=== PATIENT | male | born 1980 | race Caucasian/White ===

== ENCOUNTER 2017-03-11 22:35 | Inpatient (IN) | payer OTHER ==
[2017-03-11] MEDS ORDERED: Naloxone 0.4 mg/ml Inj (Adult) ONE (22:54)
[2017-03-11 22:59] LABS: BASO # 0.05 K/mm3 (0.0-2.0); BASO % 0.4 % (0.0-3.0); EOS # 0.1 (0.0-0.7); EOS % 0.4 % (1.5-5.0); GRAN # 8.59 (1.4-6.5); GRAN % 61.6 % (50.0-68.0); HEMATOCRIT 32.9 % (42.0-52.0); LYMPH # 4.4 (1.2-3.4); LYMPH % 31.8 % (22.0-35.0); MEAN CELL VOLUME 85.9 fl (80.0-105.0); MEAN CORPUSCULAR HEMOGLOBIN 29.2 pg (25.0-35.0); MEAN PLATELET VOLUME 9.6 fl (7.0-11.0); MONO # 0.8 (0.1-0.6); MONO % 5.8 % (1.0-6.0); RED CELL DISTRIBUTION WIDTH 13.1 % (11.5-14.5); WHITE BLOOD COUNT 13.9 10^3/ul (4.5-11.0)
[2017-03-11 23:03] LABS: VENOUS BLOOD GAS BASE EXCESS -20.2 mmol/L (0.0-2.0)
[2017-03-11 23:10] LABS: ALB/GLOB RATIO 1.1 (1.1-1.8); ALKALINE PHOSPHATASE 108 U/L (38-126); ALT/SGPT 220 U/L (7-56); AST/SGOT 303 U/L (17-59); BILIRUBIN,TOTAL 1.2 mg/dL (0.2-1.3); BLOOD UREA NITROGEN 29 mg/dL (7-21); CALCIUM 8.9 mg/dL (8.4-10.5); CARBON DIOXIDE 14 mmol/L (21-33); CHLORIDE 88 mmol/L (98-107); GFR AFRICAN-AMERICAN 35; GLUCOSE,RANDOM 110 mg/dL (70-110); LIPASE 49 U/L (23-300); MAGNESIUM 2.6 mg/dL (1.7-2.2); SODIUM 123 mmol/L (132-148)
[2017-03-11 23:15] LABS: VENOUS BLOOD PH 6.86 (7.32-7.43)
[2017-03-11 23:18] LABS: ABG MECHANICAL RATE 20; ARTERIAL BLOOD GAS HCO3 11.6 mmol/L (21-28); ATERIAL BLOOD GAS PEEP 5
[2017-03-11 23:19] LABS: INR 1.66 (0.93-1.08); PARTIAL THROMBOPLASTIN TIME 59.7 Seconds (23.7-30.8)
--- NOTE | 2017-03-11 23:20 | ED PDOC ---
Arrival/HPI - General Chief Complaint: Cardiac Arrest Time Seen by Provider: 03/11/17 22:48 Historian: EMS - History of Present Illness Narrative History of Present Illness (Text): 03/11/17 22:48 Alvaro Maier is a 36 year old male, whose past medical history includes substance abuse and depression, who presents to the emergency department with cardiac arrest as per EMS. Patient was found in cardiac arrest by ex-girlfriend with a unknown pills and alcohol found next to the patient. EMS arrived found patient in cardiac arrest and administered 3 doses of epinephrine en route without ROSC. Upon arrival, 2 additional doses of epinephrine, additional bicarbonate, amd narcan administered. ROSC obtained in emergency department, CPR reinitiated, and additional Atropine given. Time/Duration: Prior to Arrival Symptom Course: Unchanged Activities at Onset: Rest Context: Home Past Medical History - Provider Review Nursing Documentation Reviewed: Yes - Cardiac Hx Hypertension: Yes Hx Internal Defibrillator: No - Gastrointestinal Other/Comment: Liver damage - Psychiatric Hx Depression: Yes Hx Substance Use: No Family/Social History - Physician Review Nursing Documentation Reviewed: Yes Family/Social History: No Known Family HX Smoking Status: Heavy Smoker > 10 Cigarettes Daily Hx Alcohol Use: Yes Hx Substance Use: No Allergies/Home Meds Allergies/Adverse Reactions: Allergies No Known Allergies Allergy (Verified 03/11/17 23:03) Home Medications: Home Meds Medication Instructions Recorded Confirmed Acetaminophen/Butalbital/Caf 1 tab PO DAILY PRN 03/12/17 03/12/17 [Fioricet] Cholecalciferol (Vitamin D3) 5,000 unit PO DAILY 03/12/17 03/12/17 [Vitamin D3] Citalopram [celeXA] 40 mg PO DAILY 03/12/17 03/12/17 Clonazepam [Klonopin] 1 mg PO DAILY 03/12/17 03/12/17 Diclofenac Sodium [Voltaren] 75 mg PO BID 03/12/17 03/12/17 Ibuprofen [Motrin Tab] 800 mg PO BID 03/12/17 03/12/17 Losartan Potassium 100 mg PO DAILY 03/12/17 03/12/17 Propranolol [Inderal] 40 mg PO TID 03/12/17 03/12/17 amLODIPine [Norvasc] 10 mg PO DAILY 03/12/17 03/12/17 cloNIDine [clonidine HCl] 0.2 mg PO BID 03/12/17 03/12/17 Review of Systems - Review of Systems Systems not reviewed;Unavailable: Acuity of Condition Physical Exam Vital Signs Pulse Resp BP Pulse Ox 03/12/17 01:43 101/66 03/12/17 01:21 64 16 90/44 L 95 03/12/17 01:15 70 16 95/65 L 100 03/12/17 00:05 62 91 H 91/38 L 97 03/11/17 23:49 65 34 H 87/45 L 100 Appearance: Positive for: Other (Pale appearing) - Systems Exam Pupils: Present: Other (Fixed dilated pupils) Respiratory/Chest: Present: Other (coarse breath sounds bilaterally) Abdomen: Present: Distention (Abdomen mildly distended) Medical Decision Making ED Course and Treatment: 03/11/17 23:22 Impression: 36 year old male brought in by EMS presenting with cardiac arrest. Differential Diagnosis included but are not limited to: Plan: -- EKG -- Head CT w/o contrast -- Chest x-ray -- Urinalysis -- ABG -- VBG -- Reassess and disposition Progress Notes: - Lab Interpretations Lab Results: 03/11/17 22:49 03/11/17 22:49 Lab Results 03/11/17 23:13: pCO2 68 H, pO2 59.0 L, HCO3 11.6 L, ABG pH 6.84 L*, ABG Total CO2 13.7 L, ABG O2 Saturation 78.0 L, ABG Base Excess -23.0 L, ABG Potassium 6.1 H, Sodium 122.0 L, Chloride 91.0 L, Glucose 112 H, Lactate 10.5 H*, Mechanical Rate 20, FiO2 100.0, Tidal Volume 450, PEEP 5, Arterial Blood Potassium 6.1 H 03/11/17 22:49: Alcohol, Quantitative < 10 03/11/17 22:49: Salicylates < 1 L, Acetaminophen < 10.0 L 03/11/17 22:49: Sodium 123 L, Chloride 88 L, Potassium 7.3 H*, Carbon Dioxide 14 L, Anion Gap 28 H, BUN 29 H, Creatinine 2.5 H, Est GFR ( Amer) 35, Est GFR (Non-Af Amer) 29, Random Glucose 110, Calcium 8.9, Magnesium 2.6 H, Total Bilirubin 1.2, AST 303 H, ALT 220 H, Alkaline Phosphatase 108, Lactate Dehydrogenase 3576 H, Total Creatine Kinase 117, Troponin I < 0.01, Total Protein 7.0, Albumin 3.7, Globulin 3.4, Albumin/Globulin Ratio 1.1, Lipase 49 03/11/17 22:49: PT 17.9 H, INR 1.66 H, APTT 59.7 H 03/11/17 22:49: WBC 13.9 H, RBC 3.83, Hgb 11.2 L, Hct 32.9 L, MCV 85.9, MCH 29.2 , MCHC 34.0, RDW 13.1, Plt Count 290, MPV 9.6, Gran % 61.6, Lymph % (Auto) 31.8 , [place] % (Auto) 5.8, Eos % (Auto) 0.4 L, Baso % (Auto) 0.4, Gran # 8.59 H, Lymph # 4.4 H, [place] # 0.8 H, Eos # 0.1, Baso # 0.05 03/11/17 22:49: pO2 45, VBG pH 6.86 L*, VBG pCO2 81.0 H*, VBG HCO3 14.5 L, VBG Total CO2 17.0 L, VBG O2 Sat (Calc) 61.2, VBG Base Excess -20.2 L, VBG Potassium 7.6 H*, Sodium 119.0 L*, Chloride 89.0 L, Glucose 120 H, Lactate 9.4 H *, FiO2 21.0, Venous Blood Potassium 7.6 H* I have reviewed the lab results: Yes - RAD Interpretation Radiology Orders: 03/11/17 22:49 CHEST PORTABLE [RAD] Stat 03/11/17 23:14 HEAD W/O CONTRAST [CT] Stat - Medication Orders Current Medication Orders: Albuterol/Ipratropium (Duoneb 3 Mg/0.5 Mg (3 Ml) Ud) 3 ml IH Q2H PRN PRN Reason: Shortness of Breath Last Admin: 03/13/17 15:45 Dose: 3 ml Albuterol/Ipratropium (Duoneb 3 Mg/0.5 Mg (3 Ml) Ud) 3 ml IH [id number] MARICHUY Last Admin: 03/15/17 07:21 Dose: 3 ml Chlorhexidine Gluconate (Peridex) 15 ml PO BID [facility] Last Admin: 03/15/17 10:11 Dose: 15 ml Hydrocortisone Sodium Succinate (Solu-Cortef) 100 mg IVP Q8 [facility] Last Admin: 03/15/17 05:31 Dose: 100 mg IVP Administration Document 03/15/17 05:31 KNOX (Rec: 03/15/17 05:31 [id number]) Charges for Administration # of IVP Administrations 1 NOREPINEPHRINE BIT/0.9 % NACL (Levophed 4 Mg/ 250 Ml Ns Premixed) 4 mg in 250 mls @ 22.5 mls/hr IV .Q11H7M PRN; Protocol; 6 MCG/MIN PRN Reason: TITRATE PER MD ORDER Last Titration: 03/12/17 19:00 Dose: 0 mcg/min, 0 mls/hr Titration Intervention Document 03/12/17 19:00 KNOX (Rec: 03/12/17 21:51 KNOX [id number]) Titration Intake Titration Intake 150 Cumulative Intake 200 Cumulative Intake (Rx) 200 Waste Amount 0 Container Volume 50 Titration Dosing Titration Dose 0 IV Rate 0 Intake/Decrease Paused Cumulative Dose 3.2 Epinephrine HCl 1 mg/ Sodium (Chloride) 51 mls @ 3.06 mls/hr IV .[id number] PRN; Protocol; 1 MCG/MIN PRN Reason: TITRATE PER MD ORDER Last Titration: 03/12/17 19:00 Dose: 0 mcg/min, 0 mls/hr Titration Intervention Document 03/12/17 19:00 KNOX (Rec: 03/12/17 20:57 KNOX [id number]) Titration Intake Titration Intake 51 Cumulative Intake 51 Cumulative Intake (Rx) 51 Waste Amount 0 Container Volume 0 Titration Dosing Titration Dose 0 IV Rate 0 Intake/Decrease Infused Cumulative Dose 0.9999 Vancomycin HCl (Vancomycin 1gm) 1 gm in 250 mls @ 167 mls/hr IVPB DAILY MARICHUY PRN Reason: Protocol Last Admin: 03/14/17 15:30 Dose: Fentanyl Citrate (Fentanyl Citrate/Sodium Chloride 1 Mg/100 Ml) 1,000 mcg in 100 mls @ 5 mls/hr IV .Q20H PRN; Protocol; 50 MCG/HR PRN Reason: TITRATE PER MD ORDER Last Admin: 03/15/17 08:49 Dose: 150 mcg/hr, 15 mls/hr eMAR Start Stop Document 03/15/17 08:49 TNR (Rec: 03/15/17 08:50 TNR [id number]) Intravenous Solution Start Date 03/15/17 Start Time 08:49 End Date 03/15/17 End time 15:00 Total Infusion Time 371 Titration Intervention Document 03/15/17 08:49 TNR (Rec: 03/15/17 08:50 TNR [id number]) Titration Intake Cumulative Intake (Rx) 1,000 Waste Amount 0 Container Volume 100 Titration Dosing Titration Dose 150 IV Rate 15 Intake/Decrease Started/Running Cumulative Dose 31858 Midazolam 100 mg/100ml in NS (Midazolam 100 Mg/100ml In Ns) 100 mg in 100 mls @ 1 mls/hr IV .Q24H PRN; Protocol; 1 MG/HR PRN Reason: Agitation Last Admin: 03/15/17 03:46 Dose: 8 mg/hr, 8 mls/hr eMAR Start Stop Document 03/15/17 03:46 AE (Rec: 03/15/17 03:46 AE [id number]) Intravenous Solution Start Date 03/15/17 Start Time 03:46 Titration Intervention Document 03/15/17 03:46 AE (Rec: 03/15/17 03:46 AE [id number]) Titration Intake Cumulative Intake (Rx) 500 Waste Amount 0 Container Volume 100 Titration Dosing Titration Dose 8 IV Rate 8 Intake/Decrease Started/Running Cumulative Dose 500 Propofol (Diprivan) 1,000 mg in 100 mls @ 3.674 mls/hr IV .Q24H PRN; Protocol; 5 MCG/KG/MIN PRN Reason: TITRATE PER MD ORDER Last Admin: 03/15/17 10:22 Dose: 25 mcg/kg/min, 18.371 mls/hr eMAR Start Stop Document 03/15/17 10:22 TNR (Rec: 03/15/17 10:23 TNR [id number]) Intravenous Solution Start Date 03/15/17 Start Time 10:23 End Date 03/15/17 End time 16:00 Total Infusion Time 337 Titration Intervention Document 03/15/17 10:22 TNR (Rec: 03/15/17 10:23 TNR [id number]) Titration Intake Cumulative Intake (Rx) 1,500 Waste Amount 0 Container Volume 100 Titration Dosing Titration Dose 25 IV Rate 18.371 Intake/Decrease Started/Running Cumulative Dose 55226 Cisatracurium Besylate 100 mg/ (Sodium Chloride) 260 mls @ 1.91 mls/hr IV .Q24H PRN; Protocol; 0.1 MCG/KG/MIN PRN Reason: TITRATE PER MD ORDER Last Admin: 03/12/17 22:32 Dose: 0.5 mcg/kg/min, 9.55 mls/hr eMAR Start Stop Document 03/12/17 22:32 KNOX (Rec: 03/12/17 22:33 KNOX [facility] [place]-[id number]) Intravenous Solution Start Date 03/12/17 Start Time 22:33 Titration Intervention Document 03/12/17 22:32 KNOX (Rec: 03/12/17 22:33 KNOX [facility] [place]-[id number]) Titration Intake Cumulative Intake (Rx) 260 Waste Amount 0 Container Volume 260 Titration Dosing Titration Dose 0.5 IV Rate 9.55 Intake/Decrease Started/Running Cumulative Dose 99.9999 Levetiracetam 1,000 mg/ Sodium (Chloride) 110 mls @ 460 mls/hr IV Q12 MARICHUY Last Admin: 03/15/17 10:08 Dose: 460 mls/hr eMAR Start Stop Document 03/15/17 10:08 TNR (Rec: 03/15/17 10:09 TNR [id number]) Intravenous Solution Start Date 03/15/17 Start Time 10:09 End Date 03/15/17 End time 11:55 Total Infusion Time 106 Levofloxacin/Dextrose (Levaquin 250mg) 250 mg in 50 mls @ 50 mls/hr IVPB DAILY MARICHUY Last Admin: 03/15/17 10:14 Dose: 50 mls/hr eMAR Start Stop Document 03/15/17 10:14 TNR (Rec: 03/15/17 10:14 TNR [id number]) Intravenous Solution Start Date 03/15/17 Start Time 10:14 End Date 03/15/17 End time 11:25 Total Infusion Time 71 Potassium Chloride (Potassium Chloride 20 Meq/100 Ml) 20 meq in 100 mls @ 50 mls/hr IVPB Q2H MARICHUY Stop: 03/15/17 11:29 Last Admin: 03/15/17 10:09 Dose: 50 mls/hr eMAR Start Stop Document 03/15/17 10:09 TNR (Rec: 03/15/17 10:10 TNR [id number]) Intravenous Solution Start Date 03/15/17 Start Time 10:09 End Date 03/15/17 End time 11:55 Total Infusion Time 106 Potassium Chloride 40 meq/ (Sodium Chloride) 1,020 mls @ 100 mls/hr IV .[id number] [facility] Pantoprazole Sodium (Protonix Inj) 40 mg IVP DAILY MARICHUY Last Admin: 03/15/17 10:15 Dose: 40 mg IVP Administration Document 03/15/17 10:15 TNR (Rec: 03/15/17 10:15 TNR [id number]) Charges for Administration # of IVP Administrations 1 Propofol (Diprivan) 80 mg IVP ONCE ONE Stop: 03/15/17 11:01 Thiamine HCl (Vitamin B1 Inj) 100 mg IV TID MARICHUY Stop: 03/15/17 18:01 Last Admin: 03/15/17 10:18 Dose: 100 mg eMAR Start Stop Document 03/15/17 10:18 TNR (Rec: 03/15/17 10:19 TNR [id number]) Intravenous Solution Start Date 03/15/17 Start Time 10:18 End Date 03/15/17 End time 10:30 Total Infusion Time 12 Discontinued Medications Calcium Gluconate (Calcium Gluconate Iv) 1,000 mg IVP ONCE ONE Stop: 03/11/17 23:25 Last Admin: 03/12/17 00:55 Dose: 1,000 mg IVP Administration Document 03/12/17 00:55 EKEOO (Rec: 03/12/17 00:55 EKEOO [id number]) Charges for Administration # of IVP Administrations 1 Cisatracurium Besylate (Nimbex) 25 mg IV ONCE ONE Stop: 03/12/17 07:24 Last Admin: 03/12/17 07:45 Dose: 25 mg eMAR Start Stop Document 03/12/17 07:45 AE (Rec: 03/12/17 09:51 AE [facility] [place]-[id number]) Intravenous Solution Start Date 03/12/17 Start Time 07:40 End Date 03/12/17 End time 07:41 Total Infusion Time 1 Dextrose (Dextrose 50% Inj) 50 ml IVP STAT STA Stop: 03/11/17 23:25 Last Admin: 03/12/17 00:41 Dose: 50 ml IVP Administration Document 03/12/17 00:41 EKEOO (Rec: 03/12/17 00:41 EKEOO [id number]) Charges for Administration # of IVP Administrations 1 Furosemide (Lasix) 60 mg IVP ONCE ONE Stop: 03/12/17 05:37 Last Admin: 03/12/17 06:09 Dose: 60 mg MAR Blood Pressure Document 03/12/17 06:09 FDE (Rec: 03/12/17 06:09 [id number] Blood Pressure Blood Pressure (100/60-150/90) 123/66 IVP Administration Document 03/12/17 06:09 FDE (Rec: 03/12/17 06:09 [id number] Charges for Administration # of IVP Administrations 1 Sodium Chloride (Sodium Chloride 0.9%) 1,000 mls @ 999 mls/hr IV .Q1H1M STA Stop: 03/12/17 00:22 Last Admin: 03/11/17 23:25 Dose: 999 mls/hr eMAR Start Stop Document 03/11/17 23:25 EKEOO (Rec: 03/12/17 02:32 EKEOO [id number]) Intravenous Solution Start Date 03/11/17 Start Time 23:35 Sodium Chloride (Sodium Chloride 0.9%) 1,000 mls @ 999 mls/hr IV .Q1H1M STA Stop: 03/12/17 00:23 Last Admin: 03/11/17 23:35 Dose: 999 mls/hr eMAR Start Stop Document 03/11/17 23:35 EKEOO (Rec: 03/12/17 02:33 EKEOO [id number]) Intravenous Solution Start Date 03/11/17 Start Time 23:35 Sodium Bicarbonate 150 meq/ (Sodium Chloride) 1,150 mls @ 100 mls/hr IV .[id number] [facility] Last Admin: 03/12/17 00:31 Dose: 100 mls/hr eMAR Start Stop Document 03/12/17 00:31 EKEOO (Rec: 03/12/17 00:31 EKEOO [id number]) Intravenous Solution Start Date 03/12/17 Start Time 00:31 Vancomycin HCl (Vancomycin 1gm) 1 gm in 250 mls @ 167 mls/hr IVPB STAT STA PRN Reason: Protocol Stop: 03/12/17 00:56 Last Admin: 03/12/17 03:01 Dose: 167 mls/hr eMAR Start Stop Document 03/12/17 03:01 KA (Rec: 03/12/17 03:01 [id number]) Intravenous Solution Start Date 03/12/17 Start Time 03:01 End Date 03/12/17 End time 04:31 Total Infusion Time 90 Piperacillin Sod/Tazobactam Sod (Zosyn 3.375 In Ns 100ml) 100 mls @ 200 mls/hr IVPB STAT STA PRN Reason: Protocol Stop: 03/11/17 23:56 Last Admin: 03/12/17 00:00 Dose: 200 mls/hr eMAR Start Stop Document 03/12/17 00:00 EKEOO (Rec: 03/12/17 00:03 EKEOO [id number]) Intravenous Solution Start Date 03/12/17 Start Time 00:02 Vasopressin 20 units/ Dextrose 101 mls @ 12.12 mls/hr IV .Q8H20M MARICHUY; 0.04 U/ MIN PRN Reason: Protocol Last Admin: 03/12/17 01:43 Dose: 12.12 mls/hr eMAR Start Stop Document 03/12/17 01:43 EKEOO (Rec: 03/12/17 01:43 EKEOO [id number]) Intravenous Solution Start Date 03/12/17 Start Time 01:43 MAR Blood Pressure Document 03/12/17 01:43 EKEOO (Rec: 03/12/17 01:43 EKEOO [id number]) Blood Pressure Blood Pressure (100/60-150/90) 101/66 Ceftriaxone Sodium (Rocephin 1 Gram Ivpb) 1 gm in 100 mls @ 100 mls/hr IVPB DAILY MARICHUY PRN Reason: Protocol Last Admin: 03/12/17 09:54 Dose: 100 mls/hr eMAR Start Stop Document 03/12/17 09:54 AE (Rec: 03/12/17 09:54 AE [facility] [place]-[id number]) Intravenous Solution Start Date 03/12/17 Start Time 09:54 End Date 03/12/17 End time 10:54 Total Infusion Time 60 Sodium Chloride (Sodium Chloride 0.9%) 1,000 mls @ 999 mls/hr IV .Q1H1M STA Stop: 03/12/17 11:07 Last Admin: 03/12/17 10:00 Dose: 999 mls/hr eMAR Start Stop Document 03/12/17 10:00 AE (Rec: 03/12/17 13:35 AE [facility] [place]-[id number]) Intravenous Solution Start Date 03/12/17 Start Time 10:25 End Date 03/12/17 End time 11:25 Total Infusion Time 60 Magnesium Sulfate 2 gm/ Sodium (Chloride) 104 mls @ 102 mls/hr IVPB ONCE ONE Stop: 03/12/17 11:09 Last Admin: 03/12/17 13:33 Dose: 102 mls/hr eMAR Start Stop Document 03/12/17 13:33 AE (Rec: 03/12/17 13:34 AE [facility] [place]-[id number]) Intravenous Solution Start Date 03/12/17 Start Time 13:34 End Date 03/12/17 End time 14:34 Total Infusion Time 60 Levetiracetam 1,000 mg/ Sodium (Chloride) 110 mls @ 440 mls/hr IV ONCE ONE Stop: 03/12/17 12:44 Last Admin: 03/12/17 13:32 Dose: 440 mls/hr eMAR Start Stop Document 03/12/17 13:32 AE (Rec: 03/12/17 13:32 AE [facility] [place]-[id number]) Intravenous Solution Start Date 03/12/17 Start Time 13:32 End Date 03/12/17 End time 13:45 Total Infusion Time 13 Acetylcysteine 5,450 mg/ (Dextrose) 527.25 mls @ 125 mls/hr IV .Q4H14M ONE Stop: 03/12/17 19:13 Last Admin: 03/12/17 16:28 Dose: 125 mls/hr eMAR Start Stop Document 03/12/17 16:28 AE (Rec: 03/12/17 16:28 AE [facility] [place]-[id number]) Intravenous Solution Start Date 03/12/17 Start Time 16:28 End Date 03/12/17 End time 20:20 Total Infusion Time 232 Acetylcysteine 10,900 mg/ (Dextrose) 1,054.5 mls @ 62.5 mls/hr IV .[id number] ONE Stop: 03/13/17 11:52 Last Admin: 03/12/17 20:00 Dose: 62.5 mls/hr eMAR Start Stop Document 03/12/17 20:00 KNOX (Rec: 03/12/17 22:37 KNOX [facility] [place]-[id number]) Intravenous Solution Start Date 03/12/17 Start Time 20:00 Acetylcysteine 16,350 mg/ (Dextrose) 281.75 mls @ 331.75 mls/hr IV .Q51M ONE Stop: 03/12/17 14:50 Last Admin: 03/12/17 15:25 Dose: 331.75 mls/hr eMAR Start Stop Document 03/12/17 15:25 AE (Rec: 03/12/17 15:26 [place] [facility] [place] [id number] Intravenous Solution Start Date 03/12/17 Start Time 15:00 Piperacillin Sod/Tazobactam Sod (Zosyn 2.25 Gm In 0.9% 100 Ml) 2.25 gm in 100 mls @ 100 mls/hr IVPB Q8 MARICHUY PRN Reason: Protocol Stop: 03/12/17 22:59 Last Admin: 03/12/17 22:34 Dose: 100 mls/hr eMAR Start Stop Document 03/12/17 22:34 KNOX (Rec: 03/12/17 22:36 KNOX [facility] [place]-[id number]) Intravenous Solution Start Date 03/12/17 Start Time 22:36 Calcium Gluconate 1,000 mg/ (Dextrose) 110 mls @ 110 mls/hr IVPB ONCE ONE Stop: 03/13/17 09:35 Last Admin: 03/13/17 09:11 Dose: 110 mls/hr eMAR Start Stop Document 03/13/17 09:11 GLI (Rec: 03/13/17 09:12 [place]I [facility] [id number] Intravenous Solution Start Date 03/13/17 Start Time 09:12 End Date 03/13/17 Magnesium Sulfate 2 gm/ Sodium (Chloride) 104 mls @ 102 mls/hr IVPB ONCE ONE Stop: 03/13/17 09:45 Last Admin: 03/13/17 10:07 Dose: 102 mls/hr eMAR Start Stop Document 03/13/17 10:07 GLI (Rec: 03/13/17 10:07 [place]I [facility] [id number] Intravenous Solution Start Date 03/13/17 Start Time 10:07 End Date 03/13/17 Calcium Gluconate 1,000 mg/ (Dextrose) 110 mls @ 110 mls/hr IVPB ONCE ONE Stop: 03/13/17 16:52 Last Admin: 03/13/17 16:37 Dose: 110 mls/hr eMAR Start Stop Document 03/13/17 16:37 GLI (Rec: 03/13/17 16:38 GLI [id number]) Intravenous Solution Start Date 03/13/17 Start Time 16:37 End Date 03/13/17 Potassium Chloride (Potassium Chloride 20 Meq/100 Ml) 20 meq in 100 mls @ 50 mls/hr IVPB Q2H MARICHUY Stop: 03/13/17 23:29 Last Admin: 03/13/17 21:30 Dose: 50 mls/hr eMAR Start Stop Document 03/13/17 21:30 KNOX (Rec: 03/13/17 22:57 [place]X [facility] [place] [id number] Intravenous Solution Start Date 03/13/17 Start Time 21:30 Potassium Chloride (Potassium Chloride 10 Meq/100 Ml) 10 meq in 100 mls @ 100 mls/hr IVPB ONCE ONE Stop: 03/14/17 11:58 Last Admin: 03/14/17 11:50 Dose: 100 mls/hr eMAR Start Stop Document 03/14/17 11:50 TNR (Rec: 03/14/17 11:50 TNR [facility] [place] [id number] Intravenous Solution Start Date 03/14/17 Start Time 11:50 End Date 03/14/17 End time 12:55 Total Infusion Time 65 Potassium Chloride (Potassium Chloride 10 Meq/100 Ml) 10 meq in 100 mls @ 100 mls/hr IVPB ONCE ONE Stop: 03/14/17 18:45 Last Admin: 03/14/17 18:15 Dose: 100 mls/hr eMAR Start Stop Document 03/14/17 18:15 TNR (Rec: 03/14/17 18:15 TNR [facility] [place] [id number] Intravenous Solution Start Date 03/14/17 Start Time 18:15 End Date 03/14/17 End time 20:25 Total Infusion Time 130 Insulin Human Regular (Humulin R) 10 units IV STAT STA Stop: 03/11/17 23:25 Last Admin: 03/12/17 00:21 Dose: 10 units eMAR Start Stop Document 03/12/17 00:21 EKEOO (Rec: 03/12/17 00:21 EKEOO [id number]) Intravenous Solution Start Date 03/12/17 Start Time 00:21 Potassium Chloride (Potassium Chloride Oral Soln) 40 meq PO ONCE ONE Stop: 03/15/17 07:20 Last Admin: 03/15/17 07:43 Dose: 40 meq Propofol (Diprivan) 80 mg IVP ONCE ONE Stop: 03/12/17 07:42 Last Admin: 03/12/17 07:48 Dose: 80 mg IVP Administration Document 03/12/17 07:48 AE (Rec: 03/12/17 09:48 AE [facility] [id number] Charges for Administration # of IVP Administrations 1 Sodium Bicarbonate (Sodium Bicarbonate 8.4% (50 Meq) Syringe) 50 meq IVP ONCE ONE Stop: 03/11/17 23:25 Last Admin: 03/12/17 03:03 Dose: 50 meq IVP Administration Document 03/12/17 03:03 [facility] (Rec: 03/12/17 03:03 [facility] [id number] Charges for Administration # of IVP Administrations 1 Sodium Polystyrene Sulfonate (Kayexalate Oral Susp) 30 gm PO STAT STA Stop: 03/11/17 23:51 Last Admin: 03/12/17 04:20 Dose: 30 gm Sodium Polystyrene Sulfonate (Kayexalate Oral Susp) 30 gm ND STAT STA Stop: 03/12/17 01:13 - Scribe Statement The provider has reviewed the documentation as recorded by the Yoli Oswald Provider Scribe Attestation: All medical record entries made by the Scribsharon were at my direction and personally dictated by me. I have reviewed the chart and agree that the record accurately reflects my personal performance of the history, physical exam, medical decision making, and the department course for this patient. I have also personally directed, reviewed, and agree with the discharge instructions and disposition. Disposition/Present on Arrival - Present on Arrival Any Indicators Present on Arrival: No History of DVT/PE: No History of Uncontrolled Diabetes: No Urinary Catheter: No History of Decub. Ulcer: No History Surgical Site Infection Following: None - Disposition Have Diagnosis and Disposition been Completed?: Yes Diagnosis: Cardiac arrest, Overdose, Hyperkalemia, ARDS (adult respiratory distress syndrome) Disposition: HOSPITALIZED Disposition Time: 12:00 Patient Problems: Current Active Problems Problem Status Onset ARDS (adult respiratory distress syndrome) Acute Acute renal failure Acute Hyponatremia Acute Polyuria Acute Condition: CRITICAL
[2017-03-11 23:22] LABS: TROPONIN I < 0.01 ng/mL
[2017-03-11] MEDS ORDERED: Sodium Chloride 0.9% 1,000 ML IV STA ×2 (23:22→23:23)
[2017-03-11 23:23] LABS: POTASSIUM 7.3 mmol/L (3.6-5.0)
[2017-03-11 23:24] LABS: ARTERIAL BLOOD GAS PH 6.84 (7.35-7.45)
[2017-03-11] MEDS ORDERED: Insulin Regular 1 UNITS/0.01 ML ML IV STA (23:24)
[2017-03-11] MEDS ORDERED: Sodium Bicarbonate (8.4%) 50 Meq Syringe IVP ONE (23:24)
[2017-03-11] MEDS ORDERED: Dextrose 50% SYRINGE Inj (50 ml) IVP STA (23:24)
[2017-03-11] MEDS ORDERED: Vancomycin 1gm in NS 250ml 1 GM/250 ML BAG IVPB STA (23:27)
[2017-03-11] MEDS ORDERED: Piperacillin/Tazobact 3.375 gm 100 ML IVPB STA (23:27)
[2017-03-11] MEDS ORDERED: Sod Polystyrene Sulf 15 gm/60 ml Susp PO STA (23:50)
[2017-03-11] MEDS ORDERED: NOREPINEPHRINE BIT/0.9 % NACL 4 MG/250 ML BAG IV PRN (23:55)
[2017-03-12] MEDS ORDERED: EPINEPHrine- 1 MG in Sodium Chloride 0.9% 50 ML IV PRN (00:35)
[2017-03-12 01:06] LABS: URINE BILIRUBIN NEGATIVE (NEGATIVE); URINE BLOOD NEGATIVE (NEGATIVE); URINE GLUCOSE (UA) NEGATIVE (NEGATIVE); URINE KETONE NEGATIVE (NEGATIVE); URINE LEUKOCYTE ESTERASE NEGATIVE Leu/uL (NEGATIVE); URINE PROTEIN 100 mg/dL (<30 mg/dL)
[2017-03-12 01:09] LABS: URINE APPEARANCE SL CLOUDY (CLEAR); URINE COLOR YELLOW (YELLOW)
[2017-03-12] MEDS ORDERED: Sod Polystyrene Sulf 15 gm/60 ml Susp PR STA (01:12)
[2017-03-12] MEDS ORDERED: Vasopressin 20 UNITS in Dextrose 5% In Water 100 ML IV SCH (01:15)
[2017-03-12 01:32] LABS: URINE BACTERIA RARE (NEG); URINE RBC 0 - 2 /hpf (0-2); URINE WBC 0 - 2 /hpf (0-6)
--- NOTE | 2017-03-12 02:06 | CP.PCM.HP ---
<Marc Urbina - Last Filed: 03/12/17 02:48> History of Present Illness - History of Present Illness History of Present Illness: cc: cardiac arrest HPI: Patient is a 36yo male with past medical history of substance abuse, depression, bipolar disorder, hypertension, anxiety disorder that presented to [facility] via EMS in cardiac arrest. Or arrival to the ED, patient had received 3 doses of epinephrine without achievement of ROSC. ACLS continued in the ED and he was given 2 additional doses of epinephine, bicarbonate and narcan with achievement of ROSC. Per the patient's family and ex-girlfriend, he was last heard to be fine at approximately 9:30am. He was not heard from after this time and reportedly had a doctors appointment that he missed. After numerous attempts to contact the patient, his family became concerned and went to the apartment to check on him. He was found to be unresponsive laying on the floor of his room with numerous unknown pills and a bottle of patron near him. 911 was immediately contacted. 12 point review of systems is limited due to patient status. PMHx: as stated above PSHx: unknown Allergies: NKDA Family Hx: Non-contributory Social Hx: History of substance abuse, lives with a roommate Medications: Pharmacy: [facility] [id number] [place], [place] ; closed at the time of admission; per family, takes numerous medications for depression, anxiety, hypertension as well as percocet, oxycontin PMD: Dr. Almanza Present on Admission - Present on Admission Any Indicators Present on Admission: No Past Patient History - Past Social History Smoking Status: Heavy Smoker > 10 Cigarettes Daily - CARDIAC Hx Hypertension: Yes Hx Internal Defibrillator: No - GASTROINTESTINAL Other/Comment: Liver damage - PSYCHIATRIC Hx Depression: Yes Hx Substance Use: No Meds Allergies/Adverse Reactions: Allergies Allergy/AdvReac Type Severity Reaction Status Date / Time No Known Allergies Allergy Verified 03/11/17 23:03 Physical Exam - Constitutional Appears: In Acute Distress - Head Exam Head Exam: ATRAUMATIC, NORMOCEPHALIC - Eye Exam Additional comments: pupils fixed and dilated - ENT Exam ENT Exam: Mucous Membranes Moist - Neck Exam Neck exam: Positive for: Normal Inspection - Respiratory Exam Respiratory Exam: Respiratory Distress. absent: Rales, Wheezes Additional comments: b/l coarse breath sounds - Cardiovascular Exam Cardiovascular Exam: Irregular Rhythm, +S1, +S2. absent: Gallop, Rubs - GI/Abdominal Exam GI & Abdominal Exam: Distended, Soft. absent: Firm, Guarding, Rebound, Tenderness - Extremities Exam Extremities exam: Positive for: pedal pulses present. Negative for: pedal edema - Neurological Exam Additional comments: unresponsive, intubated - Skin Skin Exam: Dry, Intact Results - Vital Signs Recent Vital Signs: Last Vital Signs Temp Pulse 65 03/11/17 23:49 Resp 34 H 03/11/17 23:49 BP 101/66 03/12/17 01:43 Pulse Ox 100 03/11/17 23:49 - Labs Result Diagrams: 03/11/17 22:49 03/11/17 22:49 Labs: Laboratory Results - last 24 hr 03/11/17 03/11/17 03/11/17 22:49 22:49 22:49 WBC 13.9 H RBC 3.83 Hgb 11.2 L Hct 32.9 L MCV 85.9 MCH 29.2 MCHC 34.0 RDW 13.1 Plt Count 290 MPV 9.6 Gran % 61.6 Lymph % (Auto) 31.8 [place] % (Auto) 5.8 Eos % (Auto) 0.4 L Baso % (Auto) 0.4 Gran # 8.59 H Lymph # 4.4 H [place] # 0.8 H Eos # 0.1 Baso # 0.05 PT 17.9 H INR 1.66 H APTT 59.7 H pCO2 pO2 45 HCO3 ABG pH ABG Total CO2 ABG O2 Saturation ABG Base Excess ABG Potassium VBG pH 6.86 L* VBG pCO2 81.0 H* VBG HCO3 14.5 L VBG Total CO2 17.0 L VBG O2 Sat (Calc) 61.2 VBG Base Excess -20.2 L VBG Potassium 7.6 H* Sodium 119.0 L* Chloride 89.0 L Glucose 120 H Lactate 9.4 H* Mechanical Rate FiO2 21.0 Tidal Volume PEEP Potassium Carbon Dioxide Anion Gap BUN Creatinine Est GFR ( Amer) Est GFR (Non-Af Amer) Random Glucose Calcium Magnesium Total Bilirubin AST ALT Alkaline Phosphatase Lactate Dehydrogenase Total Creatine Kinase Troponin I Total Protein Albumin Globulin Albumin/Globulin Ratio Lipase Arterial Blood Potassium Venous Blood Potassium 7.6 H* Urine Color Urine Appearance Urine pH Ur Specific [place] Urine Protein Urine Glucose (UA) Urine Ketones Urine Blood Urine Nitrate Urine Bilirubin Urine Urobilinogen Ur Leukocyte Esterase Urine RBC Urine WBC Ur Epithelial Cells Urine Bacteria Hyaline Casts Urine Other Salicylates Urine Opiates Screen Urine Methadone Screen Acetaminophen Ur Barbiturates Screen Ur Phencyclidine Scrn Ur Amphetamines Screen U Benzodiazepines Scrn U Oth Cocaine Metabols U Cannabinoids Screen Alcohol, Quantitative 03/11/17 03/11/17 03/11/17 22:49 22:49 22:49 WBC RBC Hgb Hct MCV MCH MCHC RDW Plt Count MPV Gran % Lymph % (Auto) [place] % (Auto) Eos % (Auto) Baso % (Auto) Gran # Lymph # [place] # Eos # Baso # PT INR APTT pCO2 pO2 HCO3 ABG pH ABG Total CO2 ABG O2 Saturation ABG Base Excess ABG Potassium VBG pH VBG pCO2 VBG HCO3 VBG Total CO2 VBG O2 Sat (Calc) VBG Base Excess VBG Potassium Sodium 123 L Chloride 88 L Glucose Lactate Mechanical Rate FiO2 Tidal Volume PEEP Potassium 7.3 H* Carbon Dioxide 14 L Anion Gap 28 H BUN 29 H Creatinine 2.5 H Est GFR ( Amer) 35 Est GFR (Non-Af Amer) 29 Random Glucose 110 Calcium 8.9 Magnesium 2.6 H Total Bilirubin 1.2 AST 303 H ALT 220 H Alkaline Phosphatase 108 Lactate Dehydrogenase 3576 H Total Creatine Kinase 117 Troponin I < 0.01 Total Protein 7.0 Albumin 3.7 Globulin 3.4 Albumin/Globulin Ratio 1.1 Lipase 49 Arterial Blood Potassium Venous Blood Potassium Urine Color Urine Appearance Urine pH Ur Specific [place] Urine Protein Urine Glucose (UA) Urine Ketones Urine Blood Urine Nitrate Urine Bilirubin Urine Urobilinogen Ur Leukocyte Esterase Urine RBC Urine WBC Ur Epithelial Cells Urine Bacteria Hyaline Casts Urine Other Salicylates < 1 L Urine Opiates Screen Urine Methadone Screen Acetaminophen < 10.0 L Ur Barbiturates Screen Ur Phencyclidine Scrn Ur Amphetamines Screen U Benzodiazepines Scrn U Oth Cocaine Metabols U Cannabinoids Screen Alcohol, Quantitative < 10 03/11/17 03/12/17 03/12/17 23:13 00:55 00:55 WBC RBC Hgb Hct MCV MCH MCHC RDW Plt Count MPV Gran % Lymph % (Auto) [place] % (Auto) Eos % (Auto) Baso % (Auto) Gran # Lymph # [place] # Eos # Baso # PT INR APTT pCO2 68 H pO2 59.0 L HCO3 11.6 L ABG pH 6.84 L* ABG Total CO2 13.7 L ABG O2 Saturation 78.0 L ABG Base Excess -23.0 L ABG Potassium 6.1 H VBG pH VBG pCO2 VBG HCO3 VBG Total CO2 VBG O2 Sat (Calc) VBG Base Excess VBG Potassium Sodium 122.0 L Chloride 91.0 L Glucose 112 H Lactate 10.5 H* Mechanical Rate 20 FiO2 100.0 Tidal Volume 450 PEEP 5 Potassium Carbon Dioxide Anion Gap BUN Creatinine Est GFR ( Amer) Est GFR (Non-Af Amer) Random Glucose Calcium Magnesium Total Bilirubin AST ALT Alkaline Phosphatase Lactate Dehydrogenase Total Creatine Kinase Troponin I Total Protein Albumin Globulin Albumin/Globulin Ratio Lipase Arterial Blood Potassium 6.1 H Venous Blood Potassium Urine Color Yellow Urine Appearance Sl cloudy Urine pH 6.0 Ur Specific [place] 1.020 Urine Protein 100 H Urine Glucose (UA) Negative Urine Ketones Negative Urine Blood Negative Urine Nitrate Negative Urine Bilirubin Negative Urine Urobilinogen 1.0 H Ur Leukocyte Esterase Negative Urine RBC 0 - 2 Urine WBC 0 - 2 Ur Epithelial Cells 1 - 3 Urine Bacteria Rare Hyaline Casts 0 - 2 Urine Other Usperm Salicylates Urine Opiates Screen Positive H Urine Methadone Screen Negative Acetaminophen Ur Barbiturates Screen Positive H Ur Phencyclidine Scrn Negative Ur Amphetamines Screen Negative U Benzodiazepines Scrn Positive H U Oth Cocaine Metabols Negative U Cannabinoids Screen Negative Alcohol, Quantitative Assessment & Plan - Assessment and Plan (Free Text) Plan: 36yo male with past medical history of substance abuse, depression, anxiety, hypertension presents with cardiac arrest secondary to drug overdose Neuro: -Patient intubated and unresponsive on no sedative medication -Maintain temp ~92-94F -Neurochecks q2h -Urine toxicology positive for opiates, barbiturates and benzos -CT Head pending -Seizure precautions -Neurology consulted - Dr. Rene Cardio: -Patient weaned off dopamine and started on levophed, epinephrine and vasopressin with goal MAP > 70 -Placed on transcutaneous pacing -Troponin negative x1, trending -EKG reviewed; atrial fibrillation with slow ventricular response (51bpm), nonspecific intraventricular block -Cardiology consulted - Dr. Anderson Pulm: -ABG and CXR reviewed -Currently on PRVC 450/20/10/100%; PEEP increased from 5 to 10 given low pO2 on initial ABG -Repeat ABG pending GI: -NPO -NGT placed -GI prophylaxis with protonix Renal: -Kayexalate q2h until achievement of bowel movement -Bicarbonate drip @ 150cc/hr -Will continue to monitor and treat electrolyte abnormalities as indicated -Monitor I's and O's Endo: -Fingersticks q2h -Maintain euglycemia between 140-180's -Stress dose steroids with solu-cortef 100mg q8h ID: -Blood and urine cultures drawn -Patient empirically treated with rocephin and vancomycin GI/DVT Prophylaxis: Protonix/SCD's Patient seen and case reviewed and discussed with attending, Dr. Roldan - Date & Time Date: 03/12/17 Time: 02:09 <Ramon Roldan Q - Last Filed: 03/12/17 04:32> Results - Vital Signs Recent Vital Signs: Last Vital Signs Temp 94.1 F L 03/12/17 03:56 Pulse 60 03/12/17 03:56 Resp 16 03/12/17 01:21 BP 101/66 03/12/17 01:43 Pulse Ox 69 L 03/12/17 03:56 - Labs Result Diagrams: 03/11/17 22:49 03/11/17 22:49 Labs: Laboratory Results - last 24 hr 03/12/17 03/12/17 00:55 00:55 Urine Color Yellow Urine Appearance Sl cloudy Urine pH 6.0 Ur Specific [place] 1.020 Urine Protein 100 H Urine Glucose (UA) Negative Urine Ketones Negative Urine Blood Negative Urine Nitrate Negative Urine Bilirubin Negative Urine Urobilinogen 1.0 H Ur Leukocyte Esterase Negative Urine RBC 0 - 2 Urine WBC 0 - 2 Ur Epithelial Cells 1 - 3 Urine Bacteria Rare Hyaline Casts 0 - 2 Urine Other Usperm Urine Opiates Screen Positive H Urine Methadone Screen Negative Ur Barbiturates Screen Positive H Ur Phencyclidine Scrn Negative Ur Amphetamines Screen Negative U Benzodiazepines Scrn Positive H U Oth Cocaine Metabols Negative U Cannabinoids Screen Negative Attending/Attestation - Attestation I have personally seen and examined this patient.: Yes I have fully participated in the care of the patient.: Yes I have reviewed all pertinent clinical information: Yes Notes (Text): 03/12/17 04:23 I agree with the above mentioned note and exam by the resident with the addition /exception of the followin36 y/o male presented to the ED via EMS s/p Cardiac arrest; additional arrest in the ED requiring ACLS; total downtime greater than 20 minutes presenting with distributive shock As per the ex-girlfriend patient was found with empty bottles of opiates, benzo and barbituates as well as a bottle of hard liquour; appears to be a suicide attempt Bicarb drip started; hyperkalemia treated in the ED; continued treatment with kayexalate; no meaningful response during my exam; pupils fixed and dilated no acute findings on initial head CT extremely acidotic; +/- rhabdo with OTONIEL Shock being treated with multiple vasopressors (Levo + Epi); Vasopressin added along with stress dose steroids initially on Dopamine along with transcutaneous pacing due to complete heart block; dopamine weaned off CXR reviewed showing bilateral infiltrates, appearance of ARDS Will aim to maintain normoglycemia; fingerstick Q2 Currently hypothermic at 93F, will maintain for the next 12 hours and then re- warm poor prognosis given extended down-time, vasopressor requirement and lack of meaningful response thus far Case discussed at length with Dr. García in the ED all labs and images available thus far have been reviewed personally Total time of care: 60 minutes
--- NOTE | 2017-03-12 02:40 | CT ---
EXAM: CT Head Without Intravenous Contrast EXAM DATE/TIME: 03/11/2017 11:14 PM CLINICAL HISTORY: 36 years old, male; Signs and symptoms; Other: Cardiac arrest; Additional info: Head TECHNIQUE: Axial computed tomography images of the head/brain without intravenous contrast. All CT scans at this facility use one or more dose reduction techniques, viz.: automated exposure control; ma/kV adjustment per patient size (including targeted exams where dose is matched to indication; i.e. head); or iterative reconstruction technique. COMPARISON: No relevant prior studies available. FINDINGS: LIMITATIONS: Mild to moderate streak/motion artifact. BRAIN: No definite acute abnormality identified. No definite acute hemorrhage seen within the brain. No acute extra-axial fluid collections visualized. No evidence of significant mass effect within the brain. VENTRICLES: No evidence of significant hydrocephalus. BONES/JOINTS: No acute fractures or other acute bony abnormality noted. SOFT TISSUES: Soft tissue swelling in the upper, posterior scalp. This could be secondary to recent head trauma, although no history of injury is given. Recommend clinical correlation. SINUSES: Visualized paranasal sinuses appear clear. MASTOID AIR CELLS: Mastoid air cells appear clear. TUBES, LINES AND DEVICES: Tubes are seen in the nasopharynx, most likely endotracheal and nasogastric tubes. IMPRESSION: - No acute findings seen within the brain, allowing for motion artifact. - See above for remaining findings.
[2017-03-12 05:31] LABS: ABG MECHANICAL RATE 20; ARTERIAL BLOOD GAS HCO3 15.3 mmol/L (21-28); ATERIAL BLOOD GAS PEEP 10
[2017-03-12] MEDS: Midazolam 100 mg/100ml in NS 100 MG/100 ML SOL IV PRN ×3 (05:42→22:54)
[2017-03-12] MEDS: Fentanyl 1000mcg/100ml NS 1,000 MCG/100 ML BAG IV PRN ×2 (05:45→19:08)
[2017-03-12 06:08] LABS: ARTERIAL BLOOD GAS PH 7.17 (7.35-7.45)
[2017-03-12 06:12] LABS: VENOUS BLOOD GAS BASE EXCESS -12.5 mmol/L (0.0-2.0)
[2017-03-12 06:14] LABS: VENOUS BLOOD PH 7.08 (7.32-7.43)
[2017-03-12 07:08] LABS: TROPONIN I 0.08 ng/mL
[2017-03-12] MEDS ORDERED: Propofol 10 mg/ml 1,000 MG/100 ML VIAL ONE (07:39)
[2017-03-12] MEDS ORDERED: Propofol 10 mg/ml Inj (20 ML) IVP ONE (07:41)
[2017-03-12] MEDS: Propofol 10 mg/ml 1,000 MG/100 ML VIAL IV PRN ×2 (07:45→19:11)
[2017-03-12 07:47] VITALS: BMI 39.9
--- NOTE | 2017-03-12 07:52 | RAD ---
HISTORY: cardiac arrest COMPARISON: None available. . FINDINGS: Endotracheal tube terminates at the mid trachea just below level of clavicles. In these 2 terminates at the mid mediastinum likely at the mid esophagus. Advancement of the NGT further into the stomach is recommended least another 20-30 cm. LUNGS: Multifocal dense airspace disease is suggested bilaterally. PLEURA: No significant pleural effusion identified, no pneumothorax apparent. CARDIOVASCULAR: Cardiac silhouette appears somewhat prominent with pulmonary venous congestion probable. Clinically correlate further. OSSEOUS STRUCTURES: No significant abnormalities. VISUALIZED UPPER ABDOMEN: Normal. OTHER FINDINGS: None. IMPRESSION: Bilateral heterogeneous airspace disease is appreciated with no pleural effusion or pneumothorax though pulmonary venous congestion is not excluded bilaterally. Further clinical correlation is advised.
--- NOTE | 2017-03-12 07:54 | RAD ---
HISTORY: ngt placement COMPARISON: Portable chest 03/11/2017. FINDINGS: Endotracheal tube is unchanged in position with nasogastric tube terminating in the gastric viscus at this time. LUNGS: Increased bilateral airspace disease is identified however image appears to captured at a late expiratory phase. Atelectasis made underlie overall bilateral pulmonary opacity. PLEURA: No right pleural effusion. A left pleural effusion is not excluded. No pneumothorax bilaterally. CARDIOVASCULAR: Cardiac silhouette is now obscured by infiltrates. OSSEOUS STRUCTURES: No significant abnormalities. VISUALIZED UPPER ABDOMEN: Normal. OTHER FINDINGS: None. IMPRESSION: 1. Potential interval worsening bilateral airspace disease however images capture in expiration. 2. Left pleural effusion not excluded. 3. Pulmonary venous congestion not excluded. 4. Nasogastric tube in now adjusted to terminate in the stomach.
[2017-03-12] MEDS ORDERED: Cisatracurium Besylate 100 MG in Sodium Chloride 0.9% 250 ML IV SCH (08:00)
[2017-03-12 08:26] LABS: BASO # 0.01 K/mm3 (0.0-2.0); BASO % 0.1 % (0.0-3.0); EOS % 0.1 % (1.5-5.0); GRAN # 10.4 (1.4-6.5); GRAN % 83.9 % (50.0-68.0); HEMATOCRIT 29.7 % (42.0-52.0); LYMPH # 1.4 (1.2-3.4); LYMPH % 11.1 % (22.0-35.0); MEAN CELL VOLUME 83.2 fl (80.0-105.0); MEAN CORPUSCULAR HEMOGLOBIN 29.4 pg (25.0-35.0); MEAN CORPUSCULAR HGB CONC 35.4 g/dl (31.0-37.0); MEAN PLATELET VOLUME 8.9 fl (7.0-11.0); MONO # 0.6 (0.1-0.6); MONO % 4.8 % (1.0-6.0); WHITE BLOOD COUNT 12.4 10^3/ul (4.5-11.0)
[2017-03-12 08:38] LABS: BILIRUBIN,TOTAL 2.2 mg/dL (0.2-1.3); CALCIUM 7.2 mg/dL (8.4-10.5); MAGNESIUM 1.5 mg/dL (1.7-2.2); PHOSPHOROUS 5.8 mg/dL (2.5-4.5); POTASSIUM 4.8 mmol/L (3.6-5.0); TOTAL PROTEIN 6.5 g/dL (5.8-8.3)
[2017-03-12 08:43] LABS: INR 1.59 (0.93-1.08)
[2017-03-12 08:49] LABS: TROPONIN I 0.1 ng/mL
[2017-03-12 08:57] LABS: ABG MECHANICAL RATE 18; ARTERIAL BLOOD GAS HCO3 19.2 mmol/L (21-28); ATERIAL BLOOD GAS PEEP 20
[2017-03-12 09:28] LABS: VENOUS BLOOD GAS BASE EXCESS -8.9 mmol/L (0.0-2.0)
[2017-03-12 09:31] LABS: VENOUS BLOOD PH 7.18 (7.32-7.43)
--- NOTE | 2017-03-12 09:38 | CP.PCM.CON ---
<Radha Villatoro - Last Filed: 03/12/17 09:29> History of Present Illness - History of Present Illness History of Present Illness: Neurology Consult Note for Skylar Segovia PGY2 Reason for consult: Cardiac arrest This is a 36Y M with PMH anxiety/depression, bipolar disorder, HTN, and substance abuse who was found to be in cardiac arrest with ROSC in ED. According to family, patient was last heard from at 9am yesterday and had apparently missed a doctors appointment. Family began to get concerned and went to the patients apartment and found him unresponsive with a bottle of tequila as well as multiple pills. It is unclear how long he was down for. Urine tox was positive for barbiturates, opiates and benzos. Alcohol level was low. Patient is now intubated and sedated. As per nursing, this am patient was having seizure like activity and was biting the ET tube. ROS could not be obtained PMH: anxiety/depression, bipolar disorder, HTN, and substance abuse PSH: denies SH: + substance abuse, + smoking, + alcohol abuse FH: Non-contributory Review of Systems - Review of Systems Systems not reviewed;Unavailable: Intubated Past Patient History - Past Social History Smoking Status: Heavy Smoker > 10 Cigarettes Daily Drugs: Opiates, Prescription medications Home Situation {Lives}: Alone - CARDIAC Hx Hypertension: Yes Hx Internal Defibrillator: No - MUSCULOSKELETAL/RHEUMATOLOGICAL Hx Falls: No - GASTROINTESTINAL Other/Comment: Liver damage - PSYCHIATRIC Hx Substance Use: Yes Meds Allergies/Adverse Reactions: Allergies Allergy/AdvReac Type Severity Reaction Status Date / Time No Known Allergies Allergy Verified 03/11/17 23:03 - Medications Medications: Current Medications Hydrocortisone Sodium Succinate (Solu-Cortef) 100 mg IVP Q8 [facility] Last Admin: 03/12/17 05:47 Dose: 100 mg Sodium Bicarbonate 150 meq/ (Sodium Chloride) 1,150 mls @ 100 mls/hr IV .[id number] [facility] Last Admin: 03/12/17 00:31 Dose: 100 mls/hr NOREPINEPHRINE BIT/0.9 % NACL (Levophed 4 Mg/ 250 Ml Ns Premixed) 4 mg in 250 mls @ 22.5 mls/hr IV .Q11H7M PRN; Protocol; 6 MCG/MIN PRN Reason: TITRATE PER MD ORDER Last Titration: 10/06/17 03:40 Dose: 10 mcg/min, 37.5 mls/hr Epinephrine HCl 1 mg/ Sodium (Chloride) 51 mls @ 3.06 mls/hr IV .[id number] PRN; Protocol; 1 MCG/MIN PRN Reason: TITRATE PER MD ORDER Last Admin: 03/12/17 00:54 Dose: 1 mcg/min, 3.06 mls/hr Vasopressin 20 units/ Dextrose 101 mls @ 12.12 mls/hr IV .[id number] [facility]; 0.04 U/ MIN PRN Reason: Protocol Last Admin: 03/12/17 01:43 Dose: 12.12 mls/hr Ceftriaxone Sodium (Rocephin 1 Gram Ivpb) 1 gm in 100 mls @ 100 mls/hr IVPB DAILY [facility] PRN Reason: Protocol Vancomycin HCl (Vancomycin 1gm) 1 gm in 250 mls @ 167 mls/hr IVPB DAILY [facility] PRN Reason: Protocol Fentanyl Citrate (Fentanyl Citrate/Sodium Chloride 1 Mg/100 Ml) 1,000 mcg in 100 mls @ 5 mls/hr IV .Q20H PRN; Protocol; 50 MCG/HR PRN Reason: TITRATE PER MD ORDER Last Admin: 03/12/17 05:45 Dose: 50 mcg/hr, 5 mls/hr Midazolam 100 mg/100ml in NS (Midazolam 100 Mg/100ml In Ns) 100 mg in 100 mls @ 1 mls/hr IV .Q24H PRN; Protocol; 1 MG/HR PRN Reason: Agitation Last Admin: 03/12/17 05:42 Dose: 1 mg/hr, 1 mls/hr Propofol (Diprivan) 1,000 mg in 100 mls @ 3.674 mls/hr IV .Q24H PRN; Protocol; 5 MCG/KG/MIN PRN Reason: TITRATE PER MD ORDER Cisatracurium Besylate 100 mg/ (Sodium Chloride) 260 mls @ 1.91 mls/hr IV .Q24H PRN; Protocol; 0.1 MCG/KG/MIN PRN Reason: TITRATE PER MD ORDER Pantoprazole Sodium (Protonix Inj) 40 mg IVP DAILY [facility] Physical Exam - Constitutional Appears: No Acute Distress - Head Exam Head Exam: ATRAUMATIC, NORMAL INSPECTION, NORMOCEPHALIC - Eye Exam Eye Exam: Normal appearance, PERRL Pupil Exam: Mydriatic, NORMAL ACCOMODATION, PERRL - ENT Exam ENT Exam: Mucous Membranes Dry - Respiratory Exam Respiratory Exam: Clear to Auscultation Bilateral, NORMAL BREATHING PATTERN. absent: Rales, Rhonchi, Wheezes - Cardiovascular Exam Cardiovascular Exam: REGULAR RHYTHM, +S1, +S2. absent: Gallop, Rubs, Systolic Murmur - GI/Abdominal Exam GI & Abdominal Exam: Normal Bowel Sounds, Soft. absent: Rebound, Rigid, Tenderness - Extremities Exam Extremities exam: Positive for: normal inspection. Negative for: calf tenderness, pedal edema - Neurological Exam Neurological exam: CN II-XII Intact Additional comments: pt intubated and sedated. Negative babinski - Skin Skin Exam: Dry, Intact, Normal Color, Warm Results - Vital Signs Recent Vital Signs: Last Vital Signs Temp 95.4 F L 03/12/17 06:10 Pulse 65 03/12/17 06:10 Resp 18 03/12/17 08:08 BP 123/66 03/12/17 06:09 Pulse Ox 91 L 03/12/17 08:08 - Labs Result Diagrams: 03/12/17 08:15 03/12/17 08:15 Labs: Laboratory Results - last 24 hr 03/12/17 03/12/17 03/12/17 00:55 00:55 05:24 WBC RBC Hgb Hct MCV MCH MCHC RDW Plt Count MPV Gran % Lymph % (Auto) [place] % (Auto) Eos % (Auto) Baso % (Auto) Gran # Lymph # [place] # Eos # Baso # PT INR pCO2 42 pO2 29.0 L* HCO3 15.3 L ABG pH 7.17 L* ABG Total CO2 16.6 L ABG O2 Saturation 52.5 L ABG Base Excess -12.7 L ABG Potassium 5.4 H VBG pH VBG pCO2 VBG HCO3 VBG Total CO2 VBG O2 Sat (Calc) VBG Base Excess VBG Potassium Sodium 124.0 L Chloride 92.0 L Glucose 136 H Lactate 5.2 H* Mechanical Rate 20 FiO2 100.0 Tidal Volume 400 PEEP 10 Potassium Carbon Dioxide Anion Gap BUN Creatinine Est GFR ( Amer) Est GFR (Non-Af Amer) Random Glucose Calcium Phosphorus Magnesium Total Bilirubin AST ALT Alkaline Phosphatase Total Creatine Kinase CK-MB (CK-2) CK-MB (CK-2) % Troponin I Total Protein Albumin Globulin Albumin/Globulin Ratio Arterial Blood Potassium 5.4 H Venous Blood Potassium Urine Color Yellow Urine Appearance Sl cloudy Urine pH 6.0 Ur Specific [place] 1.020 Urine Protein 100 H Urine Glucose (UA) Negative Urine Ketones Negative Urine Blood Negative Urine Nitrate Negative Urine Bilirubin Negative Urine Urobilinogen 1.0 H Ur Leukocyte Esterase Negative Urine RBC 0 - 2 Urine WBC 0 - 2 Ur Epithelial Cells 1 - 3 Urine Bacteria Rare Hyaline Casts 0 - 2 Urine Other Usperm Urine Opiates Screen Positive H Urine Methadone Screen Negative Ur Barbiturates Screen Positive H Ur Phencyclidine Scrn Negative Ur Amphetamines Screen Negative U Benzodiazepines Scrn Positive H U Oth Cocaine Metabols Negative U Cannabinoids Screen Negative 03/12/17 03/12/17 03/12/17 05:30 05:30 08:15 WBC RBC Hgb Hct MCV MCH MCHC RDW Plt Count MPV Gran % Lymph % (Auto) [place] % (Auto) Eos % (Auto) Baso % (Auto) Gran # Lymph # [place] # Eos # Baso # PT INR pCO2 pO2 33 HCO3 ABG pH ABG Total CO2 ABG O2 Saturation ABG Base Excess ABG Potassium VBG pH 7.08 L* VBG pCO2 61.0 H VBG HCO3 18.1 L VBG Total CO2 20.0 L VBG O2 Sat (Calc) 46.3 VBG Base Excess -12.5 L VBG Potassium 5.6 H Sodium 124.0 L 128 L Chloride 93.0 L 94 L Glucose 137 H Lactate 5.5 H* Mechanical Rate FiO2 21.0 Tidal Volume PEEP Potassium 4.8 Carbon Dioxide 18 L Anion Gap 21 H BUN 37 H Creatinine 3.0 H Est GFR ( Amer) 28 Est GFR (Non-Af Amer) 24 Random Glucose 118 H Calcium 7.2 L Phosphorus 5.8 H Magnesium 1.5 L Total Bilirubin 2.2 H AST 743 H D ALT 502 H Alkaline Phosphatase 100 Total Creatine Kinase 233 H CK-MB (CK-2) 2.5 CK-MB (CK-2) % Cancelled Troponin I 0.08 D 0.10 D Total Protein 6.5 Albumin 3.2 Globulin 3.3 Albumin/Globulin Ratio 1.0 L Arterial Blood Potassium Venous Blood Potassium 5.6 H Urine Color Urine Appearance Urine pH Ur Specific [place] Urine Protein Urine Glucose (UA) Urine Ketones Urine Blood Urine Nitrate Urine Bilirubin Urine Urobilinogen Ur Leukocyte Esterase Urine RBC Urine WBC Ur Epithelial Cells Urine Bacteria Hyaline Casts Urine Other Urine Opiates Screen Urine Methadone Screen Ur Barbiturates Screen Ur Phencyclidine Scrn Ur Amphetamines Screen U Benzodiazepines Scrn U Oth Cocaine Metabols U Cannabinoids Screen 03/12/17 03/12/17 03/12/17 08:15 08:15 08:50 WBC 12.4 H RBC 3.57 Hgb 10.5 L Hct 29.7 L MCV 83.2 MCH 29.4 MCHC 35.4 RDW 13.0 Plt Count 194 MPV 8.9 Gran % 83.9 H Lymph % (Auto) 11.1 L [place] % (Auto) 4.8 Eos % (Auto) 0.1 L Baso % (Auto) 0.1 Gran # 10.40 H Lymph # 1.4 [place] # 0.6 Eos # 0.0 Baso # 0.01 PT 17.2 H INR 1.59 H pCO2 49 H pO2 74.0 L HCO3 19.2 L ABG pH 7.20 L ABG Total CO2 20.7 L ABG O2 Saturation 94.8 L ABG Base Excess -8.9 L ABG Potassium 4.5 VBG pH VBG pCO2 VBG HCO3 VBG Total CO2 VBG O2 Sat (Calc) VBG Base Excess VBG Potassium Sodium 125.0 L Chloride 98.0 Glucose 119 H Lactate 1.7 Mechanical Rate 18 FiO2 100.0 Tidal Volume 440 PEEP 20 Potassium Carbon Dioxide Anion Gap BUN Creatinine Est GFR ( Amer) Est GFR (Non-Af Amer) Random Glucose Calcium Phosphorus Magnesium Total Bilirubin AST ALT Alkaline Phosphatase Total Creatine Kinase CK-MB (CK-2) CK-MB (CK-2) % Troponin I Total Protein Albumin Globulin Albumin/Globulin Ratio Arterial Blood Potassium 4.5 Venous Blood Potassium Urine Color Urine Appearance Urine pH Ur Specific [place] Urine Protein Urine Glucose (UA) Urine Ketones Urine Blood Urine Nitrate Urine Bilirubin Urine Urobilinogen Ur Leukocyte Esterase Urine RBC Urine WBC Ur Epithelial Cells Urine Bacteria Hyaline Casts Urine Other Urine Opiates Screen Urine Methadone Screen Ur Barbiturates Screen Ur Phencyclidine Scrn Ur Amphetamines Screen U Benzodiazepines Scrn U Oth Cocaine Metabols U Cannabinoids Screen Assessment & Plan - Assessment and Plan (Free Text) Assessment: This is a 36Y M with PMH of anxiety/depression, bipolar disorder, HTN, and substance abuse who was admitted for cardiac arrest who unknown period of time s /p ROSC. Patient found to be positive for multiple substances on urine tox ( benzo, barbiturate and opiates). Patient was found to have seizure like activity this am. This can be secondary to withdrawal as well as s/p cardiac arrest as well as metabolic derangements. Head CT did not show any acute abnormalities. Plan: - EEG ordered - Will obtain brain MRI - Continue Midazolam prn agitation - Management as per ICU team - Prognosis is guarded. Case seen, discussed and reviewed with Dr. Rene. Skylar Villatoro PGY2 - Date & Time Date: 03/12/17 Time: 09:51 <Ivan Rene - Last Filed: 03/12/17 13:07> Meds - Medications Medications: Current Medications Hydrocortisone Sodium Succinate (Solu-Cortef) 100 mg IVP Q8 [facility] Last Admin: 03/12/17 05:47 Dose: 100 mg NOREPINEPHRINE BIT/0.9 % NACL (Levophed 4 Mg/ 250 Ml Ns Premixed) 4 mg in 250 mls @ 22.5 mls/hr IV .Q11H7M PRN; Protocol; 6 MCG/MIN PRN Reason: TITRATE PER MD ORDER Last Titration: 03/12/17 03:40 Dose: 10 mcg/min, 37.5 mls/hr Epinephrine HCl 1 mg/ Sodium (Chloride) 51 mls @ 3.06 mls/hr IV .[id number] PRN; Protocol; 1 MCG/MIN PRN Reason: TITRATE PER MD ORDER Last Admin: 03/12/17 00:54 Dose: 1 mcg/min, 3.06 mls/hr Ceftriaxone Sodium (Rocephin 1 Gram Ivpb) 1 gm in 100 mls @ 100 mls/hr IVPB DAILY [facility] PRN Reason: Protocol Last Admin: 03/12/17 09:54 Dose: 100 mls/hr Vancomycin HCl (Vancomycin 1gm) 1 gm in 250 mls @ 167 mls/hr IVPB DAILY [facility] PRN Reason: Protocol Last Admin: 03/12/17 09:54 Dose: 167 mls/hr Fentanyl Citrate (Fentanyl Citrate/Sodium Chloride 1 Mg/100 Ml) 1,000 mcg in 100 mls @ 5 mls/hr IV .Q20H PRN; Protocol; 50 MCG/HR PRN Reason: TITRATE PER MD ORDER Last Admin: 03/12/17 05:45 Dose: 50 mcg/hr, 5 mls/hr Midazolam 100 mg/100ml in NS (Midazolam 100 Mg/100ml In Ns) 100 mg in 100 mls @ 1 mls/hr IV .Q24H PRN; Protocol; 1 MG/HR PRN Reason: Agitation Last Admin: 03/12/17 05:42 Dose: 1 mg/hr, 1 mls/hr Propofol (Diprivan) 1,000 mg in 100 mls @ 3.674 mls/hr IV .Q24H PRN; Protocol; 5 MCG/KG/MIN PRN Reason: TITRATE PER MD ORDER Last Admin: 03/12/17 07:45 Dose: 15 mcg/kg/min, 11.022 mls/hr Cisatracurium Besylate 100 mg/ (Sodium Chloride) 260 mls @ 1.91 mls/hr IV .Q24H PRN; Protocol; 0.1 MCG/KG/MIN PRN Reason: TITRATE PER MD ORDER Last Admin: 03/12/17 09:51 Dose: 0.1 mcg/kg/min, 1.91 mls/hr Levetiracetam 1,000 mg/ Sodium (Chloride) 110 mls @ 460 mls/hr IV Q12 [facility] Pantoprazole Sodium (Protonix Inj) 40 mg IVP DAILY [facility] Last Admin: 03/12/17 09:53 Dose: 40 mg Results - Vital Signs Recent Vital Signs: Last Vital Signs Temp 95.4 F L 03/12/17 06:10 Pulse 65 03/12/17 06:10 Resp 18 03/12/17 08:08 BP 123/66 03/12/17 06:09 Pulse Ox 91 L 03/12/17 08:08 - Labs Result Diagrams: 03/12/17 08:15 03/12/17 08:15 Labs: Laboratory Results - last 24 hr 03/12/17 03/12/17 03/12/17 00:55 00:55 05:24 WBC RBC Hgb Hct MCV MCH MCHC RDW Plt Count MPV Gran % Lymph % (Auto) [place] % (Auto) Eos % (Auto) Baso % (Auto) Gran # Lymph # [place] # Eos # Baso # PT INR pCO2 42 pO2 29.0 L* HCO3 15.3 L ABG pH 7.17 L* ABG Total CO2 16.6 L ABG O2 Saturation 52.5 L ABG O2 Content ABG Base Excess -12.7 L ABG Hemoglobin ABG Carboxyhemoglobin POC ABG HHb (Measured) ABG Methemoglobin ABG O2 Capacity ABG Potassium 5.4 H VBG pH VBG pCO2 VBG HCO3 VBG Total CO2 VBG O2 Sat (Calc) VBG Base Excess VBG Potassium Hgb O2 Saturation Sodium 124.0 L Chloride 92.0 L Glucose 136 H Lactate 5.2 H* Mechanical Rate 20 FiO2 100.0 Tidal Volume 400 PEEP 10 Potassium Carbon Dioxide Anion Gap BUN Creatinine Est GFR ( Amer) Est GFR (Non-Af Amer) POC Glucose (mg/dL) Random Glucose Lactic Acid Calcium Phosphorus Magnesium Total Bilirubin AST ALT Alkaline Phosphatase Total Creatine Kinase CK-MB (CK-2) CK-MB (CK-2) % Troponin I Total Protein Albumin Globulin Albumin/Globulin Ratio Arterial Blood Potassium 5.4 H Venous Blood Potassium Urine Color Yellow Urine Appearance Sl cloudy Urine pH 6.0 Ur Specific [place] 1.020 Urine Protein 100 H Urine Glucose (UA) Negative Urine Ketones Negative Urine Blood Negative Urine Nitrate Negative Urine Bilirubin Negative Urine Urobilinogen 1.0 H Ur Leukocyte Esterase Negative Urine RBC 0 - 2 Urine WBC 0 - 2 Ur Epithelial Cells 1 - 3 Urine Bacteria Rare Hyaline Casts 0 - 2 Urine Other Usperm Urine Opiates Screen Positive H Urine Methadone Screen Negative Ur Barbiturates Screen Positive H Ur Phencyclidine Scrn Negative Ur Amphetamines Screen Negative U Benzodiazepines Scrn Positive H U Oth Cocaine Metabols Negative U Cannabinoids Screen Negative 03/12/17 03/12/17 03/12/17 05:30 05:30 08:05 WBC RBC Hgb Hct MCV MCH MCHC RDW Plt Count MPV Gran % Lymph % (Auto) [place] % (Auto) Eos % (Auto) Baso % (Auto) Gran # Lymph # [place] # Eos # Baso # PT INR pCO2 pO2 33 HCO3 ABG pH ABG Total CO2 ABG O2 Saturation ABG O2 Content ABG Base Excess ABG Hemoglobin ABG Carboxyhemoglobin POC ABG HHb (Measured) ABG Methemoglobin ABG O2 Capacity ABG Potassium VBG pH 7.08 L* VBG pCO2 61.0 H VBG HCO3 18.1 L VBG Total CO2 20.0 L VBG O2 Sat (Calc) 46.3 VBG Base Excess -12.5 L VBG Potassium 5.6 H Hgb O2 Saturation Sodium 124.0 L Chloride 93.0 L Glucose 137 H Lactate 5.5 H* Mechanical Rate FiO2 21.0 Tidal Volume PEEP Potassium Carbon Dioxide Anion Gap BUN Creatinine Est GFR ( Amer) Est GFR (Non-Af Amer) POC Glucose (mg/dL) 186 H Random Glucose Lactic Acid Calcium Phosphorus Magnesium Total Bilirubin AST ALT Alkaline Phosphatase Total Creatine Kinase 233 H CK-MB (CK-2) 2.5 CK-MB (CK-2) % Cancelled Troponin I 0.08 D Total Protein Albumin Globulin Albumin/Globulin Ratio Arterial Blood Potassium Venous Blood Potassium 5.6 H Urine Color Urine Appearance Urine pH Ur Specific [place] Urine Protein Urine Glucose (UA) Urine Ketones Urine Blood Urine Nitrate Urine Bilirubin Urine Urobilinogen Ur Leukocyte Esterase Urine RBC Urine WBC Ur Epithelial Cells Urine Bacteria Hyaline Casts Urine Other Urine Opiates Screen Urine Methadone Screen Ur Barbiturates Screen Ur Phencyclidine Scrn Ur Amphetamines Screen U Benzodiazepines Scrn U Oth Cocaine Metabols U Cannabinoids Screen 03/12/17 03/12/17 03/12/17 08:15 08:15 08:15 WBC 12.4 H RBC 3.57 Hgb 10.5 L Hct 29.7 L MCV 83.2 MCH 29.4 MCHC 35.4 RDW 13.0 Plt Count 194 MPV 8.9 Gran % 83.9 H Lymph % (Auto) 11.1 L [place] % (Auto) 4.8 Eos % (Auto) 0.1 L Baso % (Auto) 0.1 Gran # 10.40 H Lymph # 1.4 [place] # 0.6 Eos # 0.0 Baso # 0.01 PT 17.2 H INR 1.59 H pCO2 pO2 HCO3 ABG pH ABG Total CO2 ABG O2 Saturation ABG O2 Content ABG Base Excess ABG Hemoglobin ABG Carboxyhemoglobin POC ABG HHb (Measured) ABG Methemoglobin ABG O2 Capacity ABG Potassium VBG pH VBG pCO2 VBG HCO3 VBG Total CO2 VBG O2 Sat (Calc) VBG Base Excess VBG Potassium Hgb O2 Saturation Sodium 128 L Chloride 94 L Glucose Lactate Mechanical Rate FiO2 Tidal Volume PEEP Potassium 4.8 Carbon Dioxide 18 L Anion Gap 21 H BUN 37 H Creatinine 3.0 H Est GFR ( Amer) 28 Est GFR (Non-Af Amer) 24 POC Glucose (mg/dL) Random Glucose 118 H Lactic Acid Calcium 7.2 L Phosphorus 5.8 H Magnesium 1.5 L Total Bilirubin 2.2 H AST 743 H D ALT 502 H Alkaline Phosphatase 100 Total Creatine Kinase CK-MB (CK-2) CK-MB (CK-2) % Troponin I 0.10 D Total Protein 6.5 Albumin 3.2 Globulin 3.3 Albumin/Globulin Ratio 1.0 L Arterial Blood Potassium Venous Blood Potassium Urine Color Urine Appearance Urine pH Ur Specific [place] Urine Protein Urine Glucose (UA) Urine Ketones Urine Blood Urine Nitrate Urine Bilirubin Urine Urobilinogen Ur Leukocyte Esterase Urine RBC Urine WBC Ur Epithelial Cells Urine Bacteria Hyaline Casts Urine Other Urine Opiates Screen Urine Methadone Screen Ur Barbiturates Screen Ur Phencyclidine Scrn Ur Amphetamines Screen U Benzodiazepines Scrn U Oth Cocaine Metabols U Cannabinoids Screen 03/12/17 03/12/17 03/12/17 08:50 09:23 09:46 WBC RBC Hgb Hct MCV MCH MCHC RDW Plt Count MPV Gran % Lymph % (Auto) [place] % (Auto) Eos % (Auto) Baso % (Auto) Gran # Lymph # [place] # Eos # Baso # PT INR pCO2 49 H pO2 74.0 L 166 H HCO3 19.2 L ABG pH 7.20 L ABG Total CO2 20.7 L ABG O2 Saturation 94.8 L ABG O2 Content ABG Base Excess -8.9 L ABG Hemoglobin ABG Carboxyhemoglobin POC ABG HHb (Measured) ABG Methemoglobin ABG O2 Capacity ABG Potassium 4.5 VBG pH 7.18 L* VBG pCO2 53.0 VBG HCO3 19.8 L VBG Total CO2 21.4 L VBG O2 Sat (Calc) 99.3 H VBG Base Excess -8.9 L VBG Potassium 4.7 Hgb O2 Saturation Sodium 125.0 L 125.0 L Chloride 98.0 94.0 L Glucose 119 H 119 H Lactate 1.7 2.2 H Mechanical Rate 18 FiO2 100.0 21.0 Tidal Volume 440 PEEP 20 Potassium Carbon Dioxide Anion Gap BUN Creatinine Est GFR ( Amer) Est GFR (Non-Af Amer) POC Glucose (mg/dL) 110 Random Glucose Lactic Acid Calcium Phosphorus Magnesium Total Bilirubin AST ALT Alkaline Phosphatase Total Creatine Kinase CK-MB (CK-2) CK-MB (CK-2) % Troponin I Total Protein Albumin Globulin Albumin/Globulin Ratio Arterial Blood Potassium 4.5 Venous Blood Potassium 4.7 Urine Color Urine Appearance Urine pH Ur Specific [place] Urine Protein Urine Glucose (UA) Urine Ketones Urine Blood Urine Nitrate Urine Bilirubin Urine Urobilinogen Ur Leukocyte Esterase Urine RBC Urine WBC Ur Epithelial Cells Urine Bacteria Hyaline Casts Urine Other Urine Opiates Screen Urine Methadone Screen Ur Barbiturates Screen Ur Phencyclidine Scrn Ur Amphetamines Screen U Benzodiazepines Scrn U Oth Cocaine Metabols U Cannabinoids Screen 03/12/17 03/12/17 03/12/17 11:31 11:45 12:20 WBC RBC Hgb Hct MCV MCH MCHC RDW Plt Count MPV Gran % Lymph % (Auto) [place] % (Auto) Eos % (Auto) Baso % (Auto) Gran # Lymph # [place] # Eos # Baso # PT INR pCO2 45 pO2 57.0 L HCO3 19.3 L ABG pH 7.24 L ABG Total CO2 20.7 L ABG O2 Saturation 90.9 L ABG O2 Content 12.6 L ABG Base Excess -7.8 L ABG Hemoglobin 10.2 L ABG Carboxyhemoglobin 2.3 H POC ABG HHb (Measured) 8.8 H ABG Methemoglobin 1.0 ABG O2 Capacity 13.9 L ABG Potassium VBG pH VBG pCO2 VBG HCO3 VBG Total CO2 VBG O2 Sat (Calc) VBG Base Excess VBG Potassium Hgb O2 Saturation 87.9 L Sodium Chloride Glucose Lactate Mechanical Rate FiO2 100.0 Tidal Volume PEEP Potassium Carbon Dioxide Anion Gap BUN Creatinine Est GFR ( Amer) Est GFR (Non-Af Amer) POC Glucose (mg/dL) 205 H Random Glucose Lactic Acid Calcium Phosphorus Magnesium Total Bilirubin AST ALT Alkaline Phosphatase Total Creatine Kinase CK-MB (CK-2) CK-MB (CK-2) % Troponin I 0.13 H* D Total Protein Albumin Globulin Albumin/Globulin Ratio Arterial Blood Potassium Venous Blood Potassium Urine Color Urine Appearance Urine pH Ur Specific [place] Urine Protein Urine Glucose (UA) Urine Ketones Urine Blood Urine Nitrate Urine Bilirubin Urine Urobilinogen Ur Leukocyte Esterase Urine RBC Urine WBC Ur Epithelial Cells Urine Bacteria Hyaline Casts Urine Other Urine Opiates Screen Urine Methadone Screen Ur Barbiturates Screen Ur Phencyclidine Scrn Ur Amphetamines Screen U Benzodiazepines Scrn U Oth Cocaine Metabols U Cannabinoids Screen 03/12/17 Unknown WBC RBC Hgb Hct MCV MCH MCHC RDW Plt Count MPV Gran % Lymph % (Auto) [place] % (Auto) Eos % (Auto) Baso % (Auto) Gran # Lymph # [place] # Eos # Baso # PT INR pCO2 pO2 HCO3 ABG pH ABG Total CO2 ABG O2 Saturation ABG O2 Content ABG Base Excess ABG Hemoglobin ABG Carboxyhemoglobin POC ABG HHb (Measured) ABG Methemoglobin ABG O2 Capacity ABG Potassium VBG pH VBG pCO2 VBG HCO3 VBG Total CO2 VBG O2 Sat (Calc) VBG Base Excess VBG Potassium Hgb O2 Saturation Sodium Chloride Glucose Lactate Mechanical Rate FiO2 Tidal Volume PEEP Potassium Carbon Dioxide Anion Gap BUN Creatinine Est GFR ( Amer) Est GFR (Non-Af Amer) POC Glucose (mg/dL) Random Glucose Lactic Acid 2.1 Calcium Phosphorus Magnesium Total Bilirubin AST ALT Alkaline Phosphatase Total Creatine Kinase CK-MB (CK-2) CK-MB (CK-2) % Troponin I Total Protein Albumin Globulin Albumin/Globulin Ratio Arterial Blood Potassium Venous Blood Potassium Urine Color Urine Appearance Urine pH Ur Specific [place] Urine Protein Urine Glucose (UA) Urine Ketones Urine Blood Urine Nitrate Urine Bilirubin Urine Urobilinogen Ur Leukocyte Esterase Urine RBC Urine WBC Ur Epithelial Cells Urine Bacteria Hyaline Casts Urine Other Urine Opiates Screen Urine Methadone Screen Ur Barbiturates Screen Ur Phencyclidine Scrn Ur Amphetamines Screen U Benzodiazepines Scrn U Oth Cocaine Metabols U Cannabinoids Screen Attending/Attestation - Attestation I have personally seen and examined this patient.: Yes I have fully participated in the care of the patient.: Yes I have reviewed all pertinent clinical information: Yes
[2017-03-12] MEDS: NS 0.9% IV PRN ×2 (09:51→22:32)
[2017-03-12] MEDS: CISATRACURIUM BESYLATE IV PRN ×2 (09:51→22:32)
[2017-03-12] MEDS: Vancomycin 1gm in NS 250ml 1 GM/250 ML BAG IVPB SCH (09:54)
[2017-03-12] MEDS ORDERED: cefTRIAXone 1 gm 1 GM/100 ML BAG IVPB SCH (10:00)
[2017-03-12] MEDS ORDERED: Sodium Chloride 0.9% 1,000 ML IV STA (10:07)
[2017-03-12] MEDS ORDERED: Magnesium Sulfate 2 GM in Sodium Chloride 0.9% 100 ML IVPB ONE (10:08)
--- NOTE | 2017-03-12 11:38 | CP.CCUPN ---
<Jerman Kilgore - Last Filed: 03/12/17 14:30> CCU Subjective - Physician Review Subjective (Free Text): 03/12/17 11:27 Patient seen and examined at bedside in the ICU. Remains intubated and sedated , but appeared to be actively seizing, and was biting down on his ET tube. No additional cardiac arrests reported overnight, but patient experienced significant difficulties with oxygenation overnight, with sats persistently in the 40's-70's%. This AM, patient sats improved to low 90's with increased PEEP and TV, increased sedation (now on Proprofol, Fentanyl, and Versed), and paralysis with Nimbex. No signs of actively seizing at time of exam, EEG obtained to rule out status epilipticus. CCU Objective - Vital Signs / Intake & Output Vital Signs (Last 4 hours): Vital Signs Resp Pulse Ox 03/12/17 08:08 18 91 L Intake and Output (Last 8hrs): Intake & Output 03/11/17 03/12/17 03/12/17 22:59 06:59 14:59 Intake Total 50 Balance 50 Weight 122.47 kg Intake: IV 50 Other: Voiding Method Indwelling Catheter - Physical Exam Physical Exam Limitations: Positive for: Other (Intubated, sedated, & paralyzed) Head: Positive for: Atraumatic, Normocephalic. Negative for: Ecchymosis, Abrasion, Laceration Pupils: Positive for: Other (Equally dilated but not fixed; minorly reactive to light, L>R) Extroacular Muscles: Positive for: Other (unable to assess, not moving eyes spontaneously, no avoidance of direct light challenge for PERRL assessment) Conjunctiva: Negative for: Injected, Icteric Mouth: Positive for: Normal Teeth, Other (ETT in place with bite guard). Negative for: Drooling Nose (External): Positive for: Atraumatic. Negative for: Abrasion, Contusion, Laceration Neck: Positive for: Trachea Midline. Negative for: JVD, Lymphadenopathy Respiratory/Chest: Positive for: Other (ronchrous breath sounds in all [place]). Negative for: Clear to Auscultation, Good Air Exchange Cardiovascular: Positive for: Regular Rate and Rhythm, Normal S1, S2. Negative for: Murmurs, Irregular Rhythm, Tachycardic, Bradycardic Abdomen: Positive for: Distention (Abdomen mildly distended, but not firm/rigid) . Negative for: Normal Bowel Sounds (faint bowel sounds) Upper Extremity: Negative for: Cyanosis, Edema, Normal ROM, NORMAL PULSES ( faintly palpable radials +1), Swelling, Erythema, Deformity Lower Extremity: Negative for: Edema, NORMAL PULSES (unable to palpate bilateral dorsalis pedis or posterior tibials), Cyanosis, Swelling, Erythema, Deformity Neurological: Positive for: Other (sedated and paralyzed, intubated). Negative for: GCS=15 (pre-paralytic administration, GCS 3 (E1 V1t M1)), CN II-XII Intact , Speech Normal, Motor Func Grossly Intact Skin: Positive for: Warm, Normal Color, Diaphoretic Psychiatric: Positive for: Other (sedated and paralyzed, unable to assess). Negative for: Alert, Oriented x 3, Normal Insight, Normal Concentration, Normal Affect, Normal Mood - Medications Active Medications: Active Medications Generic Name Dose Route Start Last Admin Trade Name Freq PRN Reason Stop Dose Admin Hydrocortisone Sodium Succinate 100 mg 03/12/17 01:15 03/12/17 05:47 Solu-Cortef IVP 100 mg Q8 MARICHUY Administration Sodium Bicarbonate 150 meq/ 1,150 mls @ 100 mls/hr 03/11/17 23:30 03/12/17 00 :31 Sodium Chloride IV 100 mls/hr .[id number] MARICHUY Administration NOREPINEPHRINE BIT/0.9 % NACL 4 mg in 250 mls @ 22.5 mls/hr 03/11/17 23:55 03:40 Levophed 4 Mg/ 250 Ml Ns Premixed IV 10 mcg/min .[id number] PRN 37.5 mls/hr TITRATE PER MD ORDER Titration Protocol 6 MCG/MIN Epinephrine HCl 1 mg/ Sodium 51 mls @ 3.06 mls/hr 03/12/17 00:35 03/12/17 00: 54 Chloride IV 1 mcg/min .[id number] PRN 3.06 mls/hr TITRATE PER MD ORDER Administration Protocol 1 MCG/MIN Vasopressin 20 units/ Dextrose 101 mls @ 12.12 mls/hr 03/12/17 01:15 01:43 IV 12.12 mls/hr .[id number] MARICHUY Administration Protocol 0.04 U/MIN Ceftriaxone Sodium 1 gm in 100 mls @ 100 mls/hr 03/12/17 10:00 03/12/17 09:54 Rocephin 1 Gram Ivpb IVPB 100 mls/hr DAILY MARICHUY Administration Protocol Vancomycin HCl 1 gm in 250 mls @ 167 mls/hr 03/12/17 10:00 03/12/17 09:54 Vancomycin 1gm IVPB 167 mls/hr DAILY MARICHUY Administration Protocol Fentanyl Citrate 1,000 mcg in 100 mls @ 5 mls/hr 03/12/17 04:21 03/12/17 05: 45 Fentanyl Citrate/Sodium Chloride 1 Mg/100 Ml IV 50 mcg/hr .Q20H PRN 5 mls/hr TITRATE PER MD ORDER Administration Protocol 50 MCG/HR Midazolam 100 mg/100ml in NS 100 mg in 100 mls @ 1 mls/hr 03/12/17 04:20 11/21 05:42 Midazolam 100 Mg/100ml In Ns IV 1 mg/hr .Q24H PRN 1 mls/hr Agitation Administration Protocol 1 MG/HR Propofol 1,000 mg in 100 mls @ 3.674 mls/hr 03/12/17 07:41 03/12/17 07:45 Diprivan IV 15 mcg/kg/min .Q24H PRN 11.022 mls/hr TITRATE PER MD ORDER Administration Protocol 5 MCG/KG/MIN Cisatracurium Besylate 100 mg/ 260 mls @ 1.91 mls/hr 03/12/17 07:52 03/12/17 09:51 Sodium Chloride IV 0.1 mcg/kg/min .Q24H PRN 1.91 mls/hr TITRATE PER MD ORDER Administration Protocol 0.1 MCG/KG/MIN Pantoprazole Sodium 40 mg 03/12/17 10:00 03/12/17 09:53 Protonix Inj IVP 40 mg DAILY MARICHUY Administration - Patient Studies Lab Studies: Lab Studies 03/12/17 03/12/17 03/12/17 Range/Units Unknown 09:46 09:23 WBC (4.5-11.0) 10^3/ul RBC (3.5-6.1) 10^6/uL Hgb (14.0-18.0) g/dL Hct (42.0-52.0) % MCV (80.0-105.0) fl MCH (25.0-35.0) pg MCHC (31.0-37.0) g/dl RDW (11.5-14.5) % Plt Count (120.0-450.0) 10^3/uL MPV (7.0-11.0) fl Gran % (50.0-68.0) % Lymph % (Auto) (22.0-35.0) % [place] % (Auto) (1.0-6.0) % Eos % (Auto) (1.5-5.0) % Baso % (Auto) (0.0-3.0) % Gran # (1.4-6.5) Lymph # (1.2-3.4) [place] # (0.1-0.6) Eos # (0.0-0.7) Baso # (0.0-2.0) K/mm3 PT (9.9-11.8) Seconds INR (0.93-1.08) pCO2 (35-45) mm/Hg pO2 166 H (80-100) mm/Hg HCO3 (21-28) mmol/L ABG pH (7.35-7.45) ABG Total CO2 (22-28) mmol.L ABG O2 Saturation (95-98) % ABG Base Excess (-2.0-3.0) mmol/L ABG Potassium (3.6-5.2) mmol/L VBG pH 7.18 L* (7.32-7.43) VBG pCO2 53.0 (40-60) VBG HCO3 19.8 L (21-28) mmol/l VBG Total CO2 21.4 L (22-28) mmol.L VBG O2 Sat (Calc) 99.3 H (40-65) % VBG Base Excess -8.9 L (0.0-2.0) mmol/L VBG Potassium 4.7 (3.6-5.2) mmol/L Sodium 125.0 L (132-148) mmol/L Chloride 94.0 L (98-107) mmol/L Glucose 119 H (75-110) mg/dl Lactate 2.2 H (0.7-2.1) mmol/L Mechanical Rate FiO2 21.0 % Tidal Volume PEEP Potassium (3.6-5.0) mmol/L Carbon Dioxide (21-33) mmol/L Anion Gap (10-20) BUN (7-21) mg/dL Creatinine (0.8-1.5) mg/dL Est GFR ( Amer) Est GFR (Non-Af Amer) POC Glucose (mg/dL) 110 (65-110) mg/dL Random Glucose (70-110) mg/dL Lactic Acid 2.1 (0.7-2.1) mmol/L Calcium (8.4-10.5) mg/dL Phosphorus (2.5-4.5) mg/dL Magnesium (1.7-2.2) mg/dL Total Bilirubin (0.2-1.3) mg/dL AST (17-59) U/L ALT (7-56) U/L Alkaline Phosphatase (38-126) U/L Total Creatine Kinase (35-230) U/L CK-MB (CK-2) (0.0-3.6) ng/mL CK-MB (CK-2) % Troponin I ng/mL Total Protein (5.8-8.3) g/dL Albumin (3.0-4.8) g/dL Globulin gm/dL Albumin/Globulin Ratio (1.1-1.8) Arterial Blood Potassium (3.6-5.2) mmol/L Venous Blood Potassium 4.7 (3.6-5.2) mmol/L Urine Color (YELLOW) Urine Appearance (CLEAR) Urine pH (4.7-8.0) Ur Specific [place] (1.005-1.035) Urine Protein (<30 mg/dL) mg/dL Urine Glucose (UA) (NEGATIVE) mg/dL Urine Ketones (NEGATIVE) mg/dL Urine Blood (NEGATIVE) Urine Nitrate (NEGATIVE) Urine Bilirubin (NEGATIVE) Urine Urobilinogen (<1 E.U./dL) E.U./dL Ur Leukocyte Esterase (NEGATIVE) Marisela/uL Urine RBC (0-2) /hpf Urine WBC (0-6) /hpf Ur Epithelial Cells (0-5) /hpf Urine Bacteria (NEG) Hyaline Casts /hpf Urine Other Urine Opiates Screen (NEGATIVE) Urine Methadone Screen (NEGATIVE) Ur Barbiturates Screen (NEGATIVE) Ur Phencyclidine Scrn (NEGATIVE) Ur Amphetamines Screen (NEGATIVE) U Benzodiazepines Scrn (NEGATIVE) U Oth Cocaine Metabols (NEGATIVE) U Cannabinoids Screen (NEGATIVE) 03/12/17 03/12/17 03/12/17 Range/Units 08:50 08:15 08:15 WBC 12.4 H (4.5-11.0) 10^3/ul RBC 3.57 (3.5-6.1) 10^6/uL Hgb 10.5 L (14.0-18.0) g/dL Hct 29.7 L (42.0-52.0) % MCV 83.2 (80.0-105.0) fl MCH 29.4 (25.0-35.0) pg MCHC 35.4 (31.0-37.0) g/dl RDW 13.0 (11.5-14.5) % Plt Count 194 (120.0-450.0) 10^3/uL MPV 8.9 (7.0-11.0) fl Gran % 83.9 H (50.0-68.0) % Lymph % (Auto) 11.1 L (22.0-35.0) % [place] % (Auto) 4.8 (1.0-6.0) % Eos % (Auto) 0.1 L (1.5-5.0) % Baso % (Auto) 0.1 (0.0-3.0) % Gran # 10.40 H (1.4-6.5) Lymph # 1.4 (1.2-3.4) [place] # 0.6 (0.1-0.6) Eos # 0.0 (0.0-0.7) Baso # 0.01 (0.0-2.0) K/mm3 PT 17.2 H (9.9-11.8) Seconds INR 1.59 H (0.93-1.08) pCO2 49 H (35-45) mm/Hg pO2 74.0 L (80-100) mm/Hg HCO3 19.2 L (21-28) mmol/L ABG pH 7.20 L (7.35-7.45) ABG Total CO2 20.7 L (22-28) mmol.L ABG O2 Saturation 94.8 L (95-98) % ABG Base Excess -8.9 L (-2.0-3.0) mmol/L ABG Potassium 4.5 (3.6-5.2) mmol/L VBG pH (7.32-7.43) VBG pCO2 (40-60) VBG HCO3 (21-28) mmol/l VBG Total CO2 (22-28) mmol.L VBG O2 Sat (Calc) (40-65) % VBG Base Excess (0.0-2.0) mmol/L VBG Potassium (3.6-5.2) mmol/L Sodium 125.0 L (132-148) mmol/L Chloride 98.0 (98-107) mmol/L Glucose 119 H (75-110) mg/dl Lactate 1.7 (0.7-2.1) mmol/L Mechanical Rate 18 FiO2 100.0 % Tidal Volume 440 PEEP 20 Potassium (3.6-5.0) mmol/L Carbon Dioxide (21-33) mmol/L Anion Gap (10-20) BUN (7-21) mg/dL Creatinine (0.8-1.5) mg/dL Est GFR ( Amer) Est GFR (Non-Af Amer) POC Glucose (mg/dL) (65-110) mg/dL Random Glucose (70-110) mg/dL Lactic Acid (0.7-2.1) mmol/L Calcium (8.4-10.5) mg/dL Phosphorus (2.5-4.5) mg/dL Magnesium (1.7-2.2) mg/dL Total Bilirubin (0.2-1.3) mg/dL AST (17-59) U/L ALT (7-56) U/L Alkaline Phosphatase (38-126) U/L Total Creatine Kinase (35-230) U/L CK-MB (CK-2) (0.0-3.6) ng/mL CK-MB (CK-2) % Troponin I ng/mL Total Protein (5.8-8.3) g/dL Albumin (3.0-4.8) g/dL Globulin gm/dL Albumin/Globulin Ratio (1.1-1.8) Arterial Blood Potassium 4.5 (3.6-5.2) mmol/L Venous Blood Potassium (3.6-5.2) mmol/L Urine Color (YELLOW) Urine Appearance (CLEAR) Urine pH (4.7-8.0) Ur Specific [place] (1.005-1.035) Urine Protein (<30 mg/dL) mg/dL Urine Glucose (UA) (NEGATIVE) mg/dL Urine Ketones (NEGATIVE) mg/dL Urine Blood (NEGATIVE) Urine Nitrate (NEGATIVE) Urine Bilirubin (NEGATIVE) Urine Urobilinogen (<1 E.U./dL) E.U./dL Ur Leukocyte Esterase (NEGATIVE) Marisela/uL Urine RBC (0-2) /hpf Urine WBC (0-6) /hpf Ur Epithelial Cells (0-5) /hpf Urine Bacteria (NEG) Hyaline Casts /hpf Urine Other Urine Opiates Screen (NEGATIVE) Urine Methadone Screen (NEGATIVE) Ur Barbiturates Screen (NEGATIVE) Ur Phencyclidine Scrn (NEGATIVE) Ur Amphetamines Screen (NEGATIVE) U Benzodiazepines Scrn (NEGATIVE) U Oth Cocaine Metabols (NEGATIVE) U Cannabinoids Screen (NEGATIVE) 03/12/17 03/12/17 03/12/17 Range/Units 08:15 05:30 05:30 WBC (4.5-11.0) 10^3/ul RBC (3.5-6.1) 10^6/uL Hgb (14.0-18.0) g/dL Hct (42.0-52.0) % MCV (80.0-105.0) fl MCH (25.0-35.0) pg MCHC (31.0-37.0) g/dl RDW (11.5-14.5) % Plt Count (120.0-450.0) 10^3/uL MPV (7.0-11.0) fl Gran % (50.0-68.0) % Lymph % (Auto) (22.0-35.0) % [place] % (Auto) (1.0-6.0) % Eos % (Auto) (1.5-5.0) % Baso % (Auto) (0.0-3.0) % Gran # (1.4-6.5) Lymph # (1.2-3.4) [place] # (0.1-0.6) Eos # (0.0-0.7) Baso # (0.0-2.0) K/mm3 PT (9.9-11.8) Seconds INR (0.93-1.08) pCO2 (35-45) mm/Hg pO2 33 (80-100) mm/Hg HCO3 (21-28) mmol/L ABG pH (7.35-7.45) ABG Total CO2 (22-28) mmol.L ABG O2 Saturation (95-98) % ABG Base Excess (-2.0-3.0) mmol/L ABG Potassium (3.6-5.2) mmol/L VBG pH 7.08 L* (7.32-7.43) VBG pCO2 61.0 H (40-60) VBG HCO3 18.1 L (21-28) mmol/l VBG Total CO2 20.0 L (22-28) mmol.L VBG O2 Sat (Calc) 46.3 (40-65) % VBG Base Excess -12.5 L (0.0-2.0) mmol/L VBG Potassium 5.6 H (3.6-5.2) mmol/L Sodium 128 L 124.0 L (132-148) mmol/L Chloride 94 L 93.0 L (98-107) mmol/L Glucose 137 H (75-110) mg/dl Lactate 5.5 H* (0.7-2.1) mmol/L Mechanical Rate FiO2 21.0 % Tidal Volume PEEP Potassium 4.8 (3.6-5.0) mmol/L Carbon Dioxide 18 L (21-33) mmol/L Anion Gap 21 H (10-20) BUN 37 H (7-21) mg/dL Creatinine 3.0 H (0.8-1.5) mg/dL Est GFR ( Amer) 28 Est GFR (Non-Af Amer) 24 POC Glucose (mg/dL) (65-110) mg/dL Random Glucose 118 H (70-110) mg/dL Lactic Acid (0.7-2.1) mmol/L Calcium 7.2 L (8.4-10.5) mg/dL Phosphorus 5.8 H (2.5-4.5) mg/dL Magnesium 1.5 L (1.7-2.2) mg/dL Total Bilirubin 2.2 H (0.2-1.3) mg/dL AST 743 H D (17-59) U/L ALT 502 H (7-56) U/L Alkaline Phosphatase 100 (38-126) U/L Total Creatine Kinase 233 H (35-230) U/L CK-MB (CK-2) 2.5 (0.0-3.6) ng/mL CK-MB (CK-2) % Cancelled Troponin I 0.10 D 0.08 D ng/mL Total Protein 6.5 (5.8-8.3) g/dL Albumin 3.2 (3.0-4.8) g/dL Globulin 3.3 gm/dL Albumin/Globulin Ratio 1.0 L (1.1-1.8) Arterial Blood Potassium (3.6-5.2) mmol/L Venous Blood Potassium 5.6 H (3.6-5.2) mmol/L Urine Color (YELLOW) Urine Appearance (CLEAR) Urine pH (4.7-8.0) Ur Specific [place] (1.005-1.035) Urine Protein (<30 mg/dL) mg/dL Urine Glucose (UA) (NEGATIVE) mg/dL Urine Ketones (NEGATIVE) mg/dL Urine Blood (NEGATIVE) Urine Nitrate (NEGATIVE) Urine Bilirubin (NEGATIVE) Urine Urobilinogen (<1 E.U./dL) E.U./dL Ur Leukocyte Esterase (NEGATIVE) Marisela/uL Urine RBC (0-2) /hpf Urine WBC (0-6) /hpf Ur Epithelial Cells (0-5) /hpf Urine Bacteria (NEG) Hyaline Casts /hpf Urine Other Urine Opiates Screen (NEGATIVE) Urine Methadone Screen (NEGATIVE) Ur Barbiturates Screen (NEGATIVE) Ur Phencyclidine Scrn (NEGATIVE) Ur Amphetamines Screen (NEGATIVE) U Benzodiazepines Scrn (NEGATIVE) U Oth Cocaine Metabols (NEGATIVE) U Cannabinoids Screen (NEGATIVE) 03/12/17 03/12/17 03/12/17 Range/Units 05:24 00:55 00:55 WBC (4.5-11.0) 10^3/ul RBC (3.5-6.1) 10^6/uL Hgb (14.0-18.0) g/dL Hct (42.0-52.0) % MCV (80.0-105.0) fl MCH (25.0-35.0) pg MCHC (31.0-37.0) g/dl RDW (11.5-14.5) % Plt Count (120.0-450.0) 10^3/uL MPV (7.0-11.0) fl Gran % (50.0-68.0) % Lymph % (Auto) (22.0-35.0) % [place] % (Auto) (1.0-6.0) % Eos % (Auto) (1.5-5.0) % Baso % (Auto) (0.0-3.0) % Gran # (1.4-6.5) Lymph # (1.2-3.4) [place] # (0.1-0.6) Eos # (0.0-0.7) Baso # (0.0-2.0) K/mm3 PT (9.9-11.8) Seconds INR (0.93-1.08) pCO2 42 (35-45) mm/Hg pO2 29.0 L* (80-100) mm/Hg HCO3 15.3 L (21-28) mmol/L ABG pH 7.17 L* (7.35-7.45) ABG Total CO2 16.6 L (22-28) mmol.L ABG O2 Saturation 52.5 L (95-98) % ABG Base Excess -12.7 L (-2.0-3.0) mmol/L ABG Potassium 5.4 H (3.6-5.2) mmol/L VBG pH (7.32-7.43) VBG pCO2 (40-60) VBG HCO3 (21-28) mmol/l VBG Total CO2 (22-28) mmol.L VBG O2 Sat (Calc) (40-65) % VBG Base Excess (0.0-2.0) mmol/L VBG Potassium (3.6-5.2) mmol/L Sodium 124.0 L (132-148) mmol/L Chloride 92.0 L (98-107) mmol/L Glucose 136 H (75-110) mg/dl Lactate 5.2 H* (0.7-2.1) mmol/L Mechanical Rate 20 FiO2 100.0 % Tidal Volume 400 PEEP 10 Potassium (3.6-5.0) mmol/L Carbon Dioxide (21-33) mmol/L Anion Gap (10-20) BUN (7-21) mg/dL Creatinine (0.8-1.5) mg/dL Est GFR ( Amer) Est GFR (Non-Af Amer) POC Glucose (mg/dL) (65-110) mg/dL Random Glucose (70-110) mg/dL Lactic Acid (0.7-2.1) mmol/L Calcium (8.4-10.5) mg/dL Phosphorus (2.5-4.5) mg/dL Magnesium (1.7-2.2) mg/dL Total Bilirubin (0.2-1.3) mg/dL AST (17-59) U/L ALT (7-56) U/L Alkaline Phosphatase (38-126) U/L Total Creatine Kinase (35-230) U/L CK-MB (CK-2) (0.0-3.6) ng/mL CK-MB (CK-2) % Troponin I ng/mL Total Protein (5.8-8.3) g/dL Albumin (3.0-4.8) g/dL Globulin gm/dL Albumin/Globulin Ratio (1.1-1.8) Arterial Blood Potassium 5.4 H (3.6-5.2) mmol/L Venous Blood Potassium (3.6-5.2) mmol/L Urine Color Yellow (YELLOW) Urine Appearance Sl cloudy (CLEAR) Urine pH 6.0 (4.7-8.0) Ur Specific [place] 1.020 (1.005-1.035) Urine Protein 100 H (<30 mg/dL) mg/dL Urine Glucose (UA) Negative (NEGATIVE) mg/dL Urine Ketones Negative (NEGATIVE) mg/dL Urine Blood Negative (NEGATIVE) Urine Nitrate Negative (NEGATIVE) Urine Bilirubin Negative (NEGATIVE) Urine Urobilinogen 1.0 H (<1 E.U./dL) E.U./dL Ur Leukocyte Esterase Negative (NEGATIVE) Marisela/uL Urine RBC 0 - 2 (0-2) /hpf Urine WBC 0 - 2 (0-6) /hpf Ur Epithelial Cells 1 - 3 (0-5) /hpf Urine Bacteria Rare (NEG) Hyaline Casts 0 - 2 /hpf Urine Other Usperm Urine Opiates Screen Positive H (NEGATIVE) Urine Methadone Screen Negative (NEGATIVE) Ur Barbiturates Screen Positive H (NEGATIVE) Ur Phencyclidine Scrn Negative (NEGATIVE) Ur Amphetamines Screen Negative (NEGATIVE) U Benzodiazepines Scrn Positive H (NEGATIVE) U Oth Cocaine Metabols Negative (NEGATIVE) U Cannabinoids Screen Negative (NEGATIVE) Laboratory Results - last 24 hr 03/12/17 03/12/17 03/12/17 00:55 00:55 05:24 WBC RBC Hgb Hct MCV MCH MCHC RDW Plt Count MPV Gran % Lymph % (Auto) [place] % (Auto) Eos % (Auto) Baso % (Auto) Gran # Lymph # [place] # Eos # Baso # PT INR pCO2 42 pO2 29.0 L* HCO3 15.3 L ABG pH 7.17 L* ABG Total CO2 16.6 L ABG O2 Saturation 52.5 L ABG Base Excess -12.7 L ABG Potassium 5.4 H VBG pH VBG pCO2 VBG HCO3 VBG Total CO2 VBG O2 Sat (Calc) VBG Base Excess VBG Potassium Sodium 124.0 L Chloride 92.0 L Glucose 136 H Lactate 5.2 H* Mechanical Rate 20 FiO2 100.0 Tidal Volume 400 PEEP 10 Potassium Carbon Dioxide Anion Gap BUN Creatinine Est GFR ( Amer) Est GFR (Non-Af Amer) POC Glucose (mg/dL) Random Glucose Lactic Acid Calcium Phosphorus Magnesium Total Bilirubin AST ALT Alkaline Phosphatase Total Creatine Kinase CK-MB (CK-2) CK-MB (CK-2) % Troponin I Total Protein Albumin Globulin Albumin/Globulin Ratio Arterial Blood Potassium 5.4 H Venous Blood Potassium Urine Color Yellow Urine Appearance Sl cloudy Urine pH 6.0 Ur Specific [place] 1.020 Urine Protein 100 H Urine Glucose (UA) Negative Urine Ketones Negative Urine Blood Negative Urine Nitrate Negative Urine Bilirubin Negative Urine Urobilinogen 1.0 H Ur Leukocyte Esterase Negative Urine RBC 0 - 2 Urine WBC 0 - 2 Ur Epithelial Cells 1 - 3 Urine Bacteria Rare Hyaline Casts 0 - 2 Urine Other Usperm Urine Opiates Screen Positive H Urine Methadone Screen Negative Ur Barbiturates Screen Positive H Ur Phencyclidine Scrn Negative Ur Amphetamines Screen Negative U Benzodiazepines Scrn Positive H U Oth Cocaine Metabols Negative U Cannabinoids Screen Negative 03/12/17 03/12/17 03/12/17 05:30 05:30 08:15 WBC RBC Hgb Hct MCV MCH MCHC RDW Plt Count MPV Gran % Lymph % (Auto) [place] % (Auto) Eos % (Auto) Baso % (Auto) Gran # Lymph # [place] # Eos # Baso # PT INR pCO2 pO2 33 HCO3 ABG pH ABG Total CO2 ABG O2 Saturation ABG Base Excess ABG Potassium VBG pH 7.08 L* VBG pCO2 61.0 H VBG HCO3 18.1 L VBG Total CO2 20.0 L VBG O2 Sat (Calc) 46.3 VBG Base Excess -12.5 L VBG Potassium 5.6 H Sodium 124.0 L 128 L Chloride 93.0 L 94 L Glucose 137 H Lactate 5.5 H* Mechanical Rate FiO2 21.0 Tidal Volume PEEP Potassium 4.8 Carbon Dioxide 18 L Anion Gap 21 H BUN 37 H Creatinine 3.0 H Est GFR ( Amer) 28 Est GFR (Non-Af Amer) 24 POC Glucose (mg/dL) Random Glucose 118 H Lactic Acid Calcium 7.2 L Phosphorus 5.8 H Magnesium 1.5 L Total Bilirubin 2.2 H AST 743 H D ALT 502 H Alkaline Phosphatase 100 Total Creatine Kinase 233 H CK-MB (CK-2) 2.5 CK-MB (CK-2) % Cancelled Troponin I 0.08 D 0.10 D Total Protein 6.5 Albumin 3.2 Globulin 3.3 Albumin/Globulin Ratio 1.0 L Arterial Blood Potassium Venous Blood Potassium 5.6 H Urine Color Urine Appearance Urine pH Ur Specific [place] Urine Protein Urine Glucose (UA) Urine Ketones Urine Blood Urine Nitrate Urine Bilirubin Urine Urobilinogen Ur Leukocyte Esterase Urine RBC Urine WBC Ur Epithelial Cells Urine Bacteria Hyaline Casts Urine Other Urine Opiates Screen Urine Methadone Screen Ur Barbiturates Screen Ur Phencyclidine Scrn Ur Amphetamines Screen U Benzodiazepines Scrn U Oth Cocaine Metabols U Cannabinoids Screen 03/12/17 03/12/17 03/12/17 08:15 08:15 08:50 WBC 12.4 H RBC 3.57 Hgb 10.5 L Hct 29.7 L MCV 83.2 MCH 29.4 MCHC 35.4 RDW 13.0 Plt Count 194 MPV 8.9 Gran % 83.9 H Lymph % (Auto) 11.1 L [place] % (Auto) 4.8 Eos % (Auto) 0.1 L Baso % (Auto) 0.1 Gran # 10.40 H Lymph # 1.4 [place] # 0.6 Eos # 0.0 Baso # 0.01 PT 17.2 H INR 1.59 H pCO2 49 H pO2 74.0 L HCO3 19.2 L ABG pH 7.20 L ABG Total CO2 20.7 L ABG O2 Saturation 94.8 L ABG Base Excess -8.9 L ABG Potassium 4.5 VBG pH VBG pCO2 VBG HCO3 VBG Total CO2 VBG O2 Sat (Calc) VBG Base Excess VBG Potassium Sodium 125.0 L Chloride 98.0 Glucose 119 H Lactate 1.7 Mechanical Rate 18 FiO2 100.0 Tidal Volume 440 PEEP 20 Potassium Carbon Dioxide Anion Gap BUN Creatinine Est GFR ( Amer) Est GFR (Non-Af Amer) POC Glucose (mg/dL) Random Glucose Lactic Acid Calcium Phosphorus Magnesium Total Bilirubin AST ALT Alkaline Phosphatase Total Creatine Kinase CK-MB (CK-2) CK-MB (CK-2) % Troponin I Total Protein Albumin Globulin Albumin/Globulin Ratio Arterial Blood Potassium 4.5 Venous Blood Potassium Urine Color Urine Appearance Urine pH Ur Specific [place] Urine Protein Urine Glucose (UA) Urine Ketones Urine Blood Urine Nitrate Urine Bilirubin Urine Urobilinogen Ur Leukocyte Esterase Urine RBC Urine WBC Ur Epithelial Cells Urine Bacteria Hyaline Casts Urine Other Urine Opiates Screen Urine Methadone Screen Ur Barbiturates Screen Ur Phencyclidine Scrn Ur Amphetamines Screen U Benzodiazepines Scrn U Oth Cocaine Metabols U Cannabinoids Screen 03/12/17 03/12/17 03/12/17 09:23 09:46 Unknown WBC RBC Hgb Hct MCV MCH MCHC RDW Plt Count MPV Gran % Lymph % (Auto) [place] % (Auto) Eos % (Auto) Baso % (Auto) Gran # Lymph # [place] # Eos # Baso # PT INR pCO2 pO2 166 H HCO3 ABG pH ABG Total CO2 ABG O2 Saturation ABG Base Excess ABG Potassium VBG pH 7.18 L* VBG pCO2 53.0 VBG HCO3 19.8 L VBG Total CO2 21.4 L VBG O2 Sat (Calc) 99.3 H VBG Base Excess -8.9 L VBG Potassium 4.7 Sodium 125.0 L Chloride 94.0 L Glucose 119 H Lactate 2.2 H Mechanical Rate FiO2 21.0 Tidal Volume PEEP Potassium Carbon Dioxide Anion Gap BUN Creatinine Est GFR ( Amer) Est GFR (Non-Af Amer) POC Glucose (mg/dL) 110 Random Glucose Lactic Acid 2.1 Calcium Phosphorus Magnesium Total Bilirubin AST ALT Alkaline Phosphatase Total Creatine Kinase CK-MB (CK-2) CK-MB (CK-2) % Troponin I Total Protein Albumin Globulin Albumin/Globulin Ratio Arterial Blood Potassium Venous Blood Potassium 4.7 Urine Color Urine Appearance Urine pH Ur Specific [place] Urine Protein Urine Glucose (UA) Urine Ketones Urine Blood Urine Nitrate Urine Bilirubin Urine Urobilinogen Ur Leukocyte Esterase Urine RBC Urine WBC Ur Epithelial Cells Urine Bacteria Hyaline Casts Urine Other Urine Opiates Screen Urine Methadone Screen Ur Barbiturates Screen Ur Phencyclidine Scrn Ur Amphetamines Screen U Benzodiazepines Scrn U Oth Cocaine Metabols U Cannabinoids Screen Review of Systems - Review of Systems Systems not reviewed;Unavailable: Intubated Assessment/Plan - Assessment and Plan (Free Text) Assessment: This is a 36 yo P with past medical history of substance abuse, depression, bipolar disorder, hypertension, anxiety disorder that presented with cardiac arrest in the field (downtime unknown), s/p ROSC after Epi x5 (total for field and ED), Bicarb, and Narcan, s/p repeat Arrest and ROSC in the ED, believed to be 2/2 multi-drug overdose and alcohol use. He is currently intubated, sedated , and paralyzed on Nimbex, and appeared to be actively seizing vs positioning this AM. He likely has significant anoxic injury, and prognosis is poor. Plan: Neuro: -sedated with Propofol/Versed/Fentanyl, and paralyzed with Nimbex -likely anoxic injury 2/2 cardiac arrest in field with unknown down time -Maintain temp ~94-96F -Neurochecks q2h -Urine toxicology positive for opiates, barbiturates and benzos -CT Head negative for acute process, MRI pending (when sufficiently stable) as per Neuro -Seizure precautions -Given AM likely seizure with biting down on ET tube, started on Keppra 1000mg IV q12 -Neurology consulted - Dr. Rene, appreciate all recs -Poison control following Pulm: -Desatting overnight 40's-70%; improved to 92-100% this AM with manipulation of vent, increased sedation, and paralysis with Nimbex -CXR this AM show opacification of both lungs, ETT tip visualized; repeat CXR this afternoon appears to have improvement in R lung base area, but still diffuse infiltrate in R lung and L lung opacified -ABG this AM after improved SaO2 pH 7.20, pco2 49, po2 74, hco3 19.2; repeat ABG this afternoon improved to 7.24/45/57/19.3 -Currently on PRVC 440/22/20/100%, continue to monitor Cardio: -Currently on pressor support with Levophed, weaned off Vasopressin and Epi; maintain MAP > 65 -Placed on transcutaneous pacing on arrival due to halina afib in the low 50's, now resolved, RRR in high 60's - low 70's, not actively being paced -Troponins increased from <0.01 to 0.08 to 0.10, now 0.13 -repeat EKG pending, will f/u -Cardiology consulted - Dr. Anderson -Echo ordered, f/u GI: -NPO -NGT placed -GI prophylaxis with protonix -LFTs increased; AST from 303 to 743, ALT from 220 to 502, Alk phos 108 to 100, TBili from 1.2 to 2.2 -As per Poison control, Acetadote started due to worsening LFTs Renal: -kayexelate x2 overnight for elevated K at 7.3; 4.8 this AM -Cr increased to 3.0 from 2.5 -Bicarbonate drip @ 150cc/hr on admit, now held, will administer Bicarb as single doses as needed -Will continue to monitor and treat electrolyte abnormalities as indicated -Monitor I's and O's; poor urine output (~175cc) since arrival Endo: -Fingersticks q2h, last check 205 -Maintain euglycemia between 140-180's -Stress dose steroids with solu-cortef 100mg q8h ID: -Blood and urine cultures drawn, pending results -Patient empirically treated with rocephin and vancomycin Heme: -Hgb 12.4 from 13.9, more likely dilutional than from bleed -SCDs for DVT ppx Dispo: ICU, intubated/sedated/paralyzed, pending repeat EKG and Echo, pending repeat ABGs for assessment of oxygenation status FEN: NPO Access: Peripheral IVs, R-femoral TLC Consults: Neuro, Cardio, Poison Control Ppx: Protonix covers for GI, SCDs for DVT Patient seen, examined, and reviewed with attending, Dr. Bush. <Rachelle JONES,Renettachristine H - Last Filed: 03/12/17 14:39> CCU Objective - Vital Signs / Intake & Output Intake and Output (Last 8hrs): Intake & Output 03/11/17 03/12/17 03/12/17 22:59 06:59 14:59 Intake Total 50 Balance 50 Weight 270 lb 240 lb Intake: IV 50 Other: Voiding Method Indwelling Catheter - Medications Active Medications: Active Medications Generic Name Dose Route Start Last Admin Trade Name Freq PRN Reason Stop Dose Admin Hydrocortisone Sodium Succinate 100 mg 03/12/17 01:15 03/12/17 05:47 Solu-Cortef IVP 100 mg Q8 MARICHUY Administration NOREPINEPHRINE BIT/0.9 % NACL 4 mg in 250 mls @ 22.5 mls/hr 03/11/17 23:55 03:40 Levophed 4 Mg/ 250 Ml Ns Premixed IV 10 mcg/min .[id number] PRN 37.5 mls/hr TITRATE PER MD ORDER Titration Protocol 6 MCG/MIN Epinephrine HCl 1 mg/ Sodium 51 mls @ 3.06 mls/hr 03/12/17 00:35 03/12/17 00: 54 Chloride IV 1 mcg/min .[id number] PRN 3.06 mls/hr TITRATE PER MD ORDER Administration Protocol 1 MCG/MIN Vancomycin HCl 1 gm in 250 mls @ 167 mls/hr 03/12/17 10:00 03/12/17 09:54 Vancomycin 1gm IVPB 167 mls/hr DAILY MARICHUY Administration Protocol Fentanyl Citrate 1,000 mcg in 100 mls @ 5 mls/hr 03/12/17 04:21 03/12/17 05: 45 Fentanyl Citrate/Sodium Chloride 1 Mg/100 Ml IV 50 mcg/hr .Q20H PRN 5 mls/hr TITRATE PER MD ORDER Administration Protocol 50 MCG/HR Midazolam 100 mg/100ml in NS 100 mg in 100 mls @ 1 mls/hr 03/12/17 04:20 11/21 05:42 Midazolam 100 Mg/100ml In Ns IV 1 mg/hr .Q24H PRN 1 mls/hr Agitation Administration Protocol 1 MG/HR Propofol 1,000 mg in 100 mls @ 3.674 mls/hr 03/12/17 07:41 03/12/17 07:45 Diprivan IV 15 mcg/kg/min .Q24H PRN 11.022 mls/hr TITRATE PER MD ORDER Administration Protocol 5 MCG/KG/MIN Cisatracurium Besylate 100 mg/ 260 mls @ 1.91 mls/hr 03/12/17 07:52 03/12/17 09:51 Sodium Chloride IV 0.1 mcg/kg/min .Q24H PRN 1.91 mls/hr TITRATE PER MD ORDER Administration Protocol 0.1 MCG/KG/MIN Levetiracetam 1,000 mg/ Sodium 110 mls @ 460 mls/hr 03/12/17 22:00 Chloride IV Q12 [facility] Acetylcysteine 5,450 mg/ 527.25 mls @ 125 mls/hr 03/12/17 15:00 Dextrose IV 03/12/17 19:13 .[id number] ONE Acetylcysteine 10,900 mg/ 1,054.5 mls @ 62.5 mls/hr 03/12/17 19:00 Dextrose IV 03/13/17 11:52 .[id number] ONE Acetylcysteine 16,350 mg/ 281.75 mls @ 331.75 mls/hr 03/12/17 14:00 Dextrose IV 03/12/17 14:50 .Q51M ONE Piperacillin Sod/Tazobactam Sod 2.25 gm in 100 mls @ 100 mls/hr 03/12/17 14: 00 Zosyn 2.25 Gm In 0.9% 100 Ml IVPB 03/12/17 22:59 Q8 [facility] Protocol Pantoprazole Sodium 40 mg 03/12/17 10:00 03/12/17 09:53 Protonix Inj IVP 40 mg DAILY [facility] Administration - Patient Studies Lab Studies: Lab Studies 03/12/17 03/12/17 03/12/17 Range/Units Unknown 13:48 12:20 WBC (4.5-11.0) 10^3/ul RBC (3.5-6.1) 10^6/uL Hgb (14.0-18.0) g/dL Hct (42.0-52.0) % MCV (80.0-105.0) fl MCH (25.0-35.0) pg MCHC (31.0-37.0) g/dl RDW (11.5-14.5) % Plt Count (120.0-450.0) 10^3/uL MPV (7.0-11.0) fl Gran % (50.0-68.0) % Lymph % (Auto) (22.0-35.0) % [place] % (Auto) (1.0-6.0) % Eos % (Auto) (1.5-5.0) % Baso % (Auto) (0.0-3.0) % Gran # (1.4-6.5) Lymph # (1.2-3.4) [place] # (0.1-0.6) Eos # (0.0-0.7) Baso # (0.0-2.0) K/mm3 PT (9.9-11.8) Seconds INR (0.93-1.08) pCO2 (35-45) mm/Hg pO2 (80-100) mm/Hg HCO3 (21-28) mmol/L ABG pH (7.35-7.45) ABG Total CO2 (22-28) mmol.L ABG O2 Saturation (95-98) % ABG O2 Content (15-23) ML/dl ABG Base Excess (-2.0-3.0) mmol/L ABG Hemoglobin (11.7-17.4) g/dL ABG Carboxyhemoglobin (0.5-1.5) % POC ABG HHb (Measured) (0-5) % ABG Methemoglobin (0.0-3.0) % ABG O2 Capacity (16-24) mL/dl ABG Potassium (3.6-5.2) mmol/L VBG pH (7.32-7.43) VBG pCO2 (40-60) VBG HCO3 (21-28) mmol/l VBG Total CO2 (22-28) mmol.L VBG O2 Sat (Calc) (40-65) % VBG Base Excess (0.0-2.0) mmol/L VBG Potassium (3.6-5.2) mmol/L Hgb O2 Saturation (95.0-98.0) % Sodium (132-148) mmol/L Chloride (98-107) mmol/L Glucose (75-110) mg/dl Lactate (0.7-2.1) mmol/L Mechanical Rate FiO2 % Tidal Volume PEEP Potassium (3.6-5.0) mmol/L Carbon Dioxide (21-33) mmol/L Anion Gap (10-20) BUN (7-21) mg/dL Creatinine (0.8-1.5) mg/dL Est GFR ( Amer) Est GFR (Non-Af Amer) POC Glucose (mg/dL) 120 H (65-110) mg/dL Random Glucose (70-110) mg/dL Lactic Acid 2.1 (0.7-2.1) mmol/L Calcium (8.4-10.5) mg/dL Phosphorus (2.5-4.5) mg/dL Magnesium (1.7-2.2) mg/dL Total Bilirubin (0.2-1.3) mg/dL AST (17-59) U/L ALT (7-56) U/L Alkaline Phosphatase (38-126) U/L Total Creatine Kinase (35-230) U/L CK-MB (CK-2) (0.0-3.6) ng/mL CK-MB (CK-2) % Troponin I 0.13 H* D ng/mL Total Protein (5.8-8.3) g/dL Albumin (3.0-4.8) g/dL Globulin gm/dL Albumin/Globulin Ratio (1.1-1.8) Arterial Blood Potassium (3.6-5.2) mmol/L Venous Blood Potassium (3.6-5.2) mmol/L Urine Color (YELLOW) Urine Appearance (CLEAR) Urine pH (4.7-8.0) Ur Specific [place] (1.005-1.035) Urine Protein (<30 mg/dL) mg/dL Urine Glucose (UA) (NEGATIVE) mg/dL Urine Ketones (NEGATIVE) mg/dL Urine Blood (NEGATIVE) Urine Nitrate (NEGATIVE) Urine Bilirubin (NEGATIVE) Urine Urobilinogen (<1 E.U./dL) E.U./dL Ur Leukocyte Esterase (NEGATIVE) Marisela/uL Urine RBC (0-2) /hpf Urine WBC (0-6) /hpf Ur Epithelial Cells (0-5) /hpf Urine Bacteria (NEG) Hyaline Casts /hpf Urine Other Urine Opiates Screen (NEGATIVE) Urine Methadone Screen (NEGATIVE) Ur Barbiturates Screen (NEGATIVE) Ur Phencyclidine Scrn (NEGATIVE) Ur Amphetamines Screen (NEGATIVE) U Benzodiazepines Scrn (NEGATIVE) U Oth Cocaine Metabols (NEGATIVE) U Cannabinoids Screen (NEGATIVE) 03/12/17 03/12/17 03/12/17 Range/Units 11:45 11:31 09:46 WBC (4.5-11.0) 10^3/ul RBC (3.5-6.1) 10^6/uL Hgb (14.0-18.0) g/dL Hct (42.0-52.0) % MCV (80.0-105.0) fl MCH (25.0-35.0) pg MCHC (31.0-37.0) g/dl RDW (11.5-14.5) % Plt Count (120.0-450.0) 10^3/uL MPV (7.0-11.0) fl Gran % (50.0-68.0) % Lymph % (Auto) (22.0-35.0) % [place] % (Auto) (1.0-6.0) % Eos % (Auto) (1.5-5.0) % Baso % (Auto) (0.0-3.0) % Gran # (1.4-6.5) Lymph # (1.2-3.4) [place] # (0.1-0.6) Eos # (0.0-0.7) Baso # (0.0-2.0) K/mm3 PT (9.9-11.8) Seconds INR (0.93-1.08) pCO2 45 (35-45) mm/Hg pO2 57.0 L (80-100) mm/Hg HCO3 19.3 L (21-28) mmol/L ABG pH 7.24 L (7.35-7.45) ABG Total CO2 20.7 L (22-28) mmol.L ABG O2 Saturation 90.9 L (95-98) % ABG O2 Content 12.6 L (15-23) ML/dl ABG Base Excess -7.8 L (-2.0-3.0) mmol/L ABG Hemoglobin 10.2 L (11.7-17.4) g/dL ABG Carboxyhemoglobin 2.3 H (0.5-1.5) % POC ABG HHb (Measured) 8.8 H (0-5) % ABG Methemoglobin 1.0 (0.0-3.0) % ABG O2 Capacity 13.9 L (16-24) mL/dl ABG Potassium (3.6-5.2) mmol/L VBG pH (7.32-7.43) VBG pCO2 (40-60) VBG HCO3 (21-28) mmol/l VBG Total CO2 (22-28) mmol.L VBG O2 Sat (Calc) (40-65) % VBG Base Excess (0.0-2.0) mmol/L VBG Potassium (3.6-5.2) mmol/L Hgb O2 Saturation 87.9 L (95.0-98.0) % Sodium (132-148) mmol/L Chloride (98-107) mmol/L Glucose (75-110) mg/dl Lactate (0.7-2.1) mmol/L Mechanical Rate FiO2 100.0 % Tidal Volume PEEP Potassium (3.6-5.0) mmol/L Carbon Dioxide (21-33) mmol/L Anion Gap (10-20) BUN (7-21) mg/dL Creatinine (0.8-1.5) mg/dL Est GFR ( Amer) Est GFR (Non-Af Amer) POC Glucose (mg/dL) 205 H 110 (65-110) mg/dL Random Glucose (70-110) mg/dL Lactic Acid (0.7-2.1) mmol/L Calcium (8.4-10.5) mg/dL Phosphorus (2.5-4.5) mg/dL Magnesium (1.7-2.2) mg/dL Total Bilirubin (0.2-1.3) mg/dL AST (17-59) U/L ALT (7-56) U/L Alkaline Phosphatase (38-126) U/L Total Creatine Kinase (35-230) U/L CK-MB (CK-2) (0.0-3.6) ng/mL CK-MB (CK-2) % Troponin I ng/mL Total Protein (5.8-8.3) g/dL Albumin (3.0-4.8) g/dL Globulin gm/dL Albumin/Globulin Ratio (1.1-1.8) Arterial Blood Potassium (3.6-5.2) mmol/L Venous Blood Potassium (3.6-5.2) mmol/L Urine Color (YELLOW) Urine Appearance (CLEAR) Urine pH (4.7-8.0) Ur Specific [place] (1.005-1.035) Urine Protein (<30 mg/dL) mg/dL Urine Glucose (UA) (NEGATIVE) mg/dL Urine Ketones (NEGATIVE) mg/dL Urine Blood (NEGATIVE) Urine Nitrate (NEGATIVE) Urine Bilirubin (NEGATIVE) Urine Urobilinogen (<1 E.U./dL) E.U./dL Ur Leukocyte Esterase (NEGATIVE) Marisela/uL Urine RBC (0-2) /hpf Urine WBC (0-6) /hpf Ur Epithelial Cells (0-5) /hpf Urine Bacteria (NEG) Hyaline Casts /hpf Urine Other Urine Opiates Screen (NEGATIVE) Urine Methadone Screen (NEGATIVE) Ur Barbiturates Screen (NEGATIVE) Ur Phencyclidine Scrn (NEGATIVE) Ur Amphetamines Screen (NEGATIVE) U Benzodiazepines Scrn (NEGATIVE) U Oth Cocaine Metabols (NEGATIVE) U Cannabinoids Screen (NEGATIVE) 03/12/17 03/12/17 03/12/17 Range/Units 09:23 08:50 08:15 WBC (4.5-11.0) 10^3/ul RBC (3.5-6.1) 10^6/uL Hgb (14.0-18.0) g/dL Hct (42.0-52.0) % MCV (80.0-105.0) fl MCH (25.0-35.0) pg MCHC (31.0-37.0) g/dl RDW (11.5-14.5) % Plt Count (120.0-450.0) 10^3/uL MPV (7.0-11.0) fl Gran % (50.0-68.0) % Lymph % (Auto) (22.0-35.0) % [place] % (Auto) (1.0-6.0) % Eos % (Auto) (1.5-5.0) % Baso % (Auto) (0.0-3.0) % Gran # (1.4-6.5) Lymph # (1.2-3.4) [place] # (0.1-0.6) Eos # (0.0-0.7) Baso # (0.0-2.0) K/mm3 PT 17.2 H (9.9-11.8) Seconds INR 1.59 H (0.93-1.08) pCO2 49 H (35-45) mm/Hg pO2 166 H 74.0 L (80-100) mm/Hg HCO3 19.2 L (21-28) mmol/L ABG pH 7.20 L (7.35-7.45) ABG Total CO2 20.7 L (22-28) mmol.L ABG O2 Saturation 94.8 L (95-98) % ABG O2 Content (15-23) ML/dl ABG Base Excess -8.9 L (-2.0-3.0) mmol/L ABG Hemoglobin (11.7-17.4) g/dL ABG Carboxyhemoglobin (0.5-1.5) % POC ABG HHb (Measured) (0-5) % ABG Methemoglobin (0.0-3.0) % ABG O2 Capacity (16-24) mL/dl ABG Potassium 4.5 (3.6-5.2) mmol/L VBG pH 7.18 L* (7.32-7.43) VBG pCO2 53.0 (40-60) VBG HCO3 19.8 L (21-28) mmol/l VBG Total CO2 21.4 L (22-28) mmol.L VBG O2 Sat (Calc) 99.3 H (40-65) % VBG Base Excess -8.9 L (0.0-2.0) mmol/L VBG Potassium 4.7 (3.6-5.2) mmol/L Hgb O2 Saturation (95.0-98.0) % Sodium 125.0 L 125.0 L (132-148) mmol/L Chloride 94.0 L 98.0 (98-107) mmol/L Glucose 119 H 119 H (75-110) mg/dl Lactate 2.2 H 1.7 (0.7-2.1) mmol/L Mechanical Rate 18 FiO2 21.0 100.0 % Tidal Volume 440 PEEP 20 Potassium (3.6-5.0) mmol/L Carbon Dioxide (21-33) mmol/L Anion Gap (10-20) BUN (7-21) mg/dL Creatinine (0.8-1.5) mg/dL Est GFR ( Amer) Est GFR (Non-Af Amer) POC Glucose (mg/dL) (65-110) mg/dL Random Glucose (70-110) mg/dL Lactic Acid (0.7-2.1) mmol/L Calcium (8.4-10.5) mg/dL Phosphorus (2.5-4.5) mg/dL Magnesium (1.7-2.2) mg/dL Total Bilirubin (0.2-1.3) mg/dL AST (17-59) U/L ALT (7-56) U/L Alkaline Phosphatase (38-126) U/L Total Creatine Kinase (35-230) U/L CK-MB (CK-2) (0.0-3.6) ng/mL CK-MB (CK-2) % Troponin I ng/mL Total Protein (5.8-8.3) g/dL Albumin (3.0-4.8) g/dL Globulin gm/dL Albumin/Globulin Ratio (1.1-1.8) Arterial Blood Potassium 4.5 (3.6-5.2) mmol/L Venous Blood Potassium 4.7 (3.6-5.2) mmol/L Urine Color (YELLOW) Urine Appearance (CLEAR) Urine pH (4.7-8.0) Ur Specific [place] (1.005-1.035) Urine Protein (<30 mg/dL) mg/dL Urine Glucose (UA) (NEGATIVE) mg/dL Urine Ketones (NEGATIVE) mg/dL Urine Blood (NEGATIVE) Urine Nitrate (NEGATIVE) Urine Bilirubin (NEGATIVE) Urine Urobilinogen (<1 E.U./dL) E.U./dL Ur Leukocyte Esterase (NEGATIVE) Marisela/uL Urine RBC (0-2) /hpf Urine WBC (0-6) /hpf Ur Epithelial Cells (0-5) /hpf Urine Bacteria (NEG) Hyaline Casts /hpf Urine Other Urine Opiates Screen (NEGATIVE) Urine Methadone Screen (NEGATIVE) Ur Barbiturates Screen (NEGATIVE) Ur Phencyclidine Scrn (NEGATIVE) Ur Amphetamines Screen (NEGATIVE) U Benzodiazepines Scrn (NEGATIVE) U Oth Cocaine Metabols (NEGATIVE) U Cannabinoids Screen (NEGATIVE) 03/12/17 03/12/17 03/12/17 Range/Units 08:15 08:15 08:05 WBC 12.4 H (4.5-11.0) 10^3/ul RBC 3.57 (3.5-6.1) 10^6/uL Hgb 10.5 L (14.0-18.0) g/dL Hct 29.7 L (42.0-52.0) % MCV 83.2 (80.0-105.0) fl MCH 29.4 (25.0-35.0) pg MCHC 35.4 (31.0-37.0) g/dl RDW 13.0 (11.5-14.5) % Plt Count 194 (120.0-450.0) 10^3/uL MPV 8.9 (7.0-11.0) fl Gran % 83.9 H (50.0-68.0) % Lymph % (Auto) 11.1 L (22.0-35.0) % [place] % (Auto) 4.8 (1.0-6.0) % Eos % (Auto) 0.1 L (1.5-5.0) % Baso % (Auto) 0.1 (0.0-3.0) % Gran # 10.40 H (1.4-6.5) Lymph # 1.4 (1.2-3.4) [place] # 0.6 (0.1-0.6) Eos # 0.0 (0.0-0.7) Baso # 0.01 (0.0-2.0) K/mm3 PT (9.9-11.8) Seconds INR (0.93-1.08) pCO2 (35-45) mm/Hg pO2 (80-100) mm/Hg HCO3 (21-28) mmol/L ABG pH (7.35-7.45) ABG Total CO2 (22-28) mmol.L ABG O2 Saturation (95-98) % ABG O2 Content (15-23) ML/dl ABG Base Excess (-2.0-3.0) mmol/L ABG Hemoglobin (11.7-17.4) g/dL ABG Carboxyhemoglobin (0.5-1.5) % POC ABG HHb (Measured) (0-5) % ABG Methemoglobin (0.0-3.0) % ABG O2 Capacity (16-24) mL/dl ABG Potassium (3.6-5.2) mmol/L VBG pH (7.32-7.43) VBG pCO2 (40-60) VBG HCO3 (21-28) mmol/l VBG Total CO2 (22-28) mmol.L VBG O2 Sat (Calc) (40-65) % VBG Base Excess (0.0-2.0) mmol/L VBG Potassium (3.6-5.2) mmol/L Hgb O2 Saturation (95.0-98.0) % Sodium 128 L (132-148) mmol/L Chloride 94 L (98-107) mmol/L Glucose (75-110) mg/dl Lactate (0.7-2.1) mmol/L Mechanical Rate FiO2 % Tidal Volume PEEP Potassium 4.8 (3.6-5.0) mmol/L Carbon Dioxide 18 L (21-33) mmol/L Anion Gap 21 H (10-20) BUN 37 H (7-21) mg/dL Creatinine 3.0 H (0.8-1.5) mg/dL Est GFR ( Amer) 28 Est GFR (Non-Af Amer) 24 POC Glucose (mg/dL) 186 H (65-110) mg/dL Random Glucose 118 H (70-110) mg/dL Lactic Acid (0.7-2.1) mmol/L Calcium 7.2 L (8.4-10.5) mg/dL Phosphorus 5.8 H (2.5-4.5) mg/dL Magnesium 1.5 L (1.7-2.2) mg/dL Total Bilirubin 2.2 H (0.2-1.3) mg/dL AST 743 H D (17-59) U/L ALT 502 H (7-56) U/L Alkaline Phosphatase 100 (38-126) U/L Total Creatine Kinase (35-230) U/L CK-MB (CK-2) (0.0-3.6) ng/mL CK-MB (CK-2) % Troponin I 0.10 D ng/mL Total Protein 6.5 (5.8-8.3) g/dL Albumin 3.2 (3.0-4.8) g/dL Globulin 3.3 gm/dL Albumin/Globulin Ratio 1.0 L (1.1-1.8) Arterial Blood Potassium (3.6-5.2) mmol/L Venous Blood Potassium (3.6-5.2) mmol/L Urine Color (YELLOW) Urine Appearance (CLEAR) Urine pH (4.7-8.0) Ur Specific [place] (1.005-1.035) Urine Protein (<30 mg/dL) mg/dL Urine Glucose (UA) (NEGATIVE) mg/dL Urine Ketones (NEGATIVE) mg/dL Urine Blood (NEGATIVE) Urine Nitrate (NEGATIVE) Urine Bilirubin (NEGATIVE) Urine Urobilinogen (<1 E.U./dL) E.U./dL Ur Leukocyte Esterase (NEGATIVE) Marisela/uL Urine RBC (0-2) /hpf Urine WBC (0-6) /hpf Ur Epithelial Cells (0-5) /hpf Urine Bacteria (NEG) Hyaline Casts /hpf Urine Other Urine Opiates Screen (NEGATIVE) Urine Methadone Screen (NEGATIVE) Ur Barbiturates Screen (NEGATIVE) Ur Phencyclidine Scrn (NEGATIVE) Ur Amphetamines Screen (NEGATIVE) U Benzodiazepines Scrn (NEGATIVE) U Oth Cocaine Metabols (NEGATIVE) U Cannabinoids Screen (NEGATIVE) 03/12/17 03/12/17 03/12/17 Range/Units 05:30 05:30 05:24 WBC (4.5-11.0) 10^3/ul RBC (3.5-6.1) 10^6/uL Hgb (14.0-18.0) g/dL Hct (42.0-52.0) % MCV (80.0-105.0) fl MCH (25.0-35.0) pg MCHC (31.0-37.0) g/dl RDW (11.5-14.5) % Plt Count (120.0-450.0) 10^3/uL MPV (7.0-11.0) fl Gran % (50.0-68.0) % Lymph % (Auto) (22.0-35.0) % [place] % (Auto) (1.0-6.0) % Eos % (Auto) (1.5-5.0) % Baso % (Auto) (0.0-3.0) % Gran # (1.4-6.5) Lymph # (1.2-3.4) [place] # (0.1-0.6) Eos # (0.0-0.7) Baso # (0.0-2.0) K/mm3 PT (9.9-11.8) Seconds INR (0.93-1.08) pCO2 42 (35-45) mm/Hg pO2 33 29.0 L* (80-100) mm/Hg HCO3 15.3 L (21-28) mmol/L ABG pH 7.17 L* (7.35-7.45) ABG Total CO2 16.6 L (22-28) mmol.L ABG O2 Saturation 52.5 L (95-98) % ABG O2 Content (15-23) ML/dl ABG Base Excess -12.7 L (-2.0-3.0) mmol/L ABG Hemoglobin (11.7-17.4) g/dL ABG Carboxyhemoglobin (0.5-1.5) % POC ABG HHb (Measured) (0-5) % ABG Methemoglobin (0.0-3.0) % ABG O2 Capacity (16-24) mL/dl ABG Potassium 5.4 H (3.6-5.2) mmol/L VBG pH 7.08 L* (7.32-7.43) VBG pCO2 61.0 H (40-60) VBG HCO3 18.1 L (21-28) mmol/l VBG Total CO2 20.0 L (22-28) mmol.L VBG O2 Sat (Calc) 46.3 (40-65) % VBG Base Excess -12.5 L (0.0-2.0) mmol/L VBG Potassium 5.6 H (3.6-5.2) mmol/L Hgb O2 Saturation (95.0-98.0) % Sodium 124.0 L 124.0 L (132-148) mmol/L Chloride 93.0 L 92.0 L (98-107) mmol/L Glucose 137 H 136 H (75-110) mg/dl Lactate 5.5 H* 5.2 H* (0.7-2.1) mmol/L Mechanical Rate 20 FiO2 21.0 100.0 % Tidal Volume 400 PEEP 10 Potassium (3.6-5.0) mmol/L Carbon Dioxide (21-33) mmol/L Anion Gap (10-20) BUN (7-21) mg/dL Creatinine (0.8-1.5) mg/dL Est GFR ( Amer) Est GFR (Non-Af Amer) POC Glucose (mg/dL) (65-110) mg/dL Random Glucose (70-110) mg/dL Lactic Acid (0.7-2.1) mmol/L Calcium (8.4-10.5) mg/dL Phosphorus (2.5-4.5) mg/dL Magnesium (1.7-2.2) mg/dL Total Bilirubin (0.2-1.3) mg/dL AST (17-59) U/L ALT (7-56) U/L Alkaline Phosphatase (38-126) U/L Total Creatine Kinase 233 H (35-230) U/L CK-MB (CK-2) 2.5 (0.0-3.6) ng/mL CK-MB (CK-2) % Cancelled Troponin I 0.08 D ng/mL Total Protein (5.8-8.3) g/dL Albumin (3.0-4.8) g/dL Globulin gm/dL Albumin/Globulin Ratio (1.1-1.8) Arterial Blood Potassium 5.4 H (3.6-5.2) mmol/L Venous Blood Potassium 5.6 H (3.6-5.2) mmol/L Urine Color (YELLOW) Urine Appearance (CLEAR) Urine pH (4.7-8.0) Ur Specific [place] (1.005-1.035) Urine Protein (<30 mg/dL) mg/dL Urine Glucose (UA) (NEGATIVE) mg/dL Urine Ketones (NEGATIVE) mg/dL Urine Blood (NEGATIVE) Urine Nitrate (NEGATIVE) Urine Bilirubin (NEGATIVE) Urine Urobilinogen (<1 E.U./dL) E.U./dL Ur Leukocyte Esterase (NEGATIVE) Marisela/uL Urine RBC (0-2) /hpf Urine WBC (0-6) /hpf Ur Epithelial Cells (0-5) /hpf Urine Bacteria (NEG) Hyaline Casts /hpf Urine Other Urine Opiates Screen (NEGATIVE) Urine Methadone Screen (NEGATIVE) Ur Barbiturates Screen (NEGATIVE) Ur Phencyclidine Scrn (NEGATIVE) Ur Amphetamines Screen (NEGATIVE) U Benzodiazepines Scrn (NEGATIVE) U Oth Cocaine Metabols (NEGATIVE) U Cannabinoids Screen (NEGATIVE) 03/12/17 03/12/17 Range/Units 00:55 00:55 WBC (4.5-11.0) 10^3/ul RBC (3.5-6.1) 10^6/uL Hgb (14.0-18.0) g/dL Hct (42.0-52.0) % MCV (80.0-105.0) fl MCH (25.0-35.0) pg MCHC (31.0-37.0) g/dl RDW (11.5-14.5) % Plt Count (120.0-450.0) 10^3/uL MPV (7.0-11.0) fl Gran % (50.0-68.0) % Lymph % (Auto) (22.0-35.0) % [place] % (Auto) (1.0-6.0) % Eos % (Auto) (1.5-5.0) % Baso % (Auto) (0.0-3.0) % Gran # (1.4-6.5) Lymph # (1.2-3.4) [place] # (0.1-0.6) Eos # (0.0-0.7) Baso # (0.0-2.0) K/mm3 PT (9.9-11.8) Seconds INR (0.93-1.08) pCO2 (35-45) mm/Hg pO2 (80-100) mm/Hg HCO3 (21-28) mmol/L ABG pH (7.35-7.45) ABG Total CO2 (22-28) mmol.L ABG O2 Saturation (95-98) % ABG O2 Content (15-23) ML/dl ABG Base Excess (-2.0-3.0) mmol/L ABG Hemoglobin (11.7-17.4) g/dL ABG Carboxyhemoglobin (0.5-1.5) % POC ABG HHb (Measured) (0-5) % ABG Methemoglobin (0.0-3.0) % ABG O2 Capacity (16-24) mL/dl ABG Potassium (3.6-5.2) mmol/L VBG pH (7.32-7.43) VBG pCO2 (40-60) VBG HCO3 (21-28) mmol/l VBG Total CO2 (22-28) mmol.L VBG O2 Sat (Calc) (40-65) % VBG Base Excess (0.0-2.0) mmol/L VBG Potassium (3.6-5.2) mmol/L Hgb O2 Saturation (95.0-98.0) % Sodium (132-148) mmol/L Chloride (98-107) mmol/L Glucose (75-110) mg/dl Lactate (0.7-2.1) mmol/L Mechanical Rate FiO2 % Tidal Volume PEEP Potassium (3.6-5.0) mmol/L Carbon Dioxide (21-33) mmol/L Anion Gap (10-20) BUN (7-21) mg/dL Creatinine (0.8-1.5) mg/dL Est GFR ( Amer) Est GFR (Non-Af Amer) POC Glucose (mg/dL) (65-110) mg/dL Random Glucose (70-110) mg/dL Lactic Acid (0.7-2.1) mmol/L Calcium (8.4-10.5) mg/dL Phosphorus (2.5-4.5) mg/dL Magnesium (1.7-2.2) mg/dL Total Bilirubin (0.2-1.3) mg/dL AST (17-59) U/L ALT (7-56) U/L Alkaline Phosphatase (38-126) U/L Total Creatine Kinase (35-230) U/L CK-MB (CK-2) (0.0-3.6) ng/mL CK-MB (CK-2) % Troponin I ng/mL Total Protein (5.8-8.3) g/dL Albumin (3.0-4.8) g/dL Globulin gm/dL Albumin/Globulin Ratio (1.1-1.8) Arterial Blood Potassium (3.6-5.2) mmol/L Venous Blood Potassium (3.6-5.2) mmol/L Urine Color Yellow (YELLOW) Urine Appearance Sl cloudy (CLEAR) Urine pH 6.0 (4.7-8.0) Ur Specific [place] 1.020 (1.005-1.035) Urine Protein 100 H (<30 mg/dL) mg/dL Urine Glucose (UA) Negative (NEGATIVE) mg/dL Urine Ketones Negative (NEGATIVE) mg/dL Urine Blood Negative (NEGATIVE) Urine Nitrate Negative (NEGATIVE) Urine Bilirubin Negative (NEGATIVE) Urine Urobilinogen 1.0 H (<1 E.U./dL) E.U./dL Ur Leukocyte Esterase Negative (NEGATIVE) Marisela/uL Urine RBC 0 - 2 (0-2) /hpf Urine WBC 0 - 2 (0-6) /hpf Ur Epithelial Cells 1 - 3 (0-5) /hpf Urine Bacteria Rare (NEG) Hyaline Casts 0 - 2 /hpf Urine Other Usperm Urine Opiates Screen Positive H (NEGATIVE) Urine Methadone Screen Negative (NEGATIVE) Ur Barbiturates Screen Positive H (NEGATIVE) Ur Phencyclidine Scrn Negative (NEGATIVE) Ur Amphetamines Screen Negative (NEGATIVE) U Benzodiazepines Scrn Positive H (NEGATIVE) U Oth Cocaine Metabols Negative (NEGATIVE) U Cannabinoids Screen Negative (NEGATIVE) Laboratory Results - last 24 hr 03/12/17 03/12/17 03/12/17 00:55 00:55 05:24 WBC RBC Hgb Hct MCV MCH MCHC RDW Plt Count MPV Gran % Lymph % (Auto) [place] % (Auto) Eos % (Auto) Baso % (Auto) Gran # Lymph # [place] # Eos # Baso # PT INR pCO2 42 pO2 29.0 L* HCO3 15.3 L ABG pH 7.17 L* ABG Total CO2 16.6 L ABG O2 Saturation 52.5 L ABG O2 Content ABG Base Excess -12.7 L ABG Hemoglobin ABG Carboxyhemoglobin POC ABG HHb (Measured) ABG Methemoglobin ABG O2 Capacity ABG Potassium 5.4 H VBG pH VBG pCO2 VBG HCO3 VBG Total CO2 VBG O2 Sat (Calc) VBG Base Excess VBG Potassium Hgb O2 Saturation Sodium 124.0 L Chloride 92.0 L Glucose 136 H Lactate 5.2 H* Mechanical Rate 20 FiO2 100.0 Tidal Volume 400 PEEP 10 Potassium Carbon Dioxide Anion Gap BUN Creatinine Est GFR ( Amer) Est GFR (Non-Af Amer) POC Glucose (mg/dL) Random Glucose Lactic Acid Calcium Phosphorus Magnesium Total Bilirubin AST ALT Alkaline Phosphatase Total Creatine Kinase CK-MB (CK-2) CK-MB (CK-2) % Troponin I Total Protein Albumin Globulin Albumin/Globulin Ratio Arterial Blood Potassium 5.4 H Venous Blood Potassium Urine Color Yellow Urine Appearance Sl cloudy Urine pH 6.0 Ur Specific [place] 1.020 Urine Protein 100 H Urine Glucose (UA) Negative Urine Ketones Negative Urine Blood Negative Urine Nitrate Negative Urine Bilirubin Negative Urine Urobilinogen 1.0 H Ur Leukocyte Esterase Negative Urine RBC 0 - 2 Urine WBC 0 - 2 Ur Epithelial Cells 1 - 3 Urine Bacteria Rare Hyaline Casts 0 - 2 Urine Other Usperm Urine Opiates Screen Positive H Urine Methadone Screen Negative Ur Barbiturates Screen Positive H Ur Phencyclidine Scrn Negative Ur Amphetamines Screen Negative U Benzodiazepines Scrn Positive H U Oth Cocaine Metabols Negative U Cannabinoids Screen Negative 03/12/17 03/12/17 03/12/17 05:30 05:30 08:05 WBC RBC Hgb Hct MCV MCH MCHC RDW Plt Count MPV Gran % Lymph % (Auto) [place] % (Auto) Eos % (Auto) Baso % (Auto) Gran # Lymph # [place] # Eos # Baso # PT INR pCO2 pO2 33 HCO3 ABG pH ABG Total CO2 ABG O2 Saturation ABG O2 Content ABG Base Excess ABG Hemoglobin ABG Carboxyhemoglobin POC ABG HHb (Measured) ABG Methemoglobin ABG O2 Capacity ABG Potassium VBG pH 7.08 L* VBG pCO2 61.0 H VBG HCO3 18.1 L VBG Total CO2 20.0 L VBG O2 Sat (Calc) 46.3 VBG Base Excess -12.5 L VBG Potassium 5.6 H Hgb O2 Saturation Sodium 124.0 L Chloride 93.0 L Glucose 137 H Lactate 5.5 H* Mechanical Rate FiO2 21.0 Tidal Volume PEEP Potassium Carbon Dioxide Anion Gap BUN Creatinine Est GFR ( Amer) Est GFR (Non-Af Amer) POC Glucose (mg/dL) 186 H Random Glucose Lactic Acid Calcium Phosphorus Magnesium Total Bilirubin AST ALT Alkaline Phosphatase Total Creatine Kinase 233 H CK-MB (CK-2) 2.5 CK-MB (CK-2) % Cancelled Troponin I 0.08 D Total Protein Albumin Globulin Albumin/Globulin Ratio Arterial Blood Potassium Venous Blood Potassium 5.6 H Urine Color Urine Appearance Urine pH Ur Specific [place] Urine Protein Urine Glucose (UA) Urine Ketones Urine Blood Urine Nitrate Urine Bilirubin Urine Urobilinogen Ur Leukocyte Esterase Urine RBC Urine WBC Ur Epithelial Cells Urine Bacteria Hyaline Casts Urine Other Urine Opiates Screen Urine Methadone Screen Ur Barbiturates Screen Ur Phencyclidine Scrn Ur Amphetamines Screen U Benzodiazepines Scrn U Oth Cocaine Metabols U Cannabinoids Screen 03/12/17 03/12/17 03/12/17 08:15 08:15 08:15 WBC 12.4 H RBC 3.57 Hgb 10.5 L Hct 29.7 L MCV 83.2 MCH 29.4 MCHC 35.4 RDW 13.0 Plt Count 194 MPV 8.9 Gran % 83.9 H Lymph % (Auto) 11.1 L [place] % (Auto) 4.8 Eos % (Auto) 0.1 L Baso % (Auto) 0.1 Gran # 10.40 H Lymph # 1.4 [place] # 0.6 Eos # 0.0 Baso # 0.01 PT 17.2 H INR 1.59 H pCO2 pO2 HCO3 ABG pH ABG Total CO2 ABG O2 Saturation ABG O2 Content ABG Base Excess ABG Hemoglobin ABG Carboxyhemoglobin POC ABG HHb (Measured) ABG Methemoglobin ABG O2 Capacity ABG Potassium VBG pH VBG pCO2 VBG HCO3 VBG Total CO2 VBG O2 Sat (Calc) VBG Base Excess VBG Potassium Hgb O2 Saturation Sodium 128 L Chloride 94 L Glucose Lactate Mechanical Rate FiO2 Tidal Volume PEEP Potassium 4.8 Carbon Dioxide 18 L Anion Gap 21 H BUN 37 H Creatinine 3.0 H Est GFR ( Amer) 28 Est GFR (Non-Af Amer) 24 POC Glucose (mg/dL) Random Glucose 118 H Lactic Acid Calcium 7.2 L Phosphorus 5.8 H Magnesium 1.5 L Total Bilirubin 2.2 H AST 743 H D ALT 502 H Alkaline Phosphatase 100 Total Creatine Kinase CK-MB (CK-2) CK-MB (CK-2) % Troponin I 0.10 D Total Protein 6.5 Albumin 3.2 Globulin 3.3 Albumin/Globulin Ratio 1.0 L Arterial Blood Potassium Venous Blood Potassium Urine Color Urine Appearance Urine pH Ur Specific [place] Urine Protein Urine Glucose (UA) Urine Ketones Urine Blood Urine Nitrate Urine Bilirubin Urine Urobilinogen Ur Leukocyte Esterase Urine RBC Urine WBC Ur Epithelial Cells Urine Bacteria Hyaline Casts Urine Other Urine Opiates Screen Urine Methadone Screen Ur Barbiturates Screen Ur Phencyclidine Scrn Ur Amphetamines Screen U Benzodiazepines Scrn U Oth Cocaine Metabols U Cannabinoids Screen 03/12/17 03/12/17 03/12/17 08:50 09:23 09:46 WBC RBC Hgb Hct MCV MCH MCHC RDW Plt Count MPV Gran % Lymph % (Auto) [place] % (Auto) Eos % (Auto) Baso % (Auto) Gran # Lymph # [place] # Eos # Baso # PT INR pCO2 49 H pO2 74.0 L 166 H HCO3 19.2 L ABG pH 7.20 L ABG Total CO2 20.7 L ABG O2 Saturation 94.8 L ABG O2 Content ABG Base Excess -8.9 L ABG Hemoglobin ABG Carboxyhemoglobin POC ABG HHb (Measured) ABG Methemoglobin ABG O2 Capacity ABG Potassium 4.5 VBG pH 7.18 L* VBG pCO2 53.0 VBG HCO3 19.8 L VBG Total CO2 21.4 L VBG O2 Sat (Calc) 99.3 H VBG Base Excess -8.9 L VBG Potassium 4.7 Hgb O2 Saturation Sodium 125.0 L 125.0 L Chloride 98.0 94.0 L Glucose 119 H 119 H Lactate 1.7 2.2 H Mechanical Rate 18 FiO2 100.0 21.0 Tidal Volume 440 PEEP 20 Potassium Carbon Dioxide Anion Gap BUN Creatinine Est GFR ( Amer) Est GFR (Non-Af Amer) POC Glucose (mg/dL) 110 Random Glucose Lactic Acid Calcium Phosphorus Magnesium Total Bilirubin AST ALT Alkaline Phosphatase Total Creatine Kinase CK-MB (CK-2) CK-MB (CK-2) % Troponin I Total Protein Albumin Globulin Albumin/Globulin Ratio Arterial Blood Potassium 4.5 Venous Blood Potassium 4.7 Urine Color Urine Appearance Urine pH Ur Specific [place] Urine Protein Urine Glucose (UA) Urine Ketones Urine Blood Urine Nitrate Urine Bilirubin Urine Urobilinogen Ur Leukocyte Esterase Urine RBC Urine WBC Ur Epithelial Cells Urine Bacteria Hyaline Casts Urine Other Urine Opiates Screen Urine Methadone Screen Ur Barbiturates Screen Ur Phencyclidine Scrn Ur Amphetamines Screen U Benzodiazepines Scrn U Oth Cocaine Metabols U Cannabinoids Screen 03/12/17 03/12/17 03/12/17 11:31 11:45 12:20 WBC RBC Hgb Hct MCV MCH MCHC RDW Plt Count MPV Gran % Lymph % (Auto) [place] % (Auto) Eos % (Auto) Baso % (Auto) Gran # Lymph # [place] # Eos # Baso # PT INR pCO2 45 pO2 57.0 L HCO3 19.3 L ABG pH 7.24 L ABG Total CO2 20.7 L ABG O2 Saturation 90.9 L ABG O2 Content 12.6 L ABG Base Excess -7.8 L ABG Hemoglobin 10.2 L ABG Carboxyhemoglobin 2.3 H POC ABG HHb (Measured) 8.8 H ABG Methemoglobin 1.0 ABG O2 Capacity 13.9 L ABG Potassium VBG pH VBG pCO2 VBG HCO3 VBG Total CO2 VBG O2 Sat (Calc) VBG Base Excess VBG Potassium Hgb O2 Saturation 87.9 L Sodium Chloride Glucose Lactate Mechanical Rate FiO2 100.0 Tidal Volume PEEP Potassium Carbon Dioxide Anion Gap BUN Creatinine Est GFR ( Amer) Est GFR (Non-Af Amer) POC Glucose (mg/dL) 205 H Random Glucose Lactic Acid Calcium Phosphorus Magnesium Total Bilirubin AST ALT Alkaline Phosphatase Total Creatine Kinase CK-MB (CK-2) CK-MB (CK-2) % Troponin I 0.13 H* D Total Protein Albumin Globulin Albumin/Globulin Ratio Arterial Blood Potassium Venous Blood Potassium Urine Color Urine Appearance Urine pH Ur Specific [place] Urine Protein Urine Glucose (UA) Urine Ketones Urine Blood Urine Nitrate Urine Bilirubin Urine Urobilinogen Ur Leukocyte Esterase Urine RBC Urine WBC Ur Epithelial Cells Urine Bacteria Hyaline Casts Urine Other Urine Opiates Screen Urine Methadone Screen Ur Barbiturates Screen Ur Phencyclidine Scrn Ur Amphetamines Screen U Benzodiazepines Scrn U Oth Cocaine Metabols U Cannabinoids Screen 03/12/17 03/12/17 13:48 Unknown WBC RBC Hgb Hct MCV MCH MCHC RDW Plt Count MPV Gran % Lymph % (Auto) [place] % (Auto) Eos % (Auto) Baso % (Auto) Gran # Lymph # [place] # Eos # Baso # PT INR pCO2 pO2 HCO3 ABG pH ABG Total CO2 ABG O2 Saturation ABG O2 Content ABG Base Excess ABG Hemoglobin ABG Carboxyhemoglobin POC ABG HHb (Measured) ABG Methemoglobin ABG O2 Capacity ABG Potassium VBG pH VBG pCO2 VBG HCO3 VBG Total CO2 VBG O2 Sat (Calc) VBG Base Excess VBG Potassium Hgb O2 Saturation Sodium Chloride Glucose Lactate Mechanical Rate FiO2 Tidal Volume PEEP Potassium Carbon Dioxide Anion Gap BUN Creatinine Est GFR ( Amer) Est GFR (Non-Af Amer) POC Glucose (mg/dL) 120 H Random Glucose Lactic Acid 2.1 Calcium Phosphorus Magnesium Total Bilirubin AST ALT Alkaline Phosphatase Total Creatine Kinase CK-MB (CK-2) CK-MB (CK-2) % Troponin I Total Protein Albumin Globulin Albumin/Globulin Ratio Arterial Blood Potassium Venous Blood Potassium Urine Color Urine Appearance Urine pH Ur Specific [place] Urine Protein Urine Glucose (UA) Urine Ketones Urine Blood Urine Nitrate Urine Bilirubin Urine Urobilinogen Ur Leukocyte Esterase Urine RBC Urine WBC Ur Epithelial Cells Urine Bacteria Hyaline Casts Urine Other Urine Opiates Screen Urine Methadone Screen Ur Barbiturates Screen Ur Phencyclidine Scrn Ur Amphetamines Screen U Benzodiazepines Scrn U Oth Cocaine Metabols U Cannabinoids Screen EKG/Cardiology Studies: Cardiology / EKG Studies 03/12/17 11:59 EKG [ELECTROCARDIOGRAM] Stat Comment: Reason For Exam: Electrolytes imbalance Attending/Attestation - Attestation I have personally seen and examined this patient.: Yes I have fully participated in the care of the patient.: Yes I have reviewed all pertinent clinical information: Yes Notes (Text): 03/12/17 14:35 36 y/o M s/p Suicide attempt. ARDS vent dependant . ARDS net protocol. On high PEEP to keep pao2> 55. Permissive hypercapnea . Sedated on versed, propofol and fentanyl. Paralyzed w/ Nimbex to help with oxygenation. EMpiric abx given, cx drawn. OTONIEL , likely ATN from shock and prolonged Cardiac arrest. ECHO pending. Poor prognosis Cardiac and neuro consults placed. Family discussion was done at bedside w/ the . after 48 hrs, can prognosticate after paralytics and sedation is weaned. cc time 55 min
--- NOTE | 2017-03-12 11:44 | CP.PCM.PN ---
<Zac Archer - Last Filed: 03/12/17 15:51> Subjective - Date & Time of Evaluation Date of Evaluation: 03/12/17 Time of Evaluation: 08:43 - Subjective Subjective: Patient was seen and examined at bedside this morning. The patient is intubated and on pressors. Per nursing no acute events overnight, but patient experienced significant difficulties with oxygenation overnight, with sats persistently in the 40's-70's%. ROS unobtainable due to current clinical condition. Objective - Vital Signs/Intake and Output Vital Signs (last 24 hours): Temp Pulse Resp BP Pulse Ox 95.4 F L 65 18 123/66 91 L 03/12/17 06:10 03/12/17 06:10 03/12/17 08:08 03/12/17 06:09 03/12/17 08:08 Intake and Output: 03/12/17 03/12/17 06:59 18:59 Intake Total 50 Balance 50 - Medications Medications: Current Medications Hydrocortisone Sodium Succinate (Solu-Cortef) 100 mg IVP Q8 [facility] Last Admin: 03/12/17 05:47 Dose: 100 mg Sodium Bicarbonate 150 meq/ (Sodium Chloride) 1,150 mls @ 100 mls/hr IV .[id number] [facility] Last Admin: 03/12/17 00:31 Dose: 100 mls/hr NOREPINEPHRINE BIT/0.9 % NACL (Levophed 4 Mg/ 250 Ml Ns Premixed) 4 mg in 250 mls @ 22.5 mls/hr IV .Q11H7M PRN; Protocol; 6 MCG/MIN PRN Reason: TITRATE PER MD ORDER Last Titration: 03/12/17 03:40 Dose: 10 mcg/min, 37.5 mls/hr Epinephrine HCl 1 mg/ Sodium (Chloride) 51 mls @ 3.06 mls/hr IV .[id number] PRN; Protocol; 1 MCG/MIN PRN Reason: TITRATE PER MD ORDER Last Admin: 03/12/17 00:54 Dose: 1 mcg/min, 3.06 mls/hr Vasopressin 20 units/ Dextrose 101 mls @ 12.12 mls/hr IV .Q8H20M [facility]; 0.04 U/ MIN PRN Reason: Protocol Last Admin: 03/12/17 01:43 Dose: 12.12 mls/hr Ceftriaxone Sodium (Rocephin 1 Gram Ivpb) 1 gm in 100 mls @ 100 mls/hr IVPB DAILY [facility] PRN Reason: Protocol Last Admin: 03/12/17 09:54 Dose: 100 mls/hr Vancomycin HCl (Vancomycin 1gm) 1 gm in 250 mls @ 167 mls/hr IVPB DAILY [facility] PRN Reason: Protocol Last Admin: 03/12/17 09:54 Dose: 167 mls/hr Fentanyl Citrate (Fentanyl Citrate/Sodium Chloride 1 Mg/100 Ml) 1,000 mcg in 100 mls @ 5 mls/hr IV .Q20H PRN; Protocol; 50 MCG/HR PRN Reason: TITRATE PER MD ORDER Last Admin: 03/12/17 05:45 Dose: 50 mcg/hr, 5 mls/hr Midazolam 100 mg/100ml in NS (Midazolam 100 Mg/100ml In Ns) 100 mg in 100 mls @ 1 mls/hr IV .Q24H PRN; Protocol; 1 MG/HR PRN Reason: Agitation Last Admin: 03/12/17 05:42 Dose: 1 mg/hr, 1 mls/hr Propofol (Diprivan) 1,000 mg in 100 mls @ 3.674 mls/hr IV .Q24H PRN; Protocol; 5 MCG/KG/MIN PRN Reason: TITRATE PER MD ORDER Last Admin: 03/12/17 07:45 Dose: 15 mcg/kg/min, 11.022 mls/hr Cisatracurium Besylate 100 mg/ (Sodium Chloride) 260 mls @ 1.91 mls/hr IV .Q24H PRN; Protocol; 0.1 MCG/KG/MIN PRN Reason: TITRATE PER MD ORDER Last Admin: 03/12/17 09:51 Dose: 0.1 mcg/kg/min, 1.91 mls/hr Pantoprazole Sodium (Protonix Inj) 40 mg IVP DAILY [facility] Last Admin: 03/12/17 09:53 Dose: 40 mg - Labs Labs: 03/12/17 08:15 03/12/17 08:15 PT 17.2 Seconds (9.9-11.8) H 03/12/17 08:15 INR 1.59 (0.93-1.08) H 03/12/17 08:15 APTT 59.7 Seconds (23.7-30.8) H 03/11/17 22:49 - Head Exam Head Exam: ATRAUMATIC, NORMAL INSPECTION, NORMOCEPHALIC - Eye Exam Eye Exam: PERRL. absent: EOMI Pupil Exam: PERRL - ENT Exam ENT Exam: Mucous Membranes Moist - Neck Exam Neck Exam: absent: Lymphadenopathy, Thyromegaly - Respiratory Exam Respiratory Exam: Clear to Ausculation Bilateral, NORMAL BREATHING PATTERN. absent: Chest Wall Tenderness, Respiratory Distress - Cardiovascular Exam Cardiovascular Exam: REGULAR RHYTHM, +S1, +S2. absent: Gallop, Rubs - GI/Abdominal Exam GI & Abdominal Exam: Soft, Normal Bowel Sounds - Extremities Exam Extremities Exam: Full ROM. absent: Joint Swelling, Pedal Edema, Tenderness - Neurological Exam Neurological Exam: Altered, Motor Sensory Deficit - Skin Skin Exam: Dry Assessment and Plan - Assessment and Plan (Free Text) Assessment: 36yo male with past medical history of substance abuse, depression, anxiety, hypertension presents with cardiac arrest secondary to drug overdose Plan: Neuro: -Patient intubated and unresponsive on no sedative medication -Maintain temp ~92-94F -Neurochecks q2h -Urine toxicology positive for opiates, barbiturates and benzos -CT Head (-). Seen by Neurology. EEG scheduled for this morning. -Seizure precautions -Neurology rec's appreciated. EEG taken. Will f/u with rec's tomorrow. Cardio: -Patient weaned off dopamine and started on levophed, epinephrine and vasopressin with goal MAP > 70 -Placed on transcutaneous pacing -Troponin negative x1 and one indeterminate results (.08). Will trend. -EKG reviewed; atrial fibrillation with slow ventricular response (51bpm), nonspecific intraventricular block -F/U with Cardiology recs. Pulm: -ABG and CXR reviewed -Currently on PRVC 450/20/10/100%; PEEP increased to 22 given low pO2. GI: -NPO -NGT placed -GI prophylaxis with protonix Renal: -Kayexalate q2h until achievement of bowel movement -Continue Bicarbonate drip @ 100cc/hr -Will continue to monitor and treat electrolyte abnormalities as indicated -Monitor I's and O's Endo: -Fingersticks q2h -Maintain euglycemia between 140-180's -Stress dose steroids with solu-cortef 100mg q8h ID: -Blood and urine cultures drawn -Patient empirically treated with zosyn and vancomycin GI/DVT Prophylaxis: Protonix/SCD's <Miguel Carlos - Last Filed: 03/12/17 16:05> Objective - Vital Signs/Intake and Output Vital Signs (last 24 hours): Temp Pulse Resp BP Pulse Ox 95.4 F L 70 18 123/66 91 L 03/12/17 06:10 03/12/17 10:00 03/12/17 08:08 03/12/17 06:09 03/12/17 08:08 Intake and Output: 03/12/17 03/12/17 06:59 18:59 Intake Total 50 Balance 50 - Medications Medications: Current Medications Hydrocortisone Sodium Succinate (Solu-Cortef) 100 mg IVP Q8 [facility] Last Admin: 03/12/17 14:36 Dose: 100 mg NOREPINEPHRINE BIT/0.9 % NACL (Levophed 4 Mg/ 250 Ml Ns Premixed) 4 mg in 250 mls @ 22.5 mls/hr IV .Q11H7M PRN; Protocol; 6 MCG/MIN PRN Reason: TITRATE PER MD ORDER Last Titration: 03/12/17 03:40 Dose: 10 mcg/min, 37.5 mls/hr Epinephrine HCl 1 mg/ Sodium (Chloride) 51 mls @ 3.06 mls/hr IV .[id number] PRN; Protocol; 1 MCG/MIN PRN Reason: TITRATE PER MD ORDER Last Admin: 03/12/17 00:54 Dose: 1 mcg/min, 3.06 mls/hr Vancomycin HCl (Vancomycin 1gm) 1 gm in 250 mls @ 167 mls/hr IVPB DAILY [facility] PRN Reason: Protocol Last Admin: 03/12/17 09:54 Dose: 167 mls/hr Fentanyl Citrate (Fentanyl Citrate/Sodium Chloride 1 Mg/100 Ml) 1,000 mcg in 100 mls @ 5 mls/hr IV .Q20H PRN; Protocol; 50 MCG/HR PRN Reason: TITRATE PER MD ORDER Last Admin: 03/12/17 05:45 Dose: 50 mcg/hr, 5 mls/hr Midazolam 100 mg/100ml in NS (Midazolam 100 Mg/100ml In Ns) 100 mg in 100 mls @ 1 mls/hr IV .Q24H PRN; Protocol; 1 MG/HR PRN Reason: Agitation Last Admin: 03/12/17 05:42 Dose: 1 mg/hr, 1 mls/hr Propofol (Diprivan) 1,000 mg in 100 mls @ 3.674 mls/hr IV .Q24H PRN; Protocol; 5 MCG/KG/MIN PRN Reason: TITRATE PER MD ORDER Last Admin: 03/12/17 07:45 Dose: 15 mcg/kg/min, 11.022 mls/hr Cisatracurium Besylate 100 mg/ (Sodium Chloride) 260 mls @ 1.91 mls/hr IV .Q24H PRN; Protocol; 0.1 MCG/KG/MIN PRN Reason: TITRATE PER MD ORDER Last Admin: 03/12/17 09:51 Dose: 0.1 mcg/kg/min, 1.91 mls/hr Levetiracetam 1,000 mg/ Sodium (Chloride) 110 mls @ 460 mls/hr IV Q12 [facility] Acetylcysteine 5,450 mg/ (Dextrose) 527.25 mls @ 125 mls/hr IV .Q4H14M ONE Stop: 03/12/17 19:13 Acetylcysteine 10,900 mg/ (Dextrose) 1,054.5 mls @ 62.5 mls/hr IV .[id number] ONE Stop: 03/13/17 11:52 Piperacillin Sod/Tazobactam Sod (Zosyn 2.25 Gm In 0.9% 100 Ml) 2.25 gm in 100 mls @ 100 mls/hr IVPB Q8 [facility] PRN Reason: Protocol Stop: 03/12/17 22:59 Last Admin: 03/12/17 14:37 Dose: 100 mls/hr Pantoprazole Sodium (Protonix Inj) 40 mg IVP DAILY [facility] Last Admin: 03/12/17 09:53 Dose: 40 mg Thiamine HCl (Vitamin B1 Inj) 100 mg IV TID [facility] Stop: 03/15/17 18:01 - Labs Labs: 03/12/17 08:15 03/12/17 08:15 PT 17.2 Seconds (9.9-11.8) H 03/12/17 08:15 INR 1.59 (0.93-1.08) H 03/12/17 08:15 APTT 59.7 Seconds (23.7-30.8) H 03/11/17 22:49 Attending/Attestation - Attestation I have personally seen and examined this patient.: Yes I have fully participated in the care of the patient.: Yes I have reviewed all pertinent clinical information, including history, physical exam and plan: Yes Notes (Text): 03/12/17 16:00 Patient was seen and examined with biomedical engineering professor. 36 yrs old male was admitted with change of mental status due to drug over dose suicide attempt, sp CPR in ER and was intubated.Patient is very hypoxic on FIO2 of 100%. ARDS net protocol. On high PEEP to keep pao2> 55. Permissive hypercapnea . Sedated on versed, propofol and fentanyl. Paralyzed w/ Nimbex to help with oxygenation. Patient is hypotensive and has acute renal failure and elevated LFT due hypotension. Patient condition was discussed with family
[2017-03-12 11:49] LABS: ARTERIAL BLOOD GAS HCO3 19.3 mmol/L (21-28); ARTERIAL BLOOD GAS O2 CAPACITY 13.9 mL/dl (16-24); ARTERIAL BLOOD GAS O2 CONTENT 12.6 ML/dl (15-23); ARTERIAL BLOOD GAS PH 7.24 (7.35-7.45); ARTERIAL BLOOD HGB O2 SAT 87.9 % (95.0-98.0); CARBOXYHEMOGLOBIN 2.3 % (0.5-1.5); HHB 8.8 % (0-5)
[2017-03-12] MEDS ORDERED: levETIRAcetam 1,000 MG in Sodium Chloride 0.9% 100 ML IV ONE (12:30)
--- NOTE | 2017-03-12 12:43 | RAD ---
HISTORY: f/u, worsening ABG COMPARISON: 3:30 a.m. film from the same day FINDINGS: LUNGS: There is an extensive alveolar infiltrate which has shown improvement from the earlier exam PLEURA: No significant pleural effusion identified, no pneumothorax apparent. CARDIOVASCULAR: Normal. OSSEOUS STRUCTURES: No significant abnormalities. VISUALIZED UPPER ABDOMEN: Normal. OTHER FINDINGS: Endotracheal and nasogastric tubes are unchanged IMPRESSION: Extensive alveolar infiltrate showing improvement from earlier film
[2017-03-12] MEDS ORDERED: WATER IV ONE ×4 (14:00→19:00)
[2017-03-12] MEDS ORDERED: DEXTROSE 5% IV ONE ×4 (14:00→19:00)
[2017-03-12] MEDS ORDERED: ACETYLCYSTEINE IV ONE ×4 (14:00→19:00)
[2017-03-12] MEDS: Piperacillin/Tazobact 2.25gm 2.25 GM/100 ML BAG IVPB SCH ×2 (14:37→22:34)
[2017-03-12 17:47] LABS: ARTERIAL BLOOD GAS HCO3 17.2 mmol/L (21-28); ARTERIAL BLOOD GAS O2 CAPACITY 15.4 mL/dl (16-24); ARTERIAL BLOOD GAS O2 CONTENT 14.9 ML/dl (15-23); ARTERIAL BLOOD GAS PH 7.22 (7.35-7.45); ARTERIAL BLOOD HGB O2 SAT 94.3 % (95.0-98.0); CARBOXYHEMOGLOBIN 1.6 % (0.5-1.5); HHB 3.1 % (0-5)
[2017-03-12] MEDS: Thiamine 100 mg/ml Inj IV SCH (17:53)
--- NOTE | 2017-03-12 20:03 | CARD ---
APPROVED REPORT EXAM: Two-dimensional and M-mode echocardiogram with Doppler and color Doppler. INDICATION cardiac arrest 2D DIMENSIONS Left Atrium (2D)3.9 (1.6-4.0cm)IVSd1.2 (0.7-1.1cm) LVDd4.8 (3.9-5.9cm)PWd1.0 (0.7-1.1cm) LVDs3.5 (2.5-4.0cm)FS (%) 28.0 % LVEF (%)54.1 (>50%) M-Mode DIMENSIONS Aortic Root2.90 (2.2-3.7cm)Aortic Cusp Exc.2.20 (1.5-2.0cm) Aortic Valve AoV Peak Uymxkrwy891.0cm/Fernando Peak GR.5mmHg Mitral Valve E/A ratio0.0 TDI E/Lateral E'0.0E/Medial E'0.0 Tricuspid Valve TR Peak [id number] [id number] Peak Gr.27mmHg [id number] LEFT VENTRICLE The left ventricle is normal size. There is normal left ventricular wall thickness. The left ventricular ejection fraction is within the normal range. There is a flattened septum No left ventricle thrombus noted on this study. RIGHT VENTRICLE The right ventricle is mildly dilated. There is normal right ventricular wall thickness. RV Systolic function is moderately reduced. ATRIA The left atrium size is normal. The right atrium is moderately dilated. AORTIC VALVE The aortic valve is normal in structure. No aortic regurgitation is present. MITRAL VALVE The mitral valve is normal in structure. There is no mitral valve regurgitation noted. TRICUSPID VALVE There is mild tricuspid regurgitation. There is mild pulmonary hypertension. GREAT VESSELS The aortic root is normal in size. The IVC is dilated. The IVC collapses <50% with inspiration. <Conclusion> The left ventricle is normal size. There is normal left ventricular wall thickness. The left ventricular ejection fraction is within the normal range. There is a flattened septum The right ventricle is mildly dilated. RV Systolic function is moderately reduced. There is mild tricuspid regurgitation. There is mild pulmonary hypertension.
--- NOTE | 2017-03-12 22:07 | CARD ---
APPROVED REPORT EKG Measurement Heart [id number] <Conclusion> Normal sinus rhythm Prolonged QT Abnormal ECG
[2017-03-12] MEDS: levETIRAcetam 1,000 MG in Sodium Chloride 0.9% 100 ML IV SCH (22:33)
--- NOTE | 2017-03-12 23:00 | CARD ---
APPROVED REPORT EKG Measurement Heart [id number] <Conclusion> Atrial fibrillation with slow ventricular response Nonspecific intraventricular block Early repolarization Artifacts Suggest repeat EKG Abnormal ECG
[2017-03-13] MEDS: Fentanyl 1000mcg/100ml NS 1,000 MCG/100 ML BAG IV PRN ×4 (02:00→22:50)
[2017-03-13] MEDS: Propofol 10 mg/ml 1,000 MG/100 ML VIAL IV PRN ×5 (06:04→22:50)
[2017-03-13 06:25] LABS: ARTERIAL BLOOD GAS O2 CAPACITY 15.3 mL/dl (16-24); ARTERIAL BLOOD GAS O2 CONTENT 15.2 ML/dl (15-23); ARTERIAL BLOOD GAS PH 7.25 (7.35-7.45); ARTERIAL BLOOD HGB O2 SAT 96.1 % (95.0-98.0); CARBOXYHEMOGLOBIN 1.5 % (0.5-1.5); HHB 0.8 % (0-5); METHEMOGLOBIN 1.6 % (0.0-3.0)
[2017-03-13 06:59] LABS: BASO # 0.02 K/mm3 (0.0-2.0); BASO % 0.1 % (0.0-3.0); EOS % 0.1 % (1.5-5.0); GRAN # 12.96 (1.4-6.5); GRAN % 84.3 % (50.0-68.0); HEMATOCRIT 28.3 % (42.0-52.0); LYMPH # 1.5 (1.2-3.4); LYMPH % 9.9 % (22.0-35.0); MEAN CELL VOLUME 82.7 fl (80.0-105.0); MEAN CORPUSCULAR HEMOGLOBIN 29.5 pg (25.0-35.0); MEAN CORPUSCULAR HGB CONC 35.7 g/dl (31.0-37.0); MEAN PLATELET VOLUME 9.3 fl (7.0-11.0); MONO # 0.9 (0.1-0.6); MONO % 5.6 % (1.0-6.0); RED CELL DISTRIBUTION WIDTH 13.4 % (11.5-14.5); WHITE BLOOD COUNT 15.4 10^3/ul (4.5-11.0)
[2017-03-13 07:09] LABS: BILIRUBIN,TOTAL 1.3 mg/dL (0.2-1.3); POTASSIUM 3.7 mmol/L (3.6-5.0); TOTAL PROTEIN 6.1 g/dL (5.8-8.3)
[2017-03-13 07:19] LABS: CALCIUM 6.8 mg/dL (8.4-10.5)
[2017-03-13] MEDS ORDERED: Magnesium Sulfate 2 GM in Sodium Chloride 0.9% 100 ML IVPB ONE (08:44)
[2017-03-13] MEDS: levETIRAcetam 1,000 MG in Sodium Chloride 0.9% 100 ML IV SCH ×2 (09:04→22:49)
[2017-03-13] MEDS: Vancomycin 1gm in NS 250ml 1 GM/250 ML BAG IVPB SCH (09:09)
[2017-03-13] MEDS: Thiamine 100 mg/ml Inj IV SCH ×3 (09:09→18:28)
--- NOTE | 2017-03-13 10:02 | CP.PCM.PN ---
<Zac Archer - Last Filed: 03/13/17 10:10> Subjective - Date & Time of Evaluation Date of Evaluation: 03/13/17 Time of Evaluation: 08:02 - Subjective Subjective: Patient seen and examined at bedside this morning. Per nursing staff no acute events occurred overnight. The patient remains intubated and on pressors. ROS unobtainable due to current clinical condition. Objective - Vital Signs/Intake and Output Vital Signs (last 24 hours): Temp Pulse Resp BP Pulse Ox 97.8 F 68 18 110/59 L 100 03/13/17 04:00 03/13/17 06:15 03/12/17 08:08 03/13/17 06:15 03/13/17 06:15 Intake and Output: 03/13/17 03/13/17 06:59 18:59 Intake Total 1631 Output Total 2200 Balance -569 - Medications Medications: Current Medications Chlorhexidine Gluconate (Peridex) 15 ml PO BID [facility] Hydrocortisone Sodium Succinate (Solu-Cortef) 100 mg IVP Q8 [facility] Last Admin: 03/13/17 06:08 Dose: 100 mg NOREPINEPHRINE BIT/0.9 % NACL (Levophed 4 Mg/ 250 Ml Ns Premixed) 4 mg in 250 mls @ 22.5 mls/hr IV .Q11H7M PRN; Protocol; 6 MCG/MIN PRN Reason: TITRATE PER MD ORDER Last Titration: 03/12/17 19:00 Dose: 0 mcg/min, 0 mls/hr Epinephrine HCl 1 mg/ Sodium (Chloride) 51 mls @ 3.06 mls/hr IV .[id number] PRN; Protocol; 1 MCG/MIN PRN Reason: TITRATE PER MD ORDER Last Titration: 03/12/17 19:00 Dose: Infused Vancomycin HCl (Vancomycin 1gm) 1 gm in 250 mls @ 167 mls/hr IVPB DAILY [facility] PRN Reason: Protocol Last Admin: 03/12/17 09:54 Dose: 167 mls/hr Fentanyl Citrate (Fentanyl Citrate/Sodium Chloride 1 Mg/100 Ml) 1,000 mcg in 100 mls @ 5 mls/hr IV .Q20H PRN; Protocol; 50 MCG/HR PRN Reason: TITRATE PER MD ORDER Last Admin: 03/13/17 02:00 Dose: 150 mcg/hr, 15 mls/hr Midazolam 100 mg/100ml in NS (Midazolam 100 Mg/100ml In Ns) 100 mg in 100 mls @ 1 mls/hr IV .Q24H PRN; Protocol; 1 MG/HR PRN Reason: Agitation Last Admin: 03/12/17 22:54 Dose: 8 mg/hr, 8 mls/hr Propofol (Diprivan) 1,000 mg in 100 mls @ 3.674 mls/hr IV .Q24H PRN; Protocol; 5 MCG/KG/MIN PRN Reason: TITRATE PER MD ORDER Last Admin: 03/13/17 06:04 Dose: 30 mcg/kg/min, 22.045 mls/hr Cisatracurium Besylate 100 mg/ (Sodium Chloride) 260 mls @ 1.91 mls/hr IV .Q24H PRN; Protocol; 0.1 MCG/KG/MIN PRN Reason: TITRATE PER MD ORDER Last Admin: 03/12/17 22:32 Dose: 0.5 mcg/kg/min, 9.55 mls/hr Levetiracetam 1,000 mg/ Sodium (Chloride) 110 mls @ 460 mls/hr IV Q12 [facility] Last Admin: 03/12/17 22:33 Dose: 460 mls/hr Acetylcysteine 10,900 mg/ (Dextrose) 1,054.5 mls @ 62.5 mls/hr IV .[id number] ONE Stop: 03/13/17 11:52 Last Admin: 03/12/17 20:00 Dose: 62.5 mls/hr Pantoprazole Sodium (Protonix Inj) 40 mg IVP DAILY [facility] Last Admin: 03/12/17 09:53 Dose: 40 mg Thiamine HCl (Vitamin B1 Inj) 100 mg IV TID [facility] Stop: 03/15/17 18:01 Last Admin: 03/12/17 17:53 Dose: 100 mg - Labs Labs: 03/13/17 06:45 03/13/17 06:45 PT 17.2 Seconds (9.9-11.8) H 03/12/17 08:15 INR 1.59 (0.93-1.08) H 03/12/17 08:15 APTT 59.7 Seconds (23.7-30.8) H 10/05/17 22:49 - Head Exam Head Exam: ATRAUMATIC, NORMAL INSPECTION, NORMOCEPHALIC - Eye Exam Eye Exam: Normal appearance, PERRL. absent: EOMI Pupil Exam: PERRL - ENT Exam ENT Exam: Mucous Membranes Moist - Neck Exam Neck Exam: Normal Inspection - Respiratory Exam Respiratory Exam: Clear to Ausculation Bilateral, NORMAL BREATHING PATTERN - Cardiovascular Exam Cardiovascular Exam: REGULAR RHYTHM, +S1, +S2. absent: Gallop, Rubs - GI/Abdominal Exam GI & Abdominal Exam: Soft, Normal Bowel Sounds. absent: Rigid, Tenderness - Extremities Exam Extremities Exam: Normal Inspection. absent: Pedal Edema - Back Exam Back Exam: NORMAL INSPECTION - Skin Skin Exam: Dry, Intact Assessment and Plan - Assessment and Plan (Free Text) Assessment: 36yo male with past medical history of substance abuse, depression, anxiety, hypertension presents with cardiac arrest secondary to drug overdose. Plan: Neuro: -Patient intubated and unresponsive on no sedative medication -Continue to Maintain temp ~92-94F -Neurochecks q2h -Urine toxicology positive for opiates, barbiturates and benzos -CT Head (-). Seen by Neurology. EEG completed. Will f/u with rec's tomorrow. -Continue Seizure precautions -Neurology rec's appreciated. EEG taken. Will f/u with rec's tomorrow. Cardio: -Patient weaned off dopamine and started on levophed, epinephrine and vasopressin with goal MAP > 70 -Placed on transcutaneous pacing -Troponin negative x1 and one indeterminate results (.08). Will trend. -EKG reviewed; atrial fibrillation with slow ventricular response (51bpm), nonspecific intraventricular block -F/U with Cardiology recs. Pulm: -ABG and CXR reviewed -patient pO2 on ABG this morning improving. Patient's FiO2 cut down to 60%. Will monitor closely. -Continue serial CXR and ABG. GI: -NPO -NGT -GI prophylaxis with protonix Renal: -Kayexalate q2h until achievement of bowel movement -Continue Bicarbonate drip @ 100cc/hr -Will continue to monitor and treat electrolyte abnormalities as indicated -Monitor I's and O's Endo: -Fingersticks q2h -Maintain euglycemia between 140-180's -Stress dose steroids with solu-cortef 100mg q8h ID: -Blood and urine cultures drawn. WBC count increased to 15.4 today. -Continue with zosyn and vancomycin. Will monitor closely. GI/DVT Prophylaxis: Protonix/SCD's <Miguel Carlos - Last Filed: 03/14/17 13:59> Objective - Vital Signs/Intake and Output Vital Signs (last 24 hours): Temp Pulse Resp BP Pulse Ox 97 F L 64 18 128/62 100 03/14/17 06:00 03/14/17 07:40 03/12/17 08:08 03/14/17 07:30 03/14/17 07:40 Intake and Output: 03/14/17 03/14/17 06:59 18:59 Intake Total 400 2626 Output Total 1950 Balance 400 676 - Medications Medications: Current Medications Albuterol/Ipratropium (Duoneb 3 Mg/0.5 Mg (3 Ml) Ud) 3 ml IH Q2H PRN PRN Reason: Shortness of Breath Last Admin: 03/13/17 15:45 Dose: 3 ml Albuterol/Ipratropium (Duoneb 3 Mg/0.5 Mg (3 Ml) Ud) 3 ml IH [id number] [facility] Last Admin: 03/14/17 08:00 Dose: 3 ml Chlorhexidine Gluconate (Peridex) 15 ml PO BID [facility] Last Admin: 03/14/17 09:49 Dose: 15 ml Hydrocortisone Sodium Succinate (Solu-Cortef) 100 mg IVP Q8 [facility] Last Admin: 03/14/17 13:43 Dose: 100 mg NOREPINEPHRINE BIT/0.9 % NACL (Levophed 4 Mg/ 250 Ml Ns Premixed) 4 mg in 250 mls @ 22.5 mls/hr IV .Q11H7M PRN; Protocol; 6 MCG/MIN PRN Reason: TITRATE PER MD ORDER Last Titration: 03/12/17 19:00 Dose: 0 mcg/min, 0 mls/hr Epinephrine HCl 1 mg/ Sodium (Chloride) 51 mls @ 3.06 mls/hr IV .[id number] PRN; Protocol; 1 MCG/MIN PRN Reason: TITRATE PER MD ORDER Last Titration: 03/12/17 19:00 Dose: Infused Vancomycin HCl (Vancomycin 1gm) 1 gm in 250 mls @ 167 mls/hr IVPB DAILY [facility] PRN Reason: Protocol Last Admin: 03/14/17 09:48 Dose: 167 mls/hr Fentanyl Citrate (Fentanyl Citrate/Sodium Chloride 1 Mg/100 Ml) 1,000 mcg in 100 mls @ 5 mls/hr IV .Q20H PRN; Protocol; 50 MCG/HR PRN Reason: TITRATE PER MD ORDER Last Admin: 03/14/17 11:38 Dose: 150 mcg/hr, 15 mls/hr Midazolam 100 mg/100ml in NS (Midazolam 100 Mg/100ml In Ns) 100 mg in 100 mls @ 1 mls/hr IV .Q24H PRN; Protocol; 1 MG/HR PRN Reason: Agitation Last Admin: 03/13/17 14:39 Dose: 8 mg/hr, 8 mls/hr Propofol (Diprivan) 1,000 mg in 100 mls @ 3.674 mls/hr IV .Q24H PRN; Protocol; 5 MCG/KG/MIN PRN Reason: TITRATE PER MD ORDER Last Admin: 03/14/17 10:22 Dose: 25 mcg/kg/min, 18.371 mls/hr Cisatracurium Besylate 100 mg/ (Sodium Chloride) 260 mls @ 1.91 mls/hr IV .Q24H PRN; Protocol; 0.1 MCG/KG/MIN PRN Reason: TITRATE PER MD ORDER Last Admin: 03/12/17 22:32 Dose: 0.5 mcg/kg/min, 9.55 mls/hr Levetiracetam 1,000 mg/ Sodium (Chloride) 110 mls @ 460 mls/hr IV Q12 [facility] Last Admin: 03/14/17 10:11 Dose: 460 mls/hr Levofloxacin/Dextrose (Levaquin 250mg) 250 mg in 50 mls @ 50 mls/hr IVPB DAILY [facility] Last Admin: 03/14/17 11:56 Dose: 50 mls/hr Pantoprazole Sodium (Protonix Inj) 40 mg IVP DAILY [facility] Last Admin: 03/14/17 10:22 Dose: 40 mg Thiamine HCl (Vitamin B1 Inj) 100 mg IV TID [facility] Stop: 03/15/17 18:01 Last Admin: 03/14/17 13:43 Dose: 100 mg - Labs Labs: 03/14/17 07:00 03/14/17 07:00 PT 11.7 Seconds (9.9-11.8) 03/14/17 07:00 INR 1.08 (0.93-1.08) 03/14/17 07:00 APTT 26.2 Seconds (23.7-30.8) 03/14/17 07:00 Attending/Attestation - Attestation I have personally seen and examined this patient.: Yes I have fully participated in the care of the patient.: Yes I have reviewed all pertinent clinical information, including history, physical exam and plan: Yes Notes (Text): 03/14/17 13:53 Patient was seen and examined with medical record coder. 36 yrs old male was admitted with change of mental status due to drug over dose , suicide attempt, He is CPR in ER and was intubated.Patient was very hypoxic on FIO2 of 100%. ARDS net protocol, has non cardiogenic Pulmonary edema, He has also developed Acute renal failure and elevated LFT due to hypotension..Urine out put is improved.We will follow up BUN/ Creatinin.Nephrology is following. Hypoxia is improving., LFT are coming down, on vancomycin and Levaquin,we will follow up vancomycin trough .Cultures are negative so far. .EEG initially shows encephalopathy, will need repeat once a off sedation, Neurology is following. Management plan was discussed in detail with patient family.
--- NOTE | 2017-03-13 10:29 | PN ---
CARD ROOM MANAGER NOTE DATE: 03/13/2017 SUBJECTIVE: The patient is sedated on the ventilator with FiO2 of 100%. Family is at bedside. The patient is getting sedation as well as paralyzing agent to help with respiratory function and ventilator support. Note that hemodynamically, the patient is stable at this time with medication support. PHYSICAL EXAMINATION: VITAL SIGNS: Note that his temperature is 97.8, pulse is 68, respirations are 20 and his BP is 110/59, O2 saturation is 100%. HEENT: Head is atraumatic, normocephalic. Eyes sluggishly reactive. Ear, nose, and throat seemed to be within normal limits. NECK: Supple. No JVD. No thyroid enlargement, no lymph nodes. HEART: Regular rate and rhythm. Normal S1 and S2. LUNGS: Reveal rare rhonchi bilaterally. ABDOMEN: Soft. Decreased bowel sounds. GENITALIA: Deferred. RECTAL: Deferred. MUSCULOSKELETAL: No joint deformities. EXTREMITIES: Reveal no significant edema. NEUROLOGIC: The patient is sedated on the ventilator. LABORATORY DATA: As far as laboratories, his white count is 15.4, hemoglobin is 10.1, hematocrit 28.3 with platelets of 135,000. The patient's arterial blood gas reveals a pH of 7.25, pCO2 of 41, pO2 of 152. Sodium is 132, potassium 3.7, chloride 94, CO2 of 19 with a BUN of 51, creatinine of 3.6 and a glucose of 132. IMPRESSION AND PLAN: As far as my impression, this patient presented with severe drug overdose with cardiac arrest x3. The patient has respiratory failure requiring ventilator support and noted to have adult respiratory distress syndrome. He has hypotension, hypoxia, hypercapnia. LFTs elevated probably secondary to shock liver. The patient has acute renal failure, anemia and is noted to be obese. He presented with a history of a suicide attempt. The patient noted that he does have respiratory failure on ventilator with 100% as stated above. As far as our plan, we will continue with ventilator support and decrease fraction of inspired oxygen as tolerated. The patient will continue with Nimbex as a paralyzing agent and the Versed, propofol as well as fentanyl for sedation. He is on Levophed for blood pressure support and we will continue with epinephrine as well and the patient is on Keppra because there was seizure activity. He is on Solu-Cortef as well as vancomycin and we will follow his labs and treat aggressively along with the other consultants and the primary care doctor. Ramon Zavaleta MD
[2017-03-13] MEDS: Chlorhexidine 0.12% Oral Sol 480 ml Bot PO SCH ×2 (12:21→18:27)
--- NOTE | 2017-03-13 13:03 | PN ---
DATE: 03/13/2017 NEUROLOGY FOLLOWUP CHIEF COMPLAINT: Follow up for status post cardiac arrest and altered mental status. SUBJECTIVE: The patient is seen and examined at bedside. The patient is on a lot of sedation, in terms of Nimbex, fentanyl, midazolam as well as propofol. I placed the patient on thiamine 100 mg IV t.i.d.. His EEG showed diffuse slowing with delta activity, but no epileptiform activity, consistent with severe bilateral cerebral dysfunction, likely medication induced. He is currently hemodynamically stable with medication support. He is on pressors for his hypotension. No acute events overnight. PAST MEDICAL HISTORY: Anxiety, depression, bipolar disorder, hypertension and substance abuse. PAST SURGICAL HISTORY: Denies. SOCIAL HISTORY: Positive substance abuse, smoking and alcohol abuse. FAMILY HISTORY: Noncontributory. REVIEW OF SYSTEM: Difficult to obtain due to patient's underlying mental status. PHYSICAL EXAMINATION: VITAL SIGNS: Temperature 96.4, pulse rate 68, blood pressure of 111/53 and respiratory rate of , on mechanical ventilation. GENERAL EXAM: The patient is intubated on various sedation. HEART: S1 and S2. Normal rate and rhythm. No murmurs, rubs, or gallops. ABDOMEN: Soft, nontender, nondistended, bowel sounds are present. LUNGS: Clear to auscultation. No adventitious sounds. EXTREMITIES: No clubbing. No cyanosis. Peripheral pulses are 2+ felt bilaterally. NEUROLOGIC EXAMINATION: The patient is intubated; when sedation is stopped, he gets restless. Cranial nerves II through XII intact. Motor exam: Occasional spontaneous movements of the extremities. Sensory exam: Withdraws to localized noxious stimulus. DTRs are 1+ throughout. Coordination and gait deferred for now. LABORATORY DATA: Sodium is 132, potassium is 3.7, chloride 94, carbon dioxide is 19, creatinine of 3.6, BUN of 51, calcium today is 6.8 which is low. ASSESSMENT AND PLAN: This is a 36-year-old man with a history of anxiety, depression, bipolar disorder, hypertension, substance abuse, who was admitted for cardiac arrest and had hypoxic-ischemic arrest, found to be positive for multiple substances in U-tox such as benzodiazepines, barbiturates and opiates and had some seizure activity prior and now is on Keppra 1000 mg q. 12. He is currently being sedated with various paralytic agents as well as midazolam and fentanyl and when he is titrated slowly off, he desats quickly. CAT scan of the head showed no acute intracranial abnormalities, awaiting the brain MRI when he is stable. EEG showed severe bilateral cerebral dysfunction, no evidence of any epileptiform activity. At this time recommend his current present secondary to hypoxic-ischemic arrest causing hypoxic-ischemic encephalopathy secondary to polysubstance abuse. We will recommend: 1. Slowly titrate off sedative meds to assess the neurological outcome. 2. Continue with Keppra at 1000 mg IV q. 12. 3. Thiamine 100 mg IV q. 8 and continue the current present medical management. PROGNOSIS: Guarded. Ivan Rene MD
--- NOTE | 2017-03-13 13:44 | RAD ---
HISTORY: f/u, intubated Technique: Single view portable semi erect @ 12:00 COMPARISON: March 12, 2017. FINDINGS: LUNGS: Stable pulmonary edema, ARDS. PLEURA: No significant pleural effusion identified, no pneumothorax apparent. CARDIOVASCULAR: No significant interval change compared to the prior examination(s). OSSEOUS STRUCTURES: No significant abnormalities. VISUALIZED UPPER ABDOMEN: Normal. OTHER FINDINGS: Support apparatus including nasogastric tube and endotracheal tube are unchanged. IMPRESSION: Stable pulmonary edema, ARDS.
[2017-03-13] MEDS: Midazolam 100 mg/100ml in NS 100 MG/100 ML SOL IV PRN (14:39)
[2017-03-13 14:43] LABS: ARTERIAL BLOOD GAS HCO3 19.5 mmol/L (21-28); ARTERIAL BLOOD GAS O2 CAPACITY 14.1 mL/dl (16-24); ARTERIAL BLOOD HGB O2 SAT 97.4 % (95.0-98.0); CARBOXYHEMOGLOBIN 0.8 % (0.5-1.5); HHB 0.8 % (0-5); METHEMOGLOBIN 1.1 % (0.0-3.0)
--- NOTE | 2017-03-13 14:55 | CON ---
DATE: HISTORY OF PRESENT ILLNESS: This 36-year-old male with past medical history of hypertension, substance abuse, depression, bipolar disorder and anxiety disorder presented to [facility] via EMS and cardiac arrest. The patient continued to be in cardiac arrest and ACLS protocol was continued in ED with achievement of return of spontaneous circulation; the patient found to be in acute renal failure and with ARDS nephrology being consulted for acute renal failure. History is taken from chart as the patient is unresponsive. The patient was found to be unresponsive at his apartment the day before yesterday, he was seen earlier in the day and was reportedly in his usual state of health; when the patient was found, he was unresponsive on the floor of his apartment with numerous pills surrounding him and bottle of liquor. PAST MEDICAL HISTORY: As above. FAMILY HISTORY: Unavailable at this time. SOCIAL HISTORY: Substance abuse. REVIEW OF SYSTEMS: Limited due to the patient's unresponsive status. The patient has remained intubated, has been hypoxic and requiring high PEEP to maintain oxygenation. Also, on multiple sedative agents and paralytic agent in order to maintain saturation in the setting of ARDS. PHYSICAL EXAMINATION: VITAL SIGNS: This morning blood pressure 111/53, heart rate 70, temperature 97, O2 sat 95% on 100% FIO2 via mechanical ventilation. GENERAL: Unresponsive to noxious stimuli. HEENT: Moist mucous membranes. Nonicteric. RESPIRATIONS: Lungs clear to auscultation bilaterally. No rales. No rhonchi. No wheezes. CARDIOVASCULAR: Heart S1, S2 normal. No murmurs, no gallops, no rubs. GASTROINTESTINAL: Abdomen is soft, nontender, nondistended. GENITOURINARY: Arment[place] in place. No bladder distention. EXTREMITIES: Minimal leg edema. SKIN: Warm. No cyanosis. NEUROLOGIC: Pupils reacting to light bilaterally. LABORATORY DATA: This morning CBC; WBC 15.4, hemoglobin 10.1, hematocrit 28.3, platelets 135. Chemistry panel; sodium 132, potassium 3.7, chloride 94, bicarb 19, BUN 51, creatinine 3.6, glucose 132, calcium 6.8, AST 404, ALT 492, albumin 3.0. Urine toxicology on admission was positive for opiates, barbiturates and benzodiazepines. Negative for amphetamines, negative for cocaine. Chest x-ray from this morning was bilateral infiltrates diffusely. ASSESSMENT: 1. Acute renal failure clinically consistent with acute tubular necrosis in the setting of cardiac arrest with prolonged down time; the patient currently polyuric which may reflect some component of diabetes insipidus secondary to brain injury. The patient with mild acidosis, otherwise no hyperkalemia. No urgent indication to initiate renal replacement therapy at this time as the patient is also diuresing. We will continue to monitor daily. 2. Hyponatremia. Sodium on presentation 123 increasing gradually to 132 this morning. Etiology not completely clear as we do not have urine osmolality on presentation; at this point, polyuria may represent a water diuresis secondary to both a central diabetes insipidus in the setting of acute brain injury and/or correction of hyponatremia. Continue to monitor. We will obtain urine studies for sodium, potassium, urea, osmolar and creatinine. 3. Hypocalcemia. Calcium corrected for hypoalbuminemia, still low, can give a dose of calcium gluconate 1 g and reassess. 4. Metabolic acidosis. High anion gap initially, took lactic acidosis which has subsequently improved significantly. Current increased anion gap acidosis likely due in part to acute renal failure, however, in the setting of toxic overdose of multiple substances. We will check serum osmolality to look for presence of an osmolar gap although at this time the patient also with mild metabolic alkalosis that is superimposed up on the acidosis. In the setting of acute respiratory distress syndrome, we will not give any Valium back for now. 5. Systemic inflammatory response syndrome. The patient currently on vancomycin 1 g daily for empiric coverage of sepsis. We will check vancomycin trough tomorrow before giving another dose as the patient is already in acute renal failure and cannot risk further vancomycin toxicity. Jose Prakash MD
[2017-03-13 15:28] LABS: BILIRUBIN,TOTAL 1.2 mg/dL (0.2-1.3); CALCIUM 7.2 mg/dL (8.4-10.5); MAGNESIUM 2.3 mg/dL (1.7-2.2); POTASSIUM 3.6 mmol/L (3.6-5.0); TOTAL PROTEIN 6.5 g/dL (5.8-8.3)
[2017-03-13] MEDS: Albuterol-Ipratrop 3 mg / 0.5 (3 ml) UD IH PRN (15:45)
[2017-03-13 18:30] LABS: INR 1.16 (0.93-1.08)
[2017-03-13 18:32] LABS: BILIRUBIN,TOTAL 1.3 mg/dL (0.2-1.3); CALCIUM 7.8 mg/dL (8.4-10.5); MAGNESIUM 2.4 mg/dL (1.7-2.2); PHOSPHOROUS 4.7 mg/dL (2.5-4.5); POTASSIUM 3.1 mmol/L (3.6-5.0); TOTAL PROTEIN 6.7 g/dL (5.8-8.3)
[2017-03-13] MEDS: Albuterol-Ipratrop 3 mg / 0.5 (3 ml) UD IH SCH (19:32)
--- NOTE | 2017-03-13 21:50 | CARD ---
APPROVED REPORT EKG Measurement Heart [id number] <Conclusion> Marked sinus bradycardia Prolonged QT Abnormal ECG
[2017-03-14] MEDS: Albuterol-Ipratrop 3 mg / 0.5 (3 ml) UD IH SCH ×4 (01:23→19:44)
[2017-03-14] MEDS: Fentanyl 1000mcg/100ml NS 1,000 MCG/100 ML BAG IV PRN ×3 (03:00→18:09)
[2017-03-14 05:28] LABS: ARTERIAL BLOOD GAS HCO3 19.4 mmol/L (21-28); ARTERIAL BLOOD GAS O2 CONTENT 13.9 ML/dl (15-23); ARTERIAL BLOOD GAS PH 7.34 (7.35-7.45); ARTERIAL BLOOD HGB O2 SAT 96.7 % (95.0-98.0); CARBOXYHEMOGLOBIN 1.5 % (0.5-1.5); HHB 0.6 % (0-5); METHEMOGLOBIN 1.3 % (0.0-3.0)
[2017-03-14] MEDS: Propofol 10 mg/ml 1,000 MG/100 ML VIAL IV PRN ×5 (05:41→21:44)
[2017-03-14 07:25] LABS: BASO # 0.03 K/mm3 (0.0-2.0); BASO % 0.2 % (0.0-3.0); EOS % 0.1 % (1.5-5.0); GRAN # 14.08 (1.4-6.5); GRAN % 84.3 % (50.0-68.0); HEMATOCRIT 27.8 % (42.0-52.0); LYMPH # 1.4 (1.2-3.4); LYMPH % 8.6 % (22.0-35.0); MEAN CELL VOLUME 82.5 fl (80.0-105.0); MEAN CORPUSCULAR HEMOGLOBIN 29.7 pg (25.0-35.0); MEAN PLATELET VOLUME 9.5 fl (7.0-11.0); MONO # 1.1 (0.1-0.6); MONO % 6.8 % (1.0-6.0); RED CELL DISTRIBUTION WIDTH 13.4 % (11.5-14.5); WHITE BLOOD COUNT 16.7 10^3/ul (4.5-11.0)
[2017-03-14 07:41] LABS: INR 1.08 (0.93-1.08); PARTIAL THROMBOPLASTIN TIME 26.2 Seconds (23.7-30.8)
[2017-03-14 07:56] LABS: BILIRUBIN,TOTAL 1.1 mg/dL (0.2-1.3); CALCIUM 7.6 mg/dL (8.4-10.5); POTASSIUM 3.2 mmol/L (3.6-5.0); TOTAL PROTEIN 6.4 g/dL (5.8-8.3)
--- NOTE | 2017-03-14 09:06 | PN ---
POLITICAL SCIENCE RESEARCH ASSISTANT NOTE DATE: 03/14/2017 SUBJECTIVE: The patient is sedated on the ventilator and FiO2 has been decreased to 70% and the PEEP has come down to 15. Family is at bedside. The patient continues to require paralysis with Nimbex and is on sedative medications as well. Note, he is, with support of blood pressure medications, hemodynamically stable. PHYSICAL EXAMINATION: VITAL SIGNS: Temperature is 97, pulse is 64, respirations are 20 and his BP is 128/62. SKIN: Warm and dry. HEENT: Head is atraumatic, normocephalic. Eyes, they are sluggishly reactive. Ear, nose, and throat seem to be within normal limits. NECK: Supple. No JVD. No thyroid enlargement, no lymph nodes. HEART: Regular rate and rhythm. Normal S1 and S2. LUNGS: Reveal mild rhonchi at the bases. ABDOMEN: Soft. Decreased bowel sounds. GENITALIA: Deferred. RECTAL: Deferred. MUSCULOSKELETAL: No joint deformities. EXTREMITIES: Reveal trace lower extremity edema. NEUROLOGIC: The patient is sedated on the ventilator. LABORATORY DATA: As far as laboratories, the patient has a white count of 16.7, hemoglobin is 10.0, and hematocrit 27.8 with platelets of 157,000. Arterial blood gas reveals a pH of 7.34, pCO2 of 36, pO2 of 328. Sodium is 138, potassium 3.2, chloride 99, CO2 of 19, BUN of 54 with a creatinine of 3.6 and a glucose of 115. As far as chest x-ray, it is pending. IMPRESSION AND PLAN: As far as my impression is concerned, this patient has history of drug-overdose and cardiac arrest x3. He has respiratory failure requiring ventilator support. The patient has hypotension, hypoxia, hypercapnia, increased LFTs,probably secondary to shock liver and acute renal failure, anemia and obesity. Note that the patient does have history of suicide attempt. We will decrease the FiO2 as the patient tolerates. As far as our plan, we will continue with ventilator support, decrease the FiO2 as tolerated, continue the paralyzing agent and sedation. The patient will continue with Levophed and epinephrine. The patient is on Keppra as well as Solu-Medrol and antibiotics. We will follow closely and treat aggressively along with the other consultants and the primary care doctor. Ramon Zavaleta MD
[2017-03-14] MEDS: Vancomycin 1gm in NS 250ml 1 GM/250 ML BAG IVPB SCH ×2 (09:48→15:30)
[2017-03-14] MEDS: Thiamine 100 mg/ml Inj IV SCH ×3 (09:48→17:22)
[2017-03-14] MEDS: Chlorhexidine 0.12% Oral Sol 480 ml Bot PO SCH ×2 (09:49→17:23)
[2017-03-14] MEDS: levETIRAcetam 1,000 MG in Sodium Chloride 0.9% 100 ML IV SCH ×2 (10:11→21:43)
--- NOTE | 2017-03-14 11:15 | RAD ---
HISTORY: Follow-up, [place] intubated. COMPARISON: March 13, 2017. 12:00 FINDINGS: LUNGS: Improving pulmonary PLEURA: No significant pleural effusion identified, no pneumothorax apparent. CARDIOVASCULAR: Normal. OSSEOUS STRUCTURES: No significant abnormalities. VISUALIZED UPPER ABDOMEN: Normal. OTHER FINDINGS: Edema No significant interval change compared to the prior examination(s). Satisfactory position of nasogastric tube and endotracheal tube. IMPRESSION: Improving pulmonary edema. Satisfactory and stable position of support apparatus.
[2017-03-14] MEDS: levoFLOXacin 250 mg in D5W 250 MG/50 ML BAG IVPB SCH (11:56)
--- NOTE | 2017-03-14 13:53 | CP.PCM.PN ---
<Zac Archer - Last Filed: 03/15/17 14:24> Subjective - Date & Time of Evaluation Date of Evaluation: 03/14/17 Time of Evaluation: 08:52 - Subjective Subjective: Patient seen and examined at bedside this morning. Per nursing staff no acute events overnight. ROS unobtainable due to current clinical condition. Objective - Vital Signs/Intake and Output Vital Signs (last 24 hours): Temp Pulse Resp BP Pulse Ox 97 F L 64 18 128/62 100 03/14/17 06:00 03/14/17 07:40 03/12/17 08:08 03/14/17 07:30 03/14/17 07:40 Intake and Output: 03/14/17 03/14/17 06:59 18:59 Intake Total 400 2626 Output Total 1950 Balance 400 676 - Medications Medications: Current Medications Albuterol/Ipratropium (Duoneb 3 Mg/0.5 Mg (3 Ml) Ud) 3 ml IH Q2H PRN PRN Reason: Shortness of Breath Last Admin: 03/13/17 15:45 Dose: 3 ml Albuterol/Ipratropium (Duoneb 3 Mg/0.5 Mg (3 Ml) Ud) 3 ml IH [id number] [facility] Last Admin: 03/14/17 08:00 Dose: 3 ml Chlorhexidine Gluconate (Peridex) 15 ml PO BID [facility] Last Admin: 03/14/17 09:49 Dose: 15 ml Hydrocortisone Sodium Succinate (Solu-Cortef) 100 mg IVP Q8 [facility] Last Admin: 03/14/17 13:43 Dose: 100 mg NOREPINEPHRINE BIT/0.9 % NACL (Levophed 4 Mg/ 250 Ml Ns Premixed) 4 mg in 250 mls @ 22.5 mls/hr IV .Q11H7M PRN; Protocol; 6 MCG/MIN PRN Reason: TITRATE PER MD ORDER Last Titration: 03/12/17 19:00 Dose: 0 mcg/min, 0 mls/hr Epinephrine HCl 1 mg/ Sodium (Chloride) 51 mls @ 3.06 mls/hr IV .[id number] PRN; Protocol; 1 MCG/MIN PRN Reason: TITRATE PER MD ORDER Last Titration: 03/12/17 19:00 Dose: Infused Vancomycin HCl (Vancomycin 1gm) 1 gm in 250 mls @ 167 mls/hr IVPB DAILY [facility] PRN Reason: Protocol Last Admin: 03/14/17 09:48 Dose: 167 mls/hr Fentanyl Citrate (Fentanyl Citrate/Sodium Chloride 1 Mg/100 Ml) 1,000 mcg in 100 mls @ 5 mls/hr IV .Q20H PRN; Protocol; 50 MCG/HR PRN Reason: TITRATE PER MD ORDER Last Admin: 03/14/17 11:38 Dose: 150 mcg/hr, 15 mls/hr Midazolam 100 mg/100ml in NS (Midazolam 100 Mg/100ml In Ns) 100 mg in 100 mls @ 1 mls/hr IV .Q24H PRN; Protocol; 1 MG/HR PRN Reason: Agitation Last Admin: 03/13/17 14:39 Dose: 8 mg/hr, 8 mls/hr Propofol (Diprivan) 1,000 mg in 100 mls @ 3.674 mls/hr IV .Q24H PRN; Protocol; 5 MCG/KG/MIN PRN Reason: TITRATE PER MD ORDER Last Admin: 03/14/17 10:22 Dose: 25 mcg/kg/min, 18.371 mls/hr Cisatracurium Besylate 100 mg/ (Sodium Chloride) 260 mls @ 1.91 mls/hr IV .Q24H PRN; Protocol; 0.1 MCG/KG/MIN PRN Reason: TITRATE PER MD ORDER Last Admin: 03/12/17 22:32 Dose: 0.5 mcg/kg/min, 9.55 mls/hr Levetiracetam 1,000 mg/ Sodium (Chloride) 110 mls @ 460 mls/hr IV Q12 [facility] Last Admin: 03/14/17 10:11 Dose: 460 mls/hr Levofloxacin/Dextrose (Levaquin 250mg) 250 mg in 50 mls @ 50 mls/hr IVPB DAILY [facility] Last Admin: 03/14/17 11:56 Dose: 50 mls/hr Pantoprazole Sodium (Protonix Inj) 40 mg IVP DAILY [facility] Last Admin: 03/14/17 10:22 Dose: 40 mg Thiamine HCl (Vitamin B1 Inj) 100 mg IV TID [facility] Stop: 03/15/17 18:01 Last Admin: 03/14/17 13:43 Dose: 100 mg - Labs Labs: 03/14/17 07:00 03/14/17 07:00 PT 11.7 Seconds (9.9-11.8) 03/14/17 07:00 INR 1.08 (0.93-1.08) 03/14/17 07:00 APTT 26.2 Seconds (23.7-30.8) 03/14/17 07:00 Assessment and Plan - Assessment and Plan (Free Text) Assessment: 36yo male with past medical history of substance abuse, depression, anxiety, hypertension presents with cardiac arrest secondary to drug overdose. Plan: Neuro: -Patient intubated and unresponsive on no sedative medication -Continue to Maintain temp ~92-94F -Neurochecks q2h -Urine toxicology positive for opiates, barbiturates and benzos -CT Head (-). Seen by Neurology. EEG completed. Will f/u with rec's tomorrow. -Continue to taper FiO2 down as tolerated and continued sedation. -Continue Seizure precautions -Neurology rec's appreciated. EEG taken. Cardio: -Patient weaned off dopamine and started on levophed, epinephrine and vasopressin with goal MAP > 70 -Placed on transcutaneous pacing -Troponin negative x1 and one indeterminate results (.08). Will trend. -EKG reviewed; atrial fibrillation with slow ventricular response (51bpm), nonspecific intraventricular block -F/U with Cardiology recs. Pulm: -ABG and CXR reviewed -patient pO2 on ABG this morning improving. Patient's FiO2 cut down to 60%. Will monitor closely. -Continue serial CXR and ABG. GI: -NPO -NGT -GI prophylaxis with protonix Renal: -Kayexalate q2h until achievement of bowel movement -Continue Bicarbonate drip @ 100cc/hr -Will continue to monitor and treat electrolyte abnormalities as indicated -Monitor I's and O's Endo: -Fingersticks q2h -Maintain euglycemia between 140-180's -Stress dose steroids with solu-cortef 100mg q8h ID: -Blood and urine cultures drawn. WBC count increased to 16.7 today. -Continue with zosyn and vancomycin. Will monitor closely. GI/DVT Prophylaxis: Protonix/SCD's <Miguel Carlos - Last Filed: 03/22/17 15:14> Objective - Vital Signs/Intake and Output Vital Signs (last 24 hours): Temp Pulse Resp BP Pulse Ox 99 F 106 H 20 125/61 96 03/22/17 12:00 03/22/17 14:30 03/22/17 13:20 03/22/17 14:00 03/22/17 14:30 Intake and Output: 03/22/17 03/22/17 06:59 18:59 Intake Total 4005 600 Output Total 2450 Balance 1555 600 - Medications Medications: Current Medications Albuterol/Ipratropium (Duoneb 3 Mg/0.5 Mg (3 Ml) Ud) 3 ml IH Q2H PRN PRN Reason: Shortness of Breath Last Admin: 03/13/17 15:45 Dose: 3 ml Albuterol/Ipratropium (Duoneb 3 Mg/0.5 Mg (3 Ml) Ud) 3 ml IH [id number] [facility] Last Admin: 03/22/17 13:26 Dose: 3 ml Chlorhexidine Gluconate (Peridex) 15 ml PO BID [facility] Last Admin: 03/22/17 12:07 Dose: 15 ml Propofol (Diprivan) 1,000 mg in 100 mls @ 3.674 mls/hr IV .Q24H PRN; Protocol; 5 MCG/KG/MIN PRN Reason: TITRATE PER MD ORDER Last Admin: 03/22/17 14:37 Dose: 50 mcg/kg/min, 36.741 mls/hr Levetiracetam 1,000 mg/ Sodium (Chloride) 110 mls @ 460 mls/hr IV Q12 [facility] Last Admin: 03/22/17 09:40 Dose: 460 mls/hr Potassium Chloride 40 meq/ (Sodium Chloride) 1,020 mls @ 100 mls/hr IV .[id number] [facility] Last Admin: 03/22/17 09:39 Dose: 100 mls/hr Phenytoin 100 mg/ Sodium (Chloride) 52 mls @ 104 mls/hr IVPB TID [facility] Last Admin: 03/22/17 13:13 Dose: 104 mls/hr Metronidazole (Flagyl) 500 mg in 100 mls @ 100 mls/hr IVPB Q8 [facility] PRN Reason: Protocol Stop: 03/28/17 14:01 Last Admin: 03/22/17 13:08 Dose: 100 mls/hr Valproate Sodium 500 mg/ (Sodium Chloride) 105 mls @ 100 mls/hr IVPB Q8 [facility] Last Admin: 03/22/17 13:13 Dose: 100 mls/hr Fentanyl Citrate (Fentanyl Citrate/Sodium Chloride 1 Mg/100 Ml) 1,000 mcg in 100 mls @ 2 mls/hr IV .Q24H PRN; Protocol; 20 MCG/HR PRN Reason: TITRATE PER MD ORDER Last Admin: 03/22/17 13:23 Dose: 200 mcg/hr, 20 mls/hr Midazolam 100 mg/100ml in NS (Midazolam 100 Mg/100ml In Ns) 100 mg in 100 mls @ 20 mls/hr IV .Q5H PRN; Protocol; 20 MG/HR PRN Reason: Sedation Last Admin: 03/22/17 13:20 Dose: 30 mg/hr, 30 mls/hr Dextrose (Dextrose 5% In Water 1000 Ml) 1,000 mls @ 100 mls/hr IV .Q10H [facility] Last Admin: 03/22/17 09:42 Dose: 100 mls/hr Metoprolol Tartrate (Lopressor) 5 mg IVP Q4 PRN PRN Reason: sbp>160 or HR > 130 BPM Pantoprazole Sodium (Protonix Inj) 40 mg IVP Q12 [facility] Last Admin: 03/22/17 09:41 Dose: 40 mg - Labs Labs: 03/22/17 05:30 03/22/17 05:30 PT 11.9 Seconds (9.9-11.8) H 03/22/17 05:30 INR 1.10 (0.93-1.08) H 03/22/17 05:30 APTT 24.9 Seconds (23.7-30.8) 03/22/17 05:30 Attending/Attestation - Attestation I have personally seen and examined this patient.: Yes I have fully participated in the care of the patient.: Yes I have reviewed all pertinent clinical information, including history, physical exam and plan: Yes Notes (Text): 03/22/17 15:10 Patient was seen and examined with medical record clerk. 36 yrs old male was admitted with change of mental status due to drug over dose , suicide attempt, sp CPR in ER and was intubated.Patient was very hypoxic on FIO2 of 100%. ARDS net protocol, non cardiogenic Pulmonary edema, also developed Acute renal failure and elevated LFT due to hypotension.Hypoxia is improving, Creatinin is stable since yesterday, LFT are coming down, Patient is on vancomycin and Levaquin, We will follow up vancomycin trough level and procalcitonin level. .EEG initially shows encephalopathy, will need repeat after off sedation, Neuro/ Nephrology on case. Prognosis is guarded.
[2017-03-14] MEDS: Midazolam 100 mg/100ml in NS 100 MG/100 ML SOL IV PRN (14:23)
--- NOTE | 2017-03-14 23:37 | CP.PCM.PN ---
Subjective - Date & Time of Evaluation Date of Evaluation: 03/14/17 Time of Evaluation: 11:00 - Subjective Subjective: 36 yo M w/ pmh of substance abuse, bipolar disorder, htn, admitted s/p prolonged cardiac arrest; w/ ARDS, acute renal failure; Patient off vasopressor support; still sedated, on paralytic agent; Objective - Vital Signs/Intake and Output Vital Signs (last 24 hours): Temp Pulse Resp BP Pulse Ox 98 F 88 22 126/70 100 03/14/17 12:00 03/14/17 20:20 03/14/17 18:00 03/14/17 20:15 03/14/17 20:20 Intake and Output: 03/14/17 03/15/17 18:59 06:59 Intake Total 3537 100 Output Total 3450 Balance 87 100 - Medications Medications: Current Medications Albuterol/Ipratropium (Duoneb 3 Mg/0.5 Mg (3 Ml) Ud) 3 ml IH Q2H PRN PRN Reason: Shortness of Breath Last Admin: 03/13/17 15:45 Dose: 3 ml Albuterol/Ipratropium (Duoneb 3 Mg/0.5 Mg (3 Ml) Ud) 3 ml IH [id number] [facility] Last Admin: 03/14/17 19:44 Dose: 3 ml Chlorhexidine Gluconate (Peridex) 15 ml PO BID [facility] Last Admin: 03/14/17 17:23 Dose: 15 ml Hydrocortisone Sodium Succinate (Solu-Cortef) 100 mg IVP Q8 [facility] Last Admin: 03/14/17 21:43 Dose: 100 mg NOREPINEPHRINE BIT/0.9 % NACL (Levophed 4 Mg/ 250 Ml Ns Premixed) 4 mg in 250 mls @ 22.5 mls/hr IV .Q11H7M PRN; Protocol; 6 MCG/MIN PRN Reason: TITRATE PER MD ORDER Last Titration: 03/12/17 19:00 Dose: 0 mcg/min, 0 mls/hr Epinephrine HCl 1 mg/ Sodium (Chloride) 51 mls @ 3.06 mls/hr IV .[id number] PRN; Protocol; 1 MCG/MIN PRN Reason: TITRATE PER MD ORDER Last Titration: 03/12/17 19:00 Dose: Infused Vancomycin HCl (Vancomycin 1gm) 1 gm in 250 mls @ 167 mls/hr IVPB DAILY [facility] PRN Reason: Protocol Last Admin: 03/14/17 15:30 Dose: Not Given Fentanyl Citrate (Fentanyl Citrate/Sodium Chloride 1 Mg/100 Ml) 1,000 mcg in 100 mls @ 5 mls/hr IV .Q20H PRN; Protocol; 50 MCG/HR PRN Reason: TITRATE PER MD ORDER Last Admin: 03/14/17 18:09 Dose: 150 mcg/hr, 15 mls/hr Midazolam 100 mg/100ml in NS (Midazolam 100 Mg/100ml In Ns) 100 mg in 100 mls @ 1 mls/hr IV .Q24H PRN; Protocol; 1 MG/HR PRN Reason: Agitation Last Admin: 03/14/17 14:23 Dose: 8 mg/hr, 8 mls/hr Propofol (Diprivan) 1,000 mg in 100 mls @ 3.674 mls/hr IV .Q24H PRN; Protocol; 5 MCG/KG/MIN PRN Reason: TITRATE PER MD ORDER Last Admin: 03/14/17 21:44 Dose: 25 mcg/kg/min, 18.371 mls/hr Cisatracurium Besylate 100 mg/ (Sodium Chloride) 260 mls @ 1.91 mls/hr IV .Q24H PRN; Protocol; 0.1 MCG/KG/MIN PRN Reason: TITRATE PER MD ORDER Last Admin: 03/12/17 22:32 Dose: 0.5 mcg/kg/min, 9.55 mls/hr Levetiracetam 1,000 mg/ Sodium (Chloride) 110 mls @ 460 mls/hr IV Q12 [facility] Last Admin: 03/14/17 21:43 Dose: 460 mls/hr Levofloxacin/Dextrose (Levaquin 250mg) 250 mg in 50 mls @ 50 mls/hr IVPB DAILY [facility] Last Admin: 03/14/17 11:56 Dose: 50 mls/hr Pantoprazole Sodium (Protonix Inj) 40 mg IVP DAILY [facility] Last Admin: 03/14/17 10:22 Dose: 40 mg Thiamine HCl (Vitamin B1 Inj) 100 mg IV TID [facility] Stop: 03/15/17 18:01 Last Admin: 03/14/17 17:22 Dose: 100 mg - Labs Labs: 03/14/17 07:00 03/14/17 07:00 PT 11.7 Seconds (9.9-11.8) 03/14/17 07:00 INR 1.08 (0.93-1.08) 03/14/17 07:00 APTT 26.2 Seconds (23.7-30.8) 03/14/17 07:00 - Constitutional Appears: Non-toxic, No Acute Distress - Head Exam Head Exam: NORMAL INSPECTION - Eye Exam Eye Exam: Scleral icterus - ENT Exam ENT Exam: Mucous Membranes Moist - Respiratory Exam Respiratory Exam: Wheezes. absent: Rales - Cardiovascular Exam Cardiovascular Exam: RRR, +S1, +S2 - GI/Abdominal Exam GI & Abdominal Exam: Soft. absent: Distended - Extremities Exam Additional comments: no leg edema; - Neurological Exam Additional comments: sedated; pupils reactive to light; - Skin Skin Exam: Warm. absent: Cyanosis Assessment and Plan (1) Acute renal failure Status: Acute (2) ARDS (adult respiratory distress syndrome) Status: Acute (3) Polyuria Status: Acute (4) Hyponatremia Status: Acute
[2017-03-15] MEDS: Propofol 10 mg/ml 1,000 MG/100 ML VIAL IV PRN ×6 (00:40→21:30)
[2017-03-15] MEDS: Fentanyl 1000mcg/100ml NS 1,000 MCG/100 ML BAG IV PRN ×4 (00:40→22:46)
[2017-03-15] MEDS: Albuterol-Ipratrop 3 mg / 0.5 (3 ml) UD IH SCH ×4 (01:42→20:05)
[2017-03-15] MEDS: Midazolam 100 mg/100ml in NS 100 MG/100 ML SOL IV PRN ×2 (03:46→15:12)
[2017-03-15 05:34] LABS: ARTERIAL BLOOD GAS HCO3 23.1 mmol/L (21-28); ARTERIAL BLOOD GAS O2 CAPACITY 14.3 mL/dl (16-24); ARTERIAL BLOOD GAS O2 CONTENT 13.6 ML/dl (15-23); ARTERIAL BLOOD GAS PH 7.37 (7.35-7.45); ARTERIAL BLOOD HGB O2 SAT 92.3 % (95.0-98.0); CARBOXYHEMOGLOBIN 1.3 % (0.5-1.5); HHB 5.1 % (0-5); METHEMOGLOBIN 1.3 % (0.0-3.0)
[2017-03-15 06:27] LABS: BASO # 0.03 K/mm3 (0.0-2.0); BASO % 0.2 % (0.0-3.0); EOS % 0.1 % (1.5-5.0); GRAN # 13.86 (1.4-6.5); GRAN % 80.6 % (50.0-68.0); HEMATOCRIT 27.7 % (42.0-52.0); LYMPH % 11.4 % (22.0-35.0); MEAN CELL VOLUME 83.2 fl (80.0-105.0); MEAN CORPUSCULAR HEMOGLOBIN 29.4 pg (25.0-35.0); MEAN CORPUSCULAR HGB CONC 35.4 g/dl (31.0-37.0); MEAN PLATELET VOLUME 9.2 fl (7.0-11.0); MONO # 1.3 (0.1-0.6); MONO % 7.7 % (1.0-6.0); RED CELL DISTRIBUTION WIDTH 13.7 % (11.5-14.5); WHITE BLOOD COUNT 17.2 10^3/ul (4.5-11.0)
[2017-03-15 06:39] LABS: INR 1.07 (0.93-1.08); PARTIAL THROMBOPLASTIN TIME 25.5 Seconds (23.7-30.8)
[2017-03-15 06:46] LABS: BILIRUBIN,TOTAL 1.4 mg/dL (0.2-1.3); CALCIUM 7.7 mg/dL (8.4-10.5); TOTAL PROTEIN 6.7 g/dL (5.8-8.3)
[2017-03-15 07:17] LABS: POTASSIUM 2.5 mmol/L (3.6-5.0)
[2017-03-15] MEDS ORDERED: Potassium Chloride 40 mEq/30 ml LIQ UD PO ONE (07:19)
[2017-03-15 07:34] LABS: MAGNESIUM 2.1 mg/dL (1.7-2.2)
[2017-03-15 09:20] LABS: ARTERIAL BLOOD GAS HCO3 23.7 mmol/L (21-28); ARTERIAL BLOOD GAS O2 CAPACITY 14.5 mL/dl (16-24); ARTERIAL BLOOD GAS O2 CONTENT 13.8 ML/dl (15-23); ARTERIAL BLOOD GAS PH 7.32 (7.35-7.45); ARTERIAL BLOOD HGB O2 SAT 93.1 % (95.0-98.0); CARBOXYHEMOGLOBIN 1.4 % (0.5-1.5); HHB 4.8 % (0-5); METHEMOGLOBIN 0.7 % (0.0-3.0)
--- NOTE | 2017-03-15 09:54 | RAD ---
HISTORY: f/u, intubated COMPARISON: 03/14/2017 FINDINGS: The endotracheal tube is high in position and terminates above the clavicles. LUNGS: The lungs are well inflated. There is bibasilar atelectasis. PLEURA: No significant pleural effusion identified, no pneumothorax apparent. CARDIOVASCULAR: Normal. OSSEOUS STRUCTURES: No significant abnormalities. VISUALIZED UPPER ABDOMEN: Normal. OTHER FINDINGS: None. IMPRESSION: Stable high position of endotracheal tubes terminating above the clavicle. Bibasilar atelectasis. No acute findings.
[2017-03-15] MEDS: levETIRAcetam 1,000 MG in Sodium Chloride 0.9% 100 ML IV SCH ×2 (10:08→22:52)
--- NOTE | 2017-03-15 10:08 | EEG ---
DATE: 03/12/2017 Recording of an EEG which is sleep. DIAGNOSIS: Seizure. MEDICATIONS: Reviewed by nurse reconciliation sheet. INTERPRETATION: This is a 16-channel international recording. The background activity was composed of 4 to 5 cycles per second. There was limited amount of beta activity seen in this recording. There was increased amount of theta activity of 5 to 7 cycles per second seen in this tracing. There was also paroxysmal delta slowing throughout the EEG. There was mild artifact seen throughout the EEG as well. The sleep was characterized by mild vertex transient waves, sleep spindles, and bilateral slowing. Photic stimulation showed no change in the tracing. No paroxysmal activity was noted between the recording. CONCLUSION: This is an abnormal EEG due to presence of diffuse slowing throughout the recording, consistent with bilateral cerebral dysfunction. No evidence of any epileptiform activity. Please clinically correlate. Ivan Rene MD
[2017-03-15] MEDS: Chlorhexidine 0.12% Oral Sol 480 ml Bot PO SCH ×2 (10:11→17:08)
--- NOTE | 2017-03-15 10:11 | CP.PCM.PN ---
<Radha Villatoro - Last Filed: 03/15/17 10:50> Subjective - Date & Time of Evaluation Date of Evaluation: 03/15/17 Time of Evaluation: 10:05 - Subjective Subjective: Neurology Progress Note for Skylar Segovia PGY2 Patient seen and examined at bedside. As per nursing, there were no acute overnight events. Patient is intubated and on sedation. ROS could not be obtained. Objective - Vital Signs/Intake and Output Vital Signs (last 24 hours): Temp Pulse Resp BP Pulse Ox 97.7 F 71 22 133/72 98 03/15/17 06:00 03/15/17 06:45 03/15/17 07:21 03/15/17 06:45 03/15/17 07:21 Intake and Output: 03/15/17 03/15/17 06:59 18:59 Intake Total 1250 200 Output Total 1950 Balance -700 200 - Medications Medications: Current Medications Albuterol/Ipratropium (Duoneb 3 Mg/0.5 Mg (3 Ml) Ud) 3 ml IH Q2H PRN PRN Reason: Shortness of Breath Last Admin: 03/13/17 15:45 Dose: 3 ml Albuterol/Ipratropium (Duoneb 3 Mg/0.5 Mg (3 Ml) Ud) 3 ml IH [id number] [facility] Last Admin: 03/15/17 07:21 Dose: 3 ml Chlorhexidine Gluconate (Peridex) 15 ml PO BID [facility] Last Admin: 03/14/17 17:23 Dose: 15 ml Hydrocortisone Sodium Succinate (Solu-Cortef) 100 mg IVP Q8 [facility] Last Admin: 03/15/17 05:31 Dose: 100 mg NOREPINEPHRINE BIT/0.9 % NACL (Levophed 4 Mg/ 250 Ml Ns Premixed) 4 mg in 250 mls @ 22.5 mls/hr IV .Q11H7M PRN; Protocol; 6 MCG/MIN PRN Reason: TITRATE PER MD ORDER Last Titration: 03/12/17 19:00 Dose: 0 mcg/min, 0 mls/hr Epinephrine HCl 1 mg/ Sodium (Chloride) 51 mls @ 3.06 mls/hr IV .[id number] PRN; Protocol; 1 MCG/MIN PRN Reason: TITRATE PER MD ORDER Last Titration: 03/12/17 19:00 Dose: Infused Vancomycin HCl (Vancomycin 1gm) 1 gm in 250 mls @ 167 mls/hr IVPB DAILY [facility] PRN Reason: Protocol Last Admin: 03/14/17 15:30 Dose: Not Given Fentanyl Citrate (Fentanyl Citrate/Sodium Chloride 1 Mg/100 Ml) 1,000 mcg in 100 mls @ 5 mls/hr IV .Q20H PRN; Protocol; 50 MCG/HR PRN Reason: TITRATE PER MD ORDER Last Admin: 03/15/17 08:49 Dose: 150 mcg/hr, 15 mls/hr Midazolam 100 mg/100ml in NS (Midazolam 100 Mg/100ml In Ns) 100 mg in 100 mls @ 1 mls/hr IV .Q24H PRN; Protocol; 1 MG/HR PRN Reason: Agitation Last Admin: 03/15/17 03:46 Dose: 8 mg/hr, 8 mls/hr Propofol (Diprivan) 1,000 mg in 100 mls @ 3.674 mls/hr IV .Q24H PRN; Protocol; 5 MCG/KG/MIN PRN Reason: TITRATE PER MD ORDER Last Admin: 03/15/17 07:57 Dose: 25 mcg/kg/min, 18.371 mls/hr Cisatracurium Besylate 100 mg/ (Sodium Chloride) 260 mls @ 1.91 mls/hr IV .Q24H PRN; Protocol; 0.1 MCG/KG/MIN PRN Reason: TITRATE PER MD ORDER Last Admin: 03/12/17 22:32 Dose: 0.5 mcg/kg/min, 9.55 mls/hr Levetiracetam 1,000 mg/ Sodium (Chloride) 110 mls @ 460 mls/hr IV Q12 [facility] Last Admin: 03/14/17 21:43 Dose: 460 mls/hr Levofloxacin/Dextrose (Levaquin 250mg) 250 mg in 50 mls @ 50 mls/hr IVPB DAILY [facility] Last Admin: 03/14/17 11:56 Dose: 50 mls/hr Potassium Chloride (Potassium Chloride 20 Meq/100 Ml) 20 meq in 100 mls @ 50 mls/hr IVPB Q2H [facility] Stop: 03/15/17 11:29 Last Admin: 03/15/17 07:42 Dose: 50 mls/hr Pantoprazole Sodium (Protonix Inj) 40 mg IVP DAILY [facility] Last Admin: 03/14/17 10:22 Dose: 40 mg Thiamine HCl (Vitamin B1 Inj) 100 mg IV TID [facility] Stop: 03/15/17 18:01 Last Admin: 03/14/17 17:22 Dose: 100 mg - Labs Labs: 03/15/17 06:10 03/15/17 06:10 PT 11.6 Seconds (9.9-11.8) 03/15/17 06:10 INR 1.07 (0.93-1.08) 03/15/17 06:10 APTT 25.5 Seconds (23.7-30.8) 03/15/17 06:10 - Constitutional Appears: No Acute Distress - Head Exam Head Exam: ATRAUMATIC, NORMAL INSPECTION, NORMOCEPHALIC - Eye Exam Eye Exam: Normal appearance, PERRL Pupil Exam: PERRL - Respiratory Exam Respiratory Exam: Rhonchi, NORMAL BREATHING PATTERN. absent: Rales, Wheezes - Cardiovascular Exam Cardiovascular Exam: REGULAR RHYTHM, +S1, +S2. absent: Gallop, Rubs, Murmur - GI/Abdominal Exam GI & Abdominal Exam: Distended, Soft, Normal Bowel Sounds. absent: Rigid, Tenderness, Mass, Rebound - Neurological Exam Additional comments: Intubated and sedated. Neuro exam limited. PERRL. no dolls eye reflex noted. Positive gag reflex - Skin Skin Exam: Dry, Normal Color, Warm Assessment and Plan - Assessment and Plan (Free Text) Assessment: This is a 36Y M with PMH of anxiety/depression, bipolar disorder, HTN, and substance abuse who was admitted for cardiac arrest who unknown period of time s /p ROSC with hypoxic/ischemic arrest. Patient found to be positive for multiple substances on urine tox (benzo, barbiturate and opiates). Patient is currently intubated and sedated. At one point, patient had seizure-like activity and is now on seizure prophylaxis. This can be secondary to anoxic brain injury we well a metabolic derangements. Head CT did not show any acute abnormalities. EEG showed bilateral cerebral dysfunction. Plan: - Continue Keppra IV - Slowly titrate sedating medication for full neurological assessment - Will do brain MRI when pt more stable - Continue Thiamine - Will re-evaluate patient once off of sedation Prognosis is guarded. Case seen, discussed and reviewed with Dr. Rene. Skylar Villatoro PGY2 <Ivan Rene - Last Filed: 03/15/17 13:50> Objective - Vital Signs/Intake and Output Vital Signs (last 24 hours): Temp Pulse Resp BP Pulse Ox 97.7 F 71 22 133/72 98 03/15/17 06:00 03/15/17 06:45 03/15/17 07:21 03/15/17 06:45 03/15/17 07:21 Intake and Output: 03/15/17 03/15/17 06:59 18:59 Intake Total 1250 300 Output Total 1950 Balance -700 300 - Medications Medications: Current Medications Albuterol/Ipratropium (Duoneb 3 Mg/0.5 Mg (3 Ml) Ud) 3 ml IH Q2H PRN PRN Reason: Shortness of Breath Last Admin: 03/13/17 15:45 Dose: 3 ml Albuterol/Ipratropium (Duoneb 3 Mg/0.5 Mg (3 Ml) Ud) 3 ml IH [id number] [facility] Last Admin: 03/15/17 07:21 Dose: 3 ml Chlorhexidine Gluconate (Peridex) 15 ml PO BID [facility] Last Admin: 03/15/17 10:11 Dose: 15 ml Hydrocortisone Sodium Succinate (Solu-Cortef) 50 mg IVP Q8 [facility] Last Admin: 03/15/17 13:37 Dose: 50 mg NOREPINEPHRINE BIT/0.9 % NACL (Levophed 4 Mg/ 250 Ml Ns Premixed) 4 mg in 250 mls @ 22.5 mls/hr IV .Q11H7M PRN; Protocol; 6 MCG/MIN PRN Reason: TITRATE PER MD ORDER Last Titration: 03/12/17 19:00 Dose: 0 mcg/min, 0 mls/hr Epinephrine HCl 1 mg/ Sodium (Chloride) 51 mls @ 3.06 mls/hr IV .[id number] PRN; Protocol; 1 MCG/MIN PRN Reason: TITRATE PER MD ORDER Last Titration: 03/12/17 19:00 Dose: Infused Vancomycin HCl (Vancomycin 1gm) 1 gm in 250 mls @ 167 mls/hr IVPB DAILY [facility] PRN Reason: Protocol Last Admin: 03/15/17 13:33 Dose: 167 mls/hr Fentanyl Citrate (Fentanyl Citrate/Sodium Chloride 1 Mg/100 Ml) 1,000 mcg in 100 mls @ 5 mls/hr IV .Q20H PRN; Protocol; 50 MCG/HR PRN Reason: TITRATE PER MD ORDER Last Admin: 03/15/17 08:49 Dose: 150 mcg/hr, 15 mls/hr Midazolam 100 mg/100ml in NS (Midazolam 100 Mg/100ml In Ns) 100 mg in 100 mls @ 1 mls/hr IV .Q24H PRN; Protocol; 1 MG/HR PRN Reason: Agitation Last Admin: 03/15/17 03:46 Dose: 8 mg/hr, 8 mls/hr Propofol (Diprivan) 1,000 mg in 100 mls @ 3.674 mls/hr IV .Q24H PRN; Protocol; 5 MCG/KG/MIN PRN Reason: TITRATE PER MD ORDER Last Admin: 03/15/17 10:22 Dose: 25 mcg/kg/min, 18.371 mls/hr Cisatracurium Besylate 100 mg/ (Sodium Chloride) 260 mls @ 1.91 mls/hr IV .Q24H PRN; Protocol; 0.1 MCG/KG/MIN PRN Reason: TITRATE PER MD ORDER Last Admin: 03/12/17 22:32 Dose: 0.5 mcg/kg/min, 9.55 mls/hr Levetiracetam 1,000 mg/ Sodium (Chloride) 110 mls @ 460 mls/hr IV Q12 [facility] Last Admin: 03/15/17 10:08 Dose: 460 mls/hr Levofloxacin/Dextrose (Levaquin 250mg) 250 mg in 50 mls @ 50 mls/hr IVPB DAILY [facility] Last Admin: 03/15/17 10:14 Dose: 50 mls/hr Potassium Chloride 40 meq/ (Sodium Chloride) 1,020 mls @ 100 mls/hr IV .[id number] [facility] Last Admin: 03/15/17 13:26 Dose: 100 mls/hr Cefepime HCl (Maxipime 1gm) 1 gm in 100 mls @ 100 mls/hr IVPB Q12H [facility] PRN Reason: Protocol Last Admin: 03/15/17 13:39 Dose: 100 mls/hr Pantoprazole Sodium (Protonix Inj) 40 mg IVP DAILY [facility] Last Admin: 03/15/17 10:15 Dose: 40 mg Thiamine HCl (Vitamin B1 Inj) 100 mg IV TID [facility] Stop: 03/15/17 18:01 Last Admin: 03/15/17 13:38 Dose: 100 mg - Labs Labs: 03/15/17 06:10 03/15/17 12:00 PT 11.6 Seconds (9.9-11.8) 03/15/17 06:10 INR 1.07 (0.93-1.08) 03/15/17 06:10 APTT 25.5 Seconds (23.7-30.8) 03/15/17 06:10 Attending/Attestation - Attestation I have personally seen and examined this patient.: Yes I have fully participated in the care of the patient.: Yes I have reviewed all pertinent clinical information, including history, physical exam and plan: Yes
[2017-03-15] MEDS: levoFLOXacin 250 mg in D5W 250 MG/50 ML BAG IVPB SCH (10:14)
[2017-03-15] MEDS: Thiamine 100 mg/ml Inj IV SCH ×3 (10:18→17:10)
[2017-03-15] MEDS ORDERED: Propofol 10 mg/ml Inj (20 ML) IVP ONE (11:00)
--- NOTE | 2017-03-15 11:25 | CP.PCM.PN ---
Subjective - Date & Time of Evaluation Date of Evaluation: 03/15/17 Time of Evaluation: 11:22 - Subjective Subjective: 36 yo M w/ htn, bipolar disorder, admitted after cardiac arrest; with ARDS, acute renal failure; Patient still tachypneic, needing to maintain sedation and paralytic agent due to O2 desaturation; Objective - Vital Signs/Intake and Output Vital Signs (last 24 hours): Temp Pulse Resp BP Pulse Ox 97.7 F 71 22 133/72 98 03/15/17 06:00 03/15/17 06:45 03/15/17 07:21 03/15/17 06:45 03/15/17 07:21 Intake and Output: 03/15/17 03/15/17 06:59 18:59 Intake Total 1250 300 Output Total 1950 Balance -700 300 - Medications Medications: Current Medications Albuterol/Ipratropium (Duoneb 3 Mg/0.5 Mg (3 Ml) Ud) 3 ml IH Q2H PRN PRN Reason: Shortness of Breath Last Admin: 03/13/17 15:45 Dose: 3 ml Albuterol/Ipratropium (Duoneb 3 Mg/0.5 Mg (3 Ml) Ud) 3 ml IH [id number] [facility] Last Admin: 03/15/17 07:21 Dose: 3 ml Chlorhexidine Gluconate (Peridex) 15 ml PO BID [facility] Last Admin: 03/15/17 10:11 Dose: 15 ml Hydrocortisone Sodium Succinate (Solu-Cortef) 100 mg IVP Q8 [facility] Last Admin: 03/15/17 05:31 Dose: 100 mg NOREPINEPHRINE BIT/0.9 % NACL (Levophed 4 Mg/ 250 Ml Ns Premixed) 4 mg in 250 mls @ 22.5 mls/hr IV .Q11H7M PRN; Protocol; 6 MCG/MIN PRN Reason: TITRATE PER MD ORDER Last Titration: 03/12/17 19:00 Dose: 0 mcg/min, 0 mls/hr Epinephrine HCl 1 mg/ Sodium (Chloride) 51 mls @ 3.06 mls/hr IV .[id number] PRN; Protocol; 1 MCG/MIN PRN Reason: TITRATE PER MD ORDER Last Titration: 03/12/17 19:00 Dose: Infused Vancomycin HCl (Vancomycin 1gm) 1 gm in 250 mls @ 167 mls/hr IVPB DAILY [facility] PRN Reason: Protocol Last Admin: 03/14/17 15:30 Dose: Not Given Fentanyl Citrate (Fentanyl Citrate/Sodium Chloride 1 Mg/100 Ml) 1,000 mcg in 100 mls @ 5 mls/hr IV .Q20H PRN; Protocol; 50 MCG/HR PRN Reason: TITRATE PER MD ORDER Last Admin: 03/15/17 08:49 Dose: 150 mcg/hr, 15 mls/hr Midazolam 100 mg/100ml in NS (Midazolam 100 Mg/100ml In Ns) 100 mg in 100 mls @ 1 mls/hr IV .Q24H PRN; Protocol; 1 MG/HR PRN Reason: Agitation Last Admin: 03/15/17 03:46 Dose: 8 mg/hr, 8 mls/hr Propofol (Diprivan) 1,000 mg in 100 mls @ 3.674 mls/hr IV .Q24H PRN; Protocol; 5 MCG/KG/MIN PRN Reason: TITRATE PER MD ORDER Last Admin: 03/15/17 10:22 Dose: 25 mcg/kg/min, 18.371 mls/hr Cisatracurium Besylate 100 mg/ (Sodium Chloride) 260 mls @ 1.91 mls/hr IV .Q24H PRN; Protocol; 0.1 MCG/KG/MIN PRN Reason: TITRATE PER MD ORDER Last Admin: 03/12/17 22:32 Dose: 0.5 mcg/kg/min, 9.55 mls/hr Levetiracetam 1,000 mg/ Sodium (Chloride) 110 mls @ 460 mls/hr IV Q12 [facility] Last Admin: 03/15/17 10:08 Dose: 460 mls/hr Levofloxacin/Dextrose (Levaquin 250mg) 250 mg in 50 mls @ 50 mls/hr IVPB DAILY [facility] Last Admin: 03/15/17 10:14 Dose: 50 mls/hr Potassium Chloride (Potassium Chloride 20 Meq/100 Ml) 20 meq in 100 mls @ 50 mls/hr IVPB Q2H [facility] Stop: 03/15/17 11:29 Last Admin: 03/15/17 10:09 Dose: 50 mls/hr Potassium Chloride 40 meq/ (Sodium Chloride) 1,020 mls @ 100 mls/hr IV .[id number] [facility] Pantoprazole Sodium (Protonix Inj) 40 mg IVP DAILY [facility] Last Admin: 03/15/17 10:15 Dose: 40 mg Propofol (Diprivan) 80 mg IVP ONCE ONE Stop: 03/15/17 11:01 Thiamine HCl (Vitamin B1 Inj) 100 mg IV TID [facility] Stop: 03/15/17 18:01 Last Admin: 03/15/17 10:18 Dose: 100 mg - Labs Labs: 03/15/17 06:10 03/15/17 06:10 PT 11.6 Seconds (9.9-11.8) 03/15/17 06:10 INR 1.07 (0.93-1.08) 03/15/17 06:10 APTT 25.5 Seconds (23.7-30.8) 03/15/17 06:10 - Head Exam Head Exam: NORMAL INSPECTION - Eye Exam Eye Exam: Normal appearance - ENT Exam ENT Exam: Mucous Membranes Moist - Respiratory Exam Additional comments: congested sounds; - Cardiovascular Exam Cardiovascular Exam: Tachycardia, REGULAR RHYTHM - GI/Abdominal Exam GI & Abdominal Exam: Soft. absent: Distended - Extremities Exam Additional comments: no leg edema; - Neurological Exam Additional comments: sedated; - Skin Skin Exam: Normal Color, Warm. absent: Cyanosis Assessment and Plan (1) Acute renal failure Assessment & Plan: ATN in the setting of prolonged cardiac arrest; renal function improving; polyuric phase of recovery; had been holding off on IVF due to ARDS status but urine output increased further to ~5L yesterday; -start 1/2NS w/ 40 meq/L KCl at 100 cc/hr -avoid nephrotoxic agents; Status: Acute (2) ARDS (adult respiratory distress syndrome) Assessment & Plan: Again needing paralytic agent to control respirations; overall FIO2 requirement improved; will start IVF to match ~half of urine losses; Status: Acute (3) Polyuria Status: Acute (4) Electrolyte imbalance Assessment & Plan: Na increasing progressively due to urine losses; 1/2NS as above but may need to increase rate if hypernatremia ensues; Profound hypokalemia due to urinary losses; getting replenished; adding KCl to IVF; check bmp this afternoon; Status: Acute
[2017-03-15 12:22] LABS: POTASSIUM 3.4 mmol/L (3.6-5.0)
--- NOTE | 2017-03-15 12:25 | CP.PCM.PN ---
Subjective - Date & Time of Evaluation Date of Evaluation: 03/15/17 Time of Evaluation: 08:00 - Subjective Subjective: Patient seen and examined, remains intubated, sedated, on paralytics, CXR with improvement. Nuerological status difficult to assess as he is sedated and paralyzed for ARDS. Objective - Vital Signs/Intake and Output Vital Signs (last 24 hours): Temp Pulse Resp BP Pulse Ox 97.7 F 71 22 133/72 98 03/15/17 06:00 03/15/17 06:45 03/15/17 07:21 03/15/17 06:45 03/15/17 07:21 Intake and Output: 03/15/17 03/15/17 06:59 18:59 Intake Total 1250 300 Output Total 1950 Balance -700 300 - Medications Medications: Current Medications Albuterol/Ipratropium (Duoneb 3 Mg/0.5 Mg (3 Ml) Ud) 3 ml IH Q2H PRN PRN Reason: Shortness of Breath Last Admin: 03/13/17 15:45 Dose: 3 ml Albuterol/Ipratropium (Duoneb 3 Mg/0.5 Mg (3 Ml) Ud) 3 ml IH [id number] [facility] Last Admin: 03/15/17 07:21 Dose: 3 ml Chlorhexidine Gluconate (Peridex) 15 ml PO BID [facility] Last Admin: 03/15/17 10:11 Dose: 15 ml Hydrocortisone Sodium Succinate (Solu-Cortef) 50 mg IVP Q8 [facility] NOREPINEPHRINE BIT/0.9 % NACL (Levophed 4 Mg/ 250 Ml Ns Premixed) 4 mg in 250 mls @ 22.5 mls/hr IV .Q11H7M PRN; Protocol; 6 MCG/MIN PRN Reason: TITRATE PER MD ORDER Last Titration: 03/12/17 19:00 Dose: 0 mcg/min, 0 mls/hr Epinephrine HCl 1 mg/ Sodium (Chloride) 51 mls @ 3.06 mls/hr IV .[id number] PRN; Protocol; 1 MCG/MIN PRN Reason: TITRATE PER MD ORDER Last Titration: 03/12/17 19:00 Dose: Infused Vancomycin HCl (Vancomycin 1gm) 1 gm in 250 mls @ 167 mls/hr IVPB DAILY [facility] PRN Reason: Protocol Last Admin: 03/14/17 15:30 Dose: Not Given Fentanyl Citrate (Fentanyl Citrate/Sodium Chloride 1 Mg/100 Ml) 1,000 mcg in 100 mls @ 5 mls/hr IV .Q20H PRN; Protocol; 50 MCG/HR PRN Reason: TITRATE PER MD ORDER Last Admin: 03/15/17 08:49 Dose: 150 mcg/hr, 15 mls/hr Midazolam 100 mg/100ml in NS (Midazolam 100 Mg/100ml In Ns) 100 mg in 100 mls @ 1 mls/hr IV .Q24H PRN; Protocol; 1 MG/HR PRN Reason: Agitation Last Admin: 03/15/17 03:46 Dose: 8 mg/hr, 8 mls/hr Propofol (Diprivan) 1,000 mg in 100 mls @ 3.674 mls/hr IV .Q24H PRN; Protocol; 5 MCG/KG/MIN PRN Reason: TITRATE PER MD ORDER Last Admin: 03/15/17 10:22 Dose: 25 mcg/kg/min, 18.371 mls/hr Cisatracurium Besylate 100 mg/ (Sodium Chloride) 260 mls @ 1.91 mls/hr IV .Q24H PRN; Protocol; 0.1 MCG/KG/MIN PRN Reason: TITRATE PER MD ORDER Last Admin: 03/12/17 22:32 Dose: 0.5 mcg/kg/min, 9.55 mls/hr Levetiracetam 1,000 mg/ Sodium (Chloride) 110 mls @ 460 mls/hr IV Q12 [facility] Last Admin: 03/15/17 10:08 Dose: 460 mls/hr Levofloxacin/Dextrose (Levaquin 250mg) 250 mg in 50 mls @ 50 mls/hr IVPB DAILY [facility] Last Admin: 03/15/17 10:14 Dose: 50 mls/hr Potassium Chloride 40 meq/ (Sodium Chloride) 1,020 mls @ 100 mls/hr IV .[id number] [facility] Cefepime HCl (Maxipime 1gm) 1 gm in 100 mls @ 100 mls/hr IVPB Q12H [facility] PRN Reason: Protocol Pantoprazole Sodium (Protonix Inj) 40 mg IVP DAILY [facility] Last Admin: 03/15/17 10:15 Dose: 40 mg Thiamine HCl (Vitamin B1 Inj) 100 mg IV TID [facility] Stop: 03/15/17 18:01 Last Admin: 03/15/17 10:18 Dose: 100 mg - Labs Labs: 03/15/17 06:10 03/15/17 06:10 PT 11.6 Seconds (9.9-11.8) 03/15/17 06:10 INR 1.07 (0.93-1.08) 03/15/17 06:10 APTT 25.5 Seconds (23.7-30.8) 03/15/17 06:10 - Constitutional Appears: Well, Non-toxic, No Acute Distress - Head Exam Head Exam: ATRAUMATIC - Eye Exam Eye Exam: Normal appearance - ENT Exam ENT Exam: Mucous Membranes Moist - Respiratory Exam Respiratory Exam: NORMAL BREATHING PATTERN Additional comments: decreased breath sounds at bases - Cardiovascular Exam Cardiovascular Exam: REGULAR RHYTHM, RRR, +S1, +S2 - GI/Abdominal Exam GI & Abdominal Exam: Soft, Normal Bowel Sounds - Extremities Exam Extremities Exam: Normal Inspection Assessment and Plan - Assessment and Plan (Free Text) Assessment: 36yo male with drug overdose, with multiple substances (+BZDs, barbiturate, Opiates), s/p ROSC after cardiac arrest x 3, unknown initial downtime at home. Cardiac Arrest x 3, s/p ROSC Polysubstance Abuse Drug Over dose s/p NAC ARDS/Hypoxemic Resp failure PNA/Pneumonitis Seizures - currently afebrile, HD stable, comfortable on sedation and paralytics, will attempt to wean off paralytics - ABG with P/F ratio 117, CXR with marked improvement - Pplateau 28-30, on low tidal vol ventilation - On broad spectrum abx - unknown down time prior to initiation of CPR by EMS, likely sustained anoxic brain injury - EEG demonstrated diffuse slowing c/w cerebral dysfunction - overall prognosis remains poor Recommend: - cont with ARDSNET protocol, low TV ventilation, keep Pplateau<30 - repeat ABG in PM - CXR with improvement, likely component of pulm edema - would hold off further IV diuresis - cont with Broad spectrum abx - Decrease steroids to SoluCortef 50mg Q8hr IV - follow up urine Lg/Strep - ECHO - [facility] - Keep NPO for now - titrate off paralytics - obtain LE duplex - replete K, follow up repeat BMP - DVT ppx - GI ppx Critical care time: 40 minutes
[2017-03-15] MEDS: Potassium Chloride 40 MEQ in Sodium Chloride 0.45% 1,000 ML IV SCH (13:26)
[2017-03-15] MEDS: Vancomycin 1gm in NS 250ml 1 GM/250 ML BAG IVPB SCH (13:33)
[2017-03-15] MEDS: Cefepime 1gm in NS 100ml 1 GM/100 ML BAG IVPB SCH (13:39)
--- NOTE | 2017-03-15 13:55 | CP.PCM.PN ---
<Zac Archer - Last Filed: 03/15/17 20:12> Subjective - Date & Time of Evaluation Date of Evaluation: 03/15/17 Time of Evaluation: 08:52 - Subjective Subjective: Patient seen and examined at bedside. Per nursing staff no acute events occurred overnight. The patient remaind intubated and sedated. ROS unobtainable due to current clinical condition. Objective - Vital Signs/Intake and Output Vital Signs (last 24 hours): Temp Pulse Resp BP Pulse Ox 97.7 F 71 22 133/72 98 03/15/17 06:00 03/15/17 06:45 03/15/17 07:21 03/15/17 06:45 03/15/17 07:21 Intake and Output: 03/15/17 03/15/17 06:59 18:59 Intake Total 1250 300 Output Total 1950 Balance -700 300 - Medications Medications: Current Medications Albuterol/Ipratropium (Duoneb 3 Mg/0.5 Mg (3 Ml) Ud) 3 ml IH Q2H PRN PRN Reason: Shortness of Breath Last Admin: 03/13/17 15:45 Dose: 3 ml Albuterol/Ipratropium (Duoneb 3 Mg/0.5 Mg (3 Ml) Ud) 3 ml IH [id number] [facility] Last Admin: 03/15/17 13:50 Dose: 3 ml Chlorhexidine Gluconate (Peridex) 15 ml PO BID [facility] Last Admin: 03/15/17 10:11 Dose: 15 ml Hydrocortisone Sodium Succinate (Solu-Cortef) 50 mg IVP Q8 [facility] Last Admin: 03/15/17 13:37 Dose: 50 mg NOREPINEPHRINE BIT/0.9 % NACL (Levophed 4 Mg/ 250 Ml Ns Premixed) 4 mg in 250 mls @ 22.5 mls/hr IV .Q11H7M PRN; Protocol; 6 MCG/MIN PRN Reason: TITRATE PER MD ORDER Last Titration: 03/12/17 19:00 Dose: 0 mcg/min, 0 mls/hr Epinephrine HCl 1 mg/ Sodium (Chloride) 51 mls @ 3.06 mls/hr IV .[id number] PRN; Protocol; 1 MCG/MIN PRN Reason: TITRATE PER MD ORDER Last Titration: 03/12/17 19:00 Dose: Infused Vancomycin HCl (Vancomycin 1gm) 1 gm in 250 mls @ 167 mls/hr IVPB DAILY [facility] PRN Reason: Protocol Last Admin: 03/15/17 13:33 Dose: 167 mls/hr Fentanyl Citrate (Fentanyl Citrate/Sodium Chloride 1 Mg/100 Ml) 1,000 mcg in 100 mls @ 5 mls/hr IV .Q20H PRN; Protocol; 50 MCG/HR PRN Reason: TITRATE PER MD ORDER Last Admin: 03/15/17 08:49 Dose: 150 mcg/hr, 15 mls/hr Midazolam 100 mg/100ml in NS (Midazolam 100 Mg/100ml In Ns) 100 mg in 100 mls @ 1 mls/hr IV .Q24H PRN; Protocol; 1 MG/HR PRN Reason: Agitation Last Admin: 03/15/17 03:46 Dose: 8 mg/hr, 8 mls/hr Propofol (Diprivan) 1,000 mg in 100 mls @ 3.674 mls/hr IV .Q24H PRN; Protocol; 5 MCG/KG/MIN PRN Reason: TITRATE PER MD ORDER Last Admin: 03/15/17 10:22 Dose: 25 mcg/kg/min, 18.371 mls/hr Cisatracurium Besylate 100 mg/ (Sodium Chloride) 260 mls @ 1.91 mls/hr IV .Q24H PRN; Protocol; 0.1 MCG/KG/MIN PRN Reason: TITRATE PER MD ORDER Last Admin: 03/12/17 22:32 Dose: 0.5 mcg/kg/min, 9.55 mls/hr Levetiracetam 1,000 mg/ Sodium (Chloride) 110 mls @ 460 mls/hr IV Q12 [facility] Last Admin: 03/15/17 10:08 Dose: 460 mls/hr Levofloxacin/Dextrose (Levaquin 250mg) 250 mg in 50 mls @ 50 mls/hr IVPB DAILY [facility] Last Admin: 03/15/17 10:14 Dose: 50 mls/hr Potassium Chloride 40 meq/ (Sodium Chloride) 1,020 mls @ 100 mls/hr IV .[id number] [facility] Last Admin: 03/15/17 13:26 Dose: 100 mls/hr Cefepime HCl (Maxipime 1gm) 1 gm in 100 mls @ 100 mls/hr IVPB Q12H [facility] PRN Reason: Protocol Last Admin: 03/15/17 13:39 Dose: 100 mls/hr Pantoprazole Sodium (Protonix Inj) 40 mg IVP DAILY [facility] Last Admin: 03/15/17 10:15 Dose: 40 mg Thiamine HCl (Vitamin B1 Inj) 100 mg IV TID [facility] Stop: 03/15/17 18:01 Last Admin: 03/15/17 13:38 Dose: 100 mg - Labs Labs: 03/15/17 06:10 03/15/17 12:00 PT 11.6 Seconds (9.9-11.8) 03/15/17 06:10 INR 1.07 (0.93-1.08) 03/15/17 06:10 APTT 25.5 Seconds (23.7-30.8) 03/15/17 06:10 - Head Exam Head Exam: NORMAL INSPECTION - Eye Exam Eye Exam: Normal appearance, PERRL. absent: EOMI Pupil Exam: PERRL - ENT Exam ENT Exam: Mucous Membranes Moist, Normal Oropharynx - Neck Exam Additional comments: Intubated. - Respiratory Exam Respiratory Exam: Clear to Ausculation Bilateral, NORMAL BREATHING PATTERN. absent: Accessory Muscle Use, Respiratory Distress - Cardiovascular Exam Cardiovascular Exam: REGULAR RHYTHM, +S1, +S2. absent: Gallop, Rubs - GI/Abdominal Exam GI & Abdominal Exam: Soft, Normal Bowel Sounds. absent: Rigid, Hyperactive Bowel Sounds - Extremities Exam Extremities Exam: absent: Joint Swelling, Pedal Edema - Neurological Exam Neurological Exam: Altered - Skin Skin Exam: Dry, Intact Assessment and Plan - Assessment and Plan (Free Text) Assessment: 36yo male with past medical history of substance abuse, depression, anxiety, hypertension presents with cardiac arrest secondary to drug overdose. Plan: Neuro: -Patient intubated and unresponsive on no sedative medication -Continue to Maintain temp ~92-94F -Neurochecks q2h -Urine toxicology positive for opiates, barbiturates and benzos -CT Head (-). Seen by Neurology. EEG completed. Will f/u with rec's tomorrow. -Patient sedation cut down today initially, however respiration rate was irregular and accelerated. Sedated. Will continue to taper FiO2 down as tolerated and continued sedation. -Continue Seizure precautions -Neurology rec's appreciated. EEG showed diffuse slowing throughout the recording, consistent with bilateral cerebral dysfunction. No evidence of epileptiform activity. -Neuro status hard to determine due to sedation. Will reassess once sedation is weaned off. Cardio: -Continue Fentanyl, propofol, Cisatracurium, and Midozalam with goal MAP > 70 -Troponin negative x1 and one indeterminate results (.08). -EKG reviewed; atrial fibrillation with slow ventricular response (51bpm), nonspecific intraventricular block -F/U with Cardiology recs. Pulm: -ABG and CXR reviewed -patient pO2 on ABG this morning improving. Patient's FiO2 cut down to 60%. Will monitor closely. -Continue serial CXR and ABG. GI: -NPO -NGT -GI prophylaxis with protonix Renal: -Continue Bicarbonate drip @ 100cc/hr -Will continue to monitor and treat electrolyte abnormalities as indicated -Monitor I's and O's Endo: -Fingersticks q2h -Maintain euglycemia between 140-180's -Stress dose steroids with solu-cortef 100mg q8h ID: -Blood and urine cultures drawn. No growth in blood and urine cultures after 3 days. Will f/u with final results tomorrow. WBC count increased to 17.2 today. -Continue with levaquin and vancomycin. Will monitor closely. GI/DVT Prophylaxis: Protonix/SCD's <Rhaeel Espitia - Last Filed: 03/16/17 07:27> Objective - Vital Signs/Intake and Output Vital Signs (last 24 hours): Temp Pulse Resp BP Pulse Ox 97.4 F L 74 24 156/81 H 100 03/16/17 06:00 03/16/17 06:00 03/16/17 06:00 03/16/17 06:00 03/16/17 06:00 Intake and Output: 03/16/17 03/16/17 06:59 18:59 Intake Total 651.000 Output Total 2600 Balance -1949.000 - Medications Medications: Current Medications Albuterol/Ipratropium (Duoneb 3 Mg/0.5 Mg (3 Ml) Ud) 3 ml IH Q2H PRN PRN Reason: Shortness of Breath Last Admin: 03/13/17 15:45 Dose: 3 ml Albuterol/Ipratropium (Duoneb 3 Mg/0.5 Mg (3 Ml) Ud) 3 ml IH [id number] [facility] Last Admin: 03/16/17 02:48 Dose: 3 ml Chlorhexidine Gluconate (Peridex) 15 ml PO BID [facility] Last Admin: 03/15/17 17:08 Dose: 15 ml Hydrocortisone Sodium Succinate (Solu-Cortef) 50 mg IVP Q8 [facility] Last Admin: 03/15/17 22:54 Dose: 50 mg NOREPINEPHRINE BIT/0.9 % NACL (Levophed 4 Mg/ 250 Ml Ns Premixed) 4 mg in 250 mls @ 22.5 mls/hr IV .Q11H7M PRN; Protocol; 6 MCG/MIN PRN Reason: TITRATE PER MD ORDER Last Titration: 03/12/17 19:00 Dose: 0 mcg/min, 0 mls/hr Epinephrine HCl 1 mg/ Sodium (Chloride) 51 mls @ 3.06 mls/hr IV .[id number] PRN; Protocol; 1 MCG/MIN PRN Reason: TITRATE PER MD ORDER Last Titration: 03/12/17 19:00 Dose: Infused Vancomycin HCl (Vancomycin 1gm) 1 gm in 250 mls @ 167 mls/hr IVPB DAILY [facility] PRN Reason: Protocol Last Admin: 03/15/17 13:33 Dose: 167 mls/hr Midazolam 100 mg/100ml in NS (Midazolam 100 Mg/100ml In Ns) 100 mg in 100 mls @ 1 mls/hr IV .Q24H PRN; Protocol; 1 MG/HR PRN Reason: Agitation Last Admin: 03/16/17 06:42 Dose: 8 mg/hr, 8 mls/hr Propofol (Diprivan) 1,000 mg in 100 mls @ 3.674 mls/hr IV .Q24H PRN; Protocol; 5 MCG/KG/MIN PRN Reason: TITRATE PER MD ORDER Last Titration: 03/16/17 06:53 Dose: 30 mcg/kg/min, 22.045 mls/hr Cisatracurium Besylate 100 mg/ (Sodium Chloride) 260 mls @ 1.91 mls/hr IV .Q24H PRN; Protocol; 0.1 MCG/KG/MIN PRN Reason: TITRATE PER MD ORDER Last Admin: 03/12/17 22:32 Dose: 0.5 mcg/kg/min, 9.55 mls/hr Levetiracetam 1,000 mg/ Sodium (Chloride) 110 mls @ 460 mls/hr IV Q12 [facility] Last Admin: 03/15/17 22:52 Dose: 460 mls/hr Levofloxacin/Dextrose (Levaquin 250mg) 250 mg in 50 mls @ 50 mls/hr IVPB DAILY [facility] Last Admin: 03/15/17 10:14 Dose: 50 mls/hr Potassium Chloride 40 meq/ (Sodium Chloride) 1,020 mls @ 100 mls/hr IV .[id number] [facility] Last Admin: 03/16/17 06:37 Dose: 100 mls/hr Cefepime HCl (Maxipime 1gm) 1 gm in 100 mls @ 100 mls/hr IVPB Q12H [facility] PRN Reason: Protocol Last Admin: 03/16/17 02:14 Dose: 100 mls/hr Fentanyl Citrate (Fentanyl Citrate/Sodium Chloride 1 Mg/100 Ml) 1,000 mcg in 100 mls @ 15 mls/hr IV .Q6H40M PRN; Protocol; 150 MCG/HR PRN Reason: TITRATE PER MD ORDER Last Titration: 03/16/17 06:50 Dose: 200 mcg/hr, 20 mls/hr Pantoprazole Sodium (Protonix Inj) 40 mg IVP DAILY [facility] Last Admin: 03/15/17 10:15 Dose: 40 mg - Labs Labs: 03/16/17 05:30 03/15/17 12:00 PT 11.6 Seconds (9.9-11.8) 03/15/17 06:10 INR 1.07 (0.93-1.08) 03/15/17 06:10 APTT 25.5 Seconds (23.7-30.8) 03/15/17 06:10 Attending/Attestation - Attestation I have personally seen and examined this patient.: Yes I have fully participated in the care of the patient.: Yes I have reviewed all pertinent clinical information, including history, physical exam and plan: Yes Notes (Text): 03/15/17 36 year old male with past medical history of depression, anxiety, hypertension , and substance abuse who presented with cardiac arrest secondary to suspected drug overdose. Urine drug screen was positive for opiates, barbituates and benzodiazepines. He is currently intubated on sedation. Continue with vent management as per shop repairer. Neurology is also following. EEG was reviewed. MRI brain is ordered. He was also found to have renal insufficiency for which nephrology is following. LFTs and renal function are improving. He is also on stress dose steroids and iv antibiotics. Raheel Espitia MD Hospitalist.
--- NOTE | 2017-03-15 16:01 | US ---
HISTORY: Leg pain and swelling. Evaluate for DVT PHYSICIAN(S): Ken Aguilar MD. TECHNIQUE: Duplex sonography and color-flow Doppler with graded compression were used to evaluate the deep venous systems of both lower extremities. FINDINGS: The visualized deep venous systems of both lower extremities are sonographically normal and compressible. Normal wave forms and augmentation are seen. There is no sonographic evidence for deep venous thrombosis in the visualized segments of both lower extremities. IMPRESSION: No sonographic evidence for deep venous thrombosis in the visualized segments of both lower extremities.
[2017-03-16] MEDS: Cefepime 1gm in NS 100ml 1 GM/100 ML BAG IVPB SCH ×2 (02:14→17:03)
[2017-03-16] MEDS: Albuterol-Ipratrop 3 mg / 0.5 (3 ml) UD IH SCH ×4 (02:48→20:00)
[2017-03-16] MEDS: Propofol 10 mg/ml 1,000 MG/100 ML VIAL IV PRN ×4 (02:55→23:08)
[2017-03-16] MEDS ORDERED: fentaNYL 1,000 MCG in Sodium Chloride 0.9% 80 ML IV SCH (05:30)
[2017-03-16 05:49] LABS: ARTERIAL BLOOD GAS HCO3 25.4 mmol/L (21-28); ARTERIAL BLOOD GAS O2 CAPACITY 14.6 mL/dl (16-24); ARTERIAL BLOOD GAS O2 CONTENT 14.5 ML/dl (15-23); ARTERIAL BLOOD GAS PH 7.34 (7.35-7.45); ARTERIAL BLOOD HGB O2 SAT 96.8 % (95.0-98.0); CARBOXYHEMOGLOBIN 1.3 % (0.5-1.5); HHB 0.9 % (0-5)
[2017-03-16] MEDS: Potassium Chloride 40 MEQ in Sodium Chloride 0.45% 1,000 ML IV SCH (06:37)
[2017-03-16] MEDS: Fentanyl 1000mcg/100ml NS 1,000 MCG/100 ML BAG IV PRN ×3 (06:37→23:11)
[2017-03-16] MEDS: Midazolam 100 mg/100ml in NS 100 MG/100 ML SOL IV PRN (06:42)
[2017-03-16 06:44] LABS: BASO # 0.06 K/mm3 (0.0-2.0); BASO % 0.3 % (0.0-3.0); EOS # 0.1 (0.0-0.7); EOS % 0.3 % (1.5-5.0); GRAN # 16.54 (1.4-6.5); GRAN % 82.2 % (50.0-68.0); HEMATOCRIT 29.4 % (42.0-52.0); LYMPH # 2.1 (1.2-3.4); LYMPH % 10.6 % (22.0-35.0); MEAN CORPUSCULAR HEMOGLOBIN 28.6 pg (25.0-35.0); MEAN CORPUSCULAR HGB CONC 33.7 g/dl (31.0-37.0); MEAN PLATELET VOLUME 9.5 fl (7.0-11.0); MONO # 1.3 (0.1-0.6); MONO % 6.6 % (1.0-6.0); WHITE BLOOD COUNT 20.1 10^3/ul (4.5-11.0)
[2017-03-16 06:51] LABS: CALCIUM 8.5 mg/dL (8.4-10.5)
[2017-03-16 07:08] LABS: PHOSPHOROUS 6.1 mg/dL (2.5-4.5)
[2017-03-16] MEDS: Dexmedetomidine HCl 4mcg/ml 400 MCG/100 ML BOTTLE IV PRN ×4 (07:59→20:30)
[2017-03-16] MEDS ORDERED: Potassium Chloride 40 mEq/30 ml LIQ UD PO ONE ×2 (08:03→16:51)
--- NOTE | 2017-03-16 08:42 | RAD ---
HISTORY: evaluation of ARDS COMPARISON: 03/15/2017 FINDINGS: Endotracheal tube remains high in position terminating at the level of the thoracic inlet. The nasogastric tube terminates in the stomach. LUNGS: The lungs are well inflated. There is multifocal atelectasis and pulmonary venous congestion. No focal consolidation. PLEURA: No significant pleural effusion identified, no pneumothorax apparent. CARDIOVASCULAR: Normal. OSSEOUS STRUCTURES: No significant abnormalities. VISUALIZED UPPER ABDOMEN: Normal. OTHER FINDINGS: None. IMPRESSION: High position of endotracheal tube terminating at the thoracic inlet. Repositioning is recommended. Stable appearance the lungs. No consolidation.
--- NOTE | 2017-03-16 10:43 | CP.PCM.PN ---
<Zac Archer - Last Filed: 03/16/17 10:44> Subjective - Date & Time of Evaluation Date of Evaluation: 03/16/17 Time of Evaluation: 06:42 - Subjective Subjective: Patient seen and examined at bedside. Per nursing no acute events occurred overnight. The patient was started on Precedex drip this morning. ROS unobtainable due to current clinical condition. Objective - Vital Signs/Intake and Output Vital Signs (last 24 hours): Temp Pulse Resp BP Pulse Ox 97.4 F L 72 24 144/73 100 03/16/17 06:00 03/16/17 07:20 03/16/17 07:34 03/16/17 07:15 03/16/17 07:34 Intake and Output: 03/16/17 03/16/17 06:59 18:59 Intake Total 2443.000 130 Output Total 6610 Balance -4167.000 130 - Medications Medications: Current Medications Albuterol/Ipratropium (Duoneb 3 Mg/0.5 Mg (3 Ml) Ud) 3 ml IH Q2H PRN PRN Reason: Shortness of Breath Last Admin: 03/13/17 15:45 Dose: 3 ml Albuterol/Ipratropium (Duoneb 3 Mg/0.5 Mg (3 Ml) Ud) 3 ml IH [id number] [facility] Last Admin: 03/16/17 07:22 Dose: 3 ml Chlorhexidine Gluconate (Peridex) 15 ml PO BID [facility] Last Admin: 03/15/17 17:08 Dose: 15 ml Hydrocortisone Sodium Succinate (Solu-Cortef) 50 mg IVP Q8 [facility] Last Admin: 03/15/17 22:54 Dose: 50 mg NOREPINEPHRINE BIT/0.9 % NACL (Levophed 4 Mg/ 250 Ml Ns Premixed) 4 mg in 250 mls @ 22.5 mls/hr IV .Q11H7M PRN; Protocol; 6 MCG/MIN PRN Reason: TITRATE PER MD ORDER Last Titration: 03/12/17 19:00 Dose: 0 mcg/min, 0 mls/hr Epinephrine HCl 1 mg/ Sodium (Chloride) 51 mls @ 3.06 mls/hr IV .[id number] PRN; Protocol; 1 MCG/MIN PRN Reason: TITRATE PER MD ORDER Last Titration: 03/12/17 19:00 Dose: Infused Vancomycin HCl (Vancomycin 1gm) 1 gm in 250 mls @ 167 mls/hr IVPB DAILY [facility] PRN Reason: Protocol Last Admin: 03/15/17 13:33 Dose: 167 mls/hr Propofol (Diprivan) 1,000 mg in 100 mls @ 3.674 mls/hr IV .Q24H PRN; Protocol; 5 MCG/KG/MIN PRN Reason: TITRATE PER MD ORDER Last Admin: 03/16/17 08:02 Dose: 35 mcg/kg/min, 25.719 mls/hr Cisatracurium Besylate 100 mg/ (Sodium Chloride) 260 mls @ 1.91 mls/hr IV .Q24H PRN; Protocol; 0.1 MCG/KG/MIN PRN Reason: TITRATE PER MD ORDER Last Admin: 03/12/17 22:32 Dose: 0.5 mcg/kg/min, 9.55 mls/hr Levetiracetam 1,000 mg/ Sodium (Chloride) 110 mls @ 460 mls/hr IV Q12 [facility] Last Admin: 03/15/17 22:52 Dose: 460 mls/hr Levofloxacin/Dextrose (Levaquin 250mg) 250 mg in 50 mls @ 50 mls/hr IVPB DAILY [facility] Last Admin: 03/15/17 10:14 Dose: 50 mls/hr Potassium Chloride 40 meq/ (Sodium Chloride) 1,020 mls @ 100 mls/hr IV .[id number] [facility] Last Admin: 03/16/17 06:37 Dose: 100 mls/hr Cefepime HCl (Maxipime 1gm) 1 gm in 100 mls @ 100 mls/hr IVPB Q12H [facility] PRN Reason: Protocol Last Admin: 03/16/17 02:14 Dose: 100 mls/hr Fentanyl Citrate (Fentanyl Citrate/Sodium Chloride 1 Mg/100 Ml) 1,000 mcg in 100 mls @ 15 mls/hr IV .Q6H40M PRN; Protocol; 150 MCG/HR PRN Reason: TITRATE PER MD ORDER Last Admin: 03/16/17 10:35 Dose: 200 mcg/hr, 20 mls/hr Dexmedetomidine HCl (Precedex 4 Mcg/Ml (100 Ml)) 400 mcg in 100 mls @ 5.67 mls/ hr IV .[id number] PRN; Protocol; 0.2 MCG/KG/HR PRN Reason: Sedation Last Admin: 03/16/17 07:59 Dose: 0.2 mcg/kg/hr, 5.67 mls/hr Potassium Chloride (Potassium Chloride 20 Meq/100 Ml) 20 meq in 100 mls @ 50 mls/hr IVPB Q2H [facility] Stop: 03/16/17 12:14 Last Admin: 03/16/17 08:57 Dose: 50 mls/hr Pantoprazole Sodium (Protonix Inj) 40 mg IVP DAILY [facility] Last Admin: 03/15/17 10:15 Dose: 40 mg - Labs Labs: 03/16/17 05:30 03/16/17 05:30 PT 11.6 Seconds (9.9-11.8) 03/15/17 06:10 INR 1.07 (0.93-1.08) 03/15/17 06:10 APTT 25.5 Seconds (23.7-30.8) 03/15/17 06:10 - Head Exam Head Exam: ATRAUMATIC, NORMAL INSPECTION, NORMOCEPHALIC - Eye Exam Eye Exam: PERRL Pupil Exam: PERRL - ENT Exam ENT Exam: Mucous Membranes Moist, Normal Exam - Neck Exam Neck Exam: absent: Lymphadenopathy, Thyromegaly - Respiratory Exam Respiratory Exam: Clear to Ausculation Bilateral, NORMAL BREATHING PATTERN - Cardiovascular Exam Cardiovascular Exam: REGULAR RHYTHM, RRR, +S1, +S2. absent: Gallop, Rubs - GI/Abdominal Exam GI & Abdominal Exam: Soft, Normal Bowel Sounds. absent: Guarding, Rigid, Tenderness, Hyperactive Bowel Sounds - Neurological Exam Neurological Exam: Altered - Skin Skin Exam: Dry, Intact Assessment and Plan - Assessment and Plan (Free Text) Assessment: 36yo male with past medical history of substance abuse, depression, anxiety, hypertension presents with cardiac arrest secondary to drug overdose. Plan: Neuro: -Patient intubated and unresponsive on no sedative medication -Continue to Maintain temp ~92-94F -Neurochecks q2h -Urine toxicology positive for opiates, barbiturates and benzos -CT Head (-). Seen by Neurology. EEG completed. Will f/u with rec's tomorrow. -Patient sedation cut down today initially, however respiration rate was irregular and accelerated. Sedated. Will continue to taper FiO2 down as tolerated and continued sedation. -Continue Seizure precautions -Neurology rec's appreciated. EEG showed diffuse slowing throughout the recording, consistent with bilateral cerebral dysfunction. No evidence of epileptiform activity. Precedex drip started. -Neuro status hard to determine due to sedation. Will reassess once sedation is weaned off. Cardio: -Continue Fentanyl, propofol, Cisatracurium, and [place] with goal MAP > 70 -Troponin negative x1 and one indeterminate results (.08). -EKG reviewed; atrial fibrillation with slow ventricular response (51bpm), nonspecific intraventricular block -F/U with Cardiology recs. Pulm: -ABG and CXR reviewed -patient pO2 on ABG this morning improving. Patient's FiO2 cut down to 50%. Will monitor closely. -Continue serial CXR and ABG. GI: -NPO -NGT -GI prophylaxis with protonix Renal: -Continue 1/2 NS w/40meq KCL @ 100cc/hr. -Will continue to monitor and treat electrolyte abnormalities as indicated -Monitor I's and O's Endo: -Fingersticks q2h -Maintain euglycemia between 140-180's -Stress dose steroids with solu-kiki 100mg q8h ID: -Blood and urine cultures drawn. No growth in blood and urine cultures after 4 days. Will f/u with final results tomorrow. WBC count increased to 20.1 today. Could be secondary to steroid use. -Continue with levaquin and vancomycin. Will monitor closely. GI/DVT Prophylaxis: Protonix/SCD's <Raheel Espitia - Last Filed: 03/16/17 19:00> Objective - Vital Signs/Intake and Output Vital Signs (last 24 hours): Temp Pulse Resp BP Pulse Ox 97.5 F L 72 24 118/61 100 03/16/17 18:00 03/16/17 18:00 03/16/17 07:34 03/16/17 12:30 03/16/17 07:34 Intake and Output: 03/16/17 03/16/17 06:59 18:59 Intake Total 2443.000 430 Output Total 6610 Balance -4167.000 430 - Medications Medications: Current Medications Albuterol/Ipratropium (Duoneb 3 Mg/0.5 Mg (3 Ml) Ud) 3 ml IH Q2H PRN PRN Reason: Shortness of Breath Last Admin: 03/13/17 15:45 Dose: 3 ml Albuterol/Ipratropium (Duoneb 3 Mg/0.5 Mg (3 Ml) Ud) 3 ml IH [id number] [facility] Last Admin: 03/16/17 13:15 Dose: 3 ml Chlorhexidine Gluconate (Peridex) 15 ml PO BID [facility] Last Admin: 03/16/17 11:32 Dose: 15 ml Hydrocortisone Sodium Succinate (Solu-Cortef) 50 mg IVP Q8 [facility] Last Admin: 03/16/17 17:28 Dose: 50 mg NOREPINEPHRINE BIT/0.9 % NACL (Levophed 4 Mg/ 250 Ml Ns Premixed) 4 mg in 250 mls @ 22.5 mls/hr IV .Q11H7M PRN; Protocol; 6 MCG/MIN PRN Reason: TITRATE PER MD ORDER Last Titration: 03/12/17 19:00 Dose: 0 mcg/min, 0 mls/hr Epinephrine HCl 1 mg/ Sodium (Chloride) 51 mls @ 3.06 mls/hr IV .[id number] PRN; Protocol; 1 MCG/MIN PRN Reason: TITRATE PER MD ORDER Last Titration: 03/12/17 19:00 Dose: Infused Vancomycin HCl (Vancomycin 1gm) 1 gm in 250 mls @ 167 mls/hr IVPB DAILY [facility] PRN Reason: Protocol Last Admin: 03/16/17 13:57 Dose: 167 mls/hr Propofol (Diprivan) 1,000 mg in 100 mls @ 3.674 mls/hr IV .Q24H PRN; Protocol; 5 MCG/KG/MIN PRN Reason: TITRATE PER MD ORDER Last Admin: 03/16/17 18:03 Dose: 35 mcg/kg/min, 25.719 mls/hr Cisatracurium Besylate 100 mg/ (Sodium Chloride) 260 mls @ 1.91 mls/hr IV .Q24H PRN; Protocol; 0.1 MCG/KG/MIN PRN Reason: TITRATE PER MD ORDER Last Admin: 03/12/17 22:32 Dose: 0.5 mcg/kg/min, 9.55 mls/hr Levetiracetam 1,000 mg/ Sodium (Chloride) 110 mls @ 460 mls/hr IV Q12 [facility] Last Admin: 03/16/17 15:27 Dose: 460 mls/hr Levofloxacin/Dextrose (Levaquin 250mg) 250 mg in 50 mls @ 50 mls/hr IVPB DAILY [facility] Last Admin: 03/16/17 17:03 Dose: 50 mls/hr Potassium Chloride 40 meq/ (Sodium Chloride) 1,020 mls @ 100 mls/hr IV .[id number] [facility] Last Admin: 03/16/17 06:37 Dose: 100 mls/hr Cefepime HCl (Maxipime 1gm) 1 gm in 100 mls @ 100 mls/hr IVPB Q12H [facility] PRN Reason: Protocol Last Admin: 03/16/17 17:03 Dose: 100 mls/hr Fentanyl Citrate (Fentanyl Citrate/Sodium Chloride 1 Mg/100 Ml) 1,000 mcg in 100 mls @ 15 mls/hr IV .Q6H40M PRN; Protocol; 150 MCG/HR PRN Reason: TITRATE PER MD ORDER Last Admin: 03/16/17 10:35 Dose: 200 mcg/hr, 20 mls/hr Dexmedetomidine HCl (Precedex 4 Mcg/Ml (100 Ml)) 400 mcg in 100 mls @ 5.67 mls/ hr IV .[id number] PRN; Protocol; 0.2 MCG/KG/HR PRN Reason: Sedation Last Admin: 03/16/17 17:19 Dose: 1 mcg/kg/hr, 28.35 mls/hr Potassium Chloride (Potassium Chloride 20 Meq/100 Ml) 20 meq in 100 mls @ 50 mls/hr IVPB Q2H [facility] Stop: 03/16/17 20:59 Last Admin: 03/16/17 17:05 Dose: 50 mls/hr Pantoprazole Sodium (Protonix Inj) 40 mg IVP DAILY [facility] Last Admin: 03/16/17 12:35 Dose: 40 mg - Labs Labs: 03/16/17 05:30 03/16/17 16:26 PT 11.6 Seconds (9.9-11.8) 03/15/17 06:10 INR 1.07 (0.93-1.08) 03/15/17 06:10 APTT 25.5 Seconds (23.7-30.8) 03/15/17 06:10 Attending/Attestation - Attestation I have personally seen and examined this patient.: Yes I have fully participated in the care of the patient.: Yes I have reviewed all pertinent clinical information, including history, physical exam and plan: Yes Notes (Text): 03/16/17 18:58 36 year old male with past medical history of depression, anxiety, hypertension , and substance abuse who presented with cardiac arrest secondary to suspected drug overdose. Urine drug screen was positive for opiates, barbituates and benzodiazepines. He is currently intubated on sedation. Continue with vent management and weaning trials as per manager delivery. MRI brain was done today which does show signs of anoxic injury. EEG was repeated today. He was also found to have renal insufficiency for which nephrology is following. LFTs and renal function are improving. He is also on stress dose steroids and iv antibiotics. Leukocytosis noted possibly due to steroids. Family is at bedside and questions were answered. Raheel Espitia MD Hospitalist.
--- NOTE | 2017-03-16 11:26 | MRI ---
PROCEDURE: MRI BRAIN WITHOUT CONTRAST HISTORY: r/o anoxic injury s/p cardiac arrest x 3 COMPARISON: None. TECHNIQUE: Multiplanar, multisequence MR images of the brain were obtained without intravenous contrast enhancement. FINDINGS: HEMORRHAGE: None DWI: There is abnormal signal intensity in the thalamus bilaterally which is consistent with a history of anoxic injury. The findings are seen on image 13 of series 34 and 5. BRAIN PARENCHYMA: No mass effect or edema. No atrophy or chronic microvascular ischemic changes. VENTRICLES: Unremarkable. No hydrocephalus. CRANIUM: Unremarkable. ORBITS: Grossly unremarkable. PARANASAL SINUSES/MASTOIDS: Clear VASCULAR SYSTEM: Skull base flow voids intact. OTHER FINDINGS: None. IMPRESSION: Abnormal signal intensity in the thalamus bilaterally consistent with a history of anoxic injury.
[2017-03-16] MEDS: Chlorhexidine 0.12% Oral Sol 480 ml Bot PO SCH ×2 (11:32→18:44)
[2017-03-16] MEDS: Vancomycin 1gm in NS 250ml 1 GM/250 ML BAG IVPB SCH (13:57)
[2017-03-16] MEDS: levETIRAcetam 1,000 MG in Sodium Chloride 0.9% 100 ML IV SCH ×2 (15:27→21:22)
--- NOTE | 2017-03-16 16:43 | CP.CCUPN ---
CCU Subjective - Physician Review Events Since Last Encounter (Free Text): 03/16/17 16:37 36 y/o M w/ acute respiratory failure s/p cardiac arrest x 3. Overnight was not able to wean nimbex, will try again today. Vent settings improving. CCU Objective - Vital Signs / Intake & Output Intake and Output (Last 8hrs): Intake & Output 03/16/17 03/16/17 03/16/17 06:59 14:59 22:59 Intake Total 2069.000 230 Output Total 4010 Balance -194.000 230 Intake: IV 2069. 230 Femoral 276 Left Hand 1200 Right Femoral 316 Output: Urine 4010 Urethral ([place]) 4010 Other: # Bowel Movements 0 - Physical Exam Physical Exam Limitations: Positive for: Altered Mental Status Head: Positive for: Atraumatic, Normocephalic. Negative for: Ecchymosis, Abrasion, Laceration Pupils: Positive for: Other (Fixed dilated pupils) Extroacular Muscles: Positive for: Other (unable to assess, not moving eyes spontaneously, no avoidance of direct light challenge for PERRL assessment) Conjunctiva: Negative for: Injected, Icteric Mouth: Positive for: Moist Mucous Membranes, Normal Teeth, Other (ETT in place with bite guard). Negative for: Drooling Nose (External): Positive for: Atraumatic. Negative for: Abrasion, Contusion, Laceration Neck: Positive for: Normal Range of Motion, Trachea Midline. Negative for: JVD , Lymphadenopathy Respiratory/Chest: Positive for: Clear to Auscultation, Other (coarse breath sounds bilaterally) Cardiovascular: Positive for: Regular Rate and Rhythm, Normal S1, S2. Negative for: Murmurs, Irregular Rhythm, Tachycardic, Bradycardic Abdomen: Positive for: Distention (Abdomen mildly distended) Upper Extremity: Positive for: Normal Inspection. Negative for: Cyanosis, Edema , Normal ROM, NORMAL PULSES (faintly palpable radials +1), Swelling, Erythema, Deformity Lower Extremity: Positive for: Normal Inspection. Negative for: Edema, NORMAL PULSES (unable to palpate bilateral dorsalis pedis or posterior tibials), Cyanosis, Swelling, Erythema, Deformity Neurological: Positive for: Other (sedated and paralyzed, intubated). Negative for: GCS=15 (pre-paralytic administration, GCS 3 (E1 V1t M1)), CN II-XII Intact , Speech Normal, Motor Func Grossly Intact Skin: Positive for: Warm, Normal Color, Diaphoretic Psychiatric: Positive for: Other (sedated and paralyzed, unable to assess). Negative for: Alert, Oriented x 3, Normal Insight, Normal Concentration, Normal Affect, Normal Mood - Medications Active Medications: Active Medications Generic Name Dose Route Start Last Admin Trade Name Freq PRN Reason Stop Dose Admin Albuterol/Ipratropium 3 ml 03/13/17 15:07 03/13/17 15:45 Duoneb 3 Mg/0.5 Mg (3 Ml) Ud IH 3 ml Q2H PRN Administration Shortness of Breath Albuterol/Ipratropium 3 ml 03/13/17 20:00 03/16/17 13:15 Duoneb 3 Mg/0.5 Mg (3 Ml) Ud IH 3 ml [id number] [facility]Y Administration Chlorhexidine Gluconate 15 ml 03/13/17 10:00 03/16/17 11:32 Peridex PO 15 ml BID [facility] Administration Hydrocortisone Sodium Succinate 50 mg 03/15/17 11:41 03/15/17 22:54 Solu-Cortef IVP 50 mg Q8 [facility]Y Administration NOREPINEPHRINE BIT/0.9 % NACL 4 mg in 250 mls @ 22.5 mls/hr 03/11/17 23:55 19:00 Levophed 4 Mg/ 250 Ml Ns Premixed IV 0 mcg/min .Q11H7M PRN 0 mls/hr TITRATE PER MD ORDER Titration Protocol 6 MCG/MIN Epinephrine HCl 1 mg/ Sodium 51 mls @ 3.06 mls/hr 03/12/17 00:35 03/12/17 19: 00 Chloride IV Infused .[id number] PRN Titration TITRATE PER MD ORDER Protocol 1 MCG/MIN Vancomycin HCl 1 gm in 250 mls @ 167 mls/hr 03/12/17 10:00 03/16/17 13:57 Vancomycin 1gm IVPB 167 mls/hr DAILY [facility] Administration Protocol Propofol 1,000 mg in 100 mls @ 3.674 mls/hr 03/12/17 07:41 03/16/17 08:02 Diprivan IV 35 mcg/kg/min .Q24H PRN 25.719 mls/hr TITRATE PER MD ORDER Administration Protocol 5 MCG/KG/MIN Cisatracurium Besylate 100 mg/ 260 mls @ 1.91 mls/hr 03/12/17 07:52 03/12/17 22:32 Sodium Chloride IV 0.5 mcg/kg/min .Q24H PRN 9.55 mls/hr TITRATE PER MD ORDER Administration Protocol 0.1 MCG/KG/MIN Levetiracetam 1,000 mg/ Sodium 110 mls @ 460 mls/hr 03/12/17 22:00 03/16/17 15:27 Chloride IV 460 mls/hr Q12 [facility] Administration Levofloxacin/Dextrose 250 mg in 50 mls @ 50 mls/hr 03/14/17 11:45 03/15/17 10 :14 Levaquin 250mg IVPB 50 mls/hr DAILY [facility] Administration Potassium Chloride 40 meq/ 1,020 mls @ 100 mls/hr 03/15/17 11:00 03/16/17 06: 37 Sodium Chloride IV 100 mls/hr .[id number] [facility] Administration Cefepime HCl 1 gm in 100 mls @ 100 mls/hr 03/15/17 14:00 03/16/17 02:14 Maxipime 1gm IVPB 100 mls/hr Q12H [facility] Administration Protocol Fentanyl Citrate 1,000 mcg in 100 mls @ 15 mls/hr 03/16/17 05:41 03/16/17 10: 35 Fentanyl Citrate/Sodium Chloride 1 Mg/100 Ml IV 200 mcg/hr .Q6H40M PRN 20 mls/hr TITRATE PER MD ORDER Administration Protocol 150 MCG/HR Dexmedetomidine HCl 400 mcg in 100 mls @ 5.67 mls/hr 03/16/17 07:44 03/16/17 14:23 Precedex 4 Mcg/Ml (100 Ml) IV 1 mcg/kg/hr .[id number] PRN 28.35 mls/hr Sedation Titration Protocol 0.2 MCG/KG/HR Pantoprazole Sodium 40 mg 03/12/17 10:00 03/16/17 12:35 Protonix Inj IVP 40 mg DAILY [facility]UY Administration - Patient Studies Lab Studies: Microbiology Studies 03/12/17 06:40 Blood Culture - Preliminary Blood-Venous NO GROWTH AFTER 4 DAYS 03/12/17 06:00 Blood Culture - Preliminary Blood-Venous NO GROWTH AFTER 4 DAYS 03/15/17 12:10 Gram Stain - Final Sputum Sputum Culture - Final Lab Studies 03/16/17 03/16/17 03/16/17 Range/Units 16:07 05:35 05:30 WBC (4.5-11.0) 10^3/ul RBC (3.5-6.1) 10^6/uL Hgb (14.0-18.0) g/dL Hct (42.0-52.0) % MCV (80.0-105.0) fl MCH (25.0-35.0) pg MCHC (31.0-37.0) g/dl RDW (11.5-14.5) % Plt Count (120.0-450.0) 10^3/uL MPV (7.0-11.0) fl Gran % (50.0-68.0) % Lymph % (Auto) (22.0-35.0) % Parmer % (Auto) (1.0-6.0) % Eos % (Auto) (1.5-5.0) % Baso % (Auto) (0.0-3.0) % Gran # (1.4-6.5) Lymph # (1.2-3.4) Parmer # (0.1-0.6) Eos # (0.0-0.7) Baso # (0.0-2.0) K/mm3 pCO2 47 H (35-45) mm/Hg pO2 133.0 H (80-100) mm/Hg HCO3 25.4 (21-28) mmol/L ABG pH 7.34 L (7.35-7.45) ABG Total CO2 26.8 (22-28) mmol.L ABG O2 Saturation 99.1 H (95-98) % ABG O2 Content 14.5 L (15-23) ML/dl ABG Base Excess -0.7 (-2.0-3.0) mmol/L ABG Hemoglobin 10.5 L (11.7-17.4) g/dL ABG Carboxyhemoglobin 1.3 (0.5-1.5) % POC ABG HHb (Measured) 0.9 (0-5) % ABG Methemoglobin 1.0 (0.0-3.0) % ABG O2 Capacity 14.6 L (16-24) mL/dl Hgb O2 Saturation 96.8 (95.0-98.0) % FiO2 70.0 % Sodium 147 (132-148) mmol/L Potassium 3.0 L (3.6-5.0) mmol/L Chloride 108 (95-110) mmol/L Carbon Dioxide 25 (21-33) mmol/L Anion Gap 17 (10-20) BUN 57 H (7-21) mg/dL Creatinine 2.1 H (0.8-1.5) mg/dL Est GFR ( Amer) 43 Est GFR (Non-Af Amer) 36 POC Glucose (mg/dL) 106 (65-110) mg/dL Random Glucose 113 H (70-110) mg/dL Lactic Acid (0.7-2.1) mmol/L Calcium 8.5 (8.4-10.5) mg/dL Phosphorus 6.1 H (2.5-4.5) mg/dL Magnesium 2.0 (1.7-2.2) mg/dL Total Bilirubin 2.0 H (0.2-1.3) mg/dL AST 67 H (17-59) U/L ALT 185 H (7-56) U/L Alkaline Phosphatase 111 (38-126) U/L Total Protein 7.0 (5.8-8.3) g/dL Albumin 3.5 (3.0-4.8) g/dL Globulin 3.5 gm/dL Albumin/Globulin Ratio 1.0 L (1.1-1.8) Ur L.pneumophila Ag (NEGATIVE) 03/16/17 03/16/17 03/16/17 Range/Units 05:30 05:30 04:20 WBC 20.1 H (4.5-11.0) 10^3/ul RBC 3.46 L (3.5-6.1) 10^6/uL Hgb 9.9 L (14.0-18.0) g/dL Hct 29.4 L (42.0-52.0) % MCV 85.0 (80.0-105.0) fl MCH 28.6 (25.0-35.0) pg MCHC 33.7 (31.0-37.0) g/dl RDW 14.0 (11.5-14.5) % Plt Count 183 (120.0-450.0) 10^3/uL MPV 9.5 (7.0-11.0) fl Gran % 82.2 H (50.0-68.0) % Lymph % (Auto) 10.6 L (22.0-35.0) % Parmer % (Auto) 6.6 H (1.0-6.0) % Eos % (Auto) 0.3 L (1.5-5.0) % Baso % (Auto) 0.3 (0.0-3.0) % Gran # 16.54 H (1.4-6.5) Lymph # 2.1 (1.2-3.4) Parmer # 1.3 H (0.1-0.6) Eos # 0.1 (0.0-0.7) Baso # 0.06 (0.0-2.0) K/mm3 pCO2 (35-45) mm/Hg pO2 (80-100) mm/Hg HCO3 (21-28) mmol/L ABG pH (7.35-7.45) ABG Total CO2 (22-28) mmol.L ABG O2 Saturation (95-98) % ABG O2 Content (15-23) ML/dl ABG Base Excess (-2.0-3.0) mmol/L ABG Hemoglobin (11.7-17.4) g/dL ABG Carboxyhemoglobin (0.5-1.5) % POC ABG HHb (Measured) (0-5) % ABG Methemoglobin (0.0-3.0) % ABG O2 Capacity (16-24) mL/dl Hgb O2 Saturation (95.0-98.0) % FiO2 % Sodium (132-148) mmol/L Potassium (3.6-5.0) mmol/L Chloride (95-110) mmol/L Carbon Dioxide (21-33) mmol/L Anion Gap (10-20) BUN (7-21) mg/dL Creatinine (0.8-1.5) mg/dL Est GFR ( Amer) Est GFR (Non-Af Amer) POC Glucose (mg/dL) 134 H (65-110) mg/dL Random Glucose (70-110) mg/dL Lactic Acid 1.0 (0.7-2.1) mmol/L Calcium (8.4-10.5) mg/dL Phosphorus (2.5-4.5) mg/dL Magnesium (1.7-2.2) mg/dL Total Bilirubin (0.2-1.3) mg/dL AST (17-59) U/L ALT (7-56) U/L Alkaline Phosphatase (38-126) U/L Total Protein (5.8-8.3) g/dL Albumin (3.0-4.8) g/dL Globulin gm/dL Albumin/Globulin Ratio (1.1-1.8) Ur L.pneumophila Ag (NEGATIVE) 03/15/17 03/15/17 03/15/17 Range/Units 23:32 20:01 18:24 WBC (4.5-11.0) 10^3/ul RBC (3.5-6.1) 10^6/uL Hgb (14.0-18.0) g/dL Hct (42.0-52.0) % MCV (80.0-105.0) fl MCH (25.0-35.0) pg MCHC (31.0-37.0) g/dl RDW (11.5-14.5) % Plt Count (120.0-450.0) 10^3/uL MPV (7.0-11.0) fl Gran % (50.0-68.0) % Lymph % (Auto) (22.0-35.0) % Parmer % (Auto) (1.0-6.0) % Eos % (Auto) (1.5-5.0) % Baso % (Auto) (0.0-3.0) % Gran # (1.4-6.5) Lymph # (1.2-3.4) Parmer # (0.1-0.6) Eos # (0.0-0.7) Baso # (0.0-2.0) K/mm3 pCO2 (35-45) mm/Hg pO2 (80-100) mm/Hg HCO3 (21-28) mmol/L ABG pH (7.35-7.45) ABG Total CO2 (22-28) mmol.L ABG O2 Saturation (95-98) % ABG O2 Content (15-23) ML/dl ABG Base Excess (-2.0-3.0) mmol/L ABG Hemoglobin (11.7-17.4) g/dL ABG Carboxyhemoglobin (0.5-1.5) % POC ABG HHb (Measured) (0-5) % ABG Methemoglobin (0.0-3.0) % ABG O2 Capacity (16-24) mL/dl Hgb O2 Saturation (95.0-98.0) % FiO2 % Sodium (132-148) mmol/L Potassium (3.6-5.0) mmol/L Chloride (95-110) mmol/L Carbon Dioxide (21-33) mmol/L Anion Gap (10-20) BUN (7-21) mg/dL Creatinine (0.8-1.5) mg/dL Est GFR ( Amer) Est GFR (Non-Af Amer) POC Glucose (mg/dL) 114 H 132 H (65-110) mg/dL Random Glucose (70-110) mg/dL Lactic Acid (0.7-2.1) mmol/L Calcium (8.4-10.5) mg/dL Phosphorus (2.5-4.5) mg/dL Magnesium (1.7-2.2) mg/dL Total Bilirubin (0.2-1.3) mg/dL AST (17-59) U/L ALT (7-56) U/L Alkaline Phosphatase (38-126) U/L Total Protein (5.8-8.3) g/dL Albumin (3.0-4.8) g/dL Globulin gm/dL Albumin/Globulin Ratio (1.1-1.8) Ur L.pneumophila Ag Negative (NEGATIVE) 03/15/17 03/15/17 03/15/17 Range/Units 16:48 11:28 07:55 WBC (4.5-11.0) 10^3/ul RBC (3.5-6.1) 10^6/uL Hgb (14.0-18.0) g/dL Hct (42.0-52.0) % MCV (80.0-105.0) fl MCH (25.0-35.0) pg MCHC (31.0-37.0) g/dl RDW (11.5-14.5) % Plt Count (120.0-450.0) 10^3/uL MPV (7.0-11.0) fl Gran % (50.0-68.0) % Lymph % (Auto) (22.0-35.0) % Parmer % (Auto) (1.0-6.0) % Eos % (Auto) (1.5-5.0) % Baso % (Auto) (0.0-3.0) % Gran # (1.4-6.5) Lymph # (1.2-3.4) Parmer # (0.1-0.6) Eos # (0.0-0.7) Baso # (0.0-2.0) K/mm3 pCO2 (35-45) mm/Hg pO2 (80-100) mm/Hg HCO3 (21-28) mmol/L ABG pH (7.35-7.45) ABG Total CO2 (22-28) mmol.L ABG O2 Saturation (95-98) % ABG O2 Content (15-23) ML/dl ABG Base Excess (-2.0-3.0) mmol/L ABG Hemoglobin (11.7-17.4) g/dL ABG Carboxyhemoglobin (0.5-1.5) % POC ABG HHb (Measured) (0-5) % ABG Methemoglobin (0.0-3.0) % ABG O2 Capacity (16-24) mL/dl Hgb O2 Saturation (95.0-98.0) % FiO2 % Sodium (132-148) mmol/L Potassium (3.6-5.0) mmol/L Chloride (95-110) mmol/L Carbon Dioxide (21-33) mmol/L Anion Gap (10-20) BUN (7-21) mg/dL Creatinine (0.8-1.5) mg/dL Est GFR ( Amer) Est GFR (Non-Af Amer) POC Glucose (mg/dL) 119 H 128 H 126 H (65-110) mg/dL Random Glucose (70-110) mg/dL Lactic Acid (0.7-2.1) mmol/L Calcium (8.4-10.5) mg/dL Phosphorus (2.5-4.5) mg/dL Magnesium (1.7-2.2) mg/dL Total Bilirubin (0.2-1.3) mg/dL AST (17-59) U/L ALT (7-56) U/L Alkaline Phosphatase (38-126) U/L Total Protein (5.8-8.3) g/dL Albumin (3.0-4.8) g/dL Globulin gm/dL Albumin/Globulin Ratio (1.1-1.8) Ur L.pneumophila Ag (NEGATIVE) Laboratory Results - last 24 hr 03/15/17 03/15/17 03/15/17 07:55 11:28 16:48 WBC RBC Hgb Hct MCV MCH MCHC RDW Plt Count MPV Gran % Lymph % (Auto) Parmer % (Auto) Eos % (Auto) Baso % (Auto) Gran # Lymph # Parmer # Eos # Baso # pCO2 pO2 HCO3 ABG pH ABG Total CO2 ABG O2 Saturation ABG O2 Content ABG Base Excess ABG Hemoglobin ABG Carboxyhemoglobin POC ABG HHb (Measured) ABG Methemoglobin ABG O2 Capacity Hgb O2 Saturation FiO2 Sodium Potassium Chloride Carbon Dioxide Anion Gap BUN Creatinine Est GFR ( Amer) Est GFR (Non-Af Amer) POC Glucose (mg/dL) 126 H 128 H 119 H Random Glucose Lactic Acid Calcium Phosphorus Magnesium Total Bilirubin AST ALT Alkaline Phosphatase Total Protein Albumin Globulin Albumin/Globulin Ratio Ur L.pneumophila Ag 03/15/17 03/15/17 03/15/17 18:24 20:01 23:32 WBC RBC Hgb Hct MCV MCH MCHC RDW Plt Count MPV Gran % Lymph % (Auto) Parmer % (Auto) Eos % (Auto) Baso % (Auto) Gran # Lymph # Parmer # Eos # Baso # pCO2 pO2 HCO3 ABG pH ABG Total CO2 ABG O2 Saturation ABG O2 Content ABG Base Excess ABG Hemoglobin ABG Carboxyhemoglobin POC ABG HHb (Measured) ABG Methemoglobin ABG O2 Capacity Hgb O2 Saturation FiO2 Sodium Potassium Chloride Carbon Dioxide Anion Gap BUN Creatinine Est GFR ( Amer) Est GFR (Non-Af Amer) POC Glucose (mg/dL) 132 H 114 H Random Glucose Lactic Acid Calcium Phosphorus Magnesium Total Bilirubin AST ALT Alkaline Phosphatase Total Protein Albumin Globulin Albumin/Globulin Ratio Ur L.pneumophila Ag Negative 03/16/17 03/16/1703/16/17 04:20 05:30 05:30 WBC 20.1 H RBC 3.46 L Hgb 9.9 L Hct 29.4 L MCV 85.0 MCH 28.6 MCHC 33.7 RDW 14.0 Plt Count 183 MPV 9.5 Gran % 82.2 H Lymph % (Auto) 10.6 L Parmer % (Auto) 6.6 H Eos % (Auto) 0.3 L Baso % (Auto) 0.3 Gran # 16.54 H Lymph # 2.1 Parmer # 1.3 H Eos # 0.1 Baso # 0.06 pCO2 pO2 HCO3 ABG pH ABG Total CO2 ABG O2 Saturation ABG O2 Content ABG Base Excess ABG Hemoglobin ABG Carboxyhemoglobin POC ABG HHb (Measured) ABG Methemoglobin ABG O2 Capacity Hgb O2 Saturation FiO2 Sodium Potassium Chloride Carbon Dioxide Anion Gap BUN Creatinine Est GFR ( Amer) Est GFR (Non-Af Amer) POC Glucose (mg/dL) 134 H Random Glucose Lactic Acid 1.0 Calcium Phosphorus Magnesium Total Bilirubin AST ALT Alkaline Phosphatase Total Protein Albumin Globulin Albumin/Globulin Ratio Ur L.pneumophila Ag 03/16/17 03/16/17 03/16/17 05:30 05:35 16:07 WBC RBC Hgb Hct MCV MCH MCHC RDW Plt Count MPV Gran % Lymph % (Auto) Parmer % (Auto) Eos % (Auto) Baso % (Auto) Gran # Lymph # Parmer # Eos # Baso # pCO2 47 H pO2 133.0 H HCO3 25.4 ABG pH 7.34 L ABG Total CO2 26.8 ABG O2 Saturation 99.1 H ABG O2 Content 14.5 L ABG Base Excess -0.7 ABG Hemoglobin 10.5 L ABG Carboxyhemoglobin 1.3 POC ABG HHb (Measured) 0.9 ABG Methemoglobin 1.0 ABG O2 Capacity 14.6 L Hgb O2 Saturation 96.8 FiO2 70.0 Sodium 147 Potassium 3.0 L Chloride 108 Carbon Dioxide 25 Anion Gap 17 BUN 57 H Creatinine 2.1 H Est GFR ( Amer) 43 Est GFR (Non-Af Amer) 36 POC Glucose (mg/dL) 106 Random Glucose 113 H Lactic Acid Calcium 8.5 Phosphorus 6.1 H Magnesium 2.0 Total Bilirubin 2.0 H AST 67 H ALT 185 H Alkaline Phosphatase 111 Total Protein 7.0 Albumin 3.5 Globulin 3.5 Albumin/Globulin Ratio 1.0 L Ur L.pneumophila Ag Fingerstick Blood Sugar Results: 132 Review of Systems - Review of Systems Systems not reviewed;Unavailable: Altered Mental Status Critical Care Progress Note - Ventilator Checklist Daily Assessment of Readiness to Wean: Yes Daily Spontaneous Breathing Trial: Yes PUD Prophalyxis: Yes DVT Prophylaxis: Yes Oral Care with Chlorhexidine Gluconate {CHG}: Yes - Nutrition Nutrition: Nutrition Category Date Time Status NPO Diet [DIET] Diets 03/14/17 Breakfast Ordered Assessment/Plan - Assessment and Plan (Free Text) Assessment: 36 y/o M w/ resolving ARDS s/p OD polysubstance abuse. Intubated and sedated/ paralyzed . Vent setting titrating down to keep PAO2> 60 PH> 7.3 MRi done today which shows signs of anoxic brain injury . EEg repeated today. Once off sedation and paralytics , neuro exam to be done to prognosticate. Sedation to be weaned as tolerated . Abx course x 7 days to be completed . No fevers or hypotension noted. DVT P PPI CC time 65 min case d/w family at bedside extensively.
[2017-03-16] MEDS: levoFLOXacin 250 mg in D5W 250 MG/50 ML BAG IVPB SCH (17:03)
[2017-03-16 18:12] LABS: ARTERIAL BLOOD GAS HCO3 23.6 mmol/L (21-28); ARTERIAL BLOOD GAS O2 CAPACITY 12.9 mL/dl (16-24); ARTERIAL BLOOD GAS O2 CONTENT 12.4 ML/dl (15-23); ARTERIAL BLOOD GAS PH 7.45 (7.35-7.45); ARTERIAL BLOOD HGB O2 SAT 93.7 % (95.0-98.0); CARBOXYHEMOGLOBIN 1.6 % (0.5-1.5); HHB 3.9 % (0-5); METHEMOGLOBIN 0.9 % (0.0-3.0)
--- NOTE | 2017-03-16 23:26 | CP.PCM.PN ---
Subjective - Date & Time of Evaluation Date of Evaluation: 03/16/17 Time of Evaluation: 10:00 - Subjective Subjective: Still unable to get patient off paralytic due to tachypnea and desaturation; Objective - Vital Signs/Intake and Output Vital Signs (last 24 hours): Temp Pulse Resp BP Pulse Ox 97.5 F L 72 24 118/61 100 03/16/17 18:00 03/16/17 18:00 03/16/17 07:34 03/16/17 12:30 03/16/17 07:34 Intake and Output: 03/16/17 03/17/17 18:59 06:59 Intake Total 625 2685 Output Total 3100 Balance 625 -415 - Medications Medications: Current Medications Albuterol/Ipratropium (Duoneb 3 Mg/0.5 Mg (3 Ml) Ud) 3 ml IH Q2H PRN PRN Reason: Shortness of Breath Last Admin: 03/13/17 15:45 Dose: 3 ml Albuterol/Ipratropium (Duoneb 3 Mg/0.5 Mg (3 Ml) Ud) 3 ml IH [id number] [facility] Last Admin: 03/16/17 20:00 Dose: 3 ml Chlorhexidine Gluconate (Peridex) 15 ml PO BID [facility] Last Admin: 03/16/17 18:44 Dose: 15 ml Hydrocortisone Sodium Succinate (Solu-Cortef) 50 mg IVP Q8 [facility] Last Admin: 03/16/17 21:16 Dose: 50 mg NOREPINEPHRINE BIT/0.9 % NACL (Levophed 4 Mg/ 250 Ml Ns Premixed) 4 mg in 250 mls @ 22.5 mls/hr IV .Q11H7M PRN; Protocol; 6 MCG/MIN PRN Reason: TITRATE PER MD ORDER Last Titration: 03/12/17 19:00 Dose: 0 mcg/min, 0 mls/hr Epinephrine HCl 1 mg/ Sodium (Chloride) 51 mls @ 3.06 mls/hr IV .[id number] PRN; Protocol; 1 MCG/MIN PRN Reason: TITRATE PER MD ORDER Last Titration: 03/12/17 19:00 Dose: Infused Vancomycin HCl (Vancomycin 1gm) 1 gm in 250 mls @ 167 mls/hr IVPB DAILY [facility]UY PRN Reason: Protocol Last Admin: 03/16/17 13:57 Dose: 167 mls/hr Propofol (Diprivan) 1,000 mg in 100 mls @ 3.674 mls/hr IV .Q24H PRN; Protocol; 5 MCG/KG/MIN PRN Reason: TITRATE PER MD ORDER Last Admin: 03/16/17 23:08 Dose: 35 mcg/kg/min, 25.719 mls/hr Cisatracurium Besylate 100 mg/ (Sodium Chloride) 260 mls @ 1.91 mls/hr IV .Q24H PRN; Protocol; 0.1 MCG/KG/MIN PRN Reason: TITRATE PER MD ORDER Last Titration: 03/16/17 17:30 Dose: 0 mcg/kg/min, 0 mls/hr Levetiracetam 1,000 mg/ Sodium (Chloride) 110 mls @ 460 mls/hr IV Q12 [facility] Last Admin: 03/16/17 21:22 Dose: 460 mls/hr Levofloxacin/Dextrose (Levaquin 250mg) 250 mg in 50 mls @ 50 mls/hr IVPB DAILY [facility] Last Admin: 03/16/17 17:03 Dose: 50 mls/hr Potassium Chloride 40 meq/ (Sodium Chloride) 1,020 mls @ 100 mls/hr IV .[id number] [facility] Last Admin: 03/16/17 06:37 Dose: 100 mls/hr Cefepime HCl (Maxipime 1gm) 1 gm in 100 mls @ 100 mls/hr IVPB Q12H [facility] PRN Reason: Protocol Last Admin: 03/16/17 17:03 Dose: 100 mls/hr Fentanyl Citrate (Fentanyl Citrate/Sodium Chloride 1 Mg/100 Ml) 1,000 mcg in 100 mls @ 15 mls/hr IV .Q6H40M PRN; Protocol; 150 MCG/HR PRN Reason: TITRATE PER MD ORDER Last Titration: 03/16/17 23:17 Dose: 100 mcg/hr, 10 mls/hr Dexmedetomidine HCl (Precedex 4 Mcg/Ml (100 Ml)) 400 mcg in 100 mls @ 5.67 mls/ hr IV .[id number] PRN; Protocol; 0.2 MCG/KG/HR PRN Reason: Sedation Last Admin: 03/16/17 20:30 Dose: 1 mcg/kg/hr, 28.35 mls/hr Acetaminophen (Ofirmev) 1,000 mg in 100 mls @ 400 mls/hr IVPB Q6H PRN PRN Reason: Temperature Stop: 03/18/17 21:55 Last Admin: 03/16/17 22:06 Dose: 400 mls/hr Pantoprazole Sodium (Protonix Inj) 40 mg IVP DAILY [facility] Last Admin: 03/16/17 12:35 Dose: 40 mg - Labs Labs: 03/16/17 05:30 03/16/17 16:26 PT 11.6 Seconds (9.9-11.8) 03/15/17 06:10 INR 1.07 (0.93-1.08) 03/15/17 06:10 APTT 25.5 Seconds (23.7-30.8) 03/15/17 06:10 - Constitutional Appears: No Acute Distress - Head Exam Head Exam: NORMAL INSPECTION - Eye Exam Eye Exam: absent: Scleral icterus - ENT Exam ENT Exam: Mucous Membranes Moist - Respiratory Exam Additional comments: congested sounds; - Cardiovascular Exam Cardiovascular Exam: RRR, +S1, +S2 - GI/Abdominal Exam GI & Abdominal Exam: Soft. absent: Distended - Extremities Exam Additional comments: no leg edema; - Neurological Exam Additional comments: sedated; not responsive to noxious stimuli; - Skin Skin Exam: Warm. absent: Cyanosis Assessment and Plan (1) Acute renal failure Assessment & Plan: Resolving; in poluric phase of ATN recovery; polyuria seems to be improving; keeping 1/2NS at 100 cc/hr; Status: Acute (2) ARDS (adult respiratory distress syndrome) Assessment & Plan: With decreased FIO2 requirement but still needing to be paralyzed/sedated; will avoid aggressive IVF in order to help resp status; Status: Acute (3) Polyuria Assessment & Plan: see above; Status: Acute (4) Electrolyte imbalance Assessment & Plan: hypokalemia; replenish prn; continue KCl in IVF; Status: Acute
[2017-03-16 23:40] LABS: MAGNESIUM 1.9 mg/dL (1.7-2.2); POTASSIUM 3.6 mmol/L (3.6-5.0)
[2017-03-17] MEDS: Cefepime 1gm in NS 100ml 1 GM/100 ML BAG IVPB SCH ×2 (01:07→16:26)
[2017-03-17] MEDS: Propofol 10 mg/ml 1,000 MG/100 ML VIAL IV PRN ×5 (02:46→21:11)
[2017-03-17] MEDS: Potassium Chloride 40 MEQ in Sodium Chloride 0.45% 1,000 ML IV SCH ×4 (03:08→23:36)
[2017-03-17] MEDS: Albuterol-Ipratrop 3 mg / 0.5 (3 ml) UD IH SCH ×4 (03:18→20:15)
[2017-03-17] MEDS: Dexmedetomidine HCl 4mcg/ml 400 MCG/100 ML BOTTLE IV PRN ×5 (03:34→21:14)
--- NOTE | 2017-03-17 04:57 | CP.CCUPN ---
<Jerman Kilgore - Last Filed: 03/17/17 13:37> CCU Subjective - Physician Review Subjective (Free Text): 03/17/17 04:47 Patient seen and examined at bedside in the ICU. Remains intubated and sedated , but was able to be weaned off Nimbex paralytic yesterday afternoon, and remained off overnight, without becoming excessively tachypnic or desating. Fentanyl weaned, and Propofol sedation partially weaned overnight. No acute events overnight reported. Tolerated pressure support trial well yesterday. MRI yesterday showed signs of anoxic injury at thalamic region bilaterally. 03/17/17 12:18 While weaning remaining Propofol and Precedex, patient showed signs consistent with seizure activity. EEG was obtained and reviewed by Neurologist on case ( Dr. Rene), reports burst suppression as well as paroxysmal polymorphic delta waves which is consistent with seizure and poor prognosis. Patient placed back on high sedation with propofol. Family discussion had with Neurologist and Pulmonologist attendings present, explained poor prognosis to family, options of making comfort care vs proceeding with trach/PEG. wants 24 hours to think over, but is leaning towards Trach/PEG at this time. CCU Objective - Vital Signs / Intake & Output Vital Signs (Last 4 hours): Vital Signs Temp Pulse Resp BP Pulse Ox 03/17/17 04:23 97.9 F 03/17/17 04:20 78 97 03/17/17 04:15 74 43 H 131/56 L 98 03/17/17 04:10 65 100 03/17/17 04:00 83 141/74 97 03/17/17 03:50 59 L 100 03/17/17 03:45 66 122/75 100 03/17/17 03:40 61 100 03/17/17 03:31 51 L 121/49 L 99 03/17/17 03:30 50 L 100 03/17/17 03:20 44 L 98 03/17/17 03:15 43 L 129/66 98 03/17/17 03:10 46 L 96 03/17/17 03:00 45 L 123/55 L 98 03/17/17 02:50 44 L 99 03/17/17 02:45 43 L 133/56 L 99 03/17/17 02:40 43 L 99 03/17/17 02:30 44 L 125/59 L 99 03/17/17 02:20 44 L 99 03/17/17 02:10 48 L 99 03/17/17 02:00 48 L 130/56 L 99 03/17/17 01:50 51 L 99 03/17/17 01:45 49 L 134/54 L 99 03/17/17 01:40 52 L 98 03/17/17 01:30 53 L 128/59 L 97 03/17/17 01:20 54 L 98 03/17/17 01:15 51 L 131/60 98 03/17/17 01:10 57 L 98 03/17/17 01:00 57 L 138/60 98 03/17/17 00:50 58 L 99 Intake and Output (Last 8hrs): Intake & Output 03/16/17 03/16/17 03/17/17 14:59 22:59 06:59 Intake Total 390 2920 235 Output Total 3100 Balance 390 -180 235 Weight 113 kg Intake: IV 390 2420 235 Right Femoral 2000 Other 500 Output: Urine 3100 Urethral ([place]) 3100 Stool 0 Urethral ([place]) 0 - Physical Exam Head: Positive for: Atraumatic, Normocephalic. Negative for: Ecchymosis, Abrasion, Laceration Pupils: Positive for: Other (pinpoint pupils, not reactive to direct light challenge) Extroacular Muscles: Positive for: Other (unable to assess, not moving eyes spontaneously, no avoidance of direct light challenge for PERRL assessment) Conjunctiva: Negative for: Injected, Icteric Mouth: Positive for: Moist Mucous Membranes, Other (ETT in place with bite guard ). Negative for: Drooling Nose (External): Positive for: Atraumatic, Other (NGT in place). Negative for: Abrasion, Contusion, Laceration Neck: Positive for: Trachea Midline. Negative for: JVD, Lymphadenopathy Respiratory/Chest: Positive for: Clear to Auscultation, Good Air Exchange, Rales (mild-moderate rales in all breath [place]). Negative for: Accessory Muscle Use, Wheezes, Tachypneic Cardiovascular: Positive for: Regular Rate and Rhythm, Normal S1, S2. Negative for: Murmurs, Irregular Rhythm, Tachycardic, Bradycardic Abdomen: Negative for: Distention (obese but not distended, soft on palpation), Normal Bowel Sounds (diminished bowel sounds), Mass/Organomegaly Upper Extremity: Positive for: Normal Inspection. Negative for: Cyanosis, Edema , Normal ROM, NORMAL PULSES (faintly palpable radials +1), Swelling, Erythema, Deformity Lower Extremity: Positive for: Normal Inspection. Negative for: Edema, NORMAL PULSES (unable to palpate bilateral dorsalis pedis or posterior tibials), Cyanosis, Swelling, Erythema, Deformity Neurological: Positive for: Other (intubated and sedated, now off paralytics for ~12 hrs). Negative for: GCS=15 (GCS 6 (E1 V1t M4)), CN II-XII Intact, Speech Normal, Motor Func Grossly Intact Skin: Positive for: Warm, Dry, Normal Color Psychiatric: Positive for: Other (sedated and intubated, unable to assess). Negative for: Alert, Oriented x 3, Normal Insight, Normal Concentration, Normal Affect, Normal Mood - Medications Active Medications: Active Medications Generic Name Dose Route Start Last Admin Trade Name Freq PRN Reason Stop Dose Admin Albuterol/Ipratropium 3 ml 03/13/17 15:07 03/13/17 15:45 Duoneb 3 Mg/0.5 Mg (3 Ml) Ud IH 3 ml Q2H PRN Administration Shortness of Breath Albuterol/Ipratropium 3 ml 03/13/17 20:00 03/17/17 03:18 Duoneb 3 Mg/0.5 Mg (3 Ml) Ud IH 3 ml [id number] MARICHUY Administration Chlorhexidine Gluconate 15 ml 03/13/17 10:00 03/16/17 18:44 Peridex PO 15 ml BID MARICHUY Administration Hydrocortisone Sodium Succinate 50 mg 03/15/17 11:41 03/16/17 21:16 Solu-Cortef IVP 50 mg Q8 MARICHUY Administration NOREPINEPHRINE BIT/0.9 % NACL 4 mg in 250 mls @ 22.5 mls/hr 03/11/17 23:55 19:00 Levophed 4 Mg/ 250 Ml Ns Premixed IV 0 mcg/min .Q11H7M PRN 0 mls/hr TITRATE PER MD ORDER Titration Protocol 6 MCG/MIN Epinephrine HCl 1 mg/ Sodium 51 mls @ 3.06 mls/hr 03/12/17 00:35 03/12/17 19: 00 Chloride IV Infused .[id number] PRN Titration TITRATE PER MD ORDER Protocol 1 MCG/MIN Vancomycin HCl 1 gm in 250 mls @ 167 mls/hr 03/12/17 10:00 03/16/17 13:57 Vancomycin 1gm IVPB 167 mls/hr DAILY MARICHUY Administration Protocol Propofol 1,000 mg in 100 mls @ 3.674 mls/hr 03/12/17 07:41 03/17/17 02:46 Diprivan IV 35 mcg/kg/min .Q24H PRN 25.719 mls/hr TITRATE PER MD ORDER Administration Protocol 5 MCG/KG/MIN Cisatracurium Besylate 100 mg/ 260 mls @ 1.91 mls/hr 03/12/17 07:52 03/16/17 17:30 Sodium Chloride IV 0 mcg/kg/min .Q24H PRN 0 mls/hr TITRATE PER MD ORDER Titration Protocol 0.1 MCG/KG/MIN Levetiracetam 1,000 mg/ Sodium 110 mls @ 460 mls/hr 03/12/17 22:00 03/16/17 21:22 Chloride IV 460 mls/hr Q12 MARICHUY Administration Levofloxacin/Dextrose 250 mg in 50 mls @ 50 mls/hr 03/14/17 11:45 03/16/17 17 :03 Levaquin 250mg IVPB 50 mls/hr DAILY MARICHUY Administration Potassium Chloride 40 meq/ 1,020 mls @ 100 mls/hr 03/15/17 11:00 03/17/17 03: 08 Sodium Chloride IV 100 mls/hr .[id number] MARICHUY Administration Cefepime HCl 1 gm in 100 mls @ 100 mls/hr 03/15/17 14:00 03/17/17 01:07 Maxipime 1gm IVPB 100 mls/hr Q12H MARICHUY Administration Protocol Fentanyl Citrate 1,000 mcg in 100 mls @ 15 mls/hr 03/16/17 05:41 03/17/17 02: 30 Fentanyl Citrate/Sodium Chloride 1 Mg/100 Ml IV 50 mcg/hr .Q6H40M PRN 5 mls/hr TITRATE PER MD ORDER Titration Protocol 150 MCG/HR Dexmedetomidine HCl 400 mcg in 100 mls @ 5.67 mls/hr 03/16/17 07:44 03/17/17 03:34 Precedex 4 Mcg/Ml (100 Ml) IV 1 mcg/kg/hr .[id number] PRN 28.35 mls/hr Sedation Administration Protocol 0.2 MCG/KG/HR Acetaminophen 1,000 mg in 100 mls @ 400 mls/hr 03/16/17 21:54 03/16/17 22:06 Ofirmev IVPB 03/18/17 21:55 400 mls/hr Q6H PRN Administration Temperature Pantoprazole Sodium 40 mg 03/12/17 10:00 03/16/17 12:35 Protonix Inj IVP 40 mg DAILY MARICHUY Administration - Patient Studies Lab Studies: Microbiology Studies 03/16/17 12:13 Gram Stain - Final Sputum 03/12/17 06:40 Blood Culture - Preliminary Blood-Venous NO GROWTH AFTER 4 DAYS 03/12/17 06:00 Blood Culture - Preliminary Blood-Venous NO GROWTH AFTER 4 DAYS Lab Studies 03/17/17 03/16/17 03/16/17 Range/Units 04:21 23:50 23:00 WBC (4.5-11.0) 10^3/ul RBC (3.5-6.1) 10^6/uL Hgb (14.0-18.0) g/dL Hct (42.0-52.0) % MCV (80.0-105.0) fl MCH (25.0-35.0) pg MCHC (31.0-37.0) g/dl RDW (11.5-14.5) % Plt Count (120.0-450.0) 10^3/uL MPV (7.0-11.0) fl Gran % (50.0-68.0) % Lymph % (Auto) (22.0-35.0) % [place] % (Auto) (1.0-6.0) % Eos % (Auto) (1.5-5.0) % Baso % (Auto) (0.0-3.0) % Gran # (1.4-6.5) Lymph # (1.2-3.4) [place] # (0.1-0.6) Eos # (0.0-0.7) Baso # (0.0-2.0) K/mm3 pCO2 (35-45) mm/Hg pO2 (80-100) mm/Hg HCO3 (21-28) mmol/L ABG pH (7.35-7.45) ABG Total CO2 (22-28) mmol.L ABG O2 Saturation (95-98) % ABG O2 Content (15-23) ML/dl ABG Base Excess (-2.0-3.0) mmol/L ABG Hemoglobin (11.7-17.4) g/dL ABG Carboxyhemoglobin (0.5-1.5) % POC ABG HHb (Measured) (0-5) % ABG Methemoglobin (0.0-3.0) % ABG O2 Capacity (16-24) mL/dl Hgb O2 Saturation (95.0-98.0) % FiO2 % Sodium 147 (132-148) mmol/L Potassium 3.6 (3.6-5.0) mmol/L Chloride 113 H (95-110) mmol/L Carbon Dioxide 22 (21-33) mmol/L Anion Gap 16 (10-20) BUN 55 H (7-21) mg/dL Creatinine 2.1 H (0.8-1.5) mg/dL Est GFR ( Amer) 43 Est GFR (Non-Af Amer) 36 POC Glucose (mg/dL) 133 H 146 H (65-110) mg/dL Random Glucose 134 H (70-110) mg/dL Lactic Acid (0.7-2.1) mmol/L Calcium 9.0 (8.4-10.5) mg/dL Phosphorus (2.5-4.5) mg/dL Magnesium 1.9 (1.7-2.2) mg/dL Total Bilirubin (0.2-1.3) mg/dL AST (17-59) U/L ALT (7-56) U/L Alkaline Phosphatase (38-126) U/L Total Protein (5.8-8.3) g/dL Albumin (3.0-4.8) g/dL Globulin gm/dL Albumin/Globulin Ratio (1.1-1.8) Ur L.pneumophila Ag (NEGATIVE) 03/16/17 03/16/17 03/16/17 Range/Units 20:18 18:05 16:26 WBC (4.5-11.0) 10^3/ul RBC (3.5-6.1) 10^6/uL Hgb (14.0-18.0) g/dL Hct (42.0-52.0) % MCV (80.0-105.0) fl MCH (25.0-35.0) pg MCHC (31.0-37.0) g/dl RDW (11.5-14.5) % Plt Count (120.0-450.0) 10^3/uL MPV (7.0-11.0) fl Gran % (50.0-68.0) % Lymph % (Auto) (22.0-35.0) % [place] % (Auto) (1.0-6.0) % Eos % (Auto) (1.5-5.0) % Baso % (Auto) (0.0-3.0) % Gran # (1.4-6.5) Lymph # (1.2-3.4) [place] # (0.1-0.6) Eos # (0.0-0.7) Baso # (0.0-2.0) K/mm3 pCO2 34 L (35-45) mm/Hg pO2 65.0 L (80-100) mm/Hg HCO3 23.6 (21-28) mmol/L ABG pH 7.45 (7.35-7.45) ABG Total CO2 24.6 (22-28) mmol.L ABG O2 Saturation 96.0 (95-98) % ABG O2 Content 12.4 L (15-23) ML/dl ABG Base Excess -0.1 (-2.0-3.0) mmol/L ABG Hemoglobin 9.4 L (11.7-17.4) g/dL ABG Carboxyhemoglobin 1.6 H (0.5-1.5) % POC ABG HHb (Measured) 3.9 (0-5) % ABG Methemoglobin 0.9 (0.0-3.0) % ABG O2 Capacity 12.9 L (16-24) mL/dl Hgb O2 Saturation 93.7 L (95.0-98.0) % FiO2 50.0 % Sodium (132-148) mmol/L Potassium 2.7 L* D (3.6-5.0) mmol/L Chloride (95-110) mmol/L Carbon Dioxide (21-33) mmol/L Anion Gap (10-20) BUN (7-21) mg/dL Creatinine (0.8-1.5) mg/dL Est GFR ( Amer) Est GFR (Non-Af Amer) POC Glucose (mg/dL) 155 H (65-110) mg/dL Random Glucose (70-110) mg/dL Lactic Acid (0.7-2.1) mmol/L Calcium (8.4-10.5) mg/dL Phosphorus (2.5-4.5) mg/dL Magnesium (1.7-2.2) mg/dL Total Bilirubin (0.2-1.3) mg/dL AST (17-59) U/L ALT (7-56) U/L Alkaline Phosphatase (38-126) U/L Total Protein (5.8-8.3) g/dL Albumin (3.0-4.8) g/dL Globulin gm/dL Albumin/Globulin Ratio (1.1-1.8) Ur L.pneumophila Ag (NEGATIVE) 03/16/17 03/16/17 03/16/17 Range/Units 16:07 05:35 05:30 WBC (4.5-11.0) 10^3/ul RBC (3.5-6.1) 10^6/uL Hgb (14.0-18.0) g/dL Hct (42.0-52.0) % MCV (80.0-105.0) fl MCH (25.0-35.0) pg MCHC (31.0-37.0) g/dl RDW (11.5-14.5) % Plt Count (120.0-450.0) 10^3/uL MPV (7.0-11.0) fl Gran % (50.0-68.0) % Lymph % (Auto) (22.0-35.0) % [place] % (Auto) (1.0-6.0) % Eos % (Auto) (1.5-5.0) % Baso % (Auto) (0.0-3.0) % Gran # (1.4-6.5) Lymph # (1.2-3.4) [place] # (0.1-0.6) Eos # (0.0-0.7) Baso # (0.0-2.0) K/mm3 pCO2 47 H (35-45) mm/Hg pO2 133.0 H (80-100) mm/Hg HCO3 25.4 (21-28) mmol/L ABG pH 7.34 L (7.35-7.45) ABG Total CO2 26.8 (22-28) mmol.L ABG O2 Saturation 99.1 H (95-98) % ABG O2 Content 14.5 L (15-23) ML/dl ABG Base Excess -0.7 (-2.0-3.0) mmol/L ABG Hemoglobin 10.5 L (11.7-17.4) g/dL ABG Carboxyhemoglobin 1.3 (0.5-1.5) % POC ABG HHb (Measured) 0.9 (0-5) % ABG Methemoglobin 1.0 (0.0-3.0) % ABG O2 Capacity 14.6 L (16-24) mL/dl Hgb O2 Saturation 96.8 (95.0-98.0) % FiO2 70.0 % Sodium 147 (132-148) mmol/L Potassium 3.0 L (3.6-5.0) mmol/L Chloride 108 (95-110) mmol/L Carbon Dioxide 25 (21-33) mmol/L Anion Gap 17 (10-20) BUN 57 H (7-21) mg/dL Creatinine 2.1 H (0.8-1.5) mg/dL Est GFR ( Amer) 43 Est GFR (Non-Af Amer) 36 POC Glucose (mg/dL) 106 (65-110) mg/dL Random Glucose 113 H (70-110) mg/dL Lactic Acid (0.7-2.1) mmol/L Calcium 8.5 (8.4-10.5) mg/dL Phosphorus 6.1 H (2.5-4.5) mg/dL Magnesium 2.0 (1.7-2.2) mg/dL Total Bilirubin 2.0 H (0.2-1.3) mg/dL AST 67 H (17-59) U/L ALT 185 H (7-56) U/L Alkaline Phosphatase 111 (38-126) U/L Total Protein 7.0 (5.8-8.3) g/dL Albumin 3.5 (3.0-4.8) g/dL Globulin 3.5 gm/dL Albumin/Globulin Ratio 1.0 L (1.1-1.8) Ur L.pneumophila Ag (NEGATIVE) 03/16/17 03/16/17 03/15/17 Range/Units 05:30 05:30 18:24 WBC 20.1 H (4.5-11.0) 10^3/ul RBC 3.46 L (3.5-6.1) 10^6/uL Hgb 9.9 L (14.0-18.0) g/dL Hct 29.4 L (42.0-52.0) % MCV 85.0 (80.0-105.0) fl MCH 28.6 (25.0-35.0) pg MCHC 33.7 (31.0-37.0) g/dl RDW 14.0 (11.5-14.5) % Plt Count 183 (120.0-450.0) 10^3/uL MPV 9.5 (7.0-11.0) fl Gran % 82.2 H (50.0-68.0) % Lymph % (Auto) 10.6 L (22.0-35.0) % [place] % (Auto) 6.6 H (1.0-6.0) % Eos % (Auto) 0.3 L (1.5-5.0) % Baso % (Auto) 0.3 (0.0-3.0) % Gran # 16.54 H (1.4-6.5) Lymph # 2.1 (1.2-3.4) [place] # 1.3 H (0.1-0.6) Eos # 0.1 (0.0-0.7) Baso # 0.06 (0.0-2.0) K/mm3 pCO2 (35-45) mm/Hg pO2 (80-100) mm/Hg HCO3 (21-28) mmol/L ABG pH (7.35-7.45) ABG Total CO2 (22-28) mmol.L ABG O2 Saturation (95-98) % ABG O2 Content (15-23) ML/dl ABG Base Excess (-2.0-3.0) mmol/L ABG Hemoglobin (11.7-17.4) g/dL ABG Carboxyhemoglobin (0.5-1.5) % POC ABG HHb (Measured) (0-5) % ABG Methemoglobin (0.0-3.0) % ABG O2 Capacity (16-24) mL/dl Hgb O2 Saturation (95.0-98.0) % FiO2 % Sodium (132-148) mmol/L Potassium (3.6-5.0) mmol/L Chloride (95-110) mmol/L Carbon Dioxide (21-33) mmol/L Anion Gap (10-20) BUN (7-21) mg/dL Creatinine (0.8-1.5) mg/dL Est GFR ( Amer) Est GFR (Non-Af Amer) POC Glucose (mg/dL) (65-110) mg/dL Random Glucose (70-110) mg/dL Lactic Acid 1.0 (0.7-2.1) mmol/L Calcium (8.4-10.5) mg/dL Phosphorus (2.5-4.5) mg/dL Magnesium (1.7-2.2) mg/dL Total Bilirubin (0.2-1.3) mg/dL AST (17-59) U/L ALT (7-56) U/L Alkaline Phosphatase (38-126) U/L Total Protein (5.8-8.3) g/dL Albumin (3.0-4.8) g/dL Globulin gm/dL Albumin/Globulin Ratio (1.1-1.8) Ur L.pneumophila Ag Negative (NEGATIVE) Laboratory Results - last 24 hr 03/15/17 03/16/17 03/16/17 18:24 05:30 05:30 WBC 20.1 H RBC 3.46 L Hgb 9.9 L Hct 29.4 L MCV 85.0 MCH 28.6 MCHC 33.7 RDW 14.0 Plt Count 183 MPV 9.5 Gran % 82.2 H Lymph % (Auto) 10.6 L [place] % (Auto) 6.6 H Eos % (Auto) 0.3 L Baso % (Auto) 0.3 Gran # 16.54 H Lymph # 2.1 [place] # 1.3 H Eos # 0.1 Baso # 0.06 pCO2 pO2 HCO3 ABG pH ABG Total CO2 ABG O2 Saturation ABG O2 Content ABG Base Excess ABG Hemoglobin ABG Carboxyhemoglobin POC ABG HHb (Measured) ABG Methemoglobin ABG O2 Capacity Hgb O2 Saturation FiO2 Sodium Potassium Chloride Carbon Dioxide Anion Gap BUN Creatinine Est GFR ( Amer) Est GFR (Non-Af Amer) POC Glucose (mg/dL) Random Glucose Lactic Acid 1.0 Calcium Phosphorus Magnesium Total Bilirubin AST ALT Alkaline Phosphatase Total Protein Albumin Globulin Albumin/Globulin Ratio Ur L.pneumophila Ag Negative 03/16/17 03/16/17 03/16/17 05:30 05:35 16:07 WBC RBC Hgb Hct MCV MCH MCHC RDW Plt Count MPV Gran % Lymph % (Auto) [place] % (Auto) Eos % (Auto) Baso % (Auto) Gran # Lymph # [place] # Eos # Baso # pCO2 47 H pO2 133.0 H HCO3 25.4 ABG pH 7.34 L ABG Total CO2 26.8 ABG O2 Saturation 99.1 H ABG O2 Content 14.5 L ABG Base Excess -0.7 ABG Hemoglobin 10.5 L ABG Carboxyhemoglobin 1.3 POC ABG HHb (Measured) 0.9 ABG Methemoglobin 1.0 ABG O2 Capacity 14.6 L Hgb O2 Saturation 96.8 FiO2 70.0 Sodium 147 Potassium 3.0 L Chloride 108 Carbon Dioxide 25 Anion Gap 17 BUN 57 H Creatinine 2.1 H Est GFR ( Amer) 43 Est GFR (Non-Af Amer) 36 POC Glucose (mg/dL) 106 Random Glucose 113 H Lactic Acid Calcium 8.5 Phosphorus 6.1 H Magnesium 2.0 Total Bilirubin 2.0 H AST 67 H ALT 185 H Alkaline Phosphatase 111 Total Protein 7.0 Albumin 3.5 Globulin 3.5 Albumin/Globulin Ratio 1.0 L Ur L.pneumophila Ag 03/16/17 03/16/17 03/16/17 16:26 18:05 20:18 WBC RBC Hgb Hct MCV MCH MCHC RDW Plt Count MPV Gran % Lymph % (Auto) [place] % (Auto) Eos % (Auto) Baso % (Auto) Gran # Lymph # [place] # Eos # Baso # pCO2 34 L pO2 65.0 L HCO3 23.6 ABG pH 7.45 ABG Total CO2 24.6 ABG O2 Saturation 96.0 ABG O2 Content 12.4 L ABG Base Excess -0.1 ABG Hemoglobin 9.4 L ABG Carboxyhemoglobin 1.6 H POC ABG HHb (Measured) 3.9 ABG Methemoglobin 0.9 ABG O2 Capacity 12.9 L Hgb O2 Saturation 93.7 L FiO2 50.0 Sodium Potassium 2.7 L* D Chloride Carbon Dioxide Anion Gap BUN Creatinine Est GFR ( Amer) Est GFR (Non-Af Amer) POC Glucose (mg/dL) 155 H Random Glucose Lactic Acid Calcium Phosphorus Magnesium Total Bilirubin AST ALT Alkaline Phosphatase Total Protein Albumin Globulin Albumin/Globulin Ratio Ur L.pneumophila Ag 03/16/17 03/16/17 03/17/17 23:00 23:50 04:21 WBC RBC Hgb Hct MCV MCH MCHC RDW Plt Count MPV Gran % Lymph % (Auto) [place] % (Auto) Eos % (Auto) Baso % (Auto) Gran # Lymph # [place] # Eos # Baso # pCO2 pO2 HCO3 ABG pH ABG Total CO2 ABG O2 Saturation ABG O2 Content ABG Base Excess ABG Hemoglobin ABG Carboxyhemoglobin POC ABG HHb (Measured) ABG Methemoglobin ABG O2 Capacity Hgb O2 Saturation FiO2 Sodium 147 Potassium 3.6 Chloride 113 H Carbon Dioxide 22 Anion Gap 16 BUN 55 H Creatinine 2.1 H Est GFR ( Amer) 43 Est GFR (Non-Af Amer) 36 POC Glucose (mg/dL) 146 H 133 H Random Glucose 134 H Lactic Acid Calcium 9.0 Phosphorus Magnesium 1.9 Total Bilirubin AST ALT Alkaline Phosphatase Total Protein Albumin Globulin Albumin/Globulin Ratio Ur L.pneumophila Ag Fingerstick Blood Sugar Results: 133 Review of Systems - Review of Systems Systems not reviewed;Unavailable: Intubated Critical Care Progress Note - Nutrition Nutrition: Nutrition Category Date Time Status NPO Diet [DIET] Diets 03/14/17 Breakfast Ordered Assessment/Plan - Assessment and Plan (Free Text) Assessment: This is a 36 yo M with past medical history of substance abuse, depression, bipolar disorder, hypertension, anxiety disorder that presented with cardiac arrest in the field (downtime unknown) due to multi-drug overdose, with two further episodes of cardiac arrest on arrival, and likely witnessed seizure prior to initiation of increased sedation and paralytics. He was weaned off of paralytics yesterday, and is pending further weaning of sedation today. Pending Neuro eval after sedation wean, but given unknown downtime likely > 20 minutes and thalamic anoxic injury on MRI, overall prognosis remains poor. Plan: Neuro: -converted from Versed to Precedex sedation, still on Fentanyl and Propofol, weaning down sedation as tolerated (Precedex last); Began seizing when weaning down Propofol, EEG obtained and then increased propofol again -Attempted to wean off Nimbex 2 days prior, failed due to tachypnea on vent in 40's-50's and was re-paralyzed; weaned yesterday again, tolerating currently -MRI brain obtained yesterday, notable for likely anoxic injury in thalamix area bilaterally; anoxic injury 2/2 cardiac arrest in field with unknown down time -No longer actively cooling, maintain normothermia; overnight fever reported at 101.4F -Urine toxicology positive for opiates, barbiturates and benzos -Seizure precautions, ppx with Keppra 1000mg IV q12 -Neurology consulted - Dr. Rene, appreciate all recs; poor prognosis given burst suppression pattern on EEG with seizure when weaned from sedation -Poison control following Pulm: -Satting 95-100%, ABG this AM reviewed, pH 7.40, appropriate pCO2 and pO2 on 50 % FiO2 -CXR this AM reviewed, as compared to prior CXRs appears slightly worse at the R base, possibly fluid overloaded, otherwise unchanged -Currently on PRVC 440/14/20/100%, continue to monitor Cardio: -Off all pressor support x5 days, maintaining MAP > 65 consistently -Intermittently bradycardic over the weekend, but HR consistently 60s-70s now -Troponins increased from <0.01 to 0.13 on admission -most recent EKG 03/13, notable for sinus halina to 48 and prolonged QTc at 537 ( unsurprising in setting of multi-drug abuse), will obtain repeat to reassess now that bradycardic episodes have resolved -Cardiology consulted - Dr. Anderson -Echo ordered, notable for EF 54%, normal size/wall thickness LV, flattened septum, mild Pulm HTN/TR, mild Rv dilation GI: -NPO -NGT placed -GI prophylaxis with protonix -LFTs improving, -s/p x3 dosing of Acetadote as per Poison Control, no additional doses ordered Renal: -diuresed with Lasix 60mg IVP x1, put out 3100cc clear yellow urine -Cr improving, -Will continue to monitor and treat electrolyte abnormalities as indicated; persistently low K requiring persistent repletion -Monitor I's and O's -Nephro following, appreciate all recs Endo: -Fingersticks q4h -Maintain euglycemia between 140-180's -Stress dose steroids with solu-cortef 50mg q8h ID: -Blood and urine cultures drawn, negative -All sputum Cx negative, last drawn 03/16 -Patient empirically covered with Cefepime, Levofloxacin, and Vanco -Fever overnight of 101.4F, given Ofirimev by night team, fever resolved, will obtain new blood and urine cx Heme: -Hgb 9.3, no overt signs of bleeding -SCDs for DVT ppx -Coags stable, INR 1.11 (was 1.06) Dispo: ICU, intubated/sedated, s/p seizure when weaning sedation, s/p EEG with burst-suppression pattern, poor prognosis, likely will be headed for Trach/PEG pending family decision tomorrow, prognosis very poor FEN: NPO, NS with KCl 40mEq at 100cc/hr Access: Peripheral IVs, R-femoral TLC Consults: Neuro, Cardio, Nephro, Poison Control Ppx: Protonix covers for GI, SCDs for DVT Patient seen, examined, and reviewed with attending, Dr. Bush. <Rachelle JONES,[facility] H - Last Filed: 03/17/17 14:10> CCU Objective - Vital Signs / Intake & Output Intake and Output (Last 8hrs): Intake & Output 03/16/17 03/17/17 03/17/17 22:59 06:59 14:59 Intake Total 2920 2521 175 Output Total 3100 1750 Balance -180 771 175 Intake: IV 2420 2521 175 Femoral 2136 Right Femoral 2000 Other 500 Output: Urine 3100 1750 Urethral (Armenta) 3100 1750 Stool 0 Urethral (Armenta) 0 - Medications Active Medications: Active Medications Generic Name Dose Route Start Last Admin Trade Name Freq PRN Reason Stop Dose Admin Albuterol/Ipratropium 3 ml 03/13/17 15:07 03/13/17 15:45 Duoneb 3 Mg/0.5 Mg (3 Ml) Ud IH 3 ml Q2H PRN Administration Shortness of Breath Albuterol/Ipratropium 3 ml 03/13/17 20:00 03/17/17 13:28 Duoneb 3 Mg/0.5 Mg (3 Ml) Ud IH 3 ml [id number] MAR[place]UY Administration Chlorhexidine Gluconate 15 ml 03/13/17 10:00 03/16/17 18:44 Peridex PO 15 ml BID MARICHUY Administration Hydrocortisone Sodium Succinate 50 mg 03/15/17 11:41 03/17/17 05:32 Solu-Cortef IVP 50 mg Q8 MARICHUY Administration NOREPINEPHRINE BIT/0.9 % NACL 4 mg in 250 mls @ 22.5 mls/hr 03/11/17 23:55 19:00 Levophed 4 Mg/ 250 Ml Ns Premixed IV 0 mcg/min .Q11H7M PRN 0 mls/hr TITRATE PER MD ORDER Titration Protocol 6 MCG/MIN Epinephrine HCl 1 mg/ Sodium 51 mls @ 3.06 mls/hr 03/12/17 00:35 03/12/17 19: 00 Chloride IV Infused .[id number] PRN Titration TITRATE PER MD ORDER Protocol 1 MCG/MIN Vancomycin HCl 1 gm in 250 mls @ 167 mls/hr 03/12/17 10:00 03/17/17 11:50 Vancomycin 1gm IVPB 167 mls/hr DAILY MARICHUY Administration Protocol Propofol 1,000 mg in 100 mls @ 3.674 mls/hr 03/12/17 07:41 03/17/17 11:22 Diprivan IV 12 mcg/kg/min .Q24H PRN 8.818 mls/hr TITRATE PER MD ORDER Administration Protocol 5 MCG/KG/MIN Cisatracurium Besylate 100 mg/ 260 mls @ 1.91 mls/hr 03/12/17 07:52 03/16/17 17:30 Sodium Chloride IV 0 mcg/kg/min .Q24H PRN 0 mls/hr TITRATE PER MD ORDER Titration Protocol 0.1 MCG/KG/MIN Levetiracetam 1,000 mg/ Sodium 110 mls @ 460 mls/hr 03/12/17 22:00 03/17/17 11:26 Chloride IV 460 mls/hr Q12 MARICHUY Administration Levofloxacin/Dextrose 250 mg in 50 mls @ 50 mls/hr 03/14/17 11:45 03/17/17 11 :50 Levaquin 250mg IVPB 50 mls/hr DAILY MARICHUY Administration Cefepime HCl 1 gm in 100 mls @ 100 mls/hr 03/15/17 14:00 03/17/17 01:07 Maxipime 1gm IVPB 100 mls/hr Q12H MAR[place]UY Administration Protocol Fentanyl Citrate 1,000 mcg in 100 mls @ 15 mls/hr 03/16/17 05:41 03/17/17 06: 36 Fentanyl Citrate/Sodium Chloride 1 Mg/100 Ml IV 0 mcg/hr .Q6H40M PRN 0 mls/hr TITRATE PER MD ORDER Titration Protocol 150 MCG/HR Dexmedetomidine HCl 400 mcg in 100 mls @ 5.67 mls/hr 03/16/17 07:44 03/17/17 10:21 Precedex 4 Mcg/Ml (100 Ml) IV 1.5 mcg/kg/hr .Q10H58U PRN 42.524 mls/hr Sedation Administration Protocol 0.2 MCG/KG/HR Acetaminophen 1,000 mg in 100 mls @ 400 mls/hr 03/16/17 21:54 03/16/17 22:06 Ofirmev IVPB 03/18/17 21:55 400 mls/hr Q6H PRN Administration Temperature Potassium Chloride 40 meq/ 1,020 mls @ 150 mls/hr 03/17/17 09:33 03/17/17 11: 24 Sodium Chloride IV 150 mls/hr .[id number] [facility] Administration Phenytoin 100 mg/ Sodium 52 mls @ 104 mls/hr 03/17/17 18:00 Chloride IVPB BID [facility] Pantoprazole Sodium 40 mg 03/12/17 10:00 03/17/17 11:28 Protonix Inj IVP 40 mg DAILY [facility] Administration - Patient Studies Lab Studies: Microbiology Studies 03/16/17 12:13 Gram Stain - Final Sputum Sputum Culture - Preliminary Yeast Species 03/12/17 06:40 Blood Culture - Final Blood-Venous NO GROWTH AFTER 5 DAYS Gram Stain - Final TEST NOT PERFORMED 03/12/17 06:00 Blood Culture - Final Blood-Venous NO GROWTH AFTER 5 DAYS Gram Stain - Final TEST NOT PERFORMED Lab Studies 03/17/17 03/17/1703/17/17 Range/Units 06:45 05:20 05:20 WBC 15.2 H D (4.5-11.0) 10^3/ul RBC 3.17 L (3.5-6.1) 10^6/uL Hgb 9.3 L (14.0-18.0) g/dL Hct 27.0 L (42.0-52.0) % MCV 85.2 (80.0-105.0) fl MCH 29.3 (25.0-35.0) pg MCHC 34.4 (31.0-37.0) g/dl RDW 13.8 (11.5-14.5) % Plt Count 175 (120.0-450.0) 10^3/uL MPV 9.7 (7.0-11.0) fl Gran % 73.8 H (50.0-68.0) % Lymph % (Auto) 16.8 L (22.0-35.0) % [place] % (Auto) 8.4 H (1.0-6.0) % Eos % (Auto) 0.8 L (1.5-5.0) % Baso % (Auto) 0.2 (0.0-3.0) % Gran # 11.20 H (1.4-6.5) Lymph # 2.6 (1.2-3.4) [place] # 1.3 H (0.1-0.6) Eos # 0.1 (0.0-0.7) Baso # 0.03 (0.0-2.0) K/mm3 PT 12.0 H (9.9-11.8) Seconds INR 1.11 H (0.93-1.08) APTT 24.8 (23.7-30.8) Seconds pCO2 31 L (35-45) mm/Hg pO2 172.0 H (80-100) mm/Hg HCO3 19.2 L (21-28) mmol/L ABG pH 7.40 (7.35-7.45) ABG Total CO2 20.2 L (22-28) mmol.L ABG O2 Saturation 98.9 H (95-98) % ABG O2 Content 12.5 L (15-23) ML/dl ABG Base Excess -4.9 L (-2.0-3.0) mmol/L ABG Hemoglobin 8.9 L (11.7-17.4) g/dL ABG Carboxyhemoglobin 1.3 (0.5-1.5) % POC ABG HHb (Measured) 1.1 (0-5) % ABG Methemoglobin 1.2 (0.0-3.0) % ABG O2 Capacity 12.6 L (16-24) mL/dl Hgb O2 Saturation 96.4 (95.0-98.0) % FiO2 50.0 % Sodium (132-148) mmol/L Potassium (3.6-5.0) mmol/L Chloride (98-107) mmol/L Carbon Dioxide (21-33) mmol/L Anion Gap (10-20) BUN (7-21) mg/dL Creatinine (0.8-1.5) mg/dL Est GFR ( Amer) Est GFR (Non-Af Amer) POC Glucose (mg/dL) (65-110) mg/dL Random Glucose (70-110) mg/dL Calcium (8.4-10.5) mg/dL Phosphorus (2.5-4.5) mg/dL Magnesium (1.7-2.2) mg/dL Total Bilirubin (0.2-1.3) mg/dL AST (17-59) U/L ALT (7-56) U/L Alkaline Phosphatase (38-126) U/L Total Protein (5.8-8.3) g/dL Albumin (3.0-4.8) g/dL Globulin gm/dL Albumin/Globulin Ratio (1.1-1.8) 03/17/17 03/17/17 03/16/17 Range/Units 05:20 04:21 23:50 WBC (4.5-11.0) 10^3/ul RBC (3.5-6.1) 10^6/uL Hgb (14.0-18.0) g/dL Hct (42.0-52.0) % MCV (80.0-105.0) fl MCH (25.0-35.0) pg MCHC (31.0-37.0) g/dl RDW (11.5-14.5) % Plt Count (120.0-450.0) 10^3/uL MPV (7.0-11.0) fl Gran % (50.0-68.0) % Lymph % (Auto) (22.0-35.0) % [place] % (Auto) (1.0-6.0) % Eos % (Auto) (1.5-5.0) % Baso % (Auto) (0.0-3.0) % Gran # (1.4-6.5) Lymph # (1.2-3.4) [place] # (0.1-0.6) Eos # (0.0-0.7) Baso # (0.0-2.0) K/mm3 PT (9.9-11.8) Seconds INR (0.93-1.08) APTT (23.7-30.8) Seconds pCO2 (35-45) mm/Hg pO2 (80-100) mm/Hg HCO3 (21-28) mmol/L ABG pH (7.35-7.45) ABG Total CO2 (22-28) mmol.L ABG O2 Saturation (95-98) % ABG O2 Content (15-23) ML/dl ABG Base Excess (-2.0-3.0) mmol/L ABG Hemoglobin (11.7-17.4) g/dL ABG Carboxyhemoglobin (0.5-1.5) % POC ABG HHb (Measured) (0-5) % ABG Methemoglobin (0.0-3.0) % ABG O2 Capacity (16-24) mL/dl Hgb O2 Saturation (95.0-98.0) % FiO2 % Sodium 150 H (132-148) mmol/L Potassium 3.8 (3.6-5.0) mmol/L Chloride 117 H (98-107) mmol/L Carbon Dioxide 22 (21-33) mmol/L Anion Gap 15 (10-20) BUN 55 H (7-21) mg/dL Creatinine 1.8 H (0.8-1.5) mg/dL Est GFR ( Amer) 51 Est GFR (Non-Af Amer) 42 POC Glucose (mg/dL) 133 H 146 H (65-110) mg/dL Random Glucose 112 H (70-110) mg/dL Calcium 9.0 (8.4-10.5) mg/dL Phosphorus 4.3 (2.5-4.5) mg/dL Magnesium 2.2 (1.7-2.2) mg/dL Total Bilirubin 2.2 H (0.2-1.3) mg/dL AST 66 H (17-59) U/L ALT 148 H (7-56) U/L Alkaline Phosphatase 120 (38-126) U/L Total Protein 6.8 (5.8-8.3) g/dL Albumin 3.4 (3.0-4.8) g/dL Globulin 3.4 gm/dL Albumin/Globulin Ratio 1.0 L (1.1-1.8) 03/16/17 03/16/17 03/16/17 Range/Units 23:00 20:18 18:05 WBC (4.5-11.0) 10^3/ul RBC (3.5-6.1) 10^6/uL Hgb (14.0-18.0) g/dL Hct (42.0-52.0) % MCV (80.0-105.0) fl MCH (25.0-35.0) pg MCHC (31.0-37.0) g/dl RDW (11.5-14.5) % Plt Count (120.0-450.0) 10^3/uL MPV (7.0-11.0) fl Gran % (50.0-68.0) % Lymph % (Auto) (22.0-35.0) % [place] % (Auto) (1.0-6.0) % Eos % (Auto) (1.5-5.0) % Baso % (Auto) (0.0-3.0) % Gran # (1.4-6.5) Lymph # (1.2-3.4) [place] # (0.1-0.6) Eos # (0.0-0.7) Baso # (0.0-2.0) K/mm3 PT (9.9-11.8) Seconds INR (0.93-1.08) APTT (23.7-30.8) Seconds pCO2 34 L (35-45) mm/Hg pO2 65.0 L (80-100) mm/Hg HCO3 23.6 (21-28) mmol/L ABG pH 7.45 (7.35-7.45) ABG Total CO2 24.6 (22-28) mmol.L ABG O2 Saturation 96.0 (95-98) % ABG O2 Content 12.4 L (15-23) ML/dl ABG Base Excess -0.1 (-2.0-3.0) mmol/L ABG Hemoglobin 9.4 L (11.7-17.4) g/dL ABG Carboxyhemoglobin 1.6 H (0.5-1.5) % POC ABG HHb (Measured) 3.9 (0-5) % ABG Methemoglobin 0.9 (0.0-3.0) % ABG O2 Capacity 12.9 L (16-24) mL/dl Hgb O2 Saturation 93.7 L (95.0-98.0) % FiO2 50.0 % Sodium 147 (132-148) mmol/L Potassium 3.6 (3.6-5.0) mmol/L Chloride 113 H (98-107) mmol/L Carbon Dioxide 22 (21-33) mmol/L Anion Gap 16 (10-20) BUN 55 H (7-21) mg/dL Creatinine 2.1 H (0.8-1.5) mg/dL Est GFR ( Amer) 43 Est GFR (Non-Af Amer) 36 POC Glucose (mg/dL) 155 H (65-110) mg/dL Random Glucose 134 H (70-110) mg/dL Calcium 9.0 (8.4-10.5) mg/dL Phosphorus (2.5-4.5) mg/dL Magnesium 1.9 (1.7-2.2) mg/dL Total Bilirubin (0.2-1.3) mg/dL AST (17-59) U/L ALT (7-56) U/L Alkaline Phosphatase (38-126) U/L Total Protein (5.8-8.3) g/dL Albumin (3.0-4.8) g/dL Globulin gm/dL Albumin/Globulin Ratio (1.1-1.8) 03/16/17 03/16/17 Range/Units 16:26 16:07 WBC (4.5-11.0) 10^3/ul RBC (3.5-6.1) 10^6/uL Hgb (14.0-18.0) g/dL Hct (42.0-52.0) % MCV (80.0-105.0) fl MCH (25.0-35.0) pg MCHC (31.0-37.0) g/dl RDW (11.5-14.5) % Plt Count (120.0-450.0) 10^3/uL MPV (7.0-11.0) fl Gran % (50.0-68.0) % Lymph % (Auto) (22.0-35.0) % [place] % (Auto) (1.0-6.0) % Eos % (Auto) (1.5-5.0) % Baso % (Auto) (0.0-3.0) % Gran # (1.4-6.5) Lymph # (1.2-3.4) [place] # (0.1-0.6) Eos # (0.0-0.7) Baso # (0.0-2.0) K/mm3 PT (9.9-11.8) Seconds INR (0.93-1.08) APTT (23.7-30.8) Seconds pCO2 (35-45) mm/Hg pO2 (80-100) mm/Hg HCO3 (21-28) mmol/L ABG pH (7.35-7.45) ABG Total CO2 (22-28) mmol.L ABG O2 Saturation (95-98) % ABG O2 Content (15-23) ML/dl ABG Base Excess (-2.0-3.0) mmol/L ABG Hemoglobin (11.7-17.4) g/dL ABG Carboxyhemoglobin (0.5-1.5) % POC ABG HHb (Measured) (0-5) % ABG Methemoglobin (0.0-3.0) % ABG O2 Capacity (16-24) mL/dl Hgb O2 Saturation (95.0-98.0) % FiO2 % Sodium (132-148) mmol/L Potassium 2.7 L* D (3.6-5.0) mmol/L Chloride (98-107) mmol/L Carbon Dioxide (21-33) mmol/L Anion Gap (10-20) BUN (7-21) mg/dL Creatinine (0.8-1.5) mg/dL Est GFR ( Amer) Est GFR (Non-Af Amer) POC Glucose (mg/dL) 106 (65-110) mg/dL Random Glucose (70-110) mg/dL Calcium (8.4-10.5) mg/dL Phosphorus (2.5-4.5) mg/dL Magnesium (1.7-2.2) mg/dL Total Bilirubin (0.2-1.3) mg/dL AST (17-59) U/L ALT (7-56) U/L Alkaline Phosphatase (38-126) U/L Total Protein (5.8-8.3) g/dL Albumin (3.0-4.8) g/dL Globulin gm/dL Albumin/Globulin Ratio (1.1-1.8) Laboratory Results - last 24 hr 03/16/17 03/16/17 03/16/17 16:07 16:26 18:05 WBC RBC Hgb Hct MCV MCH MCHC RDW Plt Count MPV Gran % Lymph % (Auto) [place] % (Auto) Eos % (Auto) Baso % (Auto) Gran # Lymph # [place] # Eos # Baso # PT INR APTT pCO2 34 L pO2 65.0 L HCO3 23.6 ABG pH 7.45 ABG Total CO2 24.6 ABG O2 Saturation 96.0 ABG O2 Content 12.4 L ABG Base Excess -0.1 ABG Hemoglobin 9.4 L ABG Carboxyhemoglobin 1.6 H POC ABG HHb (Measured) 3.9 ABG Methemoglobin 0.9 ABG O2 Capacity 12.9 L Hgb O2 Saturation 93.7 L FiO2 50.0 Sodium Potassium 2.7 L* D Chloride Carbon Dioxide Anion Gap BUN Creatinine Est GFR ( Amer) Est GFR (Non-Af Amer) POC Glucose (mg/dL) 106 Random Glucose Calcium Phosphorus Magnesium Total Bilirubin AST ALT Alkaline Phosphatase Total Protein Albumin Globulin Albumin/Globulin Ratio 03/16/17 03/16/17 03/16/17 20:18 23:00 23:50 WBC RBC Hgb Hct MCV MCH MCHC RDW Plt Count MPV Gran % Lymph % (Auto) [place] % (Auto) Eos % (Auto) Baso % (Auto) Gran # Lymph # [place] # Eos # Baso # PT INR APTT pCO2 pO2 HCO3 ABG pH ABG Total CO2 ABG O2 Saturation ABG O2 Content ABG Base Excess ABG Hemoglobin ABG Carboxyhemoglobin POC ABG HHb (Measured) ABG Methemoglobin ABG O2 Capacity Hgb O2 Saturation FiO2 Sodium 147 Potassium 3.6 Chloride 113 H Carbon Dioxide 22 Anion Gap 16 BUN 55 H Creatinine 2.1 H Est GFR ( Amer) 43 Est GFR (Non-Af Amer) 36 POC Glucose (mg/dL) 155 H 146 H Random Glucose 134 H Calcium 9.0 Phosphorus Magnesium 1.9 Total Bilirubin AST ALT Alkaline Phosphatase Total Protein Albumin Globulin Albumin/Globulin Ratio 03/17/17 03/17/17 03/17/17 04:21 05:20 05:20 WBC 15.2 H D RBC 3.17 L Hgb 9.3 L Hct 27.0 L MCV 85.2 MCH 29.3 MCHC 34.4 RDW 13.8 Plt Count 175 MPV 9.7 Gran % 73.8 H Lymph % (Auto) 16.8 L [place] % (Auto) 8.4 H Eos % (Auto) 0.8 L Baso % (Auto) 0.2 Gran # 11.20 H Lymph # 2.6 [place] # 1.3 H Eos # 0.1 Baso # 0.03 PT INR APTT pCO2 pO2 HCO3 ABG pH ABG Total CO2 ABG O2 Saturation ABG O2 Content ABG Base Excess ABG Hemoglobin ABG Carboxyhemoglobin POC ABG HHb (Measured) ABG Methemoglobin ABG O2 Capacity Hgb O2 Saturation FiO2 Sodium 150 H Potassium 3.8 Chloride 117 H Carbon Dioxide 22 Anion Gap 15 BUN 55 H Creatinine 1.8 H Est GFR ( Amer) 51 Est GFR (Non-Af Amer) 42 POC Glucose (mg/dL) 133 H Random Glucose 112 H Calcium 9.0 Phosphorus 4.3 Magnesium 2.2 Total Bilirubin 2.2 H AST 66 H ALT 148 H Alkaline Phosphatase 120 Total Protein 6.8 Albumin 3.4 Globulin 3.4 Albumin/Globulin Ratio 1.0 L 03/17/17 03/17/17 05:20 06:45 WBC RBC Hgb Hct MCV MCH MCHC RDW Plt Count MPV Gran % Lymph % (Auto) [place] % (Auto) Eos % (Auto) Baso % (Auto) Gran # Lymph # [place] # Eos # Baso # PT 12.0 H INR 1.11 H APTT 24.8 pCO2 31 L pO2 172.0 H HCO3 19.2 L ABG pH 7.40 ABG Total CO2 20.2 L ABG O2 Saturation 98.9 H ABG O2 Content 12.5 L ABG Base Excess -4.9 L ABG Hemoglobin 8.9 L ABG Carboxyhemoglobin 1.3 POC ABG HHb (Measured) 1.1 ABG Methemoglobin 1.2 ABG O2 Capacity 12.6 L Hgb O2 Saturation 96.4 FiO2 50.0 Sodium Potassium Chloride Carbon Dioxide Anion Gap BUN Creatinine Est GFR ( Amer) Est GFR (Non-Af Amer) POC Glucose (mg/dL) Random Glucose Calcium Phosphorus Magnesium Total Bilirubin AST ALT Alkaline Phosphatase Total Protein Albumin Globulin Albumin/Globulin Ratio Critical Care Progress Note - Nutrition Nutrition: Nutrition Category Date Time Status NPO Diet [DIET] Diets 03/14/17 Breakfast Ordered Attending/Attestation - Attestation I have personally seen and examined this patient.: Yes I have fully participated in the care of the patient.: Yes I have reviewed all pertinent clinical information: Yes Notes (Text): 03/17/17 14:08 36 y/o M w/ anoxic brain injury s/p cardiac arrest x 3. Taken off sedation and paralytics and foudn to have breakthrough seizures confirmed on EEG. Placed back on Propofol and started on Dialantin and/or Keppra. Able to breath spont. passed SBT trail. Not able to have any cognitive function. On empiric abx. x 8 days P/F ratio on the Vent stable and improving. Keep Pao2> 60 Ph> 7.3 dvt p ppi cc time 65 min
[2017-03-17 06:29] LABS: BASO # 0.03 K/mm3 (0.0-2.0); BASO % 0.2 % (0.0-3.0); EOS # 0.1 (0.0-0.7); EOS % 0.8 % (1.5-5.0); GRAN # 11.2 (1.4-6.5); GRAN % 73.8 % (50.0-68.0); LYMPH # 2.6 (1.2-3.4); LYMPH % 16.8 % (22.0-35.0); MEAN CELL VOLUME 85.2 fl (80.0-105.0); MEAN CORPUSCULAR HEMOGLOBIN 29.3 pg (25.0-35.0); MEAN CORPUSCULAR HGB CONC 34.4 g/dl (31.0-37.0); MEAN PLATELET VOLUME 9.7 fl (7.0-11.0); MONO # 1.3 (0.1-0.6); MONO % 8.4 % (1.0-6.0); RED CELL DISTRIBUTION WIDTH 13.8 % (11.5-14.5); WHITE BLOOD COUNT 15.2 10^3/ul (4.5-11.0)
[2017-03-17 06:37] LABS: INR 1.11 (0.93-1.08); PARTIAL THROMBOPLASTIN TIME 24.8 Seconds (23.7-30.8)
[2017-03-17 06:40] LABS: BILIRUBIN,TOTAL 2.2 mg/dL (0.2-1.3); MAGNESIUM 2.2 mg/dL (1.7-2.2); PHOSPHOROUS 4.3 mg/dL (2.5-4.5); POTASSIUM 3.8 mmol/L (3.6-5.0); TOTAL PROTEIN 6.8 g/dL (5.8-8.3)
[2017-03-17 07:03] LABS: ARTERIAL BLOOD GAS HCO3 19.2 mmol/L (21-28); ARTERIAL BLOOD GAS O2 CAPACITY 12.6 mL/dl (16-24); ARTERIAL BLOOD GAS O2 CONTENT 12.5 ML/dl (15-23); ARTERIAL BLOOD HGB O2 SAT 96.4 % (95.0-98.0); CARBOXYHEMOGLOBIN 1.3 % (0.5-1.5); HHB 1.1 % (0-5); METHEMOGLOBIN 1.2 % (0.0-3.0)
--- NOTE | 2017-03-17 09:04 | CP.PCM.PN ---
<Zac Archer - Last Filed: 03/17/17 17:33> Subjective - Date & Time of Evaluation Date of Evaluation: 03/17/17 Time of Evaluation: 07:01 - Subjective Subjective: Patient seen and examined at bedside. Per nursing no acute events occurred overnight. The patient was weaned off of the Nimbex and Fentanyl drips and remains on the Precedix and Propfol drip. ROS unobtainable due to current clinical condition. Objective - Vital Signs/Intake and Output Vital Signs (last 24 hours): Temp Pulse Resp BP Pulse Ox 97.9 F 45 L 20 140/71 98 03/17/17 04:23 03/17/17 06:20 03/17/17 07:17 03/17/17 06:15 03/17/17 07:17 Intake and Output: 03/17/17 03/17/17 06:59 18:59 Intake Total 5206 Output Total 4850 Balance 356 - Medications Medications: Current Medications Albuterol/Ipratropium (Duoneb 3 Mg/0.5 Mg (3 Ml) Ud) 3 ml IH Q2H PRN PRN Reason: Shortness of Breath Last Admin: 03/13/17 15:45 Dose: 3 ml Albuterol/Ipratropium (Duoneb 3 Mg/0.5 Mg (3 Ml) Ud) 3 ml IH [id number] [facility] Last Admin: 03/17/17 07:04 Dose: 3 ml Chlorhexidine Gluconate (Peridex) 15 ml PO BID [facility] Last Admin: 03/16/17 18:44 Dose: 15 ml Hydrocortisone Sodium Succinate (Solu-Cortef) 50 mg IVP Q8 [facility] Last Admin: 03/17/17 05:32 Dose: 50 mg NOREPINEPHRINE BIT/0.9 % NACL (Levophed 4 Mg/ 250 Ml Ns Premixed) 4 mg in 250 mls @ 22.5 mls/hr IV .Q11H7M PRN; Protocol; 6 MCG/MIN PRN Reason: TITRATE PER MD ORDER Last Titration: 03/12/17 19:00 Dose: 0 mcg/min, 0 mls/hr Epinephrine HCl 1 mg/ Sodium (Chloride) 51 mls @ 3.06 mls/hr IV .[id number] PRN; Protocol; 1 MCG/MIN PRN Reason: TITRATE PER MD ORDER Last Titration: 03/12/17 19:00 Dose: Infused Vancomycin HCl (Vancomycin 1gm) 1 gm in 250 mls @ 167 mls/hr IVPB DAILY [facility] PRN Reason: Protocol Last Admin: 03/16/17 13:57 Dose: 167 mls/hr Propofol (Diprivan) 1,000 mg in 100 mls @ 3.674 mls/hr IV .Q24H PRN; Protocol; 5 MCG/KG/MIN PRN Reason: TITRATE PER MD ORDER Last Titration: 03/17/17 06:35 Dose: 25 mcg/kg/min, 18.371 mls/hr Cisatracurium Besylate 100 mg/ (Sodium Chloride) 260 mls @ 1.91 mls/hr IV .Q24H PRN; Protocol; 0.1 MCG/KG/MIN PRN Reason: TITRATE PER MD ORDER Last Titration: 03/16/17 17:30 Dose: 0 mcg/kg/min, 0 mls/hr Levetiracetam 1,000 mg/ Sodium (Chloride) 110 mls @ 460 mls/hr IV Q12 [facility] Last Admin: 03/16/17 21:22 Dose: 460 mls/hr Levofloxacin/Dextrose (Levaquin 250mg) 250 mg in 50 mls @ 50 mls/hr IVPB DAILY [facility] Last Admin: 03/16/17 17:03 Dose: 50 mls/hr Potassium Chloride 40 meq/ (Sodium Chloride) 1,020 mls @ 100 mls/hr IV .[id number] [facility] Last Admin: 03/17/17 03:08 Dose: 100 mls/hr Cefepime HCl (Maxipime 1gm) 1 gm in 100 mls @ 100 mls/hr IVPB Q12H [facility] PRN Reason: Protocol Last Admin: 03/17/17 01:07 Dose: 100 mls/hr Fentanyl Citrate (Fentanyl Citrate/Sodium Chloride 1 Mg/100 Ml) 1,000 mcg in 100 mls @ 15 mls/hr IV .Q6H40M PRN; Protocol; 150 MCG/HR PRN Reason: TITRATE PER MD ORDER Last Titration: 03/17/17 06:36 Dose: 0 mcg/hr, 0 mls/hr Dexmedetomidine HCl (Precedex 4 Mcg/Ml (100 Ml)) 400 mcg in 100 mls @ 5.67 mls/ hr IV .[id number] PRN; Protocol; 0.2 MCG/KG/HR PRN Reason: Sedation Last Admin: 03/17/17 03:34 Dose: 1 mcg/kg/hr, 28.35 mls/hr Acetaminophen (Ofirmev) 1,000 mg in 100 mls @ 400 mls/hr IVPB Q6H PRN PRN Reason: Temperature Stop: 03/18/17 21:55 Last Admin: 03/16/17 22:06 Dose: 400 mls/hr Pantoprazole Sodium (Protonix Inj) 40 mg IVP DAILY [facility] Last Admin: 03/16/17 12:35 Dose: 40 mg - Labs Labs: 03/17/17 05:20 03/17/17 05:20 PT 12.0 Seconds (9.9-11.8) H 03/17/17 05:20 INR 1.11 (0.93-1.08) H 03/17/17 05:20 APTT 24.8 Seconds (23.7-30.8) 03/17/17 05:20 - Head Exam Head Exam: ATRAUMATIC, NORMAL INSPECTION, NORMOCEPHALIC - Eye Exam Eye Exam: Normal appearance, PERRL Pupil Exam: PERRL - ENT Exam ENT Exam: Mucous Membranes Moist, Normal Oropharynx - Respiratory Exam Respiratory Exam: Rhonchi. absent: Clear to Ausculation Bilateral, NORMAL BREATHING PATTERN - Cardiovascular Exam Cardiovascular Exam: REGULAR RHYTHM, +S1, +S2. absent: Gallop, Rubs - GI/Abdominal Exam GI & Abdominal Exam: Soft, Normal Bowel Sounds - Extremities Exam Extremities Exam: Full ROM, Normal Capillary Refill. absent: Joint Swelling, Tenderness - Neurological Exam Neurological Exam: Altered - Skin Skin Exam: Dry, Intact Assessment and Plan - Assessment and Plan (Free Text) Assessment: 36yo male with drug overdose, with multiple substances (+BZDs, barbiturate, Opiates), s/p ROSC after cardiac arrest x 3, unknown initial downtime at home. Plan: Neuro: -Patient intubated and unresponsive on no sedative medication -Continue to Maintain temp ~92-94F -Neurochecks q2h -Urine toxicology positive for opiates, barbiturates and benzos -CT Head (-). Seen by Neurology. EEG completed -Patient sedation cut down today initially, however respiration rate was irregular and accelerated. Sedated. Will continue to taper FiO2 down as tolerated and continued sedation. -Continue Seizure precautions -Neurology rec's appreciated. EEG showed diffuse slowing throughout the recording, consistent with bilateral cerebral dysfunction. No evidence of epileptiform activity. -Patient weaned off of Nimbex and Fentanyl drips. Remains on Precedex drip. -Neuro status hard to determine due to sedation. Will reassess once sedation is weaned off. -Brain MRI showed anoxic injury in thalamic region bilaterally. Will f/u with Neuro rec's tomorrow. Cardio: -Continue Fentanyl, propofol, Cisatracurium, and [place] with goal MAP > 70 -Troponin negative x1 and one indeterminate results (.08). -EKG reviewed; atrial fibrillation with slow ventricular response (51bpm), nonspecific intraventricular block -F/U with Cardiology recs. Pulm: -ABG and CXR reviewed -patient pO2 on ABG this morning improving. Patient's FiO2 cut down to 40%. Will monitor closely. -Continue serial CXR and ABG. GI: -NPO -NGT -GI prophylaxis with protonix Renal: -Continue 1/2 NS w/40meq KCL @ 100cc/hr. -Will continue to monitor and treat electrolyte abnormalities as indicated -Monitor I's and O's Endo: -Fingersticks q2h -Maintain euglycemia between 140-180's -Stress dose steroids with solu-kiki 100mg q8h ID: -Blood and urine cultures drawn. No growth in blood and urine cultures after 5 days. Will f/u with final results tomorrow. WBC count decreased to 15.2 today. Could be secondary to steroid use. -Continue with levaquin and vancomycin. Will monitor closely. GI/DVT Prophylaxis: Protonix/SCD's <Raheel Espitia - Last Filed: 03/18/17 07:48> Objective - Vital Signs/Intake and Output Vital Signs (last 24 hours): Temp Pulse Resp BP Pulse Ox 99.4 F 46 L 31 H 140/75 98 03/18/17 04:00 03/18/17 06:00 03/18/17 00:01 03/18/17 06:00 03/18/17 06:00 Intake and Output: 03/18/17 03/18/17 06:59 18:59 Intake Total 2790 Output Total 7365 Balance 365 - Medications Medications: Current Medications Albuterol/Ipratropium (Duoneb 3 Mg/0.5 Mg (3 Ml) Ud) 3 ml IH Q2H PRN PRN Reason: Shortness of Breath Last Admin: 03/13/17 15:45 Dose: 3 ml Albuterol/Ipratropium (Duoneb 3 Mg/0.5 Mg (3 Ml) Ud) 3 ml IH [id number] [facility] Last Admin: 03/18/17 07:21 Dose: 3 ml Chlorhexidine Gluconate (Peridex) 15 ml PO BID [facility] Last Admin: 03/17/17 18:16 Dose: 15 ml Hydrocortisone Sodium Succinate (Solu-Cortef) 50 mg IVP Q8 [facility] Last Admin: 03/18/17 05:45 Dose: 50 mg NOREPINEPHRINE BIT/0.9 % NACL (Levophed 4 Mg/ 250 Ml Ns Premixed) 4 mg in 250 mls @ 22.5 mls/hr IV .Q11H7M PRN; Protocol; 6 MCG/MIN PRN Reason: TITRATE PER MD ORDER Last Titration: 03/12/17 19:00 Dose: 0 mcg/min, 0 mls/hr Epinephrine HCl 1 mg/ Sodium (Chloride) 51 mls @ 3.06 mls/hr IV .[id number] PRN; Protocol; 1 MCG/MIN PRN Reason: TITRATE PER MD ORDER Last Titration: 03/12/17 19:00 Dose: Infused Vancomycin HCl (Vancomycin 1gm) 1 gm in 250 mls @ 167 mls/hr IVPB DAILY [facility] PRN Reason: Protocol Last Admin: 03/17/17 11:50 Dose: 167 mls/hr Propofol (Diprivan) 1,000 mg in 100 mls @ 3.674 mls/hr IV .Q24H PRN; Protocol; 5 MCG/KG/MIN PRN Reason: TITRATE PER MD ORDER Last Admin: 03/18/17 04:00 Dose: 12 mcg/kg/min, 8.818 mls/hr Cisatracurium Besylate 100 mg/ (Sodium Chloride) 260 mls @ 1.91 mls/hr IV .Q24H PRN; Protocol; 0.1 MCG/KG/MIN PRN Reason: TITRATE PER MD ORDER Last Titration: 03/16/17 17:30 Dose: 0 mcg/kg/min, 0 mls/hr Levetiracetam 1,000 mg/ Sodium (Chloride) 110 mls @ 460 mls/hr IV Q12 [facility] Last Admin: 03/17/17 21:27 Dose: 460 mls/hr Levofloxacin/Dextrose (Levaquin 250mg) 250 mg in 50 mls @ 50 mls/hr IVPB DAILY [facility] Last Admin: 03/17/17 11:50 Dose: 50 mls/hr Cefepime HCl (Maxipime 1gm) 1 gm in 100 mls @ 100 mls/hr IVPB Q12H [facility] PRN Reason: Protocol Last Admin: 03/18/17 02:04 Dose: 100 mls/hr Fentanyl Citrate (Fentanyl Citrate/Sodium Chloride 1 Mg/100 Ml) 1,000 mcg in 100 mls @ 15 mls/hr IV .[id number] PRN; Protocol; 150 MCG/HR PRN Reason: TITRATE PER MD ORDER Last Titration: 03/17/17 06:36 Dose: 0 mcg/hr, 0 mls/hr Dexmedetomidine HCl (Precedex 4 Mcg/Ml (100 Ml)) 400 mcg in 100 mls @ 5.67 mls/ hr IV .[id number] PRN; Protocol; 0.2 MCG/KG/HR PRN Reason: Sedation Last Admin: 03/18/17 05:49 Dose: 1 mcg/kg/hr, 28.35 mls/hr Acetaminophen (Ofirmev) 1,000 mg in 100 mls @ 400 mls/hr IVPB Q6H PRN PRN Reason: Temperature Stop: 03/18/17 21:55 Last Admin: 03/17/17 22:34 Dose: 400 mls/hr Phenytoin 100 mg/ Sodium (Chloride) 52 mls @ 104 mls/hr IVPB BID [facility] Dextrose (Dextrose 5% In Water 1000 Ml) 1,000 mls @ 75 mls/hr IV .[id number] [facility] Last Admin: 03/17/17 23:36 Dose: 75 mls/hr Potassium Chloride 40 meq/ (Sodium Chloride) 1,020 mls @ 100 mls/hr IV .[id number] [facility] Last Admin: 03/17/17 23:36 Dose: 100 mls/hr Potassium Chloride (Potassium Chloride 20 Meq/100 Ml) 20 meq in 100 mls @ 50 mls/hr IVPB Q2H [facility] Stop: 03/18/17 11:44 Pantoprazole Sodium (Protonix Inj) 40 mg IVP DAILY [facility] Last Admin: 03/17/17 11:28 Dose: 40 mg - Labs Labs: 03/18/17 05:45 03/18/17 05:45 PT 12.2 Seconds (9.9-11.8) H 03/18/17 05:45 INR 1.13 (0.93-1.08) H 03/18/17 05:45 APTT 24.3 Seconds (23.7-30.8) 03/18/17 05:45 Attending/Attestation - Attestation I have personally seen and examined this patient.: Yes I have fully participated in the care of the patient.: Yes I have reviewed all pertinent clinical information, including history, physical exam and plan: Yes Notes (Text): 03/17/17 36 year old male with past medical history of depression, anxiety, hypertension , and substance abuse who presented with cardiac arrest secondary to suspected drug overdose. Urine drug screen was positive for opiates, barbituates and benzodiazepines. He is currently intubated on sedation. Continue with vent management and weaning trials as per [employer] admin. MRI brain showed signs of anoxic injury. EEG was reviewed as well. Findings were discussed with family by neurologist and [employer] admin. He was also found to have renal insufficiency and elevated LFTs which have improved. He is also on stress dose steroids and iv antibiotics. Leukocytosis noted possibly due to steroids which is also improving. Raheel Espitia MD Hospitalist.
[2017-03-17] MEDS ORDERED: Fosphenytoin 100 mg/2 ml Inj IV ONE (11:20)
[2017-03-17] MEDS: levETIRAcetam 1,000 MG in Sodium Chloride 0.9% 100 ML IV SCH ×2 (11:26→21:27)
[2017-03-17] MEDS ORDERED: FOSPHENYTOIN IV ONE (11:45)
[2017-03-17] MEDS ORDERED: SODIUM CHLORIDE 0.9% IV ONE (11:45)
[2017-03-17] MEDS: Vancomycin 1gm in NS 250ml 1 GM/250 ML BAG IVPB SCH (11:50)
[2017-03-17] MEDS: levoFLOXacin 250 mg in D5W 250 MG/50 ML BAG IVPB SCH (11:50)
--- NOTE | 2017-03-17 12:51 | CP.PCM.PN ---
<Radha Villatoro - Last Filed: 03/17/17 12:47> Subjective - Date & Time of Evaluation Date of Evaluation: 03/17/17 Time of Evaluation: 12:47 - Subjective Subjective: Neurology Progress Note for Dr. Rene Patient seen and examined at bedside. As per nursing, patient has been having twitching episodes in his face bilaterally. Patient is currently sedated on Propofol and intubated. ROS could not be obtained. Objective - Vital Signs/Intake and Output Vital Signs (last 24 hours): Temp Pulse Resp BP Pulse Ox 97.9 F 45 L 20 140/71 98 03/17/17 04:23 03/17/17 06:20 03/17/17 07:17 03/17/17 06:15 03/17/17 07:17 Intake and Output: 03/17/17 03/17/17 06:59 18:59 Intake Total 5206 175 Output Total 4850 Balance 356 175 - Medications Medications: Current Medications Albuterol/Ipratropium (Duoneb 3 Mg/0.5 Mg (3 Ml) Ud) 3 ml IH Q2H PRN PRN Reason: Shortness of Breath Last Admin: 03/13/17 15:45 Dose: 3 ml Albuterol/Ipratropium (Duoneb 3 Mg/0.5 Mg (3 Ml) Ud) 3 ml IH [id number] [facility] Last Admin: 03/17/17 07:04 Dose: 3 ml Chlorhexidine Gluconate (Peridex) 15 ml PO BID [facility] Last Admin: 03/16/17 18:44 Dose: 15 ml Hydrocortisone Sodium Succinate (Solu-Cortef) 50 mg IVP Q8 [facility] Last Admin: 03/17/17 05:32 Dose: 50 mg NOREPINEPHRINE BIT/0.9 % NACL (Levophed 4 Mg/ 250 Ml Ns Premixed) 4 mg in 250 mls @ 22.5 mls/hr IV .Q11H7M PRN; Protocol; 6 MCG/MIN PRN Reason: TITRATE PER MD ORDER Last Titration: 03/12/17 19:00 Dose: 0 mcg/min, 0 mls/hr Epinephrine HCl 1 mg/ Sodium (Chloride) 51 mls @ 3.06 mls/hr IV .[id number] PRN; Protocol; 1 MCG/MIN PRN Reason: TITRATE PER MD ORDER Last Titration: 03/12/17 19:00 Dose: Infused Vancomycin HCl (Vancomycin 1gm) 1 gm in 250 mls @ 167 mls/hr IVPB DAILY [facility] PRN Reason: Protocol Last Admin: 03/17/17 11:50 Dose: 167 mls/hr Propofol (Diprivan) 1,000 mg in 100 mls @ 3.674 mls/hr IV .Q24H PRN; Protocol; 5 MCG/KG/MIN PRN Reason: TITRATE PER MD ORDER Last Admin: 03/17/17 11:22 Dose: 12 mcg/kg/min, 8.818 mls/hr Cisatracurium Besylate 100 mg/ (Sodium Chloride) 260 mls @ 1.91 mls/hr IV .Q24H PRN; Protocol; 0.1 MCG/KG/MIN PRN Reason: TITRATE PER MD ORDER Last Titration: 03/16/17 17:30 Dose: 0 mcg/kg/min, 0 mls/hr Levetiracetam 1,000 mg/ Sodium (Chloride) 110 mls @ 460 mls/hr IV Q12 [facility] Last Admin: 03/17/17 11:26 Dose: 460 mls/hr Levofloxacin/Dextrose (Levaquin 250mg) 250 mg in 50 mls @ 50 mls/hr IVPB DAILY [facility] Last Admin: 03/17/17 11:50 Dose: 50 mls/hr Cefepime HCl (Maxipime 1gm) 1 gm in 100 mls @ 100 mls/hr IVPB Q12H [facility] PRN Reason: Protocol Last Admin: 03/17/17 01:07 Dose: 100 mls/hr Fentanyl Citrate (Fentanyl Citrate/Sodium Chloride 1 Mg/100 Ml) 1,000 mcg in 100 mls @ 15 mls/hr IV .Q6H40M PRN; Protocol; 150 MCG/HR PRN Reason: TITRATE PER MD ORDER Last Titration: 03/17/17 06:36 Dose: 0 mcg/hr, 0 mls/hr Dexmedetomidine HCl (Precedex 4 Mcg/Ml (100 Ml)) 400 mcg in 100 mls @ 5.67 mls/ hr IV .[id number] PRN; Protocol; 0.2 MCG/KG/HR PRN Reason: Sedation Last Admin: 03/17/17 10:21 Dose: 1.5 mcg/kg/hr, 42.524 mls/hr Acetaminophen (Ofirmev) 1,000 mg in 100 mls @ 400 mls/hr IVPB Q6H PRN PRN Reason: Temperature Stop: 03/18/17 21:55 Last Admin: 03/16/17 22:06 Dose: 400 mls/hr Potassium Chloride 40 meq/ (Sodium Chloride) 1,020 mls @ 150 mls/hr IV .Q6H48M [facility] Last Admin: 03/17/17 11:24 Dose: 150 mls/hr Phenytoin 100 mg/ Sodium (Chloride) 52 mls @ 104 mls/hr IVPB BID [facility] Pantoprazole Sodium (Protonix Inj) 40 mg IVP DAILY [facility] Last Admin: 03/17/17 11:28 Dose: 40 mg - Labs Labs: 03/17/17 05:20 03/17/17 05:20 PT 12.0 Seconds (9.9-11.8) H 03/17/17 05:20 INR 1.11 (0.93-1.08) H 03/17/17 05:20 APTT 24.8 Seconds (23.7-30.8) 03/17/17 05:20 - Constitutional Appears: No Acute Distress - Head Exam Head Exam: ATRAUMATIC, NORMAL INSPECTION, NORMOCEPHALIC - Eye Exam Eye Exam: Normal appearance, PERRL Pupil Exam: NORMAL ACCOMODATION, PERRL - ENT Exam ENT Exam: Mucous Membranes Moist - Respiratory Exam Respiratory Exam: Clear to Ausculation Bilateral, NORMAL BREATHING PATTERN. absent: Rales, Rhonchi, Wheezes - Cardiovascular Exam Cardiovascular Exam: REGULAR RHYTHM, +S1, +S2. absent: Gallop, Rubs, Murmur - GI/Abdominal Exam GI & Abdominal Exam: Soft, Normal Bowel Sounds. absent: Tenderness, Mass, Rebound - Neurological Exam Additional comments: Negative for cough, gag or dolls eye reflex. - Skin Skin Exam: Dry, Warm Assessment and Plan - Assessment and Plan (Free Text) Assessment: This is a 36Y M with PMH of anxiety/depression, bipolar disorder, HTN, and substance abuse who was admitted for cardiac arrest who unknown period of time s /p ROSC with hypoxic/ischemic arrest. Patient found to be positive for multiple substances on urine tox (benzo, barbiturate and opiates). Patient is currently intubated and sedated. MRI brain showed showed abnormal signaling of the thalamus bilaterally which is consistent with anoxic brain injury. EEG yesterday and this am showed burst suppression as well as paroxysmal polymorphic delta waves which is consistent with seizure and poor prognosis. Plan: - Pt loaded on Phosphenytoin - Continue Keppra IV - Dilantin 100mg BID added - Continue sedation Patient is in a persistent vegetative state. With the findings of anoxic brain injury on MRI and seizures on EEG, the prognosis is poor. The signing agent and Dr. Bush had an at length discussion with the family about diagnosis and prognosis. Palliative care will be consulted to decide if they would like to do trach/peg versus withdrawal of care. Case seen, discussed and reviewed with Dr. Rene. Skylar Villatoro PGY2 <Ivan Rene - Last Filed: 03/17/17 16:27> Objective - Vital Signs/Intake and Output Vital Signs (last 24 hours): Temp Pulse Resp BP Pulse Ox 97.9 F 45 L 20 140/71 98 03/17/17 04:23 03/17/17 06:20 03/17/17 07:17 03/17/17 06:15 03/17/17 07:17 Intake and Output: 03/17/17 03/17/17 06:59 18:59 Intake Total 5206 375 Output Total 4850 Balance 356 375 - Medications Medications: Current Medications Albuterol/Ipratropium (Duoneb 3 Mg/0.5 Mg (3 Ml) Ud) 3 ml IH Q2H PRN PRN Reason: Shortness of Breath Last Admin: 03/13/17 15:45 Dose: 3 ml Albuterol/Ipratropium (Duoneb 3 Mg/0.5 Mg (3 Ml) Ud) 3 ml IH [id number] [facility] Last Admin: 03/17/17 13:28 Dose: 3 ml Chlorhexidine Gluconate (Peridex) 15 ml PO BID [facility] Last Admin: 03/16/17 18:44 Dose: 15 ml Hydrocortisone Sodium Succinate (Solu-Cortef) 50 mg IVP Q8 [facility] Last Admin: 03/17/17 05:32 Dose: 50 mg NOREPINEPHRINE BIT/0.9 % NACL (Levophed 4 Mg/ 250 Ml Ns Premixed) 4 mg in 250 mls @ 22.5 mls/hr IV .Q11H7M PRN; Protocol; 6 MCG/MIN PRN Reason: TITRATE PER MD ORDER Last Titration: 03/12/17 19:00 Dose: 0 mcg/min, 0 mls/hr Epinephrine HCl 1 mg/ Sodium (Chloride) 51 mls @ 3.06 mls/hr IV .[id number] PRN; Protocol; 1 MCG/MIN PRN Reason: TITRATE PER MD ORDER Last Titration: 03/12/17 19:00 Dose: Infused Vancomycin HCl (Vancomycin 1gm) 1 gm in 250 mls @ 167 mls/hr IVPB DAILY [facility] PRN Reason: Protocol Last Admin: 03/17/17 11:50 Dose: 167 mls/hr Propofol (Diprivan) 1,000 mg in 100 mls @ 3.674 mls/hr IV .Q24H PRN; Protocol; 5 MCG/KG/MIN PRN Reason: TITRATE PER MD ORDER Last Admin: 03/17/17 16:03 Dose: 12 mcg/kg/min, 8.818 mls/hr Cisatracurium Besylate 100 mg/ (Sodium Chloride) 260 mls @ 1.91 mls/hr IV .Q24H PRN; Protocol; 0.1 MCG/KG/MIN PRN Reason: TITRATE PER MD ORDER Last Titration: 03/16/17 17:30 Dose: 0 mcg/kg/min, 0 mls/hr Levetiracetam 1,000 mg/ Sodium (Chloride) 110 mls @ 460 mls/hr IV Q12 [facility] Last Admin: 03/17/17 11:26 Dose: 460 mls/hr Levofloxacin/Dextrose (Levaquin 250mg) 250 mg in 50 mls @ 50 mls/hr IVPB DAILY [facility] Last Admin: 03/17/17 11:50 Dose: 50 mls/hr Cefepime HCl (Maxipime 1gm) 1 gm in 100 mls @ 100 mls/hr IVPB Q12H [facility] PRN Reason: Protocol Last Admin: 03/17/17 01:07 Dose: 100 mls/hr Fentanyl Citrate (Fentanyl Citrate/Sodium Chloride 1 Mg/100 Ml) 1,000 mcg in 100 mls @ 15 mls/hr IV .Q6H40M PRN; Protocol; 150 MCG/HR PRN Reason: TITRATE PER MD ORDER Last Titration: 03/17/17 06:36 Dose: 0 mcg/hr, 0 mls/hr Dexmedetomidine HCl (Precedex 4 Mcg/Ml (100 Ml)) 400 mcg in 100 mls @ 5.67 mls/ hr IV .[id number] PRN; Protocol; 0.2 MCG/KG/HR PRN Reason: Sedation Last Admin: 03/17/17 15:35 Dose: 1.5 mcg/kg/hr, 42.524 mls/hr Acetaminophen (Ofirmev) 1,000 mg in 100 mls @ 400 mls/hr IVPB Q6H PRN PRN Reason: Temperature Stop: 03/18/17 21:55 Last Admin: 03/16/17 22:06 Dose: 400 mls/hr Potassium Chloride 40 meq/ (Sodium Chloride) 1,020 mls @ 150 mls/hr IV .Q6H48M [facility] Last Admin: 03/17/17 11:24 Dose: 150 mls/hr Phenytoin 100 mg/ Sodium (Chloride) 52 mls @ 104 mls/hr IVPB BID [facility] Pantoprazole Sodium (Protonix Inj) 40 mg IVP DAILY [facility] Last Admin: 03/17/17 11:28 Dose: 40 mg - Labs Labs: 03/17/17 05:20 03/17/17 05:20 PT 12.0 Seconds (9.9-11.8) H 03/17/17 05:20 INR 1.11 (0.93-1.08) H 03/17/17 05:20 APTT 24.8 Seconds (23.7-30.8) 03/17/17 05:20 Attending/Attestation - Attestation I have personally seen and examined this patient.: Yes I have fully participated in the care of the patient.: Yes I have reviewed all pertinent clinical information, including history, physical exam and plan: Yes
--- NOTE | 2017-03-17 13:35 | RAD ---
HISTORY: Intubated, f/u COMPARISON: 03/16/2017 FINDINGS: LUNGS: There is an infiltrate in the left lower lobe adjacent to the heart PLEURA: No significant pleural effusion identified, no pneumothorax apparent. CARDIOVASCULAR: Normal. OSSEOUS STRUCTURES: No significant abnormalities. VISUALIZED UPPER ABDOMEN: Normal. OTHER FINDINGS: The endotracheal and nasogastric tubes are in satisfactory position IMPRESSION: New infiltrate in the left lower lobe adjacent to the heart
--- NOTE | 2017-03-17 15:40 | EEG ---
DATE: 03/17/2017 CONDITION OF THE RECORDING: Sleep. DIAGNOSIS: Seizure. MEDICATIONS: Propofol and Precedex. INTERPRETATION: This is a 16-channel international recording. The background activity was composed of 4 to 5 cycles per second. There was limited amount of beta activity of 16 to 20 cycles per seconds seen in this recording. There was increased amount of theta activity of 5 to 7 cycles per second seen in this tracing. There was polymorphic delta activity throughout the recordings. Drowsiness was characterized by mostly theta activity and sleep was characterized by vertex transient waves, sleep spindles, and bilateral slowing. Photic stimulation showed no change in the tracing. There was paroxysmal polymorphic delta activity throughout the recording followed by periods of burst suppression. CONCLUSION: This is an abnormal EEG due to presence of diffuse polymorphic delta throughout the recording followed by periods of burst depression consistent with anoxic brain injury and poor prognosis. This is the same readings for both EEGs done on 03/16/2017 as well as 03/17/2017. Ivan Rene MD
[2017-03-17] MEDS: Chlorhexidine 0.12% Oral Sol 480 ml Bot PO SCH ×2 (16:28→18:16)
--- NOTE | 2017-03-17 20:16 | CP.PCM.PN ---
Subjective - Date & Time of Evaluation Date of Evaluation: 03/17/17 Time of Evaluation: 11:00 - Subjective Subjective: Patient has been having spontaneou eye blinking; otherwise, no purposeful activity reported off sedation; Objective - Vital Signs/Intake and Output Vital Signs (last 24 hours): Temp Pulse Resp BP Pulse Ox 97.9 F 45 L 20 140/71 98 03/17/17 04:23 03/17/17 06:20 03/17/17 07:17 03/17/17 06:15 03/17/17 07:17 Intake and Output: 03/17/17 03/18/17 18:59 06:59 Intake Total 475 Balance 475 - Medications Medications: Current Medications Albuterol/Ipratropium (Duoneb 3 Mg/0.5 Mg (3 Ml) Ud) 3 ml IH Q2H PRN PRN Reason: Shortness of Breath Last Admin: 03/13/17 15:45 Dose: 3 ml Albuterol/Ipratropium (Duoneb 3 Mg/0.5 Mg (3 Ml) Ud) 3 ml IH [id number] [facility] Last Admin: 03/17/17 20:15 Dose: 3 ml Chlorhexidine Gluconate (Peridex) 15 ml PO BID [facility] Last Admin: 03/17/17 18:16 Dose: 15 ml Hydrocortisone Sodium Succinate (Solu-Cortef) 50 mg IVP Q8 [facility] Last Admin: 03/17/17 16:27 Dose: 50 mg NOREPINEPHRINE BIT/0.9 % NACL (Levophed 4 Mg/ 250 Ml Ns Premixed) 4 mg in 250 mls @ 22.5 mls/hr IV .Q11H7M PRN; Protocol; 6 MCG/MIN PRN Reason: TITRATE PER MD ORDER Last Titration: 03/12/17 19:00 Dose: 0 mcg/min, 0 mls/hr Epinephrine HCl 1 mg/ Sodium (Chloride) 51 mls @ 3.06 mls/hr IV .[id number] PRN; Protocol; 1 MCG/MIN PRN Reason: TITRATE PER MD ORDER Last Titration: 03/12/17 19:00 Dose: Infused Vancomycin HCl (Vancomycin 1gm) 1 gm in 250 mls @ 167 mls/hr IVPB DAILY [facility] PRN Reason: Protocol Last Admin: 03/17/17 11:50 Dose: 167 mls/hr Propofol (Diprivan) 1,000 mg in 100 mls @ 3.674 mls/hr IV .Q24H PRN; Protocol; 5 MCG/KG/MIN PRN Reason: TITRATE PER MD ORDER Last Admin: 03/17/17 16:03 Dose: 12 mcg/kg/min, 8.818 mls/hr Cisatracurium Besylate 100 mg/ (Sodium Chloride) 260 mls @ 1.91 mls/hr IV .Q24H PRN; Protocol; 0.1 MCG/KG/MIN PRN Reason: TITRATE PER MD ORDER Last Titration: 03/16/17 17:30 Dose: 0 mcg/kg/min, 0 mls/hr Levetiracetam 1,000 mg/ Sodium (Chloride) 110 mls @ 460 mls/hr IV Q12 [facility] Last Admin: 03/17/17 11:26 Dose: 460 mls/hr Levofloxacin/Dextrose (Levaquin 250mg) 250 mg in 50 mls @ 50 mls/hr IVPB DAILY [facility] Last Admin: 03/17/17 11:50 Dose: 50 mls/hr Cefepime HCl (Maxipime 1gm) 1 gm in 100 mls @ 100 mls/hr IVPB Q12H [facility] PRN Reason: Protocol Last Admin: 03/17/17 16:26 Dose: 100 mls/hr Fentanyl Citrate (Fentanyl Citrate/Sodium Chloride 1 Mg/100 Ml) 1,000 mcg in 100 mls @ 15 mls/hr IV .Q6H40M PRN; Protocol; 150 MCG/HR PRN Reason: TITRATE PER MD ORDER Last Titration: 03/17/17 06:36 Dose: 0 mcg/hr, 0 mls/hr Dexmedetomidine HCl (Precedex 4 Mcg/Ml (100 Ml)) 400 mcg in 100 mls @ 5.67 mls/ hr IV .[id number] PRN; Protocol; 0.2 MCG/KG/HR PRN Reason: Sedation Last Admin: 03/17/17 18:14 Dose: 1 mcg/kg/hr, 28.35 mls/hr Acetaminophen (Ofirmev) 1,000 mg in 100 mls @ 400 mls/hr IVPB Q6H PRN PRN Reason: Temperature Stop: 03/18/17 21:55 Last Admin: 03/16/17 22:06 Dose: 400 mls/hr Potassium Chloride 40 meq/ (Sodium Chloride) 1,020 mls @ 150 mls/hr IV .Q6H48M [facility] Last Admin: 03/17/17 11:24 Dose: 150 mls/hr Phenytoin 100 mg/ Sodium (Chloride) 52 mls @ 104 mls/hr IVPB BID [facility] Pantoprazole Sodium (Protonix Inj) 40 mg IVP DAILY [facility] Last Admin: 03/17/17 11:28 Dose: 40 mg - Labs Labs: 03/17/17 05:20 03/17/17 05:20 PT 12.0 Seconds (9.9-11.8) H 03/17/17 05:20 INR 1.11 (0.93-1.08) H 03/17/17 05:20 APTT 24.8 Seconds (23.7-30.8) 03/17/17 05:20 - Constitutional Appears: Non-toxic, No Acute Distress - Eye Exam Eye Exam: absent: Scleral icterus - ENT Exam ENT Exam: Mucous Membranes Moist - Respiratory Exam Additional comments: congested sounds; - Cardiovascular Exam Cardiovascular Exam: REGULAR RHYTHM, +S1, +S2 - GI/Abdominal Exam GI & Abdominal Exam: Soft. absent: Distended - Extremities Exam Additional comments: no leg edema; - Neurological Exam Neurological Exam: Altered - Skin Skin Exam: Warm. absent: Cyanosis Assessment and Plan (1) Acute renal failure Assessment & Plan: ATN, resolving; polyuria appears to be improving; continue 1/2NS at 100 cc/hr; Status: Acute (2) ARDS (adult respiratory distress syndrome) Assessment & Plan: Continues to come down on FIO2 requirement; will continue IVF as above; Status: Acute (3) Polyuria Assessment & Plan: Resolving, see above; Status: Acute (4) Electrolyte imbalance Assessment & Plan: Hypokalemia improved; continue with 40 meq/L KCl in IVF; hypernatremia worsening ; D5W at 75 cc/hr started (in addition to 1/2NS); Status: Acute
--- NOTE | 2017-03-17 21:57 | CP.PCM.CON ---
History of Present Illness - History of Present Illness History of Present Illness: Surgery Consult. Dr. Reyes History obtained from chart review and family. 36yo M with PMHx of Depression, polysubstance abuse, Bipolar disorder, HTN, Anxiety in the ICU with persistent vegetative state secondary to Cardiac arrest due presumed substance abuse. Patient was found unresponsive in his apartment on 03/11, ACLS initiated and ROSC achieved in [facility] ED. Patient has been intubated since admission and on vent. MRI/EEG findings consistent with persistent vegetative state secondary to anoxic brain injury. Family states that they would like for the patient to obtain Trach/Gastrostomy for comfort. PMHx: Depression, Polysubstance abuse, Bipolar Disorder, HTN, Anxiety PSHx: Unknown. No abdominal surgeries reported Social Hx: Tobacco use, ETOH use, Opiate/Benzo/Princess positive on UDS NKDA Review of Systems - Review of Systems Systems not reviewed;Unavailable: Altered Mental Status, Intubated Past Patient History - Past Medical History & Family History Past Medical History?: Yes Past Family History: Reviewed and not pertinent - Past Social History Smoking Status: Heavy Smoker > 10 Cigarettes Daily Drugs: Other (Positive opiates, benzos, and barbs on UDS) Home Situation {Lives}: With Family - CARDIAC Hx Hypertension: Yes Hx Internal Defibrillator: No - PULMONARY Hx Respiratory Disorders: No Hx Asthma: Yes Hx Bronchitis: No Hx Chronic Obstructive Pulmonary Disease (COPD): No Hx Emphysema: No Hx Pneumonia: No Hx Respiratory Aspiration: No Hx Respiratory Tract Infection: Yes Hx Sleep Apnea: No Hx Tuberculosis: No - NEUROLOGICAL Hx Neurological Disorder: No Hx Alzheimer's Disease: No HX Cerebrovascular Accident: No Hx Dementia: No Hx Dizziness: Yes Hx Meningitis: No Hx Migraine: Yes Hx Parkinson's Disease: No Hx Seizures: No Hx Transient Ischemic Attacks (TIA): No - HEENT Hx HEENT Problems: No Hx Blind: No Hx Cataracts: No Hx Deafness: No Hx Difficulty Chewing: No Hx Epistaxis: No Hx Glaucoma: No Hx Macular Degeneration: No - RENAL Hx Chronic Kidney Disease: No Hx Dialysis: No Hx Kidney Stones: No Hx Neurogenic Bladder: No Hx Pyelonephritis: No Hx Renal (Kidney) Cancer: No Hx Renal Failure: No - ENDOCRINE/METABOLIC Hx Endocrine Disorders: No Hx Adrenal Cancer: No Hx Diabetes Insipidus: No Hx Diabetes Mellitus Type 1: No Hx Diabetes Mellitus Type 2: No Hx Hyperthyroidism: No Hx Hypothyroidism: No Hx Systemic Lupus Erythematosus: No - HEMATOLOGICAL/ONCOLOGICAL Hx Blood Disorders: No Hx AIDS: No Hx Anemia: No Hx Cancer: No Hx Chemotherapy: No Hx Cirrhosis: No Hx Hemophilia: No Hx Hepatitis A: No Hx Hepatitis B: No Hx Hepatitis C: No Hx Human Immunodeficiency Virus (HIV): No Hx Metastesis: No Hx Shingles: No Hx Sickle Cell Disease: No Hx Unexplained Bleeding: No - INTEGUMENTARY Hx Dermatological Problems: No Hx Basil Cell: No Hx Eczema: No Hx Melanoma: No Hx Psoriasis: No Hx Squamous Cell: No - MUSCULOSKELETAL/RHEUMATOLOGICAL Hx Musculoskeletal Disorders: No - GASTROINTESTINAL Other/Comment: Liver damage - GENITOURINARY/GYNECOLOGICAL Hx Genitourinary Disorders: No Hx Hematuria: No Hx Incontinence: No Hx Prostate Problems: No Hx Sexually Transmitted Disorders: No Hx Urinary Tract Infection: No - PSYCHIATRIC Hx Depression: Yes Hx Substance Use: No - SURGICAL HISTORY Hx Surgeries: No Hx Amputation: No Hx Appendectomy: No Hx Cholecystectomy: No Hx Gastric Bypass Surgery: No Hx Hysterectomy: No Hx Joint Replacement: No Hx Kidney Transplant: No Hx Liver Transplant: No Hx Mastectomy: No Hx Musculoskeletal Surgery: No Hx Open Heart Surgery: No Hx Orthopedic Surgery: No Hx Splenectomy: No Hx Valve Replacement: No Meds Allergies/Adverse Reactions: Allergies Allergy/AdvReac Type Severity Reaction Status Date / Time No Known Allergies Allergy Verified 03/11/17 23:03 - Medications Medications: Current Medications Albuterol/Ipratropium (Duoneb 3 Mg/0.5 Mg (3 Ml) Ud) 3 ml IH Q2H PRN PRN Reason: Shortness of Breath Last Admin: 03/13/17 15:45 Dose: 3 ml Albuterol/Ipratropium (Duoneb 3 Mg/0.5 Mg (3 Ml) Ud) 3 ml IH [id number] [facility] Last Admin: 03/17/17 20:15 Dose: 3 ml Chlorhexidine Gluconate (Peridex) 15 ml PO BID [facility] Last Admin: 03/17/17 18:16 Dose: 15 ml Hydrocortisone Sodium Succinate (Solu-Cortef) 50 mg IVP Q8 [facility] Last Admin: 03/17/17 21:30 Dose: 50 mg NOREPINEPHRINE BIT/0.9 % NACL (Levophed 4 Mg/ 250 Ml Ns Premixed) 4 mg in 250 mls @ 22.5 mls/hr IV .Q11H7M PRN; Protocol; 6 MCG/MIN PRN Reason: TITRATE PER MD ORDER Last Titration: 03/12/17 19:00 Dose: 0 mcg/min, 0 mls/hr Epinephrine HCl 1 mg/ Sodium (Chloride) 51 mls @ 3.06 mls/hr IV .[id number] PRN; Protocol; 1 MCG/MIN PRN Reason: TITRATE PER MD ORDER Last Titration: 03/12/17 19:00 Dose: Infused Vancomycin HCl (Vancomycin 1gm) 1 gm in 250 mls @ 167 mls/hr IVPB DAILY [facility] PRN Reason: Protocol Last Admin: 03/17/17 11:50 Dose: 167 mls/hr Propofol (Diprivan) 1,000 mg in 100 mls @ 3.674 mls/hr IV .Q24H PRN; Protocol; 5 MCG/KG/MIN PRN Reason: TITRATE PER MD ORDER Last Admin: 03/17/17 21:11 Dose: 12 mcg/kg/min, 8.818 mls/hr Cisatracurium Besylate 100 mg/ (Sodium Chloride) 260 mls @ 1.91 mls/hr IV .Q24H PRN; Protocol; 0.1 MCG/KG/MIN PRN Reason: TITRATE PER MD ORDER Last Titration: 03/16/17 17:30 Dose: 0 mcg/kg/min, 0 mls/hr Levetiracetam 1,000 mg/ Sodium (Chloride) 110 mls @ 460 mls/hr IV Q12 [facility] Last Admin: 03/17/17 21:27 Dose: 460 mls/hr Levofloxacin/Dextrose (Levaquin 250mg) 250 mg in 50 mls @ 50 mls/hr IVPB DAILY [facility] Last Admin: 03/17/17 11:50 Dose: 50 mls/hr Cefepime HCl (Maxipime 1gm) 1 gm in 100 mls @ 100 mls/hr IVPB Q12H [facility] PRN Reason: Protocol Last Admin: 03/17/17 16:26 Dose: 100 mls/hr Fentanyl Citrate (Fentanyl Citrate/Sodium Chloride 1 Mg/100 Ml) 1,000 mcg in 100 mls @ 15 mls/hr IV .Q6H40M PRN; Protocol; 150 MCG/HR PRN Reason: TITRATE PER MD ORDER Last Titration: 03/17/17 06:36 Dose: 0 mcg/hr, 0 mls/hr Dexmedetomidine HCl (Precedex 4 Mcg/Ml (100 Ml)) 400 mcg in 100 mls @ 5.67 mls/ hr IV .[id number] PRN; Protocol; 0.2 MCG/KG/HR PRN Reason: Sedation Last Admin: 03/17/17 21:14 Dose: 1 mcg/kg/hr, 28.35 mls/hr Acetaminophen (Ofirmev) 1,000 mg in 100 mls @ 400 mls/hr IVPB Q6H PRN PRN Reason: Temperature Stop: 03/18/17 21:55 Last Admin: 03/16/17 22:06 Dose: 400 mls/hr Potassium Chloride 40 meq/ (Sodium Chloride) 1,020 mls @ 150 mls/hr IV .Q6H48M [facility] Last Admin: 03/17/17 21:19 Dose: 150 mls/hr Phenytoin 100 mg/ Sodium (Chloride) 52 mls @ 104 mls/hr IVPB BID [facility] Pantoprazole Sodium (Protonix Inj) 40 mg IVP DAILY [facility] Last Admin: 03/17/17 11:28 Dose: 40 mg Physical Exam - Constitutional Appears: Older Than Stated Age - Eye Exam Additional comments: No spontaneous eye movements noted. - ENT Exam Additional comments: Intubated and on vent: PRVC FiO2 40%, TV 470, PEEP 8, RR 22. NG tube in place - Respiratory Exam Additional comments: intubated on vent - Cardiovascular Exam Cardiovascular Exam: Bradycardia - GI/Abdominal Exam GI & Abdominal Exam: Soft. absent: Firm, Guarding, Rebound, Rigid Additional comments: no visible scars - Extremities Exam Extremities exam: Negative for: calf tenderness, pedal edema Additional comments: SCDs in place - Neurological Exam Additional comments: No response to verbal, tactile or painful stimuli. On sedation currently - Skin Skin Exam: Dry, Intact, Warm Results - Vital Signs Recent Vital Signs: Last Vital Signs Temp 97.9 F 03/17/17 04:23 Pulse 54 L 03/17/17 20:15 Resp 20 03/17/17 07:17 BP 137/72 03/17/17 20:00 Pulse Ox 97 03/17/17 20:15 - Labs Result Diagrams: 03/17/17 05:20 03/17/17 05:20 Labs: Laboratory Results - last 24 hr 03/16/17 03/16/17 03/17/17 23:00 23:50 04:21 WBC RBC Hgb Hct MCV MCH MCHC RDW Plt Count MPV Gran % Lymph % (Auto) [place] % (Auto) Eos % (Auto) Baso % (Auto) Gran # Lymph # [place] # Eos # Baso # PT INR APTT pCO2 pO2 HCO3 ABG pH ABG Total CO2 ABG O2 Saturation ABG O2 Content ABG Base Excess ABG Hemoglobin ABG Carboxyhemoglobin POC ABG HHb (Measured) ABG Methemoglobin ABG O2 Capacity Hgb O2 Saturation FiO2 Sodium 147 Potassium 3.6 Chloride 113 H Carbon Dioxide 22 Anion Gap 16 BUN 55 H Creatinine 2.1 H Est GFR ( Amer) 43 Est GFR (Non-Af Amer) 36 POC Glucose (mg/dL) 146 H 133 H Random Glucose 134 H Calcium 9.0 Phosphorus Magnesium 1.9 Total Bilirubin AST ALT Alkaline Phosphatase Total Protein Albumin Globulin Albumin/Globulin Ratio 03/17/17 03/17/17 03/17/17 05:20 05:20 05:20 WBC 15.2 H D RBC 3.17 L Hgb 9.3 L Hct 27.0 L MCV 85.2 MCH 29.3 MCHC 34.4 RDW 13.8 Plt Count 175 MPV 9.7 Gran % 73.8 H Lymph % (Auto) 16.8 L [place] % (Auto) 8.4 H Eos % (Auto) 0.8 L Baso % (Auto) 0.2 Gran # 11.20 H Lymph # 2.6 [place] # 1.3 H Eos # 0.1 Baso # 0.03 PT 12.0 H INR 1.11 H APTT 24.8 pCO2 pO2 HCO3 ABG pH ABG Total CO2 ABG O2 Saturation ABG O2 Content ABG Base Excess ABG Hemoglobin ABG Carboxyhemoglobin POC ABG HHb (Measured) ABG Methemoglobin ABG O2 Capacity Hgb O2 Saturation FiO2 Sodium 150 H Potassium 3.8 Chloride 117 H Carbon Dioxide 22 Anion Gap 15 BUN 55 H Creatinine 1.8 H Est GFR ( Amer) 51 Est GFR (Non-Af Amer) 42 POC Glucose (mg/dL) Random Glucose 112 H Calcium 9.0 Phosphorus 4.3 Magnesium 2.2 Total Bilirubin 2.2 H AST 66 H ALT 148 H Alkaline Phosphatase 120 Total Protein 6.8 Albumin 3.4 Globulin 3.4 Albumin/Globulin Ratio 1.0 L 03/17/17 03/17/17 06:45 16:08 WBC RBC Hgb Hct MCV MCH MCHC RDW Plt Count MPV Gran % Lymph % (Auto) [place] % (Auto) Eos % (Auto) Baso % (Auto) Gran # Lymph # [place] # Eos # Baso # PT INR APTT pCO2 31 L pO2 172.0 H HCO3 19.2 L ABG pH 7.40 ABG Total CO2 20.2 L ABG O2 Saturation 98.9 H ABG O2 Content 12.5 L ABG Base Excess -4.9 L ABG Hemoglobin 8.9 L ABG Carboxyhemoglobin 1.3 POC ABG HHb (Measured) 1.1 ABG Methemoglobin 1.2 ABG O2 Capacity 12.6 L Hgb O2 Saturation 96.4 FiO2 50.0 Sodium Potassium Chloride Carbon Dioxide Anion Gap BUN Creatinine Est GFR ( Amer) Est GFR (Non-Af Amer) POC Glucose (mg/dL) 131 H Random Glucose Calcium Phosphorus Magnesium Total Bilirubin AST ALT Alkaline Phosphatase Total Protein Albumin Globulin Albumin/Globulin Ratio Assessment & Plan - Assessment and Plan (Free Text) Assessment: 36yo M s/p Cardiac arrest likely secondary to substance abuse; in persistent vegetative state secondary to anoxic brain injury. General surgery consulted for Tracheostomy/Gastrostomy placement. - Consent for procedures obtained and on chart - Possible OR tomorrow (03/18) - Continue medical maximization as per primary and ICU teams Further recs as per Dr. Eric Thorne PGY1 surgery pager: [phone]
[2017-03-18] MEDS: Propofol 10 mg/ml 1,000 MG/100 ML VIAL IV PRN ×6 (00:02→22:12)
[2017-03-18] MEDS: Dexmedetomidine HCl 4mcg/ml 400 MCG/100 ML BOTTLE IV PRN ×5 (00:03→21:33)
[2017-03-18] MEDS: Cefepime 1gm in NS 100ml 1 GM/100 ML BAG IVPB SCH ×2 (02:04→14:28)
[2017-03-18 06:56] LABS: INR 1.13 (0.93-1.08); PARTIAL THROMBOPLASTIN TIME 24.3 Seconds (23.7-30.8)
[2017-03-18 07:00] LABS: ARTERIAL BLOOD GAS HCO3 19.2 mmol/L (21-28); ARTERIAL BLOOD GAS O2 CAPACITY 11.8 mL/dl (16-24); ARTERIAL BLOOD GAS O2 CONTENT 11.7 ML/dl (15-23); ARTERIAL BLOOD GAS PH 7.46 (7.35-7.45); ARTERIAL BLOOD HGB O2 SAT 96.3 % (95.0-98.0); CARBOXYHEMOGLOBIN 1.6 % (0.5-1.5); METHEMOGLOBIN 1.1 % (0.0-3.0)
[2017-03-18 07:03] LABS: BASO # 0.02 K/mm3 (0.0-2.0); BASO % 0.2 % (0.0-3.0); EOS # 0.1 (0.0-0.7); GRAN # 9.07 (1.4-6.5); GRAN % 69.8 % (50.0-68.0); HEMATOCRIT 25.9 % (42.0-52.0); LYMPH # 2.7 (1.2-3.4); LYMPH % 20.8 % (22.0-35.0); MEAN CELL VOLUME 85.8 fl (80.0-105.0); MEAN CORPUSCULAR HEMOGLOBIN 28.8 pg (25.0-35.0); MEAN CORPUSCULAR HGB CONC 33.6 g/dl (31.0-37.0); MONO # 1.1 (0.1-0.6); MONO % 8.2 % (1.0-6.0); RED CELL DISTRIBUTION WIDTH 14.2 % (11.5-14.5)
[2017-03-18] MEDS: Albuterol-Ipratrop 3 mg / 0.5 (3 ml) UD IH SCH ×3 (07:21→21:22)
[2017-03-18 07:27] LABS: ALKALINE PHOSPHATASE 103 U/L (38-126); ALT/SGPT 97 U/L (7-56); AST/SGOT 54 U/L (17-59); BILIRUBIN,TOTAL 1.9 mg/dL (0.2-1.3); BLOOD UREA NITROGEN 49 mg/dL (7-21); CALCIUM 8.7 mg/dL (8.4-10.5); CARBON DIOXIDE 23 mmol/L (21-33); CHLORIDE 118 mmol/L (98-107); GFR AFRICAN-AMERICAN > 60; GLUCOSE,RANDOM 118 mg/dL (70-110); MAGNESIUM 2.2 mg/dL (1.7-2.2); PHOSPHOROUS 4.4 mg/dL (2.5-4.5); POTASSIUM 3.5 mmol/L (3.6-5.0); SODIUM 152 mmol/L (132-148); TOTAL PROTEIN 6.6 g/dL (5.8-8.3)
--- NOTE | 2017-03-18 08:10 | RAD ---
HISTORY: Intubated, f/u COMPARISON: 03/17/2017 FINDINGS: LUNGS: No active pulmonary disease. PLEURA: No significant pleural effusion identified, no pneumothorax apparent. CARDIOVASCULAR: Normal. OSSEOUS STRUCTURES: No significant abnormalities. VISUALIZED UPPER ABDOMEN: Normal. OTHER FINDINGS: Endotracheal tube and nasogastric tube in satisfactory position IMPRESSION: No active disease.
--- NOTE | 2017-03-18 08:38 | CP.PCM.PCO ---
Physician Communication Note - Physician Communication Note Physician Communication Note: OR today for Trach and gastrostomy
[2017-03-18 09:05] LABS: IRON 50 ug/dL (45-180)
[2017-03-18] MEDS: levETIRAcetam 1,000 MG in Sodium Chloride 0.9% 100 ML IV SCH ×2 (09:34→21:42)
[2017-03-18] MEDS: levoFLOXacin 250 mg in D5W 250 MG/50 ML BAG IVPB SCH (09:35)
[2017-03-18] MEDS: Vancomycin 1gm in NS 250ml 1 GM/250 ML BAG IVPB SCH ×2 (09:48→11:16)
[2017-03-18] MEDS: Potassium Chloride 40 MEQ in Sodium Chloride 0.45% 1,000 ML IV SCH ×2 (10:22→23:22)
[2017-03-18] MEDS: Chlorhexidine 0.12% Oral Sol 480 ml Bot PO SCH ×2 (10:25→17:46)
--- NOTE | 2017-03-18 10:59 | CP.PCM.PN ---
<Radha Villatoro - Last Filed: 03/18/17 10:56> Subjective - Date & Time of Evaluation Date of Evaluation: 03/18/17 Time of Evaluation: 10:57 - Subjective Subjective: Neurology Progress Note for Skylar Segovia PGY2 Patient seen and examined at bedside. As per nursing there were no acute overnight events. Patient is intubated and sedated. ROS could not be obtained. Spouse is at bedside and reports she spoke with her family and palliative care and would like to proceed with trach/peg placement. Objective - Vital Signs/Intake and Output Vital Signs (last 24 hours): Temp Pulse Resp BP Pulse Ox 99.4 F 46 L 31 H 144/73 98 03/18/17 04:00 03/18/17 06:00 03/18/17 00:01 03/18/17 08:19 03/18/17 06:00 Intake and Output: 03/18/17 03/18/17 06:59 18:59 Intake Total 2790 300 Output Total 2425 Balance 365 300 - Medications Medications: Current Medications Albuterol/Ipratropium (Duoneb 3 Mg/0.5 Mg (3 Ml) Ud) 3 ml IH Q2H PRN PRN Reason: Shortness of Breath Last Admin: 03/13/17 15:45 Dose: 3 ml Albuterol/Ipratropium (Duoneb 3 Mg/0.5 Mg (3 Ml) Ud) 3 ml IH [id number] [facility] Last Admin: 03/18/17 07:21 Dose: 3 ml Chlorhexidine Gluconate (Peridex) 15 ml PO BID [facility] Last Admin: 03/18/17 10:25 Dose: 15 ml Hydrocortisone Sodium Succinate (Solu-Cortef) 50 mg IVP Q8 [facility] Last Admin: 03/18/17 05:45 Dose: 50 mg NOREPINEPHRINE BIT/0.9 % NACL (Levophed 4 Mg/ 250 Ml Ns Premixed) 4 mg in 250 mls @ 22.5 mls/hr IV .Q11H7M PRN; Protocol; 6 MCG/MIN PRN Reason: TITRATE PER MD ORDER Last Titration: 03/12/17 19:00 Dose: 0 mcg/min, 0 mls/hr Epinephrine HCl 1 mg/ Sodium (Chloride) 51 mls @ 3.06 mls/hr IV .[id number] PRN; Protocol; 1 MCG/MIN PRN Reason: TITRATE PER MD ORDER Last Titration: 03/12/17 19:00 Dose: Infused Vancomycin HCl (Vancomycin 1gm) 1 gm in 250 mls @ 167 mls/hr IVPB DAILY [facility] PRN Reason: Protocol Last Admin: 03/18/17 09:48 Dose: 167 mls/hr Propofol (Diprivan) 1,000 mg in 100 mls @ 3.674 mls/hr IV .Q24H PRN; Protocol; 5 MCG/KG/MIN PRN Reason: TITRATE PER MD ORDER Last Titration: 03/18/17 10:34 Dose: 40 mcg/kg/min, 29.393 mls/hr Cisatracurium Besylate 100 mg/ (Sodium Chloride) 260 mls @ 1.91 mls/hr IV .Q24H PRN; Protocol; 0.1 MCG/KG/MIN PRN Reason: TITRATE PER MD ORDER Last Titration: 03/16/17 17:30 Dose: 0 mcg/kg/min, 0 mls/hr Levetiracetam 1,000 mg/ Sodium (Chloride) 110 mls @ 460 mls/hr IV Q12 [facility] Last Admin: 03/18/17 09:34 Dose: 460 mls/hr Levofloxacin/Dextrose (Levaquin 250mg) 250 mg in 50 mls @ 50 mls/hr IVPB DAILY [facility] Last Admin: 03/18/17 09:35 Dose: 50 mls/hr Cefepime HCl (Maxipime 1gm) 1 gm in 100 mls @ 100 mls/hr IVPB Q12H [facility] PRN Reason: Protocol Last Admin: 03/18/17 02:04 Dose: 100 mls/hr Fentanyl Citrate (Fentanyl Citrate/Sodium Chloride 1 Mg/100 Ml) 1,000 mcg in 100 mls @ 15 mls/hr IV .Q6H40M PRN; Protocol; 150 MCG/HR PRN Reason: TITRATE PER MD ORDER Last Titration: 03/17/17 06:36 Dose: 0 mcg/hr, 0 mls/hr Dexmedetomidine HCl (Precedex 4 Mcg/Ml (100 Ml)) 400 mcg in 100 mls @ 5.67 mls/ hr IV .[id number] PRN; Protocol; 0.2 MCG/KG/HR PRN Reason: Sedation Last Titration: 03/18/17 10:33 Dose: 1.2 mcg/kg/hr, 34.019 mls/hr Acetaminophen (Ofirmev) 1,000 mg in 100 mls @ 400 mls/hr IVPB Q6H PRN PRN Reason: Temperature Stop: 03/18/17 21:55 Last Admin: 03/17/17 22:34 Dose: 400 mls/hr Potassium Chloride 40 meq/ (Sodium Chloride) 1,020 mls @ 100 mls/hr IV .[id number] [facility] Last Admin: 03/18/17 10:22 Dose: 100 mls/hr Potassium Chloride (Potassium Chloride 20 Meq/100 Ml) 20 meq in 100 mls @ 50 mls/hr IVPB Q2H [facility] Stop: 03/18/17 11:44 Last Admin: 03/18/17 10:24 Dose: 50 mls/hr Phenytoin 100 mg/ Sodium (Chloride) 52 mls @ 104 mls/hr IVPB TID [facility] Last Admin: 03/18/17 10:03 Dose: 104 mls/hr Dextrose (Dextrose 5% In Water 1000 Ml) 1,000 mls @ 100 mls/hr IV .Q10H [facility] Pantoprazole Sodium (Protonix Inj) 40 mg IVP DAILY [facility] Last Admin: 03/18/17 09:48 Dose: 40 mg - Labs Labs: 03/18/17 05:45 03/18/17 05:45 PT 12.2 Seconds (9.9-11.8) H 03/18/17 05:45 INR 1.13 (0.93-1.08) H 03/18/17 05:45 APTT 24.3 Seconds (23.7-30.8) 03/18/17 05:45 - Constitutional Appears: No Acute Distress - Head Exam Head Exam: ATRAUMATIC, NORMAL INSPECTION, NORMOCEPHALIC - Eye Exam Eye Exam: PERRL Pupil Exam: PERRL - Respiratory Exam Respiratory Exam: Clear to Ausculation Bilateral, NORMAL BREATHING PATTERN. absent: Rales, Rhonchi, Wheezes - Cardiovascular Exam Cardiovascular Exam: REGULAR RHYTHM, +S1, +S2. absent: Gallop, Rubs, Murmur - GI/Abdominal Exam GI & Abdominal Exam: Soft, Normal Bowel Sounds. absent: Tenderness, Mass, Rebound - Extremities Exam Extremities Exam: Pedal Edema (+ 1 pitting edema bilaterally ) - Neurological Exam Additional comments: Pupillary reflex intact- negative for dolls eye, gag or cough reflex - Skin Skin Exam: Dry, Normal Color, Warm Assessment and Plan - Assessment and Plan (Free Text) Assessment: This is a 36Y M with PMH of anxiety/depression, bipolar disorder, HTN, and substance abuse who was admitted for cardiac arrest who unknown period of time s /p ROSC with hypoxic/ischemic arrest. Patient found to be positive for multiple substances on urine tox (benzo, barbiturate and opiates). Patient is currently intubated and sedated. MRI brain showed showed abnormal signaling of the thalamus bilaterally which is consistent with anoxic brain injury. EEG showed burst suppression as well as paroxysmal polymorphic delta waves which is consistent with seizure and poor prognosis. As per patient's family, they would like to proceed with trach/peg placement. Patient is continuing to have twitching movements in eyes and all 4 extremities. Plan: - Increase Dilantin to 100mg TID - Continue Keppra 100mg BID - Pt will need to continue these seizure medications in LTAC - Proceed with Trach/peg as per surgery Patient is in a persistent vegetative state. With the findings of anoxic brain injury on MRI and seizures on EEG, the prognosis is poor. Case seen, discussed and reviewed with Dr. Rene. Skylar Villatoro PGY2 <Ivan Rene - Last Filed: 03/18/17 11:18> Objective - Vital Signs/Intake and Output Vital Signs (last 24 hours): Temp Pulse Resp BP Pulse Ox 99.4 F 46 L 31 H 144/73 98 03/18/17 04:00 03/18/17 06:00 03/18/17 00:01 03/18/17 08:19 03/18/17 06:00 Intake and Output: 03/18/17 03/18/17 06:59 18:59 Intake Total 2790 300 Output Total 2425 Balance 365 300 - Medications Medications: Current Medications Albuterol/Ipratropium (Duoneb 3 Mg/0.5 Mg (3 Ml) Ud) 3 ml IH Q2H PRN PRN Reason: Shortness of Breath Last Admin: 03/13/17 15:45 Dose: 3 ml Albuterol/Ipratropium (Duoneb 3 Mg/0.5 Mg (3 Ml) Ud) 3 ml IH [id number] [facility] Last Admin: 03/18/17 07:21 Dose: 3 ml Chlorhexidine Gluconate (Peridex) 15 ml PO BID [facility] Last Admin: 03/18/17 10:25 Dose: 15 ml Hydrocortisone Sodium Succinate (Solu-Cortef) 50 mg IVP Q12 [facility] NOREPINEPHRINE BIT/0.9 % NACL (Levophed 4 Mg/ 250 Ml Ns Premixed) 4 mg in 250 mls @ 22.5 mls/hr IV .Q11H7M PRN; Protocol; 6 MCG/MIN PRN Reason: TITRATE PER MD ORDER Last Titration: 03/12/17 19:00 Dose: 0 mcg/min, 0 mls/hr Epinephrine HCl 1 mg/ Sodium (Chloride) 51 mls @ 3.06 mls/hr IV .[id number] PRN; Protocol; 1 MCG/MIN PRN Reason: TITRATE PER MD ORDER Last Titration: 03/12/17 19:00 Dose: Infused Vancomycin HCl (Vancomycin 1gm) 1 gm in 250 mls @ 167 mls/hr IVPB DAILY [facility] PRN Reason: Protocol Last Admin: 03/18/17 11:16 Dose: Not Given Propofol (Diprivan) 1,000 mg in 100 mls @ 3.674 mls/hr IV .Q24H PRN; Protocol; 5 MCG/KG/MIN PRN Reason: TITRATE PER MD ORDER Last Titration: 03/18/17 10:34 Dose: 40 mcg/kg/min, 29.393 mls/hr Cisatracurium Besylate 100 mg/ (Sodium Chloride) 260 mls @ 1.91 mls/hr IV .Q24H PRN; Protocol; 0.1 MCG/KG/MIN PRN Reason: TITRATE PER MD ORDER Last Titration: 03/16/17 17:30 Dose: 0 mcg/kg/min, 0 mls/hr Levetiracetam 1,000 mg/ Sodium (Chloride) 110 mls @ 460 mls/hr IV Q12 [facility] Last Admin: 03/18/17 09:34 Dose: 460 mls/hr Levofloxacin/Dextrose (Levaquin 250mg) 250 mg in 50 mls @ 50 mls/hr IVPB DAILY [facility] Last Admin: 03/18/17 09:35 Dose: 50 mls/hr Cefepime HCl (Maxipime 1gm) 1 gm in 100 mls @ 100 mls/hr IVPB Q12H [facility] PRN Reason: Protocol Last Admin: 03/18/17 02:04 Dose: 100 mls/hr Fentanyl Citrate (Fentanyl Citrate/Sodium Chloride 1 Mg/100 Ml) 1,000 mcg in 100 mls @ 15 mls/hr IV .Q6H40M PRN; Protocol; 150 MCG/HR PRN Reason: TITRATE PER MD ORDER Last Titration: 03/17/17 06:36 Dose: 0 mcg/hr, 0 mls/hr Dexmedetomidine HCl (Precedex 4 Mcg/Ml (100 Ml)) 400 mcg in 100 mls @ 5.67 mls/ hr IV .[id number] PRN; Protocol; 0.2 MCG/KG/HR PRN Reason: Sedation Last Titration: 03/18/17 10:33 Dose: 1.2 mcg/kg/hr, 34.019 mls/hr Acetaminophen (Ofirmev) 1,000 mg in 100 mls @ 400 mls/hr IVPB Q6H PRN PRN Reason: Temperature Stop: 03/18/17 21:55 Last Admin: 03/17/17 22:34 Dose: 400 mls/hr Potassium Chloride 40 meq/ (Sodium Chloride) 1,020 mls @ 100 mls/hr IV .[id number] [facility] Last Admin: 03/18/17 10:22 Dose: 100 mls/hr Potassium Chloride (Potassium Chloride 20 Meq/100 Ml) 20 meq in 100 mls @ 50 mls/hr IVPB Q2H [facility] Stop: 03/18/17 11:44 Last Admin: 03/18/17 10:24 Dose: 50 mls/hr Phenytoin 100 mg/ Sodium (Chloride) 52 mls @ 104 mls/hr IVPB TID [facility] Last Admin: 03/18/17 10:03 Dose: 104 mls/hr Dextrose (Dextrose 5% In Water 1000 Ml) 1,000 mls @ 100 mls/hr IV .Q10H [facility] Pantoprazole Sodium (Protonix Inj) 40 mg IVP DAILY [facility] Last Admin: 03/18/17 09:48 Dose: 40 mg - Labs Labs: 03/18/17 05:45 03/18/17 05:45 PT 12.2 Seconds (9.9-11.8) H 03/18/17 05:45 INR 1.13 (0.93-1.08) H 03/18/17 05:45 APTT 24.3 Seconds (23.7-30.8) 03/18/17 05:45 Attending/Attestation - Attestation I have personally seen and examined this patient.: Yes I have fully participated in the care of the patient.: Yes I have reviewed all pertinent clinical information, including history, physical exam and plan: Yes Notes (Text): 03/18/17 11:17 keppra 1000mg iv bid and dilantin 100 mg tid.
--- NOTE | 2017-03-18 11:33 | CP.PCM.CON ---
History of Present Illness - History of Present Illness History of Present Illness: Palliative consult requested by Dr Irving Falk Reason: Goals of care 36 year old male with history of Bipolar disorder, depression and substance abuse who was found unresponsive at home.It was unclear how long patiet was dwn before being found. Intubated in the field. Patient having seizure activity upon arrival to ED. MRI showed anoxic brain injury. EEG showed burst suppression as well as paroxysmal delta waves which is consistent with seizure disorder and poor prognosis. PMHx: Bipolar disorder depression substance abuse, HTN Family History:Substance abuse, mental illness. Social History Smoker, alcohol,drug misuse.Lives with spouse and son. Advance Care Planning: The patient does not have an Advanced Directive Review of Systems: As per HPI, intubated,unable to obtain Past Patient History - Past Medical History & Family History Past Medical History?: Yes Past Family History: Reviewed and not pertinent - Past Social History Smoking Status: Heavy Smoker > 10 Cigarettes Daily Drugs: Other (Positive opiates, benzos, and barbs on UDS) Home Situation {Lives}: With Family - CARDIAC Hx Hypertension: Yes Hx Internal Defibrillator: No - PULMONARY Hx Respiratory Disorders: No Hx Asthma: Yes Hx Bronchitis: No Hx Chronic Obstructive Pulmonary Disease (COPD): No Hx Emphysema: No Hx Pneumonia: No Hx Respiratory Aspiration: No Hx Respiratory Tract Infection: Yes Hx Sleep Apnea: No Hx Tuberculosis: No - NEUROLOGICAL Hx Neurological Disorder: No Hx Alzheimer's Disease: No HX Cerebrovascular Accident: No Hx Dementia: No Hx Dizziness: Yes Hx Meningitis: No Hx Migraine: Yes Hx Parkinson's Disease: No Hx Seizures: No Hx Transient Ischemic Attacks (TIA): No - HEENT Hx HEENT Problems: No Hx Blind: No Hx Cataracts: No Hx Deafness: No Hx Difficulty Chewing: No Hx Epistaxis: No Hx Glaucoma: No Hx Macular Degeneration: No - RENAL Hx Chronic Kidney Disease: No Hx Dialysis: No Hx Kidney Stones: No Hx Neurogenic Bladder: No Hx Pyelonephritis: No Hx Renal (Kidney) Cancer: No Hx Renal Failure: No - ENDOCRINE/METABOLIC Hx Endocrine Disorders: No Hx Adrenal Cancer: No Hx Diabetes Insipidus: No Hx Diabetes Mellitus Type 1: No Hx Diabetes Mellitus Type 2: No Hx Hyperthyroidism: No Hx Hypothyroidism: No Hx Systemic Lupus Erythematosus: No - HEMATOLOGICAL/ONCOLOGICAL Hx Blood Transfusions: No Hx Blood Transfusion Reaction: No - INTEGUMENTARY Hx Dermatological Problems: No Hx Basil Cell: No Hx Eczema: No Hx Melanoma: No Hx Psoriasis: No Hx Squamous Cell: No - MUSCULOSKELETAL/RHEUMATOLOGICAL Hx Musculoskeletal Disorders: No - GASTROINTESTINAL Other/Comment: Liver damage - GENITOURINARY/GYNECOLOGICAL Hx Genitourinary Disorders: No Hx Hematuria: No Hx Incontinence: No Hx Prostate Problems: No Hx Sexually Transmitted Disorders: No Hx Urinary Tract Infection: No - PSYCHIATRIC Hx Depression: Yes Hx Substance Use: No - SURGICAL HISTORY Hx Surgeries: No - ANESTHESIA Hx Anesthesia Reactions: No Hx Malignant Hyperthermia: No Meds Allergies/Adverse Reactions: Allergies Allergy/AdvReac Type Severity Reaction Status Date / Time No Known Allergies Allergy Verified 03/11/17 23:03 - Medications Medications: Current Medications Albuterol/Ipratropium (Duoneb 3 Mg/0.5 Mg (3 Ml) Ud) 3 ml IH Q2H PRN PRN Reason: Shortness of Breath Last Admin: 03/13/17 15:45 Dose: 3 ml Albuterol/Ipratropium (Duoneb 3 Mg/0.5 Mg (3 Ml) Ud) 3 ml IH [id number] [facility] Last Admin: 03/18/17 07:21 Dose: 3 ml Chlorhexidine Gluconate (Peridex) 15 ml PO BID [facility] Last Admin: 03/18/17 10:25 Dose: 15 ml Hydrocortisone Sodium Succinate (Solu-Cortef) 50 mg IVP Q12 [facility] NOREPINEPHRINE BIT/0.9 % NACL (Levophed 4 Mg/ 250 Ml Ns Premixed) 4 mg in 250 mls @ 22.5 mls/hr IV .Q11H7M PRN; Protocol; 6 MCG/MIN PRN Reason: TITRATE PER MD ORDER Last Titration: 03/12/17 19:00 Dose: 0 mcg/min, 0 mls/hr Epinephrine HCl 1 mg/ Sodium (Chloride) 51 mls @ 3.06 mls/hr IV .[id number] PRN; Protocol; 1 MCG/MIN PRN Reason: TITRATE PER MD ORDER Last Titration: 03/12/17 19:00 Dose: Infused Vancomycin HCl (Vancomycin 1gm) 1 gm in 250 mls @ 167 mls/hr IVPB DAILY [facility] PRN Reason: Protocol Stop: 03/18/17 23:59 Last Admin: 03/18/17 11:16 Dose: Not Given Propofol (Diprivan) 1,000 mg in 100 mls @ 3.674 mls/hr IV .Q24H PRN; Protocol; 5 MCG/KG/MIN PRN Reason: TITRATE PER MD ORDER Last Titration: 03/18/17 10:34 Dose: 40 mcg/kg/min, 29.393 mls/hr Cisatracurium Besylate 100 mg/ (Sodium Chloride) 260 mls @ 1.91 mls/hr IV .Q24H PRN; Protocol; 0.1 MCG/KG/MIN PRN Reason: TITRATE PER MD ORDER Last Titration: 03/16/17 17:30 Dose: 0 mcg/kg/min, 0 mls/hr Levetiracetam 1,000 mg/ Sodium (Chloride) 110 mls @ 460 mls/hr IV Q12 [facility] Last Admin: 03/18/17 09:34 Dose: 460 mls/hr Levofloxacin/Dextrose (Levaquin 250mg) 250 mg in 50 mls @ 50 mls/hr IVPB DAILY [facility] Stop: 03/22/17 11:46 Last Admin: 03/18/17 09:35 Dose: 50 mls/hr Cefepime HCl (Maxipime 1gm) 1 gm in 100 mls @ 100 mls/hr IVPB Q12H [facility] PRN Reason: Protocol Stop: 03/23/17 14:01 Last Admin: 03/18/17 02:04 Dose: 100 mls/hr Fentanyl Citrate (Fentanyl Citrate/Sodium Chloride 1 Mg/100 Ml) 1,000 mcg in 100 mls @ 15 mls/hr IV .Q6H40M PRN; Protocol; 150 MCG/HR PRN Reason: TITRATE PER MD ORDER Last Titration: 03/17/17 06:36 Dose: 0 mcg/hr, 0 mls/hr Dexmedetomidine HCl (Precedex 4 Mcg/Ml (100 Ml)) 400 mcg in 100 mls @ 5.67 mls/ hr IV .[id number] PRN; Protocol; 0.2 MCG/KG/HR PRN Reason: Sedation Last Titration: 03/18/17 10:33 Dose: 1.2 mcg/kg/hr, 34.019 mls/hr Acetaminophen (Ofirmev) 1,000 mg in 100 mls @ 400 mls/hr IVPB Q6H PRN PRN Reason: Temperature Stop: 03/18/17 21:55 Last Admin: 03/17/17 22:34 Dose: 400 mls/hr Potassium Chloride 40 meq/ (Sodium Chloride) 1,020 mls @ 100 mls/hr IV .[id number] [facility] Last Admin: 03/18/17 10:22 Dose: 100 mls/hr Potassium Chloride (Potassium Chloride 20 Meq/100 Ml) 20 meq in 100 mls @ 50 mls/hr IVPB Q2H [facility] Stop: 03/18/17 11:44 Last Admin: 03/18/17 10:24 Dose: 50 mls/hr Phenytoin 100 mg/ Sodium (Chloride) 52 mls @ 104 mls/hr IVPB TID [facility] Last Admin: 03/18/17 10:03 Dose: 104 mls/hr Dextrose (Dextrose 5% In Water 1000 Ml) 1,000 mls @ 100 mls/hr IV .Q10H [facility] Pantoprazole Sodium (Protonix Inj) 40 mg IVP DAILY [facility] Last Admin: 03/18/17 09:48 Dose: 40 mg Physical Exam - Constitutional Appears: No Acute Distress - Head Exam Head Exam: NORMOCEPHALIC - Eye Exam Eye Exam: Normal appearance, PERRL - ENT Exam ENT Exam: Mucous Membranes Moist - Respiratory Exam Respiratory Exam: Clear to Auscultation Bilateral, NORMAL BREATHING PATTERN - Cardiovascular Exam Cardiovascular Exam: REGULAR RHYTHM, +S1, +S2 - GI/Abdominal Exam GI & Abdominal Exam: Normal Bowel Sounds, Soft - Extremities Exam Extremities exam: Positive for: normal inspection, pedal pulses present - Back Exam Back exam: NORMAL INSPECTION - Skin Skin Exam: Dry, Warm Results - Vital Signs Recent Vital Signs: Last Vital Signs Temp 99.4 F 03/18/17 04:00 Pulse 46 L 03/18/17 06:00 Resp 31 H 03/18/17 00:01 BP 144/73 03/18/17 08:19 Pulse Ox 98 03/18/17 06:00 - Labs Result Diagrams: 03/18/17 05:45 03/18/17 05:45 Labs: Laboratory Results - last 24 hr 03/17/17 03/17/17 03/17/17 08:01 11:27 16:08 WBC RBC Hgb Hct MCV MCH MCHC RDW Plt Count MPV Gran % Lymph % (Auto) Hubbard % (Auto) Eos % (Auto) Baso % (Auto) Gran # Lymph # Hubbard # Eos # Baso # PT INR APTT pCO2 pO2 HCO3 ABG pH ABG Total CO2 ABG O2 Saturation ABG O2 Content ABG Base Excess ABG Hemoglobin ABG Carboxyhemoglobin POC ABG HHb (Measured) ABG Methemoglobin ABG O2 Capacity Hgb O2 Saturation FiO2 Sodium Potassium Chloride Carbon Dioxide Anion Gap BUN Creatinine Est GFR ( Amer) Est GFR (Non-Af Amer) POC Glucose (mg/dL) 138 H 111 H 131 H Random Glucose Calcium Phosphorus Magnesium Iron TIBC % Saturation Total Bilirubin AST ALT Alkaline Phosphatase Total Protein Albumin Globulin Albumin/Globulin Ratio 03/17/17 03/18/17 03/18/17 22:03 02:55 05:00 WBC RBC Hgb Hct MCV MCH MCHC RDW Plt Count MPV Gran % Lymph % (Auto) Hubbard % (Auto) Eos % (Auto) Baso % (Auto) Gran # Lymph # Hubbard # Eos # Baso # PT INR APTT pCO2 27 L pO2 133.0 H HCO3 19.2 L ABG pH 7.46 H ABG Total CO2 20.0 L ABG O2 Saturation 99.0 H ABG O2 Content 11.7 L ABG Base Excess -3.9 L ABG Hemoglobin 8.4 L ABG Carboxyhemoglobin 1.6 H POC ABG HHb (Measured) 1.0 ABG Methemoglobin 1.1 ABG O2 Capacity 11.8 L Hgb O2 Saturation 96.3 FiO2 40.0 Sodium Potassium Chloride Carbon Dioxide Anion Gap BUN Creatinine Est GFR ( Amer) Est GFR (Non-Af Amer) POC Glucose (mg/dL) 136 H 150 H Random Glucose Calcium Phosphorus Magnesium Iron TIBC % Saturation Total Bilirubin AST ALT Alkaline Phosphatase Total Protein Albumin Globulin Albumin/Globulin Ratio 03/18/17 03/18/17 03/18/17 05:45 05:45 05:45 WBC 13.0 H RBC 3.02 L Hgb 8.7 L Hct 25.9 L MCV 85.8 MCH 28.8 MCHC 33.6 RDW 14.2 Plt Count 173 MPV 10.0 Gran % 69.8 H Lymph % (Auto) 20.8 L Hubbard % (Auto) 8.2 H Eos % (Auto) 1.0 L Baso % (Auto) 0.2 Gran # 9.07 H Lymph # 2.7 Hubbard # 1.1 H Eos # 0.1 Baso # 0.02 PT 12.2 H INR 1.13 H APTT 24.3 pCO2 pO2 HCO3 ABG pH ABG Total CO2 ABG O2 Saturation ABG O2 Content ABG Base Excess ABG Hemoglobin ABG Carboxyhemoglobin POC ABG HHb (Measured) ABG Methemoglobin ABG O2 Capacity Hgb O2 Saturation FiO2 Sodium 152 H Potassium 3.5 L Chloride 118 H Carbon Dioxide 23 Anion Gap 15 BUN 49 H Creatinine 1.5 Est GFR ( Amer) > 60 Est GFR (Non-Af Amer) 52 POC Glucose (mg/dL) Random Glucose 118 H Calcium 8.7 Phosphorus 4.4 Magnesium 2.2 Iron TIBC % Saturation Total Bilirubin 1.9 H AST 54 ALT 97 H Alkaline Phosphatase 103 Total Protein 6.6 Albumin 3.3 Globulin 3.3 Albumin/Globulin Ratio 1.0 L 03/18/17 03/18/17 07:19 Unknown WBC RBC Hgb Hct MCV MCH MCHC RDW Plt Count MPV Gran % Lymph % (Auto) Hubbard % (Auto) Eos % (Auto) Baso % (Auto) Gran # Lymph # Hubbard # Eos # Baso # PT INR APTT pCO2 pO2 HCO3 ABG pH ABG Total CO2 ABG O2 Saturation ABG O2 Content ABG Base Excess ABG Hemoglobin ABG Carboxyhemoglobin POC ABG HHb (Measured) ABG Methemoglobin ABG O2 Capacity Hgb O2 Saturation FiO2 Sodium Potassium Chloride Carbon Dioxide Anion Gap BUN Creatinine Est GFR ( Amer) Est GFR (Non-Af Amer) POC Glucose (mg/dL) 146 H Random Glucose Calcium Phosphorus Magnesium Iron 50 TIBC 204 L % Saturation 24 Total Bilirubin AST ALT Alkaline Phosphatase Total Protein Albumin Globulin Albumin/Globulin Ratio Assessment & Plan - Assessment and Plan (Free Text) Assessment: 36 year old male with hsoty of bipolar dosorder, depression multi substance abuse who was found unresponsive at home. He is intubated and sedated.As per neurology,patient is in a persistent vegetative state. With the findings of anoxic brain injury on MRI and seizures on EEG, the prognosis is poor. The burr filer Dr. Shazia Bush had a lengthy discussion with the family about diagnosis and prognosis. I also met with patient's and son. Family is aware that chance for any meaningful recovery is very poor and that patent will likely remain in a vegetative state. aware that if PEG and trach done, patient will require jail skilled nursing care in LTAC > NH facility. Alternative option for withdrawal of treatment and allowing for natural also discussed. Family holds hope and wants to give the patient more time to see if there is possibility of improvement. Ramifications of jail skilled nursing care explained in detail. Family has decided to proceed with Trach/PEG Time spent in goals of care discussion with family, 40 minutes Plan: Palliative support and counseling Goals of care
--- NOTE | 2017-03-18 13:18 | CP.PCM.PN ---
<Nathaniel Meek - Last Filed: 03/18/17 13:14> Subjective - Date & Time of Evaluation Date of Evaluation: 03/18/17 Time of Evaluation: 13:14 - Subjective Subjective: Pt seen and examined at bedside. Pt with no acute overnight events. Pt remains intubated and sedated in ICU. Pt had a seizure while being weaned off sedation yesterday. Family is at bedside. Objective - Vital Signs/Intake and Output Vital Signs (last 24 hours): Temp Pulse Resp BP Pulse Ox 99 F 50 L 31 H 145/100 H 100 03/18/17 12:00 03/18/17 12:10 03/18/17 00:01 03/18/17 12:00 03/18/17 12:10 Intake and Output: 03/18/17 03/18/17 06:59 18:59 Intake Total 2790 300 Output Total 2425 Balance 365 300 - Medications Medications: Current Medications Albuterol/Ipratropium (Duoneb 3 Mg/0.5 Mg (3 Ml) Ud) 3 ml IH Q2H PRN PRN Reason: Shortness of Breath Last Admin: 03/13/17 15:45 Dose: 3 ml Albuterol/Ipratropium (Duoneb 3 Mg/0.5 Mg (3 Ml) Ud) 3 ml IH [id number] [facility] Last Admin: 03/18/17 07:21 Dose: 3 ml Chlorhexidine Gluconate (Peridex) 15 ml PO BID [facility] Last Admin: 03/18/17 10:25 Dose: 15 ml Hydrocortisone Sodium Succinate (Solu-Cortef) 50 mg IVP Q12 [facility] NOREPINEPHRINE BIT/0.9 % NACL (Levophed 4 Mg/ 250 Ml Ns Premixed) 4 mg in 250 mls @ 22.5 mls/hr IV .Q11H7M PRN; Protocol; 6 MCG/MIN PRN Reason: TITRATE PER MD ORDER Last Titration: 03/12/17 19:00 Dose: 0 mcg/min, 0 mls/hr Epinephrine HCl 1 mg/ Sodium (Chloride) 51 mls @ 3.06 mls/hr IV .[id number] PRN; Protocol; 1 MCG/MIN PRN Reason: TITRATE PER MD ORDER Last Titration: 03/12/17 19:00 Dose: Infused Vancomycin HCl (Vancomycin 1gm) 1 gm in 250 mls @ 167 mls/hr IVPB DAILY [facility] PRN Reason: Protocol Stop: 03/18/17 23:59 Last Admin: 03/18/17 11:16 Dose: Not Given Propofol (Diprivan) 1,000 mg in 100 mls @ 3.674 mls/hr IV .Q24H PRN; Protocol; 5 MCG/KG/MIN PRN Reason: TITRATE PER MD ORDER Last Titration: 03/18/17 10:34 Dose: 40 mcg/kg/min, 29.393 mls/hr Cisatracurium Besylate 100 mg/ (Sodium Chloride) 260 mls @ 1.91 mls/hr IV .Q24H PRN; Protocol; 0.1 MCG/KG/MIN PRN Reason: TITRATE PER MD ORDER Last Titration: 03/16/17 17:30 Dose: 0 mcg/kg/min, 0 mls/hr Levetiracetam 1,000 mg/ Sodium (Chloride) 110 mls @ 460 mls/hr IV Q12 [facility] Last Admin: 03/18/17 09:34 Dose: 460 mls/hr Levofloxacin/Dextrose (Levaquin 250mg) 250 mg in 50 mls @ 50 mls/hr IVPB DAILY [facility] Stop: 03/22/17 11:46 Last Admin: 03/18/17 09:35 Dose: 50 mls/hr Cefepime HCl (Maxipime 1gm) 1 gm in 100 mls @ 100 mls/hr IVPB Q12H [facility] PRN Reason: Protocol Stop: 03/23/17 14:01 Last Admin: 03/18/17 02:04 Dose: 100 mls/hr Fentanyl Citrate (Fentanyl Citrate/Sodium Chloride 1 Mg/100 Ml) 1,000 mcg in 100 mls @ 15 mls/hr IV .Q6H40M PRN; Protocol; 150 MCG/HR PRN Reason: TITRATE PER MD ORDER Last Titration: 03/17/17 06:36 Dose: 0 mcg/hr, 0 mls/hr Dexmedetomidine HCl (Precedex 4 Mcg/Ml (100 Ml)) 400 mcg in 100 mls @ 5.67 mls/ hr IV .[id number] PRN; Protocol; 0.2 MCG/KG/HR PRN Reason: Sedation Last Titration: 03/18/17 10:33 Dose: 1.2 mcg/kg/hr, 34.019 mls/hr Acetaminophen (Ofirmev) 1,000 mg in 100 mls @ 400 mls/hr IVPB Q6H PRN PRN Reason: Temperature Stop: 03/18/17 21:55 Last Admin: 03/17/17 22:34 Dose: 400 mls/hr Potassium Chloride 40 meq/ (Sodium Chloride) 1,020 mls @ 100 mls/hr IV .[id number] [facility] Last Admin: 03/18/17 10:22 Dose: 100 mls/hr Phenytoin 100 mg/ Sodium (Chloride) 52 mls @ 104 mls/hr IVPB TID [facility] Last Admin: 03/18/17 10:03 Dose: 104 mls/hr Dextrose (Dextrose 5% In Water 1000 Ml) 1,000 mls @ 100 mls/hr IV .Q10H [facility] Pantoprazole Sodium (Protonix Inj) 40 mg IVP DAILY [facility] Last Admin: 03/18/17 09:48 Dose: 40 mg - Labs Labs: 03/18/17 05:45 03/18/17 05:45 PT 12.2 Seconds (9.9-11.8) H 03/18/17 05:45 INR 1.13 (0.93-1.08) H 03/18/17 05:45 APTT 24.3 Seconds (23.7-30.8) 03/18/17 05:45 - Constitutional Appears: Toxic, No Acute Distress - Head Exam Head Exam: ATRAUMATIC, NORMAL INSPECTION, NORMOCEPHALIC - ENT Exam ENT Exam: Mucous Membranes Moist Additional comments: ET tube in place - Respiratory Exam Respiratory Exam: Decreased Breath Sounds. absent: Rales, Rhonchi, Wheezes - Cardiovascular Exam Cardiovascular Exam: RRR, +S1, +S2 - GI/Abdominal Exam GI & Abdominal Exam: Soft, Normal Bowel Sounds. absent: Tenderness - Extremities Exam Extremities Exam: Normal Inspection. absent: Calf Tenderness, Pedal Edema - Neurological Exam Additional comments: Sedated - Psychiatric Exam Psychiatric exam: Normal Affect, Normal Mood - Skin Skin Exam: Intact, Normal Color, Warm Assessment and Plan - Assessment and Plan (Free Text) Plan: 36 y/o male with PMH of substance abuse presents with drug overdose, with multiple substances (+BZDs, barbiturate, Opiates), s/p ROSC after cardiac arrest x 3, unknown initial downtime at home. Pt will have Tracheostomy and G- tube placement by surgery. Prognosis discussed with family, who are still hopeful patient will have a meaningful recovery. Neuro: -Patient intubated and unresponsive on sedative medication -Continue to Maintain temp ~92-94F -Neurochecks q2h -Urine toxicology positive for opiates, barbiturates and benzos -CT Head (-). Seen by Neurology. -Repeat EEG demonstrates anoxic brain injury and poor prognosis. -Brain MRI showed anoxic injury in thalamic region bilaterally. -Will continue to attempt weaning trials -Continue Seizure precautions -Neuro status hard to determine due to sedation. Will reassess once sedation is weaned off. Cardio: -Continue propofol, Cisatracurium, and Midozalam with goal MAP > 70 -EKG reviewed; atrial fibrillation with slow ventricular response (51bpm), nonspecific intraventricular block -F/U with Cardiology recs. Pulm: -ABG and CXR reviewed -patient pO2 stable. Patient's FiO2 remains at 40%. Will monitor closely. -Continue serial CXR and ABG. GI: -NPO -NGT -Protonix Renal: -Continue 1/2 NS w/40meq KCL @ 100cc/hr. -Will continue to monitor and treat electrolyte abnormalities as indicated -Monitor I's and O's Endo: -Fingersticks q2h -Maintain euglycemia between 140-180's -Stress dose steroids, tapering ID: -Afebrile, leukocytosis improving -Cultures negative at this time -Continue with levaquin, Cefepime, and vancomycin. GI/DVT Prophylaxis -Protonix/SCD's Fantasma PGY-2 <Raheel Espitia - Last Filed: 03/18/17 15:45> Objective - Vital Signs/Intake and Output Vital Signs (last 24 hours): Temp Pulse Resp BP Pulse Ox 99 F 54 L 31 H 153/100 H 100 03/18/17 12:00 03/18/17 15:00 03/18/17 00:01 03/18/17 15:00 03/18/17 15:00 Intake and Output: 03/18/17 03/18/17 06:59 18:59 Intake Total 2790 350 Output Total 2425 Balance 365 350 - Medications Medications: Current Medications Albuterol/Ipratropium (Duoneb 3 Mg/0.5 Mg (3 Ml) Ud) 3 ml IH Q2H PRN PRN Reason: Shortness of Breath Last Admin: 03/13/17 15:45 Dose: 3 ml Albuterol/Ipratropium (Duoneb 3 Mg/0.5 Mg (3 Ml) Ud) 3 ml IH [id number] [facility] Last Admin: 03/18/17 13:31 Dose: 3 ml Chlorhexidine Gluconate (Peridex) 15 ml PO BID [facility] Last Admin: 03/18/17 10:25 Dose: 15 ml Hydrocortisone Sodium Succinate (Solu-Cortef) 50 mg IVP Q12 [facility] NOREPINEPHRINE BIT/0.9 % NACL (Levophed 4 Mg/ 250 Ml Ns Premixed) 4 mg in 250 mls @ 22.5 mls/hr IV .Q11H7M PRN; Protocol; 6 MCG/MIN PRN Reason: TITRATE PER MD ORDER Last Titration: 03/12/17 19:00 Dose: 0 mcg/min, 0 mls/hr Epinephrine HCl 1 mg/ Sodium (Chloride) 51 mls @ 3.06 mls/hr IV .[id number] PRN; Protocol; 1 MCG/MIN PRN Reason: TITRATE PER MD ORDER Last Titration: 03/12/17 19:00 Dose: Infused Vancomycin HCl (Vancomycin 1gm) 1 gm in 250 mls @ 167 mls/hr IVPB DAILY [facility] PRN Reason: Protocol Stop: 03/18/17 23:59 Last Admin: 03/18/17 11:16 Dose: Not Given Propofol (Diprivan) 1,000 mg in 100 mls @ 3.674 mls/hr IV .Q24H PRN; Protocol; 5 MCG/KG/MIN PRN Reason: TITRATE PER MD ORDER Last Admin: 03/18/17 14:45 Dose: 40 mcg/kg/min, 29.393 mls/hr Cisatracurium Besylate 100 mg/ (Sodium Chloride) 260 mls @ 1.91 mls/hr IV .Q24H PRN; Protocol; 0.1 MCG/KG/MIN PRN Reason: TITRATE PER MD ORDER Last Titration: 03/16/17 17:30 Dose: 0 mcg/kg/min, 0 mls/hr Levetiracetam 1,000 mg/ Sodium (Chloride) 110 mls @ 460 mls/hr IV Q12 [facility] Last Admin: 03/18/17 09:34 Dose: 460 mls/hr Levofloxacin/Dextrose (Levaquin 250mg) 250 mg in 50 mls @ 50 mls/hr IVPB DAILY [facility] Stop: 03/22/17 11:46 Last Admin: 03/18/17 09:35 Dose: 50 mls/hr Cefepime HCl (Maxipime 1gm) 1 gm in 100 mls @ 100 mls/hr IVPB Q12H [facility] PRN Reason: Protocol Stop: 03/23/17 14:01 Last Admin: 03/18/17 14:28 Dose: 100 mls/hr Fentanyl Citrate (Fentanyl Citrate/Sodium Chloride 1 Mg/100 Ml) 1,000 mcg in 100 mls @ 15 mls/hr IV .Q6H40M PRN; Protocol; 150 MCG/HR PRN Reason: TITRATE PER MD ORDER Last Titration: 03/17/17 06:36 Dose: 0 mcg/hr, 0 mls/hr Dexmedetomidine HCl (Precedex 4 Mcg/Ml (100 Ml)) 400 mcg in 100 mls @ 5.67 mls/ hr IV .[id number] PRN; Protocol; 0.2 MCG/KG/HR PRN Reason: Sedation Last Titration: 03/18/17 10:33 Dose: 1.2 mcg/kg/hr, 34.019 mls/hr Acetaminophen (Ofirmev) 1,000 mg in 100 mls @ 400 mls/hr IVPB Q6H PRN PRN Reason: Temperature Stop: 03/18/17 21:55 Last Admin: 03/17/17 22:34 Dose: 400 mls/hr Potassium Chloride 40 meq/ (Sodium Chloride) 1,020 mls @ 100 mls/hr IV .[id number] [facility] Last Admin: 03/18/17 10:22 Dose: 100 mls/hr Phenytoin 100 mg/ Sodium (Chloride) 52 mls @ 104 mls/hr IVPB TID [facility] Last Admin: 03/18/17 15:06 Dose: 104 mls/hr Dextrose (Dextrose 5% In Water 1000 Ml) 1,000 mls @ 100 mls/hr IV .Q10H [facility] Pantoprazole Sodium (Protonix Inj) 40 mg IVP DAILY [facility] Last Admin: 03/18/17 09:48 Dose: 40 mg - Labs Labs: 03/18/17 05:45 03/18/17 05:45 PT 12.2 Seconds (9.9-11.8) H 03/18/17 05:45 INR 1.13 (0.93-1.08) H 03/18/17 05:45 APTT 24.3 Seconds (23.7-30.8) 03/18/17 05:45 Attending/Attestation - Attestation I have personally seen and examined this patient.: Yes I have fully participated in the care of the patient.: Yes I have reviewed all pertinent clinical information, including history, physical exam and plan: Yes Notes (Text): 03/18/17 15:42 36 year old male with past medical history of depression, anxiety, hypertension , and substance abuse who presented with cardiac arrest secondary to suspected drug overdose. Urine drug screen was positive for opiates, barbituates and benzodiazepines. He is currently intubated. Continue with vent management and weaning trials as per cellular phone repairer. MRI brain showed signs of anoxic injury. EEG was reviewed as well. Neurology is following the patient. He was also found to have renal insufficiency and elevated LFTs which have improved. He is also on stress dose steroids and iv antibiotics. Leukocytosis noted possibly due to steroids which is also improving. Surgery evaluation was requested for trach/peg. Raheel Espitia MD Hospitalist.
--- NOTE | 2017-03-18 13:21 | CP.CCUPN ---
<Jerman Kilgore - Last Filed: 03/18/17 13:40> CCU Subjective - Physician Review Subjective (Free Text): 03/18/17 13:40 Patient seen and examined at bedside in the ICU. No acute events reported overnight. Patient remains intubated, sedated, and off paralytics. Pending a Trach and Gastrostomy tube placement today, as per family's wishes, so that he might be placed in a long-term care setting. No signs of active seizure during exam. CCU Objective - Vital Signs / Intake & Output Vital Signs (Last 4 hours): Vital Signs Temp Pulse BP Pulse Ox 03/18/17 12:10 50 L 100 03/18/17 12:00 99 F 53 L 145/100 H 100 03/18/17 11:50 45 L 98 03/18/17 11:45 46 L 142/73 98 03/18/17 11:40 45 L 98 03/18/17 11:30 46 L 142/67 98 03/18/17 11:20 47 L 97 03/18/17 11:15 48 L 140/69 97 03/18/17 11:10 46 L 97 03/18/17 11:00 48 L 141/66 98 03/18/17 10:50 51 L 99 03/18/17 10:45 52 L 140/70 99 03/18/17 10:40 55 L 98 03/18/17 10:31 63 144/80 100 03/18/17 10:30 87 95 03/18/17 10:20 63 96 03/18/17 10:15 65 149/57 L 97 03/18/17 10:10 63 99 03/18/17 10:00 65 134/87 100 03/18/17 09:50 67 98 03/18/17 09:45 67 149/76 94 L 03/18/17 09:40 67 88 L 03/18/17 09:30 67 150/65 90 L Intake and Output (Last 8hrs): Intake & Output 03/17/17 03/18/17 03/18/17 22:59 06:59 14:59 Intake Total 400 2590 300 Output Total 2425 Balance 400 165 300 Weight 104.145 kg 103.873 kg Intake: IV 400 2590 300 Right Femoral 2090 Output: Urine 2425 Urethral ([place]) 2425 - Physical Exam Head: Positive for: Atraumatic, Normocephalic. Negative for: Ecchymosis, Abrasion, Laceration Pupils: Positive for: Other (pinpoint pupils, not reactive to direct light challenge) Extroacular Muscles: Positive for: Other (unable to assess, not moving eyes spontaneously, no avoidance of direct light challenge for PERRL assessment) Conjunctiva: Negative for: Injected, Icteric Mouth: Positive for: Moist Mucous Membranes, Other (ETT in place with bite guard ). Negative for: Drooling Nose (External): Positive for: Atraumatic, Other (NGT in place). Negative for: Abrasion, Contusion, Laceration Neck: Positive for: Trachea Midline. Negative for: JVD, Lymphadenopathy Respiratory/Chest: Positive for: Clear to Auscultation, Good Air Exchange, Rales (mild-moderate rales in all breath [place], unchanged). Negative for: Accessory Muscle Use, Wheezes, Tachypneic Cardiovascular: Positive for: Regular Rate and Rhythm, Normal S1, S2. Negative for: Murmurs, Irregular Rhythm, Tachycardic, Bradycardic Abdomen: Negative for: Distention (obese but not distended, soft on palpation), Normal Bowel Sounds (diminished bowel sounds), Mass/Organomegaly Upper Extremity: Positive for: Normal Inspection. Negative for: Cyanosis, Edema , Normal ROM, NORMAL PULSES (faintly palpable radials +1), Swelling, Erythema, Deformity Lower Extremity: Positive for: Normal Inspection. Negative for: Edema, NORMAL PULSES (unable to palpate bilateral dorsalis pedis or posterior tibials), Cyanosis, Swelling, Erythema, Deformity Neurological: Positive for: Other (intubated and sedated, now off paralytics for ~12 hrs). Negative for: GCS=15 (GCS 3 (E1 V1t M1)), CN II-XII Intact, Speech Normal, Motor Func Grossly Intact Skin: Positive for: Warm, Dry, Normal Color Psychiatric: Positive for: Other (sedated and intubated, unable to assess). Negative for: Alert, Oriented x 3, Normal Insight, Normal Concentration, Normal Affect, Normal Mood - Medications Active Medications: Active Medications Generic Name Dose Route Start Last Admin Trade Name Freq PRN Reason Stop Dose Admin Albuterol/Ipratropium 3 ml 03/13/17 15:07 03/13/17 15:45 Duoneb 3 Mg/0.5 Mg (3 Ml) Ud IH 3 ml Q2H PRN Administration Shortness of Breath Albuterol/Ipratropium 3 ml 03/13/17 20:00 03/18/17 07:21 Duoneb 3 Mg/0.5 Mg (3 Ml) Ud IH 3 ml [id number] MARICHUY Administration Chlorhexidine Gluconate 15 ml 03/13/17 10:00 03/18/17 10:25 Peridex PO 15 ml BID MAR[place]UY Administration Hydrocortisone Sodium Succinate 50 mg 03/18/17 22:00 Solu-Cortef IVP Q12 MAR[place]UY NOREPINEPHRINE BIT/0.9 % NACL 4 mg in 250 mls @ 22.5 mls/hr 03/11/17 23:55 19:00 Levophed 4 Mg/ 250 Ml Ns Premixed IV 0 mcg/min .[id number] PRN 0 mls/hr TITRATE PER MD ORDER Titration Protocol 6 MCG/MIN Epinephrine HCl 1 mg/ Sodium 51 mls @ 3.06 mls/hr 03/12/17 00:35 03/12/17 19: 00 Chloride IV Infused .[id number] PRN Titration TITRATE PER MD ORDER Protocol 1 MCG/MIN Vancomycin HCl 1 gm in 250 mls @ 167 mls/hr 03/12/17 10:00 03/18/17 11:16 Vancomycin 1gm IVPB 03/18/17 23:59 Not Given DAILY MAR[facility]UY Protocol Propofol 1,000 mg in 100 mls @ 3.674 mls/hr 03/12/17 07:41 03/18/17 10:34 Diprivan IV 40 mcg/kg/min .Q24H PRN 29.393 mls/hr TITRATE PER MD ORDER Titration Protocol 5 MCG/KG/MIN Cisatracurium Besylate 100 mg/ 260 mls @ 1.91 mls/hr 03/12/17 07:52 03/16/17 17:30 Sodium Chloride IV 0 mcg/kg/min .Q24H PRN 0 mls/hr TITRATE PER MD ORDER Titration Protocol 0.1 MCG/KG/MIN Levetiracetam 1,000 mg/ Sodium 110 mls @ 460 mls/hr 03/12/17 22:00 03/18/17 09:34 Chloride IV 460 mls/hr Q12 MAR[place]UY Administration Levofloxacin/Dextrose 250 mg in 50 mls @ 50 mls/hr 03/14/17 11:45 03/18/17 09 :35 Levaquin 250mg IVPB 03/22/17 11:46 50 mls/hr DAILY MAR[place]Y Administration Cefepime HCl 1 gm in 100 mls @ 100 mls/hr 03/15/17 14:00 03/18/17 02:04 Maxipime 1gm IVPB 03/23/17 14:01 100 mls/hr Q12H MAR[place]UY Administration Protocol Fentanyl Citrate 1,000 mcg in 100 mls @ 15 mls/hr 03/16/17 05:41 03/17/17 06: 36 Fentanyl Citrate/Sodium Chloride 1 Mg/100 Ml IV 0 mcg/hr .[id number] PRN 0 mls/hr TITRATE PER MD ORDER Titration Protocol 150 MCG/HR Dexmedetomidine HCl 400 mcg in 100 mls @ 5.67 mls/hr 03/16/17 07:44 03/18/17 10:33 Precedex 4 Mcg/Ml (100 Ml) IV 1.2 mcg/kg/hr .[id number] PRN 34.019 mls/hr Sedation Titration Protocol 0.2 MCG/KG/HR Acetaminophen 1,000 mg in 100 mls @ 400 mls/hr 03/16/17 21:54 03/17/17 22:34 Ofirmev IVPB 03/18/17 21:55 400 mls/hr Q6H PRN Administration Temperature Potassium Chloride 40 meq/ 1,020 mls @ 100 mls/hr 03/17/17 21:40 03/18/17 10: 22 Sodium Chloride IV 100 mls/hr .[id number] MAR[place]UY Administration Phenytoin 100 mg/ Sodium 52 mls @ 104 mls/hr 03/18/17 10:00 03/18/17 10:03 Chloride IVPB 104 mls/hr TID MAR[place]UY Administration Dextrose 1,000 mls @ 100 mls/hr 03/18/17 10:05 Dextrose 5% In Water 1000 Ml IV .Q10H [place]Y Pantoprazole Sodium 40 mg 03/12/17 10:00 03/18/17 09:48 Protonix Inj IVP 40 mg DAILY MARICHUY Administration - Patient Studies Lab Studies: Microbiology Studies 03/16/17 12:13 Gram Stain - Final Sputum Sputum Culture - Final Yeast Species 03/16/17 23:00 Urine Culture - Final Urine,[place] No Growth (<1,000 CFU/ML) 03/16/17 22:00 Blood Culture - Preliminary Blood-Venous NO GROWTH AFTER 24 HOURS 03/16/17 21:30 Blood Culture - Preliminary Blood-Venous NO GROWTH AFTER 24 HOURS Lab Studies 03/18/17 03/18/17 03/18/17 Range/Units Unknown Unknown 08:00 WBC (4.5-11.0) 10^3/ul RBC (3.5-6.1) 10^6/uL Hgb (14.0-18.0) g/dL Hct (42.0-52.0) % MCV (80.0-105.0) fl MCH (25.0-35.0) pg MCHC (31.0-37.0) g/dl RDW (11.5-14.5) % Plt Count (120.0-450.0) 10^3/uL MPV (7.0-11.0) fl Gran % (50.0-68.0) % Lymph % (Auto) (22.0-35.0) % Glades % (Auto) (1.0-6.0) % Eos % (Auto) (1.5-5.0) % Baso % (Auto) (0.0-3.0) % Gran # (1.4-6.5) Lymph # (1.2-3.4) Glades # (0.1-0.6) Eos # (0.0-0.7) Baso # (0.0-2.0) K/mm3 PT (9.9-11.8) Seconds INR (0.93-1.08) APTT (23.7-30.8) Seconds pCO2 (35-45) mm/Hg pO2 (80-100) mm/Hg HCO3 (21-28) mmol/L ABG pH (7.35-7.45) ABG Total CO2 (22-28) mmol.L ABG O2 Saturation (95-98) % ABG O2 Content (15-23) ML/dl ABG Base Excess (-2.0-3.0) mmol/L ABG Hemoglobin (11.7-17.4) g/dL ABG Carboxyhemoglobin (0.5-1.5) % POC ABG HHb (Measured) (0-5) % ABG Methemoglobin (0.0-3.0) % ABG O2 Capacity (16-24) mL/dl Hgb O2 Saturation (95.0-98.0) % FiO2 % Sodium (132-148) mmol/L Potassium (3.6-5.0) mmol/L Chloride (98-107) mmol/L Carbon Dioxide (21-33) mmol/L Anion Gap (10-20) BUN (7-21) mg/dL Creatinine (0.8-1.5) mg/dL Est GFR ( Amer) Est GFR (Non-Af Amer) POC Glucose (mg/dL) (65-110) mg/dL Random Glucose (70-110) mg/dL Calcium (8.4-10.5) mg/dL Phosphorus (2.5-4.5) mg/dL Magnesium (1.7-2.2) mg/dL Iron 50 (45-180) ug/dL TIBC 204 L (261-462) ug/dL % Saturation 24 (20-55) % Ferritin 312.0 ng/mL Total Bilirubin (0.2-1.3) mg/dL AST (17-59) U/L ALT (7-56) U/L Alkaline Phosphatase (38-126) U/L Total Protein (5.8-8.3) g/dL Albumin (3.0-4.8) g/dL Globulin gm/dL Albumin/Globulin Ratio (1.1-1.8) Vancomycin Trough 10.5 H (5.0-10.0) ug/mL 03/18/17 03/18/17 03/18/17 Range/Units 07:19 05:45 05:45 WBC 13.0 H (4.5-11.0) 10^3/ul RBC 3.02 L (3.5-6.1) 10^6/uL Hgb 8.7 L (14.0-18.0) g/dL Hct 25.9 L (42.0-52.0) % MCV 85.8 (80.0-105.0) fl MCH 28.8 (25.0-35.0) pg MCHC 33.6 (31.0-37.0) g/dl RDW 14.2 (11.5-14.5) % Plt Count 173 (120.0-450.0) 10^3/uL MPV 10.0 (7.0-11.0) fl Gran % 69.8 H (50.0-68.0) % Lymph % (Auto) 20.8 L (22.0-35.0) % Glades % (Auto) 8.2 H (1.0-6.0) % Eos % (Auto) 1.0 L (1.5-5.0) % Baso % (Auto) 0.2 (0.0-3.0) % Gran # 9.07 H (1.4-6.5) Lymph # 2.7 (1.2-3.4) Glades # 1.1 H (0.1-0.6) Eos # 0.1 (0.0-0.7) Baso # 0.02 (0.0-2.0) K/mm3 PT 12.2 H (9.9-11.8) Seconds INR 1.13 H (0.93-1.08) APTT 24.3 (23.7-30.8) Seconds pCO2 (35-45) mm/Hg pO2 (80-100) mm/Hg HCO3 (21-28) mmol/L ABG pH (7.35-7.45) ABG Total CO2 (22-28) mmol.L ABG O2 Saturation (95-98) % ABG O2 Content (15-23) ML/dl ABG Base Excess (-2.0-3.0) mmol/L ABG Hemoglobin (11.7-17.4) g/dL ABG Carboxyhemoglobin (0.5-1.5) % POC ABG HHb (Measured) (0-5) % ABG Methemoglobin (0.0-3.0) % ABG O2 Capacity (16-24) mL/dl Hgb O2 Saturation (95.0-98.0) % FiO2 % Sodium (132-148) mmol/L Potassium (3.6-5.0) mmol/L Chloride (98-107) mmol/L Carbon Dioxide (21-33) mmol/L Anion Gap (10-20) BUN (7-21) mg/dL Creatinine (0.8-1.5) mg/dL Est GFR ( Amer) Est GFR (Non-Af Amer) POC Glucose (mg/dL) 146 H (65-110) mg/dL Random Glucose (70-110) mg/dL Calcium (8.4-10.5) mg/dL Phosphorus (2.5-4.5) mg/dL Magnesium (1.7-2.2) mg/dL Iron (45-180) ug/dL TIBC (261-462) ug/dL % Saturation (20-55) % Ferritin ng/mL Total Bilirubin (0.2-1.3) mg/dL AST (17-59) U/L ALT (7-56) U/L Alkaline Phosphatase (38-126) U/L Total Protein (5.8-8.3) g/dL Albumin (3.0-4.8) g/dL Globulin gm/dL Albumin/Globulin Ratio (1.1-1.8) Vancomycin Trough (5.0-10.0) ug/mL 03/18/17 03/18/17 03/18/17 Range/Units 05:45 05:00 02:55 WBC (4.5-11.0) 10^3/ul RBC (3.5-6.1) 10^6/uL Hgb (14.0-18.0) g/dL Hct (42.0-52.0) % MCV (80.0-105.0) fl MCH (25.0-35.0) pg MCHC (31.0-37.0) g/dl RDW (11.5-14.5) % Plt Count (120.0-450.0) 10^3/uL MPV (7.0-11.0) fl Gran % (50.0-68.0) % Lymph % (Auto) (22.0-35.0) % Glades % (Auto) (1.0-6.0) % Eos % (Auto) (1.5-5.0) % Baso % (Auto) (0.0-3.0) % Gran # (1.4-6.5) Lymph # (1.2-3.4) Glades # (0.1-0.6) Eos # (0.0-0.7) Baso # (0.0-2.0) K/mm3 PT (9.9-11.8) Seconds INR (0.93-1.08) APTT (23.7-30.8) Seconds pCO2 27 L (35-45) mm/Hg pO2 133.0 H (80-100) mm/Hg HCO3 19.2 L (21-28) mmol/L ABG pH 7.46 H (7.35-7.45) ABG Total CO2 20.0 L (22-28) mmol.L ABG O2 Saturation 99.0 H (95-98) % ABG O2 Content 11.7 L (15-23) ML/dl ABG Base Excess -3.9 L (-2.0-3.0) mmol/L ABG Hemoglobin 8.4 L (11.7-17.4) g/dL ABG Carboxyhemoglobin 1.6 H (0.5-1.5) % POC ABG HHb (Measured) 1.0 (0-5) % ABG Methemoglobin 1.1 (0.0-3.0) % ABG O2 Capacity 11.8 L (16-24) mL/dl Hgb O2 Saturation 96.3 (95.0-98.0) % FiO2 40.0 % Sodium 152 H (132-148) mmol/L Potassium 3.5 L (3.6-5.0) mmol/L Chloride 118 H (98-107) mmol/L Carbon Dioxide 23 (21-33) mmol/L Anion Gap 15 (10-20) BUN 49 H (7-21) mg/dL Creatinine 1.5 (0.8-1.5) mg/dL Est GFR ( Amer) > 60 Est GFR (Non-Af Amer) 52 POC Glucose (mg/dL) 150 H (65-110) mg/dL Random Glucose 118 H (70-110) mg/dL Calcium 8.7 (8.4-10.5) mg/dL Phosphorus 4.4 (2.5-4.5) mg/dL Magnesium 2.2 (1.7-2.2) mg/dL Iron (45-180) ug/dL TIBC (261-462) ug/dL % Saturation (20-55) % Ferritin ng/mL Total Bilirubin 1.9 H (0.2-1.3) mg/dL AST 54 (17-59) U/L ALT 97 H (7-56) U/L Alkaline Phosphatase 103 (38-126) U/L Total Protein 6.6 (5.8-8.3) g/dL Albumin 3.3 (3.0-4.8) g/dL Globulin 3.3 gm/dL Albumin/Globulin Ratio 1.0 L (1.1-1.8) Vancomycin Trough (5.0-10.0) ug/mL 03/17/17 03/17/17 03/17/17 Range/Units 22:03 16:08 11:27 WBC (4.5-11.0) 10^3/ul RBC (3.5-6.1) 10^6/uL Hgb (14.0-18.0) g/dL Hct (42.0-52.0) % MCV (80.0-105.0) fl MCH (25.0-35.0) pg MCHC (31.0-37.0) g/dl RDW (11.5-14.5) % Plt Count (120.0-450.0) 10^3/uL MPV (7.0-11.0) fl Gran % (50.0-68.0) % Lymph % (Auto) (22.0-35.0) % [place]ades % (Auto) (1.0-6.0) % Eos % (Auto) (1.5-5.0) % Baso % (Auto) (0.0-3.0) % Gran # (1.4-6.5) Lymph # (1.2-3.4) [place]ades # (0.1-0.6) Eos # (0.0-0.7) Baso # (0.0-2.0) K/mm3 PT (9.9-11.8) Seconds INR (0.93-1.08) APTT (23.7-30.8) Seconds pCO2 (35-45) mm/Hg pO2 (80-100) mm/Hg HCO3 (21-28) mmol/L ABG pH (7.35-7.45) ABG Total CO2 (22-28) mmol.L ABG O2 Saturation (95-98) % ABG O2 Content (15-23) ML/dl ABG Base Excess (-2.0-3.0) mmol/L ABG Hemoglobin (11.7-17.4) g/dL ABG Carboxyhemoglobin (0.5-1.5) % POC ABG HHb (Measured) (0-5) % ABG Methemoglobin (0.0-3.0) % ABG O2 Capacity (16-24) mL/dl Hgb O2 Saturation (95.0-98.0) % FiO2 % Sodium (132-148) mmol/L Potassium (3.6-5.0) mmol/L Chloride (98-107) mmol/L Carbon Dioxide (21-33) mmol/L Anion Gap (10-20) BUN (7-21) mg/dL Creatinine (0.8-1.5) mg/dL Est GFR ( Amer) Est GFR (Non-Af Amer) POC Glucose (mg/dL) 136 H 131 H 111 H (65-110) mg/dL Random Glucose (70-110) mg/dL Calcium (8.4-10.5) mg/dL Phosphorus (2.5-4.5) mg/dL Magnesium (1.7-2.2) mg/dL Iron (45-180) ug/dL TIBC (261-462) ug/dL % Saturation (20-55) % Ferritin ng/mL Total Bilirubin (0.2-1.3) mg/dL AST (17-59) U/L ALT (7-56) U/L Alkaline Phosphatase (38-126) U/L Total Protein (5.8-8.3) g/dL Albumin (3.0-4.8) g/dL Globulin gm/dL Albumin/Globulin Ratio (1.1-1.8) Vancomycin Trough (5.0-10.0) ug/mL 03/17/17 Range/Units 08:01 WBC (4.5-11.0) 10^3/ul RBC (3.5-6.1) 10^6/uL Hgb (14.0-18.0) g/dL Hct (42.0-52.0) % MCV (80.0-105.0) fl MCH (25.0-35.0) pg MCHC (31.0-37.0) g/dl RDW (11.5-14.5) % Plt Count (120.0-450.0) 10^3/uL MPV (7.0-11.0) fl Gran % (50.0-68.0) % Lymph % (Auto) (22.0-35.0) % [place]ades % (Auto) (1.0-6.0) % Eos % (Auto) (1.5-5.0) % Baso % (Auto) (0.0-3.0) % Gran # (1.4-6.5) Lymph # (1.2-3.4) [place]ades # (0.1-0.6) Eos # (0.0-0.7) Baso # (0.0-2.0) K/mm3 PT (9.9-11.8) Seconds INR (0.93-1.08) APTT (23.7-30.8) Seconds pCO2 (35-45) mm/Hg pO2 (80-100) mm/Hg HCO3 (21-28) mmol/L ABG pH (7.35-7.45) ABG Total CO2 (22-28) mmol.L ABG O2 Saturation (95-98) % ABG O2 Content (15-23) ML/dl ABG Base Excess (-2.0-3.0) mmol/L ABG Hemoglobin (11.7-17.4) g/dL ABG Carboxyhemoglobin (0.5-1.5) % POC ABG HHb (Measured) (0-5) % ABG Methemoglobin (0.0-3.0) % ABG O2 Capacity (16-24) mL/dl Hgb O2 Saturation (95.0-98.0) % FiO2 % Sodium (132-148) mmol/L Potassium (3.6-5.0) mmol/L Chloride (98-107) mmol/L Carbon Dioxide (21-33) mmol/L Anion Gap (10-20) BUN (7-21) mg/dL Creatinine (0.8-1.5) mg/dL Est GFR ( Amer) Est GFR (Non-Af Amer) POC Glucose (mg/dL) 138 H (65-110) mg/dL Random Glucose (70-110) mg/dL Calcium (8.4-10.5) mg/dL Phosphorus (2.5-4.5) mg/dL Magnesium (1.7-2.2) mg/dL Iron (45-180) ug/dL TIBC (261-462) ug/dL % Saturation (20-55) % Ferritin ng/mL Total Bilirubin (0.2-1.3) mg/dL AST (17-59) U/L ALT (7-56) U/L Alkaline Phosphatase (38-126) U/L Total Protein (5.8-8.3) g/dL Albumin (3.0-4.8) g/dL Globulin gm/dL Albumin/Globulin Ratio (1.1-1.8) Vancomycin Trough (5.0-10.0) ug/mL Laboratory Results - last 24 hr 03/17/17 03/17/17 03/17/17 08:01 11:27 16:08 WBC RBC Hgb Hct MCV MCH MCHC RDW Plt Count MPV Gran % Lymph % (Auto) Glades % (Auto) Eos % (Auto) Baso % (Auto) Gran # Lymph # Glades # Eos # Baso # PT INR APTT pCO2 pO2 HCO3 ABG pH ABG Total CO2 ABG O2 Saturation ABG O2 Content ABG Base Excess ABG Hemoglobin ABG Carboxyhemoglobin POC ABG HHb (Measured) ABG Methemoglobin ABG O2 Capacity Hgb O2 Saturation FiO2 Sodium Potassium Chloride Carbon Dioxide Anion Gap BUN Creatinine Est GFR ( Amer) Est GFR (Non-Af Amer) POC Glucose (mg/dL) 138 H 111 H 131 H Random Glucose Calcium Phosphorus Magnesium Iron TIBC % Saturation Ferritin Total Bilirubin AST ALT Alkaline Phosphatase Total Protein Albumin Globulin Albumin/Globulin Ratio Vancomycin Trough 03/17/17 03/18/17 03/18/17 22:03 02:55 05:00 WBC RBC Hgb Hct MCV MCH MCHC RDW Plt Count MPV Gran % Lymph % (Auto) Glades % (Auto) Eos % (Auto) Baso % (Auto) Gran # Lymph # [place] # Eos # Baso # PT INR APTT pCO2 27 L pO2 133.0 H HCO3 19.2 L ABG pH 7.46 H ABG Total CO2 20.0 L ABG O2 Saturation 99.0 H ABG O2 Content 11.7 L ABG Base Excess -3.9 L ABG Hemoglobin 8.4 L ABG Carboxyhemoglobin 1.6 H POC ABG HHb (Measured) 1.0 ABG Methemoglobin 1.1 ABG O2 Capacity 11.8 L Hgb O2 Saturation 96.3 FiO2 40.0 Sodium Potassium Chloride Carbon Dioxide Anion Gap BUN Creatinine Est GFR ( Amer) Est GFR (Non-Af Amer) POC Glucose (mg/dL) 136 H 150 H Random Glucose Calcium Phosphorus Magnesium Iron TIBC % Saturation Ferritin Total Bilirubin AST ALT Alkaline Phosphatase Total Protein Albumin Globulin Albumin/Globulin Ratio Vancomycin Trough 03/18/17 03/18/17 03/18/17 05:45 05:45 05:45 WBC 13.0 H RBC 3.02 L Hgb 8.7 L Hct 25.9 L MCV 85.8 MCH 28.8 MCHC 33.6 RDW 14.2 Plt Count 173 MPV 10.0 Gran % 69.8 H Lymph % (Auto) 20.8 L [place]ades % (Auto) 8.2 H Eos % (Auto) 1.0 L Baso % (Auto) 0.2 Gran # 9.07 H Lymph # 2.7 Glades # 1.1 H Eos # 0.1 Baso # 0.02 PT 12.2 H INR 1.13 H APTT 24.3 pCO2 pO2 HCO3 ABG pH ABG Total CO2 ABG O2 Saturation ABG O2 Content ABG Base Excess ABG Hemoglobin ABG Carboxyhemoglobin POC ABG HHb (Measured) ABG Methemoglobin ABG O2 Capacity Hgb O2 Saturation FiO2 Sodium 152 H Potassium 3.5 L Chloride 118 H Carbon Dioxide 23 Anion Gap 15 BUN 49 H Creatinine 1.5 Est GFR ( Amer) > 60 Est GFR (Non-Af Amer) 52 POC Glucose (mg/dL) Random Glucose 118 H Calcium 8.7 Phosphorus 4.4 Magnesium 2.2 Iron TIBC % Saturation Ferritin Total Bilirubin 1.9 H AST 54 ALT 97 H Alkaline Phosphatase 103 Total Protein 6.6 Albumin 3.3 Globulin 3.3 Albumin/Globulin Ratio 1.0 L Vancomycin Trough 03/18/17 03/18/17 03/18/17 07:19 08:00 Unknown WBC RBC Hgb Hct MCV MCH MCHC RDW Plt Count MPV Gran % Lymph % (Auto) [place]ades % (Auto) Eos % (Auto) Baso % (Auto) Gran # Lymph # [place] # Eos # Baso # PT INR APTT pCO2 pO2 HCO3 ABG pH ABG Total CO2 ABG O2 Saturation ABG O2 Content ABG Base Excess ABG Hemoglobin ABG Carboxyhemoglobin POC ABG HHb (Measured) ABG Methemoglobin ABG O2 Capacity Hgb O2 Saturation FiO2 Sodium Potassium Chloride Carbon Dioxide Anion Gap BUN Creatinine Est GFR ( Amer) Est GFR (Non-Af Amer) POC Glucose (mg/dL) 146 H Random Glucose Calcium Phosphorus Magnesium Iron 50 TIBC 204 L % Saturation 24 Ferritin 312.0 Total Bilirubin AST ALT Alkaline Phosphatase Total Protein Albumin Globulin Albumin/Globulin Ratio Vancomycin Trough 03/18/17 Unknown WBC RBC Hgb Hct MCV MCH MCHC RDW Plt Count MPV Gran % Lymph % (Auto) [place] % (Auto) Eos % (Auto) Baso % (Auto) Gran # Lymph # Glades # Eos # Baso # PT INR APTT pCO2 pO2 HCO3 ABG pH ABG Total CO2 ABG O2 Saturation ABG O2 Content ABG Base Excess ABG Hemoglobin ABG Carboxyhemoglobin POC ABG HHb (Measured) ABG Methemoglobin ABG O2 Capacity Hgb O2 Saturation FiO2 Sodium Potassium Chloride Carbon Dioxide Anion Gap BUN Creatinine Est GFR ( Amer) Est GFR (Non-Af Amer) POC Glucose (mg/dL) Random Glucose Calcium Phosphorus Magnesium Iron TIBC % Saturation Ferritin Total Bilirubin AST ALT Alkaline Phosphatase Total Protein Albumin Globulin Albumin/Globulin Ratio Vancomycin Trough 10.5 H Fingerstick Blood Sugar Results: 150 Review of Systems - Review of Systems Systems not reviewed;Unavailable: Intubated Critical Care Progress Note - Nutrition Nutrition: Nutrition Category Date Time Status NPO Diet [DIET] Diets 03/14/17 Breakfast Ordered Assessment/Plan - Assessment and Plan (Free Text) Assessment: This is a 36 yo M with past medical history of substance abuse, depression, bipolar disorder, hypertension, anxiety disorder that presented with cardiac arrest in the field (downtime unknown) due to multi-drug overdose, with two further episodes of cardiac arrest on arrival, and likely witnessed seizure prior to initiation of increased sedation and paralytics. Remains off paralytics, still requiring high doses of sedatives due to tachypnea/fighting the ventilator. Pending Trach and G-tube by surgery, then correction care facility. Prognosis poor. Plan: Neuro: -currently sedated on Propofol and Precedex -Attempted to wean off Nimbex 2 days prior, failed due to tachypnea on vent in 40's-50's and was re-paralyzed; weaned yesterday again, tolerating currently -MRI brain notable for likely anoxic injury in thalamix area bilaterally -No longer actively cooling, maintain normothermia -Urine toxicology positive for opiates, barbiturates and benzos -Seizure precautions, ppx with Keppra 1000mg IV q12, Dilantin increased to TID as per Neuro -Neurology consulted - Dr. Rene, appreciate all recs; poor prognosis given burst suppression pattern on EEG with seizure when weaned from sedation -Poison control following Pulm: -Satting 95-100%, ABG this AM reviewed, pH 7.40, appropriate pCO2 and pO2 on 50 % FiO2 -CXR this AM reviewed, as compared to prior CXRs appears slightly worse at the R base, possibly fluid overloaded -Currently on PRVC 40%/8 peep/22 RR/470 TV, continue to monitor Cardio: -Off all pressor support x6 days, maintaining MAP > 65 consistently -Intermittent bradycardic episodes to 50's today, decreased precedex sedation, continue to monitor -Troponins increased from <0.01 to 0.13 on admission -most recent EKG 03/13, notable for sinus halina to 48 and prolonged QTc at 537 ( unsurprising in setting of multi-drug abuse) -Cardiology consulted - Dr. Anderson -Echo ordered, notable for EF 54%, normal size/wall thickness LV, flattened septum, mild Pulm HTN/TR, mild Rv dilation GI: -NPO -NGT placed -GI prophylaxis with protonix -LFTs improving -s/p x3 dosing of Acetadote as per Poison Control, no additional doses ordered Renal: -diuresed with Lasix 40mg IVP x1 -Hypernatremic at 152 today, started on D5W at 100cc/hr by nephro -Cr improving, 1.5 today -Will continue to monitor and treat electrolyte abnormalities as indicated; persistently low K requiring persistent repletion -Monitor I's and O's -Nephro following, appreciate all recs Endo: -Fingersticks q4h -Maintain euglycemia between 140-180's -Stress dose steroids with solu-cortef, decreased to 50mg q12h ID: -Blood and urine cultures drawn, negative -Most recent sputum (03/16) positive for light growth yeast, all other sputum cultures negative -Patient empirically covered with Cefepime, Levofloxacin, and Vanco; goal is 8 days of each, will d/c when completing 8th day -No fever reported overnight Heme: -Hgb 8.7, no overt signs of bleeding but decreasing over last 8 days, stool occult and iron panel ordered, will f/u -SCDs for DVT ppx -Coags stable, INR 1.13, was 1.11 Dispo: ICU, intubated/sedated, s/p seizure when weaning sedation, s/p EEG with burst-suppression pattern, poor prognosis, lipending Trach/PEG, prognosis very poor FEN: NPO, NS with KCl 40mEq at 100cc/hr Access: Peripheral IVs, R-femoral TLC Consults: Neuro, Cardio, Nephro, Poison Control, Surgery Ppx: Protonix covers for GI, SCDs for DVT Patient seen, examined, and reviewed with attending, Dr. Call <Markus Call - Last Filed: 03/18/17 14:18> CCU Objective - Vital Signs / Intake & Output Vital Signs (Last 4 hours): Vital Signs Temp Pulse BP Pulse Ox 03/18/17 13:50 56 L 97 03/18/17 13:45 59 L 139/67 100 03/18/17 13:40 53 L 100 03/18/17 13:30 55 L 163/77 H 100 03/18/17 13:20 52 L 100 03/18/17 13:15 51 L 142/64 100 03/18/17 13:10 51 L 100 03/18/17 13:00 51 L 145/81 100 03/18/17 12:50 56 L 99 03/18/17 12:45 51 L 115/91 H 100 03/18/17 12:40 52 L 100 03/18/17 12:30 48 L 149/80 100 03/18/17 12:20 50 L 100 03/18/17 12:15 51 L 144/80 100 03/18/17 12:10 50 L 100 03/18/17 12:00 99 F 53 L 145/100 H 100 03/18/17 11:50 45 L 98 03/18/17 11:45 46 L 142/73 98 03/18/17 11:40 45 L 98 03/18/17 11:30 46 L 142/67 98 03/18/17 11:20 47 L 97 03/18/17 11:15 48 L 140/69 97 03/18/17 11:10 46 L 97 03/18/17 11:00 48 L 141/66 98 03/18/17 10:50 51 L 99 03/18/17 10:45 52 L 140/70 99 03/18/17 10:40 55 L 98 03/18/17 10:31 63 144/80 100 03/18/17 10:30 87 95 03/18/17 10:20 63 96 03/18/17 10:15 65 149/57 L 97 Intake and Output (Last 8hrs): Intake & Output 03/17/17 03/18/17 03/18/17 22:59 06:59 14:59 Intake Total 400 2590 300 Output Total 2425 Balance 400 165 300 Weight 229 lb 9.6 oz 229 lb Intake: IV 400 2590 300 Right Femoral 2090 Output: Urine 2425 Urethral ([place]) 2425 - Medications Active Medications: Active Medications Generic Name Dose Route Start Last Admin Trade Name Freq PRN Reason Stop Dose Admin Albuterol/Ipratropium 3 ml 03/13/17 15:07 03/13/17 15:45 Duoneb 3 Mg/0.5 Mg (3 Ml) Ud IH 3 ml Q2H PRN Administration Shortness of Breath Albuterol/Ipratropium 3 ml 03/13/17 20:00 03/18/17 13:31 Duoneb 3 Mg/0.5 Mg (3 Ml) Ud IH 3 ml [id number] MAR[place]UY Administration Chlorhexidine Gluconate 15 ml 03/13/17 10:00 03/18/17 10:25 Peridex PO 15 ml BID [place]Y Administration Hydrocortisone Sodium Succinate 50 mg 03/18/17 22:00 Solu-Cortef IVP Q12 [place]UY NOREPINEPHRINE BIT/0.9 % NACL 4 mg in 250 mls @ 22.5 mls/hr 03/11/17 23:55 19:00 Levophed 4 Mg/ 250 Ml Ns Premixed IV 0 mcg/min .Q11H7M PRN 0 mls/hr TITRATE PER MD ORDER Titration Protocol 6 MCG/MIN Epinephrine HCl 1 mg/ Sodium 51 mls @ 3.06 mls/hr 03/12/17 00:35 03/12/17 19: 00 Chloride IV Infused .[id number] PRN Titration TITRATE PER MD ORDER Protocol 1 MCG/MIN Vancomycin HCl 1 gm in 250 mls @ 167 mls/hr 03/12/17 10:00 03/18/17 11:16 Vancomycin 1gm IVPB 03/18/17 23:59 Not Given DAILY [facility]UY Protocol Propofol 1,000 mg in 100 mls @ 3.674 mls/hr 03/12/17 07:41 03/18/17 10:34 Diprivan IV 40 mcg/kg/min .Q24H PRN 29.393 mls/hr TITRATE PER MD ORDER Titration Protocol 5 MCG/KG/MIN Cisatracurium Besylate 100 mg/ 260 mls @ 1.91 mls/hr 03/12/17 07:52 03/16/17 17:30 Sodium Chloride IV 0 mcg/kg/min .Q24H PRN 0 mls/hr TITRATE PER MD ORDER Titration Protocol 0.1 MCG/KG/MIN Levetiracetam 1,000 mg/ Sodium 110 mls @ 460 mls/hr 03/12/17 22:00 03/18/17 09:34 Chloride IV 460 mls/hr Q12 [place]Y Administration Levofloxacin/Dextrose 250 mg in 50 mls @ 50 mls/hr 03/14/17 11:45 03/18/17 09 :35 Levaquin 250mg IVPB 03/22/17 11:46 50 mls/hr DAILY [place]Y Administration Cefepime HCl 1 gm in 100 mls @ 100 mls/hr 03/15/17 14:00 03/18/17 02:04 Maxipime 1gm IVPB 03/23/17 14:01 100 mls/hr Q12H [place]Y Administration Protocol Fentanyl Citrate 1,000 mcg in 100 mls @ 15 mls/hr 03/16/17 05:41 03/17/17 06: 36 Fentanyl Citrate/Sodium Chloride 1 Mg/100 Ml IV 0 mcg/hr .Q6H40M PRN 0 mls/hr TITRATE PER MD ORDER Titration Protocol 150 MCG/HR Dexmedetomidine HCl 400 mcg in 100 mls @ 5.67 mls/hr 03/16/17 07:44 03/18/17 10:33 Precedex 4 Mcg/Ml (100 Ml) IV 1.2 mcg/kg/hr .[id number] PRN 34.019 mls/hr Sedation Titration Protocol 0.2 MCG/KG/HR Acetaminophen 1,000 mg in 100 mls @ 400 mls/hr 03/16/17 21:54 03/17/17 22:34 Ofirmev IVPB 03/18/17 21:55 400 mls/hr Q6H PRN Administration Temperature Potassium Chloride 40 meq/ 1,020 mls @ 100 mls/hr 03/17/17 21:40 03/18/17 10: 22 Sodium Chloride IV 100 mls/hr .[id number] [place]Y Administration Phenytoin 100 mg/ Sodium 52 mls @ 104 mls/hr 03/18/17 10:00 03/18/17 10:03 Chloride IVPB 104 mls/hr TID [facility]Y Administration Dextrose 1,000 mls @ 100 mls/hr 03/18/17 10:05 Dextrose 5% In Water 1000 Ml IV .Q10H [place]Y Pantoprazole Sodium 40 mg 03/12/17 10:00 03/18/17 09:48 Protonix Inj IVP 40 mg DAILY MAR[place]UY Administration - Patient Studies Lab Studies: Microbiology Studies 03/16/17 12:13 Gram Stain - Final Sputum Sputum Culture - Final Yeast Species 03/16/17 23:00 Urine Culture - Final Urine,[place] No Growth (<1,000 CFU/ML) 03/16/17 22:00 Blood Culture - Preliminary Blood-Venous NO GROWTH AFTER 24 HOURS 03/16/17 21:30 Blood Culture - Preliminary Blood-Venous NO GROWTH AFTER 24 HOURS Lab Studies 03/18/17 03/18/17 03/18/17 Range/Units Unknown Unknown 08:00 WBC (4.5-11.0) 10^3/ul RBC (3.5-6.1) 10^6/uL Hgb (14.0-18.0) g/dL Hct (42.0-52.0) % MCV (80.0-105.0) fl MCH (25.0-35.0) pg MCHC (31.0-37.0) g/dl RDW (11.5-14.5) % Plt Count (120.0-450.0) 10^3/uL MPV (7.0-11.0) fl Gran % (50.0-68.0) % Lymph % (Auto) (22.0-35.0) % Glades % (Auto) (1.0-6.0) % Eos % (Auto) (1.5-5.0) % Baso % (Auto) (0.0-3.0) % Gran # (1.4-6.5) Lymph # (1.2-3.4) Glades # (0.1-0.6) Eos # (0.0-0.7) Baso # (0.0-2.0) K/mm3 PT (9.9-11.8) Seconds INR (0.93-1.08) APTT (23.7-30.8) Seconds pCO2 (35-45) mm/Hg pO2 (80-100) mm/Hg HCO3 (21-28) mmol/L ABG pH (7.35-7.45) ABG Total CO2 (22-28) mmol.L ABG O2 Saturation (95-98) % ABG O2 Content (15-23) ML/dl ABG Base Excess (-2.0-3.0) mmol/L ABG Hemoglobin (11.7-17.4) g/dL ABG Carboxyhemoglobin (0.5-1.5) % POC ABG HHb (Measured) (0-5) % ABG Methemoglobin (0.0-3.0) % ABG O2 Capacity (16-24) mL/dl Hgb O2 Saturation (95.0-98.0) % FiO2 % Sodium (132-148) mmol/L Potassium (3.6-5.0) mmol/L Chloride (98-107) mmol/L Carbon Dioxide (21-33) mmol/L Anion Gap (10-20) BUN (7-21) mg/dL Creatinine (0.8-1.5) mg/dL Est GFR ( Amer) Est GFR (Non-Af Amer) POC Glucose (mg/dL) (65-110) mg/dL Random Glucose (70-110) mg/dL Calcium (8.4-10.5) mg/dL Phosphorus (2.5-4.5) mg/dL Magnesium (1.7-2.2) mg/dL Iron 50 (45-180) ug/dL TIBC 204 L (261-462) ug/dL % Saturation 24 (20-55) % Ferritin 312.0 ng/mL Total Bilirubin (0.2-1.3) mg/dL AST (17-59) U/L ALT (7-56) U/L Alkaline Phosphatase (38-126) U/L Total Protein (5.8-8.3) g/dL Albumin (3.0-4.8) g/dL Globulin gm/dL Albumin/Globulin Ratio (1.1-1.8) Vancomycin Trough 10.5 H (5.0-10.0) ug/mL 03/18/17 03/18/17 03/18/17 Range/Units 07:19 05:45 05:45 WBC 13.0 H (4.5-11.0) 10^3/ul RBC 3.02 L (3.5-6.1) 10^6/uL Hgb 8.7 L (14.0-18.0) g/dL Hct 25.9 L (42.0-52.0) % MCV 85.8 (80.0-105.0) fl MCH 28.8 (25.0-35.0) pg MCHC 33.6 (31.0-37.0) g/dl RDW 14.2 (11.5-14.5) % Plt Count 173 (120.0-450.0) 10^3/uL MPV 10.0 (7.0-11.0) fl Gran % 69.8 H (50.0-68.0) % Lymph % (Auto) 20.8 L (22.0-35.0) % Glades % (Auto) 8.2 H (1.0-6.0) % Eos % (Auto) 1.0 L (1.5-5.0) % Baso % (Auto) 0.2 (0.0-3.0) % Gran # 9.07 H (1.4-6.5) Lymph # 2.7 (1.2-3.4) Glades # 1.1 H (0.1-0.6) Eos # 0.1 (0.0-0.7) Baso # 0.02 (0.0-2.0) K/mm3 PT 12.2 H (9.9-11.8) Seconds INR 1.13 H (0.93-1.08) APTT 24.3 (23.7-30.8) Seconds pCO2 (35-45) mm/Hg pO2 (80-100) mm/Hg HCO3 (21-28) mmol/L ABG pH (7.35-7.45) ABG Total CO2 (22-28) mmol.L ABG O2 Saturation (95-98) % ABG O2 Content (15-23) ML/dl ABG Base Excess (-2.0-3.0) mmol/L ABG Hemoglobin (11.7-17.4) g/dL ABG Carboxyhemoglobin (0.5-1.5) % POC ABG HHb (Measured) (0-5) % ABG Methemoglobin (0.0-3.0) % ABG O2 Capacity (16-24) mL/dl Hgb O2 Saturation (95.0-98.0) % FiO2 % Sodium (132-148) mmol/L Potassium (3.6-5.0) mmol/L Chloride (98-107) mmol/L Carbon Dioxide (21-33) mmol/L Anion Gap (10-20) BUN (7-21) mg/dL Creatinine (0.8-1.5) mg/dL Est GFR ( Amer) Est GFR (Non-Af Amer) POC Glucose (mg/dL) 146 H (65-110) mg/dL Random Glucose (70-110) mg/dL Calcium (8.4-10.5) mg/dL Phosphorus (2.5-4.5) mg/dL Magnesium (1.7-2.2) mg/dL Iron (45-180) ug/dL TIBC (261-462) ug/dL % Saturation (20-55) % Ferritin ng/mL Total Bilirubin (0.2-1.3) mg/dL AST (17-59) U/L ALT (7-56) U/L Alkaline Phosphatase (38-126) U/L Total Protein (5.8-8.3) g/dL Albumin (3.0-4.8) g/dL Globulin gm/dL Albumin/Globulin Ratio (1.1-1.8) Vancomycin Trough (5.0-10.0) ug/mL 03/18/17 03/18/17 03/18/17 Range/Units 05:45 05:00 02:55 WBC (4.5-11.0) 10^3/ul RBC (3.5-6.1) 10^6/uL Hgb (14.0-18.0) g/dL Hct (42.0-52.0) % MCV (80.0-105.0) fl MCH (25.0-35.0) pg MCHC (31.0-37.0) g/dl RDW (11.5-14.5) % Plt Count (120.0-450.0) 10^3/uL MPV (7.0-11.0) fl Gran % (50.0-68.0) % Lymph % (Auto) (22.0-35.0) % Glades % (Auto) (1.0-6.0) % Eos % (Auto) (1.5-5.0) % Baso % (Auto) (0.0-3.0) % Gran # (1.4-6.5) Lymph # (1.2-3.4) Glades # (0.1-0.6) Eos # (0.0-0.7) Baso # (0.0-2.0) K/mm3 PT (9.9-11.8) Seconds INR (0.93-1.08) APTT (23.7-30.8) Seconds pCO2 27 L (35-45) mm/Hg pO2 133.0 H (80-100) mm/Hg HCO3 19.2 L (21-28) mmol/L ABG pH 7.46 H (7.35-7.45) ABG Total CO2 20.0 L (22-28) mmol.L ABG O2 Saturation 99.0 H (95-98) % ABG O2 Content 11.7 L (15-23) ML/dl ABG Base Excess -3.9 L (-2.0-3.0) mmol/L ABG Hemoglobin 8.4 L (11.7-17.4) g/dL ABG Carboxyhemoglobin 1.6 H (0.5-1.5) % POC ABG HHb (Measured) 1.0 (0-5) % ABG Methemoglobin 1.1 (0.0-3.0) % ABG O2 Capacity 11.8 L (16-24) mL/dl Hgb O2 Saturation 96.3 (95.0-98.0) % FiO2 40.0 % Sodium 152 H (132-148) mmol/L Potassium 3.5 L (3.6-5.0) mmol/L Chloride 118 H (98-107) mmol/L Carbon Dioxide 23 (21-33) mmol/L Anion Gap 15 (10-20) BUN 49 H (7-21) mg/dL Creatinine 1.5 (0.8-1.5) mg/dL Est GFR ( Amer) > 60 Est GFR (Non-Af Amer) 52 POC Glucose (mg/dL) 150 H (65-110) mg/dL Random Glucose 118 H (70-110) mg/dL Calcium 8.7 (8.4-10.5) mg/dL Phosphorus 4.4 (2.5-4.5) mg/dL Magnesium 2.2 (1.7-2.2) mg/dL Iron (45-180) ug/dL TIBC (261-462) ug/dL % Saturation (20-55) % Ferritin ng/mL Total Bilirubin 1.9 H (0.2-1.3) mg/dL AST 54 (17-59) U/L ALT 97 H (7-56) U/L Alkaline Phosphatase 103 (38-126) U/L Total Protein 6.6 (5.8-8.3) g/dL Albumin 3.3 (3.0-4.8) g/dL Globulin 3.3 gm/dL Albumin/Globulin Ratio 1.0 L (1.1-1.8) Vancomycin Trough (5.0-10.0) ug/mL 03/17/17 03/17/17 03/17/17 Range/Units 22:03 16:08 11:27 WBC (4.5-11.0) 10^3/ul RBC (3.5-6.1) 10^6/uL Hgb (14.0-18.0) g/dL Hct (42.0-52.0) % MCV (80.0-105.0) fl MCH (25.0-35.0) pg MCHC (31.0-37.0) g/dl RDW (11.5-14.5) % Plt Count (120.0-450.0) 10^3/uL MPV (7.0-11.0) fl Gran % (50.0-68.0) % Lymph % (Auto) (22.0-35.0) % Glades % (Auto) (1.0-6.0) % Eos % (Auto) (1.5-5.0) % Baso % (Auto) (0.0-3.0) % Gran # (1.4-6.5) Lymph # (1.2-3.4) Glades # (0.1-0.6) Eos # (0.0-0.7) Baso # (0.0-2.0) K/mm3 PT (9.9-11.8) Seconds INR (0.93-1.08) APTT (23.7-30.8) Seconds pCO2 (35-45) mm/Hg pO2 (80-100) mm/Hg HCO3 (21-28) mmol/L ABG pH (7.35-7.45) ABG Total CO2 (22-28) mmol.L ABG O2 Saturation (95-98) % ABG O2 Content (15-23) ML/dl ABG Base Excess (-2.0-3.0) mmol/L ABG Hemoglobin (11.7-17.4) g/dL ABG Carboxyhemoglobin (0.5-1.5) % POC ABG HHb (Measured) (0-5) % ABG Methemoglobin (0.0-3.0) % ABG O2 Capacity (16-24) mL/dl Hgb O2 Saturation (95.0-98.0) % FiO2 % Sodium (132-148) mmol/L Potassium (3.6-5.0) mmol/L Chloride (98-107) mmol/L Carbon Dioxide (21-33) mmol/L Anion Gap (10-20) BUN (7-21) mg/dL Creatinine (0.8-1.5) mg/dL Est GFR ( Amer) Est GFR (Non-Af Amer) POC Glucose (mg/dL) 136 H 131 H 111 H (65-110) mg/dL Random Glucose (70-110) mg/dL Calcium (8.4-10.5) mg/dL Phosphorus (2.5-4.5) mg/dL Magnesium (1.7-2.2) mg/dL Iron (45-180) ug/dL TIBC (261-462) ug/dL % Saturation (20-55) % Ferritin ng/mL Total Bilirubin (0.2-1.3) mg/dL AST (17-59) U/L ALT (7-56) U/L Alkaline Phosphatase (38-126) U/L Total Protein (5.8-8.3) g/dL Albumin (3.0-4.8) g/dL Globulin gm/dL Albumin/Globulin Ratio (1.1-1.8) Vancomycin Trough (5.0-10.0) ug/mL 03/17/17 Range/Units 08:01 WBC (4.5-11.0) 10^3/ul RBC (3.5-6.1) 10^6/uL Hgb (14.0-18.0) g/dL Hct (42.0-52.0) % MCV (80.0-105.0) fl MCH (25.0-35.0) pg MCHC (31.0-37.0) g/dl RDW (11.5-14.5) % Plt Count (120.0-450.0) 10^3/uL MPV (7.0-11.0) fl Gran % (50.0-68.0) % Lymph % (Auto) (22.0-35.0) % Glades % (Auto) (1.0-6.0) % Eos % (Auto) (1.5-5.0) % Baso % (Auto) (0.0-3.0) % Gran # (1.4-6.5) Lymph # (1.2-3.4) Glades # (0.1-0.6) Eos # (0.0-0.7) Baso # (0.0-2.0) K/mm3 PT (9.9-11.8) Seconds INR (0.93-1.08) APTT (23.7-30.8) Seconds pCO2 (35-45) mm/Hg pO2 (80-100) mm/Hg HCO3 (21-28) mmol/L ABG pH (7.35-7.45) ABG Total CO2 (22-28) mmol.L ABG O2 Saturation (95-98) % ABG O2 Content (15-23) ML/dl ABG Base Excess (-2.0-3.0) mmol/L ABG Hemoglobin (11.7-17.4) g/dL ABG Carboxyhemoglobin (0.5-1.5) % POC ABG HHb (Measured) (0-5) % ABG Methemoglobin (0.0-3.0) % ABG O2 Capacity (16-24) mL/dl Hgb O2 Saturation (95.0-98.0) % FiO2 % Sodium (132-148) mmol/L Potassium (3.6-5.0) mmol/L Chloride (98-107) mmol/L Carbon Dioxide (21-33) mmol/L Anion Gap (10-20) BUN (7-21) mg/dL Creatinine (0.8-1.5) mg/dL Est GFR ( Amer) Est GFR (Non-Af Amer) POC Glucose (mg/dL) 138 H (65-110) mg/dL Random Glucose (70-110) mg/dL Calcium (8.4-10.5) mg/dL Phosphorus (2.5-4.5) mg/dL Magnesium (1.7-2.2) mg/dL Iron (45-180) ug/dL TIBC (261-462) ug/dL % Saturation (20-55) % Ferritin ng/mL Total Bilirubin (0.2-1.3) mg/dL AST (17-59) U/L ALT (7-56) U/L Alkaline Phosphatase (38-126) U/L Total Protein (5.8-8.3) g/dL Albumin (3.0-4.8) g/dL Globulin gm/dL Albumin/Globulin Ratio (1.1-1.8) Vancomycin Trough (5.0-10.0) ug/mL Laboratory Results - last 24 hr 03/17/17 03/17/17 03/17/17 08:01 11:27 16:08 WBC RBC Hgb Hct MCV MCH MCHC RDW Plt Count MPV Gran % Lymph % (Auto) Glades % (Auto) Eos % (Auto) Baso % (Auto) Gran # Lymph # Glades # Eos # Baso # PT INR APTT pCO2 pO2 HCO3 ABG pH ABG Total CO2 ABG O2 Saturation ABG O2 Content ABG Base Excess ABG Hemoglobin ABG Carboxyhemoglobin POC ABG HHb (Measured) ABG Methemoglobin ABG O2 Capacity Hgb O2 Saturation FiO2 Sodium Potassium Chloride Carbon Dioxide Anion Gap BUN Creatinine Est GFR ( Amer) Est GFR (Non-Af Amer) POC Glucose (mg/dL) 138 H 111 H 131 H Random Glucose Calcium Phosphorus Magnesium Iron TIBC % Saturation Ferritin Total Bilirubin AST ALT Alkaline Phosphatase Total Protein Albumin Globulin Albumin/Globulin Ratio Vancomycin Trough 03/17/17 03/18/17 03/18/17 22:03 02:55 05:00 WBC RBC Hgb Hct MCV MCH MCHC RDW Plt Count MPV Gran % Lymph % (Auto) Glades % (Auto) Eos % (Auto) Baso % (Auto) Gran # Lymph # [place] # Eos # Baso # PT INR APTT pCO2 27 L pO2 133.0 H HCO3 19.2 L ABG pH 7.46 H ABG Total CO2 20.0 L ABG O2 Saturation 99.0 H ABG O2 Content 11.7 L ABG Base Excess -3.9 L ABG Hemoglobin 8.4 L ABG Carboxyhemoglobin 1.6 H POC ABG HHb (Measured) 1.0 ABG Methemoglobin 1.1 ABG O2 Capacity 11.8 L Hgb O2 Saturation 96.3 FiO2 40.0 Sodium Potassium Chloride Carbon Dioxide Anion Gap BUN Creatinine Est GFR ( Amer) Est GFR (Non-Af Amer) POC Glucose (mg/dL) 136 H 150 H Random Glucose Calcium Phosphorus Magnesium Iron TIBC % Saturation Ferritin Total Bilirubin AST ALT Alkaline Phosphatase Total Protein Albumin Globulin Albumin/Globulin Ratio Vancomycin Trough 03/18/17 03/18/17 03/18/17 05:45 05:45 05:45 WBC 13.0 H RBC 3.02 L Hgb 8.7 L Hct 25.9 L MCV 85.8 MCH 28.8 MCHC 33.6 RDW 14.2 Plt Count 173 MPV 10.0 Gran % 69.8 H Lymph % (Auto) 20.8 L Glades % (Auto) 8.2 H Eos % (Auto) 1.0 L Baso % (Auto) 0.2 Gran # 9.07 H Lymph # 2.7 Glades # 1.1 H Eos # 0.1 Baso # 0.02 PT 12.2 H INR 1.13 H APTT 24.3 pCO2 pO2 HCO3 ABG pH ABG Total CO2 ABG O2 Saturation ABG O2 Content ABG Base Excess ABG Hemoglobin ABG Carboxyhemoglobin POC ABG HHb (Measured) ABG Methemoglobin ABG O2 Capacity Hgb O2 Saturation FiO2 Sodium 152 H Potassium 3.5 L Chloride 118 H Carbon Dioxide 23 Anion Gap 15 BUN 49 H Creatinine 1.5 Est GFR ( Amer) > 60 Est GFR (Non-Af Amer) 52 POC Glucose (mg/dL) Random Glucose 118 H Calcium 8.7 Phosphorus 4.4 Magnesium 2.2 Iron TIBC % Saturation Ferritin Total Bilirubin 1.9 H AST 54 ALT 97 H Alkaline Phosphatase 103 Total Protein 6.6 Albumin 3.3 Globulin 3.3 Albumin/Globulin Ratio 1.0 L Vancomycin Trough 03/18/17 03/18/17 03/18/17 07:19 08:00 Unknown WBC RBC Hgb Hct MCV MCH MCHC RDW Plt Count MPV Gran % Lymph % (Auto) Glades % (Auto) Eos % (Auto) Baso % (Auto) Gran # Lymph # Glades # Eos # Baso # PT INR APTT pCO2 pO2 HCO3 ABG pH ABG Total CO2 ABG O2 Saturation ABG O2 Content ABG Base Excess ABG Hemoglobin ABG Carboxyhemoglobin POC ABG HHb (Measured) ABG Methemoglobin ABG O2 Capacity Hgb O2 Saturation FiO2 Sodium Potassium Chloride Carbon Dioxide Anion Gap BUN Creatinine Est GFR ( Amer) Est GFR (Non-Af Amer) POC Glucose (mg/dL) 146 H Random Glucose Calcium Phosphorus Magnesium Iron 50 TIBC 204 L % Saturation 24 Ferritin 312.0 Total Bilirubin AST ALT Alkaline Phosphatase Total Protein Albumin Globulin Albumin/Globulin Ratio Vancomycin Trough 03/18/17 Unknown WBC RBC Hgb Hct MCV MCH MCHC RDW Plt Count MPV Gran % Lymph % (Auto) Glades % (Auto) Eos % (Auto) Baso % (Auto) Gran # Lymph # Glades # Eos # Baso # PT INR APTT pCO2 pO2 HCO3 ABG pH ABG Total CO2 ABG O2 Saturation ABG O2 Content ABG Base Excess ABG Hemoglobin ABG Carboxyhemoglobin POC ABG HHb (Measured) ABG Methemoglobin ABG O2 Capacity Hgb O2 Saturation FiO2 Sodium Potassium Chloride Carbon Dioxide Anion Gap BUN Creatinine Est GFR ( Amer) Est GFR (Non-Af Amer) POC Glucose (mg/dL) Random Glucose Calcium Phosphorus Magnesium Iron TIBC % Saturation Ferritin Total Bilirubin AST ALT Alkaline Phosphatase Total Protein Albumin Globulin Albumin/Globulin Ratio Vancomycin Trough 10.5 H Critical Care Progress Note - Nutrition Nutrition: Nutrition Category Date Time Status NPO Diet [DIET] Diets 03/14/17 Breakfast Ordered Assessment/Plan - Assessment and Plan (Free Text) Plan: Patient seen and examined, with resident, agree with note, with following additions/exceptions: 36yo male with drug overdose, with multiple substances (+BZDs, barbiturate, Opiates), s/p ROSC after cardiac arrest x 3, unknown initial downtime at home. Cardiac Arrest x 3, s/p ROSC Polysubstance Abuse Drug Over dose s/p NAC ARDS/Hypoxemic Resp failure, RESOLVED PNA/Pneumonitis Seizures - currently afebrile, HD stable, comfortable on sedation off paralytics - On broad spectrum abx - unknown down time, evidence of anoxic brain injury on MRI - EEG demonstrated diffuse slowing c/w cerebral dysfunction - overall prognosis remains extremely poor Recommend: - cont with full ventilatory support, patient failed CPAP trial today - would hold off further IV diuresis - cont with Broad spectrum abx for total of 8 days - Decrease steroids to SoluCortef 50mg Q12hr IV - follow up neurology - Sophie Funk - monitor HH - check FOBT - replete K, follow up repeat BMP - DVT ppx - GI ppx - patient awaiting PEG, Trach, placement in Ltach
--- NOTE | 2017-03-18 13:53 | CP.PCM.PN ---
Subjective - Date & Time of Evaluation Date of Evaluation: 03/18/17 Time of Evaluation: 13:50 - Subjective Subjective: Surgery Pt s&e. On vent. 40% fIo2, PEEP 8. Doesn't response to verbal commands. Objective - Vital Signs/Intake and Output Vital Signs (last 24 hours): Temp Pulse Resp BP Pulse Ox 99 F 53 L 31 H 163/77 H 100 03/18/17 12:00 03/18/17 13:40 03/18/17 00:01 03/18/17 13:30 03/18/17 13:40 Intake and Output: 03/18/17 03/18/17 06:59 18:59 Intake Total 2790 300 Output Total 2425 Balance 365 300 - Medications Medications: Current Medications Albuterol/Ipratropium (Duoneb 3 Mg/0.5 Mg (3 Ml) Ud) 3 ml IH Q2H PRN PRN Reason: Shortness of Breath Last Admin: 03/13/17 15:45 Dose: 3 ml Albuterol/Ipratropium (Duoneb 3 Mg/0.5 Mg (3 Ml) Ud) 3 ml IH [id number] [place]UY Last Admin: 03/18/17 13:31 Dose: 3 ml Chlorhexidine Gluconate (Peridex) 15 ml PO BID [place]Y Last Admin: 03/18/17 10:25 Dose: 15 ml Hydrocortisone Sodium Succinate (Solu-Cortef) 50 mg IVP Q12 [place] NOREPINEPHRINE BIT/0.9 % NACL (Levophed 4 Mg/ 250 Ml Ns Premixed) 4 mg in 250 mls @ 22.5 mls/hr IV .Q11H7M PRN; Protocol; 6 MCG/MIN PRN Reason: TITRATE PER MD ORDER Last Titration: 03/12/17 19:00 Dose: 0 mcg/min, 0 mls/hr Epinephrine HCl 1 mg/ Sodium (Chloride) 51 mls @ 3.06 mls/hr IV .[id number] PRN; Protocol; 1 MCG/MIN PRN Reason: TITRATE PER MD ORDER Last Titration: 03/12/17 19:00 Dose: Infused Vancomycin HCl (Vancomycin 1gm) 1 gm in 250 mls @ 167 mls/hr IVPB DAILY [facility] PRN Reason: Protocol Stop: 03/18/17 23:59 Last Admin: 03/18/17 11:16 Dose: Not Given Propofol (Diprivan) 1,000 mg in 100 mls @ 3.674 mls/hr IV .Q24H PRN; Protocol; 5 MCG/KG/MIN PRN Reason: TITRATE PER MD ORDER Last Titration: 03/18/17 10:34 Dose: 40 mcg/kg/min, 29.393 mls/hr Cisatracurium Besylate 100 mg/ (Sodium Chloride) 260 mls @ 1.91 mls/hr IV .Q24H PRN; Protocol; 0.1 MCG/KG/MIN PRN Reason: TITRATE PER MD ORDER Last Titration: 03/16/17 17:30 Dose: 0 mcg/kg/min, 0 mls/hr Levetiracetam 1,000 mg/ Sodium (Chloride) 110 mls @ 460 mls/hr IV Q12 [facility] Last Admin: 03/18/17 09:34 Dose: 460 mls/hr Levofloxacin/Dextrose (Levaquin 250mg) 250 mg in 50 mls @ 50 mls/hr IVPB DAILY [facility] Stop: 03/22/17 11:46 Last Admin: 03/18/17 09:35 Dose: 50 mls/hr Cefepime HCl (Maxipime 1gm) 1 gm in 100 mls @ 100 mls/hr IVPB Q12H [facility] PRN Reason: Protocol Stop: 03/23/17 14:01 Last Admin: 03/18/17 02:04 Dose: 100 mls/hr Fentanyl Citrate (Fentanyl Citrate/Sodium Chloride 1 Mg/100 Ml) 1,000 mcg in 100 mls @ 15 mls/hr IV .Q6H40M PRN; Protocol; 150 MCG/HR PRN Reason: TITRATE PER MD ORDER Last Titration: 03/17/17 06:36 Dose: 0 mcg/hr, 0 mls/hr Dexmedetomidine HCl (Precedex 4 Mcg/Ml (100 Ml)) 400 mcg in 100 mls @ 5.67 mls/ hr IV .[id number] PRN; Protocol; 0.2 MCG/KG/HR PRN Reason: Sedation Last Titration: 03/18/17 10:33 Dose: 1.2 mcg/kg/hr, 34.019 mls/hr Acetaminophen (Ofirmev) 1,000 mg in 100 mls @ 400 mls/hr IVPB Q6H PRN PRN Reason: Temperature Stop: 03/18/17 21:55 Last Admin: 03/17/17 22:34 Dose: 400 mls/hr Potassium Chloride 40 meq/ (Sodium Chloride) 1,020 mls @ 100 mls/hr IV .[id number] [facility] Last Admin: 03/18/17 10:22 Dose: 100 mls/hr Phenytoin 100 mg/ Sodium (Chloride) 52 mls @ 104 mls/hr IVPB TID [facility] Last Admin: 03/18/17 10:03 Dose: 104 mls/hr Dextrose (Dextrose 5% In Water 1000 Ml) 1,000 mls @ 100 mls/hr IV .Q10H [place] Pantoprazole Sodium (Protonix Inj) 40 mg IVP DAILY [facility] Last Admin: 03/18/17 09:48 Dose: 40 mg - Labs Labs: 03/18/17 05:45 03/18/17 05:45 PT 12.2 Seconds (9.9-11.8) H 03/18/17 05:45 INR 1.13 (0.93-1.08) H 03/18/17 05:45 APTT 24.3 Seconds (23.7-30.8) 03/18/17 05:45 - Constitutional Appears: Unkempt - ENT Exam Additional comments: Intubated - Neck Exam Neck Exam: Normal Inspection - Respiratory Exam Respiratory Exam: NORMAL BREATHING PATTERN - Cardiovascular Exam Cardiovascular Exam: REGULAR RHYTHM, +S1, +S2. absent: Murmur - GI/Abdominal Exam GI & Abdominal Exam: Soft, Normal Bowel Sounds. absent: Distended, Tenderness - Extremities Exam Extremities Exam: Normal Inspection - Back Exam Back Exam: NORMAL INSPECTION - Neurological Exam Neurological Exam: Altered. absent: Alert, Awake, Oriented x3 - Skin Skin Exam: Dry, Intact Assessment and Plan - Assessment and Plan (Free Text) Assessment: 36yo M s/p Cardiac arrest likely secondary to substance abuse; in persistent vegetative state secondary to anoxic brain injury. General surgery consulted for Tracheostomy/Gastrostomy placement. -ICU management -Trach and gastrostomy postponed because of electrolyte abnormality -MOnitor labs - Consent for procedures obtained and on chart - Continue medical maximization as per primary and ICU teams ANTHONY Reyes
[2017-03-18 16:04] LABS: BLOOD UREA NITROGEN 46 mg/dL (7-21); CARBON DIOXIDE 23 mmol/L (21-33); CHLORIDE 114 mmol/L (98-107); GFR AFRICAN-AMERICAN > 60; GLUCOSE,RANDOM 121 mg/dL (70-110); POTASSIUM 3.5 mmol/L (3.6-5.0); SODIUM 150 mmol/L (132-148)
--- NOTE | 2017-03-18 19:13 | CP.PCM.PN ---
Objective - Vital Signs/Intake and Output Vital Signs (last 24 hours): Temp Pulse Resp BP Pulse Ox 99 F 51 L 31 H 141/67 100 03/18/17 18:00 03/18/17 18:15 03/18/17 00:01 03/18/17 18:15 03/18/17 18:15 Intake and Output: 03/18/17 03/19/17 18:59 06:59 Intake Total 350 Output Total 2500 Balance 350 -2500 - Medications Medications: Current Medications Albuterol/Ipratropium (Duoneb 3 Mg/0.5 Mg (3 Ml) Ud) 3 ml IH Q2H PRN PRN Reason: Shortness of Breath Last Admin: 03/13/17 15:45 Dose: 3 ml Albuterol/Ipratropium (Duoneb 3 Mg/0.5 Mg (3 Ml) Ud) 3 ml IH [id number] [place] Last Admin: 03/18/17 13:31 Dose: 3 ml Chlorhexidine Gluconate (Peridex) 15 ml PO BID [place] Last Admin: 03/18/17 17:46 Dose: 15 ml Hydrocortisone Sodium Succinate (Solu-Cortef) 50 mg IVP Q12 [place] NOREPINEPHRINE BIT/0.9 % NACL (Levophed 4 Mg/ 250 Ml Ns Premixed) 4 mg in 250 mls @ 22.5 mls/hr IV .Q11H7M PRN; Protocol; 6 MCG/MIN PRN Reason: TITRATE PER MD ORDER Last Titration: 03/12/17 19:00 Dose: 0 mcg/min, 0 mls/hr Epinephrine HCl 1 mg/ Sodium (Chloride) 51 mls @ 3.06 mls/hr IV .[id number] PRN; Protocol; 1 MCG/MIN PRN Reason: TITRATE PER MD ORDER Last Titration: 03/12/17 19:00 Dose: Infused Vancomycin HCl (Vancomycin 1gm) 1 gm in 250 mls @ 167 mls/hr IVPB DAILY [place] PRN Reason: Protocol Stop: 03/18/17 23:59 Last Admin: 03/18/17 11:16 Dose: Not Given Propofol (Diprivan) 1,000 mg in 100 mls @ 3.674 mls/hr IV .Q24H PRN; Protocol; 5 MCG/KG/MIN PRN Reason: TITRATE PER MD ORDER Last Admin: 03/18/17 14:45 Dose: 40 mcg/kg/min, 29.393 mls/hr Cisatracurium Besylate 100 mg/ (Sodium Chloride) 260 mls @ 1.91 mls/hr IV .Q24H PRN; Protocol; 0.1 MCG/KG/MIN PRN Reason: TITRATE PER MD ORDER Last Titration: 03/16/17 17:30 Dose: 0 mcg/kg/min, 0 mls/hr Levetiracetam 1,000 mg/ Sodium (Chloride) 110 mls @ 460 mls/hr IV Q12 [facility] Last Admin: 03/18/17 09:34 Dose: 460 mls/hr Levofloxacin/Dextrose (Levaquin 250mg) 250 mg in 50 mls @ 50 mls/hr IVPB DAILY [place] Stop: 03/22/17 11:46 Last Admin: 03/18/17 09:35 Dose: 50 mls/hr Cefepime HCl (Maxipime 1gm) 1 gm in 100 mls @ 100 mls/hr IVPB Q12H [place] PRN Reason: Protocol Stop: 03/23/17 14:01 Last Admin: 03/18/17 14:28 Dose: 100 mls/hr Fentanyl Citrate (Fentanyl Citrate/Sodium Chloride 1 Mg/100 Ml) 1,000 mcg in 100 mls @ 15 mls/hr IV .Q6H40M PRN; Protocol; 150 MCG/HR PRN Reason: TITRATE PER MD ORDER Last Titration: 03/17/17 06:36 Dose: 0 mcg/hr, 0 mls/hr Dexmedetomidine HCl (Precedex 4 Mcg/Ml (100 Ml)) 400 mcg in 100 mls @ 5.67 mls/ hr IV .[id number] PRN; Protocol; 0.2 MCG/KG/HR PRN Reason: Sedation Last Titration: 03/18/17 17:47 Dose: 1 mcg/kg/hr, 28.35 mls/hr Acetaminophen (Ofirmev) 1,000 mg in 100 mls @ 400 mls/hr IVPB Q6H PRN PRN Reason: Temperature Stop: 03/18/17 21:55 Last Admin: 03/17/17 22:34 Dose: 400 mls/hr Potassium Chloride 40 meq/ (Sodium Chloride) 1,020 mls @ 100 mls/hr IV .[id number] [facility] Last Admin: 03/18/17 10:22 Dose: 100 mls/hr Phenytoin 100 mg/ Sodium (Chloride) 52 mls @ 104 mls/hr IVPB TID [facility] Last Admin: 03/18/17 18:48 Dose: 104 mls/hr Dextrose (Dextrose 5% In Water 1000 Ml) 1,000 mls @ 150 mls/hr IV .Q6H40M [facility] Last Admin: 03/18/17 16:32 Dose: 150 mls/hr Pantoprazole Sodium (Protonix Inj) 40 mg IVP DAILY [facility] Last Admin: 03/18/17 09:48 Dose: 40 mg - Labs Labs: 03/18/17 05:45 03/18/17 15:45 PT 12.2 Seconds (9.9-11.8) H 03/18/17 05:45 INR 1.13 (0.93-1.08) H 03/18/17 05:45 APTT 24.3 Seconds (23.7-30.8) 03/18/17 05:45 Assessment and Plan (1) Acute renal failure Status: Acute (2) ARDS (adult respiratory distress syndrome) Status: Acute (3) Polyuria Status: Acute (4) Electrolyte imbalance Status: Acute
[2017-03-19] MEDS: Propofol 10 mg/ml 1,000 MG/100 ML VIAL IV PRN ×6 (00:45→21:44)
[2017-03-19] MEDS: Albuterol-Ipratrop 3 mg / 0.5 (3 ml) UD IH SCH ×4 (01:25→19:40)
[2017-03-19] MEDS: Cefepime 1gm in NS 100ml 1 GM/100 ML BAG IVPB SCH (02:27)
[2017-03-19] MEDS: Dexmedetomidine HCl 4mcg/ml 400 MCG/100 ML BOTTLE IV PRN ×3 (03:22→18:10)
[2017-03-19 04:45] LABS: ARTERIAL BLOOD GAS HCO3 21.3 mmol/L (21-28); ARTERIAL BLOOD GAS O2 CAPACITY 18.2 mL/dl (16-24); ARTERIAL BLOOD GAS PH 7.49 (7.35-7.45); ARTERIAL BLOOD HGB O2 SAT 96.5 % (95.0-98.0); CARBOXYHEMOGLOBIN 1.2 % (0.5-1.5); HHB 1.2 % (0-5); METHEMOGLOBIN 1.2 % (0.0-3.0)
--- NOTE | 2017-03-19 06:07 | CP.CCUPN ---
<Jerman Kilgore - Last Filed: 03/19/17 12:14> CCU Subjective - Physician Review Subjective (Free Text): 03/19/17 06:03 Patient seen and examined at bedside in the ICU. No acute events reported overnight. Patient remains intubated, sedated, and off paralytics. Unable to fully wean from Precedex yesterday as patient becomes tachypnic to 30's-40's and fights the vent. Pending a Trach and Gastrostomy tube placement, as per family's wishes, so that he might be placed in a long-term care setting. No signs of active seizure during exam. CCU Objective - Vital Signs / Intake & Output Vital Signs (Last 4 hours): Vital Signs Temp Pulse Resp BP Pulse Ox 03/19/17 05:50 64 100 03/19/17 05:40 67 100 03/19/17 05:30 68 100 03/19/17 05:20 66 100 03/19/17 05:10 87 100 03/19/17 05:00 90 144/86 100 03/19/17 04:59 91 H 03/19/17 04:58 91 H 03/19/17 04:50 90 L 03/19/17 04:40 81 29 H 70 L 03/19/17 04:30 55 L 86 L 03/19/17 04:20 50 L 100 03/19/17 04:10 49 L 100 03/19/17 04:00 99.5 F 50 L 162/79 H 100 03/19/17 03:50 51 L 100 03/19/17 03:40 55 L 100 03/19/17 03:30 52 L 100 03/19/17 03:20 58 L 100 03/19/17 03:10 53 L 100 03/19/17 03:00 53 L 157/93 H 100 03/19/17 02:50 55 L 100 03/19/17 02:40 54 L 100 03/19/17 02:30 52 L 100 03/19/17 02:20 52 L 100 03/19/17 02:10 53 L 100 Intake and Output (Last 8hrs): Intake & Output 03/18/17 03/18/17 03/19/17 14:59 22:59 06:59 Intake Total 350 250 450 Output Total 2500 Balance 350 -2250 450 Weight 103.873 kg Intake: IV 350 250 450 Output: Urine 2500 Urethral ([place]) 2500 - Physical Exam Head: Positive for: Atraumatic, Normocephalic. Negative for: Ecchymosis, Abrasion, Laceration Pupils: Positive for: Other (pinpoint pupils, not reactive to direct light challenge) Extroacular Muscles: Positive for: Other (unable to assess, not moving eyes spontaneously, no avoidance of direct light challenge for PERRL assessment, intermittent fluttering of eyelids but not 2/2 to stimuli or purposeful) Conjunctiva: Negative for: Injected, Icteric Mouth: Positive for: Moist Mucous Membranes, Other (ETT in place with bite guard ). Negative for: Drooling Nose (External): Positive for: Atraumatic, Other (NGT in place). Negative for: Abrasion, Contusion, Laceration Neck: Positive for: Trachea Midline. Negative for: JVD, Lymphadenopathy Respiratory/Chest: Positive for: Clear to Auscultation, Good Air Exchange, Rales (mild-moderate rales in all breath [place], unchanged). Negative for: Accessory Muscle Use, Wheezes, Tachypneic Cardiovascular: Positive for: Normal S1, S2, Other (Intermittently bradycardic, as low as 44 on bedside monitor, usually between 55 and 60's; bradycardia improves when coming off Precedex). Negative for: Murmurs, Irregular Rhythm, Tachycardic Abdomen: Negative for: Distention (obese but not distended, soft on palpation), Normal Bowel Sounds (diminished bowel sounds), Mass/Organomegaly Upper Extremity: Positive for: Normal Inspection. Negative for: Cyanosis, Edema , Normal ROM, NORMAL PULSES (faintly palpable radials +1), Swelling, Erythema, Deformity Lower Extremity: Positive for: Normal Inspection. Negative for: Edema, NORMAL PULSES (unable to palpate bilateral dorsalis pedis or posterior tibials), Cyanosis, Swelling, Erythema, Deformity Neurological: Positive for: Other (intubated and sedated, now off paralytics for ~12 hrs). Negative for: GCS=15 (GCS 3 (E1 V1t M1)), CN II-XII Intact, Speech Normal, Motor Func Grossly Intact Skin: Positive for: Warm, Dry, Normal Color. Negative for: Rashes Psychiatric: Positive for: Other (sedated and intubated, unable to assess). Negative for: Alert, Oriented x 3, Normal Insight, Normal Concentration, Normal Affect, Normal Mood - Medications Active Medications: Active Medications Generic Name Dose Route Start Last Admin Trade Name Freq PRN Reason Stop Dose Admin Albuterol/Ipratropium 3 ml 03/13/17 15:07 03/13/17 15:45 Duoneb 3 Mg/0.5 Mg (3 Ml) Ud IH 3 ml Q2H PRN Administration Shortness of Breath Albuterol/Ipratropium 3 ml 03/13/17 20:00 03/19/17 01:25 Duoneb 3 Mg/0.5 Mg (3 Ml) Ud IH 3 ml [id number] MARICHUY Administration Chlorhexidine Gluconate 15 ml 03/13/17 10:00 03/18/17 17:46 Peridex PO 15 ml BID MARICHUY Administration Hydrocortisone Sodium Succinate 50 mg 03/18/17 22:00 03/18/17 21:10 Solu-Cortef IVP 50 mg Q12 MARICHUY Administration NOREPINEPHRINE BIT/0.9 % NACL 4 mg in 250 mls @ 22.5 mls/hr 03/11/17 23:55 19:00 Levophed 4 Mg/ 250 Ml Ns Premixed IV 0 mcg/min .[id number] PRN 0 mls/hr TITRATE PER MD ORDER Titration Protocol 6 MCG/MIN Epinephrine HCl 1 mg/ Sodium 51 mls @ 3.06 mls/hr 03/12/17 00:35 03/12/17 19: 00 Chloride IV Infused .[id number] PRN Titration TITRATE PER MD ORDER Protocol 1 MCG/MIN Propofol 1,000 mg in 100 mls @ 3.674 mls/hr 03/12/17 07:41 03/19/17 05:31 Diprivan IV 40 mcg/kg/min .Q24H PRN 29.393 mls/hr TITRATE PER MD ORDER Administration Protocol 5 MCG/KG/MIN Cisatracurium Besylate 100 mg/ 260 mls @ 1.91 mls/hr 03/12/17 07:52 03/16/17 17:30 Sodium Chloride IV 0 mcg/kg/min .Q24H PRN 0 mls/hr TITRATE PER MD ORDER Titration Protocol 0.1 MCG/KG/MIN Levetiracetam 1,000 mg/ Sodium 110 mls @ 460 mls/hr 03/12/17 22:00 03/18/17 21:42 Chloride IV 460 mls/hr Q12 MARICHUY Administration Levofloxacin/Dextrose 250 mg in 50 mls @ 50 mls/hr 03/14/17 11:45 03/18/17 09 :35 Levaquin 250mg IVPB 03/22/17 11:46 50 mls/hr DAILY MARICHUY Administration Cefepime HCl 1 gm in 100 mls @ 100 mls/hr 03/15/17 14:00 03/19/17 02:27 Maxipime 1gm IVPB 03/23/17 14:01 100 mls/hr Q12H MARICHUY Administration Protocol Fentanyl Citrate 1,000 mcg in 100 mls @ 15 mls/hr 03/16/17 05:41 03/17/17 06: 36 Fentanyl Citrate/Sodium Chloride 1 Mg/100 Ml IV 0 mcg/hr .Q6H40M PRN 0 mls/hr TITRATE PER MD ORDER Titration Protocol 150 MCG/HR Dexmedetomidine HCl 400 mcg in 100 mls @ 5.67 mls/hr 03/16/17 07:44 03/19/17 05:43 Precedex 4 Mcg/Ml (100 Ml) IV 0.5 mcg/kg/hr .[id number] PRN 14.175 mls/hr Sedation Titration Protocol 0.2 MCG/KG/HR Potassium Chloride 40 meq/ 1,020 mls @ 100 mls/hr 03/17/17 21:40 03/18/17 23: 22 Sodium Chloride IV 100 mls/hr .[id number] MARICHUY Administration Phenytoin 100 mg/ Sodium 52 mls @ 104 mls/hr 03/18/17 10:00 03/18/17 18:48 Chloride IVPB 104 mls/hr TID MARICHUY Administration Dextrose 1,000 mls @ 150 mls/hr 03/18/17 16:26 03/19/17 02:44 Dextrose 5% In Water 1000 Ml IV 150 mls/hr .[id number] MARICHUY Administration Pantoprazole Sodium 40 mg 03/12/17 10:00 03/18/17 09:48 Protonix Inj IVP 40 mg DAILY MARICHUY Administration - Patient Studies Lab Studies: Microbiology Studies 03/16/17 22:00 Blood Culture - Preliminary Blood-Venous NO GROWTH AFTER 48 HOURS 03/16/17 21:30 Blood Culture - Preliminary Blood-Venous NO GROWTH AFTER 48 HOURS 03/16/17 12:13 Gram Stain - Final Sputum Sputum Culture - Final Yeast Species 03/16/17 23:00 Urine Culture - Final Urine,[place] No Growth (<1,000 CFU/ML) Lab Studies 03/19/17 03/19/17 03/19/17 Range/Units 04:22 04:18 01:36 WBC (4.5-11.0) 10^3/ul RBC (3.5-6.1) 10^6/uL Hgb (14.0-18.0) g/dL Hct (42.0-52.0) % MCV (80.0-105.0) fl MCH (25.0-35.0) pg MCHC (31.0-37.0) g/dl RDW (11.5-14.5) % Plt Count (120.0-450.0) 10^3/uL MPV (7.0-11.0) fl Gran % (50.0-68.0) % Lymph % (Auto) (22.0-35.0) % [place] % (Auto) (1.0-6.0) % Eos % (Auto) (1.5-5.0) % Baso % (Auto) (0.0-3.0) % Gran # (1.4-6.5) Lymph # (1.2-3.4) [place] # (0.1-0.6) Eos # (0.0-0.7) Baso # (0.0-2.0) K/mm3 PT (9.9-11.8) Seconds INR (0.93-1.08) APTT (23.7-30.8) Seconds pCO2 28 L (35-45) mm/Hg pO2 189.0 H (80-100) mm/Hg HCO3 21.3 (21-28) mmol/L ABG pH 7.49 H (7.35-7.45) ABG Total CO2 22.2 (22-28) mmol.L ABG O2 Saturation 98.8 H (95-98) % ABG O2 Content 18.0 (15-23) ML/dl ABG Base Excess -0.9 (-2.0-3.0) mmol/L ABG Hemoglobin 13.0 (11.7-17.4) g/dL ABG Carboxyhemoglobin 1.2 (0.5-1.5) % POC ABG HHb (Measured) 1.2 (0-5) % ABG Methemoglobin 1.2 (0.0-3.0) % ABG O2 Capacity 18.2 (16-24) mL/dl Hgb O2 Saturation 96.5 (95.0-98.0) % FiO2 40.0 % Sodium (132-148) mmol/L Potassium (3.6-5.0) mmol/L Chloride (98-107) mmol/L Carbon Dioxide (21-33) mmol/L Anion Gap (10-20) BUN (7-21) mg/dL Creatinine (0.8-1.5) mg/dL Est GFR ( Amer) Est GFR (Non-Af Amer) POC Glucose (mg/dL) 119 H 137 H (65-110) mg/dL Random Glucose (70-110) mg/dL Calcium (8.4-10.5) mg/dL Phosphorus (2.5-4.5) mg/dL Magnesium (1.7-2.2) mg/dL Iron (45-180) ug/dL TIBC (261-462) ug/dL % Saturation (20-55) % Ferritin ng/mL Total Bilirubin (0.2-1.3) mg/dL AST (17-59) U/L ALT (7-56) U/L Alkaline Phosphatase (38-126) U/L Total Protein (5.8-8.3) g/dL Albumin (3.0-4.8) g/dL Globulin gm/dL Albumin/Globulin Ratio (1.1-1.8) Vancomycin Trough (5.0-10.0) ug/mL Pneumocystis Source S. pneumoniae Antigen 03/18/17 03/18/17 03/18/17 Range/Units Unknown Unknown 21:29 WBC (4.5-11.0) 10^3/ul RBC (3.5-6.1) 10^6/uL Hgb (14.0-18.0) g/dL Hct (42.0-52.0) % MCV (80.0-105.0) fl MCH (25.0-35.0) pg MCHC (31.0-37.0) g/dl RDW (11.5-14.5) % Plt Count (120.0-450.0) 10^3/uL MPV (7.0-11.0) fl Gran % (50.0-68.0) % Lymph % (Auto) (22.0-35.0) % [place] % (Auto) (1.0-6.0) % Eos % (Auto) (1.5-5.0) % Baso % (Auto) (0.0-3.0) % Gran # (1.4-6.5) Lymph # (1.2-3.4) [place] # (0.1-0.6) Eos # (0.0-0.7) Baso # (0.0-2.0) K/mm3 PT (9.9-11.8) Seconds INR (0.93-1.08) APTT (23.7-30.8) Seconds pCO2 (35-45) mm/Hg pO2 (80-100) mm/Hg HCO3 (21-28) mmol/L ABG pH (7.35-7.45) ABG Total CO2 (22-28) mmol.L ABG O2 Saturation (95-98) % ABG O2 Content (15-23) ML/dl ABG Base Excess (-2.0-3.0) mmol/L ABG Hemoglobin (11.7-17.4) g/dL ABG Carboxyhemoglobin (0.5-1.5) % POC ABG HHb (Measured) (0-5) % ABG Methemoglobin (0.0-3.0) % ABG O2 Capacity (16-24) mL/dl Hgb O2 Saturation (95.0-98.0) % FiO2 % Sodium (132-148) mmol/L Potassium (3.6-5.0) mmol/L Chloride (98-107) mmol/L Carbon Dioxide (21-33) mmol/L Anion Gap (10-20) BUN (7-21) mg/dL Creatinine (0.8-1.5) mg/dL Est GFR ( Amer) Est GFR (Non-Af Amer) POC Glucose (mg/dL) 108 (65-110) mg/dL Random Glucose (70-110) mg/dL Calcium (8.4-10.5) mg/dL Phosphorus (2.5-4.5) mg/dL Magnesium (1.7-2.2) mg/dL Iron 50 (45-180) ug/dL TIBC 204 L (261-462) ug/dL % Saturation 24 (20-55) % Ferritin ng/mL Total Bilirubin (0.2-1.3) mg/dL AST (17-59) U/L ALT (7-56) U/L Alkaline Phosphatase (38-126) U/L Total Protein (5.8-8.3) g/dL Albumin (3.0-4.8) g/dL Globulin gm/dL Albumin/Globulin Ratio (1.1-1.8) Vancomycin Trough 10.5 H (5.0-10.0) ug/mL Pneumocystis Source S. pneumoniae Antigen 03/18/17 03/18/17 03/18/17 Range/Units 16:03 15:45 11:41 WBC (4.5-11.0) 10^3/ul RBC (3.5-6.1) 10^6/uL Hgb (14.0-18.0) g/dL Hct (42.0-52.0) % MCV (80.0-105.0) fl MCH (25.0-35.0) pg MCHC (31.0-37.0) g/dl RDW (11.5-14.5) % Plt Count (120.0-450.0) 10^3/uL MPV (7.0-11.0) fl Gran % (50.0-68.0) % Lymph % (Auto) (22.0-35.0) % [place] % (Auto) (1.0-6.0) % Eos % (Auto) (1.5-5.0) % Baso % (Auto) (0.0-3.0) % Gran # (1.4-6.5) Lymph # (1.2-3.4) [place] # (0.1-0.6) Eos # (0.0-0.7) Baso # (0.0-2.0) K/mm3 PT (9.9-11.8) Seconds INR (0.93-1.08) APTT (23.7-30.8) Seconds pCO2 (35-45) mm/Hg pO2 (80-100) mm/Hg HCO3 (21-28) mmol/L ABG pH (7.35-7.45) ABG Total CO2 (22-28) mmol.L ABG O2 Saturation (95-98) % ABG O2 Content (15-23) ML/dl ABG Base Excess (-2.0-3.0) mmol/L ABG Hemoglobin (11.7-17.4) g/dL ABG Carboxyhemoglobin (0.5-1.5) % POC ABG HHb (Measured) (0-5) % ABG Methemoglobin (0.0-3.0) % ABG O2 Capacity (16-24) mL/dl Hgb O2 Saturation (95.0-98.0) % FiO2 % Sodium 150 H (132-148) mmol/L Potassium 3.5 L (3.6-5.0) mmol/L Chloride 114 H (98-107) mmol/L Carbon Dioxide 23 (21-33) mmol/L Anion Gap 17 (10-20) BUN 46 H (7-21) mg/dL Creatinine 1.3 (0.8-1.5) mg/dL Est GFR ( Amer) > 60 Est GFR (Non-Af Amer) > 60 POC Glucose (mg/dL) 112 H 143 H (65-110) mg/dL Random Glucose 121 H (70-110) mg/dL Calcium 9.0 (8.4-10.5) mg/dL Phosphorus (2.5-4.5) mg/dL Magnesium (1.7-2.2) mg/dL Iron (45-180) ug/dL TIBC (261-462) ug/dL % Saturation (20-55) % Ferritin ng/mL Total Bilirubin (0.2-1.3) mg/dL AST (17-59) U/L ALT (7-56) U/L Alkaline Phosphatase (38-126) U/L Total Protein (5.8-8.3) g/dL Albumin (3.0-4.8) g/dL Globulin gm/dL Albumin/Globulin Ratio (1.1-1.8) Vancomycin Trough (5.0-10.0) ug/mL Pneumocystis Source S. pneumoniae Antigen 03/18/17 03/18/17 03/18/17 Range/Units 08:00 07:19 05:45 WBC (4.5-11.0) 10^3/ul RBC (3.5-6.1) 10^6/uL Hgb (14.0-18.0) g/dL Hct (42.0-52.0) % MCV (80.0-105.0) fl MCH (25.0-35.0) pg MCHC (31.0-37.0) g/dl RDW (11.5-14.5) % Plt Count (120.0-450.0) 10^3/uL MPV (7.0-11.0) fl Gran % (50.0-68.0) % Lymph % (Auto) (22.0-35.0) % [place] % (Auto) (1.0-6.0) % Eos % (Auto) (1.5-5.0) % Baso % (Auto) (0.0-3.0) % Gran # (1.4-6.5) Lymph # (1.2-3.4) [place] # (0.1-0.6) Eos # (0.0-0.7) Baso # (0.0-2.0) K/mm3 PT 12.2 H (9.9-11.8) Seconds INR 1.13 H (0.93-1.08) APTT 24.3 (23.7-30.8) Seconds pCO2 (35-45) mm/Hg pO2 (80-100) mm/Hg HCO3 (21-28) mmol/L ABG pH (7.35-7.45) ABG Total CO2 (22-28) mmol.L ABG O2 Saturation (95-98) % ABG O2 Content (15-23) ML/dl ABG Base Excess (-2.0-3.0) mmol/L ABG Hemoglobin (11.7-17.4) g/dL ABG Carboxyhemoglobin (0.5-1.5) % POC ABG HHb (Measured) (0-5) % ABG Methemoglobin (0.0-3.0) % ABG O2 Capacity (16-24) mL/dl Hgb O2 Saturation (95.0-98.0) % FiO2 % Sodium (132-148) mmol/L Potassium (3.6-5.0) mmol/L Chloride (98-107) mmol/L Carbon Dioxide (21-33) mmol/L Anion Gap (10-20) BUN (7-21) mg/dL Creatinine (0.8-1.5) mg/dL Est GFR ( Amer) Est GFR (Non-Af Amer) POC Glucose (mg/dL) 146 H (65-110) mg/dL Random Glucose (70-110) mg/dL Calcium (8.4-10.5) mg/dL Phosphorus (2.5-4.5) mg/dL Magnesium (1.7-2.2) mg/dL Iron (45-180) ug/dL TIBC (261-462) ug/dL % Saturation (20-55) % Ferritin 312.0 ng/mL Total Bilirubin (0.2-1.3) mg/dL AST (17-59) U/L ALT (7-56) U/L Alkaline Phosphatase (38-126) U/L Total Protein (5.8-8.3) g/dL Albumin (3.0-4.8) g/dL Globulin gm/dL Albumin/Globulin Ratio (1.1-1.8) Vancomycin Trough (5.0-10.0) ug/mL Pneumocystis Source S. pneumoniae Antigen 03/18/17 03/18/17 03/18/17 Range/Units 05:45 05:45 05:00 WBC 13.0 H (4.5-11.0) 10^3/ul RBC 3.02 L (3.5-6.1) 10^6/uL Hgb 8.7 L (14.0-18.0) g/dL Hct 25.9 L (42.0-52.0) % MCV 85.8 (80.0-105.0) fl MCH 28.8 (25.0-35.0) pg MCHC 33.6 (31.0-37.0) g/dl RDW 14.2 (11.5-14.5) % Plt Count 173 (120.0-450.0) 10^3/uL MPV 10.0 (7.0-11.0) fl Gran % 69.8 H (50.0-68.0) % Lymph % (Auto) 20.8 L (22.0-35.0) % [place] % (Auto) 8.2 H (1.0-6.0) % Eos % (Auto) 1.0 L (1.5-5.0) % Baso % (Auto) 0.2 (0.0-3.0) % Gran # 9.07 H (1.4-6.5) Lymph # 2.7 (1.2-3.4) [place] # 1.1 H (0.1-0.6) Eos # 0.1 (0.0-0.7) Baso # 0.02 (0.0-2.0) K/mm3 PT (9.9-11.8) Seconds INR (0.93-1.08) APTT (23.7-30.8) Seconds pCO2 27 L (35-45) mm/Hg pO2 133.0 H (80-100) mm/Hg HCO3 19.2 L (21-28) mmol/L ABG pH 7.46 H (7.35-7.45) ABG Total CO2 20.0 L (22-28) mmol.L ABG O2 Saturation 99.0 H (95-98) % ABG O2 Content 11.7 L (15-23) ML/dl ABG Base Excess -3.9 L (-2.0-3.0) mmol/L ABG Hemoglobin 8.4 L (11.7-17.4) g/dL ABG Carboxyhemoglobin 1.6 H (0.5-1.5) % POC ABG HHb (Measured) 1.0 (0-5) % ABG Methemoglobin 1.1 (0.0-3.0) % ABG O2 Capacity 11.8 L (16-24) mL/dl Hgb O2 Saturation 96.3 (95.0-98.0) % FiO2 40.0 % Sodium 152 H (132-148) mmol/L Potassium 3.5 L (3.6-5.0) mmol/L Chloride 118 H (98-107) mmol/L Carbon Dioxide 23 (21-33) mmol/L Anion Gap 15 (10-20) BUN 49 H (7-21) mg/dL Creatinine 1.5 (0.8-1.5) mg/dL Est GFR ( Amer) > 60 Est GFR (Non-Af Amer) 52 POC Glucose (mg/dL) (65-110) mg/dL Random Glucose 118 H (70-110) mg/dL Calcium 8.7 (8.4-10.5) mg/dL Phosphorus 4.4 (2.5-4.5) mg/dL Magnesium 2.2 (1.7-2.2) mg/dL Iron (45-180) ug/dL TIBC (261-462) ug/dL % Saturation (20-55) % Ferritin ng/mL Total Bilirubin 1.9 H (0.2-1.3) mg/dL AST 54 (17-59) U/L ALT 97 H (7-56) U/L Alkaline Phosphatase 103 (38-126) U/L Total Protein 6.6 (5.8-8.3) g/dL Albumin 3.3 (3.0-4.8) g/dL Globulin 3.3 gm/dL Albumin/Globulin Ratio 1.0 L (1.1-1.8) Vancomycin Trough (5.0-10.0) ug/mL Pneumocystis Source S. pneumoniae Antigen 03/18/17 03/17/17 03/17/17 Range/Units 02:55 22:03 11:27 WBC (4.5-11.0) 10^3/ul RBC (3.5-6.1) 10^6/uL Hgb (14.0-18.0) g/dL Hct (42.0-52.0) % MCV (80.0-105.0) fl MCH (25.0-35.0) pg MCHC (31.0-37.0) g/dl RDW (11.5-14.5) % Plt Count (120.0-450.0) 10^3/uL MPV (7.0-11.0) fl Gran % (50.0-68.0) % Lymph % (Auto) (22.0-35.0) % [place] % (Auto) (1.0-6.0) % Eos % (Auto) (1.5-5.0) % Baso % (Auto) (0.0-3.0) % Gran # (1.4-6.5) Lymph # (1.2-3.4) [place] # (0.1-0.6) Eos # (0.0-0.7) Baso # (0.0-2.0) K/mm3 PT (9.9-11.8) Seconds INR (0.93-1.08) APTT (23.7-30.8) Seconds pCO2 (35-45) mm/Hg pO2 (80-100) mm/Hg HCO3 (21-28) mmol/L ABG pH (7.35-7.45) ABG Total CO2 (22-28) mmol.L ABG O2 Saturation (95-98) % ABG O2 Content (15-23) ML/dl ABG Base Excess (-2.0-3.0) mmol/L ABG Hemoglobin (11.7-17.4) g/dL ABG Carboxyhemoglobin (0.5-1.5) % POC ABG HHb (Measured) (0-5) % ABG Methemoglobin (0.0-3.0) % ABG O2 Capacity (16-24) mL/dl Hgb O2 Saturation (95.0-98.0) % FiO2 % Sodium (132-148) mmol/L Potassium (3.6-5.0) mmol/L Chloride (98-107) mmol/L Carbon Dioxide (21-33) mmol/L Anion Gap (10-20) BUN (7-21) mg/dL Creatinine (0.8-1.5) mg/dL Est GFR ( Amer) Est GFR (Non-Af Amer) POC Glucose (mg/dL) 150 H 136 H 111 H (65-110) mg/dL Random Glucose (70-110) mg/dL Calcium (8.4-10.5) mg/dL Phosphorus (2.5-4.5) mg/dL Magnesium (1.7-2.2) mg/dL Iron (45-180) ug/dL TIBC (261-462) ug/dL % Saturation (20-55) % Ferritin ng/mL Total Bilirubin (0.2-1.3) mg/dL AST (17-59) U/L ALT (7-56) U/L Alkaline Phosphatase (38-126) U/L Total Protein (5.8-8.3) g/dL Albumin (3.0-4.8) g/dL Globulin gm/dL Albumin/Globulin Ratio (1.1-1.8) Vancomycin Trough (5.0-10.0) ug/mL Pneumocystis Source S. pneumoniae Antigen 03/17/17 03/16/17 Range/Units 08:01 05:30 WBC (4.5-11.0) 10^3/ul RBC (3.5-6.1) 10^6/uL Hgb (14.0-18.0) g/dL Hct (42.0-52.0) % MCV (80.0-105.0) fl MCH (25.0-35.0) pg MCHC (31.0-37.0) g/dl RDW (11.5-14.5) % Plt Count (120.0-450.0) 10^3/uL MPV (7.0-11.0) fl Gran % (50.0-68.0) % Lymph % (Auto) (22.0-35.0) % [place] % (Auto) (1.0-6.0) % Eos % (Auto) (1.5-5.0) % Baso % (Auto) (0.0-3.0) % Gran # (1.4-6.5) Lymph # (1.2-3.4) [place] # (0.1-0.6) Eos # (0.0-0.7) Baso # (0.0-2.0) K/mm3 PT (9.9-11.8) Seconds INR (0.93-1.08) APTT (23.7-30.8) Seconds pCO2 (35-45) mm/Hg pO2 (80-100) mm/Hg HCO3 (21-28) mmol/L ABG pH (7.35-7.45) ABG Total CO2 (22-28) mmol.L ABG O2 Saturation (95-98) % ABG O2 Content (15-23) ML/dl ABG Base Excess (-2.0-3.0) mmol/L ABG Hemoglobin (11.7-17.4) g/dL ABG Carboxyhemoglobin (0.5-1.5) % POC ABG HHb (Measured) (0-5) % ABG Methemoglobin (0.0-3.0) % ABG O2 Capacity (16-24) mL/dl Hgb O2 Saturation (95.0-98.0) % FiO2 % Sodium (132-148) mmol/L Potassium (3.6-5.0) mmol/L Chloride (98-107) mmol/L Carbon Dioxide (21-33) mmol/L Anion Gap (10-20) BUN (7-21) mg/dL Creatinine (0.8-1.5) mg/dL Est GFR ( Amer) Est GFR (Non-Af Amer) POC Glucose (mg/dL) 138 H (65-110) mg/dL Random Glucose (70-110) mg/dL Calcium (8.4-10.5) mg/dL Phosphorus (2.5-4.5) mg/dL Magnesium (1.7-2.2) mg/dL Iron (45-180) ug/dL TIBC (261-462) ug/dL % Saturation (20-55) % Ferritin ng/mL Total Bilirubin (0.2-1.3) mg/dL AST (17-59) U/L ALT (7-56) U/L Alkaline Phosphatase (38-126) U/L Total Protein (5.8-8.3) g/dL Albumin (3.0-4.8) g/dL Globulin gm/dL Albumin/Globulin Ratio (1.1-1.8) Vancomycin Trough (5.0-10.0) ug/mL Pneumocystis Source Serum S. pneumoniae Antigen Not detected Laboratory Results - last 24 hr 03/16/17 03/17/17 03/17/17 05:30 08:01 11:27 WBC RBC Hgb Hct MCV MCH MCHC RDW Plt Count MPV Gran % Lymph % (Auto) [place] % (Auto) Eos % (Auto) Baso % (Auto) Gran # Lymph # [place] # Eos # Baso # PT INR APTT pCO2 pO2 HCO3 ABG pH ABG Total CO2 ABG O2 Saturation ABG O2 Content ABG Base Excess ABG Hemoglobin ABG Carboxyhemoglobin POC ABG HHb (Measured) ABG Methemoglobin ABG O2 Capacity Hgb O2 Saturation FiO2 Sodium Potassium Chloride Carbon Dioxide Anion Gap BUN Creatinine Est GFR ( Amer) Est GFR (Non-Af Amer) POC Glucose (mg/dL) 138 H 111 H Random Glucose Calcium Phosphorus Magnesium Iron TIBC % Saturation Ferritin Total Bilirubin AST ALT Alkaline Phosphatase Total Protein Albumin Globulin Albumin/Globulin Ratio Vancomycin Trough Pneumocystis Source Serum S. pneumoniae Antigen Not detected 03/17/17 03/18/17 03/18/17 22:03 02:55 05:00 WBC RBC Hgb Hct MCV MCH MCHC RDW Plt Count MPV Gran % Lymph % (Auto) [place] % (Auto) Eos % (Auto) Baso % (Auto) Gran # Lymph # [place] # Eos # Baso # PT INR APTT pCO2 27 L pO2 133.0 H HCO3 19.2 L ABG pH 7.46 H ABG Total CO2 20.0 L ABG O2 Saturation 99.0 H ABG O2 Content 11.7 L ABG Base Excess -3.9 L ABG Hemoglobin 8.4 L ABG Carboxyhemoglobin 1.6 H POC ABG HHb (Measured) 1.0 ABG Methemoglobin 1.1 ABG O2 Capacity 11.8 L Hgb O2 Saturation 96.3 FiO2 40.0 Sodium Potassium Chloride Carbon Dioxide Anion Gap BUN Creatinine Est GFR ( Amer) Est GFR (Non-Af Amer) POC Glucose (mg/dL) 136 H 150 H Random Glucose Calcium Phosphorus Magnesium Iron TIBC % Saturation Ferritin Total Bilirubin AST ALT Alkaline Phosphatase Total Protein Albumin Globulin Albumin/Globulin Ratio Vancomycin Trough Pneumocystis Source S. pneumoniae Antigen 03/18/17 03/18/17 03/18/17 05:45 05:45 05:45 WBC 13.0 H RBC 3.02 L Hgb 8.7 L Hct 25.9 L MCV 85.8 MCH 28.8 MCHC 33.6 RDW 14.2 Plt Count 173 MPV 10.0 Gran % 69.8 H Lymph % (Auto) 20.8 L [place] % (Auto) 8.2 H Eos % (Auto) 1.0 L Baso % (Auto) 0.2 Gran # 9.07 H Lymph # 2.7 [place] # 1.1 H Eos # 0.1 Baso # 0.02 PT 12.2 H INR 1.13 H APTT 24.3 pCO2 pO2 HCO3 ABG pH ABG Total CO2 ABG O2 Saturation ABG O2 Content ABG Base Excess ABG Hemoglobin ABG Carboxyhemoglobin POC ABG HHb (Measured) ABG Methemoglobin ABG O2 Capacity Hgb O2 Saturation FiO2 Sodium 152 H Potassium 3.5 L Chloride 118 H Carbon Dioxide 23 Anion Gap 15 BUN 49 H Creatinine 1.5 Est GFR ( Amer) > 60 Est GFR (Non-Af Amer) 52 POC Glucose (mg/dL) Random Glucose 118 H Calcium 8.7 Phosphorus 4.4 Magnesium 2.2 Iron TIBC % Saturation Ferritin Total Bilirubin 1.9 H AST 54 ALT 97 H Alkaline Phosphatase 103 Total Protein 6.6 Albumin 3.3 Globulin 3.3 Albumin/Globulin Ratio 1.0 L Vancomycin Trough Pneumocystis Source S. pneumoniae Antigen 03/18/17 03/18/17 03/18/17 07:19 08:00 11:41 WBC RBC Hgb Hct MCV MCH MCHC RDW Plt Count MPV Gran % Lymph % (Auto) [place] % (Auto) Eos % (Auto) Baso % (Auto) Gran # Lymph # [place] # Eos # Baso # PT INR APTT pCO2 pO2 HCO3 ABG pH ABG Total CO2 ABG O2 Saturation ABG O2 Content ABG Base Excess ABG Hemoglobin ABG Carboxyhemoglobin POC ABG HHb (Measured) ABG Methemoglobin ABG O2 Capacity Hgb O2 Saturation FiO2 Sodium Potassium Chloride Carbon Dioxide Anion Gap BUN Creatinine Est GFR ( Amer) Est GFR (Non-Af Amer) POC Glucose (mg/dL) 146 H 143 H Random Glucose Calcium Phosphorus Magnesium Iron TIBC % Saturation Ferritin 312.0 Total Bilirubin AST ALT Alkaline Phosphatase Total Protein Albumin Globulin Albumin/Globulin Ratio Vancomycin Trough Pneumocystis Source S. pneumoniae Antigen 03/18/17 03/18/17 03/18/17 15:45 16:03 21:29 WBC RBC Hgb Hct MCV MCH MCHC RDW Plt Count MPV Gran % Lymph % (Auto) [place] % (Auto) Eos % (Auto) Baso % (Auto) Gran # Lymph # [place] # Eos # Baso # PT INR APTT pCO2 pO2 HCO3 ABG pH ABG Total CO2 ABG O2 Saturation ABG O2 Content ABG Base Excess ABG Hemoglobin ABG Carboxyhemoglobin POC ABG HHb (Measured) ABG Methemoglobin ABG O2 Capacity Hgb O2 Saturation FiO2 Sodium 150 H Potassium 3.5 L Chloride 114 H Carbon Dioxide 23 Anion Gap 17 BUN 46 H Creatinine 1.3 Est GFR ( Amer) > 60 Est GFR (Non-Af Amer) > 60 POC Glucose (mg/dL) 112 H 108 Random Glucose 121 H Calcium 9.0 Phosphorus Magnesium Iron TIBC % Saturation Ferritin Total Bilirubin AST ALT Alkaline Phosphatase Total Protein Albumin Globulin Albumin/Globulin Ratio Vancomycin Trough Pneumocystis Source S. pneumoniae Antigen 03/18/17 03/18/17 03/19/17 Unknown Unknown 01:36 WBC RBC Hgb Hct MCV MCH MCHC RDW Plt Count MPV Gran % Lymph % (Auto) [place] % (Auto) Eos % (Auto) Baso % (Auto) Gran # Lymph # [place] # Eos # Baso # PT INR APTT pCO2 pO2 HCO3 ABG pH ABG Total CO2 ABG O2 Saturation ABG O2 Content ABG Base Excess ABG Hemoglobin ABG Carboxyhemoglobin POC ABG HHb (Measured) ABG Methemoglobin ABG O2 Capacity Hgb O2 Saturation FiO2 Sodium Potassium Chloride Carbon Dioxide Anion Gap BUN Creatinine Est GFR ( Amer) Est GFR (Non-Af Amer) POC Glucose (mg/dL) 137 H Random Glucose Calcium Phosphorus Magnesium Iron 50 TIBC 204 L % Saturation 24 Ferritin Total Bilirubin AST ALT Alkaline Phosphatase Total Protein Albumin Globulin Albumin/Globulin Ratio Vancomycin Trough 10.5 H Pneumocystis Source S. pneumoniae Antigen 03/19/17 03/19/17 04:18 04:22 WBC RBC Hgb Hct MCV MCH MCHC RDW Plt Count MPV Gran % Lymph % (Auto) [place] % (Auto) Eos % (Auto) Baso % (Auto) Gran # Lymph # [place] # Eos # Baso # PT INR APTT pCO2 28 L pO2 189.0 H HCO3 21.3 ABG pH 7.49 H ABG Total CO2 22.2 ABG O2 Saturation 98.8 H ABG O2 Content 18.0 ABG Base Excess -0.9 ABG Hemoglobin 13.0 ABG Carboxyhemoglobin 1.2 POC ABG HHb (Measured) 1.2 ABG Methemoglobin 1.2 ABG O2 Capacity 18.2 Hgb O2 Saturation 96.5 FiO2 40.0 Sodium Potassium Chloride Carbon Dioxide Anion Gap BUN Creatinine Est GFR ( Amer) Est GFR (Non-Af Amer) POC Glucose (mg/dL) 119 H Random Glucose Calcium Phosphorus Magnesium Iron TIBC % Saturation Ferritin Total Bilirubin AST ALT Alkaline Phosphatase Total Protein Albumin Globulin Albumin/Globulin Ratio Vancomycin Trough Pneumocystis Source S. pneumoniae Antigen Fingerstick Blood Sugar Results: 119 Review of Systems - Review of Systems Systems not reviewed;Unavailable: Intubated Critical Care Progress Note - Nutrition Nutrition: Nutrition Category Date Time Status NPO Diet [DIET] Diets 03/14/17 Breakfast Ordered Assessment/Plan - Assessment and Plan (Free Text) Assessment: This is a 36 yo M with past medical history of substance abuse, depression, bipolar disorder, hypertension, anxiety disorder that presented with cardiac arrest in the field (downtime unknown) due to multi-drug overdose, with two further episodes of cardiac arrest on arrival, and likely witnessed seizure prior to initiation of increased sedation and paralytics. Another witnessed seizure when attempting to come off remaining Propofol/Precedex. Remains off paralytics, still requiring high doses of sedatives due to tachypnea/fighting the ventilator. Pending Trach and G-tube by surgery, then fdc care facility. Prognosis poor. Plan: Neuro: -currently sedated on Propofol and Precedex -weaned from Nimbex, off >48 hours, if becomes tachypnic and fighting ventilator and unable to control with increased sedation, may need to reparalyze -MRI brain notable for likely anoxic injury in thalamix area bilaterally -No longer actively cooling, maintain normothermia -Urine toxicology positive for opiates, barbiturates and benzos -Seizure precautions, ppx with Keppra 1000mg IV q12, Dilantin increased to TID as per Neuro -Neurology consulted - Dr. Rene, appreciate all recs; poor prognosis given burst suppression pattern on EEG with seizure when weaned from sedation -Poison control following Pulm: -Satting 95-100%, ABG this AM reviewed, -CXR this AM reviewed, -Currently on PRVC , continue to monitor Cardio: -Off all pressor support x7 days, maintaining MAP > 65 consistently -Intermittent bradycardic episodes to 50's today, decreased precedex sedation, continue to monitor -Troponins increased from <0.01 to 0.13 on admission -most recent EKG 03/13, notable for sinus halina to 48 and prolonged QTc at 537 ( unsurprising in setting of multi-drug abuse) -Cardiology consulted - Dr. Anderson -Echo ordered, notable for EF 54%, normal size/wall thickness LV, flattened septum, mild Pulm HTN/TR, mild Rv dilation GI: -NPO -NGT placed, pending Gastrostomy tube placement -GI prophylaxis with protonix -LFTs improving -s/p x3 dosing of Acetadote as per Poison Control, no additional doses ordered Renal: -Cr improving, today 1.0 -Hypernatremia, started on D5W as per Nephro, Na today 154, added free water flushes 300cc q6h, f/u BMP -Will continue to monitor and treat electrolyte abnormalities as indicated; persistently low K requiring chronic repletion -Monitor I's and O's -Nephro following, appreciate all recs Endo: -Fingersticks q4h -Maintain euglycemia between 140-180's -Stress dose steroids with solu-cortef, decreased to 50mg x1 today, will d/c for tomorrow ID: -Blood and urine cultures drawn, negative -Most recent sputum (03/16) positive for light growth yeast, all other sputum cultures negative -Patient empirically covered with Cefepime, Levofloxacin, and Vanco; now off abx -No fever reported overnight Heme: -Hgb improved to 9.9, stool occult pending, iron panel wnl -SCDs for DVT ppx -Coags stable, INR 1.14, was 1.13 Dispo: ICU, intubated/sedated, s/p seizure when weaning sedation, s/p EEG with burst-suppression pattern, poor prognosis, pending Trach/PEG, prognosis very poor FEN: NPO, NS with KCl 40mEq at 100cc/hr, D5W 100cc/hr, Free water flushes via NGT 300cc q6h Access: Peripheral IVs, R-femoral TLC removed yesterday Consults: Neuro, Cardio, Nephro, Poison Control, Surgery Ppx: Protonix covers for GI, SCDs for DVT Patient seen, examined, and reviewed with attending, Dr. Call <Markus Call - Last Filed: 03/19/17 12:23> CCU Objective - Vital Signs / Intake & Output Vital Signs (Last 4 hours): Vital Signs Pulse BP Pulse Ox 03/19/17 10:30 59 L 100 03/19/17 10:20 60 100 03/19/17 10:10 61 100 03/19/17 10:00 58 L 143/77 100 03/19/17 09:50 60 100 03/19/17 09:40 59 L 100 03/19/17 09:30 61 100 03/19/17 09:20 62 100 03/19/17 09:10 65 100 03/19/17 09:00 63 143/76 100 03/19/17 08:50 63 100 03/19/17 08:40 61 100 03/19/17 08:30 60 100 Intake and Output (Last 8hrs): Intake & Output 03/18/17 03/19/17 03/19/17 22:59 06:59 14:59 Intake Total 250 2401 0 Output Total 2500 2500 Balance -2250 -99 0 Weight 229 lb Intake: IV 250 2401 0 Femoral 1951 Output: Urine 2500 2500 Urethral ([place]) 2500 2500 - Medications Active Medications: Active Medications Generic Name Dose Route Start Last Admin Trade Name Freq PRN Reason Stop Dose Admin Albuterol/Ipratropium 3 ml 03/13/17 15:07 03/13/17 15:45 Duoneb 3 Mg/0.5 Mg (3 Ml) Ud IH 3 ml Q2H PRN Administration Shortness of Breath Albuterol/Ipratropium 3 ml 03/13/17 20:00 03/19/17 07:43 Duoneb 3 Mg/0.5 Mg (3 Ml) Ud IH 3 ml [id number] MARICHUY Administration Chlorhexidine Gluconate 15 ml 03/13/17 10:00 03/19/17 11:11 Peridex PO 15 ml BID MAR[place]UY Administration Propofol 1,000 mg in 100 mls @ 3.674 mls/hr 03/12/17 07:41 03/19/17 11:12 Diprivan IV 50 mcg/kg/min .Q24H PRN 36.741 mls/hr TITRATE PER MD ORDER Titration Protocol 5 MCG/KG/MIN Levetiracetam 1,000 mg/ Sodium 110 mls @ 460 mls/hr 03/12/17 22:00 03/19/17 09:46 Chloride IV 460 mls/hr Q12 MAR[place]UY Administration Dexmedetomidine HCl 400 mcg in 100 mls @ 5.67 mls/hr 03/16/17 07:44 03/19/17 11:13 Precedex 4 Mcg/Ml (100 Ml) IV 1 mcg/kg/hr .[id number] PRN 28.35 mls/hr Sedation Titration Protocol 0.2 MCG/KG/HR Potassium Chloride 40 meq/ 1,020 mls @ 100 mls/hr 03/17/17 21:40 03/19/17 09: 43 Sodium Chloride IV 100 mls/hr .[id number] MARICHUY Administration Phenytoin 100 mg/ Sodium 52 mls @ 104 mls/hr 03/18/17 10:00 03/19/17 09:44 Chloride IVPB 104 mls/hr TID MARICHUY Administration Dextrose 1,000 mls @ 150 mls/hr 03/18/17 16:26 03/19/17 09:52 Dextrose 5% In Water 1000 Ml IV 150 mls/hr .[id number] MAR[place]UY Administration Pantoprazole Sodium 40 mg 03/12/17 10:00 03/19/17 09:51 Protonix Inj IVP 40 mg DAILY MARICHUY Administration - Patient Studies Lab Studies: Microbiology Studies 03/16/17 22:00 Blood Culture - Preliminary Blood-Venous NO GROWTH AFTER 48 HOURS 03/16/17 21:30 Blood Culture - Preliminary Blood-Venous NO GROWTH AFTER 48 HOURS 03/16/17 12:13 Gram Stain - Final Sputum Sputum Culture - Final Yeast Species 03/16/17 23:00 Urine Culture - Final Urine,[place] No Growth (<1,000 CFU/ML) Lab Studies 03/19/17 03/19/17 03/19/17 Range/Units 11:28 08:02 07:45 WBC (4.5-11.0) 10^3/ul RBC (3.5-6.1) 10^6/uL Hgb (14.0-18.0) g/dL Hct (42.0-52.0) % MCV (80.0-105.0) fl MCH (25.0-35.0) pg MCHC (31.0-37.0) g/dl RDW (11.5-14.5) % Plt Count (120.0-450.0) 10^3/uL MPV (7.0-11.0) fl Gran % (50.0-68.0) % Lymph % (Auto) (22.0-35.0) % [place] % (Auto) (1.0-6.0) % Eos % (Auto) (1.5-5.0) % Baso % (Auto) (0.0-3.0) % Gran # (1.4-6.5) Lymph # (1.2-3.4) [place] # (0.1-0.6) Eos # (0.0-0.7) Baso # (0.0-2.0) K/mm3 PT (9.9-11.8) Seconds INR (0.93-1.08) APTT (23.7-30.8) Seconds pCO2 (35-45) mm/Hg pO2 (80-100) mm/Hg HCO3 (21-28) mmol/L ABG pH (7.35-7.45) ABG Total CO2 (22-28) mmol.L ABG O2 Saturation (95-98) % ABG O2 Content (15-23) ML/dl ABG Base Excess (-2.0-3.0) mmol/L ABG Hemoglobin (11.7-17.4) g/dL ABG Carboxyhemoglobin (0.5-1.5) % POC ABG HHb (Measured) (0-5) % ABG Methemoglobin (0.0-3.0) % ABG O2 Capacity (16-24) mL/dl Hgb O2 Saturation (95.0-98.0) % FiO2 % Sodium (132-148) mmol/L Potassium (3.6-5.0) mmol/L Chloride (98-107) mmol/L Carbon Dioxide (21-33) mmol/L Anion Gap (10-20) BUN (7-21) mg/dL Creatinine (0.8-1.5) mg/dL Est GFR ( Amer) Est GFR (Non-Af Amer) POC Glucose (mg/dL) 156 H 125 H (65-110) mg/dL Random Glucose (70-110) mg/dL Calcium (8.4-10.5) mg/dL Phosphorus 5.3 H (2.5-4.5) mg/dL Magnesium 2.0 (1.7-2.2) mg/dL Ferritin ng/mL Total Bilirubin (0.2-1.3) mg/dL AST (17-59) U/L ALT (7-56) U/L Alkaline Phosphatase (38-126) U/L Total Protein (5.8-8.3) g/dL Albumin (3.0-4.8) g/dL Globulin gm/dL Albumin/Globulin Ratio (1.1-1.8) Pneumocystis Source S. pneumoniae Antigen 03/19/17 03/19/17 03/19/17 Range/Units 05:30 05:30 05:30 WBC 14.5 H (4.5-11.0) 10^3/ul RBC 3.39 L (3.5-6.1) 10^6/uL Hgb 9.9 L (14.0-18.0) g/dL Hct 29.5 L (42.0-52.0) % MCV 87.0 (80.0-105.0) fl MCH 29.2 (25.0-35.0) pg MCHC 33.6 (31.0-37.0) g/dl RDW 14.2 (11.5-14.5) % Plt Count 201 (120.0-450.0) 10^3/uL MPV 9.9 (7.0-11.0) fl Gran % 66.0 (50.0-68.0) % Lymph % (Auto) 23.8 (22.0-35.0) % [place] % (Auto) 8.5 H (1.0-6.0) % Eos % (Auto) 1.5 (1.5-5.0) % Baso % (Auto) 0.2 (0.0-3.0) % Gran # 9.57 H (1.4-6.5) Lymph # 3.5 H (1.2-3.4) [place] # 1.2 H (0.1-0.6) Eos # 0.2 (0.0-0.7) Baso # 0.03 (0.0-2.0) K/mm3 PT 12.3 H (9.9-11.8) Seconds INR 1.14 H (0.93-1.08) APTT 24.2 (23.7-30.8) Seconds pCO2 (35-45) mm/Hg pO2 (80-100) mm/Hg HCO3 (21-28) mmol/L ABG pH (7.35-7.45) ABG Total CO2 (22-28) mmol.L ABG O2 Saturation (95-98) % ABG O2 Content (15-23) ML/dl ABG Base Excess (-2.0-3.0) mmol/L ABG Hemoglobin (11.7-17.4) g/dL ABG Carboxyhemoglobin (0.5-1.5) % POC ABG HHb (Measured) (0-5) % ABG Methemoglobin (0.0-3.0) % ABG O2 Capacity (16-24) mL/dl Hgb O2 Saturation (95.0-98.0) % FiO2 % Sodium 149 H (132-148) mmol/L Potassium 3.8 (3.6-5.0) mmol/L Chloride 113 H (98-107) mmol/L Carbon Dioxide 25 (21-33) mmol/L Anion Gap 15 (10-20) BUN 40 H (7-21) mg/dL Creatinine 1.0 (0.8-1.5) mg/dL Est GFR ( Amer) > 60 Est GFR (Non-Af Amer) > 60 POC Glucose (mg/dL) (65-110) mg/dL Random Glucose 101 (70-110) mg/dL Calcium 9.0 (8.4-10.5) mg/dL Phosphorus (2.5-4.5) mg/dL Magnesium (1.7-2.2) mg/dL Ferritin ng/mL Total Bilirubin 1.5 H (0.2-1.3) mg/dL AST 53 (17-59) U/L ALT 85 H (7-56) U/L Alkaline Phosphatase 102 (38-126) U/L Total Protein 7.5 (5.8-8.3) g/dL Albumin 3.8 (3.0-4.8) g/dL Globulin 3.7 gm/dL Albumin/Globulin Ratio 1.0 L (1.1-1.8) Pneumocystis Source S. pneumoniae Antigen 03/19/17 03/19/17 03/19/17 Range/Units 04:22 04:18 01:36 WBC (4.5-11.0) 10^3/ul RBC (3.5-6.1) 10^6/uL Hgb (14.0-18.0) g/dL Hct (42.0-52.0) % MCV (80.0-105.0) fl MCH (25.0-35.0) pg MCHC (31.0-37.0) g/dl RDW (11.5-14.5) % Plt Count (120.0-450.0) 10^3/uL MPV (7.0-11.0) fl Gran % (50.0-68.0) % Lymph % (Auto) (22.0-35.0) % [place] % (Auto) (1.0-6.0) % Eos % (Auto) (1.5-5.0) % Baso % (Auto) (0.0-3.0) % Gran # (1.4-6.5) Lymph # (1.2-3.4) [place] # (0.1-0.6) Eos # (0.0-0.7) Baso # (0.0-2.0) K/mm3 PT (9.9-11.8) Seconds INR (0.93-1.08) APTT (23.7-30.8) Seconds pCO2 28 L (35-45) mm/Hg pO2 189.0 H (80-100) mm/Hg HCO3 21.3 (21-28) mmol/L ABG pH 7.49 H (7.35-7.45) ABG Total CO2 22.2 (22-28) mmol.L ABG O2 Saturation 98.8 H (95-98) % ABG O2 Content 18.0 (15-23) ML/dl ABG Base Excess -0.9 (-2.0-3.0) mmol/L ABG Hemoglobin 13.0 (11.7-17.4) g/dL ABG Carboxyhemoglobin 1.2 (0.5-1.5) % POC ABG HHb (Measured) 1.2 (0-5) % ABG Methemoglobin 1.2 (0.0-3.0) % ABG O2 Capacity 18.2 (16-24) mL/dl Hgb O2 Saturation 96.5 (95.0-98.0) % FiO2 40.0 % Sodium (132-148) mmol/L Potassium (3.6-5.0) mmol/L Chloride (98-107) mmol/L Carbon Dioxide (21-33) mmol/L Anion Gap (10-20) BUN (7-21) mg/dL Creatinine (0.8-1.5) mg/dL Est GFR ( Amer) Est GFR (Non-Af Amer) POC Glucose (mg/dL) 119 H 137 H (65-110) mg/dL Random Glucose (70-110) mg/dL Calcium (8.4-10.5) mg/dL Phosphorus (2.5-4.5) mg/dL Magnesium (1.7-2.2) mg/dL Ferritin ng/mL Total Bilirubin (0.2-1.3) mg/dL AST (17-59) U/L ALT (7-56) U/L Alkaline Phosphatase (38-126) U/L Total Protein (5.8-8.3) g/dL Albumin (3.0-4.8) g/dL Globulin gm/dL Albumin/Globulin Ratio (1.1-1.8) Pneumocystis Source S. pneumoniae Antigen 03/18/17 03/18/17 03/18/17 Range/Units 21:29 16:03 15:45 WBC (4.5-11.0) 10^3/ul RBC (3.5-6.1) 10^6/uL Hgb (14.0-18.0) g/dL Hct (42.0-52.0) % MCV (80.0-105.0) fl MCH (25.0-35.0) pg MCHC (31.0-37.0) g/dl RDW (11.5-14.5) % Plt Count (120.0-450.0) 10^3/uL MPV (7.0-11.0) fl Gran % (50.0-68.0) % Lymph % (Auto) (22.0-35.0) % [place] % (Auto) (1.0-6.0) % Eos % (Auto) (1.5-5.0) % Baso % (Auto) (0.0-3.0) % Gran # (1.4-6.5) Lymph # (1.2-3.4) [place] # (0.1-0.6) Eos # (0.0-0.7) Baso # (0.0-2.0) K/mm3 PT (9.9-11.8) Seconds INR (0.93-1.08) APTT (23.7-30.8) Seconds pCO2 (35-45) mm/Hg pO2 (80-100) mm/Hg HCO3 (21-28) mmol/L ABG pH (7.35-7.45) ABG Total CO2 (22-28) mmol.L ABG O2 Saturation (95-98) % ABG O2 Content (15-23) ML/dl ABG Base Excess (-2.0-3.0) mmol/L ABG Hemoglobin (11.7-17.4) g/dL ABG Carboxyhemoglobin (0.5-1.5) % POC ABG HHb (Measured) (0-5) % ABG Methemoglobin (0.0-3.0) % ABG O2 Capacity (16-24) mL/dl Hgb O2 Saturation (95.0-98.0) % FiO2 % Sodium 150 H (132-148) mmol/L Potassium 3.5 L (3.6-5.0) mmol/L Chloride 114 H (98-107) mmol/L Carbon Dioxide 23 (21-33) mmol/L Anion Gap 17 (10-20) BUN 46 H (7-21) mg/dL Creatinine 1.3 (0.8-1.5) mg/dL Est GFR ( Amer) > 60 Est GFR (Non-Af Amer) > 60 POC Glucose (mg/dL) 108 112 H (65-110) mg/dL Random Glucose 121 H (70-110) mg/dL Calcium 9.0 (8.4-10.5) mg/dL Phosphorus (2.5-4.5) mg/dL Magnesium (1.7-2.2) mg/dL Ferritin ng/mL Total Bilirubin (0.2-1.3) mg/dL AST (17-59) U/L ALT (7-56) U/L Alkaline Phosphatase (38-126) U/L Total Protein (5.8-8.3) g/dL Albumin (3.0-4.8) g/dL Globulin gm/dL Albumin/Globulin Ratio (1.1-1.8) Pneumocystis Source S. pneumoniae Antigen 03/18/17 03/18/17 03/16/17 Range/Units 11:41 08:00 05:30 WBC (4.5-11.0) 10^3/ul RBC (3.5-6.1) 10^6/uL Hgb (14.0-18.0) g/dL Hct (42.0-52.0) % MCV (80.0-105.0) fl MCH (25.0-35.0) pg MCHC (31.0-37.0) g/dl RDW (11.5-14.5) % Plt Count (120.0-450.0) 10^3/uL MPV (7.0-11.0) fl Gran % (50.0-68.0) % Lymph % (Auto) (22.0-35.0) % [place] % (Auto) (1.0-6.0) % Eos % (Auto) (1.5-5.0) % Baso % (Auto) (0.0-3.0) % Gran # (1.4-6.5) Lymph # (1.2-3.4) [place] # (0.1-0.6) Eos # (0.0-0.7) Baso # (0.0-2.0) K/mm3 PT (9.9-11.8) Seconds INR (0.93-1.08) APTT (23.7-30.8) Seconds pCO2 (35-45) mm/Hg pO2 (80-100) mm/Hg HCO3 (21-28) mmol/L ABG pH (7.35-7.45) ABG Total CO2 (22-28) mmol.L ABG O2 Saturation (95-98) % ABG O2 Content (15-23) ML/dl ABG Base Excess (-2.0-3.0) mmol/L ABG Hemoglobin (11.7-17.4) g/dL ABG Carboxyhemoglobin (0.5-1.5) % POC ABG HHb (Measured) (0-5) % ABG Methemoglobin (0.0-3.0) % ABG O2 Capacity (16-24) mL/dl Hgb O2 Saturation (95.0-98.0) % FiO2 % Sodium (132-148) mmol/L Potassium (3.6-5.0) mmol/L Chloride (98-107) mmol/L Carbon Dioxide (21-33) mmol/L Anion Gap (10-20) BUN (7-21) mg/dL Creatinine (0.8-1.5) mg/dL Est GFR ( Amer) Est GFR (Non-Af Amer) POC Glucose (mg/dL) 143 H (65-110) mg/dL Random Glucose (70-110) mg/dL Calcium (8.4-10.5) mg/dL Phosphorus (2.5-4.5) mg/dL Magnesium (1.7-2.2) mg/dL Ferritin 312.0 ng/mL Total Bilirubin (0.2-1.3) mg/dL AST (17-59) U/L ALT (7-56) U/L Alkaline Phosphatase (38-126) U/L Total Protein (5.8-8.3) g/dL Albumin (3.0-4.8) g/dL Globulin gm/dL Albumin/Globulin Ratio (1.1-1.8) Pneumocystis Source Serum S. pneumoniae Antigen Not detected Laboratory Results - last 24 hr 03/16/17 03/18/17 03/18/17 05:30 08:00 11:41 WBC RBC Hgb Hct MCV MCH MCHC RDW Plt Count MPV Gran % Lymph % (Auto) [place] % (Auto) Eos % (Auto) Baso % (Auto) Gran # Lymph # [place] # Eos # Baso # PT INR APTT pCO2 pO2 HCO3 ABG pH ABG Total CO2 ABG O2 Saturation ABG O2 Content ABG Base Excess ABG Hemoglobin ABG Carboxyhemoglobin POC ABG HHb (Measured) ABG Methemoglobin ABG O2 Capacity Hgb O2 Saturation FiO2 Sodium Potassium Chloride Carbon Dioxide Anion Gap BUN Creatinine Est GFR ( Amer) Est GFR (Non-Af Amer) POC Glucose (mg/dL) 143 H Random Glucose Calcium Phosphorus Magnesium Ferritin 312.0 Total Bilirubin AST ALT Alkaline Phosphatase Total Protein Albumin Globulin Albumin/Globulin Ratio Pneumocystis Source Serum S. pneumoniae Antigen Not detected 03/18/17 03/18/17 03/18/17 15:45 16:03 21:29 WBC RBC Hgb Hct MCV MCH MCHC RDW Plt Count MPV Gran % Lymph % (Auto) [place] % (Auto) Eos % (Auto) Baso % (Auto) Gran # Lymph # [place] # Eos # Baso # PT INR APTT pCO2 pO2 HCO3 ABG pH ABG Total CO2 ABG O2 Saturation ABG O2 Content ABG Base Excess ABG Hemoglobin ABG Carboxyhemoglobin POC ABG HHb (Measured) ABG Methemoglobin ABG O2 Capacity Hgb O2 Saturation FiO2 Sodium 150 H Potassium 3.5 L Chloride 114 H Carbon Dioxide 23 Anion Gap 17 BUN 46 H Creatinine 1.3 Est GFR ( Amer) > 60 Est GFR (Non-Af Amer) > 60 POC Glucose (mg/dL) 112 H 108 Random Glucose 121 H Calcium 9.0 Phosphorus Magnesium Ferritin Total Bilirubin AST ALT Alkaline Phosphatase Total Protein Albumin Globulin Albumin/Globulin Ratio Pneumocystis Source S. pneumoniae Antigen 03/19/17 03/19/17 03/19/17 01:36 04:18 04:22 WBC RBC Hgb Hct MCV MCH MCHC RDW Plt Count MPV Gran % Lymph % (Auto) [place] % (Auto) Eos % (Auto) Baso % (Auto) Gran # Lymph # [place] # Eos # Baso # PT INR APTT pCO2 28 L pO2 189.0 H HCO3 21.3 ABG pH 7.49 H ABG Total CO2 22.2 ABG O2 Saturation 98.8 H ABG O2 Content 18.0 ABG Base Excess -0.9 ABG Hemoglobin 13.0 ABG Carboxyhemoglobin 1.2 POC ABG HHb (Measured) 1.2 ABG Methemoglobin 1.2 ABG O2 Capacity 18.2 Hgb O2 Saturation 96.5 FiO2 40.0 Sodium Potassium Chloride Carbon Dioxide Anion Gap BUN Creatinine Est GFR ( Amer) Est GFR (Non-Af Amer) POC Glucose (mg/dL) 137 H 119 H Random Glucose Calcium Phosphorus Magnesium Ferritin Total Bilirubin AST ALT Alkaline Phosphatase Total Protein Albumin Globulin Albumin/Globulin Ratio Pneumocystis Source S. pneumoniae Antigen 03/19/17 03/19/17 03/19/17 05:30 05:30 05:30 WBC 14.5 H RBC 3.39 L Hgb 9.9 L Hct 29.5 L MCV 87.0 MCH 29.2 MCHC 33.6 RDW 14.2 Plt Count 201 MPV 9.9 Gran % 66.0 Lymph % (Auto) 23.8 [place] % (Auto) 8.5 H Eos % (Auto) 1.5 Baso % (Auto) 0.2 Gran # 9.57 H Lymph # 3.5 H [place] # 1.2 H Eos # 0.2 Baso # 0.03 PT 12.3 H INR 1.14 H APTT 24.2 pCO2 pO2 HCO3 ABG pH ABG Total CO2 ABG O2 Saturation ABG O2 Content ABG Base Excess ABG Hemoglobin ABG Carboxyhemoglobin POC ABG HHb (Measured) ABG Methemoglobin ABG O2 Capacity Hgb O2 Saturation FiO2 Sodium 149 H Potassium 3.8 Chloride 113 H Carbon Dioxide 25 Anion Gap 15 BUN 40 H Creatinine 1.0 Est GFR ( Amer) > 60 Est GFR (Non-Af Amer) > 60 POC Glucose (mg/dL) Random Glucose 101 Calcium 9.0 Phosphorus Magnesium Ferritin Total Bilirubin 1.5 H AST 53 ALT 85 H Alkaline Phosphatase 102 Total Protein 7.5 Albumin 3.8 Globulin 3.7 Albumin/Globulin Ratio 1.0 L Pneumocystis Source S. pneumoniae Antigen 03/19/17 03/19/17 03/19/17 07:45 08:02 11:28 WBC RBC Hgb Hct MCV MCH MCHC RDW Plt Count MPV Gran % Lymph % (Auto) [place] % (Auto) Eos % (Auto) Baso % (Auto) Gran # Lymph # [place] # Eos # Baso # PT INR APTT pCO2 pO2 HCO3 ABG pH ABG Total CO2 ABG O2 Saturation ABG O2 Content ABG Base Excess ABG Hemoglobin ABG Carboxyhemoglobin POC ABG HHb (Measured) ABG Methemoglobin ABG O2 Capacity Hgb O2 Saturation FiO2 Sodium Potassium Chloride Carbon Dioxide Anion Gap BUN Creatinine Est GFR ( Amer) Est GFR (Non-Af Amer) POC Glucose (mg/dL) 125 H 156 H Random Glucose Calcium Phosphorus 5.3 H Magnesium 2.0 Ferritin Total Bilirubin AST ALT Alkaline Phosphatase Total Protein Albumin Globulin Albumin/Globulin Ratio Pneumocystis Source S. pneumoniae Antigen Critical Care Progress Note - Nutrition Nutrition: Nutrition Category Date Time Status NPO Diet [DIET] Diets 03/14/17 Breakfast Ordered Assessment/Plan - Assessment and Plan (Free Text) Plan: Patient seen and examined, with resident, agree with note, with following additions/exceptions: 36yo male with drug overdose, with multiple substances (+BZDs, barbiturate, Opiates), s/p ROSC after cardiac arrest x 3, unknown initial downtime at home. Cardiac Arrest x 3, s/p ROSC Polysubstance Abuse Drug Over dose s/p NAC ARDS/Hypoxemic Resp failure, RESOLVED PNA/Pneumonitis Seizures - currently afebrile, HD stable, comfortable, off paralytics - finished spectrum abx - unknown down time, evidence of anoxic brain injury on MRI - EEG demonstrated diffuse slowing c/w cerebral dysfunction - overall prognosis remains extremely poor Recommend: - cont with full ventilatory support, patient failed CPAP trial today - DC abx, finished total of 8 day course of broad spectrum abx - Decrease steroids to SoluCortef 50mg Q24hr IV - follow up neurology - Sophie Funk - monitor HH - check FOBT - free water 30cc q6hr via NGT - replete K, follow up repeat BMP - DVT ppx - GI ppx - patient awaiting PEG, Trach, and placement in [place]
[2017-03-19 06:38] LABS: BASO # 0.03 K/mm3 (0.0-2.0); BASO % 0.2 % (0.0-3.0); EOS # 0.2 (0.0-0.7); EOS % 1.5 % (1.5-5.0); GRAN # 9.57 (1.4-6.5); HEMATOCRIT 29.5 % (42.0-52.0); LYMPH # 3.5 (1.2-3.4); LYMPH % 23.8 % (22.0-35.0); MEAN CORPUSCULAR HEMOGLOBIN 29.2 pg (25.0-35.0); MEAN CORPUSCULAR HGB CONC 33.6 g/dl (31.0-37.0); MEAN PLATELET VOLUME 9.9 fl (7.0-11.0); MONO # 1.2 (0.1-0.6); MONO % 8.5 % (1.0-6.0); RED CELL DISTRIBUTION WIDTH 14.2 % (11.5-14.5); WHITE BLOOD COUNT 14.5 10^3/ul (4.5-11.0)
[2017-03-19 06:50] LABS: INR 1.14 (0.93-1.08); PARTIAL THROMBOPLASTIN TIME 24.2 Seconds (23.7-30.8)
[2017-03-19 06:55] LABS: ALKALINE PHOSPHATASE 102 U/L (38-126); ALT/SGPT 85 U/L (7-56); AST/SGOT 53 U/L (17-59); BILIRUBIN,TOTAL 1.5 mg/dL (0.2-1.3); BLOOD UREA NITROGEN 40 mg/dL (7-21); CARBON DIOXIDE 25 mmol/L (21-33); CHLORIDE 113 mmol/L (98-107); GFR AFRICAN-AMERICAN > 60; GLUCOSE,RANDOM 101 mg/dL (70-110); POTASSIUM 3.8 mmol/L (3.6-5.0); SODIUM 149 mmol/L (132-148); TOTAL PROTEIN 7.5 g/dL (5.8-8.3)
--- NOTE | 2017-03-19 08:20 | CP.PCM.PN ---
Subjective - Date & Time of Evaluation Date of Evaluation: 03/19/17 Time of Evaluation: 07:10 - Subjective Subjective: General Surgery Note for Dr. Reyes Patient seen and examined at bedside. No acute event overnight. Patient intubated and sedated on vent support. He is on FiO2 40% with O2 saturation of 100%. Doesn't response to verbal commands. ROS unobtainable. Objective - Vital Signs/Intake and Output Vital Signs (last 24 hours): Temp Pulse Resp BP Pulse Ox 99.5 F 60 29 H 127/64 100 03/19/17 04:00 03/19/17 07:20 03/19/17 04:40 03/19/17 07:00 03/19/17 07:20 Intake and Output: 03/19/17 03/19/17 06:59 18:59 Intake Total 2651 Output Total 5000 Balance -2349 - Medications Medications: Current Medications Albuterol/Ipratropium (Duoneb 3 Mg/0.5 Mg (3 Ml) Ud) 3 ml IH Q2H PRN PRN Reason: Shortness of Breath Last Admin: 03/13/17 15:45 Dose: 3 ml Albuterol/Ipratropium (Duoneb 3 Mg/0.5 Mg (3 Ml) Ud) 3 ml IH [id number] [facility] Last Admin: 03/19/17 07:43 Dose: 3 ml Chlorhexidine Gluconate (Peridex) 15 ml PO BID [facility] Last Admin: 03/18/17 17:46 Dose: 15 ml Hydrocortisone Sodium Succinate (Solu-Cortef) 50 mg IVP Q12 [facility] Last Admin: 03/18/17 21:10 Dose: 50 mg NOREPINEPHRINE BIT/0.9 % NACL (Levophed 4 Mg/ 250 Ml Ns Premixed) 4 mg in 250 mls @ 22.5 mls/hr IV .Q11H7M PRN; Protocol; 6 MCG/MIN PRN Reason: TITRATE PER MD ORDER Last Titration: 03/12/17 19:00 Dose: 0 mcg/min, 0 mls/hr Epinephrine HCl 1 mg/ Sodium (Chloride) 51 mls @ 3.06 mls/hr IV .[id number] PRN; Protocol; 1 MCG/MIN PRN Reason: TITRATE PER MD ORDER Last Titration: 03/12/17 19:00 Dose: Infused Propofol (Diprivan) 1,000 mg in 100 mls @ 3.674 mls/hr IV .Q24H PRN; Protocol; 5 MCG/KG/MIN PRN Reason: TITRATE PER MD ORDER Last Admin: 03/19/17 05:31 Dose: 40 mcg/kg/min, 29.393 mls/hr Cisatracurium Besylate 100 mg/ (Sodium Chloride) 260 mls @ 1.91 mls/hr IV .Q24H PRN; Protocol; 0.1 MCG/KG/MIN PRN Reason: TITRATE PER MD ORDER Last Titration: 03/16/17 17:30 Dose: 0 mcg/kg/min, 0 mls/hr Levetiracetam 1,000 mg/ Sodium (Chloride) 110 mls @ 460 mls/hr IV Q12 [facility] Last Admin: 03/18/17 21:42 Dose: 460 mls/hr Levofloxacin/Dextrose (Levaquin 250mg) 250 mg in 50 mls @ 50 mls/hr IVPB DAILY [facility] Stop: 03/22/17 11:46 Last Admin: 03/18/17 09:35 Dose: 50 mls/hr Cefepime HCl (Maxipime 1gm) 1 gm in 100 mls @ 100 mls/hr IVPB Q12H [facility] PRN Reason: Protocol Stop: 03/23/17 14:01 Last Admin: 03/19/17 02:27 Dose: 100 mls/hr Fentanyl Citrate (Fentanyl Citrate/Sodium Chloride 1 Mg/100 Ml) 1,000 mcg in 100 mls @ 15 mls/hr IV .Q6H40M PRN; Protocol; 150 MCG/HR PRN Reason: TITRATE PER MD ORDER Last Titration: 03/17/17 06:36 Dose: 0 mcg/hr, 0 mls/hr Dexmedetomidine HCl (Precedex 4 Mcg/Ml (100 Ml)) 400 mcg in 100 mls @ 5.67 mls/ hr IV .[id number] PRN; Protocol; 0.2 MCG/KG/HR PRN Reason: Sedation Last Titration: 03/19/17 05:43 Dose: 0.5 mcg/kg/hr, 14.175 mls/hr Potassium Chloride 40 meq/ (Sodium Chloride) 1,020 mls @ 100 mls/hr IV .[id number] [facility] Last Admin: 03/18/17 23:22 Dose: 100 mls/hr Phenytoin 100 mg/ Sodium (Chloride) 52 mls @ 104 mls/hr IVPB TID [facility] Last Admin: 03/18/17 18:48 Dose: 104 mls/hr Dextrose (Dextrose 5% In Water 1000 Ml) 1,000 mls @ 150 mls/hr IV .Q6H40M [facility] Last Admin: 03/19/17 02:44 Dose: 150 mls/hr Pantoprazole Sodium (Protonix Inj) 40 mg IVP DAILY [facility] Last Admin: 03/18/17 09:48 Dose: 40 mg - Labs Labs: 03/19/17 05:30 03/19/17 05:30 PT 12.3 Seconds (9.9-11.8) H 03/19/17 05:30 INR 1.14 (0.93-1.08) H 03/19/17 05:30 APTT 24.2 Seconds (23.7-30.8) 03/19/17 05:30 - Constitutional Appears: Unkempt, Chronically Ill - Head Exam Head Exam: NORMOCEPHALIC - ENT Exam ENT Exam: Mucous Membranes Moist Additional comments: ET tube in place - Respiratory Exam Additional comments: intubated and on vent support - Cardiovascular Exam Cardiovascular Exam: REGULAR RHYTHM - GI/Abdominal Exam GI & Abdominal Exam: Soft. absent: Distended, Tenderness - Extremities Exam Additional comments: R femoral TLC in place - Neurological Exam Neurological Exam: Altered - Psychiatric Exam Psychiatric exam: Flat Affect - Skin Skin Exam: Dry, Intact, Warm Assessment and Plan - Assessment and Plan (Free Text) Plan: 36 M s/p Cardiac arrest likely secondary to substance abuse; in persistent vegetative state secondary to anoxic brain injury. Surgery was consulted for tracheostomy and gastrostomy tube placement -Trach and gastrostomy tube scheduled for Wednesday -Patient needs to be medically optimized before procedure -Management as per ICU -DW Dr. Eric Ferreira PGY1
[2017-03-19 08:26] LABS: PHOSPHOROUS 5.3 mg/dL (2.5-4.5)
[2017-03-19] MEDS: Potassium Chloride 40 MEQ in Sodium Chloride 0.45% 1,000 ML IV SCH ×2 (09:43→21:12)
[2017-03-19] MEDS: levETIRAcetam 1,000 MG in Sodium Chloride 0.9% 100 ML IV SCH ×2 (09:46→21:17)
[2017-03-19] MEDS: levoFLOXacin 250 mg in D5W 250 MG/50 ML BAG IVPB SCH (09:49)
--- NOTE | 2017-03-19 10:31 | RAD ---
HISTORY: Intubated, f/u COMPARISON: 03/18/2017 FINDINGS: LUNGS: No active pulmonary disease. PLEURA: No significant pleural effusion identified, no pneumothorax apparent. CARDIOVASCULAR: Normal. OSSEOUS STRUCTURES: No significant abnormalities. VISUALIZED UPPER ABDOMEN: Normal. OTHER FINDINGS: The endotracheal and nasogastric tube are unchanged in position IMPRESSION: No active disease.
[2017-03-19] MEDS: Chlorhexidine 0.12% Oral Sol 480 ml Bot PO SCH ×2 (11:11→17:59)
--- NOTE | 2017-03-19 12:48 | CP.PCM.PN ---
<Nathaniel Meek - Last Filed: 03/19/17 12:38> Subjective - Date & Time of Evaluation Date of Evaluation: 03/19/17 Time of Evaluation: 12:38 - Subjective Subjective: Pt seen and examined at bedside. Family at bedside. Pt remains intubated and sedated. No acute events overnight. Objective - Vital Signs/Intake and Output Vital Signs (last 24 hours): Temp Pulse Resp BP Pulse Ox 99.5 F 46 L 29 H 140/73 100 03/19/17 04:00 03/19/17 12:20 03/19/17 04:40 03/19/17 12:00 03/19/17 12:20 Intake and Output: 03/19/17 03/19/17 06:59 18:59 Intake Total 2651 0 Output Total 5000 Balance -2349 0 - Medications Medications: Current Medications Albuterol/Ipratropium (Duoneb 3 Mg/0.5 Mg (3 Ml) Ud) 3 ml IH Q2H PRN PRN Reason: Shortness of Breath Last Admin: 03/13/17 15:45 Dose: 3 ml Albuterol/Ipratropium (Duoneb 3 Mg/0.5 Mg (3 Ml) Ud) 3 ml IH [id number] [facility] Last Admin: 03/19/17 07:43 Dose: 3 ml Chlorhexidine Gluconate (Peridex) 15 ml PO BID [facility] Last Admin: 03/19/17 11:11 Dose: 15 ml Propofol (Diprivan) 1,000 mg in 100 mls @ 3.674 mls/hr IV .Q24H PRN; Protocol; 5 MCG/KG/MIN PRN Reason: TITRATE PER MD ORDER Last Titration: 03/19/17 11:12 Dose: 50 mcg/kg/min, 36.741 mls/hr Levetiracetam 1,000 mg/ Sodium (Chloride) 110 mls @ 460 mls/hr IV Q12 [facility] Last Admin: 03/19/17 09:46 Dose: 460 mls/hr Dexmedetomidine HCl (Precedex 4 Mcg/Ml (100 Ml)) 400 mcg in 100 mls @ 5.67 mls/ hr IV .[id number] PRN; Protocol; 0.2 MCG/KG/HR PRN Reason: Sedation Last Titration: 03/19/17 11:13 Dose: 1 mcg/kg/hr, 28.35 mls/hr Potassium Chloride 40 meq/ (Sodium Chloride) 1,020 mls @ 100 mls/hr IV .[id number] [facility] [place] Last Admin: 03/19/17 09:43 Dose: 100 mls/hr Phenytoin 100 mg/ Sodium (Chloride) 52 mls @ 104 mls/hr IVPB TID [facility] Last Admin: 03/19/17 09:44 Dose: 104 mls/hr Dextrose (Dextrose 5% In Water 1000 Ml) 1,000 mls @ 150 mls/hr IV .Q6H40M [facility] Last Admin: 03/19/17 09:52 Dose: 150 mls/hr Pantoprazole Sodium (Protonix Inj) 40 mg IVP DAILY [facility] Last Admin: 03/19/17 09:51 Dose: 40 mg - Labs Labs: 03/19/17 05:30 03/19/17 05:30 PT 12.3 Seconds (9.9-11.8) H 03/19/17 05:30 INR 1.14 (0.93-1.08) H 03/19/17 05:30 APTT 24.2 Seconds (23.7-30.8) 03/19/17 05:30 - Constitutional Appears: Toxic, No Acute Distress - Head Exam Head Exam: ATRAUMATIC, NORMAL INSPECTION, NORMOCEPHALIC - ENT Exam ENT Exam: Mucous Membranes Moist - Respiratory Exam Respiratory Exam: Decreased Breath Sounds. absent: Rales, Rhonchi, Wheezes - Cardiovascular Exam Cardiovascular Exam: RRR, +S1, +S2 - GI/Abdominal Exam GI & Abdominal Exam: Soft, Normal Bowel Sounds. absent: Tenderness - Extremities Exam Extremities Exam: Normal Inspection. absent: Calf Tenderness, Pedal Edema - Neurological Exam Additional comments: Sedated - Skin Skin Exam: Intact, Normal Color, Warm Assessment and Plan - Assessment and Plan (Free Text) Plan: 36 y/o male with PMH of substance abuse presents with drug overdose, with multiple substances (+BZDs, barbiturate, Opiates), s/p ROSC after cardiac arrest x 3, unknown initial downtime at home. Tracheostomy and G-tube placement not placed yesterday by surgery due to hypernatremia. Pt will be rescheduled for Wednesday. Pt also started on d5W and free water via the NGT. Antibiotics will also be stopped at tihs time. Prognosis discussed with family, who are still hopeful patient will have a meaningful recovery. Neuro: -Patient intubated and unresponsive on sedative medication -Continue to Maintain temp ~92-94F -Neurochecks q2h -Urine toxicology positive for opiates, barbiturates and benzos -CT Head (-). Seen by Neurology. -Repeat EEG demonstrates anoxic brain injury and poor prognosis. -Brain MRI showed anoxic injury in thalamic region bilaterally. -Will continue to attempt weaning trials -Continue Seizure precautions -Neuro status hard to determine due to sedation. Will reassess once sedation is weaned off. Cardio: -Continue propofol, Cisatracurium, and [place]ozalam with goal MAP > 70 -EKG reviewed; atrial fibrillation with slow ventricular response (51bpm), nonspecific intraventricular block -F/U with Cardiology recs. Pulm: -Failed CPAP trial, will remain on full ventilatory support -ABG and CXR reviewed -patient pO2 stable. Patient's FiO2 remains at 40%. Will monitor closely. -Continue serial CXR and ABG. GI: -NPO -NGT -Protonix Renal: -Hypernatremic, will continue on D5W and free water via NGT -Will continue to monitor and treat electrolyte abnormalities as indicated -Monitor I's and O's Endo: -Fingersticks q2h -Maintain euglycemia between 140-180's -Stress dose steroids, tapering ID: -Afebrile, leukocytosis improving -Cultures negative at this time -Full course of abx given, will D/C at this time GI/DVT Prophylaxis -Protonix/SCD's [facility] PGY-2 <Raheel Espitia - Last Filed: 03/19/17 12:57> Objective - Vital Signs/Intake and Output Vital Signs (last 24 hours): Temp Pulse Resp BP Pulse Ox 99.5 F 46 L 29 H 140/73 100 03/19/17 04:00 03/19/17 12:20 03/19/17 04:40 03/19/17 12:00 03/19/17 12:20 Intake and Output: 03/19/17 03/19/17 06:59 18:59 Intake Total 2651 0 Output Total 5000 Balance -2349 0 - Medications Medications: Current Medications Albuterol/Ipratropium (Duoneb 3 Mg/0.5 Mg (3 Ml) Ud) 3 ml IH Q2H PRN PRN Reason: Shortness of Breath Last Admin: 03/13/17 15:45 Dose: 3 ml Albuterol/Ipratropium (Duoneb 3 Mg/0.5 Mg (3 Ml) Ud) 3 ml IH [id number] [facility] [place] Last Admin: 03/19/17 07:43 Dose: 3 ml Chlorhexidine Gluconate (Peridex) 15 ml PO BID [facility] Last Admin: 03/19/17 11:11 Dose: 15 ml Propofol (Diprivan) 1,000 mg in 100 mls @ 3.674 mls/hr IV .Q24H PRN; Protocol; 5 MCG/KG/MIN PRN Reason: TITRATE PER MD ORDER Last Titration: 03/19/17 11:12 Dose: 50 mcg/kg/min, 36.741 mls/hr Levetiracetam 1,000 mg/ Sodium (Chloride) 110 mls @ 460 mls/hr IV Q12 [facility] Last Admin: 03/19/17 09:46 Dose: 460 mls/hr Dexmedetomidine HCl (Precedex 4 Mcg/Ml (100 Ml)) 400 mcg in 100 mls @ 5.67 mls/ hr IV .[id number] PRN; Protocol; 0.2 MCG/KG/HR PRN Reason: Sedation Last Titration: 03/19/17 11:13 Dose: 1 mcg/kg/hr, 28.35 mls/hr Potassium Chloride 40 meq/ (Sodium Chloride) 1,020 mls @ 100 mls/hr IV .[id number] [facility] Last Admin: 03/19/17 09:43 Dose: 100 mls/hr Phenytoin 100 mg/ Sodium (Chloride) 52 mls @ 104 mls/hr IVPB TID [facility] Last Admin: 03/19/17 09:44 Dose: 104 mls/hr Dextrose (Dextrose 5% In Water 1000 Ml) 1,000 mls @ 150 mls/hr IV .Q6H40M [facility] Last Admin: 03/19/17 09:52 Dose: 150 mls/hr Pantoprazole Sodium (Protonix Inj) 40 mg IVP DAILY [facility] Last Admin: 03/19/17 09:51 Dose: 40 mg - Labs Labs: 03/19/17 05:30 03/19/17 05:30 PT 12.3 Seconds (9.9-11.8) H 03/19/17 05:30 INR 1.14 (0.93-1.08) H 03/19/17 05:30 APTT 24.2 Seconds (23.7-30.8) 03/19/17 05:30 Attending/Attestation - Attestation I have personally seen and examined this patient.: Yes I have fully participated in the care of the patient.: Yes I have reviewed all pertinent clinical information, including history, physical exam and plan: Yes Notes (Text): 03/19/17 12:55 36 year old male with past medical history of depression, anxiety, hypertension , and substance abuse who presented with cardiac arrest secondary to suspected drug overdose. Urine drug screen was positive for opiates, barbituates and benzodiazepines. He is currently intubated. Continue with vent management and weaning trials as per vp product management. MRI brain showed signs of anoxic injury. EEG was reviewed as well. Neurology is following the patient. He was also initially found to have renal insufficiency and elevated LFTs which have improved. He has completed course of antibiotics and his stress dose steroids were tapered. Leukocytosis is also improved; likely secondary to steroids. He is also on stress dose steroids and iv antibiotics. Plan is for trach/peg on Wednesday. Raheel Espitia MD Hospitalist.
--- NOTE | 2017-03-19 20:27 | CP.PCM.PN ---
Subjective - Date & Time of Evaluation Date of Evaluation: 03/19/17 Time of Evaluation: 11:00 - Subjective Subjective: Patient remains in vegetative state; having seizures intermittently; Objective - Vital Signs/Intake and Output Vital Signs (last 24 hours): Temp Pulse Resp BP Pulse Ox 97.6 F 68 19 134/65 100 03/19/17 20:00 03/19/17 20:20 03/19/17 20:20 03/19/17 20:00 03/19/17 20:20 Intake and Output: 03/19/17 03/20/17 18:59 06:59 Intake Total 250 Output Total 2100 Balance 250 -2100 - Medications Medications: Current Medications Albuterol/Ipratropium (Duoneb 3 Mg/0.5 Mg (3 Ml) Ud) 3 ml IH Q2H PRN PRN Reason: Shortness of Breath Last Admin: 03/13/17 15:45 Dose: 3 ml Albuterol/Ipratropium (Duoneb 3 Mg/0.5 Mg (3 Ml) Ud) 3 ml IH [id number] [facility] Last Admin: 03/19/17 13:47 Dose: 3 ml Chlorhexidine Gluconate (Peridex) 15 ml PO BID [facility] Last Admin: 03/19/17 17:59 Dose: 15 ml Propofol (Diprivan) 1,000 mg in 100 mls @ 3.674 mls/hr IV .Q24H PRN; Protocol; 5 MCG/KG/MIN PRN Reason: TITRATE PER MD ORDER Last Admin: 03/19/17 19:07 Dose: 50 mcg/kg/min, 36.741 mls/hr Levetiracetam 1,000 mg/ Sodium (Chloride) 110 mls @ 460 mls/hr IV Q12 [facility] Last Admin: 03/19/17 09:46 Dose: 460 mls/hr Potassium Chloride 40 meq/ (Sodium Chloride) 1,020 mls @ 100 mls/hr IV .[id number] [facility] Last Admin: 03/19/17 09:43 Dose: 100 mls/hr Phenytoin 100 mg/ Sodium (Chloride) 52 mls @ 104 mls/hr IVPB TID [facility] Last Admin: 03/19/17 17:57 Dose: 104 mls/hr Dextrose (Dextrose 5% In Water 1000 Ml) 1,000 mls @ 150 mls/hr IV .Q6H40M [facility] Last Admin: 03/19/17 09:52 Dose: 150 mls/hr Dexmedetomidine HCl (Precedex 4 Mcg/Ml (100 Ml)) 400 mcg in 100 mls @ 5.647 mls /hr IV .[id number] PRN; Protocol; 0.2 MCG/KG/HR PRN Reason: Sedation Last Admin: 03/19/17 18:10 Dose: 0.2 mcg/kg/hr, 5.647 mls/hr Pantoprazole Sodium (Protonix Inj) 40 mg IVP DAILY [facility] Last Admin: 03/19/17 09:51 Dose: 40 mg - Labs Labs: 03/19/17 05:30 03/19/17 05:30 PT 12.3 Seconds (9.9-11.8) H 03/19/17 05:30 INR 1.14 (0.93-1.08) H 03/19/17 05:30 APTT 24.2 Seconds (23.7-30.8) 03/19/17 05:30 - Constitutional Appears: No Acute Distress - Eye Exam Eye Exam: absent: Scleral icterus - ENT Exam ENT Exam: Mucous Membranes Moist - Respiratory Exam Respiratory Exam: Clear to Ausculation Bilateral. absent: Rales, Rhonchi - Cardiovascular Exam Cardiovascular Exam: RRR, +S1, +S2 - GI/Abdominal Exam GI & Abdominal Exam: Soft. absent: Distended - Extremities Exam Additional comments: no leg edema; - Neurological Exam Neurological Exam: Alert, Awake - Skin Skin Exam: Warm. absent: Cyanosis Assessment and Plan (1) Acute renal failure Assessment & Plan: ATN resolving; still polyuric; continuing IVF w/ 1/2NS at 100 cc/hr to avoid volume depletion and D5W at 150 cc/hr to correct hypernatremia; Status: Acute (2) ARDS (adult respiratory distress syndrome) Assessment & Plan: FIO2 requirement much improved as is CXR; will continue aggressive IVF as above; Status: Acute (3) Polyuria Assessment & Plan: In the setting of ATN recovery; IVF as above; need to ensure volume depletion doesn't occur; Status: Acute (4) Electrolyte imbalance Assessment & Plan: Hypernatremia correcting; continue to monitor K and replenish accordingly; continuing 40 meq/L KCl in 1/2NS; Status: Acute
[2017-03-20] MEDS: Dexmedetomidine HCl 4mcg/ml 400 MCG/100 ML BOTTLE IV PRN ×2 (00:02→14:23)
[2017-03-20] MEDS: Propofol 10 mg/ml 1,000 MG/100 ML VIAL IV PRN ×10 (00:02→21:34)
--- NOTE | 2017-03-20 01:05 | CP.PCM.PN ---
Subjective - Date & Time of Evaluation Date of Evaluation: 03/20/17 Time of Evaluation: 01:03 - Subjective Subjective: as per nurse while changing pt pt accidently got extubated. Objective - Vital Signs/Intake and Output Vital Signs (last 24 hours): Temp Pulse Resp BP Pulse Ox 97.6 F 65 19 143/73 100 03/19/17 20:00 03/19/17 22:40 03/19/17 20:20 03/19/17 22:00 03/19/17 22:40 Intake and Output: 03/19/17 03/20/17 18:59 06:59 Intake Total 250 300 Output Total 2100 Balance 250 -1800 - Medications Medications: Current Medications Albuterol/Ipratropium (Duoneb 3 Mg/0.5 Mg (3 Ml) Ud) 3 ml IH Q2H PRN PRN Reason: Shortness of Breath Last Admin: 03/13/17 15:45 Dose: 3 ml Albuterol/Ipratropium (Duoneb 3 Mg/0.5 Mg (3 Ml) Ud) 3 ml IH [id number] [facility] Last Admin: 03/19/17 19:40 Dose: 3 ml Chlorhexidine Gluconate (Peridex) 15 ml PO BID [facility] Last Admin: 03/19/17 17:59 Dose: 15 ml Propofol (Diprivan) 1,000 mg in 100 mls @ 3.674 mls/hr IV .Q24H PRN; Protocol; 5 MCG/KG/MIN PRN Reason: TITRATE PER MD ORDER Last Admin: 03/20/17 00:02 Dose: 50 mcg/kg/min, 36.741 mls/hr Levetiracetam 1,000 mg/ Sodium (Chloride) 110 mls @ 460 mls/hr IV Q12 [facility] Last Admin: 03/19/17 21:17 Dose: 460 mls/hr Potassium Chloride 40 meq/ (Sodium Chloride) 1,020 mls @ 100 mls/hr IV .[id number] [facility] Last Admin: 03/19/17 21:12 Dose: 100 mls/hr Phenytoin 100 mg/ Sodium (Chloride) 52 mls @ 104 mls/hr IVPB TID [facility] Last Admin: 03/19/17 17:57 Dose: 104 mls/hr Dextrose (Dextrose 5% In Water 1000 Ml) 1,000 mls @ 150 mls/hr IV .Q6H40M [facility] Last Admin: 03/19/17 21:18 Dose: 150 mls/hr Dexmedetomidine HCl (Precedex 4 Mcg/Ml (100 Ml)) 400 mcg in 100 mls @ 5.647 mls /hr IV .[id number] PRN; Protocol; 0.2 MCG/KG/HR PRN Reason: Sedation Last Admin: 03/20/17 00:02 Dose: 0.2 mcg/kg/hr, 5.647 mls/hr Pantoprazole Sodium (Protonix Inj) 40 mg IVP DAILY [facility] Last Admin: 03/19/17 09:51 Dose: 40 mg - Labs Labs: 03/19/17 05:30 03/19/17 05:30 PT 12.3 Seconds (9.9-11.8) H 03/19/17 05:30 INR 1.14 (0.93-1.08) H 03/19/17 05:30 APTT 24.2 Seconds (23.7-30.8) 03/19/17 05:30 Assessment and Plan - Assessment and Plan (Free Text) Assessment: reintubated the pt with 7.5 ET tube chest x-ray done.
[2017-03-20] MEDS: Albuterol-Ipratrop 3 mg / 0.5 (3 ml) UD IH SCH ×4 (02:06→22:06)
[2017-03-20 06:16] LABS: ALKALINE PHOSPHATASE 106 U/L (38-126); ALT/SGPT 73 U/L (7-56); AST/SGOT 61 U/L (17-59); BILIRUBIN,TOTAL 1.3 mg/dL (0.2-1.3); BLOOD UREA NITROGEN 24 mg/dL (7-21); CALCIUM 8.9 mg/dL (8.4-10.5); CARBON DIOXIDE 22 mmol/L (21-33); CHLORIDE 108 mmol/L (98-107); GFR AFRICAN-AMERICAN > 60; GLUCOSE,RANDOM 140 mg/dL (70-110); MAGNESIUM 1.5 mg/dL (1.7-2.2); PHOSPHOROUS 3.2 mg/dL (2.5-4.5); SODIUM 142 mmol/L (132-148)
[2017-03-20 06:17] LABS: BASO # 0.04 K/mm3 (0.0-2.0); BASO % 0.3 % (0.0-3.0); EOS # 0.5 (0.0-0.7); EOS % 3.5 % (1.5-5.0); GRAN # 11.27 (1.4-6.5); HEMATOCRIT 29.5 % (42.0-52.0); LYMPH # 2.3 (1.2-3.4); MEAN CELL VOLUME 85.8 fl (80.0-105.0); MEAN CORPUSCULAR HEMOGLOBIN 28.8 pg (25.0-35.0); MEAN CORPUSCULAR HGB CONC 33.6 g/dl (31.0-37.0); MEAN PLATELET VOLUME 9.6 fl (7.0-11.0); MONO # 1.1 (0.1-0.6); MONO % 7.2 % (1.0-6.0); RED CELL DISTRIBUTION WIDTH 13.9 % (11.5-14.5); WHITE BLOOD COUNT 15.2 10^3/ul (4.5-11.0)
[2017-03-20 06:20] LABS: INR 1.11 (0.93-1.08)
--- NOTE | 2017-03-20 07:55 | CP.PCM.PN ---
Subjective - Date & Time of Evaluation Date of Evaluation: 03/20/17 Time of Evaluation: 07:52 - Subjective Subjective: Surgery Pt s&e. Per note, pt was accidently extubated. Reintubated. Pt response to some pain stimuli. Objective - Vital Signs/Intake and Output Vital Signs (last 24 hours): Temp Pulse Resp BP Pulse Ox 100.5 F H 69 26 H 159/80 H 100 03/20/17 04:00 03/20/17 07:00 03/20/17 07:45 03/20/17 07:00 03/20/17 07:45 Intake and Output: 03/20/17 03/20/17 06:59 18:59 Intake Total 4279 Output Total 5450 Balance -1171 - Medications Medications: Current Medications Albuterol/Ipratropium (Duoneb 3 Mg/0.5 Mg (3 Ml) Ud) 3 ml IH Q2H PRN PRN Reason: Shortness of Breath Last Admin: 03/13/17 15:45 Dose: 3 ml Albuterol/Ipratropium (Duoneb 3 Mg/0.5 Mg (3 Ml) Ud) 3 ml IH [id number] [facility] Last Admin: 03/20/17 07:42 Dose: 3 ml Chlorhexidine Gluconate (Peridex) 15 ml PO BID [facility] Last Admin: 03/19/17 17:59 Dose: 15 ml Propofol (Diprivan) 1,000 mg in 100 mls @ 3.674 mls/hr IV .Q24H PRN; Protocol; 5 MCG/KG/MIN PRN Reason: TITRATE PER MD ORDER Last Admin: 03/20/17 06:34 Dose: 50 mcg/kg/min, 36.741 mls/hr Levetiracetam 1,000 mg/ Sodium (Chloride) 110 mls @ 460 mls/hr IV Q12 [facility] Last Admin: 03/19/17 21:17 Dose: 460 mls/hr Potassium Chloride 40 meq/ (Sodium Chloride) 1,020 mls @ 100 mls/hr IV .[id number] [facility] Last Admin: 03/19/17 21:12 Dose: 100 mls/hr Phenytoin 100 mg/ Sodium (Chloride) 52 mls @ 104 mls/hr IVPB TID [facility] Last Admin: 03/19/17 17:57 Dose: 104 mls/hr Dextrose (Dextrose 5% In Water 1000 Ml) 1,000 mls @ 150 mls/hr IV .Q6H40M [facility] Last Admin: 03/20/17 06:33 Dose: 150 mls/hr Dexmedetomidine HCl (Precedex 4 Mcg/Ml (100 Ml)) 400 mcg in 100 mls @ 5.647 mls /hr IV .[id number] PRN; Protocol; 0.2 MCG/KG/HR PRN Reason: Sedation Last Admin: 03/20/17 00:02 Dose: 0.2 mcg/kg/hr, 5.647 mls/hr Potassium Chloride (Potassium Chloride 20 Meq/100 Ml) 20 meq in 100 mls @ 50 mls/hr IVPB Q2H [facility] Stop: 03/20/17 11:14 Pantoprazole Sodium (Protonix Inj) 40 mg IVP DAILY [facility] Last Admin: 03/19/17 09:51 Dose: 40 mg - Labs Labs: 03/20/17 05:30 03/20/17 05:30 PT 12.0 Seconds (9.9-11.8) H 03/20/17 05:30 INR 1.11 (0.93-1.08) H 03/20/17 05:30 APTT 24.0 Seconds (23.7-30.8) 03/20/17 05:30 - Constitutional Appears: No Acute Distress - Head Exam Head Exam: ATRAUMATIC, NORMAL INSPECTION, NORMOCEPHALIC - ENT Exam ENT Exam: Mucous Membranes Moist, Normal Exam - Neck Exam Neck Exam: Full ROM, Normal Inspection. absent: Lymphadenopathy - Respiratory Exam Respiratory Exam: Respiratory Distress. absent: NORMAL BREATHING PATTERN Additional comments: ETT in place - Cardiovascular Exam Cardiovascular Exam: REGULAR RHYTHM, +S1, +S2. absent: Murmur - GI/Abdominal Exam GI & Abdominal Exam: Soft, Normal Bowel Sounds. absent: Distended, Firm, Guarding, Rigid, Tenderness - Extremities Exam Extremities Exam: Normal Inspection - Back Exam Back Exam: NORMAL INSPECTION - Skin Skin Exam: Dry, Intact, Normal Color, Warm Assessment and Plan - Assessment and Plan (Free Text) Assessment: 36 M s/p Cardiac arrest likely secondary to substance abuse; in persistent vegetative state secondary to anoxic brain injury. Surgery was consulted for tracheostomy and gastrostomy tube placement -Trach and gastrostomy tube scheduled for Wednesday -Patient needs to be medically optimized before procedure -Management as per ICU -DW Dr. Reyes
--- NOTE | 2017-03-20 08:43 | RAD ---
HISTORY: Intubation placement COMPARISON: Comparison chest 03/19/2017 FINDINGS: ETT tip which in situ ETT tip of which overlies left parasagittal upper abdomen. NGT is present the tip of which lies approximately 7.2 cm above serenity. LUNGS: Minor bibasilar atelectasis PLEURA: No significant pleural effusion identified, no pneumothorax apparent. CARDIOVASCULAR: Normal. OSSEOUS STRUCTURES: No significant abnormalities. VISUALIZED UPPER ABDOMEN: Distended air-filled loop of bowel left upper quadrant of the abdomen presumably representing distended stomach OTHER FINDINGS: None. IMPRESSION: ETT and NGT as described. Mild bibasilar atelectasis
--- NOTE | 2017-03-20 08:54 | CP.CCUPN ---
<Jerman Kilgore - Last Filed: 03/20/17 10:57> CCU Subjective - Physician Review Subjective (Free Text): 03/20/17 08:21 Patient seen and examined at bedside in the ICU. Yesterday, patient had a witnessed tonic-clonic seizure, sedation briefly increased, resolved. Was found to be wearing headphones playing music, re-instructed family to stop attempting to stimulate him while under sedation. Overnight, was reported to be partially extubated while being turned. House physician was called, and ETT was replaced, placement confirmed by CXR. This AM, patient vomited through his NGT, coffee-ground emesis; NGT was set to suction and drained ~600cc of coffee- colored drainage. Stat portable abdominal X-ray was ordered, which was negative for free air under the diaphragm, NGT position in stomach confirmed. Labs were reviewed, patient was noted to have stable Hgb between yesterday and this AM, and he was noted to be normotensive without tachycardia. 80mg IVP of Protonix was ordered, his daily protonix was increased to BID, and NGT was left to suction. CCU Objective - Vital Signs / Intake & Output Vital Signs (Last 4 hours): Vital Signs Pulse Resp BP Pulse Ox 03/20/17 07:45 26 H 100 03/20/17 07:00 69 159/80 H 100 03/20/17 06:50 72 100 03/20/17 06:40 70 100 03/20/17 06:30 71 100 03/20/17 06:20 72 100 03/20/17 06:10 69 100 03/20/17 06:00 75 161/85 H 100 03/20/17 05:50 75 100 03/20/17 05:40 76 100 03/20/17 05:30 78 100 03/20/17 05:20 79 100 03/20/17 05:10 77 100 03/20/17 05:00 81 160/86 H 100 03/20/17 04:50 80 100 03/20/17 04:40 78 100 03/20/17 04:30 78 100 Intake and Output (Last 8hrs): Intake & Output 03/19/17 03/20/17 03/20/17 22:59 06:59 14:59 Intake Total 200 4179 Output Total 2100 3350 Balance -1900 829 Weight 112.945 kg Intake: IV 200 4179 Left Antecubital 1679 Left Hand 2000 Oral 0 Output: Urine 2100 3350 Urethral ([place]) 2100 3350 Other: # Bowel Movements 0 - Physical Exam Head: Positive for: Atraumatic, Normocephalic. Negative for: Ecchymosis, Abrasion, Laceration Pupils: Positive for: Other (pinpoint pupils, not reactive to direct light challenge) Extroacular Muscles: Positive for: Other (unable to assess, not moving eyes spontaneously, no avoidance of direct light challenge for PERRL assessment, intermittent fluttering of eyelids but not 2/2 to stimuli or purposeful, still attempts flickering of eyelids when help open or closed by examiner, eyes remain gazing downward) Conjunctiva: Negative for: Injected, Icteric Mouth: Positive for: Moist Mucous Membranes, Other (ETT in place with bite guard ). Negative for: Drooling Nose (External): Positive for: Atraumatic, Other (NGT in place set to suction, coffee-ground colored drainage). Negative for: Abrasion, Contusion, Laceration Neck: Positive for: Trachea Midline. Negative for: JVD, Lymphadenopathy Respiratory/Chest: Positive for: Clear to Auscultation, Good Air Exchange, Rales (mild-moderate rales in all breath [place], unchanged). Negative for: Accessory Muscle Use, Wheezes, Tachypneic Cardiovascular: Positive for: Normal S1, S2, Other (Intermittently bradycardic, as low as 44 on bedside monitor, usually between 55 and 60's; bradycardia improves when coming off Precedex). Negative for: Murmurs, Irregular Rhythm, Tachycardic Abdomen: Negative for: Distention (obese but not distended, soft on palpation, no palpable masses or pulsatile masses), Normal Bowel Sounds (diminished but present bowel sounds, unchanged from multiple prior exams), Mass/Organomegaly Upper Extremity: Positive for: Normal Inspection. Negative for: Cyanosis, Edema , Normal ROM, NORMAL PULSES (faintly palpable radials +1), Swelling, Erythema, Deformity Lower Extremity: Positive for: Normal Inspection. Negative for: Edema, NORMAL PULSES (unable to palpate bilateral dorsalis pedis or posterior tibials), Cyanosis, Swelling, Erythema, Deformity Neurological: Positive for: Other (intubated and sedated, now off paralytics for ~12 hrs). Negative for: GCS=15 (GCS 3 (E1 V1t M1)), CN II-XII Intact, Speech Normal, Motor Func Grossly Intact Skin: Positive for: Warm, Dry, Normal Color. Negative for: Rashes Psychiatric: Positive for: Other (sedated and intubated, unable to assess). Negative for: Alert, Oriented x 3, Normal Insight, Normal Concentration, Normal Affect, Normal Mood - Medications Active Medications: Active Medications Generic Name Dose Route Start Last Admin Trade Name Freq PRN Reason Stop Dose Admin Albuterol/Ipratropium 3 ml 03/13/17 15:07 03/13/17 15:45 Duoneb 3 Mg/0.5 Mg (3 Ml) Ud IH 3 ml Q2H PRN Administration Shortness of Breath Albuterol/Ipratropium 3 ml 03/13/17 20:00 03/20/17 07:42 Duoneb 3 Mg/0.5 Mg (3 Ml) Ud IH 3 ml [id number] MARICHUY Administration Chlorhexidine Gluconate 15 ml 03/13/17 10:00 03/19/17 17:59 Peridex PO 15 ml BID MARICHUY Administration Propofol 1,000 mg in 100 mls @ 3.674 mls/hr 03/12/17 07:41 03/20/17 06:34 Diprivan IV 50 mcg/kg/min .Q24H PRN 36.741 mls/hr TITRATE PER MD ORDER Administration Protocol 5 MCG/KG/MIN Levetiracetam 1,000 mg/ Sodium 110 mls @ 460 mls/hr 03/12/17 22:00 03/19/17 21:17 Chloride IV 460 mls/hr Q12 MARICHUY Administration Potassium Chloride 40 meq/ 1,020 mls @ 100 mls/hr 03/17/17 21:40 03/19/17 21: 12 Sodium Chloride IV 100 mls/hr .[id number] MARICHUY Administration Phenytoin 100 mg/ Sodium 52 mls @ 104 mls/hr 03/18/17 10:00 03/19/17 17:57 Chloride IVPB 104 mls/hr TID MARICHUY Administration Dextrose 1,000 mls @ 150 mls/hr 03/18/17 16:26 03/20/17 06:33 Dextrose 5% In Water 1000 Ml IV 150 mls/hr .[id number] MARICHUY Administration Dexmedetomidine HCl 400 mcg in 100 mls @ 5.647 mls/hr 03/19/17 17:53 00:02 Precedex 4 Mcg/Ml (100 Ml) IV 0.2 mcg/kg/hr .[id number] PRN 5.647 mls/hr Sedation Administration Protocol 0.2 MCG/KG/HR Potassium Chloride 20 meq in 100 mls @ 50 mls/hr 03/20/17 07:15 Potassium Chloride 20 Meq/100 Ml IVPB 03/20/17 11:14 Q2H MARICHUY Pantoprazole Sodium 40 mg 03/12/17 10:00 03/19/17 09:51 Protonix Inj IVP 40 mg DAILY MARICHUY Administration - Patient Studies Lab Studies: Microbiology Studies 03/16/17 22:00 Blood Culture - Preliminary Blood-Venous NO GROWTH AFTER 3 DAYS 03/16/17 21:30 Blood Culture - Preliminary Blood-Venous NO GROWTH AFTER 3 DAYS Lab Studies 03/20/17 03/20/17 03/20/17 Range/Units 05:30 05:30 05:30 WBC 15.2 H (4.5-11.0) 10^3/ul RBC 3.44 L (3.5-6.1) 10^6/uL Hgb 9.9 L (14.0-18.0) g/dL Hct 29.5 L (42.0-52.0) % MCV 85.8 (80.0-105.0) fl MCH 28.8 (25.0-35.0) pg MCHC 33.6 (31.0-37.0) g/dl RDW 13.9 (11.5-14.5) % Plt Count 200 (120.0-450.0) 10^3/uL MPV 9.6 (7.0-11.0) fl Gran % 74.0 H (50.0-68.0) % Lymph % (Auto) 15.0 L (22.0-35.0) % [place] % (Auto) 7.2 H (1.0-6.0) % Eos % (Auto) 3.5 (1.5-5.0) % Baso % (Auto) 0.3 (0.0-3.0) % Gran # 11.27 H (1.4-6.5) Lymph # 2.3 (1.2-3.4) [place] # 1.1 H (0.1-0.6) Eos # 0.5 (0.0-0.7) Baso # 0.04 (0.0-2.0) K/mm3 PT 12.0 H (9.9-11.8) Seconds INR 1.11 H (0.93-1.08) APTT 24.0 (23.7-30.8) Seconds Sodium 142 (132-148) mmol/L Potassium 3.0 L (3.6-5.0) mmol/L Chloride 108 H (98-107) mmol/L Carbon Dioxide 22 (21-33) mmol/L Anion Gap 15 (10-20) BUN 24 H (7-21) mg/dL Creatinine 0.8 (0.8-1.5) mg/dL Est GFR ( Amer) > 60 Est GFR (Non-Af Amer) > 60 POC Glucose (mg/dL) (65-110) mg/dL Random Glucose 140 H (70-110) mg/dL Calcium 8.9 (8.4-10.5) mg/dL Phosphorus 3.2 (2.5-4.5) mg/dL Magnesium 1.5 L (1.7-2.2) mg/dL Total Bilirubin 1.3 (0.2-1.3) mg/dL AST 61 H (17-59) U/L ALT 73 H (7-56) U/L Alkaline Phosphatase 106 (38-126) U/L Total Protein 7.0 (5.8-8.3) g/dL Albumin 3.5 (3.0-4.8) g/dL Globulin 3.5 gm/dL Albumin/Globulin Ratio 1.0 L (1.1-1.8) 03/20/17 03/20/17 03/19/17 Range/Units 03:49 01:06 20:34 WBC (4.5-11.0) 10^3/ul RBC (3.5-6.1) 10^6/uL Hgb (14.0-18.0) g/dL Hct (42.0-52.0) % MCV (80.0-105.0) fl MCH (25.0-35.0) pg MCHC (31.0-37.0) g/dl RDW (11.5-14.5) % Plt Count (120.0-450.0) 10^3/uL MPV (7.0-11.0) fl Gran % (50.0-68.0) % Lymph % (Auto) (22.0-35.0) % [place] % (Auto) (1.0-6.0) % Eos % (Auto) (1.5-5.0) % Baso % (Auto) (0.0-3.0) % Gran # (1.4-6.5) Lymph # (1.2-3.4) [place] # (0.1-0.6) Eos # (0.0-0.7) Baso # (0.0-2.0) K/mm3 PT (9.9-11.8) Seconds INR (0.93-1.08) APTT (23.7-30.8) Seconds Sodium (132-148) mmol/L Potassium (3.6-5.0) mmol/L Chloride (98-107) mmol/L Carbon Dioxide (21-33) mmol/L Anion Gap (10-20) BUN (7-21) mg/dL Creatinine (0.8-1.5) mg/dL Est GFR ( Amer) Est GFR (Non-Af Amer) POC Glucose (mg/dL) 136 H 131 H 95 (65-110) mg/dL Random Glucose (70-110) mg/dL Calcium (8.4-10.5) mg/dL Phosphorus (2.5-4.5) mg/dL Magnesium (1.7-2.2) mg/dL Total Bilirubin (0.2-1.3) mg/dL AST (17-59) U/L ALT (7-56) U/L Alkaline Phosphatase (38-126) U/L Total Protein (5.8-8.3) g/dL Albumin (3.0-4.8) g/dL Globulin gm/dL Albumin/Globulin Ratio (1.1-1.8) 03/19/17 03/19/17 03/19/17 Range/Units 16:02 11:28 07:45 WBC (4.5-11.0) 10^3/ul RBC (3.5-6.1) 10^6/uL Hgb (14.0-18.0) g/dL Hct (42.0-52.0) % MCV (80.0-105.0) fl MCH (25.0-35.0) pg MCHC (31.0-37.0) g/dl RDW (11.5-14.5) % Plt Count (120.0-450.0) 10^3/uL MPV (7.0-11.0) fl Gran % (50.0-68.0) % Lymph % (Auto) (22.0-35.0) % [place] % (Auto) (1.0-6.0) % Eos % (Auto) (1.5-5.0) % Baso % (Auto) (0.0-3.0) % Gran # (1.4-6.5) Lymph # (1.2-3.4) [place] # (0.1-0.6) Eos # (0.0-0.7) Baso # (0.0-2.0) K/mm3 PT (9.9-11.8) Seconds INR (0.93-1.08) APTT (23.7-30.8) Seconds Sodium (132-148) mmol/L Potassium (3.6-5.0) mmol/L Chloride (98-107) mmol/L Carbon Dioxide (21-33) mmol/L Anion Gap (10-20) BUN (7-21) mg/dL Creatinine (0.8-1.5) mg/dL Est GFR ( Amer) Est GFR (Non-Af Amer) POC Glucose (mg/dL) 160 H 156 H (65-110) mg/dL Random Glucose (70-110) mg/dL Calcium (8.4-10.5) mg/dL Phosphorus 5.3 H (2.5-4.5) mg/dL Magnesium 2.0 (1.7-2.2) mg/dL Total Bilirubin (0.2-1.3) mg/dL AST (17-59) U/L ALT (7-56) U/L Alkaline Phosphatase (38-126) U/L Total Protein (5.8-8.3) g/dL Albumin (3.0-4.8) g/dL Globulin gm/dL Albumin/Globulin Ratio (1.1-1.8) Laboratory Results - last 24 hr 03/19/17 03/19/17 03/19/17 07:45 11:28 16:02 WBC RBC Hgb Hct MCV MCH MCHC RDW Plt Count MPV Gran % Lymph % (Auto) [place] % (Auto) Eos % (Auto) Baso % (Auto) Gran # Lymph # [place] # Eos # Baso # PT INR APTT Sodium Potassium Chloride Carbon Dioxide Anion Gap BUN Creatinine Est GFR ( Amer) Est GFR (Non-Af Amer) POC Glucose (mg/dL) 156 H 160 H Random Glucose Calcium Phosphorus 5.3 H Magnesium 2.0 Total Bilirubin AST ALT Alkaline Phosphatase Total Protein Albumin Globulin Albumin/Globulin Ratio 03/19/17 03/20/17 03/20/17 20:34 01:06 03:49 WBC RBC Hgb Hct MCV MCH MCHC RDW Plt Count MPV Gran % Lymph % (Auto) [place] % (Auto) Eos % (Auto) Baso % (Auto) Gran # Lymph # [place] # Eos # Baso # PT INR APTT Sodium Potassium Chloride Carbon Dioxide Anion Gap BUN Creatinine Est GFR ( Amer) Est GFR (Non-Af Amer) POC Glucose (mg/dL) 95 131 H 136 H Random Glucose Calcium Phosphorus Magnesium Total Bilirubin AST ALT Alkaline Phosphatase Total Protein Albumin Globulin Albumin/Globulin Ratio 03/20/17 03/20/17 03/20/17 05:30 05:30 05:30 WBC 15.2 H RBC 3.44 L Hgb 9.9 L Hct 29.5 L MCV 85.8 MCH 28.8 MCHC 33.6 RDW 13.9 Plt Count 200 MPV 9.6 Gran % 74.0 H Lymph % (Auto) 15.0 L [place] % (Auto) 7.2 H Eos % (Auto) 3.5 Baso % (Auto) 0.3 Gran # 11.27 H Lymph # 2.3 [place] # 1.1 H Eos # 0.5 Baso # 0.04 PT 12.0 H INR 1.11 H APTT 24.0 Sodium 142 Potassium 3.0 L Chloride 108 H Carbon Dioxide 22 Anion Gap 15 BUN 24 H Creatinine 0.8 Est GFR ( Amer) > 60 Est GFR (Non-Af Amer) > 60 POC Glucose (mg/dL) Random Glucose 140 H Calcium 8.9 Phosphorus 3.2 Magnesium 1.5 L Total Bilirubin 1.3 AST 61 H ALT 73 H Alkaline Phosphatase 106 Total Protein 7.0 Albumin 3.5 Globulin 3.5 Albumin/Globulin Ratio 1.0 L Fingerstick Blood Sugar Results: 136 Review of Systems - Review of Systems Systems not reviewed;Unavailable: Intubated Critical Care Progress Note - Nutrition Nutrition: Nutrition Category Date Time Status NPO Diet [DIET] Diets 03/14/17 Breakfast Ordered Assessment/Plan - Assessment and Plan (Free Text) Assessment: This is a 36 yo M with past medical history of substance abuse, depression, bipolar disorder, hypertension, anxiety disorder that presented with cardiac arrest in the field (downtime unknown) due to multi-drug overdose, with two further episodes of cardiac arrest on arrival, and likely witnessed seizure prior to initiation of increased sedation and paralytics. Remains off paralytics, but remains on high doses of sedatives due to multiple witnessed seizures, indicative of poor prognosis. Episode of coffee-ground emesis today, drained 600cc's into suction. Pending Trach and G-tube by surgery, then help desk rep care facility. Prognosis remains poor. Plan: Neuro: -currently sedated on Propofol and Precedex; seizing every time he is weaned, and has had breakthrough seizures as well, indicative of very poor prognosis -weaned from Nimbex, off >48 hours, if becomes tachypnic and fighting ventilator and unable to control with increased sedation, may need to reparalyze -MRI brain notable for likely anoxic injury in thalamix area bilaterally -No longer actively cooling, maintain normothermia -Urine toxicology positive for opiates, barbiturates and benzos -Seizure precautions, ppx with Keppra 1000mg IV q12, Dilantin TID as per Neuro -Neurology consulted - Dr. Rene, appreciate all recs; poor prognosis given burst suppression pattern on EEG with seizure when weaned from sedation -Poison control following Pulm: -Satting 95-100%, ABG this AM reviewed, mild alkalosis but otherwise stable as compared to prior ABG -CXR this AM reviewed, unchanged as compared to prior CXR -Currently on PRVC, tolerating pressure support, continue to monitor Cardio: -Off all pressor support >7 days, maintaining MAP > 65 consistently -Intermittent bradycardic episodes to mid-40's, appears 2/2 precedex, improved with weaning down precedex, but have to do cautiously as weaning from sedation has led to seizures -Troponins increased from <0.01 to 0.13 on admission -most recent EKG 03/13, notable for sinus halina to 48 and prolonged QTc at 537 ( unsurprising in setting of multi-drug abuse) -Cardiology consulted - Dr. Anderson -Echo ordered, notable for EF 54%, normal size/wall thickness LV, flattened septum, mild Pulm HTN/TR, mild RV dilation GI: -NPO -NGT placed, pending Gastrostomy tube placement, GI prophylaxis with protonix -LFTs improving -s/p x3 dosing of Acetadote as per Poison Control, no additional doses ordered -coffee-ground emesis today, estimated by nursing to be 200cc on bed and self, 600cc drainage after NGT set to suction; Abd Flat plate obtained to rule out perforation, no free air under the diaphragm visualized, no obstruction; 80mg IVP Protonix push given, increased protonix to BID, NGT left to suction, H Pylori antigen test ordered, empiric coverage with Flagyl (just completed course of Levofloxacin, will hold off on restarting it for now) Renal: -Cr improving, today 0.8 -Hypernatremia, added free water flushes 300cc q6h, Na today 142 -Will continue to monitor and treat electrolyte abnormalities as indicated; persistently low K requiring chronic repletion -Monitor I's and O's -Nephro following, appreciate all recs Endo: -Fingersticks q4h -Maintain euglycemia between 140-180's -Stress dose steroids discontinued ID: -multiple Blood and urine cultures drawn, remain negative -Most recent sputum (03/16) positive for light growth yeast, all other sputum cultures negative -Patient empirically covered with Cefepime, Levofloxacin, and Vanco; now off abx -Fever overnight, Tmax 101F, given recent GI bleed will empirically cover for H pylori, Flagyl ordered Heme: -Hgb unchanged to 9.9, stool occult pending, iron panel wnl -SCDs for DVT ppx -Coags stable, INR 1.14, was 1.13 Dispo: ICU, intubated/sedated, s/p seizure when weaning sedation, s/p EEG with burst-suppression pattern, new GI bleed suspected 2/2 ulceration from NGT; poor prognosis, pending Trach/PEG, prognosis very poor FEN: NPO, NS with KCl 40mEq at 100cc/hr, Free water flushes via NGT 300cc q6h Access: Peripheral IVs, R-femoral TLC removed yesterday Consults: Neuro, Cardio, Nephro, Poison Control, Surgery Ppx: Protonix covers for GI, SCDs for DVT Patient seen, examined, and reviewed with attending, Dr. Bush <Rachelle JONES,[facility] - Last Filed: 03/20/17 12:57> CCU Objective - Vital Signs / Intake & Output Vital Signs (Last 4 hours): Vital Signs Temp Pulse BP Pulse Ox 03/20/17 12:10 85 100 03/20/17 12:00 99.9 F H 74 164/90 H 100 03/20/17 11:50 72 100 03/20/17 11:40 77 100 03/20/17 11:30 74 100 03/20/17 11:20 74 100 03/20/17 11:10 77 100 03/20/17 11:00 75 161/93 H 100 03/20/17 10:50 77 100 03/20/17 10:40 74 100 03/20/17 10:30 72 100 03/20/17 10:20 72 100 03/20/17 10:10 72 100 03/20/17 10:00 73 149/95 H 100 03/20/17 09:50 74 100 03/20/17 09:40 68 100 03/20/17 09:30 68 100 03/20/17 09:20 69 100 03/20/17 09:10 68 100 03/20/17 09:00 72 172/91 H 100 Intake and Output (Last 8hrs): Intake & Output 03/19/17 03/20/17 03/20/17 22:59 06:59 14:59 Intake Total 200 4179 200 Output Total 2100 3350 Balance -1900 829 200 Weight 249 lb Intake: IV 200 4179 200 Left Antecubital 1679 Left Hand 2000 Oral 0 Output: Urine 2100 3350 Urethral (Ar[place]) 2100 3350 Other: # Bowel Movements 0 - Medications Active Medications: Active Medications Generic Name Dose Route Start Last Admin Trade Name Freq PRN Reason Stop Dose Admin Albuterol/Ipratropium 3 ml 03/13/17 15:07 03/13/17 15:45 Duoneb 3 Mg/0.5 Mg (3 Ml) Ud IH 3 ml Q2H PRN Administration Shortness of Breath Albuterol/Ipratropium 3 ml 03/13/17 20:00 03/20/17 07:42 Duoneb 3 Mg/0.5 Mg (3 Ml) Ud IH 3 ml [id number] MARICHUY Administration Chlorhexidine Gluconate 15 ml 03/13/17 10:00 03/20/17 10:45 Peridex PO 15 ml BID MARICHUY Administration Propofol 1,000 mg in 100 mls @ 3.674 mls/hr 03/12/17 07:41 03/20/17 12:06 Diprivan IV 57.15 mcg/kg/min .Q24H PRN 42 mls/hr TITRATE PER MD ORDER Administration Protocol 5 MCG/KG/MIN Levetiracetam 1,000 mg/ Sodium 110 mls @ 460 mls/hr 03/12/17 22:00 03/20/17 10:45 Chloride IV 460 mls/hr Q12 MARICHUY Administration Potassium Chloride 40 meq/ 1,020 mls @ 100 mls/hr 03/17/17 21:40 03/20/17 09: 53 Sodium Chloride IV 100 mls/hr .[id number] MARICHUY Administration Phenytoin 100 mg/ Sodium 52 mls @ 104 mls/hr 03/18/17 10:00 03/20/17 09:26 Chloride IVPB 104 mls/hr TID MARICHUY Administration Dexmedetomidine HCl 400 mcg in 100 mls @ 5.647 mls/hr 03/19/17 17:53 00:02 Precedex 4 Mcg/Ml (100 Ml) IV 0.2 mcg/kg/hr .[id number] PRN 5.647 mls/hr Sedation Administration Protocol 0.2 MCG/KG/HR Metronidazole 500 mg in 100 mls @ 100 mls/hr 03/20/17 14:00 Flagyl IVPB Q8 MARICHUY Protocol Pantoprazole Sodium 40 mg 03/20/17 22:00 Protonix Inj IVP Q12 MARICHUY - Patient Studies Lab Studies: Microbiology Studies 03/16/17 22:00 Blood Culture - Preliminary Blood-Venous NO GROWTH AFTER 3 DAYS 03/16/17 21:30 Blood Culture - Preliminary Blood-Venous NO GROWTH AFTER 3 DAYS Lab Studies 03/20/17 03/20/17 03/20/17 Range/Units 12:10 11:35 09:57 WBC 16.0 H (4.5-11.0) 10^3/ul RBC 3.66 (3.5-6.1) 10^6/uL Hgb 10.6 L (14.0-18.0) g/dL Hct 31.7 L (42.0-52.0) % MCV 86.6 (80.0-105.0) fl MCH 29.0 (25.0-35.0) pg MCHC 33.4 (31.0-37.0) g/dl RDW 13.9 (11.5-14.5) % Plt Count 225 (120.0-450.0) 10^3/uL MPV 10.4 (7.0-11.0) fl Gran % 75.2 H (50.0-68.0) % Lymph % (Auto) 13.6 L (22.0-35.0) % [place] % (Auto) 7.9 H (1.0-6.0) % Eos % (Auto) 3.1 (1.5-5.0) % Baso % (Auto) 0.2 (0.0-3.0) % Gran # 12.03 H (1.4-6.5) Lymph # 2.2 (1.2-3.4) [place] # 1.3 H (0.1-0.6) Eos # 0.5 (0.0-0.7) Baso # 0.03 (0.0-2.0) K/mm3 PT (9.9-11.8) Seconds INR (0.93-1.08) APTT (23.7-30.8) Seconds Sodium (132-148) mmol/L Potassium (3.6-5.0) mmol/L Chloride (98-107) mmol/L Carbon Dioxide (21-33) mmol/L Anion Gap (10-20) BUN (7-21) mg/dL Creatinine (0.8-1.5) mg/dL Est GFR ( Amer) Est GFR (Non-Af Amer) POC Glucose (mg/dL) 119 H (65-110) mg/dL Random Glucose (70-110) mg/dL Calcium (8.4-10.5) mg/dL Phosphorus (2.5-4.5) mg/dL Magnesium (1.7-2.2) mg/dL Total Bilirubin (0.2-1.3) mg/dL AST (17-59) U/L ALT (7-56) U/L Alkaline Phosphatase (38-126) U/L Total Protein (5.8-8.3) g/dL Albumin (3.0-4.8) g/dL Globulin gm/dL Albumin/Globulin Ratio (1.1-1.8) Blood Type Blood Type Confirm A POSITIVE Antibody Screen BBK History Checked 03/20/17 03/20/17 03/20/17 Range/Units 09:00 05:30 05:30 WBC (4.5-11.0) 10^3/ul RBC (3.5-6.1) 10^6/uL Hgb (14.0-18.0) g/dL Hct (42.0-52.0) % MCV (80.0-105.0) fl MCH (25.0-35.0) pg MCHC (31.0-37.0) g/dl RDW (11.5-14.5) % Plt Count (120.0-450.0) 10^3/uL MPV (7.0-11.0) fl Gran % (50.0-68.0) % Lymph % (Auto) (22.0-35.0) % [place] % (Auto) (1.0-6.0) % Eos % (Auto) (1.5-5.0) % Baso % (Auto) (0.0-3.0) % Gran # (1.4-6.5) Lymph # (1.2-3.4) [place] # (0.1-0.6) Eos # (0.0-0.7) Baso # (0.0-2.0) K/mm3 PT 12.0 H (9.9-11.8) Seconds INR 1.11 H (0.93-1.08) APTT 24.0 (23.7-30.8) Seconds Sodium 142 (132-148) mmol/L Potassium 3.0 L (3.6-5.0) mmol/L Chloride 108 H (98-107) mmol/L Carbon Dioxide 22 (21-33) mmol/L Anion Gap 15 (10-20) BUN 24 H (7-21) mg/dL Creatinine 0.8 (0.8-1.5) mg/dL Est GFR ( Amer) > 60 Est GFR (Non-Af Amer) > 60 POC Glucose (mg/dL) (65-110) mg/dL Random Glucose 140 H (70-110) mg/dL Calcium 8.9 (8.4-10.5) mg/dL Phosphorus 3.2 (2.5-4.5) mg/dL Magnesium 1.5 L (1.7-2.2) mg/dL Total Bilirubin 1.3 (0.2-1.3) mg/dL AST 61 H (17-59) U/L ALT 73 H (7-56) U/L Alkaline Phosphatase 106 (38-126) U/L Total Protein 7.0 (5.8-8.3) g/dL Albumin 3.5 (3.0-4.8) g/dL Globulin 3.5 gm/dL Albumin/Globulin Ratio 1.0 L (1.1-1.8) Blood Type A POSITIVE Blood Type Confirm Antibody Screen Negative BBK History Checked No verified bt 03/20/17 03/20/17 03/20/17 Range/Units 05:30 03:49 01:06 WBC 15.2 H (4.5-11.0) 10^3/ul RBC 3.44 L (3.5-6.1) 10^6/uL Hgb 9.9 L (14.0-18.0) g/dL Hct 29.5 L (42.0-52.0) % MCV 85.8 (80.0-105.0) fl MCH 28.8 (25.0-35.0) pg MCHC 33.6 (31.0-37.0) g/dl RDW 13.9 (11.5-14.5) % Plt Count 200 (120.0-450.0) 10^3/uL MPV 9.6 (7.0-11.0) fl Gran % 74.0 H (50.0-68.0) % Lymph % (Auto) 15.0 L (22.0-35.0) % [place] % (Auto) 7.2 H (1.0-6.0) % Eos % (Auto) 3.5 (1.5-5.0) % Baso % (Auto) 0.3 (0.0-3.0) % Gran # 11.27 H (1.4-6.5) Lymph # 2.3 (1.2-3.4) [place] # 1.1 H (0.1-0.6) Eos # 0.5 (0.0-0.7) Baso # 0.04 (0.0-2.0) K/mm3 PT (9.9-11.8) Seconds INR (0.93-1.08) APTT (23.7-30.8) Seconds Sodium (132-148) mmol/L Potassium (3.6-5.0) mmol/L Chloride (98-107) mmol/L Carbon Dioxide (21-33) mmol/L Anion Gap (10-20) BUN (7-21) mg/dL Creatinine (0.8-1.5) mg/dL Est GFR ( Amer) Est GFR (Non-Af Amer) POC Glucose (mg/dL) 136 H 131 H (65-110) mg/dL Random Glucose (70-110) mg/dL Calcium (8.4-10.5) mg/dL Phosphorus (2.5-4.5) mg/dL Magnesium (1.7-2.2) mg/dL Total Bilirubin (0.2-1.3) mg/dL AST (17-59) U/L ALT (7-56) U/L Alkaline Phosphatase (38-126) U/L Total Protein (5.8-8.3) g/dL Albumin (3.0-4.8) g/dL Globulin gm/dL Albumin/Globulin Ratio (1.1-1.8) Blood Type Blood Type Confirm Antibody Screen BBK History Checked 03/19/17 03/19/17 Range/Units 20:34 16:02 WBC (4.5-11.0) 10^3/ul RBC (3.5-6.1) 10^6/uL Hgb (14.0-18.0) g/dL Hct (42.0-52.0) % MCV (80.0-105.0) fl MCH (25.0-35.0) pg MCHC (31.0-37.0) g/dl RDW (11.5-14.5) % Plt Count (120.0-450.0) 10^3/uL MPV (7.0-11.0) fl Gran % (50.0-68.0) % Lymph % (Auto) (22.0-35.0) % [place] % (Auto) (1.0-6.0) % Eos % (Auto) (1.5-5.0) % Baso % (Auto) (0.0-3.0) % Gran # (1.4-6.5) Lymph # (1.2-3.4) [place] # (0.1-0.6) Eos # (0.0-0.7) Baso # (0.0-2.0) K/mm3 PT (9.9-11.8) Seconds INR (0.93-1.08) APTT (23.7-30.8) Seconds Sodium (132-148) mmol/L Potassium (3.6-5.0) mmol/L Chloride (98-107) mmol/L Carbon Dioxide (21-33) mmol/L Anion Gap (10-20) BUN (7-21) mg/dL Creatinine (0.8-1.5) mg/dL Est GFR ( Amer) Est GFR (Non-Af Amer) POC Glucose (mg/dL) 95 160 H (65-110) mg/dL Random Glucose (70-110) mg/dL Calcium (8.4-10.5) mg/dL Phosphorus (2.5-4.5) mg/dL Magnesium (1.7-2.2) mg/dL Total Bilirubin (0.2-1.3) mg/dL AST (17-59) U/L ALT (7-56) U/L Alkaline Phosphatase (38-126) U/L Total Protein (5.8-8.3) g/dL Albumin (3.0-4.8) g/dL Globulin gm/dL Albumin/Globulin Ratio (1.1-1.8) Blood Type Blood Type Confirm Antibody Screen BBK History Checked Laboratory Results - last 24 hr 03/19/17 03/19/17 03/20/17 16:02 20:34 01:06 WBC RBC Hgb Hct MCV MCH MCHC RDW Plt Count MPV Gran % Lymph % (Auto) [place] % (Auto) Eos % (Auto) Baso % (Auto) Gran # Lymph # [place] # Eos # Baso # PT INR APTT Sodium Potassium Chloride Carbon Dioxide Anion Gap BUN Creatinine Est GFR ( Amer) Est GFR (Non-Af Amer) POC Glucose (mg/dL) 160 H 95 131 H Random Glucose Calcium Phosphorus Magnesium Total Bilirubin AST ALT Alkaline Phosphatase Total Protein Albumin Globulin Albumin/Globulin Ratio Blood Type Blood Type Confirm Antibody Screen BBK History Checked 03/20/17 03/20/17 03/20/17 03:49 05:30 05:30 WBC 15.2 H RBC 3.44 L Hgb 9.9 L Hct 29.5 L MCV 85.8 MCH 28.8 MCHC 33.6 RDW 13.9 Plt Count 200 MPV 9.6 Gran % 74.0 H Lymph % (Auto) 15.0 L [place] % (Auto) 7.2 H Eos % (Auto) 3.5 Baso % (Auto) 0.3 Gran # 11.27 H Lymph # 2.3 [place] # 1.1 H Eos # 0.5 Baso # 0.04 PT INR APTT Sodium 142 Potassium 3.0 L Chloride 108 H Carbon Dioxide 22 Anion Gap 15 BUN 24 H Creatinine 0.8 Est GFR ( Amer) > 60 Est GFR (Non-Af Amer) > 60 POC Glucose (mg/dL) 136 H Random Glucose 140 H Calcium 8.9 Phosphorus 3.2 Magnesium 1.5 L Total Bilirubin 1.3 AST 61 H ALT 73 H Alkaline Phosphatase 106 Total Protein 7.0 Albumin 3.5 Globulin 3.5 Albumin/Globulin Ratio 1.0 L Blood Type Blood Type Confirm Antibody Screen BBK History Checked 03/20/17 03/20/17 03/20/17 05:30 09:00 09:57 WBC RBC Hgb Hct MCV MCH MCHC RDW Plt Count MPV Gran % Lymph % (Auto) [place] % (Auto) Eos % (Auto) Baso % (Auto) Gran # Lymph # [place] # Eos # Baso # PT 12.0 H INR 1.11 H APTT 24.0 Sodium Potassium Chloride Carbon Dioxide Anion Gap BUN Creatinine Est GFR ( Amer) Est GFR (Non-Af Amer) POC Glucose (mg/dL) Random Glucose Calcium Phosphorus Magnesium Total Bilirubin AST ALT Alkaline Phosphatase Total Protein Albumin Globulin Albumin/Globulin Ratio Blood Type A POSITIVE Blood Type Confirm A POSITIVE Antibody Screen Negative BBK History Checked No verified bt 03/20/17 03/20/17 11:35 12:10 WBC 16.0 H RBC 3.66 Hgb 10.6 L Hct 31.7 L MCV 86.6 MCH 29.0 MCHC 33.4 RDW 13.9 Plt Count 225 MPV 10.4 Gran % 75.2 H Lymph % (Auto) 13.6 L [place] % (Auto) 7.9 H Eos % (Auto) 3.1 Baso % (Auto) 0.2 Gran # 12.03 H Lymph # 2.2 [place] # 1.3 H Eos # 0.5 Baso # 0.03 PT INR APTT Sodium Potassium Chloride Carbon Dioxide Anion Gap BUN Creatinine Est GFR ( Amer) Est GFR (Non-Af Amer) POC Glucose (mg/dL) 119 H Random Glucose Calcium Phosphorus Magnesium Total Bilirubin AST ALT Alkaline Phosphatase Total Protein Albumin Globulin Albumin/Globulin Ratio Blood Type Blood Type Confirm Antibody Screen BBK History Checked Critical Care Progress Note - Nutrition Nutrition: Nutrition Category Date Time Status NPO Diet [DIET] Diets 03/14/17 Breakfast Ordered Attending/Attestation - Attestation I have personally seen and examined this patient.: Yes I have fully participated in the care of the patient.: Yes I have reviewed all pertinent clinical information: Yes Notes (Text): 03/20/17 12:53 36 y/o M s/p cardiac arrest x3 and downtime > 30min. Poor neurological recovery . Cont seizures noted. Tried off all sedation but seizures were evident. On dilantin / Keppra. WIll try to wean as tolerated. No meaningful movements , sporadic movements noted, twitching and myoclonic jerks. On tube feeds as tolerated. NGT high output today. Electrolytes and CBC to be monitored. Vent settings improving to keep Pao2> 60 and PH> 7.2 Urine output improving as well. Likely from ATN. Plan for Trach / PEG placement wednesday. DVT Pppi cc time 65 min
--- NOTE | 2017-03-20 09:07 | RAD ---
HISTORY: coffee ground emesis suction COMPARISON: No prior. FINDINGS: Study is somewhat limited due to motion artifact. In situ NGT the tip which overlies the reaches the fundus of the stomach. No gross free intraperitoneal air BOWEL: Normal. No obstruction. No free air. BONES: Normal. OTHER FINDINGS: None. IMPRESSION: Slightly limited motion degraded study. In situ NGT as described. No evidence of acute mechanical bowel obstruction
[2017-03-20] MEDS ORDERED: Phenytoin 100 mg/2 ml Inj ONE (09:26)
--- NOTE | 2017-03-20 09:28 | CP.PCM.PN ---
<Zac Archer - Last Filed: 03/20/17 09:30> Subjective - Date & Time of Evaluation Date of Evaluation: 03/20/17 Time of Evaluation: 06:26 - Subjective Subjective: Patient was seen and examined at bedside. Per nursing the patient accidentally was extubated overnight and had to be re-intubated as a result. ROS unobtainable due to current clinical condition. Objective - Vital Signs/Intake and Output Vital Signs (last 24 hours): Temp Pulse Resp BP Pulse Ox 100.5 F H 69 26 H 159/80 H 100 03/20/17 04:00 03/20/17 07:00 03/20/17 07:45 03/20/17 07:00 03/20/17 07:45 Intake and Output: 03/20/17 03/20/17 06:59 18:59 Intake Total 4279 Output Total 5450 Balance -1171 - Medications Medications: Current Medications Albuterol/Ipratropium (Duoneb 3 Mg/0.5 Mg (3 Ml) Ud) 3 ml IH Q2H PRN PRN Reason: Shortness of Breath Last Admin: 03/13/17 15:45 Dose: 3 ml Albuterol/Ipratropium (Duoneb 3 Mg/0.5 Mg (3 Ml) Ud) 3 ml IH [id number] [facility] Last Admin: 03/20/17 07:42 Dose: 3 ml Chlorhexidine Gluconate (Peridex) 15 ml PO BID [facility] Last Admin: 03/19/17 17:59 Dose: 15 ml Propofol (Diprivan) 1,000 mg in 100 mls @ 3.674 mls/hr IV .Q24H PRN; Protocol; 5 MCG/KG/MIN PRN Reason: TITRATE PER MD ORDER Last Admin: 03/20/17 06:34 Dose: 50 mcg/kg/min, 36.741 mls/hr Levetiracetam 1,000 mg/ Sodium (Chloride) 110 mls @ 460 mls/hr IV Q12 [facility] Last Admin: 03/19/17 21:17 Dose: 460 mls/hr Potassium Chloride 40 meq/ (Sodium Chloride) 1,020 mls @ 100 mls/hr IV .[id number] [facility] Last Admin: 03/19/17 21:12 Dose: 100 mls/hr Phenytoin 100 mg/ Sodium (Chloride) 52 mls @ 104 mls/hr IVPB TID [facility] Last Admin: 03/19/17 17:57 Dose: 104 mls/hr Dexmedetomidine HCl (Precedex 4 Mcg/Ml (100 Ml)) 400 mcg in 100 mls @ 5.647 mls /hr IV .[id number] PRN; Protocol; 0.2 MCG/KG/HR PRN Reason: Sedation Last Admin: 03/20/17 00:02 Dose: 0.2 mcg/kg/hr, 5.647 mls/hr Potassium Chloride (Potassium Chloride 20 Meq/100 Ml) 20 meq in 100 mls @ 50 mls/hr IVPB Q2H [facility] Stop: 03/20/17 11:14 Pantoprazole Sodium (Protonix Inj) 40 mg IVP DAILY [facility] Last Admin: 03/19/17 09:51 Dose: 40 mg - Labs Labs: 03/20/17 05:30 03/20/17 05:30 PT 12.0 Seconds (9.9-11.8) H 03/20/17 05:30 INR 1.11 (0.93-1.08) H 03/20/17 05:30 APTT 24.0 Seconds (23.7-30.8) 03/20/17 05:30 - Head Exam Head Exam: ATRAUMATIC, NORMAL INSPECTION, NORMOCEPHALIC - Eye Exam Eye Exam: Normal appearance, PERRL. absent: EOMI, Periorbital tenderness Pupil Exam: PERRL. absent: Irregular, NORMAL ACCOMODATION, Unequal - ENT Exam ENT Exam: Mucous Membranes Moist, Normal Oropharynx Additional comments: Intubated. - Neck Exam Neck Exam: Normal Inspection. absent: Lymphadenopathy, Thyromegaly - Respiratory Exam Respiratory Exam: Rhonchi, NORMAL BREATHING PATTERN. absent: Clear to Ausculation Bilateral - Cardiovascular Exam Cardiovascular Exam: REGULAR RHYTHM, RRR, +S1, +S2. absent: Gallop, Rubs - GI/Abdominal Exam GI & Abdominal Exam: Soft, Normal Bowel Sounds. absent: Guarding, Rigid, Tenderness, Hyperactive Bowel Sounds - Extremities Exam Extremities Exam: Normal Inspection. absent: Joint Swelling, Pedal Edema - Neurological Exam Neurological Exam: Altered - Skin Skin Exam: Dry, Intact Assessment and Plan - Assessment and Plan (Free Text) Assessment: 36 y/o male with PMH of substance abuse presents with drug overdose, with multiple substances (+BZDs, barbiturate, Opiates), s/p ROSC after cardiac arrest x 3, unknown initial downtime at home. Tracheostomy and G-tube placement not placed yesterday by surgery due to hypernatremia. Pt will be rescheduled for Wednesday. Pt also started on d5W and free water via the NGT. Antibiotics will also be stopped at tihs time. Prognosis discussed with family, who are still hopeful patient will have a meaningful recovery. Plan: Neuro: -Patient intubated and unresponsive on sedative medication -Continue to Maintain temp ~92-94F -Neurochecks q2h -Urine toxicology positive for opiates, barbiturates and benzos -CT Head (-). Seen by Neurology. -Repeat EEG demonstrates anoxic brain injury and poor prognosis. -Brain MRI showed anoxic injury in thalamic region bilaterally. -Will continue to attempt weaning trials -Continue Seizure precautions -Neuro status hard to determine due to sedation. Will reassess once sedation is weaned off. Cardio: -Continue propofol, Cisatracurium, and Midozalam with goal MAP > 70 -EKG reviewed; atrial fibrillation with slow ventricular response (51bpm), nonspecific intraventricular block -F/U with Cardiology recs. Pulm: -Failed CPAP trial, will remain on full ventilatory support. Patient expected to undergo Tracheostomy on Wednesday. -ABG and CXR reviewed -patient pO2 stable. Patient's FiO2 remains at 40%. Will monitor closely. -Continue serial CXR and ABG. GI: -NPO -NGT -Protonix Renal: -Hypernatremic, will continue on D5W and free water via NGT. Na today 142. Will continue to monitor closely. -Hypokalemia (3.0 today). Will replete as needed. -Will continue to monitor and treat electrolyte abnormalities as indicated -Monitor I's and O's Endo: -Fingersticks q2h -Maintain euglycemia between 140-180's -Stress dose steroids, tapering ID: -Afebrile, leukocytosis improving -Cultures negative at this time -Full course of abx given, will D/C at this time GI/DVT Prophylaxis -Protonix/SCD's <Raheel Espitia - Last Filed: 03/20/17 19:05> Objective - Vital Signs/Intake and Output Vital Signs (last 24 hours): Temp Pulse Resp BP Pulse Ox 99 F 79 26 H 132/85 100 03/20/17 16:00 03/20/17 18:30 03/20/17 07:50 03/20/17 18:00 03/20/17 18:30 Intake and Output: 03/20/17 03/21/17 18:59 06:59 Intake Total 3000 Output Total 2650 Balance 350 - Medications Medications: Current Medications Albuterol/Ipratropium (Duoneb 3 Mg/0.5 Mg (3 Ml) Ud) 3 ml IH Q2H PRN PRN Reason: Shortness of Breath Last Admin: 03/13/17 15:45 Dose: 3 ml Albuterol/Ipratropium (Duoneb 3 Mg/0.5 Mg (3 Ml) Ud) 3 ml IH [id number] [facility] Last Admin: 03/20/17 13:15 Dose: 3 ml Chlorhexidine Gluconate (Peridex) 15 ml PO BID [facility] Last Admin: 03/20/17 17:13 Dose: 15 ml Propofol (Diprivan) 1,000 mg in 100 mls @ 3.674 mls/hr IV .Q24H PRN; Protocol; 5 MCG/KG/MIN PRN Reason: TITRATE PER MD ORDER Last Admin: 03/20/17 17:00 Dose: 57.15 mcg/kg/min, 42 mls/hr Levetiracetam 1,000 mg/ Sodium (Chloride) 110 mls @ 460 mls/hr IV Q12 [facility] Last Admin: 03/20/17 10:45 Dose: 460 mls/hr Potassium Chloride 40 meq/ (Sodium Chloride) 1,020 mls @ 100 mls/hr IV .[id number] [facility] Last Admin: 03/20/17 09:53 Dose: 100 mls/hr Phenytoin 100 mg/ Sodium (Chloride) 52 mls @ 104 mls/hr IVPB TID [facility] Last Admin: 03/20/17 17:13 Dose: 104 mls/hr Dexmedetomidine HCl (Precedex 4 Mcg/Ml (100 Ml)) 400 mcg in 100 mls @ 5.647 mls /hr IV .[id number] PRN; Protocol; 0.2 MCG/KG/HR PRN Reason: Sedation Last Admin: 03/20/17 14:23 Dose: 0.2 mcg/kg/hr, 5.647 mls/hr Metronidazole (Flagyl) 500 mg in 100 mls @ 100 mls/hr IVPB Q8 [facility] PRN Reason: Protocol Last Admin: 03/20/17 13:25 Dose: 100 mls/hr Midazolam 100 mg/100ml in NS (Midazolam 100 Mg/100ml In Ns) 100 mg in 100 mls @ 1 mls/hr IV .Q24H PRN; Protocol; 1 MG/HR PRN Reason: Sedation Last Admin: 03/20/17 18:13 Dose: 2 mg/hr, 2 mls/hr Pantoprazole Sodium (Protonix Inj) 40 mg IVP Q12 [facility] - Labs Labs: 03/20/17 12:10 03/20/17 05:30 PT 12.0 Seconds (9.9-11.8) H 03/20/17 05:30 INR 1.11 (0.93-1.08) H 03/20/17 05:30 APTT 24.0 Seconds (23.7-30.8) 03/20/17 05:30 Attending/Attestation - Attestation I have personally seen and examined this patient.: Yes I have fully participated in the care of the patient.: Yes I have reviewed all pertinent clinical information, including history, physical exam and plan: Yes Notes (Text): 03/20/17 19:04 36 year old male with past medical history of depression, anxiety, hypertension , and substance abuse who presented with cardiac arrest secondary to suspected drug overdose. Urine drug screen was positive for opiates, barbituates and benzodiazepines. He is currently intubated. Continue with vent management and weaning trials as per tobacco cutter. MRI brain showed signs of anoxic injury. EEG was reviewed as well. Neurology is following the patient. Plan is for possible trach and peg on Wednesday. He was also initially found to have renal insufficiency and elevated LFTs which have improved. He has completed course of antibiotics and his stress dose steroids were tapered. Will replete and repeat lytes. Raheel Espitia MD Hospitalist.
[2017-03-20] MEDS: Potassium Chloride 40 MEQ in Sodium Chloride 0.45% 1,000 ML IV SCH ×2 (09:53→21:40)
[2017-03-20] MEDS: Chlorhexidine 0.12% Oral Sol 480 ml Bot PO SCH ×2 (10:45→17:13)
[2017-03-20] MEDS: levETIRAcetam 1,000 MG in Sodium Chloride 0.9% 100 ML IV SCH ×2 (10:45→21:42)
[2017-03-20] MEDS ORDERED: Magnesium Sulfate 2 GM in Sodium Chloride 0.9% 100 ML IVPB ONE (11:12)
[2017-03-20] MEDS ORDERED: cefTRIAXone 1 gm 1 GM/100 ML BAG IVPB STA (11:56)
[2017-03-20 12:39] LABS: BASO # 0.03 K/mm3 (0.0-2.0); BASO % 0.2 % (0.0-3.0); EOS # 0.5 (0.0-0.7); EOS % 3.1 % (1.5-5.0); GRAN # 12.03 (1.4-6.5); GRAN % 75.2 % (50.0-68.0); HEMATOCRIT 31.7 % (42.0-52.0); LYMPH # 2.2 (1.2-3.4); LYMPH % 13.6 % (22.0-35.0); MEAN CELL VOLUME 86.6 fl (80.0-105.0); MEAN CORPUSCULAR HGB CONC 33.4 g/dl (31.0-37.0); MEAN PLATELET VOLUME 10.4 fl (7.0-11.0); MONO # 1.3 (0.1-0.6); MONO % 7.9 % (1.0-6.0); RED CELL DISTRIBUTION WIDTH 13.9 % (11.5-14.5)
[2017-03-20] MEDS: metroNIDAZOLE IV 500 mg/100 ml 500 MG/100 ML BAG IVPB SCH ×2 (13:25→21:54)
[2017-03-20] MEDS ORDERED: Midazolam 100 mg/100ml in NS 100 MG/100 ML SOL IV PRN (17:19)
--- NOTE | 2017-03-20 18:33 | CP.PCM.PN ---
Subjective - Date & Time of Evaluation Date of Evaluation: 03/20/17 Time of Evaluation: 11:45 - Subjective Subjective: Reportedly opening his eyes more; otherwise, got accidentally extubated overnight, re-intubated; Objective - Vital Signs/Intake and Output Vital Signs (last 24 hours): Temp Pulse Resp BP Pulse Ox 99.9 F H 83 26 H 161/94 H 100 03/20/17 12:00 03/20/17 14:10 03/20/17 07:50 03/20/17 13:00 03/20/17 14:10 Intake and Output: 03/20/17 03/20/17 06:59 18:59 Intake Total 4279 500 Output Total 5450 Balance -1171 500 - Medications Medications: Current Medications Albuterol/Ipratropium (Duoneb 3 Mg/0.5 Mg (3 Ml) Ud) 3 ml IH Q2H PRN PRN Reason: Shortness of Breath Last Admin: 03/13/17 15:45 Dose: 3 ml Albuterol/Ipratropium (Duoneb 3 Mg/0.5 Mg (3 Ml) Ud) 3 ml IH [id number] [facility] Last Admin: 03/20/17 13:15 Dose: 3 ml Chlorhexidine Gluconate (Peridex) 15 ml PO BID [facility] Last Admin: 03/20/17 17:13 Dose: 15 ml Propofol (Diprivan) 1,000 mg in 100 mls @ 3.674 mls/hr IV .Q24H PRN; Protocol; 5 MCG/KG/MIN PRN Reason: TITRATE PER MD ORDER Last Admin: 03/20/17 17:00 Dose: 57.15 mcg/kg/min, 42 mls/hr Levetiracetam 1,000 mg/ Sodium (Chloride) 110 mls @ 460 mls/hr IV Q12 [facility] Last Admin: 03/20/17 10:45 Dose: 460 mls/hr Potassium Chloride 40 meq/ (Sodium Chloride) 1,020 mls @ 100 mls/hr IV .[id number] [facility] Last Admin: 03/20/17 09:53 Dose: 100 mls/hr Phenytoin 100 mg/ Sodium (Chloride) 52 mls @ 104 mls/hr IVPB TID [facility] Last Admin: 03/20/17 17:13 Dose: 104 mls/hr Dexmedetomidine HCl (Precedex 4 Mcg/Ml (100 Ml)) 400 mcg in 100 mls @ 5.647 mls /hr IV .[id number] PRN; Protocol; 0.2 MCG/KG/HR PRN Reason: Sedation Last Admin: 03/20/17 14:23 Dose: 0.2 mcg/kg/hr, 5.647 mls/hr Metronidazole (Flagyl) 500 mg in 100 mls @ 100 mls/hr IVPB Q8 [facility] PRN Reason: Protocol Last Admin: 03/20/17 13:25 Dose: 100 mls/hr Midazolam 100 mg/100ml in NS (Midazolam 100 Mg/100ml In Ns) 100 mg in 100 mls @ 1 mls/hr IV .Q24H PRN; Protocol; 1 MG/HR PRN Reason: Sedation Last Admin: 03/20/17 18:13 Dose: 2 mg/hr, 2 mls/hr Pantoprazole Sodium (Protonix Inj) 40 mg IVP Q12 [facility] - Labs Labs: 03/20/17 12:10 03/20/17 05:30 PT 12.0 Seconds (9.9-11.8) H 03/20/17 05:30 INR 1.11 (0.93-1.08) H 03/20/17 05:30 APTT 24.0 Seconds (23.7-30.8) 03/20/17 05:30 - Constitutional Appears: Non-toxic, No Acute Distress - Head Exam Head Exam: NORMAL INSPECTION - Eye Exam Eye Exam: Normal appearance - ENT Exam ENT Exam: Mucous Membranes Moist - Respiratory Exam Respiratory Exam: Clear to Ausculation Bilateral. absent: Respiratory Distress - Cardiovascular Exam Cardiovascular Exam: RRR, +S1, +S2 - GI/Abdominal Exam GI & Abdominal Exam: Soft. absent: Distended - Extremities Exam Additional comments: no significant leg edema; - Neurological Exam Neurological Exam: Awake. absent: Alert - Skin Skin Exam: Warm. absent: Cyanosis Assessment and Plan (1) Acute renal failure Assessment & Plan: ATN, resolving; polyuria persists; continue with 1/2NS at 100 cc/hr to avoid volume depletion; Status: Acute (2) ARDS (adult respiratory distress syndrome) Assessment & Plan: Overall much improved; Status: Acute (3) Polyuria Assessment & Plan: Persists; will re-assess after D5W stopped; Status: Acute (4) Electrolyte imbalance Assessment & Plan: Hypernatremia much improved; stopping D5W; continue to replenish K prn; continue 40 meq/L KCl in IVF; Status: Acute
[2017-03-21] MEDS: Propofol 10 mg/ml 1,000 MG/100 ML VIAL IV PRN ×9 (00:09→22:43)
[2017-03-21] MEDS: Albuterol-Ipratrop 3 mg / 0.5 (3 ml) UD IH SCH ×4 (03:04→20:30)
[2017-03-21] MEDS: metroNIDAZOLE IV 500 mg/100 ml 500 MG/100 ML BAG IVPB SCH ×3 (05:21→21:29)
[2017-03-21 05:49] LABS: BASO # 0.02 K/mm3 (0.0-2.0); BASO % 0.1 % (0.0-3.0); EOS # 0.3 (0.0-0.7); EOS % 1.7 % (1.5-5.0); GRAN # 10.49 (1.4-6.5); GRAN % 72.5 % (50.0-68.0); HEMATOCRIT 30.6 % (42.0-52.0); LYMPH # 2.4 (1.2-3.4); LYMPH % 16.4 % (22.0-35.0); MEAN CELL VOLUME 85.7 fl (80.0-105.0); MEAN CORPUSCULAR HEMOGLOBIN 28.9 pg (25.0-35.0); MEAN CORPUSCULAR HGB CONC 33.7 g/dl (31.0-37.0); MEAN PLATELET VOLUME 10.2 fl (7.0-11.0); MONO # 1.3 (0.1-0.6); MONO % 9.3 % (1.0-6.0); RED CELL DISTRIBUTION WIDTH 13.8 % (11.5-14.5); WHITE BLOOD COUNT 14.5 10^3/ul (4.5-11.0)
--- NOTE | 2017-03-21 05:49 | CP.CCUPN ---
<Jerman Kilgore - Last Filed: 03/21/17 09:44> CCU Subjective - Physician Review Subjective (Free Text): 03/21/17 05:43 Patient seen and examined at bedside in the ICU. More seizure episodes noted yesterday, but family continues to wish to move forward with all measures. No further coffee-ground emesis episodes yesterday or overnight; as per nursing no acute events overnight. NGT remains on suction, no new coffee-ground colored material noted. Remains intubated, sedated, noted to have intermittent twitches in extremities, eyes, and face, but no purposeful movements. CCU Objective - Vital Signs / Intake & Output Vital Signs (Last 4 hours): Vital Signs Temp Pulse BP Pulse Ox 03/21/17 05:00 91 H 168/91 H 96 03/21/17 04:50 98 H 94 L 03/21/17 04:40 100 H 99 03/21/17 04:30 92 H 100 03/21/17 04:20 89 03/21/17 04:10 109 H 91 L 03/21/17 04:00 99.8 F H 88 157/95 H 100 03/21/17 03:50 85 100 03/21/17 03:40 86 100 03/21/17 03:30 79 100 03/21/17 03:20 81 100 03/21/17 03:10 81 100 03/21/17 03:00 84 149/84 100 03/21/17 02:50 83 100 03/21/17 02:40 80 100 03/21/17 02:30 85 100 03/21/17 02:20 99 H 97 03/21/17 02:10 81 100 03/21/17 02:00 82 148/85 100 03/21/17 01:50 82 100 Intake and Output (Last 8hrs): Intake & Output 03/20/17 03/20/17 03/21/17 14:59 22:59 06:59 Intake Total 400 2898 300 Output Total 2650 Balance 400 248 300 Weight 103.737 kg Intake: IV 400 2898 300 Left Antecubital 550 Left Hand 1950 Output: Gastric Drainage 850 Urethral (Armenta) 850 Urine 1800 Urethral (Armenta) 1800 - Physical Exam Head: Positive for: Atraumatic, Normocephalic. Negative for: Ecchymosis, Abrasion, Laceration Pupils: Positive for: Other (pupils slightly more dilated, minimally reactive to direct light challenge) Extroacular Muscles: Positive for: Other (unable to assess, not moving eyes spontaneously, no avoidance of direct light challenge for PERRL assessment, intermittent fluttering of eyelids but not 2/2 to stimuli or purposeful, still attempts flickering of eyelids when help open or closed by examiner, eyes remain gazing downward) Conjunctiva: Negative for: Injected, Icteric Mouth: Positive for: Moist Mucous Membranes, Other (ETT in place with bite guard ). Negative for: Drooling Nose (External): Positive for: Atraumatic, Other (NGT in place set to suction, no more coffee-ground colored drainage noted). Negative for: Abrasion, Contusion, Laceration Neck: Positive for: Trachea Midline. Negative for: JVD, Lymphadenopathy Respiratory/Chest: Positive for: Clear to Auscultation, Good Air Exchange, Rales (mild-moderate rales in all breath [place], unchanged). Negative for: Accessory Muscle Use, Wheezes, Tachypneic Cardiovascular: Positive for: Normal S1, S2, Tachycardic. Negative for: Murmurs , Irregular Rhythm Abdomen: Negative for: Distention (obese but not distended, soft on palpation, no palpable masses or pulsatile masses), Normal Bowel Sounds (diminished but present bowel sounds, unchanged from multiple prior exams), Mass/Organomegaly Upper Extremity: Positive for: Normal Inspection. Negative for: Cyanosis, Edema , Normal ROM, NORMAL PULSES (faintly palpable radials +1), Swelling, Erythema, Deformity Lower Extremity: Positive for: Normal Inspection. Negative for: Edema, NORMAL PULSES (unable to palpate bilateral dorsalis pedis or posterior tibials), Cyanosis, Swelling, Erythema, Deformity Neurological: Positive for: Other (intubated and sedated, now off paralytics for ~12 hrs). Negative for: GCS=15 (GCS 3 (E1 V1t M1)), CN II-XII Intact, Speech Normal, Motor Func Grossly Intact Skin: Positive for: Warm, Dry, Normal Color. Negative for: Rashes Psychiatric: Positive for: Other (sedated and intubated, unable to assess). Negative for: Alert, Oriented x 3, Normal Insight, Normal Concentration, Normal Affect, Normal Mood - Medications Active Medications: Active Medications Generic Name Dose Route Start Last Admin Trade Name Freq PRN Reason Stop Dose Admin Albuterol/Ipratropium 3 ml 03/13/17 15:07 03/13/17 15:45 Duoneb 3 Mg/0.5 Mg (3 Ml) Ud IH 3 ml Q2H PRN Administration Shortness of Breath Albuterol/Ipratropium 3 ml 03/13/17 20:00 03/21/17 03:04 Duoneb 3 Mg/0.5 Mg (3 Ml) Ud IH 3 ml [id number] MARICHUY Administration Chlorhexidine Gluconate 15 ml 03/13/17 10:00 03/20/17 17:13 Peridex PO 15 ml BID MARICHUY Administration Propofol 1,000 mg in 100 mls @ 3.674 mls/hr 03/12/17 07:41 03/21/17 05:18 Diprivan IV 57.15 mcg/kg/min .Q24H PRN 41.995 mls/hr TITRATE PER MD ORDER Administration Protocol 5 MCG/KG/MIN Levetiracetam 1,000 mg/ Sodium 110 mls @ 460 mls/hr 03/12/17 22:00 03/20/17 21:42 Chloride IV 460 mls/hr Q12 MARICHUY Administration Potassium Chloride 40 meq/ 1,020 mls @ 100 mls/hr 03/17/17 21:40 03/20/17 21: 40 Sodium Chloride IV 100 mls/hr .[id number] MARICHUY Administration Phenytoin 100 mg/ Sodium 52 mls @ 104 mls/hr 03/18/17 10:00 03/20/17 17:13 Chloride IVPB 104 mls/hr TID MARICHUY Administration Dexmedetomidine HCl 400 mcg in 100 mls @ 5.647 mls/hr 03/19/17 17:53 14:23 Precedex 4 Mcg/Ml (100 Ml) IV 0.2 mcg/kg/hr .[id number] PRN 5.647 mls/hr Sedation Administration Protocol 0.2 MCG/KG/HR Metronidazole 500 mg in 100 mls @ 100 mls/hr 03/20/17 14:00 03/21/17 05:21 Flagyl IVPB 100 mls/hr Q8 MARICHUY Administration Protocol Midazolam 100 mg/100ml in NS 100 mg in 100 mls @ 1 mls/hr 03/20/17 17:19 20:00 Midazolam 100 Mg/100ml In Ns IV 4 mg/hr .Q24H PRN 4 mls/hr Sedation Titration Protocol 1 MG/HR Pantoprazole Sodium 40 mg 03/20/17 22:00 03/20/17 21:55 Protonix Inj IVP 40 mg Q12 MARICHUY Administration - Patient Studies Lab Studies: Microbiology Studies 03/16/17 22:00 Blood Culture - Preliminary Blood-Venous NO GROWTH AFTER 4 DAYS 03/16/17 21:30 Blood Culture - Preliminary Blood-Venous NO GROWTH AFTER 4 DAYS Lab Studies 03/20/17 03/20/17 03/20/17 Range/Units 21:48 16:14 12:10 WBC 16.0 H (4.5-11.0) 10^3/ul RBC 3.66 (3.5-6.1) 10^6/uL Hgb 10.6 L (14.0-18.0) g/dL Hct 31.7 L (42.0-52.0) % MCV 86.6 (80.0-105.0) fl MCH 29.0 (25.0-35.0) pg MCHC 33.4 (31.0-37.0) g/dl RDW 13.9 (11.5-14.5) % Plt Count 225 (120.0-450.0) 10^3/uL MPV 10.4 (7.0-11.0) fl Gran % 75.2 H (50.0-68.0) % Lymph % (Auto) 13.6 L (22.0-35.0) % [place] % (Auto) 7.9 H (1.0-6.0) % Eos % (Auto) 3.1 (1.5-5.0) % Baso % (Auto) 0.2 (0.0-3.0) % Gran # 12.03 H (1.4-6.5) Lymph # 2.2 (1.2-3.4) [place] # 1.3 H (0.1-0.6) Eos # 0.5 (0.0-0.7) Baso # 0.03 (0.0-2.0) K/mm3 PT (9.9-11.8) Seconds INR (0.93-1.08) APTT (23.7-30.8) Seconds Sodium (132-148) mmol/L Potassium (3.6-5.0) mmol/L Chloride (98-107) mmol/L Carbon Dioxide (21-33) mmol/L Anion Gap (10-20) BUN (7-21) mg/dL Creatinine (0.8-1.5) mg/dL Est GFR ( Amer) Est GFR (Non-Af Amer) POC Glucose (mg/dL) 95 120 H (65-110) mg/dL Random Glucose (70-110) mg/dL Calcium (8.4-10.5) mg/dL Phosphorus (2.5-4.5) mg/dL Magnesium (1.7-2.2) mg/dL Total Bilirubin (0.2-1.3) mg/dL AST (17-59) U/L ALT (7-56) U/L Alkaline Phosphatase (38-126) U/L Total Protein (5.8-8.3) g/dL Albumin (3.0-4.8) g/dL Globulin gm/dL Albumin/Globulin Ratio (1.1-1.8) Blood Type Blood Type Confirm Antibody Screen BBK History Checked 03/20/17 03/20/17 03/20/17 Range/Units 11:35 09:57 09:00 WBC (4.5-11.0) 10^3/ul RBC (3.5-6.1) 10^6/uL Hgb (14.0-18.0) g/dL Hct (42.0-52.0) % MCV (80.0-105.0) fl MCH (25.0-35.0) pg MCHC (31.0-37.0) g/dl RDW (11.5-14.5) % Plt Count (120.0-450.0) 10^3/uL MPV (7.0-11.0) fl Gran % (50.0-68.0) % Lymph % (Auto) (22.0-35.0) % [place] % (Auto) (1.0-6.0) % Eos % (Auto) (1.5-5.0) % Baso % (Auto) (0.0-3.0) % Gran # (1.4-6.5) Lymph # (1.2-3.4) [place] # (0.1-0.6) Eos # (0.0-0.7) Baso # (0.0-2.0) K/mm3 PT (9.9-11.8) Seconds INR (0.93-1.08) APTT (23.7-30.8) Seconds Sodium (132-148) mmol/L Potassium (3.6-5.0) mmol/L Chloride (98-107) mmol/L Carbon Dioxide (21-33) mmol/L Anion Gap (10-20) BUN (7-21) mg/dL Creatinine (0.8-1.5) mg/dL Est GFR ( Amer) Est GFR (Non-Af Amer) POC Glucose (mg/dL) 119 H (65-110) mg/dL Random Glucose (70-110) mg/dL Calcium (8.4-10.5) mg/dL Phosphorus (2.5-4.5) mg/dL Magnesium (1.7-2.2) mg/dL Total Bilirubin (0.2-1.3) mg/dL AST (17-59) U/L ALT (7-56) U/L Alkaline Phosphatase (38-126) U/L Total Protein (5.8-8.3) g/dL Albumin (3.0-4.8) g/dL Globulin gm/dL Albumin/Globulin Ratio (1.1-1.8) Blood Type A POSITIVE Blood Type Confirm A POSITIVE Antibody Screen Negative BBK History Checked No verified bt 03/20/17 03/20/17 03/20/17 Range/Units 05:30 05:30 05:30 WBC 15.2 H (4.5-11.0) 10^3/ul RBC 3.44 L (3.5-6.1) 10^6/uL Hgb 9.9 L (14.0-18.0) g/dL Hct 29.5 L (42.0-52.0) % MCV 85.8 (80.0-105.0) fl MCH 28.8 (25.0-35.0) pg MCHC 33.6 (31.0-37.0) g/dl RDW 13.9 (11.5-14.5) % Plt Count 200 (120.0-450.0) 10^3/uL MPV 9.6 (7.0-11.0) fl Gran % 74.0 H (50.0-68.0) % Lymph % (Auto) 15.0 L (22.0-35.0) % [place] % (Auto) 7.2 H (1.0-6.0) % Eos % (Auto) 3.5 (1.5-5.0) % Baso % (Auto) 0.3 (0.0-3.0) % Gran # 11.27 H (1.4-6.5) Lymph # 2.3 (1.2-3.4) [place] # 1.1 H (0.1-0.6) Eos # 0.5 (0.0-0.7) Baso # 0.04 (0.0-2.0) K/mm3 PT 12.0 H (9.9-11.8) Seconds INR 1.11 H (0.93-1.08) APTT 24.0 (23.7-30.8) Seconds Sodium 142 (132-148) mmol/L Potassium 3.0 L (3.6-5.0) mmol/L Chloride 108 H (98-107) mmol/L Carbon Dioxide 22 (21-33) mmol/L Anion Gap 15 (10-20) BUN 24 H (7-21) mg/dL Creatinine 0.8 (0.8-1.5) mg/dL Est GFR ( Amer) > 60 Est GFR (Non-Af Amer) > 60 POC Glucose (mg/dL) (65-110) mg/dL Random Glucose 140 H (70-110) mg/dL Calcium 8.9 (8.4-10.5) mg/dL Phosphorus 3.2 (2.5-4.5) mg/dL Magnesium 1.5 L (1.7-2.2) mg/dL Total Bilirubin 1.3 (0.2-1.3) mg/dL AST 61 H (17-59) U/L ALT 73 H (7-56) U/L Alkaline Phosphatase 106 (38-126) U/L Total Protein 7.0 (5.8-8.3) g/dL Albumin 3.5 (3.0-4.8) g/dL Globulin 3.5 gm/dL Albumin/Globulin Ratio 1.0 L (1.1-1.8) Blood Type Blood Type Confirm Antibody Screen BBK History Checked 03/20/17 03/20/17 03/19/17 Range/Units 03:49 01:06 20:34 WBC (4.5-11.0) 10^3/ul RBC (3.5-6.1) 10^6/uL Hgb (14.0-18.0) g/dL Hct (42.0-52.0) % MCV (80.0-105.0) fl MCH (25.0-35.0) pg MCHC (31.0-37.0) g/dl RDW (11.5-14.5) % Plt Count (120.0-450.0) 10^3/uL MPV (7.0-11.0) fl Gran % (50.0-68.0) % Lymph % (Auto) (22.0-35.0) % [place] % (Auto) (1.0-6.0) % Eos % (Auto) (1.5-5.0) % Baso % (Auto) (0.0-3.0) % Gran # (1.4-6.5) Lymph # (1.2-3.4) [place] # (0.1-0.6) Eos # (0.0-0.7) Baso # (0.0-2.0) K/mm3 PT (9.9-11.8) Seconds INR (0.93-1.08) APTT (23.7-30.8) Seconds Sodium (132-148) mmol/L Potassium (3.6-5.0) mmol/L Chloride (98-107) mmol/L Carbon Dioxide (21-33) mmol/L Anion Gap (10-20) BUN (7-21) mg/dL Creatinine (0.8-1.5) mg/dL Est GFR ( Amer) Est GFR (Non-Af Amer) POC Glucose (mg/dL) 136 H 131 H 95 (65-110) mg/dL Random Glucose (70-110) mg/dL Calcium (8.4-10.5) mg/dL Phosphorus (2.5-4.5) mg/dL Magnesium (1.7-2.2) mg/dL Total Bilirubin (0.2-1.3) mg/dL AST (17-59) U/L ALT (7-56) U/L Alkaline Phosphatase (38-126) U/L Total Protein (5.8-8.3) g/dL Albumin (3.0-4.8) g/dL Globulin gm/dL Albumin/Globulin Ratio (1.1-1.8) Blood Type Blood Type Confirm Antibody Screen BBK History Checked Laboratory Results - last 24 hr 03/19/17 03/20/17 03/20/17 20:34 01:06 03:49 WBC RBC Hgb Hct MCV MCH MCHC RDW Plt Count MPV Gran % Lymph % (Auto) [place] % (Auto) Eos % (Auto) Baso % (Auto) Gran # Lymph # [place] # Eos # Baso # PT INR APTT Sodium Potassium Chloride Carbon Dioxide Anion Gap BUN Creatinine Est GFR ( Amer) Est GFR (Non-Af Amer) POC Glucose (mg/dL) 95 131 H 136 H Random Glucose Calcium Phosphorus Magnesium Total Bilirubin AST ALT Alkaline Phosphatase Total Protein Albumin Globulin Albumin/Globulin Ratio Blood Type Blood Type Confirm Antibody Screen BBK History Checked 03/20/17 03/20/17 03/20/17 05:30 05:30 05:30 WBC 15.2 H RBC 3.44 L Hgb 9.9 L Hct 29.5 L MCV 85.8 MCH 28.8 MCHC 33.6 RDW 13.9 Plt Count 200 MPV 9.6 Gran % 74.0 H Lymph % (Auto) 15.0 L [place] % (Auto) 7.2 H Eos % (Auto) 3.5 Baso % (Auto) 0.3 Gran # 11.27 H Lymph # 2.3 [place] # 1.1 H Eos # 0.5 Baso # 0.04 PT 12.0 H INR 1.11 H APTT 24.0 Sodium 142 Potassium 3.0 L Chloride 108 H Carbon Dioxide 22 Anion Gap 15 BUN 24 H Creatinine 0.8 Est GFR ( Amer) > 60 Est GFR (Non-Af Amer) > 60 POC Glucose (mg/dL) Random Glucose 140 H Calcium 8.9 Phosphorus 3.2 Magnesium 1.5 L Total Bilirubin 1.3 AST 61 H ALT 73 H Alkaline Phosphatase 106 Total Protein 7.0 Albumin 3.5 Globulin 3.5 Albumin/Globulin Ratio 1.0 L Blood Type Blood Type Confirm Antibody Screen BBK History Checked 03/20/17 03/20/17 03/20/17 09:00 09:57 11:35 WBC RBC Hgb Hct MCV MCH MCHC RDW Plt Count MPV Gran % Lymph % (Auto) [place] % (Auto) Eos % (Auto) Baso % (Auto) Gran # Lymph # [place] # Eos # Baso # PT INR APTT Sodium Potassium Chloride Carbon Dioxide Anion Gap BUN Creatinine Est GFR ( Amer) Est GFR (Non-Af Amer) POC Glucose (mg/dL) 119 H Random Glucose Calcium Phosphorus Magnesium Total Bilirubin AST ALT Alkaline Phosphatase Total Protein Albumin Globulin Albumin/Globulin Ratio Blood Type A POSITIVE Blood Type Confirm A POSITIVE Antibody Screen Negative BBK History Checked No verified bt 03/20/17 03/20/17 03/20/17 12:10 16:14 21:48 WBC 16.0 H RBC 3.66 Hgb 10.6 L Hct 31.7 L MCV 86.6 MCH 29.0 MCHC 33.4 RDW 13.9 Plt Count 225 MPV 10.4 Gran % 75.2 H Lymph % (Auto) 13.6 L [place] % (Auto) 7.9 H Eos % (Auto) 3.1 Baso % (Auto) 0.2 Gran # 12.03 H Lymph # 2.2 [place] # 1.3 H Eos # 0.5 Baso # 0.03 PT INR APTT Sodium Potassium Chloride Carbon Dioxide Anion Gap BUN Creatinine Est GFR ( Amer) Est GFR (Non-Af Amer) POC Glucose (mg/dL) 120 H 95 Random Glucose Calcium Phosphorus Magnesium Total Bilirubin AST ALT Alkaline Phosphatase Total Protein Albumin Globulin Albumin/Globulin Ratio Blood Type Blood Type Confirm Antibody Screen BBK History Checked Fingerstick Blood Sugar Results: 129 Review of Systems - Review of Systems Systems not reviewed;Unavailable: Intubated Critical Care Progress Note - Nutrition Nutrition: Nutrition Category Date Time Status NPO Diet [DIET] Diets 03/14/17 Breakfast Ordered Assessment/Plan - Assessment and Plan (Free Text) Assessment: This is a 36 yo M with past medical history of substance abuse, depression, bipolar disorder, hypertension, anxiety disorder that presented with cardiac arrest in the field (downtime unknown) due to multi-drug overdose, with two further episodes of cardiac arrest on arrival, and witnessed seizure prior to initiation of increased sedation and paralytics. Remains off paralytics, but remains on high doses of sedatives due to multiple witnessed seizures. Pending Trach and G-tube by surgery, then [facility]. Prognosis remains poor given persistent seizure episodes despite high-dose sedating medications, but family continues to wish to pursue all measures. Plan: Neuro: -currently sedated on Propofol and Versed, d/c'ed Precedex; seizing every time he is weaned, and has had breakthrough seizures as well, indicative of very poor prognosis -weaned from Nimbex, off >48 hours, if becomes tachypnic and fighting ventilator and unable to control with increased sedation, may need to reparalyze -MRI brain notable for likely anoxic injury in thalamix area bilaterally -No longer actively cooling, maintain normothermia -Urine toxicology positive for opiates, barbiturates and benzos -Seizure precautions, ppx with Keppra 1000mg IV q12, Dilantin TID as per Neuro -Neurology consulted - Dr. Rene, appreciate all recs; poor prognosis given burst suppression pattern on EEG with seizure when weaned from sedation -Poison control following Pulm: -Satting 95-100%, ABG this AM reviewed, decreased paO2 and mild alkalosis but otherwise unchanged -CXR this AM reviewed, mildly improved R base, otherwise unchanged -Currently on PRVC, tolerating pressure support, continue to monitor Cardio: -Off all pressor support >7 days, maintaining MAP > 65 consistently -Tachycardic today to 110's, possibly rebound from precedex d/c -Troponins increased from <0.01 to 0.13 on admission -most recent EKG 03/13, notable for sinus halina to 48 and prolonged QTc at 537 ( unsurprising in setting of multi-drug abuse) -Cardiology consulted - Dr. Anderson -Echo ordered, notable for EF 54%, normal size/wall thickness LV, flattened septum, mild Pulm HTN/TR, mild RV dilation GI: -NPO -NGT placed, pending Gastrostomy tube placement, GI prophylaxis with protonix -LFTs improving -s/p x3 dosing of Acetadote as per Poison Control, no additional doses ordered -coffee-ground emesis yesterday, 600cc drainage after NGT set to suction; no free air under the diaphragm or obstruction on Abd CXR; H Pylori antigen test ordered, empiric coverage with Flagyl, Protonix now BID Renal: -Cr improving, today -Hypernatremia resolved, Na today 144; free water flushes stopped due to GI bleed -Will continue to monitor and treat electrolyte abnormalities as indicated; persistently low K requiring chronic repletion -Monitor I's and O's -Nephro following, appreciate all recs Endo: -Fingersticks q4h -Maintain euglycemia between 140-180's -Stress dose steroids discontinued ID: -multiple Blood and urine cultures drawn, remain negative -Most recent sputum (03/16) positive for light growth yeast, all other sputum cultures negative -Patient was empirically covered with Cefepime, Levofloxacin, and Vanco; all now d/c -Mild temperature overnight, Tmax 100.2F Heme: -Hgb improved to, stool occult pending, iron panel wnl -SCDs for DVT ppx -Coags stable, INR 1.14 today Dispo: ICU, intubated/sedated, s/p seizure when weaning sedation, s/p EEG with burst-suppression pattern, new GI bleed suspected 2/2 ulceration from NGT; poor prognosis, pending Trach/PEG, prognosis very poor FEN: NPO, NS with KCl 40mEq at 100cc/hr Access: Peripheral IVs Consults: Neuro, Cardio, Nephro, Poison Control, Surgery Ppx: Protonix covers for GI, SCDs for DVT Patient seen, examined, and reviewed with attending, Dr. Bush <Rachelle JONES,[facility] - Last Filed: 03/21/17 11:27> CCU Objective - Vital Signs / Intake & Output Vital Signs (Last 4 hours): Vital Signs Temp Pulse BP Pulse Ox 03/21/17 09:40 106 H 99 03/21/17 09:30 108 H 99 03/21/17 09:20 98 H 100 03/21/17 09:10 104 H 100 03/21/17 09:00 109 H 171/108 H 100 03/21/17 08:50 107 H 100 03/21/17 08:40 109 H 100 03/21/17 08:30 112 H 100 03/21/17 08:20 107 H 100 03/21/17 08:10 107 H 100 03/21/17 08:00 100.1 F H 106 H 163/102 H 100 03/21/17 07:50 105 H 100 03/21/17 07:40 107 H 100 03/21/17 07:30 106 H 100 03/21/17 07:20 95 H 100 03/21/17 07:10 98 H 100 03/21/17 07:00 98 H 154/100 H 100 Intake and Output (Last 8hrs): Intake & Output 03/20/17 03/21/17 03/21/17 22:59 06:59 14:59 Intake Total 2898 1950 200 Output Total 2650 2050 Balance 248 -100 200 Weight 228 lb 11.2 oz Intake: IV 2898 1950 200 Left Antecubital 550 450 Left Hand 1950 1200 Oral 0 Output: Gastric Drainage 850 Urethral (Armenta) 850 Urine 1800 0 Urethral (Armenta) 1800 2050 Other: # Bowel Movements Urethral (Armenta) 1 - Medications Active Medications: Active Medications Generic Name Dose Route Start Last Admin Trade Name Freq PRN Reason Stop Dose Admin Albuterol/Ipratropium 3 ml 03/13/17 15:07 03/13/17 15:45 Duoneb 3 Mg/0.5 Mg (3 Ml) Ud IH 3 ml Q2H PRN Administration Shortness of Breath Albuterol/Ipratropium 3 ml 03/13/17 20:00 03/21/17 07:21 Duoneb 3 Mg/0.5 Mg (3 Ml) Ud IH 3 ml [id number] MARICHUY Administration Chlorhexidine Gluconate 15 ml 03/13/17 10:00 03/21/17 09:51 Peridex PO 15 ml BID MARICHUY Administration Propofol 1,000 mg in 100 mls @ 3.674 mls/hr 03/12/17 07:41 03/21/17 09:54 Diprivan IV 57.15 mcg/kg/min .Q24H PRN 41.995 mls/hr TITRATE PER MD ORDER Administration Protocol 5 MCG/KG/MIN Levetiracetam 1,000 mg/ Sodium 110 mls @ 460 mls/hr 03/12/17 22:00 03/21/17 09:51 Chloride IV 460 mls/hr Q12 MARICHUY Administration Potassium Chloride 40 meq/ 1,020 mls @ 100 mls/hr 03/17/17 21:40 03/21/17 09: 50 Sodium Chloride IV 100 mls/hr .[id number] MARICHUY Administration Phenytoin 100 mg/ Sodium 52 mls @ 104 mls/hr 03/18/17 10:00 03/21/17 09:50 Chloride IVPB 104 mls/hr TID MARICHUY Administration Metronidazole 500 mg in 100 mls @ 100 mls/hr 03/20/17 14:00 03/21/17 05:21 Flagyl IVPB 100 mls/hr Q8 MARICHUY Administration Protocol Midazolam 100 mg/100ml in NS 100 mg in 100 mls @ 1 mls/hr 03/20/17 17:19 20:00 Midazolam 100 Mg/100ml In Ns IV 4 mg/hr .Q24H PRN 4 mls/hr Sedation Titration Protocol 1 MG/HR Potassium Chloride 20 meq in 100 mls @ 50 mls/hr 03/21/17 10:30 03/21/17 10: 56 Potassium Chloride 20 Meq/100 Ml IVPB 03/21/17 14:29 50 mls/hr Q2H MARICHUY Administration Magnesium Sulfate 2 gm/ Sodium 104 mls @ 102 mls/hr 03/21/17 10:18 03/21/17 10:55 Chloride IVPB 03/21/17 11:19 102 mls/hr ONCE ONE Administration Pantoprazole Sodium 40 mg 03/20/17 22:00 03/21/17 09:52 Protonix Inj IVP 40 mg Q12 MARICHUY Administration - Patient Studies Lab Studies: Microbiology Studies 03/16/17 22:00 Blood Culture - Preliminary Blood-Venous NO GROWTH AFTER 4 DAYS 03/16/17 21:30 Blood Culture - Preliminary Blood-Venous NO GROWTH AFTER 4 DAYS Lab Studies 03/21/17 03/21/17 03/21/17 Range/Units 06:30 05:30 05:30 WBC (4.5-11.0) 10^3/ul RBC (3.5-6.1) 10^6/uL Hgb (14.0-18.0) g/dL Hct (42.0-52.0) % MCV (80.0-105.0) fl MCH (25.0-35.0) pg MCHC (31.0-37.0) g/dl RDW (11.5-14.5) % Plt Count (120.0-450.0) 10^3/uL MPV (7.0-11.0) fl Gran % (50.0-68.0) % Lymph % (Auto) (22.0-35.0) % [place] % (Auto) (1.0-6.0) % Eos % (Auto) (1.5-5.0) % Baso % (Auto) (0.0-3.0) % Gran # (1.4-6.5) Lymph # (1.2-3.4) [place] # (0.1-0.6) Eos # (0.0-0.7) Baso # (0.0-2.0) K/mm3 PT 12.3 H (9.9-11.8) Seconds INR 1.14 H (0.93-1.08) APTT 22.4 L (23.7-30.8) Seconds pCO2 28 L (35-45) mm/Hg pO2 96.0 (80-100) mm/Hg HCO3 21.8 (21-28) mmol/L ABG pH 7.50 H (7.35-7.45) ABG Total CO2 22.7 (22-28) mmol.L ABG O2 Saturation 98.8 H (95-98) % ABG O2 Content 11.2 L (15-23) ML/dl ABG Base Excess -0.9 (-2.0-3.0) mmol/L ABG Hemoglobin 8.2 L (11.7-17.4) g/dL ABG Carboxyhemoglobin 1.9 H (0.5-1.5) % POC ABG HHb (Measured) 1.2 (0-5) % ABG Methemoglobin 1.1 (0.0-3.0) % ABG O2 Capacity 11.3 L (16-24) mL/dl Hgb O2 Saturation 95.8 (95.0-98.0) % FiO2 40.0 % Sodium 144 (132-148) mmol/L Potassium 3.1 L (3.6-5.0) mmol/L Chloride 110 H (98-107) mmol/L Carbon Dioxide 23 (21-33) mmol/L Anion Gap 14 (10-20) BUN 16 (7-21) mg/dL Creatinine 0.7 L (0.8-1.5) mg/dL Est GFR ( Amer) > 60 Est GFR (Non-Af Amer) > 60 POC Glucose (mg/dL) (65-110) mg/dL Random Glucose 113 H (70-110) mg/dL Calcium 8.8 (8.4-10.5) mg/dL Phosphorus 3.8 (2.5-4.5) mg/dL Magnesium 1.6 L (1.7-2.2) mg/dL Total Bilirubin 1.2 (0.2-1.3) mg/dL AST 76 H D (17-59) U/L ALT 75 H (7-56) U/L Alkaline Phosphatase 110 (38-126) U/L Total Protein 7.4 (5.8-8.3) g/dL Albumin 3.6 (3.0-4.8) g/dL Globulin 3.8 gm/dL Albumin/Globulin Ratio 0.9 L (1.1-1.8) 03/21/17 03/20/17 03/20/17 Range/Units 05:30 21:48 16:14 WBC 14.5 H (4.5-11.0) 10^3/ul RBC 3.57 (3.5-6.1) 10^6/uL Hgb 10.3 L (14.0-18.0) g/dL Hct 30.6 L (42.0-52.0) % MCV 85.7 (80.0-105.0) fl MCH 28.9 (25.0-35.0) pg MCHC 33.7 (31.0-37.0) g/dl RDW 13.8 (11.5-14.5) % Plt Count 225 (120.0-450.0) 10^3/uL MPV 10.2 (7.0-11.0) fl Gran % 72.5 H (50.0-68.0) % Lymph % (Auto) 16.4 L (22.0-35.0) % [place] % (Auto) 9.3 H (1.0-6.0) % Eos % (Auto) 1.7 (1.5-5.0) % Baso % (Auto) 0.1 (0.0-3.0) % Gran # 10.49 H (1.4-6.5) Lymph # 2.4 (1.2-3.4) [place] # 1.3 H (0.1-0.6) Eos # 0.3 (0.0-0.7) Baso # 0.02 (0.0-2.0) K/mm3 PT (9.9-11.8) Seconds INR (0.93-1.08) APTT (23.7-30.8) Seconds pCO2 (35-45) mm/Hg pO2 (80-100) mm/Hg HCO3 (21-28) mmol/L ABG pH (7.35-7.45) ABG Total CO2 (22-28) mmol.L ABG O2 Saturation (95-98) % ABG O2 Content (15-23) ML/dl ABG Base Excess (-2.0-3.0) mmol/L ABG Hemoglobin (11.7-17.4) g/dL ABG Carboxyhemoglobin (0.5-1.5) % POC ABG HHb (Measured) (0-5) % ABG Methemoglobin (0.0-3.0) % ABG O2 Capacity (16-24) mL/dl Hgb O2 Saturation (95.0-98.0) % FiO2 % Sodium (132-148) mmol/L Potassium (3.6-5.0) mmol/L Chloride (98-107) mmol/L Carbon Dioxide (21-33) mmol/L Anion Gap (10-20) BUN (7-21) mg/dL Creatinine (0.8-1.5) mg/dL Est GFR ( Amer) Est GFR (Non-Af Amer) POC Glucose (mg/dL) 95 120 H (65-110) mg/dL Random Glucose (70-110) mg/dL Calcium (8.4-10.5) mg/dL Phosphorus (2.5-4.5) mg/dL Magnesium (1.7-2.2) mg/dL Total Bilirubin (0.2-1.3) mg/dL AST (17-59) U/L ALT (7-56) U/L Alkaline Phosphatase (38-126) U/L Total Protein (5.8-8.3) g/dL Albumin (3.0-4.8) g/dL Globulin gm/dL Albumin/Globulin Ratio (1.1-1.8) 03/20/17 03/20/17 Range/Units 12:10 11:35 WBC 16.0 H (4.5-11.0) 10^3/ul RBC 3.66 (3.5-6.1) 10^6/uL Hgb 10.6 L (14.0-18.0) g/dL Hct 31.7 L (42.0-52.0) % MCV 86.6 (80.0-105.0) fl MCH 29.0 (25.0-35.0) pg MCHC 33.4 (31.0-37.0) g/dl RDW 13.9 (11.5-14.5) % Plt Count 225 (120.0-450.0) 10^3/uL MPV 10.4 (7.0-11.0) fl Gran % 75.2 H (50.0-68.0) % Lymph % (Auto) 13.6 L (22.0-35.0) % Sioux % (Auto) 7.9 H (1.0-6.0) % Eos % (Auto) 3.1 (1.5-5.0) % Baso % (Auto) 0.2 (0.0-3.0) % Gran # 12.03 H (1.4-6.5) Lymph # 2.2 (1.2-3.4) Sioux # 1.3 H (0.1-0.6) Eos # 0.5 (0.0-0.7) Baso # 0.03 (0.0-2.0) K/mm3 PT (9.9-11.8) Seconds INR (0.93-1.08) APTT (23.7-30.8) Seconds pCO2 (35-45) mm/Hg pO2 (80-100) mm/Hg HCO3 (21-28) mmol/L ABG pH (7.35-7.45) ABG Total CO2 (22-28) mmol.L ABG O2 Saturation (95-98) % ABG O2 Content (15-23) ML/dl ABG Base Excess (-2.0-3.0) mmol/L ABG Hemoglobin (11.7-17.4) g/dL ABG Carboxyhemoglobin (0.5-1.5) % POC ABG HHb (Measured) (0-5) % ABG Methemoglobin (0.0-3.0) % ABG O2 Capacity (16-24) mL/dl Hgb O2 Saturation (95.0-98.0) % FiO2 % Sodium (132-148) mmol/L Potassium (3.6-5.0) mmol/L Chloride (98-107) mmol/L Carbon Dioxide (21-33) mmol/L Anion Gap (10-20) BUN (7-21) mg/dL Creatinine (0.8-1.5) mg/dL Est GFR ( Amer) Est GFR (Non-Af Amer) POC Glucose (mg/dL) 119 H (65-110) mg/dL Random Glucose (70-110) mg/dL Calcium (8.4-10.5) mg/dL Phosphorus (2.5-4.5) mg/dL Magnesium (1.7-2.2) mg/dL Total Bilirubin (0.2-1.3) mg/dL AST (17-59) U/L ALT (7-56) U/L Alkaline Phosphatase (38-126) U/L Total Protein (5.8-8.3) g/dL Albumin (3.0-4.8) g/dL Globulin gm/dL Albumin/Globulin Ratio (1.1-1.8) Laboratory Results - last 24 hr 03/20/17 03/20/17 03/20/17 11:35 12:10 16:14 WBC 16.0 H RBC 3.66 Hgb 10.6 L Hct 31.7 L MCV 86.6 MCH 29.0 MCHC 33.4 RDW 13.9 Plt Count 225 MPV 10.4 Gran % 75.2 H Lymph % (Auto) 13.6 L Sioux % (Auto) 7.9 H Eos % (Auto) 3.1 Baso % (Auto) 0.2 Gran # 12.03 H Lymph # 2.2 Sioux # 1.3 H Eos # 0.5 Baso # 0.03 PT INR APTT pCO2 pO2 HCO3 ABG pH ABG Total CO2 ABG O2 Saturation ABG O2 Content ABG Base Excess ABG Hemoglobin ABG Carboxyhemoglobin POC ABG HHb (Measured) ABG Methemoglobin ABG O2 Capacity Hgb O2 Saturation FiO2 Sodium Potassium Chloride Carbon Dioxide Anion Gap BUN Creatinine Est GFR ( Amer) Est GFR (Non-Af Amer) POC Glucose (mg/dL) 119 H 120 H Random Glucose Calcium Phosphorus Magnesium Total Bilirubin AST ALT Alkaline Phosphatase Total Protein Albumin Globulin Albumin/Globulin Ratio 03/20/17 03/21/17 03/21/17 21:48 05:30 05:30 WBC 14.5 H RBC 3.57 Hgb 10.3 L Hct 30.6 L MCV 85.7 MCH 28.9 MCHC 33.7 RDW 13.8 Plt Count 225 MPV 10.2 Gran % 72.5 H Lymph % (Auto) 16.4 L Sioux % (Auto) 9.3 H Eos % (Auto) 1.7 Baso % (Auto) 0.1 Gran # 10.49 H Lymph # 2.4 Sioux # 1.3 H Eos # 0.3 Baso # 0.02 PT INR APTT pCO2 pO2 HCO3 ABG pH ABG Total CO2 ABG O2 Saturation ABG O2 Content ABG Base Excess ABG Hemoglobin ABG Carboxyhemoglobin POC ABG HHb (Measured) ABG Methemoglobin ABG O2 Capacity Hgb O2 Saturation FiO2 Sodium 144 Potassium 3.1 L Chloride 110 H Carbon Dioxide 23 Anion Gap 14 BUN 16 Creatinine 0.7 L Est GFR ( Amer) > 60 Est GFR (Non-Af Amer) > 60 POC Glucose (mg/dL) 95 Random Glucose 113 H Calcium 8.8 Phosphorus 3.8 Magnesium 1.6 L Total Bilirubin 1.2 AST 76 H D ALT 75 H Alkaline Phosphatase 110 Total Protein 7.4 Albumin 3.6 Globulin 3.8 Albumin/Globulin Ratio 0.9 L 03/21/17 03/21/17 05:30 06:30 WBC RBC Hgb Hct MCV MCH MCHC RDW Plt Count MPV Gran % Lymph % (Auto) Sioux % (Auto) Eos % (Auto) Baso % (Auto) Gran # Lymph # Sioux # Eos # Baso # PT 12.3 H INR 1.14 H APTT 22.4 L pCO2 28 L pO2 96.0 HCO3 21.8 ABG pH 7.50 H ABG Total CO2 22.7 ABG O2 Saturation 98.8 H ABG O2 Content 11.2 L ABG Base Excess -0.9 ABG Hemoglobin 8.2 L ABG Carboxyhemoglobin 1.9 H POC ABG HHb (Measured) 1.2 ABG Methemoglobin 1.1 ABG O2 Capacity 11.3 L Hgb O2 Saturation 95.8 FiO2 40.0 Sodium Potassium Chloride Carbon Dioxide Anion Gap BUN Creatinine Est GFR ( Amer) Est GFR (Non-Af Amer) POC Glucose (mg/dL) Random Glucose Calcium Phosphorus Magnesium Total Bilirubin AST ALT Alkaline Phosphatase Total Protein Albumin Globulin Albumin/Globulin Ratio Critical Care Progress Note - Nutrition Nutrition: Nutrition Category Date Time Status NPO Diet [DIET] Diets 03/14/17 Breakfast Ordered Attending/Attestation - Attestation I have personally seen and examined this patient.: Yes I have fully participated in the care of the patient.: Yes I have reviewed all pertinent clinical information: Yes Notes (Text): 03/21/17 10:59 36 y/o M w/ Anoxic injury s/p Cardiac arrest x 3. Slowly resolving neuro function , now found to have cont seizures . On dilantin & Keppra , Propofol and Versed and continues to have twitching and myclonus jerks.may add Valproic acid Would need cont EEg monitoring and possible Pentobarb coma and monitoring. Case was discussed w/ [facility] about possible transfer for neuro monitoring for STATUS. Pt was refused by [facility] center by Dr. Arrington. Will try to contact another center for transfer and d/w family. poor prognosis cc time 55 min
[2017-03-21 05:57] LABS: INR 1.14 (0.93-1.08); PARTIAL THROMBOPLASTIN TIME 22.4 Seconds (23.7-30.8)
[2017-03-21 06:04] LABS: ALB/GLOB RATIO 0.9 (1.1-1.8); ALKALINE PHOSPHATASE 110 U/L (38-126); ALT/SGPT 75 U/L (7-56); AST/SGOT 76 U/L (17-59); BILIRUBIN,TOTAL 1.2 mg/dL (0.2-1.3); BLOOD UREA NITROGEN 16 mg/dL (7-21); CALCIUM 8.8 mg/dL (8.4-10.5); CARBON DIOXIDE 23 mmol/L (21-33); CHLORIDE 110 mmol/L (98-107); GFR AFRICAN-AMERICAN > 60; GLUCOSE,RANDOM 113 mg/dL (70-110); MAGNESIUM 1.6 mg/dL (1.7-2.2); PHOSPHOROUS 3.8 mg/dL (2.5-4.5); POTASSIUM 3.1 mmol/L (3.6-5.0); SODIUM 144 mmol/L (132-148); TOTAL PROTEIN 7.4 g/dL (5.8-8.3)
[2017-03-21 06:55] LABS: ARTERIAL BLOOD GAS HCO3 21.8 mmol/L (21-28); ARTERIAL BLOOD GAS O2 CAPACITY 11.3 mL/dl (16-24); ARTERIAL BLOOD GAS O2 CONTENT 11.2 ML/dl (15-23); ARTERIAL BLOOD HGB O2 SAT 95.8 % (95.0-98.0); CARBOXYHEMOGLOBIN 1.9 % (0.5-1.5); HHB 1.2 % (0-5); METHEMOGLOBIN 1.1 % (0.0-3.0)
--- NOTE | 2017-03-21 08:26 | CP.PCM.PN ---
Subjective - Date & Time of Evaluation Date of Evaluation: 03/21/17 Time of Evaluation: 08:00 - Subjective Subjective: General Surgery Note for Dr. Reyes Patient seen and examined at bedside. No acute event overnight. He is intubated and on vent support. Patient not responding to verbal or tactile stimuli. ROS unobtainable. Objective - Vital Signs/Intake and Output Vital Signs (last 24 hours): Temp Pulse Resp BP Pulse Ox 99.8 F H 106 H 26 H 154/100 H 100 03/21/17 04:00 03/21/17 07:30 03/20/17 07:50 03/21/17 07:00 03/21/17 07:30 Intake and Output: 03/21/17 03/21/17 06:59 18:59 Intake Total 2248 100 Output Total 2050 Balance 198 100 - Medications Medications: Current Medications Albuterol/Ipratropium (Duoneb 3 Mg/0.5 Mg (3 Ml) Ud) 3 ml IH Q2H PRN PRN Reason: Shortness of Breath Last Admin: 03/13/17 15:45 Dose: 3 ml Albuterol/Ipratropium (Duoneb 3 Mg/0.5 Mg (3 Ml) Ud) 3 ml IH [id number] [facility] Last Admin: 03/21/17 07:21 Dose: 3 ml Chlorhexidine Gluconate (Peridex) 15 ml PO BID [facility] Last Admin: 03/20/17 17:13 Dose: 15 ml Propofol (Diprivan) 1,000 mg in 100 mls @ 3.674 mls/hr IV .Q24H PRN; Protocol; 5 MCG/KG/MIN PRN Reason: TITRATE PER MD ORDER Last Admin: 03/21/17 07:31 Dose: 57.15 mcg/kg/min, 41.995 mls/hr Levetiracetam 1,000 mg/ Sodium (Chloride) 110 mls @ 460 mls/hr IV Q12 [facility] Last Admin: 03/20/17 21:42 Dose: 460 mls/hr Potassium Chloride 40 meq/ (Sodium Chloride) 1,020 mls @ 100 mls/hr IV .[id number] [facility] Last Admin: 03/20/17 21:40 Dose: 100 mls/hr Phenytoin 100 mg/ Sodium (Chloride) 52 mls @ 104 mls/hr IVPB TID [facility] Last Admin: 03/20/17 17:13 Dose: 104 mls/hr Metronidazole (Flagyl) 500 mg in 100 mls @ 100 mls/hr IVPB Q8 [facility] PRN Reason: Protocol Last Admin: 03/21/17 05:21 Dose: 100 mls/hr Midazolam 100 mg/100ml in NS (Midazolam 100 Mg/100ml In Ns) 100 mg in 100 mls @ 1 mls/hr IV .Q24H PRN; Protocol; 1 MG/HR PRN Reason: Sedation Last Titration: 03/20/17 20:00 Dose: 4 mg/hr, 4 mls/hr Pantoprazole Sodium (Protonix Inj) 40 mg IVP Q12 [facility] Last Admin: 03/20/17 21:55 Dose: 40 mg - Labs Labs: 03/21/17 05:30 03/21/17 05:30 PT 12.3 Seconds (9.9-11.8) H 03/21/17 05:30 INR 1.14 (0.93-1.08) H 03/21/17 05:30 APTT 22.4 Seconds (23.7-30.8) L 03/21/17 05:30 - Constitutional Appears: No Acute Distress - Head Exam Head Exam: ATRAUMATIC, NORMOCEPHALIC - Eye Exam Eye Exam: Normal appearance - ENT Exam ENT Exam: Mucous Membranes Moist Additional comments: ET tube in place - Respiratory Exam Additional comments: intubated and on vent support - Cardiovascular Exam Cardiovascular Exam: REGULAR RHYTHM - GI/Abdominal Exam GI & Abdominal Exam: Soft. absent: Distended, Firm - Neurological Exam Neurological Exam: Altered - Psychiatric Exam Psychiatric exam: Flat Affect - Skin Skin Exam: Dry, Intact, Warm Assessment and Plan - Assessment and Plan (Free Text) Plan: 36 M s/p Cardiac arrest likely secondary to substance abuse; in persistent vegetative state secondary to anoxic brain injury. Surgery was consulted for tracheostomy and gastrostomy tube placement -Tracheostomy and gastrostomy tube placement scheduled in OR for Wednesday -Medically optimize patient -Management as per ICU -DW Dr. Eric Ferreira PGY1
--- NOTE | 2017-03-21 08:49 | CP.PCM.PN ---
<Zac Archer - Last Filed: 03/21/17 17:41> Subjective - Date & Time of Evaluation Date of Evaluation: 03/21/17 Time of Evaluation: 07:48 - Subjective Subjective: Patient seen and examined at bedside. Per nursing no acute events occurred overnight. ROS unobtainable due to current clinical condition. Objective - Vital Signs/Intake and Output Vital Signs (last 24 hours): Temp Pulse Resp BP Pulse Ox 99.8 F H 106 H 26 H 154/100 H 100 03/21/17 04:00 03/21/17 07:30 03/20/17 07:50 03/21/17 07:00 03/21/17 07:30 Intake and Output: 03/21/17 03/21/17 06:59 18:59 Intake Total 2248 100 Output Total 2050 Balance 198 100 - Medications Medications: Current Medications Albuterol/Ipratropium (Duoneb 3 Mg/0.5 Mg (3 Ml) Ud) 3 ml IH Q2H PRN PRN Reason: Shortness of Breath Last Admin: 03/13/17 15:45 Dose: 3 ml Albuterol/Ipratropium (Duoneb 3 Mg/0.5 Mg (3 Ml) Ud) 3 ml IH [id number] [facility] Last Admin: 03/21/17 07:21 Dose: 3 ml Chlorhexidine Gluconate (Peridex) 15 ml PO BID [facility] Last Admin: 03/20/17 17:13 Dose: 15 ml Propofol (Diprivan) 1,000 mg in 100 mls @ 3.674 mls/hr IV .Q24H PRN; Protocol; 5 MCG/KG/MIN PRN Reason: TITRATE PER MD ORDER Last Admin: 03/21/17 07:31 Dose: 57.15 mcg/kg/min, 41.995 mls/hr Levetiracetam 1,000 mg/ Sodium (Chloride) 110 mls @ 460 mls/hr IV Q12 [facility] Last Admin: 03/20/17 21:42 Dose: 460 mls/hr Potassium Chloride 40 meq/ (Sodium Chloride) 1,020 mls @ 100 mls/hr IV .[id number] [facility] Last Admin: 03/20/17 21:40 Dose: 100 mls/hr Phenytoin 100 mg/ Sodium (Chloride) 52 mls @ 104 mls/hr IVPB TID [facility] Last Admin: 03/20/17 17:13 Dose: 104 mls/hr Metronidazole (Flagyl) 500 mg in 100 mls @ 100 mls/hr IVPB Q8 [facility] PRN Reason: Protocol Last Admin: 03/21/17 05:21 Dose: 100 mls/hr Midazolam 100 mg/100ml in NS (Midazolam 100 Mg/100ml In Ns) 100 mg in 100 mls @ 1 mls/hr IV .Q24H PRN; Protocol; 1 MG/HR PRN Reason: Sedation Last Titration: 03/20/17 20:00 Dose: 4 mg/hr, 4 mls/hr Pantoprazole Sodium (Protonix Inj) 40 mg IVP Q12 [facility] Last Admin: 03/20/17 21:55 Dose: 40 mg - Labs Labs: 03/21/17 05:30 03/21/17 05:30 PT 12.3 Seconds (9.9-11.8) H 03/21/17 05:30 INR 1.14 (0.93-1.08) H 03/21/17 05:30 APTT 22.4 Seconds (23.7-30.8) L 03/21/17 05:30 - Head Exam Head Exam: ATRAUMATIC, NORMAL INSPECTION, NORMOCEPHALIC - Eye Exam Eye Exam: Normal appearance, PERRL. absent: EOMI Pupil Exam: PERRL. absent: Irregular, Unequal - ENT Exam ENT Exam: Mucous Membranes Moist, Normal Oropharynx - Neck Exam Neck Exam: absent: Lymphadenopathy, Thyromegaly - Respiratory Exam Respiratory Exam: Clear to Ausculation Bilateral, NORMAL BREATHING PATTERN. absent: Respiratory Distress - Cardiovascular Exam Cardiovascular Exam: REGULAR RHYTHM, RRR, +S1, +S2. absent: Gallop, Rubs - GI/Abdominal Exam GI & Abdominal Exam: Soft, Normal Bowel Sounds. absent: Hyperactive Bowel Sounds - Extremities Exam Extremities Exam: Full ROM, Normal Inspection. absent: Pedal Edema, Tenderness - Neurological Exam Neurological Exam: Altered. absent: Alert, Awake, Oriented x3 - Skin Skin Exam: Dry, Intact Assessment and Plan - Assessment and Plan (Free Text) Assessment: 36 y/o male with PMH of substance abuse presents with drug overdose, with multiple substances (+BZDs, barbiturate, Opiates), s/p ROSC after cardiac arrest x 3, unknown initial downtime at home. Tracheostomy and G-tube placement not placed yesterday by surgery due to hypernatremia. Pt will be rescheduled for Wednesday. Pt also started on d5W and free water via the NGT. Antibiotics will also be stopped at tihs time. Prognosis discussed with family, who are still hopeful patient will have a meaningful recovery. Plan: Neuro: -Patient intubated and unresponsive on sedative medication -Continue to Maintain temp ~92-94F -Neurochecks q2h -Urine toxicology positive for opiates, barbiturates and benzos -CT Head (-). Seen by Neurology. -Repeat EEG demonstrates anoxic brain injury and poor prognosis. -Brain MRI showed anoxic injury in thalamic region bilaterally. -Will continue to attempt weaning trials -Continue Seizure precautions -Neuro status hard to determine due to sedation. Will reassess once sedation is weaned off. -Patient expected to have tracheostomy and gastrostomy tube placement on Wednesday. Cardio: -Continue propofol and Midozalam with goal MAP > 70 -EKG reviewed; atrial fibrillation with slow ventricular response (51bpm), nonspecific intraventricular block -F/U with Cardiology recs. Pulm: -Failed CPAP trial, will remain on full ventilatory support. Patient expected to undergo Tracheostomy on Wednesday. -ABG and CXR reviewed -patient pO2 stable. Patient's FiO2 remains at 40%. Will monitor closely. -Continue serial CXR and ABG. GI: -NPO -NGT -Protonix Renal: -Hypernatremic, will continue on D5W and free water via NGT. Resolved Na today 144. Will continue to monitor closely. -Hypokalemia (3.1 today) and Magnesium 1.6. Will replete as needed. -Will continue to monitor and treat electrolyte abnormalities as indicated -Monitor I's and O's Endo: -Fingersticks q2h -Maintain euglycemia between 140-180's -Stress dose steroids, tapering ID: -Afebrile, leukocytosis improving.Continue Metronidazole. -Sputum culture grew Yeast species. Remaining Cultures negative at this time -Full course of abx given, will D/C at this time GI/DVT Prophylaxis -Protonix/SCD's <Raheel Espitia - Last Filed: 03/21/17 18:49> Objective - Vital Signs/Intake and Output Vital Signs (last 24 hours): Temp Pulse Resp BP Pulse Ox 99.7 F H 100 H 37 H 152/87 H 100 03/21/17 16:00 03/21/17 18:10 03/21/17 14:30 03/21/17 18:00 03/21/17 18:10 Intake and Output: 03/21/17 03/21/17 06:59 18:59 Intake Total 2248 2690 Output Total 2050 2200 Balance 198 490 - Medications Medications: Current Medications Albuterol/Ipratropium (Duoneb 3 Mg/0.5 Mg (3 Ml) Ud) 3 ml IH Q2H PRN PRN Reason: Shortness of Breath Last Admin: 03/13/17 15:45 Dose: 3 ml Albuterol/Ipratropium (Duoneb 3 Mg/0.5 Mg (3 Ml) Ud) 3 ml IH [id number] [facility] Last Admin: 03/21/17 13:17 Dose: 3 ml Chlorhexidine Gluconate (Peridex) 15 ml PO BID [facility] Last Admin: 03/21/17 18:03 Dose: 15 ml Propofol (Diprivan) 1,000 mg in 100 mls @ 3.674 mls/hr IV .Q24H PRN; Protocol; 5 MCG/KG/MIN PRN Reason: TITRATE PER MD ORDER Last Admin: 03/21/17 16:51 Dose: 50 mcg/kg/min, 36.741 mls/hr Levetiracetam 1,000 mg/ Sodium (Chloride) 110 mls @ 460 mls/hr IV Q12 [facility] Last Admin: 03/21/17 09:51 Dose: 460 mls/hr Potassium Chloride 40 meq/ (Sodium Chloride) 1,020 mls @ 100 mls/hr IV .[id number] [facility] Last Admin: 03/21/17 09:50 Dose: 100 mls/hr Phenytoin 100 mg/ Sodium (Chloride) 52 mls @ 104 mls/hr IVPB TID [facility] Last Admin: 03/21/17 18:02 Dose: 104 mls/hr Metronidazole (Flagyl) 500 mg in 100 mls @ 100 mls/hr IVPB Q8 [facility] PRN Reason: Protocol Last Admin: 03/21/17 14:28 Dose: 100 mls/hr Dextrose (Dextrose 5% In Water 1000 Ml) 1,000 mls @ 60 mls/hr IV .[id number] [facility] Last Admin: 03/21/17 12:53 Dose: 60 mls/hr Valproate Sodium 500 mg/ (Sodium Chloride) 105 mls @ 100 mls/hr IVPB Q8 [facility] Last Admin: 03/21/17 14:33 Dose: 100 mls/hr Fentanyl Citrate (Fentanyl Citrate/Sodium Chloride 1 Mg/100 Ml) 1,000 mcg in 100 mls @ 2 mls/hr IV .Q24H PRN; Protocol; 20 MCG/HR PRN Reason: TITRATE PER MD ORDER Last Admin: 03/21/17 15:42 Dose: 100 mcg/hr, 10 mls/hr Midazolam 100 mg/100ml in NS (Midazolam 100 Mg/100ml In Ns) 100 mg in 100 mls @ 20 mls/hr IV .Q5H PRN; Protocol; 20 MG/HR PRN Reason: Sedation Last Admin: 03/21/17 18:04 Dose: 20 mg/hr, 20 mls/hr Metoprolol Tartrate (Lopressor) 5 mg IVP Q4 PRN PRN Reason: sbp>160 or HR > 130 BPM Pantoprazole Sodium (Protonix Inj) 40 mg IVP Q12 [facility] Last Admin: 03/21/17 09:52 Dose: 40 mg - Labs Labs: 03/21/17 05:30 03/21/17 05:30 PT 12.3 Seconds (9.9-11.8) H 03/21/17 05:30 INR 1.14 (0.93-1.08) H 03/21/17 05:30 APTT 22.4 Seconds (23.7-30.8) L 03/21/17 05:30 Attending/Attestation - Attestation I have personally seen and examined this patient.: Yes I have fully participated in the care of the patient.: Yes I have reviewed all pertinent clinical information, including history, physical exam and plan: Yes Notes (Text): 03/21/17 18:47 36 year old male with past medical history of depression, anxiety, hypertension , and substance abuse who presented with cardiac arrest secondary to suspected drug overdose. Urine drug screen was positive for opiates, barbituates and benzodiazepines. He is currently intubated. Continue with vent management and weaning trials as per market development specialist. MRI brain showed signs of anoxic injury. EEG was reviewed as well. Neurology is following the patient. He is on dilantin, valproate and keppra for seizures. Plan is for possible trach and peg this coming week if stable. He was also initially found to have renal insufficiency and elevated LFTs which have improved. He has completed course of antibiotics and his stress dose steroids were tapered. Will replete and repeat lytes. Raheel Espitia MD Hospitalist.
[2017-03-21] MEDS: Potassium Chloride 40 MEQ in Sodium Chloride 0.45% 1,000 ML IV SCH (09:50)
[2017-03-21] MEDS: Chlorhexidine 0.12% Oral Sol 480 ml Bot PO SCH ×2 (09:51→18:03)
[2017-03-21] MEDS: levETIRAcetam 1,000 MG in Sodium Chloride 0.9% 100 ML IV SCH ×2 (09:51→21:39)
[2017-03-21] MEDS ORDERED: Magnesium Sulfate 2 GM in Sodium Chloride 0.9% 100 ML IVPB ONE (10:18)
--- NOTE | 2017-03-21 11:20 | RAD ---
HISTORY: Intubated, f/u COMPARISON: Comparison made with prior radiograph of the chest 03/20/2017 at 0059 hours. FINDINGS: In situ ETT, tip of which lies at some 0.15 cm above serenity. NGT is present with tip overlying the left upper quadrant of the abdomen LUNGS: Mild left basilar atelectasis. PLEURA: No significant pleural effusion identified, no pneumothorax apparent. CARDIOVASCULAR: Normal. OSSEOUS STRUCTURES: No significant abnormalities. VISUALIZED UPPER ABDOMEN: Normal. OTHER FINDINGS: None. IMPRESSION: ETT and NGT as above. Mild left basilar atelectasis.
--- NOTE | 2017-03-21 14:11 | CP.PCM.PN ---
Subjective - Date & Time of Evaluation Date of Evaluation: 03/21/17 Time of Evaluation: 11:45 - Subjective Subjective: Patient remains in vegetative state; polyuria appears to be improving; Objective - Vital Signs/Intake and Output Vital Signs (last 24 hours): Temp Pulse Resp BP Pulse Ox 100.1 F H 103 H 26 H 157/104 H 99 03/21/17 08:00 03/21/17 11:40 03/20/17 07:50 03/21/17 11:00 03/21/17 11:40 Intake and Output: 03/21/17 03/21/17 06:59 18:59 Intake Total 2248 200 Output Total 2050 Balance 198 200 - Medications Medications: Current Medications Albuterol/Ipratropium (Duoneb 3 Mg/0.5 Mg (3 Ml) Ud) 3 ml IH Q2H PRN PRN Reason: Shortness of Breath Last Admin: 03/13/17 15:45 Dose: 3 ml Albuterol/Ipratropium (Duoneb 3 Mg/0.5 Mg (3 Ml) Ud) 3 ml IH [id number] [facility] Last Admin: 03/21/17 13:17 Dose: 3 ml Chlorhexidine Gluconate (Peridex) 15 ml PO BID [facility] Last Admin: 03/21/17 09:51 Dose: 15 ml Propofol (Diprivan) 1,000 mg in 100 mls @ 3.674 mls/hr IV .Q24H PRN; Protocol; 5 MCG/KG/MIN PRN Reason: TITRATE PER MD ORDER Last Admin: 03/21/17 09:54 Dose: 57.15 mcg/kg/min, 41.995 mls/hr Levetiracetam 1,000 mg/ Sodium (Chloride) 110 mls @ 460 mls/hr IV Q12 [facility] Last Admin: 03/21/17 09:51 Dose: 460 mls/hr Potassium Chloride 40 meq/ (Sodium Chloride) 1,020 mls @ 100 mls/hr IV .[id number] [facility] Last Admin: 03/21/17 09:50 Dose: 100 mls/hr Phenytoin 100 mg/ Sodium (Chloride) 52 mls @ 104 mls/hr IVPB TID [facility] Last Admin: 03/21/17 09:50 Dose: 104 mls/hr Metronidazole (Flagyl) 500 mg in 100 mls @ 100 mls/hr IVPB Q8 [facility] PRN Reason: Protocol Last Admin: 03/21/17 05:21 Dose: 100 mls/hr Midazolam 100 mg/100ml in NS (Midazolam 100 Mg/100ml In Ns) 100 mg in 100 mls @ 1 mls/hr IV .Q24H PRN; Protocol; 1 MG/HR PRN Reason: Sedation Last Titration: 03/20/17 20:00 Dose: 4 mg/hr, 4 mls/hr Potassium Chloride (Potassium Chloride 20 Meq/100 Ml) 20 meq in 100 mls @ 50 mls/hr IVPB Q2H [facility] Stop: 03/21/17 14:29 Last Admin: 03/21/17 10:56 Dose: 50 mls/hr Dextrose (Dextrose 5% In Water 1000 Ml) 1,000 mls @ 60 mls/hr IV .[id number] [facility] Valproate Sodium 500 mg/ (Sodium Chloride) 105 mls @ 100 mls/hr IVPB Q8 [facility] Pantoprazole Sodium (Protonix Inj) 40 mg IVP Q12 [facility] Last Admin: 03/21/17 09:52 Dose: 40 mg - Labs Labs: 03/21/17 05:30 03/21/17 05:30 PT 12.3 Seconds (9.9-11.8) H 03/21/17 05:30 INR 1.14 (0.93-1.08) H 03/21/17 05:30 APTT 22.4 Seconds (23.7-30.8) L 03/21/17 05:30 - Constitutional Appears: Non-toxic, No Acute Distress - Head Exam Head Exam: NORMAL INSPECTION - Eye Exam Eye Exam: absent: Scleral icterus - ENT Exam ENT Exam: Mucous Membranes Moist - Respiratory Exam Respiratory Exam: Clear to Ausculation Bilateral. absent: NORMAL BREATHING PATTERN Additional comments: tachypneic; - Cardiovascular Exam Cardiovascular Exam: RRR, +S1, +S2 - GI/Abdominal Exam GI & Abdominal Exam: Soft. absent: Distended - Extremities Exam Additional comments: no leg edema; - Neurological Exam Neurological Exam: absent: Alert Additional comments: responding to noxious stimuli; - Skin Skin Exam: Warm. absent: Cyanosis Assessment and Plan (1) Acute renal failure Assessment & Plan: ATN, resolving; polyuria improving as well although not yet resolved; continue IVF w/ 1/2NS at 100 cc/hr to avoid volume depletion; Status: Acute (2) ARDS (adult respiratory distress syndrome) Assessment & Plan: FIO2 requirement much improved; will avoid excess IVF; Status: Acute (3) Polyuria Assessment & Plan: Due to ATN recovery; IVF as above; Status: Acute (4) Electrolyte imbalance Assessment & Plan: Hypernatremia slightly worsened after significant improvement day before; restarting D5W at 60 cc/hr; replenish K prn; Status: Acute
[2017-03-21] MEDS: Valproate 500 MG in Sodium Chloride 0.9% 100 ML IVPB SCH ×2 (14:33→21:26)
[2017-03-21] MEDS ORDERED: Midazolam 100 mg/100ml in NS 100 MG/100 ML SOL IV PRN ×4 (14:36→17:05)
--- NOTE | 2017-03-21 15:06 | RAD ---
HISTORY: challenging vent COMPARISON: Comparison chest dated 03/21/2017 at 0604 hours. FINDINGS: In situ ETT, tip of which lies approximately 5.1 cm above serenity. In situ NGT, tip of which overlies left upper quadrant of the abdomen. LUNGS: Vague patchy opacity seen in the left mid to lower lung field that may represent some combination of atelectasis and or infiltrate. Small layering effusion cannot be completely excluded. PLEURA: No significant pleural effusion identified, no pneumothorax apparent. CARDIOVASCULAR: Normal. OSSEOUS STRUCTURES: No significant abnormalities. VISUALIZED UPPER ABDOMEN: Normal. OTHER FINDINGS: None. IMPRESSION: ETT and NGT as described. Vague patchy opacity seen in the left mid to lower lung field that may represent some combination of atelectasis and or infiltrate. Small layering effusion cannot be completely excluded.
[2017-03-21] MEDS: Fentanyl 1000mcg/100ml NS 1,000 MCG/100 ML BAG IV PRN ×2 (15:42→22:33)
[2017-03-21] MEDS: Midazolam 100 mg/100ml in NS 100 MG/100 ML SOL IV PRN ×2 (18:04→23:15)
[2017-03-22] MEDS: Propofol 10 mg/ml 1,000 MG/100 ML VIAL IV PRN ×7 (01:08→19:43)
[2017-03-22] MEDS: Potassium Chloride 40 MEQ in Sodium Chloride 0.45% 1,000 ML IV SCH ×2 (01:30→09:39)
[2017-03-22] MEDS: Albuterol-Ipratrop 3 mg / 0.5 (3 ml) UD IH SCH ×4 (02:35→20:05)
[2017-03-22] MEDS: Midazolam 100 mg/100ml in NS 100 MG/100 ML SOL IV PRN ×5 (02:55→16:53)
[2017-03-22] MEDS: Fentanyl 1000mcg/100ml NS 1,000 MCG/100 ML BAG IV PRN ×4 (04:10→18:10)
[2017-03-22] MEDS: Valproate 500 MG in Sodium Chloride 0.9% 100 ML IVPB SCH ×3 (05:23→21:59)
[2017-03-22] MEDS: metroNIDAZOLE IV 500 mg/100 ml 500 MG/100 ML BAG IVPB SCH ×3 (05:52→21:42)
[2017-03-22 06:30] LABS: ARTERIAL BLOOD GAS HCO3 23.2 mmol/L (21-28); ARTERIAL BLOOD GAS O2 CAPACITY 12.8 mL/dl (16-24); ARTERIAL BLOOD GAS O2 CONTENT 12.6 ML/dl (15-23); ARTERIAL BLOOD GAS PH 7.36 (7.35-7.45); ARTERIAL BLOOD HGB O2 SAT 95.8 % (95.0-98.0); CARBOXYHEMOGLOBIN 1.7 % (0.5-1.5); HHB 1.3 % (0-5); METHEMOGLOBIN 1.2 % (0.0-3.0)
[2017-03-22 06:39] LABS: BASO # 0.03 K/mm3 (0.0-2.0); BASO % 0.3 % (0.0-3.0); EOS # 0.6 (0.0-0.7); EOS % 5.8 % (1.5-5.0); GRAN # 6.42 (1.4-6.5); GRAN % 58.3 % (50.0-68.0); LYMPH # 2.4 (1.2-3.4); LYMPH % 22.1 % (22.0-35.0); MEAN CELL VOLUME 87.5 fl (80.0-105.0); MEAN CORPUSCULAR HEMOGLOBIN 28.4 pg (25.0-35.0); MEAN CORPUSCULAR HGB CONC 32.5 g/dl (31.0-37.0); MEAN PLATELET VOLUME 10.1 fl (7.0-11.0); MONO # 1.5 (0.1-0.6); MONO % 13.5 % (1.0-6.0); RED CELL DISTRIBUTION WIDTH 14.1 % (11.5-14.5)
[2017-03-22 06:48] LABS: INR 1.1 (0.93-1.08); PARTIAL THROMBOPLASTIN TIME 24.9 Seconds (23.7-30.8)
[2017-03-22 07:06] LABS: ALB/GLOB RATIO 0.9 (1.1-1.8); ALKALINE PHOSPHATASE 94 U/L (38-126); ALT/SGPT 78 U/L (7-56); AST/SGOT 83 U/L (17-59); BILIRUBIN,TOTAL 0.9 mg/dL (0.2-1.3); BLOOD UREA NITROGEN 12 mg/dL (7-21); CALCIUM 8.8 mg/dL (8.4-10.5); CARBON DIOXIDE 24 mmol/L (21-33); CHLORIDE 111 mmol/L (98-107); GFR AFRICAN-AMERICAN > 60; GLUCOSE,RANDOM 90 mg/dL (70-110); MAGNESIUM 1.5 mg/dL (1.7-2.2); PHOSPHOROUS 4.1 mg/dL (2.5-4.5); POTASSIUM 3.7 mmol/L (3.6-5.0); SODIUM 145 mmol/L (132-148); TOTAL PROTEIN 6.7 g/dL (5.8-8.3)
--- NOTE | 2017-03-22 08:35 | CP.PCM.PN ---
Subjective - Date & Time of Evaluation Date of Evaluation: 03/22/17 Time of Evaluation: 08:33 - Subjective Subjective: Surgery Pt s&e. Pt intubated. FiO2 40% PEEP 8. Objective - Vital Signs/Intake and Output Vital Signs (last 24 hours): Temp Pulse Resp BP Pulse Ox 98.7 F 112 H 16 142/84 99 03/22/17 04:00 03/22/17 07:50 03/22/17 01:20 03/22/17 07:00 03/22/17 07:50 Intake and Output: 03/22/17 03/22/17 06:59 18:59 Intake Total 4005 100 Output Total 2450 Balance 1555 100 - Medications Medications: Current Medications Albuterol/Ipratropium (Duoneb 3 Mg/0.5 Mg (3 Ml) Ud) 3 ml IH Q2H PRN PRN Reason: Shortness of Breath Last Admin: 03/13/17 15:45 Dose: 3 ml Albuterol/Ipratropium (Duoneb 3 Mg/0.5 Mg (3 Ml) Ud) 3 ml IH [id number] [facility] Last Admin: 03/22/17 07:30 Dose: 3 ml Chlorhexidine Gluconate (Peridex) 15 ml PO BID [facility] Last Admin: 03/21/17 18:03 Dose: 15 ml Propofol (Diprivan) 1,000 mg in 100 mls @ 3.674 mls/hr IV .Q24H PRN; Protocol; 5 MCG/KG/MIN PRN Reason: TITRATE PER MD ORDER Last Admin: 03/22/17 06:23 Dose: 50 mcg/kg/min, 36.741 mls/hr Levetiracetam 1,000 mg/ Sodium (Chloride) 110 mls @ 460 mls/hr IV Q12 [facility] Last Admin: 03/21/17 21:39 Dose: 460 mls/hr Potassium Chloride 40 meq/ (Sodium Chloride) 1,020 mls @ 100 mls/hr IV .[id number] [facility] Last Admin: 03/22/17 01:30 Dose: 100 mls/hr Phenytoin 100 mg/ Sodium (Chloride) 52 mls @ 104 mls/hr IVPB TID [facility] Last Admin: 03/21/17 18:02 Dose: 104 mls/hr Metronidazole (Flagyl) 500 mg in 100 mls @ 100 mls/hr IVPB Q8 [facility] PRN Reason: Protocol Last Admin: 03/22/17 05:52 Dose: 100 mls/hr Dextrose (Dextrose 5% In Water 1000 Ml) 1,000 mls @ 60 mls/hr IV .[id number] [facility] Last Admin: 03/22/17 04:30 Dose: 60 mls/hr Valproate Sodium 500 mg/ (Sodium Chloride) 105 mls @ 100 mls/hr IVPB Q8 [facility] Last Admin: 03/22/17 05:23 Dose: 100 mls/hr Fentanyl Citrate (Fentanyl Citrate/Sodium Chloride 1 Mg/100 Ml) 1,000 mcg in 100 mls @ 2 mls/hr IV .Q24H PRN; Protocol; 20 MCG/HR PRN Reason: TITRATE PER MD ORDER Last Admin: 03/22/17 08:29 Dose: 200 mcg/hr, 20 mls/hr Midazolam 100 mg/100ml in NS (Midazolam 100 Mg/100ml In Ns) 100 mg in 100 mls @ 20 mls/hr IV .Q5H PRN; Protocol; 20 MG/HR PRN Reason: Sedation Last Admin: 03/22/17 06:11 Dose: 30 mg/hr, 30 mls/hr Metoprolol Tartrate (Lopressor) 5 mg IVP Q4 PRN PRN Reason: sbp>160 or HR > 130 BPM Pantoprazole Sodium (Protonix Inj) 40 mg IVP Q12 [facility] Last Admin: 03/21/17 21:23 Dose: 40 mg - Labs Labs: 03/22/17 05:30 03/22/17 05:30 PT 11.9 Seconds (9.9-11.8) H 03/22/17 05:30 INR 1.10 (0.93-1.08) H 03/22/17 05:30 APTT 24.9 Seconds (23.7-30.8) 03/22/17 05:30 - Constitutional Appears: No Acute Distress - Head Exam Head Exam: NORMAL INSPECTION, NORMOCEPHALIC - ENT Exam Additional comments: Intubated. - Neck Exam Additional comments: ETT - Cardiovascular Exam Cardiovascular Exam: +S1, +S2 - GI/Abdominal Exam GI & Abdominal Exam: Soft, Normal Bowel Sounds. absent: Distended, Firm, Guarding, Tenderness - Exam Exam: NORMAL INSPECTION - Extremities Exam Extremities Exam: Normal Inspection - Back Exam Back Exam: NORMAL INSPECTION - Neurological Exam Neurological Exam: absent: Alert, Awake, Normal Gait, Oriented x3 - Skin Skin Exam: Dry, Intact, Normal Color, Warm Assessment and Plan - Assessment and Plan (Free Text) Assessment: 36 M s/p Cardiac arrest likely secondary to substance abuse; in persistent vegetative state secondary to anoxic brain injury. Surgery was consulted for tracheostomy and gastrostomy tube placement -Tracheostomy and gastrostomy tube placement scheduled in OR for today -Medically optimize patient -Management as per ICU -DW Dr. Reyes
--- NOTE | 2017-03-22 08:42 | RAD ---
HISTORY: Intubated, f/u COMPARISON: 03/21/2017 FINDINGS: LUNGS: No active pulmonary disease. PLEURA: No significant pleural effusion identified, no pneumothorax apparent. CARDIOVASCULAR: Normal heart size. Endotracheal tube and nasogastric tube are appropriately positioned, unchanged from prior examination. OSSEOUS STRUCTURES: No significant abnormalities. VISUALIZED UPPER ABDOMEN: Normal. OTHER FINDINGS: None. IMPRESSION: No active disease.
[2017-03-22] MEDS: levETIRAcetam 1,000 MG in Sodium Chloride 0.9% 100 ML IV SCH ×2 (09:40→21:58)
--- NOTE | 2017-03-22 10:35 | CP.PCM.PN ---
<Radha Villatoro - Last Filed: 03/22/17 13:04> Subjective - Date & Time of Evaluation Date of Evaluation: 03/22/17 Time of Evaluation: 10:19 - Subjective Subjective: Neurology Progress Note for Skylar Segovia PGY2 Patient seen and examined at bedside. As per ICU, patient was having seizure like activity throughout the weekend. He was placed on Versed to decrease the seizure activity. [facility] was contacted for continuous EEG monitoring, but patient was not accepted for transfer. Objective - Vital Signs/Intake and Output Vital Signs (last 24 hours): Temp Pulse Resp BP Pulse Ox 99 F 110 H 16 140/76 98 03/22/17 08:00 03/22/17 09:50 03/22/17 01:20 03/22/17 09:00 03/22/17 09:50 Intake and Output: 03/22/17 03/22/17 06:59 18:59 Intake Total 4005 200 Output Total 2450 Balance 1555 200 - Medications Medications: Current Medications Albuterol/Ipratropium (Duoneb 3 Mg/0.5 Mg (3 Ml) Ud) 3 ml IH Q2H PRN PRN Reason: Shortness of Breath Last Admin: 03/13/17 15:45 Dose: 3 ml Albuterol/Ipratropium (Duoneb 3 Mg/0.5 Mg (3 Ml) Ud) 3 ml IH [id number] [facility] Last Admin: 03/22/17 07:30 Dose: 3 ml Chlorhexidine Gluconate (Peridex) 15 ml PO BID [facility] Last Admin: 03/21/17 18:03 Dose: 15 ml Propofol (Diprivan) 1,000 mg in 100 mls @ 3.674 mls/hr IV .Q24H PRN; Protocol; 5 MCG/KG/MIN PRN Reason: TITRATE PER MD ORDER Last Admin: 03/22/17 06:23 Dose: 50 mcg/kg/min, 36.741 mls/hr Levetiracetam 1,000 mg/ Sodium (Chloride) 110 mls @ 460 mls/hr IV Q12 [facility] Last Admin: 03/22/17 09:40 Dose: 460 mls/hr Potassium Chloride 40 meq/ (Sodium Chloride) 1,020 mls @ 100 mls/hr IV .[id number] [facility] Last Admin: 03/22/17 09:39 Dose: 100 mls/hr Phenytoin 100 mg/ Sodium (Chloride) 52 mls @ 104 mls/hr IVPB TID [facility] Last Admin: 03/22/17 09:37 Dose: 104 mls/hr Metronidazole (Flagyl) 500 mg in 100 mls @ 100 mls/hr IVPB Q8 [facility] PRN Reason: Protocol Last Admin: 03/22/17 05:52 Dose: 100 mls/hr Valproate Sodium 500 mg/ (Sodium Chloride) 105 mls @ 100 mls/hr IVPB Q8 [facility] Last Admin: 03/22/17 05:23 Dose: 100 mls/hr Fentanyl Citrate (Fentanyl Citrate/Sodium Chloride 1 Mg/100 Ml) 1,000 mcg in 100 mls @ 2 mls/hr IV .Q24H PRN; Protocol; 20 MCG/HR PRN Reason: TITRATE PER MD ORDER Last Admin: 03/22/17 08:29 Dose: 200 mcg/hr, 20 mls/hr Midazolam 100 mg/100ml in NS (Midazolam 100 Mg/100ml In Ns) 100 mg in 100 mls @ 20 mls/hr IV .Q5H PRN; Protocol; 20 MG/HR PRN Reason: Sedation Last Admin: 03/22/17 09:35 Dose: 30 mg/hr, 30 mls/hr Dextrose (Dextrose 5% In Water 1000 Ml) 1,000 mls @ 100 mls/hr IV .Q10H [facility] Last Admin: 03/22/17 09:42 Dose: 100 mls/hr Magnesium Sulfate 2 gm/ Sodium (Chloride) 104 mls @ 102 mls/hr IVPB Q3H [facility] Stop: 03/22/17 14:02 Metoprolol Tartrate (Lopressor) 5 mg IVP Q4 PRN PRN Reason: sbp>160 or HR > 130 BPM Pantoprazole Sodium (Protonix Inj) 40 mg IVP Q12 [facility] Last Admin: 03/22/17 09:41 Dose: 40 mg - Labs Labs: 03/22/17 05:30 03/22/17 05:30 PT 11.9 Seconds (9.9-11.8) H 03/22/17 05:30 INR 1.10 (0.93-1.08) H 03/22/17 05:30 APTT 24.9 Seconds (23.7-30.8) 03/22/17 05:30 - Constitutional Appears: No Acute Distress - Head Exam Head Exam: ATRAUMATIC, NORMAL INSPECTION, NORMOCEPHALIC - Eye Exam Eye Exam: PERRL Pupil Exam: PERRL - ENT Exam ENT Exam: Mucous Membranes Moist - Respiratory Exam Respiratory Exam: Clear to Ausculation Bilateral, NORMAL BREATHING PATTERN. absent: Rhonchi, Wheezes - GI/Abdominal Exam GI & Abdominal Exam: Soft, Normal Bowel Sounds. absent: Tenderness, Rebound - Extremities Exam Extremities Exam: Normal Inspection. absent: Calf Tenderness, Pedal Edema - Neurological Exam Additional comments: Pupillary reflex intact- negative for dolls eye, gag or cough reflex - Skin Skin Exam: Dry, Warm Assessment and Plan - Assessment and Plan (Free Text) Assessment: This is a 36Y M with PMH of anxiety/depression, bipolar disorder, HTN, and substance abuse who was admitted for cardiac arrest who unknown period of time s /p ROSC with hypoxic/ischemic arrest. Patient found to be positive for multiple substances on urine tox (benzo, barbiturate and opiates). Patient is currently intubated and sedated. MRI brain showed showed abnormal signaling of the thalamus bilaterally which is consistent with anoxic brain injury. EEG showed burst suppression as well as paroxysmal polymorphic delta waves which is consistent with seizure and poor prognosis. As per patient's family, they would like to proceed with trach/peg placement. Patient was having seizure like activity and was placed on sedation. Patient was denied for transfer for continuous EEG monitoring. Plan: - Continue sedation - Continue Keppra and Dilantin - Continue seizure precautions Patient is in a persistent vegetative state. With the findings of anoxic brain injury on MRI and seizures on EEG, the prognosis is poor. Case seen, discussed and reviewed with Dr. Rene. Skylar Villatoro PGY2 <Ivan Rene - Last Filed: 03/22/17 13:28> Objective - Vital Signs/Intake and Output Vital Signs (last 24 hours): Temp Pulse Resp BP Pulse Ox 99 F 105 H 16 124/56 L 96 03/22/17 12:00 03/22/17 13:00 03/22/17 01:20 03/22/17 13:00 03/22/17 13:00 Intake and Output: 03/22/17 03/22/17 06:59 18:59 Intake Total 4005 500 Output Total 2450 Balance 1555 500 - Medications Medications: Current Medications Albuterol/Ipratropium (Duoneb 3 Mg/0.5 Mg (3 Ml) Ud) 3 ml IH Q2H PRN PRN Reason: Shortness of Breath Last Admin: 03/13/17 15:45 Dose: 3 ml Albuterol/Ipratropium (Duoneb 3 Mg/0.5 Mg (3 Ml) Ud) 3 ml IH [id number] [facility] Last Admin: 03/22/17 13:26 Dose: 3 ml Chlorhexidine Gluconate (Peridex) 15 ml PO BID [facility] Last Admin: 03/22/17 12:07 Dose: 15 ml Propofol (Diprivan) 1,000 mg in 100 mls @ 3.674 mls/hr IV .Q24H PRN; Protocol; 5 MCG/KG/MIN PRN Reason: TITRATE PER MD ORDER Last Admin: 03/22/17 11:39 Dose: 50 mcg/kg/min, 36.741 mls/hr Levetiracetam 1,000 mg/ Sodium (Chloride) 110 mls @ 460 mls/hr IV Q12 [facility] Last Admin: 03/22/17 09:40 Dose: 460 mls/hr Potassium Chloride 40 meq/ (Sodium Chloride) 1,020 mls @ 100 mls/hr IV .[id number] [facility] Last Admin: 03/22/17 09:39 Dose: 100 mls/hr Phenytoin 100 mg/ Sodium (Chloride) 52 mls @ 104 mls/hr IVPB TID [facility] Last Admin: 03/22/17 13:13 Dose: 104 mls/hr Metronidazole (Flagyl) 500 mg in 100 mls @ 100 mls/hr IVPB Q8 [facility] PRN Reason: Protocol Stop: 03/28/17 14:01 Last Admin: 03/22/17 13:08 Dose: 100 mls/hr Valproate Sodium 500 mg/ (Sodium Chloride) 105 mls @ 100 mls/hr IVPB Q8 [facility] Last Admin: 03/22/17 13:13 Dose: 100 mls/hr Fentanyl Citrate (Fentanyl Citrate/Sodium Chloride 1 Mg/100 Ml) 1,000 mcg in 100 mls @ 2 mls/hr IV .Q24H PRN; Protocol; 20 MCG/HR PRN Reason: TITRATE PER MD ORDER Last Admin: 03/22/17 13:23 Dose: 200 mcg/hr, 20 mls/hr Midazolam 100 mg/100ml in NS (Midazolam 100 Mg/100ml In Ns) 100 mg in 100 mls @ 20 mls/hr IV .Q5H PRN; Protocol; 20 MG/HR PRN Reason: Sedation Last Admin: 03/22/17 13:20 Dose: 30 mg/hr, 30 mls/hr Dextrose (Dextrose 5% In Water 1000 Ml) 1,000 mls @ 100 mls/hr IV .Q10H [facility] Last Admin: 03/22/17 09:42 Dose: 100 mls/hr Magnesium Sulfate 2 gm/ Sodium (Chloride) 104 mls @ 102 mls/hr IVPB Q3H [facility] Stop: 03/22/17 14:02 Last Admin: 03/22/17 12:05 Dose: 102 mls/hr Metoprolol Tartrate (Lopressor) 5 mg IVP Q4 PRN PRN Reason: sbp>160 or HR > 130 BPM Pantoprazole Sodium (Protonix Inj) 40 mg IVP Q12 [facility] Last Admin: 03/22/17 09:41 Dose: 40 mg - Labs Labs: 03/22/17 05:30 03/22/17 05:30 PT 11.9 Seconds (9.9-11.8) H 03/22/17 05:30 INR 1.10 (0.93-1.08) H 03/22/17 05:30 APTT 24.9 Seconds (23.7-30.8) 03/22/17 05:30 Attending/Attestation - Attestation I have personally seen and examined this patient.: Yes I have fully participated in the care of the patient.: Yes I have reviewed all pertinent clinical information, including history, physical exam and plan: Yes
[2017-03-22] MEDS: Magnesium Sulfate 2 GM in Sodium Chloride 0.9% 100 ML IVPB SCH ×2 (10:39→12:05)
--- NOTE | 2017-03-22 11:15 | CP.PCM.PN ---
Subjective - Date & Time of Evaluation Date of Evaluation: 03/22/17 Time of Evaluation: 09:00 - Subjective Subjective: Unrepsisve, intubated, sedated. Seizure activity over the weekend. Objective - Vital Signs/Intake and Output Vital Signs (last 24 hours): Temp Pulse Resp BP Pulse Ox 99 F 107 H 16 137/68 98 03/22/17 08:00 03/22/17 11:00 03/22/17 01:20 03/22/17 11:00 03/22/17 11:00 Intake and Output: 03/22/17 03/22/17 06:59 18:59 Intake Total 4005 200 Output Total 2450 Balance 1555 200 - Medications Medications: Current Medications Albuterol/Ipratropium (Duoneb 3 Mg/0.5 Mg (3 Ml) Ud) 3 ml IH Q2H PRN PRN Reason: Shortness of Breath Last Admin: 03/13/17 15:45 Dose: 3 ml Albuterol/Ipratropium (Duoneb 3 Mg/0.5 Mg (3 Ml) Ud) 3 ml IH [id number] [facility] Last Admin: 03/22/17 07:30 Dose: 3 ml Chlorhexidine Gluconate (Peridex) 15 ml PO BID [facility] Last Admin: 03/21/17 18:03 Dose: 15 ml Propofol (Diprivan) 1,000 mg in 100 mls @ 3.674 mls/hr IV .Q24H PRN; Protocol; 5 MCG/KG/MIN PRN Reason: TITRATE PER MD ORDER Last Admin: 03/22/17 06:23 Dose: 50 mcg/kg/min, 36.741 mls/hr Levetiracetam 1,000 mg/ Sodium (Chloride) 110 mls @ 460 mls/hr IV Q12 [facility] Last Admin: 03/22/17 09:40 Dose: 460 mls/hr Potassium Chloride 40 meq/ (Sodium Chloride) 1,020 mls @ 100 mls/hr IV .[id number] [facility] Last Admin: 03/22/17 09:39 Dose: 100 mls/hr Phenytoin 100 mg/ Sodium (Chloride) 52 mls @ 104 mls/hr IVPB TID [facility] Last Admin: 03/22/17 09:37 Dose: 104 mls/hr Metronidazole (Flagyl) 500 mg in 100 mls @ 100 mls/hr IVPB Q8 [facility] PRN Reason: Protocol Last Admin: 03/22/17 05:52 Dose: 100 mls/hr Valproate Sodium 500 mg/ (Sodium Chloride) 105 mls @ 100 mls/hr IVPB Q8 [facility] Last Admin: 03/22/17 05:23 Dose: 100 mls/hr Fentanyl Citrate (Fentanyl Citrate/Sodium Chloride 1 Mg/100 Ml) 1,000 mcg in 100 mls @ 2 mls/hr IV .Q24H PRN; Protocol; 20 MCG/HR PRN Reason: TITRATE PER MD ORDER Last Admin: 03/22/17 08:29 Dose: 200 mcg/hr, 20 mls/hr Midazolam 100 mg/100ml in NS (Midazolam 100 Mg/100ml In Ns) 100 mg in 100 mls @ 20 mls/hr IV .Q5H PRN; Protocol; 20 MG/HR PRN Reason: Sedation Last Admin: 03/22/17 09:35 Dose: 30 mg/hr, 30 mls/hr Dextrose (Dextrose 5% In Water 1000 Ml) 1,000 mls @ 100 mls/hr IV .Q10H [facility] Last Admin: 03/22/17 09:42 Dose: 100 mls/hr Magnesium Sulfate 2 gm/ Sodium (Chloride) 104 mls @ 102 mls/hr IVPB Q3H [facility] Stop: 03/22/17 14:02 Last Admin: 03/22/17 10:39 Dose: 102 mls/hr Metoprolol Tartrate (Lopressor) 5 mg IVP Q4 PRN PRN Reason: sbp>160 or HR > 130 BPM Pantoprazole Sodium (Protonix Inj) 40 mg IVP Q12 [facility] Last Admin: 03/22/17 09:41 Dose: 40 mg - Labs Labs: 03/22/17 05:30 03/22/17 05:30 PT 11.9 Seconds (9.9-11.8) H 03/22/17 05:30 INR 1.10 (0.93-1.08) H 03/22/17 05:30 APTT 24.9 Seconds (23.7-30.8) 03/22/17 05:30 - Constitutional Appears: Chronically Ill - Eye Exam Eye Exam: PERRL - ENT Exam ENT Exam: Mucous Membranes Moist - Respiratory Exam Respiratory Exam: Decreased Breath Sounds, NORMAL BREATHING PATTERN - Cardiovascular Exam Cardiovascular Exam: REGULAR RHYTHM, +S1, +S2 - GI/Abdominal Exam GI & Abdominal Exam: Soft, Diminished Bowel Sounds - Skin Skin Exam: Dry, Warm Assessment and Plan - Assessment and Plan (Free Text) Assessment: 36 year old male with history of bipolar disorder, substance abuse s/p cardiac arrest admitted with respiratory failure,anoxic brain injury, seizure disorder. and sister at bedside. still planning for PEG/ trach. still hopeful that patient can be transferred to a facility which treats anoxic brain injury. understands that if patient is not accepted such facility that patient will be transferred to [facility]
--- NOTE | 2017-03-22 11:57 | CP.CCUPN ---
<Jerman Kilgore - Last Filed: 03/22/17 12:15> CCU Subjective - Physician Review Subjective (Free Text): 03/22/17 11:50 Patient seen and examined at bedside in the ICU. Due to persistent seizure episodes despite sedation and seizure ppx, the patient is now on Propofol/Versed /Fentanyl for sedation, and Keppra/Phenytoin/Valproic Acid for seizure ppx. No further coffee-ground emesis episodes reported; as per nursing no acute events overnight. NGT no longer on suction. Remains intubated, sedated; fewer intermittent twitches in eyes and face, still no purposeful movements. Was pending Trach/G-tube, but family now refusing due to concern over condition. CCU Objective - Vital Signs / Intake & Output Vital Signs (Last 4 hours): Vital Signs Temp Pulse BP Pulse Ox 03/22/17 11:10 107 H 98 03/22/17 11:00 107 H 137/68 98 03/22/17 10:50 108 H 98 03/22/17 10:40 107 H 98 03/22/17 10:30 108 H 98 03/22/17 10:20 108 H 98 03/22/17 10:10 108 H 98 03/22/17 10:00 108 H 129/66 98 03/22/17 09:50 110 H 98 03/22/17 09:40 114 H 97 03/22/17 09:30 117 H 97 03/22/17 09:20 115 H 98 03/22/17 09:10 117 H 98 03/22/17 09:00 114 H 140/76 97 03/22/17 08:50 110 H 97 03/22/17 08:40 110 H 97 03/22/17 08:30 111 H 97 03/22/17 08:20 112 H 97 03/22/17 08:10 112 H 96 03/22/17 08:00 99 F 113 H 134/76 96 Intake and Output (Last 8hrs): Intake & Output 03/21/17 03/22/17 03/22/17 22:59 06:59 14:59 Intake Total 2690 3705 300 Output Total 2200 2450 Balance 490 1255 300 Weight 103.102 kg 102.965 kg Intake: IV 2690 3705 300 Left Antecubital 1560 2040 Left Hand 730 965 Tube Feeding 0 Output: Gastric Amount 650 Nares 650 Urine 1800 1800 Urethral (Armenta) 1800 1800 Emesis 400 Urethral (Armenta) 400 Other: # Bowel Movements 2 - Physical Exam Head: Positive for: Atraumatic, Normocephalic. Negative for: Ecchymosis, Abrasion, Laceration Pupils: Positive for: Non-Reactive, Pinpoint Extroacular Muscles: Positive for: Other (unable to assess due to not following commands, not moving eyes spontaneously, no avoidance of direct light challenge for PERRL assessment; decreased intermittent fluttering of eyelids, eyes remain gazing downward, No doll eyes) Conjunctiva: Negative for: Injected, Icteric Mouth: Positive for: Moist Mucous Membranes, Other (ETT in place with bite guard ). Negative for: Drooling Nose (External): Positive for: Atraumatic, Other (NGT in place set to suction, no more coffee-ground colored drainage noted). Negative for: Abrasion, Contusion, Laceration Neck: Positive for: Trachea Midline. Negative for: JVD, Lymphadenopathy Respiratory/Chest: Positive for: Clear to Auscultation, Good Air Exchange, Rales (mild-moderate rales in all breath [place], unchanged). Negative for: Accessory Muscle Use, Wheezes, Tachypneic Cardiovascular: Positive for: Normal S1, S2, Tachycardic. Negative for: Murmurs , Irregular Rhythm Abdomen: Negative for: Distention (obese but not distended, soft on palpation, no palpable masses or pulsatile masses), Normal Bowel Sounds (diminished but present bowel sounds, unchanged from multiple prior exams), Mass/Organomegaly Upper Extremity: Positive for: Normal Inspection. Negative for: Cyanosis, Edema , Normal ROM, NORMAL PULSES (faintly palpable radials +1), Swelling, Erythema, Deformity Lower Extremity: Positive for: Normal Inspection. Negative for: Edema, NORMAL PULSES (unable to palpate bilateral dorsalis pedis or posterior tibials), Cyanosis, Swelling, Erythema, Deformity Neurological: Positive for: Other (intubated and sedated, now off paralytics for ~12 hrs). Negative for: GCS=15 (GCS 3 (E1 V1t M1)), CN II-XII Intact, Speech Normal, Motor Func Grossly Intact Skin: Positive for: Warm, Dry, Normal Color. Negative for: Rashes Psychiatric: Positive for: Other (sedated and intubated, unable to assess). Negative for: Alert, Oriented x 3, Normal Insight, Normal Concentration, Normal Affect, Normal Mood - Medications Active Medications: Active Medications Generic Name Dose Route Start Last Admin Trade Name Freq PRN Reason Stop Dose Admin Albuterol/Ipratropium 3 ml 03/13/17 15:07 03/13/17 15:45 Duoneb 3 Mg/0.5 Mg (3 Ml) Ud IH 3 ml Q2H PRN Administration Shortness of Breath Albuterol/Ipratropium 3 ml 03/13/17 20:00 03/22/17 07:30 Duoneb 3 Mg/0.5 Mg (3 Ml) Ud IH 3 ml [id number] MARICHUY Administration Chlorhexidine Gluconate 15 ml 03/13/17 10:00 03/21/17 18:03 Peridex PO 15 ml BID MARICHUY Administration Propofol 1,000 mg in 100 mls @ 3.674 mls/hr 03/12/17 07:41 03/22/17 11:39 Diprivan IV 50 mcg/kg/min .Q24H PRN 36.741 mls/hr TITRATE PER MD ORDER Administration Protocol 5 MCG/KG/MIN Levetiracetam 1,000 mg/ Sodium 110 mls @ 460 mls/hr 03/12/17 22:00 03/22/17 09:40 Chloride IV 460 mls/hr Q12 MARICHUY Administration Potassium Chloride 40 meq/ 1,020 mls @ 100 mls/hr 03/17/17 21:40 03/22/17 09: 39 Sodium Chloride IV 100 mls/hr .[id number] MARICHUY Administration Phenytoin 100 mg/ Sodium 52 mls @ 104 mls/hr 03/18/17 10:00 03/22/17 09:37 Chloride IVPB 104 mls/hr TID MARICHUY Administration Metronidazole 500 mg in 100 mls @ 100 mls/hr 03/20/17 14:00 03/22/17 05:52 Flagyl IVPB 100 mls/hr Q8 MARICHUY Administration Protocol Valproate Sodium 500 mg/ 105 mls @ 100 mls/hr 03/21/17 14:00 03/22/17 05:23 Sodium Chloride IVPB 100 mls/hr Q8 MARICHUY Administration Fentanyl Citrate 1,000 mcg in 100 mls @ 2 mls/hr 03/21/17 15:18 03/22/17 08: 29 Fentanyl Citrate/Sodium Chloride 1 Mg/100 Ml IV 200 mcg/hr .Q24H PRN 20 mls/hr TITRATE PER MD ORDER Administration Protocol 20 MCG/HR Midazolam 100 mg/100ml in NS 100 mg in 100 mls @ 20 mls/hr 03/21/17 17:30 09:35 Midazolam 100 Mg/100ml In Ns IV 30 mg/hr .Q5H PRN 30 mls/hr Sedation Administration Protocol 20 MG/HR Dextrose 1,000 mls @ 100 mls/hr 03/22/17 09:10 03/22/17 09:42 Dextrose 5% In Water 1000 Ml IV 100 mls/hr .Q10H MARICHUY Administration Magnesium Sulfate 2 gm/ Sodium 104 mls @ 102 mls/hr 03/22/17 10:00 03/22/17 10:39 Chloride IVPB 03/22/17 14:02 102 mls/hr Q3H MARICHUY Administration Metoprolol Tartrate 5 mg 03/21/17 16:38 Lopressor IVP Q4 PRN sbp>160 or HR > 130 BPM Pantoprazole Sodium 40 mg 03/20/17 22:00 03/22/17 09:41 Protonix Inj IVP 40 mg Q12 MARICHUY Administration - Patient Studies Lab Studies: Microbiology Studies 03/20/17 14:00 Urine Culture - Final Urine,Catheterized No Growth (<1,000 CFU/ML) 03/16/17 22:00 Blood Culture - Final Blood-Venous NO GROWTH AFTER 5 DAYS Gram Stain - Final TEST NOT PERFORMED 03/16/17 21:30 Blood Culture - Final Blood-Venous NO GROWTH AFTER 5 DAYS Gram Stain - Final TEST NOT PERFORMED 03/20/17 13:30 Blood Culture - Preliminary Blood NO GROWTH AFTER 24 HOURS 03/20/17 13:30 Blood Culture - Preliminary Blood NO GROWTH AFTER 24 HOURS Lab Studies 03/22/17 03/22/17 03/22/17 Range/Units 06:30 06:24 05:30 WBC (4.5-11.0) 10^3/ul RBC (3.5-6.1) 10^6/uL Hgb (14.0-18.0) g/dL Hct (42.0-52.0) % MCV (80.0-105.0) fl MCH (25.0-35.0) pg MCHC (31.0-37.0) g/dl RDW (11.5-14.5) % Plt Count (120.0-450.0) 10^3/uL MPV (7.0-11.0) fl Gran % (50.0-68.0) % Lymph % (Auto) (22.0-35.0) % [place] % (Auto) (1.0-6.0) % Eos % (Auto) (1.5-5.0) % Baso % (Auto) (0.0-3.0) % Gran # (1.4-6.5) Lymph # (1.2-3.4) [place] # (0.1-0.6) Eos # (0.0-0.7) Baso # (0.0-2.0) K/mm3 PT 11.9 H (9.9-11.8) Seconds INR 1.10 H (0.93-1.08) APTT 24.9 (23.7-30.8) Seconds pCO2 41 (35-45) mm/Hg pO2 108.0 H (80-100) mm/Hg HCO3 23.2 (21-28) mmol/L ABG pH 7.36 (7.35-7.45) ABG Total CO2 24.5 (22-28) mmol.L ABG O2 Saturation 98.7 H (95-98) % ABG O2 Content 12.6 L (15-23) ML/dl ABG Base Excess -2.1 L (-2.0-3.0) mmol/L ABG Hemoglobin 9.2 L (11.7-17.4) g/dL ABG Carboxyhemoglobin 1.7 H (0.5-1.5) % POC ABG HHb (Measured) 1.3 (0-5) % ABG Methemoglobin 1.2 (0.0-3.0) % ABG O2 Capacity 12.8 L (16-24) mL/dl Hgb O2 Saturation 95.8 (95.0-98.0) % FiO2 40.0 % Sodium (132-148) mmol/L Potassium (3.6-5.0) mmol/L Chloride (98-107) mmol/L Carbon Dioxide (21-33) mmol/L Anion Gap (10-20) BUN (7-21) mg/dL Creatinine (0.8-1.5) mg/dL Est GFR ( Amer) Est GFR (Non-Af Amer) POC Glucose (mg/dL) (65-110) mg/dL Random Glucose (70-110) mg/dL Calcium (8.4-10.5) mg/dL Phosphorus (2.5-4.5) mg/dL Magnesium (1.7-2.2) mg/dL Total Bilirubin (0.2-1.3) mg/dL AST (17-59) U/L ALT (7-56) U/L Alkaline Phosphatase (38-126) U/L Total Protein (5.8-8.3) g/dL Albumin (3.0-4.8) g/dL Globulin gm/dL Albumin/Globulin Ratio (1.1-1.8) Triglycerides (35-160) mg/dL Stool Occult Blood Negative (NEGATIVE) 03/22/17 03/22/17 03/21/17 Range/Units 05:30 05:30 16:54 WBC 11.0 D (4.5-11.0) 10^3/ul RBC 3.20 L (3.5-6.1) 10^6/uL Hgb 9.1 L (14.0-18.0) g/dL Hct 28.0 L (42.0-52.0) % MCV 87.5 (80.0-105.0) fl MCH 28.4 (25.0-35.0) pg MCHC 32.5 (31.0-37.0) g/dl RDW 14.1 (11.5-14.5) % Plt Count 228 (120.0-450.0) 10^3/uL MPV 10.1 (7.0-11.0) fl Gran % 58.3 (50.0-68.0) % Lymph % (Auto) 22.1 (22.0-35.0) % [place] % (Auto) 13.5 H (1.0-6.0) % Eos % (Auto) 5.8 H (1.5-5.0) % Baso % (Auto) 0.3 (0.0-3.0) % Gran # 6.42 (1.4-6.5) Lymph # 2.4 (1.2-3.4) [place] # 1.5 H (0.1-0.6) Eos # 0.6 (0.0-0.7) Baso # 0.03 (0.0-2.0) K/mm3 PT (9.9-11.8) Seconds INR (0.93-1.08) APTT (23.7-30.8) Seconds pCO2 (35-45) mm/Hg pO2 (80-100) mm/Hg HCO3 (21-28) mmol/L ABG pH (7.35-7.45) ABG Total CO2 (22-28) mmol.L ABG O2 Saturation (95-98) % ABG O2 Content (15-23) ML/dl ABG Base Excess (-2.0-3.0) mmol/L ABG Hemoglobin (11.7-17.4) g/dL ABG Carboxyhemoglobin (0.5-1.5) % POC ABG HHb (Measured) (0-5) % ABG Methemoglobin (0.0-3.0) % ABG O2 Capacity (16-24) mL/dl Hgb O2 Saturation (95.0-98.0) % FiO2 % Sodium 145 (132-148) mmol/L Potassium 3.7 (3.6-5.0) mmol/L Chloride 111 H (98-107) mmol/L Carbon Dioxide 24 (21-33) mmol/L Anion Gap 14 (10-20) BUN 12 (7-21) mg/dL Creatinine 0.6 L (0.8-1.5) mg/dL Est GFR ( Amer) > 60 Est GFR (Non-Af Amer) > 60 POC Glucose (mg/dL) 103 (65-110) mg/dL Random Glucose 90 (70-110) mg/dL Calcium 8.8 (8.4-10.5) mg/dL Phosphorus 4.1 (2.5-4.5) mg/dL Magnesium 1.5 L (1.7-2.2) mg/dL Total Bilirubin 0.9 (0.2-1.3) mg/dL AST 83 H (17-59) U/L ALT 78 H (7-56) U/L Alkaline Phosphatase 94 (38-126) U/L Total Protein 6.7 (5.8-8.3) g/dL Albumin 3.2 (3.0-4.8) g/dL Globulin 3.5 gm/dL Albumin/Globulin Ratio 0.9 L (1.1-1.8) Triglycerides 724 H (35-160) mg/dL Stool Occult Blood (NEGATIVE) 03/21/17 Range/Units 16:15 WBC (4.5-11.0) 10^3/ul RBC (3.5-6.1) 10^6/uL Hgb (14.0-18.0) g/dL Hct (42.0-52.0) % MCV (80.0-105.0) fl MCH (25.0-35.0) pg MCHC (31.0-37.0) g/dl RDW (11.5-14.5) % Plt Count (120.0-450.0) 10^3/uL MPV (7.0-11.0) fl Gran % (50.0-68.0) % Lymph % (Auto) (22.0-35.0) % [place] % (Auto) (1.0-6.0) % Eos % (Auto) (1.5-5.0) % Baso % (Auto) (0.0-3.0) % Gran # (1.4-6.5) Lymph # (1.2-3.4) [place] # (0.1-0.6) Eos # (0.0-0.7) Baso # (0.0-2.0) K/mm3 PT (9.9-11.8) Seconds INR (0.93-1.08) APTT (23.7-30.8) Seconds pCO2 (35-45) mm/Hg pO2 (80-100) mm/Hg HCO3 (21-28) mmol/L ABG pH (7.35-7.45) ABG Total CO2 (22-28) mmol.L ABG O2 Saturation (95-98) % ABG O2 Content (15-23) ML/dl ABG Base Excess (-2.0-3.0) mmol/L ABG Hemoglobin (11.7-17.4) g/dL ABG Carboxyhemoglobin (0.5-1.5) % POC ABG HHb (Measured) (0-5) % ABG Methemoglobin (0.0-3.0) % ABG O2 Capacity (16-24) mL/dl Hgb O2 Saturation (95.0-98.0) % FiO2 % Sodium (132-148) mmol/L Potassium (3.6-5.0) mmol/L Chloride (98-107) mmol/L Carbon Dioxide (21-33) mmol/L Anion Gap (10-20) BUN (7-21) mg/dL Creatinine (0.8-1.5) mg/dL Est GFR ( Amer) Est GFR (Non-Af Amer) POC Glucose (mg/dL) (65-110) mg/dL Random Glucose (70-110) mg/dL Calcium (8.4-10.5) mg/dL Phosphorus (2.5-4.5) mg/dL Magnesium (1.7-2.2) mg/dL Total Bilirubin (0.2-1.3) mg/dL AST (17-59) U/L ALT (7-56) U/L Alkaline Phosphatase (38-126) U/L Total Protein (5.8-8.3) g/dL Albumin (3.0-4.8) g/dL Globulin gm/dL Albumin/Globulin Ratio (1.1-1.8) Triglycerides 831 H (35-160) mg/dL Stool Occult Blood (NEGATIVE) Laboratory Results - last 24 hr 03/21/17 03/21/17 03/22/17 16:15 16:54 05:30 WBC 11.0 D RBC 3.20 L Hgb 9.1 L Hct 28.0 L MCV 87.5 MCH 28.4 MCHC 32.5 RDW 14.1 Plt Count 228 MPV 10.1 Gran % 58.3 Lymph % (Auto) 22.1 [place] % (Auto) 13.5 H Eos % (Auto) 5.8 H Baso % (Auto) 0.3 Gran # 6.42 Lymph # 2.4 [place] # 1.5 H Eos # 0.6 Baso # 0.03 PT INR APTT pCO2 pO2 HCO3 ABG pH ABG Total CO2 ABG O2 Saturation ABG O2 Content ABG Base Excess ABG Hemoglobin ABG Carboxyhemoglobin POC ABG HHb (Measured) ABG Methemoglobin ABG O2 Capacity Hgb O2 Saturation FiO2 Sodium Potassium Chloride Carbon Dioxide Anion Gap BUN Creatinine Est GFR ( Amer) Est GFR (Non-Af Amer) POC Glucose (mg/dL) 103 Random Glucose Calcium Phosphorus Magnesium Total Bilirubin AST ALT Alkaline Phosphatase Total Protein Albumin Globulin Albumin/Globulin Ratio Triglycerides 831 H Stool Occult Blood 03/22/17 03/22/17 03/22/17 05:30 05:30 06:24 WBC RBC Hgb Hct MCV MCH MCHC RDW Plt Count MPV Gran % Lymph % (Auto) [place] % (Auto) Eos % (Auto) Baso % (Auto) Gran # Lymph # [place] # Eos # Baso # PT 11.9 H INR 1.10 H APTT 24.9 pCO2 41 pO2 108.0 H HCO3 23.2 ABG pH 7.36 ABG Total CO2 24.5 ABG O2 Saturation 98.7 H ABG O2 Content 12.6 L ABG Base Excess -2.1 L ABG Hemoglobin 9.2 L ABG Carboxyhemoglobin 1.7 H POC ABG HHb (Measured) 1.3 ABG Methemoglobin 1.2 ABG O2 Capacity 12.8 L Hgb O2 Saturation 95.8 FiO2 40.0 Sodium 145 Potassium 3.7 Chloride 111 H Carbon Dioxide 24 Anion Gap 14 BUN 12 Creatinine 0.6 L Est GFR ( Amer) > 60 Est GFR (Non-Af Amer) > 60 POC Glucose (mg/dL) Random Glucose 90 Calcium 8.8 Phosphorus 4.1 Magnesium 1.5 L Total Bilirubin 0.9 AST 83 H ALT 78 H Alkaline Phosphatase 94 Total Protein 6.7 Albumin 3.2 Globulin 3.5 Albumin/Globulin Ratio 0.9 L Triglycerides 724 H Stool Occult Blood 03/22/17 06:30 WBC RBC Hgb Hct MCV MCH MCHC RDW Plt Count MPV Gran % Lymph % (Auto) [place] % (Auto) Eos % (Auto) Baso % (Auto) Gran # Lymph # [place] # Eos # Baso # PT INR APTT pCO2 pO2 HCO3 ABG pH ABG Total CO2 ABG O2 Saturation ABG O2 Content ABG Base Excess ABG Hemoglobin ABG Carboxyhemoglobin POC ABG HHb (Measured) ABG Methemoglobin ABG O2 Capacity Hgb O2 Saturation FiO2 Sodium Potassium Chloride Carbon Dioxide Anion Gap BUN Creatinine Est GFR ( Amer) Est GFR (Non-Af Amer) POC Glucose (mg/dL) Random Glucose Calcium Phosphorus Magnesium Total Bilirubin AST ALT Alkaline Phosphatase Total Protein Albumin Globulin Albumin/Globulin Ratio Triglycerides Stool Occult Blood Negative Fingerstick Blood Sugar Results: 73 Review of Systems - Review of Systems Systems not reviewed;Unavailable: Intubated Critical Care Progress Note - Nutrition Nutrition: Nutrition Category Date Time Status NPO Diet [DIET] Diets 03/14/17 Breakfast Ordered Assessment/Plan - Assessment and Plan (Free Text) Assessment: This is a 36 yo M with past medical history of substance abuse, depression, bipolar disorder, hypertension, anxiety disorder that presented with cardiac arrest in the field (downtime unknown) due to multi-drug overdose, with two further episodes of cardiac arrest on arrival, and witnessed seizure prior to initiation of increased sedation and paralytics. Remains off paralytics, but remains on high doses of sedatives due to multiple witnessed seizures, concerning for likely Status Epilepticus. Will require transfer to center with 24-hour continuous EEG monitoring, so far denied at [facility] and [facility]. Was pending Trach/G-tube placement today, but now refusing due to his condition. Prognosis is poor. Plan: Neuro: -continued to seize despite sedation with Propofol/Versed and seizure ppx with Dilantin/Keppra, concerning for status epilepticus; Fentanyl re-added for sedation, and Valproic acid added for seizure ppx/tx -MRI brain notable for likely anoxic injury in thalamix area bilaterally -No longer actively cooling, maintain normothermia -Urine toxicology on admission positive for opiates, barbiturates and benzos -Seizure precautions, ppx with Keppra 1000mg IV q12, Dilantin 100mg TID, and now Valproic acid IV 500mg q12 -Neurology consulted - Dr. Rene, appreciate all recs; poor prognosis given burst suppression pattern on EEG with seizure when weaned from sedation, likely status epilepticus given persisting seizures, needs 24-hour EEG monitoring for Status, which will require a transfer -[facility] and [facility] both declined transfer for 24- hour EEG monitoring -Poison control following Pulm: -Satting 95-100%, ABG this AM reviewed, no longer alkalotic, continue current management -CXR this AM reviewed, improved L>R as compared to CXR yesterday -Currently on PRVC, tolerating pressure support, continue to monitor Cardio: -Off all pressor support >7 days, maintaining MAP > 65 consistently -Tachycardic 100's since yesterday, possibly rebound from precedex d/c -Troponins increased from <0.01 to 0.13 on admission -most recent EKG 03/13, notable for sinus halina to 48 and prolonged QTc at 537 ( unsurprising in setting of multi-drug abuse) -Cardiology consulted - Dr. Anderson -Echo ordered, notable for EF 54%, normal size/wall thickness LV, flattened septum, mild Pulm HTN/TR, mild RV dilation GI: -NPO -NGT placed, was pending G-tube but now refusing due to concerns regarding current condition -GI prophylaxis with protonix -LFTs improving -s/p x3 dosing of Acetadote as per Poison Control, no additional doses ordered -coffee-ground emesis on 03/20, 600cc drainage after NGT set to suction; no free air under the diaphragm or obstruction on Abd CXR; H Pylori antigen test ordered, empiric coverage with Flagyl (day 3, set for 8 day course), Protonix BID Renal: -Cr stable at 0.6, OTONIEL resolved -Hypernatremia resolved, Na today 145; free water flushes stopped due to GI bleed -Will continue to monitor and treat electrolyte abnormalities as indicated; persistently low K requiring chronic repletion -Monitor I's and O's -Nephro following, appreciate all recs Endo: -Fingersticks q4h -Maintain euglycemia between 140-180's ID: -multiple Blood and urine cultures drawn, remain negative -Most recent sputum (03/16) positive for light growth yeast, all other sputum cultures negative -Patient was empirically covered with Cefepime, Levofloxacin, and Vanco; all now d/c -No febrile temp overnight reported Heme: -Hgb 9.1, stool occult pending, iron panel wnl -SCDs for DVT ppx -Coags stable, INR 1.10 today Dispo: ICU, intubated/sedated, s/p seizure when weaning sedation, s/p EEG with burst-suppression pattern, s/p GI bleed suspected 2/2 ulceration from NGT; likely Status Epilepticus, requires 24-hour EEG monitoring, denied transfer to [facility] and [facility]; prognosis is very poor FEN: NPO, NS with KCl 40mEq at 100cc/hr Access: Peripheral IVs Consults: Neuro, Cardio, Nephro, Poison Control, Surgery Ppx: Protonix covers for GI, SCDs for DVT Patient seen, examined, and reviewed with attending, Dr. Tracy. <Abdulaziz Tracy - Last Filed: 03/22/17 17:38> CCU Objective - Vital Signs / Intake & Output Vital Signs (Last 4 hours): Vital Signs Temp Pulse BP Pulse Ox 03/22/17 17:00 110 H 127/67 99 03/22/17 16:50 106 H 96 03/22/17 16:40 101 H 97 03/22/17 16:30 102 H 97 03/22/17 16:20 102 H 96 03/22/17 16:10 103 H 96 03/22/17 16:00 99.2 F 105 H 123/55 L 96 03/22/17 15:50 106 H 95 03/22/17 15:40 104 H 97 03/22/17 15:30 110 H 96 03/22/17 15:20 110 H 96 03/22/17 15:10 107 H 96 03/22/17 15:00 109 H 122/61 96 03/22/17 14:50 107 H 97 03/22/17 14:40 109 H 96 03/22/17 14:30 106 H 96 03/22/17 14:20 107 H 96 03/22/17 14:10 107 H 96 03/22/17 14:00 105 H 125/61 96 03/22/17 13:50 110 H 97 03/22/17 13:40 109 H 97 Intake and Output (Last 8hrs): Intake & Output 03/22/17 03/22/17 03/22/17 06:59 14:59 22:59 Intake Total 3705 600 200 Output Total 2450 2500 Balance 1255 600 -2300 Weight 227 lb 4.8 oz 227 lb Intake: IV 3705 600 200 Left Antecubital 2040 Left Hand 965 Tube Feeding 0 Output: Gastric Amount 650 Nares 650 Urine 1800 2500 Urethral ([place]ment[place]) 1800 2500 Other: # Bowel Movements 2 - Medications Active Medications: Active Medications Generic Name Dose Route Start Last Admin Trade Name Freq PRN Reason Stop Dose Admin Albuterol/Ipratropium 3 ml 03/13/17 15:07 03/13/17 15:45 Duoneb 3 Mg/0.5 Mg (3 Ml) Ud IH 3 ml Q2H PRN Administration Shortness of Breath Albuterol/Ipratropium 3 ml 03/13/17 20:00 03/22/17 13:26 Duoneb 3 Mg/0.5 Mg (3 Ml) Ud IH 3 ml [id number] MARICHUY Administration Chlorhexidine Gluconate 15 ml 03/13/17 10:00 03/22/17 12:07 Peridex PO 15 ml BID MARICHUY Administration Propofol 1,000 mg in 100 mls @ 3.674 mls/hr 03/12/17 07:41 03/22/17 16:56 Diprivan IV 50 mcg/kg/min .Q24H PRN 36.741 mls/hr TITRATE PER MD ORDER Administration Protocol 5 MCG/KG/MIN Levetiracetam 1,000 mg/ Sodium 110 mls @ 460 mls/hr 03/12/17 22:00 03/22/17 09:40 Chloride IV 460 mls/hr Q12 MARICHUY Administration Potassium Chloride 40 meq/ 1,020 mls @ 100 mls/hr 03/17/17 21:40 03/22/17 09: 39 Sodium Chloride IV 100 mls/hr .[id number] MARICHUY Administration Phenytoin 100 mg/ Sodium 52 mls @ 104 mls/hr 03/18/17 10:00 03/22/17 13:13 Chloride IVPB 104 mls/hr TID MARICHUY Administration Metronidazole 500 mg in 100 mls @ 100 mls/hr 03/20/17 14:00 03/22/17 13:08 Flagyl IVPB 03/28/17 14:01 100 mls/hr Q8 MARICHUY Administration Protocol Valproate Sodium 500 mg/ 105 mls @ 100 mls/hr 03/21/17 14:00 03/22/17 13:13 Sodium Chloride IVPB 100 mls/hr Q8 MARICHUY Administration Fentanyl Citrate 1,000 mcg in 100 mls @ 2 mls/hr 03/21/17 15:18 03/22/17 13: 23 Fentanyl Citrate/Sodium Chloride 1 Mg/100 Ml IV 200 mcg/hr .Q24H PRN 20 mls/hr TITRATE PER MD ORDER Administration Protocol 20 MCG/HR Midazolam 100 mg/100ml in NS 100 mg in 100 mls @ 20 mls/hr 03/21/17 17:30 16:53 Midazolam 100 Mg/100ml In Ns IV 30 mg/hr .Q5H PRN 30 mls/hr Sedation Administration Protocol 20 MG/HR Dextrose 1,000 mls @ 100 mls/hr 03/22/17 09:10 03/22/17 09:42 Dextrose 5% In Water 1000 Ml IV 100 mls/hr .Q10H MARICHUY Administration Metoprolol Tartrate 5 mg 03/21/17 16:38 Lopressor IVP Q4 PRN sbp>160 or HR > 130 BPM Pantoprazole Sodium 40 mg 03/20/17 22:00 03/22/17 09:41 Protonix Inj IVP 40 mg Q12 MARICHUY Administration - Patient Studies Lab Studies: Microbiology Studies 03/20/17 13:30 Blood Culture - Preliminary Blood NO GROWTH AFTER 48 HOURS 03/20/17 13:30 Blood Culture - Preliminary Blood NO GROWTH AFTER 48 HOURS 03/20/17 14:00 Urine Culture - Final Urine,Catheterized No Growth (<1,000 CFU/ML) 03/16/17 22:00 Blood Culture - Final Blood-Venous NO GROWTH AFTER 5 DAYS Gram Stain - Final TEST NOT PERFORMED 03/16/17 21:30 Blood Culture - Final Blood-Venous NO GROWTH AFTER 5 DAYS Gram Stain - Final TEST NOT PERFORMED Lab Studies 03/22/17 03/22/17 03/22/17 Range/Units 06:30 06:24 05:30 WBC (4.5-11.0) 10^3/ul RBC (3.5-6.1) 10^6/uL Hgb (14.0-18.0) g/dL Hct (42.0-52.0) % MCV (80.0-105.0) fl MCH (25.0-35.0) pg MCHC (31.0-37.0) g/dl RDW (11.5-14.5) % Plt Count (120.0-450.0) 10^3/uL MPV (7.0-11.0) fl Gran % (50.0-68.0) % Lymph % (Auto) (22.0-35.0) % [place] % (Auto) (1.0-6.0) % Eos % (Auto) (1.5-5.0) % Baso % (Auto) (0.0-3.0) % Gran # (1.4-6.5) Lymph # (1.2-3.4) [place] # (0.1-0.6) Eos # (0.0-0.7) Baso # (0.0-2.0) K/mm3 PT 11.9 H (9.9-11.8) Seconds INR 1.10 H (0.93-1.08) APTT 24.9 (23.7-30.8) Seconds pCO2 41 (35-45) mm/Hg pO2 108.0 H (80-100) mm/Hg HCO3 23.2 (21-28) mmol/L ABG pH 7.36 (7.35-7.45) ABG Total CO2 24.5 (22-28) mmol.L ABG O2 Saturation 98.7 H (95-98) % ABG O2 Content 12.6 L (15-23) ML/dl ABG Base Excess -2.1 L (-2.0-3.0) mmol/L ABG Hemoglobin 9.2 L (11.7-17.4) g/dL ABG Carboxyhemoglobin 1.7 H (0.5-1.5) % POC ABG HHb (Measured) 1.3 (0-5) % ABG Methemoglobin 1.2 (0.0-3.0) % ABG O2 Capacity 12.8 L (16-24) mL/dl Hgb O2 Saturation 95.8 (95.0-98.0) % FiO2 40.0 % Sodium (132-148) mmol/L Potassium (3.6-5.0) mmol/L Chloride (98-107) mmol/L Carbon Dioxide (21-33) mmol/L Anion Gap (10-20) BUN (7-21) mg/dL Creatinine (0.8-1.5) mg/dL Est GFR ( Amer) Est GFR (Non-Af Amer) Random Glucose (70-110) mg/dL Calcium (8.4-10.5) mg/dL Phosphorus (2.5-4.5) mg/dL Magnesium (1.7-2.2) mg/dL Total Bilirubin (0.2-1.3) mg/dL AST (17-59) U/L ALT (7-56) U/L Alkaline Phosphatase (38-126) U/L Total Protein (5.8-8.3) g/dL Albumin (3.0-4.8) g/dL Globulin gm/dL Albumin/Globulin Ratio (1.1-1.8) Triglycerides (35-160) mg/dL Stool Occult Blood Negative (NEGATIVE) 03/22/17 03/22/17 Range/Units 05:30 05:30 WBC 11.0 D (4.5-11.0) 10^3/ul RBC 3.20 L (3.5-6.1) 10^6/uL Hgb 9.1 L (14.0-18.0) g/dL Hct 28.0 L (42.0-52.0) % MCV 87.5 (80.0-105.0) fl MCH 28.4 (25.0-35.0) pg MCHC 32.5 (31.0-37.0) g/dl RDW 14.1 (11.5-14.5) % Plt Count 228 (120.0-450.0) 10^3/uL MPV 10.1 (7.0-11.0) fl Gran % 58.3 (50.0-68.0) % Lymph % (Auto) 22.1 (22.0-35.0) % [place] % (Auto) 13.5 H (1.0-6.0) % Eos % (Auto) 5.8 H (1.5-5.0) % Baso % (Auto) 0.3 (0.0-3.0) % Gran # 6.42 (1.4-6.5) Lymph # 2.4 (1.2-3.4) [place] # 1.5 H (0.1-0.6) Eos # 0.6 (0.0-0.7) Baso # 0.03 (0.0-2.0) K/mm3 PT (9.9-11.8) Seconds INR (0.93-1.08) APTT (23.7-30.8) Seconds pCO2 (35-45) mm/Hg pO2 (80-100) mm/Hg HCO3 (21-28) mmol/L ABG pH (7.35-7.45) ABG Total CO2 (22-28) mmol.L ABG O2 Saturation (95-98) % ABG O2 Content (15-23) ML/dl ABG Base Excess (-2.0-3.0) mmol/L ABG Hemoglobin (11.7-17.4) g/dL ABG Carboxyhemoglobin (0.5-1.5) % POC ABG HHb (Measured) (0-5) % ABG Methemoglobin (0.0-3.0) % ABG O2 Capacity (16-24) mL/dl Hgb O2 Saturation (95.0-98.0) % FiO2 % Sodium 145 (132-148) mmol/L Potassium 3.7 (3.6-5.0) mmol/L Chloride 111 H (98-107) mmol/L Carbon Dioxide 24 (21-33) mmol/L Anion Gap 14 (10-20) BUN 12 (7-21) mg/dL Creatinine 0.6 L (0.8-1.5) mg/dL Est GFR ( Amer) > 60 Est GFR (Non-Af Amer) > 60 Random Glucose 90 (70-110) mg/dL Calcium 8.8 (8.4-10.5) mg/dL Phosphorus 4.1 (2.5-4.5) mg/dL Magnesium 1.5 L (1.7-2.2) mg/dL Total Bilirubin 0.9 (0.2-1.3) mg/dL AST 83 H (17-59) U/L ALT 78 H (7-56) U/L Alkaline Phosphatase 94 (38-126) U/L Total Protein 6.7 (5.8-8.3) g/dL Albumin 3.2 (3.0-4.8) g/dL Globulin 3.5 gm/dL Albumin/Globulin Ratio 0.9 L (1.1-1.8) Triglycerides 724 H (35-160) mg/dL Stool Occult Blood (NEGATIVE) Laboratory Results - last 24 hr 03/22/17 03/22/17 03/22/17 05:30 05:30 05:30 WBC 11.0 D RBC 3.20 L Hgb 9.1 L Hct 28.0 L MCV 87.5 MCH 28.4 MCHC 32.5 RDW 14.1 Plt Count 228 MPV 10.1 Gran % 58.3 Lymph % (Auto) 22.1 [place] % (Auto) 13.5 H Eos % (Auto) 5.8 H Baso % (Auto) 0.3 Gran # 6.42 Lymph # 2.4 [place] # 1.5 H Eos # 0.6 Baso # 0.03 PT 11.9 H INR 1.10 H APTT 24.9 pCO2 pO2 HCO3 ABG pH ABG Total CO2 ABG O2 Saturation ABG O2 Content ABG Base Excess ABG Hemoglobin ABG Carboxyhemoglobin POC ABG HHb (Measured) ABG Methemoglobin ABG O2 Capacity Hgb O2 Saturation FiO2 Sodium 145 Potassium 3.7 Chloride 111 H Carbon Dioxide 24 Anion Gap 14 BUN 12 Creatinine 0.6 L Est GFR ( Amer) > 60 Est GFR (Non-Af Amer) > 60 Random Glucose 90 Calcium 8.8 Phosphorus 4.1 Magnesium 1.5 L Total Bilirubin 0.9 AST 83 H ALT 78 H Alkaline Phosphatase 94 Total Protein 6.7 Albumin 3.2 Globulin 3.5 Albumin/Globulin Ratio 0.9 L Triglycerides 724 H Stool Occult Blood 03/22/17 03/22/17 06:24 06:30 WBC RBC Hgb Hct MCV MCH MCHC RDW Plt Count MPV Gran % Lymph % (Auto) [place] % (Auto) Eos % (Auto) Baso % (Auto) Gran # Lymph # [place] # Eos # Baso # PT INR APTT pCO2 41 pO2 108.0 H HCO3 23.2 ABG pH 7.36 ABG Total CO2 24.5 ABG O2 Saturation 98.7 H ABG O2 Content 12.6 L ABG Base Excess -2.1 L ABG Hemoglobin 9.2 L ABG Carboxyhemoglobin 1.7 H POC ABG HHb (Measured) 1.3 ABG Methemoglobin 1.2 ABG O2 Capacity 12.8 L Hgb O2 Saturation 95.8 FiO2 40.0 Sodium Potassium Chloride Carbon Dioxide Anion Gap BUN Creatinine Est GFR ( Amer) Est GFR (Non-Af Amer) Random Glucose Calcium Phosphorus Magnesium Total Bilirubin AST ALT Alkaline Phosphatase Total Protein Albumin Globulin Albumin/Globulin Ratio Triglycerides Stool Occult Blood Negative Critical Care Progress Note - Nutrition Nutrition: Nutrition Category Date Time Status NPO Diet [DIET] Diets 03/14/17 Breakfast Ordered Attending/Attestation - Attestation I have personally seen and examined this patient.: Yes I have fully participated in the care of the patient.: Yes I have reviewed all pertinent clinical information: Yes Notes (Text): 03/22/17 17:34 36 yo male with anoxic brain injury and related to it clinical seziures upon attempt to wean off sedation (BENJI-ergic drips), intubated, on PRVC mode. Patient was denied transfer for cont EEG monitoring at [facility] and [facility]. Will try [facility] and [place]. Neurosurgery service was aware and agreed. Protective lung vent strategy, HOB>35 in neutral position, euvolemia, euglycemia and 02sat> 93%. DVT/GI prophylaxis ccm time 40 min
[2017-03-22] MEDS: Chlorhexidine 0.12% Oral Sol 480 ml Bot PO SCH ×2 (12:07→18:11)
--- NOTE | 2017-03-22 12:12 | CP.PCM.PN ---
<Zac Archer - Last Filed: 03/22/17 12:48> Subjective - Date & Time of Evaluation Date of Evaluation: 03/22/17 Time of Evaluation: 08:12 - Subjective Subjective: Patient seen and examined at bedside this morning. Per nursing the patient had two seizures overnight. The patients scheduled Tracheostomy and gastrostomy have been put on hold until the patient is stabilized. ROS unobtainable due to current clinical condition. Objective - Vital Signs/Intake and Output Vital Signs (last 24 hours): Temp Pulse Resp BP Pulse Ox 99 F 107 H 16 137/68 98 03/22/17 08:00 03/22/17 11:10 03/22/17 01:20 03/22/17 11:00 03/22/17 11:10 Intake and Output: 03/22/17 03/22/17 06:59 18:59 Intake Total 4005 300 Output Total 2450 Balance 1555 300 - Medications Medications: Current Medications Albuterol/Ipratropium (Duoneb 3 Mg/0.5 Mg (3 Ml) Ud) 3 ml IH Q2H PRN PRN Reason: Shortness of Breath Last Admin: 03/13/17 15:45 Dose: 3 ml Albuterol/Ipratropium (Duoneb 3 Mg/0.5 Mg (3 Ml) Ud) 3 ml IH [id number] [facility] Last Admin: 03/22/17 07:30 Dose: 3 ml Chlorhexidine Gluconate (Peridex) 15 ml PO BID [facility] Last Admin: 03/22/17 12:07 Dose: 15 ml Propofol (Diprivan) 1,000 mg in 100 mls @ 3.674 mls/hr IV .Q24H PRN; Protocol; 5 MCG/KG/MIN PRN Reason: TITRATE PER MD ORDER Last Admin: 03/22/17 11:39 Dose: 50 mcg/kg/min, 36.741 mls/hr Levetiracetam 1,000 mg/ Sodium (Chloride) 110 mls @ 460 mls/hr IV Q12 [facility] Last Admin: 03/22/17 09:40 Dose: 460 mls/hr Potassium Chloride 40 meq/ (Sodium Chloride) 1,020 mls @ 100 mls/hr IV .[id number] [facility] Last Admin: 03/22/17 09:39 Dose: 100 mls/hr Phenytoin 100 mg/ Sodium (Chloride) 52 mls @ 104 mls/hr IVPB TID [facility] Last Admin: 03/22/17 09:37 Dose: 104 mls/hr Metronidazole (Flagyl) 500 mg in 100 mls @ 100 mls/hr IVPB Q8 [facility] PRN Reason: Protocol Last Admin: 03/22/17 05:52 Dose: 100 mls/hr Valproate Sodium 500 mg/ (Sodium Chloride) 105 mls @ 100 mls/hr IVPB Q8 [facility] Last Admin: 03/22/17 05:23 Dose: 100 mls/hr Fentanyl Citrate (Fentanyl Citrate/Sodium Chloride 1 Mg/100 Ml) 1,000 mcg in 100 mls @ 2 mls/hr IV .Q24H PRN; Protocol; 20 MCG/HR PRN Reason: TITRATE PER MD ORDER Last Admin: 03/22/17 08:29 Dose: 200 mcg/hr, 20 mls/hr Midazolam 100 mg/100ml in NS (Midazolam 100 Mg/100ml In Ns) 100 mg in 100 mls @ 20 mls/hr IV .Q5H PRN; Protocol; 20 MG/HR PRN Reason: Sedation Last Admin: 03/22/17 09:35 Dose: 30 mg/hr, 30 mls/hr Dextrose (Dextrose 5% In Water 1000 Ml) 1,000 mls @ 100 mls/hr IV .Q10H [facility] Last Admin: 03/22/17 09:42 Dose: 100 mls/hr Magnesium Sulfate 2 gm/ Sodium (Chloride) 104 mls @ 102 mls/hr IVPB Q3H [facility] Stop: 03/22/17 14:02 Last Admin: 03/22/17 12:05 Dose: 102 mls/hr Metoprolol Tartrate (Lopressor) 5 mg IVP Q4 PRN PRN Reason: sbp>160 or HR > 130 BPM Pantoprazole Sodium (Protonix Inj) 40 mg IVP Q12 [facility] Last Admin: 03/22/17 09:41 Dose: 40 mg - Labs Labs: 03/22/17 05:30 03/22/17 05:30 PT 11.9 Seconds (9.9-11.8) H 03/22/17 05:30 INR 1.10 (0.93-1.08) H 03/22/17 05:30 APTT 24.9 Seconds (23.7-30.8) 03/22/17 05:30 - Head Exam Head Exam: ATRAUMATIC, NORMAL INSPECTION, NORMOCEPHALIC - Eye Exam Eye Exam: EOMI, Normal appearance, PERRL. absent: Periorbital tenderness Pupil Exam: NORMAL ACCOMODATION, PERRL. absent: Irregular, Unequal - ENT Exam ENT Exam: Mucous Membranes Moist, Normal Exam. absent: Normal Oropharynx, TM's Normal Bilaterally - Neck Exam Neck Exam: Normal Inspection. absent: Lymphadenopathy, Thyromegaly - Respiratory Exam Respiratory Exam: Clear to Ausculation Bilateral, NORMAL BREATHING PATTERN. absent: Chest Wall Tenderness, Prolonged Expiratory Phase, Respiratory Distress - Cardiovascular Exam Cardiovascular Exam: REGULAR RHYTHM, RRR, +S1, +S2. absent: Gallop, Rubs - GI/Abdominal Exam GI & Abdominal Exam: Soft, Normal Bowel Sounds. absent: Tenderness, Hyperactive Bowel Sounds - Extremities Exam Extremities Exam: Normal Capillary Refill. absent: Full ROM, Joint Swelling, Pedal Edema, Tenderness - Back Exam Back Exam: absent: CVA tenderness (L), CVA tenderness (R), NORMAL INSPECTION, paraspinal tenderness - Neurological Exam Neurological Exam: Altered. absent: Alert, Awake, CN II-XII Intact, Normal Gait , Oriented x3 - Skin Skin Exam: Dry, Intact Assessment and Plan - Assessment and Plan (Free Text) Plan: Neuro: -Patient intubated and unresponsive on sedative medication -Continue to Maintain temp ~92-94F -Neurochecks q2h -Urine toxicology positive for opiates, barbiturates and benzos -CT Head (-). Seen by Neurology. -Repeat EEG demonstrates anoxic brain injury and poor prognosis. -Brain MRI showed anoxic injury in thalamic region bilaterally. -Will continue to attempt weaning trials -Continue Seizure precautions -Neuro status hard to determine due to sedation. Will reassess once sedation is weaned off. -Overnight patient had two seizures. Patient's Fentanyl increased to 200mcg/ hr. Will continue to monitor. -Patient scheduled tracheostomy and gastrostomy procedures put on hold due to overnight seizures. Patient will be stabilized prior to going to O.R. Cardio: -Continue propofol and Midozalam with goal MAP > 70 -EKG reviewed; atrial fibrillation with slow ventricular response (51bpm), nonspecific intraventricular block -F/U with Cardiology recs. Pulm: -Failed CPAP trial, will remain on full ventilatory support. Patient expected to undergo Tracheostomy on Wednesday. -ABG and CXR reviewed -patient pO2 stable. Patient's FiO2 remains at 40%. Will monitor closely. -Continue serial CXR and ABG. GI: -NPO -NGT -Protonix Renal: -Hypernatremic resolved. Will continue to monitor closely. -Hypokalemia (3.7 today) Resolved. Will replete as needed. -Will continue to monitor and treat electrolyte abnormalities as indicated -Monitor I's and O's Endo: -Fingersticks q2h -Maintain euglycemia between 140-180's -Stress dose steroids, tapering ID: -Afebrile, leukocytosis improving.Continue Metronidazole. -Sputum culture grew Yeast species. Remaining Cultures negative at this time -Full course of abx given, will D/C at this time GI/DVT Prophylaxis -Protonix/SCD's <Miguel Carlos - Last Filed: 03/23/17 13:25> Objective - Vital Signs/Intake and Output Vital Signs (last 24 hours): Temp Pulse Resp BP Pulse Ox 100.2 F H 121 H 19 116/77 96 03/23/17 11:37 03/23/17 11:37 03/23/17 11:37 03/23/17 11:37 03/23/17 11:37 Intake and Output: 03/23/17 03/23/17 06:59 18:59 Intake Total 4100 100 Output Total 3150 Balance 950 100 - Medications Medications: Current Medications Acetaminophen (Tylenol 325 Mg Supp) 325 mg RC Q4H PRN PRN Reason: Fever >100.4 F Last Admin: 03/22/17 21:00 Dose: 325 mg Albuterol/Ipratropium (Duoneb 3 Mg/0.5 Mg (3 Ml) Ud) 3 ml IH Q2H PRN PRN Reason: Shortness of Breath Last Admin: 03/13/17 15:45 Dose: 3 ml Albuterol/Ipratropium (Duoneb 3 Mg/0.5 Mg (3 Ml) Ud) 3 ml IH [id number] [facility] Last Admin: 03/23/17 07:55 Dose: 3 ml Chlorhexidine Gluconate (Peridex) 15 ml PO BID [facility] Last Admin: 03/23/17 11:00 Dose: 15 ml Propofol (Diprivan) 1,000 mg in 100 mls @ 3.674 mls/hr IV .Q24H PRN; Protocol; 5 MCG/KG/MIN PRN Reason: TITRATE PER MD ORDER Last Admin: 03/23/17 06:15 Dose: 50 mcg/kg/min, 36.741 mls/hr Levetiracetam 1,000 mg/ Sodium (Chloride) 110 mls @ 460 mls/hr IV Q12 [facility] Last Admin: 03/23/17 09:31 Dose: 460 mls/hr Potassium Chloride 40 meq/ (Sodium Chloride) 1,020 mls @ 100 mls/hr IV .[id number] [facility] Last Admin: 03/22/17 09:39 Dose: 100 mls/hr Phenytoin 100 mg/ Sodium (Chloride) 52 mls @ 104 mls/hr IVPB TID [facility] Last Admin: 03/23/17 09:31 Dose: 104 mls/hr Metronidazole (Flagyl) 500 mg in 100 mls @ 100 mls/hr IVPB Q8 [facility] PRN Reason: Protocol Stop: 03/28/17 14:01 Last Admin: 03/23/17 05:31 Dose: 100 mls/hr Valproate Sodium 500 mg/ (Sodium Chloride) 105 mls @ 100 mls/hr IVPB Q8 [facility] Last Admin: 03/23/17 05:29 Dose: 100 mls/hr Fentanyl Citrate (Fentanyl Citrate/Sodium Chloride 1 Mg/100 Ml) 1,000 mcg in 100 mls @ 2 mls/hr IV .Q24H PRN; Protocol; 20 MCG/HR PRN Reason: TITRATE PER MD ORDER Last Admin: 03/23/17 08:05 Dose: 200 mcg/hr, 20 mls/hr Midazolam 100 mg/100ml in NS (Midazolam 100 Mg/100ml In Ns) 100 mg in 100 mls @ 20 mls/hr IV .Q5H PRN; Protocol; 20 MG/HR PRN Reason: Sedation Last Admin: 03/23/17 06:18 Dose: 30 mg/hr, 30 mls/hr Magnesium Sulfate 2 gm/ Sodium (Chloride) 104 mls @ 102 mls/hr IVPB Q3 [facility] Stop: 03/23/17 16:02 Last Admin: 03/23/17 11:29 Dose: 102 mls/hr Acetaminophen (Ofirmev) 1,000 mg in 100 mls @ 400 mls/hr IVPB Q6H PRN PRN Reason: Temperature > 100.4F Stop: 03/25/17 08:33 Last Admin: 03/23/17 09:15 Dose: 400 mls/hr Vancomycin HCl (Vancomycin 1gm) 1 gm in 250 mls @ 167 mls/hr IVPB Q12H [facility] PRN Reason: Protocol Last Admin: 03/23/17 11:32 Dose: 167 mls/hr Piperacillin Sod/Tazobactam Sod (Zosyn 4.5 Gm In Ns 100ml) 4.5 gm in 100 mls @ 200 mls/hr IVPB Q6 [facility] PRN Reason: Protocol Stop: 03/23/17 18:29 Metoprolol Tartrate (Lopressor) 5 mg IVP Q4 PRN PRN Reason: sbp>160 or HR > 130 BPM Pantoprazole Sodium (Protonix Inj) 40 mg IVP Q12 [facility] Last Admin: 03/23/17 09:33 Dose: 40 mg - Labs Labs: 03/23/17 05:20 03/23/17 05:20 PT 11.9 Seconds (9.9-11.8) H 03/22/17 05:30 INR 1.10 (0.93-1.08) H 03/22/17 05:30 APTT 24.9 Seconds (23.7-30.8) 03/22/17 05:30 Attending/Attestation - Attestation I have personally seen and examined this patient.: Yes I have fully participated in the care of the patient.: Yes I have reviewed all pertinent clinical information, including history, physical exam and plan: Yes Notes (Text): 03/23/17 13:25 Patient was seen and examined with certified medical technician. Family is at bed side. 36 year old male with past medical history of depression, anxiety, hypertension , and substance abuse who presented with cardiac arrest secondary to suspected drug overdose. Urine drug screen was positive for opiates, barbituates and benzodiazepines. He is currently intubated, had clinical seziures upon attempt to wean off sedation (BENJI-ergic drips), intubated, on PRVC mode. Patient was denied transfer for cont EEG monitoring at [facility] and [place].MRI brain showed signs of anoxic injury. Neurology is following the patient. He was also initially found to have renal insufficiency and elevated LFTs which are improving. Protective lung vent strategy, HOB>35 in neutral position, euvolemia, euglycemia and 02sat>93%. DVT/GI prophylaxis Prognosis is guarded. 03/23/17 13:25
--- NOTE | 2017-03-22 22:27 | CP.PCM.PN ---
Objective - Vital Signs/Intake and Output Vital Signs (last 24 hours): Temp Pulse Resp BP Pulse Ox 101.4 F H 123 H 21 142/75 98 03/22/17 21:00 03/22/17 20:00 03/22/17 20:00 03/22/17 20:00 03/22/17 20:00 Intake and Output: 03/22/17 03/23/17 18:59 06:59 Intake Total 900 100 Output Total 2500 Balance -1600 100 - Medications Medications: Current Medications Acetaminophen (Tylenol 325 Mg Supp) 325 mg RC Q4H PRN PRN Reason: Fever >100.4 F Last Admin: 03/22/17 21:00 Dose: 325 mg Albuterol/Ipratropium (Duoneb 3 Mg/0.5 Mg (3 Ml) Ud) 3 ml IH Q2H PRN PRN Reason: Shortness of Breath Last Admin: 03/13/17 15:45 Dose: 3 ml Albuterol/Ipratropium (Duoneb 3 Mg/0.5 Mg (3 Ml) Ud) 3 ml IH [id number] [facility] Last Admin: 03/22/17 20:05 Dose: 3 ml Chlorhexidine Gluconate (Peridex) 15 ml PO BID [facility] Last Admin: 03/22/17 18:11 Dose: 15 ml Propofol (Diprivan) 1,000 mg in 100 mls @ 3.674 mls/hr IV .Q24H PRN; Protocol; 5 MCG/KG/MIN PRN Reason: TITRATE PER MD ORDER Last Admin: 03/22/17 19:43 Dose: 50 mcg/kg/min, 36.741 mls/hr Levetiracetam 1,000 mg/ Sodium (Chloride) 110 mls @ 460 mls/hr IV Q12 [facility] Last Admin: 03/22/17 21:58 Dose: 460 mls/hr Potassium Chloride 40 meq/ (Sodium Chloride) 1,020 mls @ 100 mls/hr IV .[id number] [facility] Last Admin: 03/22/17 09:39 Dose: 100 mls/hr Phenytoin 100 mg/ Sodium (Chloride) 52 mls @ 104 mls/hr IVPB TID [facility] Last Admin: 03/22/17 18:09 Dose: 104 mls/hr Metronidazole (Flagyl) 500 mg in 100 mls @ 100 mls/hr IVPB Q8 [facility] PRN Reason: Protocol Stop: 03/28/17 14:01 Last Admin: 03/22/17 21:42 Dose: 100 mls/hr Valproate Sodium 500 mg/ (Sodium Chloride) 105 mls @ 100 mls/hr IVPB Q8 [facility] Last Admin: 03/22/17 21:59 Dose: 100 mls/hr Fentanyl Citrate (Fentanyl Citrate/Sodium Chloride 1 Mg/100 Ml) 1,000 mcg in 100 mls @ 2 mls/hr IV .Q24H PRN; Protocol; 20 MCG/HR PRN Reason: TITRATE PER MD ORDER Last Admin: 03/22/17 18:10 Dose: 200 mcg/hr, 20 mls/hr Midazolam 100 mg/100ml in NS (Midazolam 100 Mg/100ml In Ns) 100 mg in 100 mls @ 20 mls/hr IV .Q5H PRN; Protocol; 20 MG/HR PRN Reason: Sedation Last Admin: 03/22/17 16:53 Dose: 30 mg/hr, 30 mls/hr Dextrose (Dextrose 5% In Water 1000 Ml) 1,000 mls @ 100 mls/hr IV .Q10H [facility] Last Admin: 03/22/17 09:42 Dose: 100 mls/hr Metoprolol Tartrate (Lopressor) 5 mg IVP Q4 PRN PRN Reason: sbp>160 or HR > 130 BPM Pantoprazole Sodium (Protonix Inj) 40 mg IVP Q12 [facility] Last Admin: 03/22/17 22:00 Dose: 40 mg - Labs Labs: 03/22/17 05:30 03/22/17 05:30 PT 11.9 Seconds (9.9-11.8) H 03/22/17 05:30 INR 1.10 (0.93-1.08) H 03/22/17 05:30 APTT 24.9 Seconds (23.7-30.8) 03/22/17 05:30 Assessment and Plan (1) Acute renal failure Status: Acute (2) ARDS (adult respiratory distress syndrome) Status: Acute (3) Polyuria Status: Acute (4) Electrolyte imbalance Status: Acute
[2017-03-23] MEDS: Albuterol-Ipratrop 3 mg / 0.5 (3 ml) UD IH SCH ×4 (03:02→19:52)
[2017-03-23] MEDS: Midazolam 100 mg/100ml in NS 100 MG/100 ML SOL IV PRN ×4 (03:23→23:37)
[2017-03-23] MEDS: Propofol 10 mg/ml 1,000 MG/100 ML VIAL IV PRN ×4 (03:27→22:00)
[2017-03-23] MEDS: Fentanyl 1000mcg/100ml NS 1,000 MCG/100 ML BAG IV PRN ×5 (03:31→23:37)
[2017-03-23] MEDS: Valproate 500 MG in Sodium Chloride 0.9% 100 ML IVPB SCH ×3 (05:29→22:46)
[2017-03-23] MEDS: metroNIDAZOLE IV 500 mg/100 ml 500 MG/100 ML BAG IVPB SCH ×3 (05:31→22:09)
[2017-03-23 06:26] LABS: HEMATOCRIT 28.5 % (42.0-52.0); MEAN CELL VOLUME 87.7 fl (80.0-105.0); MEAN CORPUSCULAR HEMOGLOBIN 28.9 pg (25.0-35.0); MEAN PLATELET VOLUME 10.1 fl (7.0-11.0); RED CELL DISTRIBUTION WIDTH 13.8 % (11.5-14.5); WHITE BLOOD COUNT 12.8 10^3/ul (4.5-11.0)
[2017-03-23 06:42] LABS: ARTERIAL BLOOD GAS PH 7.42 (7.35-7.45)
[2017-03-23 06:43] LABS: ALB/GLOB RATIO 0.9 (1.1-1.8); ALKALINE PHOSPHATASE 106 U/L (38-126); ALT/SGPT 97 U/L (7-56); AST/SGOT 97 U/L (17-59); BILIRUBIN,TOTAL 1.2 mg/dL (0.2-1.3); BLOOD UREA NITROGEN 8 mg/dL (7-21); CALCIUM 8.7 mg/dL (8.4-10.5); CARBON DIOXIDE 26 mmol/L (21-33); CHLORIDE 107 mmol/L (98-107); GFR AFRICAN-AMERICAN > 60; GLUCOSE,RANDOM 93 mg/dL (70-110); POTASSIUM 3.7 mmol/L (3.6-5.0); SODIUM 139 mmol/L (132-148); TOTAL PROTEIN 7.1 g/dL (5.8-8.3)
[2017-03-23 08:02] LABS: MAGNESIUM 1.3 mg/dL (1.7-2.2); PHOSPHOROUS 3.5 mg/dL (2.5-4.5)
[2017-03-23] MEDS: Magnesium Sulfate 2 GM in Sodium Chloride 0.9% 100 ML IVPB SCH ×3 (09:30→17:01)
[2017-03-23] MEDS: levETIRAcetam 1,000 MG in Sodium Chloride 0.9% 100 ML IV SCH ×2 (09:31→22:30)
--- NOTE | 2017-03-23 09:44 | RAD ---
HISTORY: intubated, possible fluid overload, f/u COMPARISON: 03/22/2017 FINDINGS: LUNGS: No active pulmonary disease. PLEURA: No significant pleural effusion identified, no pneumothorax apparent. CARDIOVASCULAR: Normal. OSSEOUS STRUCTURES: No significant abnormalities. VISUALIZED UPPER ABDOMEN: Normal. OTHER FINDINGS: The endotracheal and nasogastric tubes are unchanged IMPRESSION: No active disease.
[2017-03-23] MEDS: Chlorhexidine 0.12% Oral Sol 480 ml Bot PO SCH ×2 (11:00→18:36)
--- NOTE | 2017-03-23 11:00 | CP.PCM.PN ---
Subjective - Date & Time of Evaluation Date of Evaluation: 03/23/17 Time of Evaluation: 10:57 - Subjective Subjective: 36 yo M admitted w/ cardiac arrest after suicide attempt; now in status epilepticus despite being on multiple sedative agents; Patient spiking fever overnight; Objective - Vital Signs/Intake and Output Vital Signs (last 24 hours): Temp Pulse Resp BP Pulse Ox 101.6 F H 133 H 22 150/105 H 97 03/23/17 08:00 03/23/17 08:00 03/23/17 08:00 03/23/17 08:13 03/23/17 08:00 Intake and Output: 03/23/17 03/23/17 06:59 18:59 Intake Total 4100 100 Output Total 3150 Balance 950 100 - Medications Medications: Current Medications Acetaminophen (Tylenol 325 Mg Supp) 325 mg RC Q4H PRN PRN Reason: Fever >100.4 F Last Admin: 03/22/17 21:00 Dose: 325 mg Albuterol/Ipratropium (Duoneb 3 Mg/0.5 Mg (3 Ml) Ud) 3 ml IH Q2H PRN PRN Reason: Shortness of Breath Last Admin: 03/13/17 15:45 Dose: 3 ml Albuterol/Ipratropium (Duoneb 3 Mg/0.5 Mg (3 Ml) Ud) 3 ml IH [id number] [facility] Last Admin: 03/23/17 07:55 Dose: 3 ml Chlorhexidine Gluconate (Peridex) 15 ml PO BID [facility] Last Admin: 03/22/17 18:11 Dose: 15 ml Propofol (Diprivan) 1,000 mg in 100 mls @ 3.674 mls/hr IV .Q24H PRN; Protocol; 5 MCG/KG/MIN PRN Reason: TITRATE PER MD ORDER Last Admin: 03/23/17 06:15 Dose: 50 mcg/kg/min, 36.741 mls/hr Levetiracetam 1,000 mg/ Sodium (Chloride) 110 mls @ 460 mls/hr IV Q12 [facility] Last Admin: 03/23/17 09:31 Dose: 460 mls/hr Potassium Chloride 40 meq/ (Sodium Chloride) 1,020 mls @ 100 mls/hr IV .[id number] [facility] Last Admin: 03/22/17 09:39 Dose: 100 mls/hr Phenytoin 100 mg/ Sodium (Chloride) 52 mls @ 104 mls/hr IVPB TID [facility] Last Admin: 03/23/17 09:31 Dose: 104 mls/hr Metronidazole (Flagyl) 500 mg in 100 mls @ 100 mls/hr IVPB Q8 [facility] PRN Reason: Protocol Stop: 03/28/17 14:01 Last Admin: 03/23/17 05:31 Dose: 100 mls/hr Valproate Sodium 500 mg/ (Sodium Chloride) 105 mls @ 100 mls/hr IVPB Q8 [facility] Last Admin: 03/23/17 05:29 Dose: 100 mls/hr Fentanyl Citrate (Fentanyl Citrate/Sodium Chloride 1 Mg/100 Ml) 1,000 mcg in 100 mls @ 2 mls/hr IV .Q24H PRN; Protocol; 20 MCG/HR PRN Reason: TITRATE PER MD ORDER Last Admin: 03/23/17 08:05 Dose: 200 mcg/hr, 20 mls/hr Midazolam 100 mg/100ml in NS (Midazolam 100 Mg/100ml In Ns) 100 mg in 100 mls @ 20 mls/hr IV .Q5H PRN; Protocol; 20 MG/HR PRN Reason: Sedation Last Admin: 03/23/17 06:18 Dose: 30 mg/hr, 30 mls/hr Magnesium Sulfate 2 gm/ Sodium (Chloride) 104 mls @ 102 mls/hr IVPB Q3 [facility] Stop: 03/23/17 16:02 Last Admin: 03/23/17 09:30 Dose: 102 mls/hr Acetaminophen (Ofirmev) 1,000 mg in 100 mls @ 400 mls/hr IVPB Q6H PRN PRN Reason: Temperature > 100.4F Stop: 03/25/17 08:33 Last Admin: 03/23/17 09:15 Dose: 400 mls/hr Vancomycin HCl (Vancomycin 1gm) 1 gm in 250 mls @ 167 mls/hr IVPB Q12H [facility] PRN Reason: Protocol Piperacillin Sod/Tazobactam Sod (Zosyn 4.5 Gm In Ns 100ml) 4.5 gm in 100 mls @ 200 mls/hr IVPB Q6 [facility] PRN Reason: Protocol Stop: 03/23/17 18:29 Metoprolol Tartrate (Lopressor) 5 mg IVP Q4 PRN PRN Reason: sbp>160 or HR > 130 BPM Pantoprazole Sodium (Protonix Inj) 40 mg IVP Q12 [facility] Last Admin: 03/23/17 09:33 Dose: 40 mg - Labs Labs: 03/23/17 05:20 03/23/17 05:20 PT 11.9 Seconds (9.9-11.8) H 03/22/17 05:30 INR 1.10 (0.93-1.08) H 03/22/17 05:30 APTT 24.9 Seconds (23.7-30.8) 03/22/17 05:30 - Constitutional Appears: No Acute Distress - Head Exam Head Exam: NORMAL INSPECTION - Eye Exam Eye Exam: absent: Scleral icterus - ENT Exam ENT Exam: Mucous Membranes Moist - Respiratory Exam Respiratory Exam: absent: Rales, Rhonchi, Respiratory Distress - Cardiovascular Exam Cardiovascular Exam: REGULAR RHYTHM, +S1, +S2 - GI/Abdominal Exam GI & Abdominal Exam: Soft. absent: Distended - Extremities Exam Additional comments: only mild pedal edema; - Neurological Exam Neurological Exam: absent: Alert, Awake - Skin Skin Exam: Warm. 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
--- NOTE | 2017-03-23 11:23 | CP.PCM.PN ---
<Zac Archer - Last Filed: 03/23/17 16:10> Subjective - Date & Time of Evaluation Date of Evaluation: 03/23/17 Time of Evaluation: 07:20 - Subjective Subjective: Patient was seen and examined at bedside this morning. Per nursing the patient had 2 seizures overnight and spiked a fever. Patient remains intubated and peg and trach surgery put on hold for now. ROS unobtainable due to patient's current clinical condition. Objective - Vital Signs/Intake and Output Vital Signs (last 24 hours): Temp Pulse Resp BP Pulse Ox 101.6 F H 133 H 22 150/105 H 97 03/23/17 08:00 03/23/17 08:00 03/23/17 08:00 03/23/17 08:13 03/23/17 08:00 Intake and Output: 03/23/17 03/23/17 06:59 18:59 Intake Total 4100 100 Output Total 3150 Balance 950 100 - Medications Medications: Current Medications Acetaminophen (Tylenol 325 Mg Supp) 325 mg RC Q4H PRN PRN Reason: Fever >100.4 F Last Admin: 03/22/17 21:00 Dose: 325 mg Albuterol/Ipratropium (Duoneb 3 Mg/0.5 Mg (3 Ml) Ud) 3 ml IH Q2H PRN PRN Reason: Shortness of Breath Last Admin: 03/13/17 15:45 Dose: 3 ml Albuterol/Ipratropium (Duoneb 3 Mg/0.5 Mg (3 Ml) Ud) 3 ml IH [id number] [facility] Last Admin: 03/23/17 07:55 Dose: 3 ml Chlorhexidine Gluconate (Peridex) 15 ml PO BID [facility] Last Admin: 03/22/17 18:11 Dose: 15 ml Propofol (Diprivan) 1,000 mg in 100 mls @ 3.674 mls/hr IV .Q24H PRN; Protocol; 5 MCG/KG/MIN PRN Reason: TITRATE PER MD ORDER Last Admin: 03/23/17 06:15 Dose: 50 mcg/kg/min, 36.741 mls/hr Levetiracetam 1,000 mg/ Sodium (Chloride) 110 mls @ 460 mls/hr IV Q12 [facility] Last Admin: 03/23/17 09:31 Dose: 460 mls/hr Potassium Chloride 40 meq/ (Sodium Chloride) 1,020 mls @ 100 mls/hr IV .[id number] [facility] Last Admin: 03/22/17 09:39 Dose: 100 mls/hr Phenytoin 100 mg/ Sodium (Chloride) 52 mls @ 104 mls/hr IVPB TID [facility] Last Admin: 03/23/17 09:31 Dose: 104 mls/hr Metronidazole (Flagyl) 500 mg in 100 mls @ 100 mls/hr IVPB Q8 [facility] PRN Reason: Protocol Stop: 03/28/17 14:01 Last Admin: 03/23/17 05:31 Dose: 100 mls/hr Valproate Sodium 500 mg/ (Sodium Chloride) 105 mls @ 100 mls/hr IVPB Q8 [facility] Last Admin: 03/23/17 05:29 Dose: 100 mls/hr Fentanyl Citrate (Fentanyl Citrate/Sodium Chloride 1 Mg/100 Ml) 1,000 mcg in 100 mls @ 2 mls/hr IV .Q24H PRN; Protocol; 20 MCG/HR PRN Reason: TITRATE PER MD ORDER Last Admin: 03/23/17 08:05 Dose: 200 mcg/hr, 20 mls/hr Midazolam 100 mg/100ml in NS (Midazolam 100 Mg/100ml In Ns) 100 mg in 100 mls @ 20 mls/hr IV .Q5H PRN; Protocol; 20 MG/HR PRN Reason: Sedation Last Admin: 03/23/17 06:18 Dose: 30 mg/hr, 30 mls/hr Magnesium Sulfate 2 gm/ Sodium (Chloride) 104 mls @ 102 mls/hr IVPB Q3 [facility] Stop: 03/23/17 16:02 Last Admin: 03/23/17 09:30 Dose: 102 mls/hr Acetaminophen (Ofirmev) 1,000 mg in 100 mls @ 400 mls/hr IVPB Q6H PRN PRN Reason: Temperature > 100.4F Stop: 03/25/17 08:33 Last Admin: 03/23/17 09:15 Dose: 400 mls/hr Vancomycin HCl (Vancomycin 1gm) 1 gm in 250 mls @ 167 mls/hr IVPB Q12H [facility] PRN Reason: Protocol Piperacillin Sod/Tazobactam Sod (Zosyn 4.5 Gm In Ns 100ml) 4.5 gm in 100 mls @ 200 mls/hr IVPB Q6 [facility] PRN Reason: Protocol Stop: 03/23/17 18:29 Metoprolol Tartrate (Lopressor) 5 mg IVP Q4 PRN PRN Reason: sbp>160 or HR > 130 BPM Pantoprazole Sodium (Protonix Inj) 40 mg IVP Q12 [facility] Last Admin: 03/23/17 09:33 Dose: 40 mg - Labs Labs: 03/23/17 05:20 03/23/17 05:20 PT 11.9 Seconds (9.9-11.8) H 03/22/17 05:30 INR 1.10 (0.93-1.08) H 03/22/17 05:30 APTT 24.9 Seconds (23.7-30.8) 03/22/17 05:30 - Head Exam Head Exam: ATRAUMATIC, NORMAL INSPECTION, NORMOCEPHALIC - Eye Exam Eye Exam: EOMI, Normal appearance, PERRL. absent: Periorbital tenderness Pupil Exam: NORMAL ACCOMODATION, PERRL. absent: Irregular, Unequal - ENT Exam ENT Exam: Mucous Membranes Moist, Normal Exam. absent: Normal Oropharynx, TM's Normal Bilaterally Additional comments: Intubated. - Neck Exam Neck Exam: Normal Inspection. absent: Lymphadenopathy, Meningismus, Thyromegaly - Respiratory Exam Respiratory Exam: Clear to Ausculation Bilateral, NORMAL BREATHING PATTERN. absent: Chest Wall Tenderness, Prolonged Expiratory Phase, Respiratory Distress - Cardiovascular Exam Cardiovascular Exam: REGULAR RHYTHM, RRR, +S1, +S2. absent: Gallop, Rubs - GI/Abdominal Exam GI & Abdominal Exam: Soft, Normal Bowel Sounds. absent: Tenderness, Hyperactive Bowel Sounds - Extremities Exam Extremities Exam: Full ROM, Normal Capillary Refill. absent: Joint Swelling, Pedal Edema, Tenderness - Back Exam Back Exam: NORMAL INSPECTION. absent: CVA tenderness (L), CVA tenderness (R), paraspinal tenderness - Neurological Exam Neurological Exam: Altered. absent: Alert, Awake, CN II-XII Intact, Normal Gait , Oriented x3 - Psychiatric Exam Psychiatric exam: absent: Depressed, Flat Affect, Normal Affect, Normal Mood, Suicidal Ideation - Skin Skin Exam: Dry, Intact, Normal Color. absent: Diaphoretic, Erythema, Petechiae , Rash Assessment and Plan - Assessment and Plan (Free Text) Assessment: 36 y/o male with PMH of substance abuse presents with drug overdose, with multiple substances (+BZDs, barbiturate, Opiates), s/p ROSC after cardiac arrest x 3, unknown initial downtime at home. Tracheostomy and G-tube placement not placed Wednesday by surgery due to hypernatremia. Pt will be rescheduled for Wednesday. Pt also started on d5W and free water via the NGT. Antibiotics will also be stopped at tihs time. Prognosis discussed with family, who are still hopeful patient will have a meaningful recovery. Plan: Neuro: -Patient intubated and unresponsive on sedative medication -Continue to Maintain temp ~92-94F -Neurochecks q2h -Urine toxicology positive for opiates, barbiturates and benzos -CT Head (-). Seen by Neurology. -Repeat EEG demonstrates anoxic brain injury and poor prognosis. -Brain MRI showed anoxic injury in thalamic region bilaterally. -Will continue to attempt weaning trials -Continue Seizure precautions -Neuro status hard to determine due to sedation. Will reassess once sedation is weaned off. -Overnight patient had two seizures again. Continue Fentanyl 200mcg/hr. Will continue to monitor. -Patient scheduled tracheostomy and gastrostomy procedures put on hold due to overnight seizures. Patient will be stabilized prior to going to [facility].R. -Family awaiting approval at a hospital for continuous eeg monitoring. Cardio: -Continue propofol and Midozalam with goal MAP > 70 -EKG reviewed; atrial fibrillation with slow ventricular response (51bpm), nonspecific intraventricular block -F/U with Cardiology recs. Pulm: -Failed CPAP trial, will remain on full ventilatory support. Patient Tracheostomy put on hold until clinical condition improves. -ABG and CXR reviewed -patient pO2 stable. Patient's FiO2 remains at 40%. Will monitor closely. -Continue serial CXR and ABG. GI: -NPO -NGT -Protonix Renal: -Hypernatremic resolved. Will continue to monitor closely. -Hypokalemia (3.7 today) Resolved. Will replete as needed. -Magnesium 1.3. Patient getting repleted now. -Will continue to monitor and treat electrolyte abnormalities as indicated -Monitor I's and O's Endo: -Fingersticks q2h -Maintain euglycemia between 140-180's -Stress dose steroids, tapering ID: -Patient had a fever overnight of 101.4. Cooling blanket applied. -Current temperature 101.6 Continue Tylenol as needed.Continue Metronidazole, Zosyn and Vancomycin. -Sputum culture grew Yeast species. Remaining Cultures negative at this time -Full course of abx given, will D/C at this time GI/DVT Prophylaxis -Protonix/SCD's <Miguel Carlos - Last Filed: 03/24/17 14:22> Objective - Vital Signs/Intake and Output Vital Signs (last 24 hours): Temp Pulse Resp BP Pulse Ox 102.3 F H 130 H 18 127/77 66 L 03/24/17 04:00 03/24/17 13:51 03/24/17 07:36 03/24/17 13:51 03/24/17 07:36 Intake and Output: 03/24/17 03/24/17 06:59 18:59 Intake Total 3907 100 Output Total 1450 Balance 2457 100 - Medications Medications: Current Medications Acetaminophen (Tylenol 325 Mg Supp) 325 mg RC Q4H PRN PRN Reason: Fever >100.4 F Last Admin: 03/22/17 21:00 Dose: 325 mg Albuterol/Ipratropium (Duoneb 3 Mg/0.5 Mg (3 Ml) Ud) 3 ml IH Q2H PRN PRN Reason: Shortness of Breath Last Admin: 03/13/17 15:45 Dose: 3 ml Albuterol/Ipratropium (Duoneb 3 Mg/0.5 Mg (3 Ml) Ud) 3 ml IH [id number] [facility] Last Admin: 03/24/17 13:25 Dose: 3 ml Chlorhexidine Gluconate (Peridex) 15 ml PO BID [facility] Last Admin: 03/24/17 10:47 Dose: 15 ml Propofol (Diprivan) 1,000 mg in 100 mls @ 3.674 mls/hr IV .Q24H PRN; Protocol; 5 MCG/KG/MIN PRN Reason: TITRATE PER MD ORDER Last Admin: 03/24/17 02:27 Dose: 50 mcg/kg/min, 36.741 mls/hr Levetiracetam 1,000 mg/ Sodium (Chloride) 110 mls @ 460 mls/hr IV Q12 [facility] Last Admin: 03/24/17 10:46 Dose: 460 mls/hr Potassium Chloride 40 meq/ (Sodium Chloride) 1,020 mls @ 100 mls/hr IV .[id number] [facility] Last Admin: 03/24/17 01:57 Dose: 100 mls/hr Phenytoin 100 mg/ Sodium (Chloride) 52 mls @ 104 mls/hr IVPB TID [facility] Last Admin: 03/24/17 13:48 Dose: 104 mls/hr Metronidazole (Flagyl) 500 mg in 100 mls @ 100 mls/hr IVPB Q8 [facility] PRN Reason: Protocol Stop: 03/28/17 14:01 Last Admin: 03/24/17 13:49 Dose: 100 mls/hr Valproate Sodium 500 mg/ (Sodium Chloride) 105 mls @ 100 mls/hr IVPB Q8 [facility] Last Admin: 03/24/17 13:48 Dose: 100 mls/hr Fentanyl Citrate (Fentanyl Citrate/Sodium Chloride 1 Mg/100 Ml) 1,000 mcg in 100 mls @ 2 mls/hr IV .Q24H PRN; Protocol; 20 MCG/HR PRN Reason: TITRATE PER MD ORDER Last Admin: 03/24/17 09:21 Dose: 200 mcg/hr, 20 mls/hr Midazolam 100 mg/100ml in NS (Midazolam 100 Mg/100ml In Ns) 100 mg in 100 mls @ 20 mls/hr IV .Q5H PRN; Protocol; 20 MG/HR PRN Reason: Sedation Last Admin: 03/24/17 14:07 Dose: 30 mg/hr, 30 mls/hr Acetaminophen (Ofirmev) 1,000 mg in 100 mls @ 400 mls/hr IVPB Q6H PRN PRN Reason: Temperature > 100.4F Stop: 03/25/17 08:33 Last Admin: 03/24/17 04:37 Dose: 400 mls/hr Vancomycin HCl (Vancomycin 1gm) 1 gm in 250 mls @ 167 mls/hr IVPB Q12H [facility] PRN Reason: Protocol Last Admin: 03/24/17 08:47 Dose: 167 mls/hr Metoprolol Tartrate (Lopressor) 5 mg IVP Q4 PRN PRN Reason: sbp>160 or HR > 130 BPM Last Admin: 03/24/17 03:52 Dose: 5 mg Metoprolol Tartrate (Lopressor) 12.5 mg PO BID [facility] Last Admin: 03/24/17 13:51 Dose: 12.5 mg Pantoprazole Sodium (Protonix Inj) 40 mg IVP Q12 [facility] Last Admin: 03/24/17 10:48 Dose: 40 mg - Labs Labs: 03/24/17 05:20 03/24/17 05:20 PT 11.9 Seconds (9.9-11.8) H 03/22/17 05:30 INR 1.10 (0.93-1.08) H 03/22/17 05:30 APTT 24.9 Seconds (23.7-30.8) 03/22/17 05:30 Attending/Attestation - Attestation I have personally seen and examined this patient.: Yes I have fully participated in the care of the patient.: Yes I have reviewed all pertinent clinical information, including history, physical exam and plan: Yes Notes (Text): 03/24/17 14:17 Patient was seen and examined with medical unit secretary.Family is at bed side. 36 y/o M w/ prolonged intubation following cardiac arrest x 2, ARDS and septic shock. Patient is having multiple seizure Status epilepticus ?sedated on Propofol, Fentanyl and Versed. Keppra ,He is also on Dilantin and Valproic acid Patient family is agrreable for PEG tube placement now, Awaiting a tertiary care center to possibly accept the patient for cont EEg monitoring in the setting of needing Pentobar Coma. Patient LFT are stable, Acute renal failure has improved, making lot of urine, could have underlying DI Prognosis is guarded. Management plan was discussed in detail with patient Education was provided.
[2017-03-23] MEDS: Vancomycin 1gm in NS 250ml 1 GM/250 ML BAG IVPB SCH ×2 (11:32→22:01)
[2017-03-23] MEDS: Piperacill/Tazo 4.5gm in NS 4.5 GM/100 ML BAG IVPB SCH ×2 (13:25→18:34)
--- NOTE | 2017-03-23 13:52 | CP.CCUPN ---
<Jerman Kilgore - Last Filed: 03/23/17 13:37> CCU Subjective - Physician Review Subjective (Free Text): 03/22/17 11:50 Patient seen and examined at bedside in the ICU. Due to persistent seizure episodes despite sedation and seizure ppx, the patient is now on Propofol/Versed /Fentanyl for sedation, and Keppra/Phenytoin/Valproic Acid for seizure ppx. No further coffee-ground emesis episodes reported; more seizures reported overnight. NGT no longer on suction. Remains intubated, sedated. Attempting to arrange transfer to center for 24-hour EEG monitoring and possible barbiturate coma; so far refused at [facility] and [facility], attempting to reach out to [facility]. CCU Objective - Vital Signs / Intake & Output Vital Signs (Last 4 hours): Vital Signs Temp Pulse Resp BP Pulse Ox 03/23/17 11:37 100.2 F H 121 H 19 116/77 96 Intake and Output (Last 8hrs): Intake & Output 03/22/17 03/23/17 03/23/17 22:59 06:59 14:59 Intake Total 600 3800 200 Output Total 2500 3150 Balance -1900 650 200 Weight 103.555 kg Intake: IV 600 3800 200 Left Antecubital 2900 Left Hand 600 Output: Gastric Amount 250 Nares 250 Urine 2500 2900 Urethral (Armenta) 2500 2900 Other: # Bowel Movements 2 - Physical Exam Head: Positive for: Atraumatic, Normocephalic. Negative for: Ecchymosis, Abrasion, Laceration Pupils: Positive for: Non-Reactive, Pinpoint Extroacular Muscles: Positive for: Other (unable to assess due to not following commands, not moving eyes spontaneously, no avoidance of direct light challenge for PERRL assessment; decreased intermittent fluttering of eyelids, eyes remain gazing downward, No doll eyes) Conjunctiva: Negative for: Injected, Icteric Mouth: Positive for: Moist Mucous Membranes, Other (ETT in place with bite guard ). Negative for: Drooling Nose (External): Positive for: Atraumatic, Other (NGT in place set to suction, no more coffee-ground colored drainage noted). Negative for: Abrasion, Contusion, Laceration Neck: Positive for: Trachea Midline. Negative for: JVD, Lymphadenopathy Respiratory/Chest: Positive for: Clear to Auscultation, Good Air Exchange, Rales (mild-moderate rales in all breath seg[place], unchanged). Negative for: Accessory Muscle Use, Wheezes, Tachypneic Cardiovascular: Positive for: Normal S1, S2, Tachycardic. Negative for: Murmurs , Irregular Rhythm Abdomen: Negative for: Distention (obese but not distended, soft on palpation, no palpable masses or pulsatile masses), Normal Bowel Sounds (diminished but present bowel sounds, unchanged from multiple prior exams), Mass/Organomegaly Upper Extremity: Positive for: Normal Inspection. Negative for: Cyanosis, Edema , Normal ROM, NORMAL PULSES (faintly palpable radials +1), Swelling, Erythema, Deformity Lower Extremity: Positive for: Normal Inspection. Negative for: Edema, NORMAL PULSES (unable to palpate bilateral dorsalis pedis or posterior tibials), Cyanosis, Swelling, Erythema, Deformity Neurological: Positive for: Other (intubated and sedated, now off paralytics for ~12 hrs). Negative for: GCS=15 (GCS 3 (E1 V1t M1)), CN II-XII Intact, Speech Normal, Motor Func Grossly Intact Skin: Positive for: Warm, Dry, Normal Color. Negative for: Rashes Psychiatric: Positive for: Other (sedated and intubated, unable to assess). Negative for: Alert, Oriented x 3, Normal Insight, Normal Concentration, Normal Affect, Normal Mood - Medications Active Medications: Active Medications Generic Name Dose Route Start Last Admin Trade Name Freq PRN Reason Stop Dose Admin Acetaminophen 325 mg 03/22/17 20:47 03/22/17 21:00 Tylenol 325 Mg Supp RC 325 mg Q4H PRN Administration Fever >100.4 F Albuterol/Ipratropium 3 ml 03/13/17 15:07 03/13/17 15:45 Duoneb 3 Mg/0.5 Mg (3 Ml) Ud IH 3 ml Q2H PRN Administration Shortness of Breath Albuterol/Ipratropium 3 ml 03/13/17 20:00 03/23/17 07:55 Duoneb 3 Mg/0.5 Mg (3 Ml) Ud IH 3 ml [id number] MARICHUY Administration Chlorhexidine Gluconate 15 ml 03/13/17 10:00 03/23/17 11:00 Peridex PO 15 ml BID MARIHCUY Administration Propofol 1,000 mg in 100 mls @ 3.674 mls/hr 03/12/17 07:41 03/23/17 06:15 Diprivan IV 50 mcg/kg/min .Q24H PRN 36.741 mls/hr TITRATE PER MD ORDER Administration Protocol 5 MCG/KG/MIN Levetiracetam 1,000 mg/ Sodium 110 mls @ 460 mls/hr 03/12/17 22:00 03/23/17 09:31 Chloride IV 460 mls/hr Q12 MARICHUY Administration Potassium Chloride 40 meq/ 1,020 mls @ 100 mls/hr 03/17/17 21:40 03/22/17 09: 39 Sodium Chloride IV 100 mls/hr .[id number] MARICHUY Administration Phenytoin 100 mg/ Sodium 52 mls @ 104 mls/hr 03/18/17 10:00 03/23/17 09:31 Chloride IVPB 104 mls/hr TID MARICHUY Administration Metronidazole 500 mg in 100 mls @ 100 mls/hr 03/20/17 14:00 03/23/17 13:31 Flagyl IVPB 03/28/17 14:01 100 mls/hr Q8 MARICHUY Administration Protocol Valproate Sodium 500 mg/ 105 mls @ 100 mls/hr 03/21/17 14:00 03/23/17 13:25 Sodium Chloride IVPB 100 mls/hr Q8 MARICHUY Administration Fentanyl Citrate 1,000 mcg in 100 mls @ 2 mls/hr 03/21/17 15:18 03/23/17 13: 25 Fentanyl Citrate/Sodium Chloride 1 Mg/100 Ml IV 200 mcg/hr .Q24H PRN 20 mls/hr TITRATE PER MD ORDER Administration Protocol 20 MCG/HR Midazolam 100 mg/100ml in NS 100 mg in 100 mls @ 20 mls/hr 03/21/17 17:30 06:18 Midazolam 100 Mg/100ml In Ns IV 30 mg/hr .Q5H PRN 30 mls/hr Sedation Administration Protocol 20 MG/HR Magnesium Sulfate 2 gm/ Sodium 104 mls @ 102 mls/hr 03/23/17 09:00 03/23/17 11:29 Chloride IVPB 03/23/17 16:02 102 mls/hr Q3 MARICHUY Administration Acetaminophen 1,000 mg in 100 mls @ 400 mls/hr 03/23/17 08:32 03/23/17 09:15 Ofirmev IVPB 03/25/17 08:33 400 mls/hr Q6H PRN Administration Temperature > 100.4F Vancomycin HCl 1 gm in 250 mls @ 167 mls/hr 03/23/17 09:45 03/23/17 11:32 Vancomycin 1gm IVPB 167 mls/hr Q12H MARICHUY Administration Protocol Piperacillin Sod/Tazobactam Sod 4.5 gm in 100 mls @ 200 mls/hr 03/23/17 12:00 03/23/17 13:25 Zosyn 4.5 Gm In Ns 100ml IVPB 03/23/17 18:29 200 mls/hr Q6 MARICHUY Administration Protocol Metoprolol Tartrate 5 mg 03/21/17 16:38 Lopressor IVP Q4 PRN sbp>160 or HR > 130 BPM Pantoprazole Sodium 40 mg 03/20/17 22:00 03/23/17 09:33 Protonix Inj IVP 40 mg Q12 MARICHUY Administration - Patient Studies Lab Studies: Microbiology Studies 03/20/17 13:30 Blood Culture - Preliminary Blood NO GROWTH AFTER 48 HOURS 03/20/17 13:30 Blood Culture - Preliminary Blood NO GROWTH AFTER 48 HOURS 03/20/17 14:00 Urine Culture - Final Urine,Catheterized No Growth (<1,000 CFU/ML) Lab Studies 03/23/17 03/23/17 03/23/17 Range/Units 06:39 06:03 05:20 WBC (4.5-11.0) 10^3/ul RBC (3.5-6.1) 10^6/uL Hgb (14.0-18.0) g/dL Hct (42.0-52.0) % MCV (80.0-105.0) fl MCH (25.0-35.0) pg MCHC (31.0-37.0) g/dl RDW (11.5-14.5) % Plt Count (120.0-450.0) 10^3/uL MPV (7.0-11.0) fl pCO2 37 (35-45) mm/Hg pO2 71.0 L (80-100) mm/Hg HCO3 24.0 (21-28) mmol/L ABG pH 7.42 (7.35-7.45) ABG Total CO2 25.1 (22-28) mmol.L ABG O2 Saturation 97.8 (95-98) % ABG Base Excess -0.2 (-2.0-3.0) mmol/L ABG Potassium 3.4 L (3.6-5.2) mmol/L Glucose 88 (75-110) mg/dl Lactate 0.5 L (0.7-2.1) mmol/L FiO2 40.0 % Sodium 139.0 (132-148) mmol/L Potassium (3.6-5.0) mmol/L Chloride 113.0 H (98-107) mmol/L Carbon Dioxide (21-33) mmol/L Anion Gap (10-20) BUN (7-21) mg/dL Creatinine (0.8-1.5) mg/dL Est GFR ( Amer) Est GFR (Non-Af Amer) POC Glucose (mg/dL) 90 (65-110) mg/dL Random Glucose (70-110) mg/dL Calcium (8.4-10.5) mg/dL Phosphorus 3.5 (2.5-4.5) mg/dL Magnesium 1.3 L (1.7-2.2) mg/dL Total Bilirubin (0.2-1.3) mg/dL AST (17-59) U/L ALT (7-56) U/L Alkaline Phosphatase (38-126) U/L Total Protein (5.8-8.3) g/dL Albumin (3.0-4.8) g/dL Globulin gm/dL Albumin/Globulin Ratio (1.1-1.8) Arterial Blood Potassium 3.4 L (3.6-5.2) mmol/L 03/23/17 03/23/17 03/23/17 Range/Units 05:20 05:20 00:06 WBC 12.8 H (4.5-11.0) 10^3/ul RBC 3.25 L (3.5-6.1) 10^6/uL Hgb 9.4 L (14.0-18.0) g/dL Hct 28.5 L (42.0-52.0) % MCV 87.7 (80.0-105.0) fl MCH 28.9 (25.0-35.0) pg MCHC 33.0 (31.0-37.0) g/dl RDW 13.8 (11.5-14.5) % Plt Count 259 (120.0-450.0) 10^3/uL MPV 10.1 (7.0-11.0) fl pCO2 (35-45) mm/Hg pO2 (80-100) mm/Hg HCO3 (21-28) mmol/L ABG pH (7.35-7.45) ABG Total CO2 (22-28) mmol.L ABG O2 Saturation (95-98) % ABG Base Excess (-2.0-3.0) mmol/L ABG Potassium (3.6-5.2) mmol/L Glucose (75-110) mg/dl Lactate (0.7-2.1) mmol/L FiO2 % Sodium 139 (132-148) mmol/L Potassium 3.7 (3.6-5.0) mmol/L Chloride 107 (98-107) mmol/L Carbon Dioxide 26 (21-33) mmol/L Anion Gap 10 (10-20) BUN 8 (7-21) mg/dL Creatinine 0.6 L (0.8-1.5) mg/dL Est GFR ( Amer) > 60 Est GFR (Non-Af Amer) > 60 POC Glucose (mg/dL) 94 (65-110) mg/dL Random Glucose 93 (70-110) mg/dL Calcium 8.7 (8.4-10.5) mg/dL Phosphorus (2.5-4.5) mg/dL Magnesium (1.7-2.2) mg/dL Total Bilirubin 1.2 (0.2-1.3) mg/dL AST 97 H (17-59) U/L ALT 97 H (7-56) U/L Alkaline Phosphatase 106 (38-126) U/L Total Protein 7.1 (5.8-8.3) g/dL Albumin 3.3 (3.0-4.8) g/dL Globulin 3.8 gm/dL Albumin/Globulin Ratio 0.9 L (1.1-1.8) Arterial Blood Potassium (3.6-5.2) mmol/L 10/16/17 10/16/17 10/16/17 Range/Units 18:13 11:30 06:10 WBC (4.5-11.0) 10^3/ul RBC (3.5-6.1) 10^6/uL Hgb (14.0-18.0) g/dL Hct (42.0-52.0) % MCV (80.0-105.0) fl MCH (25.0-35.0) pg MCHC (31.0-37.0) g/dl RDW (11.5-14.5) % Plt Count (120.0-450.0) 10^3/uL MPV (7.0-11.0) fl pCO2 (35-45) mm/Hg pO2 (80-100) mm/Hg HCO3 (21-28) mmol/L ABG pH (7.35-7.45) ABG Total CO2 (22-28) mmol.L ABG O2 Saturation (95-98) % ABG Base Excess (-2.0-3.0) mmol/L ABG Potassium (3.6-5.2) mmol/L Glucose (75-110) mg/dl Lactate (0.7-2.1) mmol/L FiO2 % Sodium (132-148) mmol/L Potassium (3.6-5.0) mmol/L Chloride (98-107) mmol/L Carbon Dioxide (21-33) mmol/L Anion Gap (10-20) BUN (7-21) mg/dL Creatinine (0.8-1.5) mg/dL Est GFR ( Amer) Est GFR (Non-Af Amer) POC Glucose (mg/dL) 81 76 73 (65-110) mg/dL Random Glucose (70-110) mg/dL Calcium (8.4-10.5) mg/dL Phosphorus (2.5-4.5) mg/dL Magnesium (1.7-2.2) mg/dL Total Bilirubin (0.2-1.3) mg/dL AST (17-59) U/L ALT (7-56) U/L Alkaline Phosphatase (38-126) U/L Total Protein (5.8-8.3) g/dL Albumin (3.0-4.8) g/dL Globulin gm/dL Albumin/Globulin Ratio (1.1-1.8) Arterial Blood Potassium (3.6-5.2) mmol/L 03/22/17 Range/Units 00:47 WBC (4.5-11.0) 10^3/ul RBC (3.5-6.1) 10^6/uL Hgb (14.0-18.0) g/dL Hct (42.0-52.0) % MCV (80.0-105.0) fl MCH (25.0-35.0) pg MCHC (31.0-37.0) g/dl RDW (11.5-14.5) % Plt Count (120.0-450.0) 10^3/uL MPV (7.0-11.0) fl pCO2 (35-45) mm/Hg pO2 (80-100) mm/Hg HCO3 (21-28) mmol/L ABG pH (7.35-7.45) ABG Total CO2 (22-28) mmol.L ABG O2 Saturation (95-98) % ABG Base Excess (-2.0-3.0) mmol/L ABG Potassium (3.6-5.2) mmol/L Glucose (75-110) mg/dl Lactate (0.7-2.1) mmol/L FiO2 % Sodium (132-148) mmol/L Potassium (3.6-5.0) mmol/L Chloride (98-107) mmol/L Carbon Dioxide (21-33) mmol/L Anion Gap (10-20) BUN (7-21) mg/dL Creatinine (0.8-1.5) mg/dL Est GFR ( Amer) Est GFR (Non-Af Amer) POC Glucose (mg/dL) 99 (65-110) mg/dL Random Glucose (70-110) mg/dL Calcium (8.4-10.5) mg/dL Phosphorus (2.5-4.5) mg/dL Magnesium (1.7-2.2) mg/dL Total Bilirubin (0.2-1.3) mg/dL AST (17-59) U/L ALT (7-56) U/L Alkaline Phosphatase (38-126) U/L Total Protein (5.8-8.3) g/dL Albumin (3.0-4.8) g/dL Globulin gm/dL Albumin/Globulin Ratio (1.1-1.8) Arterial Blood Potassium (3.6-5.2) mmol/L Laboratory Results - last 24 hr 03/22/17 03/22/17 03/22/17 00:47 06:10 11:30 WBC RBC Hgb Hct MCV MCH MCHC RDW Plt Count MPV pCO2 pO2 HCO3 ABG pH ABG Total CO2 ABG O2 Saturation ABG Base Excess ABG Potassium Glucose Lactate FiO2 Sodium Potassium Chloride Carbon Dioxide Anion Gap BUN Creatinine Est GFR ( Amer) Est GFR (Non-Af Amer) POC Glucose (mg/dL) 99 73 76 Random Glucose Calcium Phosphorus Magnesium Total Bilirubin AST ALT Alkaline Phosphatase Total Protein Albumin Globulin Albumin/Globulin Ratio Arterial Blood Potassium 03/22/17 03/23/17 03/23/17 18:13 00:06 05:20 WBC 12.8 H RBC 3.25 L Hgb 9.4 L Hct 28.5 L MCV 87.7 MCH 28.9 MCHC 33.0 RDW 13.8 Plt Count 259 MPV 10.1 pCO2 pO2 HCO3 ABG pH ABG Total CO2 ABG O2 Saturation ABG Base Excess ABG Potassium Glucose Lactate FiO2 Sodium Potassium Chloride Carbon Dioxide Anion Gap BUN Creatinine Est GFR ( Amer) Est GFR (Non-Af Amer) POC Glucose (mg/dL) 81 94 Random Glucose Calcium Phosphorus Magnesium Total Bilirubin AST ALT Alkaline Phosphatase Total Protein Albumin Globulin Albumin/Globulin Ratio Arterial Blood Potassium 03/23/17 03/23/17 03/23/17 05:20 05:20 06:03 WBC RBC Hgb Hct MCV MCH MCHC RDW Plt Count MPV pCO2 pO2 HCO3 ABG pH ABG Total CO2 ABG O2 Saturation ABG Base Excess ABG Potassium Glucose Lactate FiO2 Sodium 139 Potassium 3.7 Chloride 107 Carbon Dioxide 26 Anion Gap 10 BUN 8 Creatinine 0.6 L Est GFR ( Amer) > 60 Est GFR (Non-Af Amer) > 60 POC Glucose (mg/dL) 90 Random Glucose 93 Calcium 8.7 Phosphorus 3.5 Magnesium 1.3 L Total Bilirubin 1.2 AST 97 H ALT 97 H Alkaline Phosphatase 106 Total Protein 7.1 Albumin 3.3 Globulin 3.8 Albumin/Globulin Ratio 0.9 L Arterial Blood Potassium 03/23/17 06:39 WBC RBC Hgb Hct MCV MCH MCHC RDW Plt Count MPV pCO2 37 pO2 71.0 L HCO3 24.0 ABG pH 7.42 ABG Total CO2 25.1 ABG O2 Saturation 97.8 ABG Base Excess -0.2 ABG Potassium 3.4 L Glucose 88 Lactate 0.5 L FiO2 40.0 Sodium 139.0 Potassium Chloride 113.0 H Carbon Dioxide Anion Gap BUN Creatinine Est GFR ( Amer) Est GFR (Non-Af Amer) POC Glucose (mg/dL) Random Glucose Calcium Phosphorus Magnesium Total Bilirubin AST ALT Alkaline Phosphatase Total Protein Albumin Globulin Albumin/Globulin Ratio Arterial Blood Potassium 3.4 L Fingerstick Blood Sugar Results: 90 Review of Systems - Review of Systems Systems not reviewed;Unavailable: Intubated Critical Care Progress Note - Nutrition Nutrition: Nutrition Category Date Time Status NPO Diet [DIET] Diets 03/14/17 Breakfast Ordered Assessment/Plan - Assessment and Plan (Free Text) Assessment: This is a 36 yo M with past medical history of substance abuse, depression, bipolar disorder, hypertension, anxiety disorder that presented with cardiac arrest in the field (downtime unknown) due to multi-drug overdose, with two further episodes of cardiac arrest on arrival, and witnessed seizure prior to initiation of increased sedation and paralytics. Remains off paralytics, but remains on high doses of sedatives due to multiple witnessed seizures, concerning for likely Status Epilepticus. Will require transfer to center with 24-hour continuous EEG monitoring, so far denied at [facility] and [facility]. Was pending Trach/G-tube placement today, but now refusing due to his condition. Prognosis is poor. Plan: Neuro: -continuing to seize despite sedation with Propofol/Versed/Fentanyl and seizure ppx with Dilantin/Keppra/Valproic Acid, likely status epilepticus -At this point, next intervention would be barbiturate coma, which requires 24- hour continuous EEG monitoring; [facility] and [facility] have denied for transfer, attempting to reach out to [facility] -MRI brain notable for likely anoxic injury in thalamix area bilaterally -Repeat EEG ordered today, pending read -No longer actively cooling, maintain normothermia -Urine toxicology on admission positive for opiates, barbiturates and benzos -Neurology consulted - Dr. Rene, appreciate all recs; poor prognosis given burst suppression pattern on EEG with seizure when weaned from sedation, likely status epilepticus given persisting seizures, needs 24-hour EEG monitoring for Status, which will require a transfer -Poison control following Pulm: -Satting 95-100%, ABG this AM reviewed, decreased pO2 but otherwise stable, continue to monitor -CXR this AM reviewed, unchanged as compared to yesterday -Currently on PRVC, tolerating pressure support, continue to monitor Cardio: -Off all pressor support >7 days, maintaining MAP > 65 consistently -Tachycardic 100's since x3 days, possibly rebound from precedex d/c vs 2/2 status epilepticus -Troponins increased from <0.01 to 0.13 on admission -most recent EKG 03/13, notable for sinus halina to 48 and prolonged QTc at 537 ( unsurprising in setting of multi-drug abuse) -Cardiology consulted - Dr. Anderson -Echo notable for EF 54%, normal size/wall thickness LV, flattened septum, mild Pulm HTN/TR, mild RV dilation GI: -NPO -NGT placed -GI prophylaxis with protonix -LFTs improving -s/p x3 dosing of Acetadote as per Poison Control, no additional doses ordered -coffee-ground emesis on 03/20, 600cc drainage after NGT set to suction; no free air under the diaphragm or obstruction on Abd CXR; H Pylori antigen test ordered, empiric coverage with Flagyl (day 4, set for 8 day course), Protonix BID Renal: -Cr stable at 0.6, OTONIEL resolved -Hypernatremia resolved, Na today 139; free water flushes stopped due to GI bleed, D5W stopped as per Nephro -Will continue to monitor and treat electrolyte abnormalities as indicated; persistently low K requiring chronic repletion -Monitor I's and O's -Nephro following, appreciate all recs Endo: -Fingersticks q4h -Maintain euglycemia between 140-180's ID: -multiple Blood and urine cultures drawn, remain negative -Most recent sputum (03/16) positive for light growth yeast, all other sputum cultures negative -Patient was empirically covered with Cefepime, Levofloxacin, and Vanco; all now d/c; currently on Flagyl (day 4 of 8) for empiric H Pylori coverage -Febrile overnight, Tmax 101.4F -Ofirmev for fevers, new blood/urine/sputum cx ordered Heme: -Hgb 9.4, stool occult pending, iron panel wnl -SCDs for DVT ppx -Coags stable, last INR 1.10 Dispo: ICU, intubated/sedated, s/p EEG with burst-suppression pattern, s/p GI bleed suspected 2/2 ulceration from NGT; likely Status Epilepticus, requires 24- hour EEG monitoring and likely Barbiturate coma, denied transfer to [facility] and [facility], attempting to contact [facility]; prognosis is very poor FEN: NPO, NS with KCl 40mEq at 100cc/hr Access: Peripheral IVs Consults: Neuro, Cardio, Nephro, Poison Control, Surgery Ppx: Protonix covers for GI, SCDs for DVT Patient seen, examined, and reviewed with attending, Dr. Bush <Rachelle JONES,Formerly [facility], 1928–1983 H - Last Filed: 03/23/17 15:48> CCU Objective - Vital Signs / Intake & Output Vital Signs (Last 4 hours): Vital Signs Pulse Resp BP Pulse Ox 03/23/17 14:50 125 H 92 L 03/23/17 14:40 123 H 91 L 03/23/17 14:30 123 H 92 L 03/23/17 14:20 127 H 90 L 03/23/17 14:10 125 H 93 L 03/23/17 14:00 127 H 138/70 97 03/23/17 13:50 114 H 98 03/23/17 13:40 116 H 96 03/23/17 13:30 116 H 95 03/23/17 13:20 115 H 19 96 03/23/17 13:10 114 H 97 03/23/17 13:00 117 H 131/72 97 03/23/17 12:50 115 H 97 03/23/17 12:40 118 H 96 03/23/17 12:30 117 H 95 03/23/17 12:20 117 H 96 03/23/17 12:10 118 H 97 03/23/17 12:00 121 H 121/73 95 03/23/17 11:50 122 H 95 Intake and Output (Last 8hrs): Intake & Output 03/23/17 03/23/17 03/23/17 06:59 14:59 22:59 Intake Total 3800 200 Output Total 3150 Balance 650 200 Weight 228 lb 4.8 oz Intake: IV 3800 200 Left Antecubital 2900 Left Hand 600 Output: Gastric Amount 250 Nares 250 Urine 2900 Urethral (Armenta) 2900 Other: # Bowel Movements 2 - Medications Active Medications: Active Medications Generic Name Dose Route Start Last Admin Trade Name Freq PRN Reason Stop Dose Admin Acetaminophen 325 mg 03/22/17 20:47 03/22/17 21:00 Tylenol 325 Mg Supp RC 325 mg Q4H PRN Administration Fever >100.4 F Albuterol/Ipratropium 3 ml 03/13/17 15:07 03/13/17 15:45 Duoneb 3 Mg/0.5 Mg (3 Ml) Ud IH 3 ml Q2H PRN Administration Shortness of Breath Albuterol/Ipratropium 3 ml 03/13/17 20:00 03/23/17 13:39 Duoneb 3 Mg/0.5 Mg (3 Ml) Ud IH 3 ml [id number] MARICHUY Administration Chlorhexidine Gluconate 15 ml 03/13/17 10:00 03/23/17 11:00 Peridex PO 15 ml BID MARICHUY Administration Propofol 1,000 mg in 100 mls @ 3.674 mls/hr 03/12/17 07:41 03/23/17 06:15 Diprivan IV 50 mcg/kg/min .Q24H PRN 36.741 mls/hr TITRATE PER MD ORDER Administration Protocol 5 MCG/KG/MIN Levetiracetam 1,000 mg/ Sodium 110 mls @ 460 mls/hr 03/12/17 22:00 03/23/17 09:31 Chloride IV 460 mls/hr Q12 MARICHUY Administration Potassium Chloride 40 meq/ 1,020 mls @ 100 mls/hr 03/17/17 21:40 03/23/17 14: 27 Sodium Chloride IV 100 mls/hr .[id number] MARICHUY Administration Phenytoin 100 mg/ Sodium 52 mls @ 104 mls/hr 03/18/17 10:00 03/23/17 14:26 Chloride IVPB 104 mls/hr TID MARICHUY Administration Metronidazole 500 mg in 100 mls @ 100 mls/hr 03/20/17 14:00 03/23/17 13:31 Flagyl IVPB 03/28/17 14:01 100 mls/hr Q8 MARICHUY Administration Protocol Valproate Sodium 500 mg/ 105 mls @ 100 mls/hr 03/21/17 14:00 03/23/17 13:25 Sodium Chloride IVPB 100 mls/hr Q8 MARICHUY Administration Fentanyl Citrate 1,000 mcg in 100 mls @ 2 mls/hr 03/21/17 15:18 03/23/17 13: 25 Fentanyl Citrate/Sodium Chloride 1 Mg/100 Ml IV 200 mcg/hr .Q24H PRN 20 mls/hr TITRATE PER MD ORDER Administration Protocol 20 MCG/HR Midazolam 100 mg/100ml in NS 100 mg in 100 mls @ 20 mls/hr 03/21/17 17:30 06:18 Midazolam 100 Mg/100ml In Ns IV 30 mg/hr .Q5H PRN 30 mls/hr Sedation Administration Protocol 20 MG/HR Magnesium Sulfate 2 gm/ Sodium 104 mls @ 102 mls/hr 03/23/17 09:00 03/23/17 11:29 Chloride IVPB 03/23/17 16:02 102 mls/hr Q3 MARICHUY Administration Acetaminophen 1,000 mg in 100 mls @ 400 mls/hr 03/23/17 08:32 03/23/17 09:15 Ofirmev IVPB 03/25/17 08:33 400 mls/hr Q6H PRN Administration Temperature > 100.4F Vancomycin HCl 1 gm in 250 mls @ 167 mls/hr 03/23/17 09:45 03/23/17 11:32 Vancomycin 1gm IVPB 167 mls/hr Q12H MARICHUY Administration Protocol Piperacillin Sod/Tazobactam Sod 4.5 gm in 100 mls @ 200 mls/hr 03/23/17 12:00 03/23/17 13:25 Zosyn 4.5 Gm In Ns 100ml IVPB 03/23/17 18:29 200 mls/hr Q6 MARICHUY Administration Protocol Metoprolol Tartrate 5 mg 03/21/17 16:38 Lopressor IVP Q4 PRN sbp>160 or HR > 130 BPM Pantoprazole Sodium 40 mg 03/20/17 22:00 03/23/17 09:33 Protonix Inj IVP 40 mg Q12 MARICHUY Administration - Patient Studies Lab Studies: Microbiology Studies 03/20/17 13:30 Blood Culture - Preliminary Blood NO GROWTH AFTER 3 DAYS 03/20/17 13:30 Blood Culture - Preliminary Blood NO GROWTH AFTER 3 DAYS Lab Studies 03/23/17 03/23/17 03/23/17 Range/Units 14:30 06:39 06:03 WBC (4.5-11.0) 10^3/ul RBC (3.5-6.1) 10^6/uL Hgb (14.0-18.0) g/dL Hct (42.0-52.0) % MCV (80.0-105.0) fl MCH (25.0-35.0) pg MCHC (31.0-37.0) g/dl RDW (11.5-14.5) % Plt Count (120.0-450.0) 10^3/uL MPV (7.0-11.0) fl pCO2 37 (35-45) mm/Hg pO2 71.0 L (80-100) mm/Hg HCO3 24.0 (21-28) mmol/L ABG pH 7.42 (7.35-7.45) ABG Total CO2 25.1 (22-28) mmol.L ABG O2 Saturation 97.8 (95-98) % ABG Base Excess -0.2 (-2.0-3.0) mmol/L ABG Potassium 3.4 L (3.6-5.2) mmol/L Glucose 88 (75-110) mg/dl Lactate 0.5 L (0.7-2.1) mmol/L FiO2 40.0 % Sodium 139.0 (132-148) mmol/L Potassium (3.6-5.0) mmol/L Chloride 113.0 H (98-107) mmol/L Carbon Dioxide (21-33) mmol/L Anion Gap (10-20) BUN (7-21) mg/dL Creatinine (0.8-1.5) mg/dL Est GFR ( Amer) Est GFR (Non-Af Amer) POC Glucose (mg/dL) 90 (65-110) mg/dL Random Glucose (70-110) mg/dL Calcium (8.4-10.5) mg/dL Phosphorus (2.5-4.5) mg/dL Magnesium 1.8 (1.7-2.2) mg/dL Total Bilirubin (0.2-1.3) mg/dL AST (17-59) U/L ALT (7-56) U/L Alkaline Phosphatase (38-126) U/L Total Protein (5.8-8.3) g/dL Albumin (3.0-4.8) g/dL Globulin gm/dL Albumin/Globulin Ratio (1.1-1.8) Arterial Blood Potassium 3.4 L (3.6-5.2) mmol/L 03/23/17 03/23/17 03/23/17 Range/Units 05:20 05:20 05:20 WBC 12.8 H (4.5-11.0) 10^3/ul RBC 3.25 L (3.5-6.1) 10^6/uL Hgb 9.4 L (14.0-18.0) g/dL Hct 28.5 L (42.0-52.0) % MCV 87.7 (80.0-105.0) fl MCH 28.9 (25.0-35.0) pg MCHC 33.0 (31.0-37.0) g/dl RDW 13.8 (11.5-14.5) % Plt Count 259 (120.0-450.0) 10^3/uL MPV 10.1 (7.0-11.0) fl pCO2 (35-45) mm/Hg pO2 (80-100) mm/Hg HCO3 (21-28) mmol/L ABG pH (7.35-7.45) ABG Total CO2 (22-28) mmol.L ABG O2 Saturation (95-98) % ABG Base Excess (-2.0-3.0) mmol/L ABG Potassium (3.6-5.2) mmol/L Glucose (75-110) mg/dl Lactate (0.7-2.1) mmol/L FiO2 % Sodium 139 (132-148) mmol/L Potassium 3.7 (3.6-5.0) mmol/L Chloride 107 (98-107) mmol/L Carbon Dioxide 26 (21-33) mmol/L Anion Gap 10 (10-20) BUN 8 (7-21) mg/dL Creatinine 0.6 L (0.8-1.5) mg/dL Est GFR ( Amer) > 60 Est GFR (Non-Af Amer) > 60 POC Glucose (mg/dL) (65-110) mg/dL Random Glucose 93 (70-110) mg/dL Calcium 8.7 (8.4-10.5) mg/dL Phosphorus 3.5 (2.5-4.5) mg/dL Magnesium 1.3 L (1.7-2.2) mg/dL Total Bilirubin 1.2 (0.2-1.3) mg/dL AST 97 H (17-59) U/L ALT 97 H (7-56) U/L Alkaline Phosphatase 106 (38-126) U/L Total Protein 7.1 (5.8-8.3) g/dL Albumin 3.3 (3.0-4.8) g/dL Globulin 3.8 gm/dL Albumin/Globulin Ratio 0.9 L (1.1-1.8) Arterial Blood Potassium (3.6-5.2) mmol/L 03/23/17 03/22/17 03/22/17 Range/Units 00:06 18:13 11:30 WBC (4.5-11.0) 10^3/ul RBC (3.5-6.1) 10^6/uL Hgb (14.0-18.0) g/dL Hct (42.0-52.0) % MCV (80.0-105.0) fl MCH (25.0-35.0) pg MCHC (31.0-37.0) g/dl RDW (11.5-14.5) % Plt Count (120.0-450.0) 10^3/uL MPV (7.0-11.0) fl pCO2 (35-45) mm/Hg pO2 (80-100) mm/Hg HCO3 (21-28) mmol/L ABG pH (7.35-7.45) ABG Total CO2 (22-28) mmol.L ABG O2 Saturation (95-98) % ABG Base Excess (-2.0-3.0) mmol/L ABG Potassium (3.6-5.2) mmol/L Glucose (75-110) mg/dl Lactate (0.7-2.1) mmol/L FiO2 % Sodium (132-148) mmol/L Potassium (3.6-5.0) mmol/L Chloride (98-107) mmol/L Carbon Dioxide (21-33) mmol/L Anion Gap (10-20) BUN (7-21) mg/dL Creatinine (0.8-1.5) mg/dL Est GFR ( Amer) Est GFR (Non-Af Amer) POC Glucose (mg/dL) 94 81 76 (65-110) mg/dL Random Glucose (70-110) mg/dL Calcium (8.4-10.5) mg/dL Phosphorus (2.5-4.5) mg/dL Magnesium (1.7-2.2) mg/dL Total Bilirubin (0.2-1.3) mg/dL AST (17-59) U/L ALT (7-56) U/L Alkaline Phosphatase (38-126) U/L Total Protein (5.8-8.3) g/dL Albumin (3.0-4.8) g/dL Globulin gm/dL Albumin/Globulin Ratio (1.1-1.8) Arterial Blood Potassium (3.6-5.2) mmol/L 03/22/17 03/22/17 Range/Units 06:10 00:47 WBC (4.5-11.0) 10^3/ul RBC (3.5-6.1) 10^6/uL Hgb (14.0-18.0) g/dL Hct (42.0-52.0) % MCV (80.0-105.0) fl MCH (25.0-35.0) pg MCHC (31.0-37.0) g/dl RDW (11.5-14.5) % Plt Count (120.0-450.0) 10^3/uL MPV (7.0-11.0) fl pCO2 (35-45) mm/Hg pO2 (80-100) mm/Hg HCO3 (21-28) mmol/L ABG pH (7.35-7.45) ABG Total CO2 (22-28) mmol.L ABG O2 Saturation (95-98) % ABG Base Excess (-2.0-3.0) mmol/L ABG Potassium (3.6-5.2) mmol/L Glucose (75-110) mg/dl Lactate (0.7-2.1) mmol/L FiO2 % Sodium (132-148) mmol/L Potassium (3.6-5.0) mmol/L Chloride (98-107) mmol/L Carbon Dioxide (21-33) mmol/L Anion Gap (10-20) BUN (7-21) mg/dL Creatinine (0.8-1.5) mg/dL Est GFR ( Amer) Est GFR (Non-Af Amer) POC Glucose (mg/dL) 73 99 (65-110) mg/dL Random Glucose (70-110) mg/dL Calcium (8.4-10.5) mg/dL Phosphorus (2.5-4.5) mg/dL Magnesium (1.7-2.2) mg/dL Total Bilirubin (0.2-1.3) mg/dL AST (17-59) U/L ALT (7-56) U/L Alkaline Phosphatase (38-126) U/L Total Protein (5.8-8.3) g/dL Albumin (3.0-4.8) g/dL Globulin gm/dL Albumin/Globulin Ratio (1.1-1.8) Arterial Blood Potassium (3.6-5.2) mmol/L Laboratory Results - last 24 hr 03/22/17 03/22/17 03/22/17 00:47 06:10 11:30 WBC RBC Hgb Hct MCV MCH MCHC RDW Plt Count MPV pCO2 pO2 HCO3 ABG pH ABG Total CO2 ABG O2 Saturation ABG Base Excess ABG Potassium Glucose Lactate FiO2 Sodium Potassium Chloride Carbon Dioxide Anion Gap BUN Creatinine Est GFR ( Amer) Est GFR (Non-Af Amer) POC Glucose (mg/dL) 99 73 76 Random Glucose Calcium Phosphorus Magnesium Total Bilirubin AST ALT Alkaline Phosphatase Total Protein Albumin Globulin Albumin/Globulin Ratio Arterial Blood Potassium 03/22/17 03/23/17 03/23/17 18:13 00:06 05:20 WBC 12.8 H RBC 3.25 L Hgb 9.4 L Hct 28.5 L MCV 87.7 MCH 28.9 MCHC 33.0 RDW 13.8 Plt Count 259 MPV 10.1 pCO2 pO2 HCO3 ABG pH ABG Total CO2 ABG O2 Saturation ABG Base Excess ABG Potassium Glucose Lactate FiO2 Sodium Potassium Chloride Carbon Dioxide Anion Gap BUN Creatinine Est GFR ( Amer) Est GFR (Non-Af Amer) POC Glucose (mg/dL) 81 94 Random Glucose Calcium Phosphorus Magnesium Total Bilirubin AST ALT Alkaline Phosphatase Total Protein Albumin Globulin Albumin/Globulin Ratio Arterial Blood Potassium 03/23/17 03/23/17 03/23/17 05:20 05:20 06:03 WBC RBC Hgb Hct MCV MCH MCHC RDW Plt Count MPV pCO2 pO2 HCO3 ABG pH ABG Total CO2 ABG O2 Saturation ABG Base Excess ABG Potassium Glucose Lactate FiO2 Sodium 139 Potassium 3.7 Chloride 107 Carbon Dioxide 26 Anion Gap 10 BUN 8 Creatinine 0.6 L Est GFR ( Amer) > 60 Est GFR (Non-Af Amer) > 60 POC Glucose (mg/dL) 90 Random Glucose 93 Calcium 8.7 Phosphorus 3.5 Magnesium 1.3 L Total Bilirubin 1.2 AST 97 H ALT 97 H Alkaline Phosphatase 106 Total Protein 7.1 Albumin 3.3 Globulin 3.8 Albumin/Globulin Ratio 0.9 L Arterial Blood Potassium 03/23/17 03/23/17 06:39 14:30 WBC RBC Hgb Hct MCV MCH MCHC RDW Plt Count MPV pCO2 37 pO2 71.0 L HCO3 24.0 ABG pH 7.42 ABG Total CO2 25.1 ABG O2 Saturation 97.8 ABG Base Excess -0.2 ABG Potassium 3.4 L Glucose 88 Lactate 0.5 L FiO2 40.0 Sodium 139.0 Potassium Chloride 113.0 H Carbon Dioxide Anion Gap BUN Creatinine Est GFR ( Amer) Est GFR (Non-Af Amer) POC Glucose (mg/dL) Random Glucose Calcium Phosphorus Magnesium 1.8 Total Bilirubin AST ALT Alkaline Phosphatase Total Protein Albumin Globulin Albumin/Globulin Ratio Arterial Blood Potassium 3.4 L Critical Care Progress Note - Nutrition Nutrition: Nutrition Category Date Time Status NPO Diet [DIET] Diets 03/14/17 Breakfast Ordered Attending/Attestation - Attestation I have personally seen and examined this patient.: Yes I have fully participated in the care of the patient.: Yes I have reviewed all pertinent clinical information: Yes Notes (Text): 03/23/17 15:42 36 y/o M w/ prolonged intubation following cardiac arrest x 2, ADS and septic shock. Currently in Status epilepticus - sedated on Propofol, Fentanyl and Versed. Keppra , Dilantin and Valproic acid cont. Repeat EEG done today. Pt seen to have generalized seizure activity . Electrolytes to be replaced. Tube feeds advanced. Awaiting a tertiary care center to possibly accept the patient for cont EEg monitoring in the setting of needing Pentobar Coma. Very poor prognosis and this was explained in detail to the and family on a daily basis. dvt p PPi CC time 65 min
[2017-03-23] MEDS: Potassium Chloride 40 MEQ in Sodium Chloride 0.45% 1,000 ML IV SCH (14:27)
--- NOTE | 2017-03-23 14:55 | CP.PCM.PN ---
Subjective - Date & Time of Evaluation Date of Evaluation: 03/23/17 Time of Evaluation: 07:20 - Subjective Subjective: General Surgery Note for Dr. Rousseau Patient seen and examined at bedside. No acute event overnight. Yesterday, family refused trach/g tube because they felt it was unsafe. They are now agreeable for future trach/g tube placement. He is still intubated and on vent support (FiO2 40% PEEP 8). Objective - Vital Signs/Intake and Output Vital Signs (last 24 hours): Temp Pulse Resp BP Pulse Ox 100.2 F H 125 H 19 138/70 92 L 03/23/17 11:37 03/23/17 14:50 03/23/17 13:20 03/23/17 14:00 03/23/17 14:50 Intake and Output: 03/23/17 03/23/17 06:59 18:59 Intake Total 4100 200 Output Total 3150 Balance 950 200 - Medications Medications: Current Medications Acetaminophen (Tylenol 325 Mg Supp) 325 mg RC Q4H PRN PRN Reason: Fever >100.4 F Last Admin: 03/22/17 21:00 Dose: 325 mg Albuterol/Ipratropium (Duoneb 3 Mg/0.5 Mg (3 Ml) Ud) 3 ml IH Q2H PRN PRN Reason: Shortness of Breath Last Admin: 03/13/17 15:45 Dose: 3 ml Albuterol/Ipratropium (Duoneb 3 Mg/0.5 Mg (3 Ml) Ud) 3 ml IH [id number] [facility] Last Admin: 03/23/17 13:39 Dose: 3 ml Chlorhexidine Gluconate (Peridex) 15 ml PO BID [facility] Last Admin: 03/23/17 11:00 Dose: 15 ml Propofol (Diprivan) 1,000 mg in 100 mls @ 3.674 mls/hr IV .Q24H PRN; Protocol; 5 MCG/KG/MIN PRN Reason: TITRATE PER MD ORDER Last Admin: 03/23/17 06:15 Dose: 50 mcg/kg/min, 36.741 mls/hr Levetiracetam 1,000 mg/ Sodium (Chloride) 110 mls @ 460 mls/hr IV Q12 [facility] Last Admin: 03/23/17 09:31 Dose: 460 mls/hr Potassium Chloride 40 meq/ (Sodium Chloride) 1,020 mls @ 100 mls/hr IV .[id number] [facility] Last Admin: 03/23/17 14:27 Dose: 100 mls/hr Phenytoin 100 mg/ Sodium (Chloride) 52 mls @ 104 mls/hr IVPB TID [facility] Last Admin: 03/23/17 14:26 Dose: 104 mls/hr Metronidazole (Flagyl) 500 mg in 100 mls @ 100 mls/hr IVPB Q8 [facility] PRN Reason: Protocol Stop: 03/28/17 14:01 Last Admin: 03/23/17 13:31 Dose: 100 mls/hr Valproate Sodium 500 mg/ (Sodium Chloride) 105 mls @ 100 mls/hr IVPB Q8 [facility] Last Admin: 03/23/17 13:25 Dose: 100 mls/hr Fentanyl Citrate (Fentanyl Citrate/Sodium Chloride 1 Mg/100 Ml) 1,000 mcg in 100 mls @ 2 mls/hr IV .Q24H PRN; Protocol; 20 MCG/HR PRN Reason: TITRATE PER MD ORDER Last Admin: 03/23/17 13:25 Dose: 200 mcg/hr, 20 mls/hr Midazolam 100 mg/100ml in NS (Midazolam 100 Mg/100ml In Ns) 100 mg in 100 mls @ 20 mls/hr IV .Q5H PRN; Protocol; 20 MG/HR PRN Reason: Sedation Last Admin: 03/23/17 06:18 Dose: 30 mg/hr, 30 mls/hr Magnesium Sulfate 2 gm/ Sodium (Chloride) 104 mls @ 102 mls/hr IVPB Q3 [facility] Stop: 03/23/17 16:02 Last Admin: 03/23/17 11:29 Dose: 102 mls/hr Acetaminophen (Ofirmev) 1,000 mg in 100 mls @ 400 mls/hr IVPB Q6H PRN PRN Reason: Temperature > 100.4F Stop: 03/25/17 08:33 Last Admin: 03/23/17 09:15 Dose: 400 mls/hr Vancomycin HCl (Vancomycin 1gm) 1 gm in 250 mls @ 167 mls/hr IVPB Q12H [facility] PRN Reason: Protocol Last Admin: 03/23/17 11:32 Dose: 167 mls/hr Piperacillin Sod/Tazobactam Sod (Zosyn 4.5 Gm In Ns 100ml) 4.5 gm in 100 mls @ 200 mls/hr IVPB Q6 [facility] PRN Reason: Protocol Stop: 03/23/17 18:29 Last Admin: 03/23/17 13:25 Dose: 200 mls/hr Metoprolol Tartrate (Lopressor) 5 mg IVP Q4 PRN PRN Reason: sbp>160 or HR > 130 BPM Pantoprazole Sodium (Protonix Inj) 40 mg IVP Q12 [facility] Last Admin: 03/23/17 09:33 Dose: 40 mg - Labs Labs: 03/23/17 05:20 03/23/17 05:20 PT 11.9 Seconds (9.9-11.8) H 03/22/17 05:30 INR 1.10 (0.93-1.08) H 03/22/17 05:30 APTT 24.9 Seconds (23.7-30.8) 03/22/17 05:30 - Constitutional Appears: No Acute Distress - Head Exam Head Exam: NORMOCEPHALIC - Eye Exam Eye Exam: Normal appearance - ENT Exam ENT Exam: Mucous Membranes Moist Additional comments: ET tube in place - Respiratory Exam Additional comments: intubated and on vent support - Cardiovascular Exam Cardiovascular Exam: Tachycardia - GI/Abdominal Exam GI & Abdominal Exam: Soft. absent: Tenderness - Neurological Exam Neurological Exam: Altered - Psychiatric Exam Psychiatric exam: Flat Affect - Skin Skin Exam: Dry, Warm Assessment and Plan - Assessment and Plan (Free Text) Plan: 36 M s/p Cardiac arrest likely secondary to substance abuse; in persistent vegetative state secondary to anoxic brain injury. Surgery was consulted for tracheostomy and gastrostomy tube placement -Tracheostomy and gastrostomy tube placement to be rescehduled as per family -Medically optimize patient -Management as per ICU -DW Dr. Eric Ferreira PGY1
--- NOTE | 2017-03-23 15:54 | CP.PCM.PN ---
Subjective - Date & Time of Evaluation Date of Evaluation: 03/23/17 Time of Evaluation: 10:00 - Subjective Subjective: Sedated, unresponsive Objective - Vital Signs/Intake and Output Vital Signs (last 24 hours): Temp Pulse Resp BP Pulse Ox 100.2 F H 125 H 19 138/70 92 L 03/23/17 11:37 03/23/17 14:50 03/23/17 13:20 03/23/17 14:00 03/23/17 14:50 Intake and Output: 03/23/17 03/23/17 06:59 18:59 Intake Total 4100 200 Output Total 3150 Balance 950 200 - Medications Medications: Current Medications Acetaminophen (Tylenol 325 Mg Supp) 325 mg RC Q4H PRN PRN Reason: Fever >100.4 F Last Admin: 03/22/17 21:00 Dose: 325 mg Albuterol/Ipratropium (Duoneb 3 Mg/0.5 Mg (3 Ml) Ud) 3 ml IH Q2H PRN PRN Reason: Shortness of Breath Last Admin: 03/13/17 15:45 Dose: 3 ml Albuterol/Ipratropium (Duoneb 3 Mg/0.5 Mg (3 Ml) Ud) 3 ml IH [id number] [facility] [place] Last Admin: 03/23/17 13:39 Dose: 3 ml Chlorhexidine Gluconate (Peridex) 15 ml PO BID [facility] [place] Last Admin: 03/23/17 11:00 Dose: 15 ml Propofol (Diprivan) 1,000 mg in 100 mls @ 3.674 mls/hr IV .Q24H PRN; Protocol; 5 MCG/KG/MIN PRN Reason: TITRATE PER MD ORDER Last Admin: 03/23/17 06:15 Dose: 50 mcg/kg/min, 36.741 mls/hr Levetiracetam 1,000 mg/ Sodium (Chloride) 110 mls @ 460 mls/hr IV Q12 [facility] [place] Last Admin: 03/23/17 09:31 Dose: 460 mls/hr Potassium Chloride 40 meq/ (Sodium Chloride) 1,020 mls @ 100 mls/hr IV .[id number] [facility] [place] Last Admin: 03/23/17 14:27 Dose: 100 mls/hr Phenytoin 100 mg/ Sodium (Chloride) 52 mls @ 104 mls/hr IVPB TID [facility] [place] Last Admin: 03/23/17 14:26 Dose: 104 mls/hr Metronidazole (Flagyl) 500 mg in 100 mls @ 100 mls/hr IVPB Q8 [facility] PRN Reason: Protocol Stop: 03/28/17 14:01 Last Admin: 03/23/17 13:31 Dose: 100 mls/hr Valproate Sodium 500 mg/ (Sodium Chloride) 105 mls @ 100 mls/hr IVPB Q8 [facility] Last Admin: 03/23/17 13:25 Dose: 100 mls/hr Fentanyl Citrate (Fentanyl Citrate/Sodium Chloride 1 Mg/100 Ml) 1,000 mcg in 100 mls @ 2 mls/hr IV .Q24H PRN; Protocol; 20 MCG/HR PRN Reason: TITRATE PER MD ORDER Last Admin: 03/23/17 13:25 Dose: 200 mcg/hr, 20 mls/hr Midazolam 100 mg/100ml in NS (Midazolam 100 Mg/100ml In Ns) 100 mg in 100 mls @ 20 mls/hr IV .Q5H PRN; Protocol; 20 MG/HR PRN Reason: Sedation Last Admin: 03/23/17 06:18 Dose: 30 mg/hr, 30 mls/hr Magnesium Sulfate 2 gm/ Sodium (Chloride) 104 mls @ 102 mls/hr IVPB Q3 [facility] Stop: 03/23/17 16:02 Last Admin: 03/23/17 11:29 Dose: 102 mls/hr Acetaminophen (Ofirmev) 1,000 mg in 100 mls @ 400 mls/hr IVPB Q6H PRN PRN Reason: Temperature > 100.4F Stop: 03/25/17 08:33 Last Admin: 03/23/17 09:15 Dose: 400 mls/hr Vancomycin HCl (Vancomycin 1gm) 1 gm in 250 mls @ 167 mls/hr IVPB Q12H [facility] PRN Reason: Protocol Last Admin: 03/23/17 11:32 Dose: 167 mls/hr Piperacillin Sod/Tazobactam Sod (Zosyn 4.5 Gm In Ns 100ml) 4.5 gm in 100 mls @ 200 mls/hr IVPB Q6 [facility] PRN Reason: Protocol Stop: 03/23/17 18:29 Last Admin: 03/23/17 13:25 Dose: 200 mls/hr Metoprolol Tartrate (Lopressor) 5 mg IVP Q4 PRN PRN Reason: sbp>160 or HR > 130 BPM Pantoprazole Sodium (Protonix Inj) 40 mg IVP Q12 [facility] Last Admin: 03/23/17 09:33 Dose: 40 mg - Labs Labs: 03/23/17 05:20 03/23/17 05:20 PT 11.9 Seconds (9.9-11.8) H 03/22/17 05:30 INR 1.10 (0.93-1.08) H 03/22/17 05:30 APTT 24.9 Seconds (23.7-30.8) 03/22/17 05:30 - Constitutional Appears: No Acute Distress, Chronically Ill - Head Exam Head Exam: NORMOCEPHALIC - Eye Exam Eye Exam: Normal appearance - ENT Exam ENT Exam: Mucous Membranes Moist - Respiratory Exam Respiratory Exam: Decreased Breath Sounds, NORMAL BREATHING PATTERN - Cardiovascular Exam Cardiovascular Exam: Tachycardia, +S1, +S2 - GI/Abdominal Exam GI & Abdominal Exam: Soft, Hypoactive Bowel Sounds - Extremities Exam Extremities Exam: Normal Capillary Refill, Normal Inspection - Neurological Exam Neurological Exam: Altered - Skin Skin Exam: Dry, Warm Assessment and Plan - Assessment and Plan (Free Text) Assessment: 36 year old male with history of substance abuse, bipolar disorder,depression who suffered cardiopulmonary arrest, anoxic brain injury and seizure disorder. EEG demonstrated anoxic brain injury and poor prognosis. Brain MRI showed anoxic injury in thalamic region bilaterally. Patient's seizure activity persistent despite anti seizure meds, fentanyl and midazolam. Patient is scheduled for tracheotomy and PEG once stable. understands that patient not been accepted for transfer to [facility] or [facility] for continuos EEG monitoring. understands that once stable patient will likely go to LT[facility]. I also spoke with about resuscitation if patients heart fails. I explained that if patients heart stops it is unlikely that he will survive even with aggressive CPR/efforts. Ramifications of aggressive CPR explained. states she understands but feels that his heart is strong and this will not happen. She is not willing to consider DNR at this time. Psychosocial support provided. Time spent in goals of care and advance care planning dismission, 30 minutes Plan: Goals of care Advance care planning
[2017-03-24] MEDS: Propofol 10 mg/ml 1,000 MG/100 ML VIAL IV PRN ×3 (00:21→21:17)
[2017-03-24] MEDS: Albuterol-Ipratrop 3 mg / 0.5 (3 ml) UD IH SCH ×4 (01:37→20:03)
[2017-03-24] MEDS: Potassium Chloride 40 MEQ in Sodium Chloride 0.45% 1,000 ML IV SCH (01:57)
[2017-03-24] MEDS: Midazolam 100 mg/100ml in NS 100 MG/100 ML SOL IV PRN ×4 (03:39→21:06)
[2017-03-24] MEDS: Metoprolol 1 mg/ml Inj IVP PRN (03:52)
[2017-03-24] MEDS: Fentanyl 1000mcg/100ml NS 1,000 MCG/100 ML BAG IV PRN ×4 (04:13→20:10)
[2017-03-24 05:35] LABS: ARTERIAL BLOOD GAS HCO3 23.8 mmol/L (21-28); ARTERIAL BLOOD GAS PH 7.48 (7.35-7.45)
[2017-03-24] MEDS: metroNIDAZOLE IV 500 mg/100 ml 500 MG/100 ML BAG IVPB SCH ×3 (06:05→21:23)
[2017-03-24] MEDS: Valproate 500 MG in Sodium Chloride 0.9% 100 ML IVPB SCH ×3 (06:06→21:56)
[2017-03-24 06:16] LABS: MEAN CELL VOLUME 87.5 fl (80.0-105.0); MEAN CORPUSCULAR HEMOGLOBIN 28.8 pg (25.0-35.0); MEAN CORPUSCULAR HGB CONC 32.9 g/dl (31.0-37.0); MEAN PLATELET VOLUME 10.1 fl (7.0-11.0); RED CELL DISTRIBUTION WIDTH 13.9 % (11.5-14.5); WHITE BLOOD COUNT 12.5 10^3/ul (4.5-11.0)
[2017-03-24 06:26] LABS: ALB/GLOB RATIO 0.9 (1.1-1.8); ALKALINE PHOSPHATASE 114 U/L (38-126); ALT/SGPT 116 U/L (7-56); AST/SGOT 108 U/L (17-59); BILIRUBIN,TOTAL 1.4 mg/dL (0.2-1.3); BLOOD UREA NITROGEN 11 mg/dL (7-21); CALCIUM 8.9 mg/dL (8.4-10.5); CARBON DIOXIDE 25 mmol/L (21-33); CHLORIDE 104 mmol/L (95-110); GFR AFRICAN-AMERICAN > 60; GLUCOSE,RANDOM 93 mg/dL (70-110); POTASSIUM 3.9 mmol/L (3.6-5.0); SODIUM 140 mmol/L (132-148); TOTAL PROTEIN 7.3 g/dL (5.8-8.3)
[2017-03-24 06:59] LABS: MAGNESIUM 1.5 mg/dL (1.7-2.2); PHOSPHOROUS 3.6 mg/dL (2.5-4.5)
[2017-03-24] MEDS: Magnesium Sulfate 2 GM in Sodium Chloride 0.9% 100 ML IVPB SCH ×2 (07:46→10:47)
--- NOTE | 2017-03-24 08:46 | RAD ---
HISTORY: intubated, f/u COMPARISON: 03/23/2017 FINDINGS: LUNGS: No active pulmonary disease. PLEURA: No significant pleural effusion identified, no pneumothorax apparent. CARDIOVASCULAR: Normal. OSSEOUS STRUCTURES: No significant abnormalities. VISUALIZED UPPER ABDOMEN: Normal. OTHER FINDINGS: Endotracheal and nasogastric tubes in satisfactory position IMPRESSION: No active disease.
[2017-03-24] MEDS: Vancomycin 1gm in NS 250ml 1 GM/250 ML BAG IVPB SCH ×2 (08:47→21:24)
[2017-03-24] MEDS ORDERED: Magnesium Sulfate 2 GM in Sodium Chloride 0.9% 100 ML IVPB SCH (09:00)
--- NOTE | 2017-03-24 09:04 | RAD ---
HISTORY: firm abdomen, new finding COMPARISON: No prior. FINDINGS: BOWEL: Normal. No obstruction. No free air. BONES: Normal. OTHER FINDINGS: None. IMPRESSION: No active disease.
--- NOTE | 2017-03-24 10:05 | CP.CCUPN ---
<Jerman Kilgore - Last Filed: 03/24/17 13:55> CCU Subjective - Physician Review Subjective (Free Text): 03/24/17 10:01 Patient seen and examined at bedside in the ICU. Due to persistent seizure episodes despite sedation and seizure ppx, the patient is now on Propofol/Versed /Fentanyl for sedation, and Keppra/Phenytoin/Valproic Acid for seizure ppx. No further coffee-ground emesis episodes reported; more seizures reported overnight. Remains intubated, sedated. Attempting to arrange transfer to center for 24-hour EEG monitoring and possible barbiturate coma; so far refused at [facility] and [facility] unable to reach [facility]. Now pending Trach/G-tube today. CCU Objective - Vital Signs / Intake & Output Vital Signs (Last 4 hours): Vital Signs Pulse Resp Pulse Ox 03/24/17 07:36 18 66 L 03/24/17 06:30 130 H 99 03/24/17 06:23 130 H 03/24/17 06:22 132 H 03/24/17 06:21 130 H 03/24/17 06:20 131 H 03/24/17 06:18 131 H 03/24/17 06:17 133 H 03/24/17 06:16 132 H 03/24/17 06:10 130 H 66 L Intake and Output (Last 8hrs): Intake & Output 03/23/17 03/24/17 03/24/17 22:59 06:59 14:59 Intake Total 2570 3687 100 Output Total 4950 1450 Balance -2380 2237 100 Intake: IV 2570 3687 100 Left Antecubital 2350 3107 Output: Urine 4950 1450 Urethral (Arment[place]) 4950 1450 - Physical Exam Head: Positive for: Atraumatic, Normocephalic. Negative for: Ecchymosis, Abrasion, Laceration Pupils: Positive for: Non-Reactive, Pinpoint Extroacular Muscles: Positive for: Other (unable to assess due to not following commands, not moving eyes spontaneously, no avoidance of direct light challenge for PERRL assessment; decreased intermittent fluttering of eyelids, eyes remain gazing downward, No doll eyes) Conjunctiva: Negative for: Injected, Icteric Mouth: Positive for: Moist Mucous Membranes, Other (ETT in place with bite guard ). Negative for: Drooling Nose (External): Positive for: Atraumatic, Other (NGT in place set to suction, no more coffee-ground colored drainage noted). Negative for: Abrasion, Contusion, Laceration Neck: Positive for: Trachea Midline. Negative for: JVD, Lymphadenopathy Respiratory/Chest: Positive for: Clear to Auscultation, Good Air Exchange, Rales (mild-moderate rales in all breath seg[place], unchanged). Negative for: Accessory Muscle Use, Wheezes, Tachypneic Cardiovascular: Positive for: Normal S1, S2, Tachycardic. Negative for: Murmurs , Irregular Rhythm Abdomen: Negative for: Distention (obese but not distended, soft on palpation, no palpable masses or pulsatile masses), Normal Bowel Sounds (diminished but present bowel sounds, unchanged from multiple prior exams), Mass/Organomegaly Upper Extremity: Positive for: Normal Inspection. Negative for: Cyanosis, Edema , Normal ROM, NORMAL PULSES (faintly palpable radials +1), Swelling, Erythema, Deformity Lower Extremity: Positive for: Normal Inspection. Negative for: Edema, NORMAL PULSES (unable to palpate bilateral dorsalis pedis or posterior tibials), Cyanosis, Swelling, Erythema, Deformity Neurological: Positive for: Other (intubated and sedated, now off paralytics for ~12 hrs). Negative for: GCS=15 (GCS 3 (E1 V1t M1)), CN II-XII Intact, Speech Normal, Motor Func Grossly Intact Skin: Positive for: Warm, Dry, Normal Color. Negative for: Rashes Psychiatric: Positive for: Other (sedated and intubated, unable to assess). Negative for: Alert, Oriented x 3, Normal Insight, Normal Concentration, Normal Affect, Normal Mood - Medications Active Medications: Active Medications Generic Name Dose Route Start Last Admin Trade Name Freq PRN Reason Stop Dose Admin Acetaminophen 325 mg 03/22/17 20:47 03/22/17 21:00 Tylenol 325 Mg Supp RC 325 mg Q4H PRN Administration Fever >100.4 F Albuterol/Ipratropium 3 ml 03/13/17 15:07 03/13/17 15:45 Duoneb 3 Mg/0.5 Mg (3 Ml) Ud IH 3 ml Q2H PRN Administration Shortness of Breath Albuterol/Ipratropium 3 ml 03/13/17 20:00 03/24/17 07:36 Duoneb 3 Mg/0.5 Mg (3 Ml) Ud IH 3 ml [id number] MARICHUY Administration Chlorhexidine Gluconate 15 ml 03/13/17 10:00 03/23/17 18:36 Peridex PO 15 ml BID MARICHUY Administration Propofol 1,000 mg in 100 mls @ 3.674 mls/hr 03/12/17 07:41 03/24/17 02:27 Diprivan IV 50 mcg/kg/min .Q24H PRN 36.741 mls/hr TITRATE PER MD ORDER Administration Protocol 5 MCG/KG/MIN Levetiracetam 1,000 mg/ Sodium 110 mls @ 460 mls/hr 03/12/17 22:00 03/23/17 22:30 Chloride IV 460 mls/hr Q12 MARICHUY Administration Potassium Chloride 40 meq/ 1,020 mls @ 100 mls/hr 03/17/17 21:40 03/24/17 01: 57 Sodium Chloride IV 100 mls/hr .[id number] MARICHUY Administration Phenytoin 100 mg/ Sodium 52 mls @ 104 mls/hr 03/18/17 10:00 03/23/17 18:34 Chloride IVPB 104 mls/hr TID MARICHUY Administration Metronidazole 500 mg in 100 mls @ 100 mls/hr 03/20/17 14:00 03/24/17 06:05 Flagyl IVPB 03/28/17 14:01 100 mls/hr Q8 MARICHUY Administration Protocol Valproate Sodium 500 mg/ 105 mls @ 100 mls/hr 03/21/17 14:00 03/24/17 06:06 Sodium Chloride IVPB 100 mls/hr Q8 MARICHUY Administration Fentanyl Citrate 1,000 mcg in 100 mls @ 2 mls/hr 03/21/17 15:18 03/24/17 09: 21 Fentanyl Citrate/Sodium Chloride 1 Mg/100 Ml IV 200 mcg/hr .Q24H PRN 20 mls/hr TITRATE PER MD ORDER Administration Protocol 20 MCG/HR Midazolam 100 mg/100ml in NS 100 mg in 100 mls @ 20 mls/hr 03/21/17 17:30 03:39 Midazolam 100 Mg/100ml In Ns IV 30 mg/hr .Q5H PRN 30 mls/hr Sedation Administration Protocol 20 MG/HR Acetaminophen 1,000 mg in 100 mls @ 400 mls/hr 03/23/17 08:32 03/24/17 04:37 Ofirmev IVPB 03/25/17 08:33 400 mls/hr Q6H PRN Administration Temperature > 100.4F Vancomycin HCl 1 gm in 250 mls @ 167 mls/hr 03/23/17 09:45 03/24/17 08:47 Vancomycin 1gm IVPB 167 mls/hr Q12H MARICHUY Administration Protocol Magnesium Sulfate 2 gm/ Sodium 104 mls @ 102 mls/hr 03/24/17 07:00 03/24/17 07:46 Chloride IVPB 03/24/17 11:02 102 mls/hr Q3H MARICHUY Administration Metoprolol Tartrate 5 mg 03/21/17 16:38 03/24/17 03:52 Lopressor IVP 5 mg Q4 PRN Administration sbp>160 or HR > 130 BPM Pantoprazole Sodium 40 mg 03/20/17 22:00 03/23/17 22:17 Protonix Inj IVP 40 mg Q12 MARICHUY Administration - Patient Studies Lab Studies: Microbiology Studies 03/20/17 13:30 Blood Culture - Preliminary Blood NO GROWTH AFTER 3 DAYS 03/20/17 13:30 Blood Culture - Preliminary Blood NO GROWTH AFTER 3 DAYS Lab Studies 03/24/17 03/24/17 03/24/17 Range/Units 06:43 05:20 05:20 WBC (4.5-11.0) 10^3/ul RBC (3.5-6.1) 10^6/uL Hgb (14.0-18.0) g/dL Hct (42.0-52.0) % MCV (80.0-105.0) fl MCH (25.0-35.0) pg MCHC (31.0-37.0) g/dl RDW (11.5-14.5) % Plt Count (120.0-450.0) 10^3/uL MPV (7.0-11.0) fl pCO2 (35-45) mm/Hg pO2 (80-100) mm/Hg HCO3 (21-28) mmol/L ABG pH (7.35-7.45) ABG Total CO2 (22-28) mmol.L ABG O2 Saturation (95-98) % ABG Base Excess (-2.0-3.0) mmol/L ABG Potassium (3.6-5.2) mmol/L Sodium 140 (132-148) mmol/L Chloride 104 (98-107) mmol/L Glucose (75-110) mg/dl Lactate (0.7-2.1) mmol/L FiO2 % Potassium 3.9 (3.6-5.0) mmol/L Carbon Dioxide 25 (21-33) mmol/L Anion Gap 15 (10-20) BUN 11 (7-21) mg/dL Creatinine 0.6 L (0.8-1.5) mg/dL Est GFR ( Amer) > 60 Est GFR (Non-Af Amer) > 60 POC Glucose (mg/dL) 95 (65-110) mg/dL Random Glucose 93 (70-110) mg/dL Calcium 8.9 (8.4-10.5) mg/dL Phosphorus 3.6 (2.5-4.5) mg/dL Magnesium 1.5 L (1.7-2.2) mg/dL Total Bilirubin 1.4 H (0.2-1.3) mg/dL AST 108 H (17-59) U/L ALT 116 H (7-56) U/L Alkaline Phosphatase 114 (38-126) U/L Total Protein 7.3 (5.8-8.3) g/dL Albumin 3.5 (3.0-4.8) g/dL Globulin 3.8 gm/dL Albumin/Globulin Ratio 0.9 L (1.1-1.8) Arterial Blood Potassium (3.6-5.2) mmol/L 03/24/17 03/24/17 03/24/17 Range/Units 05:20 05:10 00:24 WBC 12.5 H (4.5-11.0) 10^3/ul RBC 3.20 L (3.5-6.1) 10^6/uL Hgb 9.2 L (14.0-18.0) g/dL Hct 28.0 L (42.0-52.0) % MCV 87.5 (80.0-105.0) fl MCH 28.8 (25.0-35.0) pg MCHC 32.9 (31.0-37.0) g/dl RDW 13.9 (11.5-14.5) % Plt Count 287 (120.0-450.0) 10^3/uL MPV 10.1 (7.0-11.0) fl pCO2 32 L (35-45) mm/Hg pO2 129.0 H (80-100) mm/Hg HCO3 23.8 (21-28) mmol/L ABG pH 7.48 H (7.35-7.45) ABG Total CO2 24.8 (22-28) mmol.L ABG O2 Saturation 99.2 H (95-98) % ABG Base Excess 0.9 (-2.0-3.0) mmol/L ABG Potassium 3.8 (3.6-5.2) mmol/L Sodium 139.0 (132-148) mmol/L Chloride 108.0 H (98-107) mmol/L Glucose 93 (75-110) mg/dl Lactate 0.7 (0.7-2.1) mmol/L FiO2 40.0 % Potassium (3.6-5.0) mmol/L Carbon Dioxide (21-33) mmol/L Anion Gap (10-20) BUN (7-21) mg/dL Creatinine (0.8-1.5) mg/dL Est GFR ( Amer) Est GFR (Non-Af Amer) POC Glucose (mg/dL) 87 (65-110) mg/dL Random Glucose (70-110) mg/dL Calcium (8.4-10.5) mg/dL Phosphorus (2.5-4.5) mg/dL Magnesium (1.7-2.2) mg/dL Total Bilirubin (0.2-1.3) mg/dL AST (17-59) U/L ALT (7-56) U/L Alkaline Phosphatase (38-126) U/L Total Protein (5.8-8.3) g/dL Albumin (3.0-4.8) g/dL Globulin gm/dL Albumin/Globulin Ratio (1.1-1.8) Arterial Blood Potassium 3.8 (3.6-5.2) mmol/L 03/23/17 03/23/17 03/23/17 Range/Units 19:02 14:30 12:03 WBC (4.5-11.0) 10^3/ul RBC (3.5-6.1) 10^6/uL Hgb (14.0-18.0) g/dL Hct (42.0-52.0) % MCV (80.0-105.0) fl MCH (25.0-35.0) pg MCHC (31.0-37.0) g/dl RDW (11.5-14.5) % Plt Count (120.0-450.0) 10^3/uL MPV (7.0-11.0) fl pCO2 (35-45) mm/Hg pO2 (80-100) mm/Hg HCO3 (21-28) mmol/L ABG pH (7.35-7.45) ABG Total CO2 (22-28) mmol.L ABG O2 Saturation (95-98) % ABG Base Excess (-2.0-3.0) mmol/L ABG Potassium (3.6-5.2) mmol/L Sodium (132-148) mmol/L Chloride (98-107) mmol/L Glucose (75-110) mg/dl Lactate (0.7-2.1) mmol/L FiO2 % Potassium (3.6-5.0) mmol/L Carbon Dioxide (21-33) mmol/L Anion Gap (10-20) BUN (7-21) mg/dL Creatinine (0.8-1.5) mg/dL Est GFR ( Amer) Est GFR (Non-Af Amer) POC Glucose (mg/dL) 83 99 (65-110) mg/dL Random Glucose (70-110) mg/dL Calcium (8.4-10.5) mg/dL Phosphorus (2.5-4.5) mg/dL Magnesium 1.8 (1.7-2.2) mg/dL Total Bilirubin (0.2-1.3) mg/dL AST (17-59) U/L ALT (7-56) U/L Alkaline Phosphatase (38-126) U/L Total Protein (5.8-8.3) g/dL Albumin (3.0-4.8) g/dL Globulin gm/dL Albumin/Globulin Ratio (1.1-1.8) Arterial Blood Potassium (3.6-5.2) mmol/L Laboratory Results - last 24 hr 10/17/17 10/17/17 10/17/17 12:03 14:30 19:02 WBC RBC Hgb Hct MCV MCH MCHC RDW Plt Count MPV pCO2 pO2 HCO3 ABG pH ABG Total CO2 ABG O2 Saturation ABG Base Excess ABG Potassium Sodium Chloride Glucose Lactate FiO2 Potassium Carbon Dioxide Anion Gap BUN Creatinine Est GFR ( Amer) Est GFR (Non-Af Amer) POC Glucose (mg/dL) 99 83 Random Glucose Calcium Phosphorus Magnesium 1.8 Total Bilirubin AST ALT Alkaline Phosphatase Total Protein Albumin Globulin Albumin/Globulin Ratio Arterial Blood Potassium 03/24/17 03/24/17 03/24/17 00:24 05:10 05:20 WBC 12.5 H RBC 3.20 L Hgb 9.2 L Hct 28.0 L MCV 87.5 MCH 28.8 MCHC 32.9 RDW 13.9 Plt Count 287 MPV 10.1 pCO2 32 L pO2 129.0 H HCO3 23.8 ABG pH 7.48 H ABG Total CO2 24.8 ABG O2 Saturation 99.2 H ABG Base Excess 0.9 ABG Potassium 3.8 Sodium 139.0 Chloride 108.0 H Glucose 93 Lactate 0.7 FiO2 40.0 Potassium Carbon Dioxide Anion Gap BUN Creatinine Est GFR ( Amer) Est GFR (Non-Af Amer) POC Glucose (mg/dL) 87 Random Glucose Calcium Phosphorus Magnesium Total Bilirubin AST ALT Alkaline Phosphatase Total Protein Albumin Globulin Albumin/Globulin Ratio Arterial Blood Potassium 3.8 03/24/17 03/24/17 03/24/17 05:20 05:20 06:43 WBC RBC Hgb Hct MCV MCH MCHC RDW Plt Count MPV pCO2 pO2 HCO3 ABG pH ABG Total CO2 ABG O2 Saturation ABG Base Excess ABG Potassium Sodium 140 Chloride 104 Glucose Lactate FiO2 Potassium 3.9 Carbon Dioxide 25 Anion Gap 15 BUN 11 Creatinine 0.6 L Est GFR ( Amer) > 60 Est GFR (Non-Af Amer) > 60 POC Glucose (mg/dL) 95 Random Glucose 93 Calcium 8.9 Phosphorus 3.6 Magnesium 1.5 L Total Bilirubin 1.4 H AST 108 H ALT 116 H Alkaline Phosphatase 114 Total Protein 7.3 Albumin 3.5 Globulin 3.8 Albumin/Globulin Ratio 0.9 L Arterial Blood Potassium Fingerstick Blood Sugar Results: 95 Review of Systems - Review of Systems Systems not reviewed;Unavailable: Intubated Critical Care Progress Note - Nutrition Nutrition: Nutrition Category Date Time Status NPO Diet [DIET] Diets 03/14/17 Breakfast Ordered Assessment/Plan - Assessment and Plan (Free Text) Assessment: This is a 36 yo M with past medical history of substance abuse, depression, bipolar disorder, hypertension, anxiety disorder that presented with cardiac arrest in the field (downtime unknown) due to multi-drug overdose, with two further episodes of cardiac arrest on arrival, and witnessed seizure prior to initiation of increased sedation and paralytics. Remains off paralytics, but remains on high doses of sedatives due to multiple witnessed seizures, concerning for likely Status Epilepticus. Will require transfer to center with 24-hour continuous EEG monitoring, so far denied at [facility] and [facility] Pending Trach/G-tube placement today. Overall prognosis is poor. Plan: Neuro: -continuing to seize despite sedation with Propofol/Versed/Fentanyl and seizure ppx with Dilantin/Keppra/Valproic Acid, likely status epilepticus -At this point, next intervention would be barbiturate coma, which requires 24- hour continuous EEG monitoring; [facility] and [facility] have denied for transfer, unable to reach [facility] -MRI brain notable for likely anoxic injury in thalamix area bilaterally -Repeat EEG ordered today, pending read -No longer actively cooling, maintain normothermia -Urine toxicology on admission positive for opiates, barbiturates and benzos -Neurology consulted - Dr. Rene, appreciate all recs; poor prognosis given burst suppression pattern on EEG with seizure when weaned from sedation, likely status epilepticus given persisting seizures, needs 24-hour EEG monitoring for Status, which will require a transfer -Poison control following Pulm: -Satting 95-100%, ABG this AM reviewed, improved pO2 otherwise unchanged, continue to monitor -CXR this AM reviewed, unchanged as compared to yesterday -Currently on PRVC, tolerating pressure support, continue to monitor Cardio: -Off all pressor support >7 days, maintaining MAP > 65 consistently -Tachycardic 100's since x4 days, possibly rebound from precedex d/c vs 2/2 status epilepticus -Troponins increased from <0.01 to 0.13 on admission -most recent EKG 03/13, notable for sinus halina to 48 and prolonged QTc at 537 ( unsurprising in setting of multi-drug abuse) -Cardiology consulted - Dr. Anderson -Echo notable for EF 54%, normal size/wall thickness LV, flattened septum, mild Pulm HTN/TR, mild RV dilation GI: -NPO -NGT placed -GI prophylaxis with protonix -LFTs improving -s/p x3 dosing of Acetadote as per Poison Control, no additional doses ordered -coffee-ground emesis on 03/20, 600cc drainage after NGT set to suction; no free air under the diaphragm or obstruction on Abd CXR; H Pylori antigen test ordered, empiric coverage with Flagyl (day 5 )), Protonix BID Renal: -Cr stable at 0.6, OTONIEL resolved -Hypernatremia resolved, Na today 140 -Will continue to monitor and treat electrolyte abnormalities as indicated; persistently low K requiring chronic repletion -Monitor I's and O's -Nephro following, appreciate all recs Endo: -Fingersticks q4h -Maintain euglycemia between 140-180's ID: -multiple Blood and urine cultures drawn, remain negative -Most recent sputum (03/16) positive for light growth yeast, all other sputum cultures negative -Patient was empirically covered with Cefepime, Levofloxacin, and Vanco; all now d/c; currently on Flagyl (day ) for empiric H Pylori coverage -Febrile overnight, Tmax 102.3F -Ofirmev for fevers, new blood/urine/sputum cx ordered Heme: -Hgb 9.2, stool occult pending, iron panel wnl -SCDs for DVT ppx -Coags stable, last INR 1.10 Dispo: ICU, intubated/sedated, s/p EEG with burst-suppression pattern, s/p GI bleed suspected 2/2 ulceration from NGT; likely Status Epilepticus, requires 24- hour EEG monitoring and likely Barbiturate coma, denied transfer to [facility] and [facility], unable to contact [facility]; prognosis is very poor FEN: NPO, NS with KCl 40mEq at 100cc/hr Access: Peripheral IVs Consults: Neuro, Cardio, Nephro, Poison Control, Surgery Ppx: Protonix covers for GI, SCDs for DVT Patient seen, examined, and reviewed with attending, Dr. Rachelle Davila MD,Inamul H - Last Filed: 03/24/17 17:22> CCU Objective - Vital Signs / Intake & Output Vital Signs (Last 4 hours): Vital Signs Pulse BP 03/24/17 13:51 130 H 127/77 Intake and Output (Last 8hrs): Intake & Output 03/24/17 03/24/17 03/24/17 06:59 14:59 22:59 Intake Total 3787 200 Output Total 1450 Balance 2337 200 Intake: IV 3787 200 Left Antecubital 3107 Output: Urine 1450 Urethral (Armenta) 1450 - Medications Active Medications: Active Medications Generic Name Dose Route Start Last Admin Trade Name Freq PRN Reason Stop Dose Admin Acetaminophen 325 mg 03/22/17 20:47 03/22/17 21:00 Tylenol 325 Mg Supp RC 325 mg Q4H PRN Administration Fever >100.4 F Albuterol/Ipratropium 3 ml 03/13/17 15:07 03/13/17 15:45 Duoneb 3 Mg/0.5 Mg (3 Ml) Ud IH 3 ml Q2H PRN Administration Shortness of Breath Albuterol/Ipratropium 3 ml 03/13/17 20:00 03/24/17 13:25 Duoneb 3 Mg/0.5 Mg (3 Ml) Ud IH 3 ml [id number] MARICHUY Administration Chlorhexidine Gluconate 15 ml 03/13/17 10:00 03/24/17 10:47 Peridex PO 15 ml BID MARICHUY Administration Propofol 1,000 mg in 100 mls @ 3.674 mls/hr 03/12/17 07:41 03/24/17 02:27 Diprivan IV 50 mcg/kg/min .Q24H PRN 36.741 mls/hr TITRATE PER MD ORDER Administration Protocol 5 MCG/KG/MIN Potassium Chloride 40 meq/ 1,020 mls @ 100 mls/hr 03/17/17 21:40 03/24/17 01: 57 Sodium Chloride IV 100 mls/hr .[id number] MARICHUY Administration Phenytoin 100 mg/ Sodium 52 mls @ 104 mls/hr 03/18/17 10:00 03/24/17 13:48 Chloride IVPB 104 mls/hr TID MARICHUY Administration Metronidazole 500 mg in 100 mls @ 100 mls/hr 03/20/17 14:00 03/24/17 13:49 Flagyl IVPB 03/28/17 14:01 100 mls/hr Q8 MARICHUY Administration Protocol Valproate Sodium 500 mg/ 105 mls @ 100 mls/hr 03/21/17 14:00 03/24/17 13:48 Sodium Chloride IVPB 100 mls/hr Q8 MARICHUY Administration Fentanyl Citrate 1,000 mcg in 100 mls @ 2 mls/hr 03/21/17 15:18 03/24/17 14: 28 Fentanyl Citrate/Sodium Chloride 1 Mg/100 Ml IV 200 mcg/hr .Q24H PRN 20 mls/hr TITRATE PER MD ORDER Administration Protocol 20 MCG/HR Midazolam 100 mg/100ml in NS 100 mg in 100 mls @ 20 mls/hr 03/21/17 17:30 14:07 Midazolam 100 Mg/100ml In Ns IV 30 mg/hr .Q5H PRN 30 mls/hr Sedation Administration Protocol 20 MG/HR Acetaminophen 1,000 mg in 100 mls @ 400 mls/hr 03/23/17 08:32 03/24/17 04:37 Ofirmev IVPB 03/25/17 08:33 400 mls/hr Q6H PRN Administration Temperature > 100.4F Vancomycin HCl 1 gm in 250 mls @ 167 mls/hr 03/23/17 09:45 03/24/17 08:47 Vancomycin 1gm IVPB 167 mls/hr Q12H MARICHUY Administration Protocol Levetiracetam 1,500 mg/ Sodium 115 mls @ 460 mls/hr 03/24/17 15:20 Chloride IV Q12 MARICHUY Metoprolol Tartrate 5 mg 03/21/17 16:38 03/24/17 03:52 Lopressor IVP 5 mg Q4 PRN Administration sbp>160 or HR > 130 BPM Metoprolol Tartrate 12.5 mg 03/24/17 13:15 03/24/17 13:51 Lopressor PO 12.5 mg BID MARICHUY Administration Pantoprazole Sodium 40 mg 03/20/17 22:00 03/24/17 10:48 Protonix Inj IVP 40 mg Q12 MARICHUY Administration - Patient Studies Lab Studies: Microbiology Studies 03/20/17 13:30 Blood Culture - Preliminary Blood NO GROWTH AFTER 4 DAYS 03/20/17 13:30 Blood Culture - Preliminary Blood NO GROWTH AFTER 4 DAYS 03/23/17 12:00 Blood Culture - Preliminary Blood NO GROWTH AFTER 24 HOURS 03/23/17 10:15 Blood Culture - Preliminary Blood NO GROWTH AFTER 24 HOURS Lab Studies 03/24/17 03/24/17 03/24/17 Range/Units 13:45 06:43 05:20 WBC (4.5-11.0) 10^3/ul RBC (3.5-6.1) 10^6/uL Hgb (14.0-18.0) g/dL Hct (42.0-52.0) % MCV (80.0-105.0) fl MCH (25.0-35.0) pg MCHC (31.0-37.0) g/dl RDW (11.5-14.5) % Plt Count (120.0-450.0) 10^3/uL MPV (7.0-11.0) fl pCO2 (35-45) mm/Hg pO2 (80-100) mm/Hg HCO3 (21-28) mmol/L ABG pH (7.35-7.45) ABG Total CO2 (22-28) mmol.L ABG O2 Saturation (95-98) % ABG Base Excess (-2.0-3.0) mmol/L ABG Potassium (3.6-5.2) mmol/L Sodium (132-148) mmol/L Chloride (98-107) mmol/L Glucose (75-110) mg/dl Lactate (0.7-2.1) mmol/L FiO2 % Potassium (3.6-5.0) mmol/L Carbon Dioxide (21-33) mmol/L Anion Gap (10-20) BUN (7-21) mg/dL Creatinine (0.8-1.5) mg/dL Est GFR ( Amer) Est GFR (Non-Af Amer) POC Glucose (mg/dL) 95 (65-110) mg/dL Random Glucose (70-110) mg/dL Calcium (8.4-10.5) mg/dL Phosphorus 3.6 (2.5-4.5) mg/dL Magnesium 1.5 L (1.7-2.2) mg/dL Total Bilirubin (0.2-1.3) mg/dL AST (17-59) U/L ALT (7-56) U/L Alkaline Phosphatase (38-126) U/L Total Protein (5.8-8.3) g/dL Albumin (3.0-4.8) g/dL Globulin gm/dL Albumin/Globulin Ratio (1.1-1.8) Arterial Blood Potassium (3.6-5.2) mmol/L Phenytoin < 3 L (10-20) ug/mL 03/24/17 03/24/17 03/24/17 Range/Units 05:20 05:20 05:10 WBC 12.5 H (4.5-11.0) 10^3/ul RBC 3.20 L (3.5-6.1) 10^6/uL Hgb 9.2 L (14.0-18.0) g/dL Hct 28.0 L (42.0-52.0) % MCV 87.5 (80.0-105.0) fl MCH 28.8 (25.0-35.0) pg MCHC 32.9 (31.0-37.0) g/dl RDW 13.9 (11.5-14.5) % Plt Count 287 (120.0-450.0) 10^3/uL MPV 10.1 (7.0-11.0) fl pCO2 32 L (35-45) mm/Hg pO2 129.0 H (80-100) mm/Hg HCO3 23.8 (21-28) mmol/L ABG pH 7.48 H (7.35-7.45) ABG Total CO2 24.8 (22-28) mmol.L ABG O2 Saturation 99.2 H (95-98) % ABG Base Excess 0.9 (-2.0-3.0) mmol/L ABG Potassium 3.8 (3.6-5.2) mmol/L Sodium 140 139.0 (132-148) mmol/L Chloride 104 108.0 H (98-107) mmol/L Glucose 93 (75-110) mg/dl Lactate 0.7 (0.7-2.1) mmol/L FiO2 40.0 % Potassium 3.9 (3.6-5.0) mmol/L Carbon Dioxide 25 (21-33) mmol/L Anion Gap 15 (10-20) BUN 11 (7-21) mg/dL Creatinine 0.6 L (0.8-1.5) mg/dL Est GFR ( Amer) > 60 Est GFR (Non-Af Amer) > 60 POC Glucose (mg/dL) (65-110) mg/dL Random Glucose 93 (70-110) mg/dL Calcium 8.9 (8.4-10.5) mg/dL Phosphorus (2.5-4.5) mg/dL Magnesium (1.7-2.2) mg/dL Total Bilirubin 1.4 H (0.2-1.3) mg/dL AST 108 H (17-59) U/L ALT 116 H (7-56) U/L Alkaline Phosphatase 114 (38-126) U/L Total Protein 7.3 (5.8-8.3) g/dL Albumin 3.5 (3.0-4.8) g/dL Globulin 3.8 gm/dL Albumin/Globulin Ratio 0.9 L (1.1-1.8) Arterial Blood Potassium 3.8 (3.6-5.2) mmol/L Phenytoin (10-20) ug/mL 03/24/17 03/23/17 Range/Units 00:24 19:02 WBC (4.5-11.0) 10^3/ul RBC (3.5-6.1) 10^6/uL Hgb (14.0-18.0) g/dL Hct (42.0-52.0) % MCV (80.0-105.0) fl MCH (25.0-35.0) pg MCHC (31.0-37.0) g/dl RDW (11.5-14.5) % Plt Count (120.0-450.0) 10^3/uL MPV (7.0-11.0) fl pCO2 (35-45) mm/Hg pO2 (80-100) mm/Hg HCO3 (21-28) mmol/L ABG pH (7.35-7.45) ABG Total CO2 (22-28) mmol.L ABG O2 Saturation (95-98) % ABG Base Excess (-2.0-3.0) mmol/L ABG Potassium (3.6-5.2) mmol/L Sodium (132-148) mmol/L Chloride (98-107) mmol/L Glucose (75-110) mg/dl Lactate (0.7-2.1) mmol/L FiO2 % Potassium (3.6-5.0) mmol/L Carbon Dioxide (21-33) mmol/L Anion Gap (10-20) BUN (7-21) mg/dL Creatinine (0.8-1.5) mg/dL Est GFR ( Amer) Est GFR (Non-Af Amer) POC Glucose (mg/dL) 87 83 (65-110) mg/dL Random Glucose (70-110) mg/dL Calcium (8.4-10.5) mg/dL Phosphorus (2.5-4.5) mg/dL Magnesium (1.7-2.2) mg/dL Total Bilirubin (0.2-1.3) mg/dL AST (17-59) U/L ALT (7-56) U/L Alkaline Phosphatase (38-126) U/L Total Protein (5.8-8.3) g/dL Albumin (3.0-4.8) g/dL Globulin gm/dL Albumin/Globulin Ratio (1.1-1.8) Arterial Blood Potassium (3.6-5.2) mmol/L Phenytoin (10-20) ug/mL Laboratory Results - last 24 hr 03/23/17 03/24/17 03/24/17 19:02 00:24 05:10 WBC RBC Hgb Hct MCV MCH MCHC RDW Plt Count MPV pCO2 32 L pO2 129.0 H HCO3 23.8 ABG pH 7.48 H ABG Total CO2 24.8 ABG O2 Saturation 99.2 H ABG Base Excess 0.9 ABG Potassium 3.8 Sodium 139.0 Chloride 108.0 H Glucose 93 Lactate 0.7 FiO2 40.0 Potassium Carbon Dioxide Anion Gap BUN Creatinine Est GFR ( Amer) Est GFR (Non-Af Amer) POC Glucose (mg/dL) 83 87 Random Glucose Calcium Phosphorus Magnesium Total Bilirubin AST ALT Alkaline Phosphatase Total Protein Albumin Globulin Albumin/Globulin Ratio Arterial Blood Potassium 3.8 Phenytoin 03/24/17 03/24/17 03/24/17 05:20 05:20 05:20 WBC 12.5 H RBC 3.20 L Hgb 9.2 L Hct 28.0 L MCV 87.5 MCH 28.8 MCHC 32.9 RDW 13.9 Plt Count 287 MPV 10.1 pCO2 pO2 HCO3 ABG pH ABG Total CO2 ABG O2 Saturation ABG Base Excess ABG Potassium Sodium 140 Chloride 104 Glucose Lactate FiO2 Potassium 3.9 Carbon Dioxide 25 Anion Gap 15 BUN 11 Creatinine 0.6 L Est GFR ( Amer) > 60 Est GFR (Non-Af Amer) > 60 POC Glucose (mg/dL) Random Glucose 93 Calcium 8.9 Phosphorus 3.6 Magnesium 1.5 L Total Bilirubin 1.4 H AST 108 H ALT 116 H Alkaline Phosphatase 114 Total Protein 7.3 Albumin 3.5 Globulin 3.8 Albumin/Globulin Ratio 0.9 L Arterial Blood Potassium Phenytoin 03/24/17 03/24/17 06:43 13:45 WBC RBC Hgb Hct MCV MCH MCHC RDW Plt Count MPV pCO2 pO2 HCO3 ABG pH ABG Total CO2 ABG O2 Saturation ABG Base Excess ABG Potassium Sodium Chloride Glucose Lactate FiO2 Potassium Carbon Dioxide Anion Gap BUN Creatinine Est GFR ( Amer) Est GFR (Non-Af Amer) POC Glucose (mg/dL) 95 Random Glucose Calcium Phosphorus Magnesium Total Bilirubin AST ALT Alkaline Phosphatase Total Protein Albumin Globulin Albumin/Globulin Ratio Arterial Blood Potassium Phenytoin < 3 L Critical Care Progress Note - Nutrition Nutrition: Nutrition Category Date Time Status NPO Diet [DIET] Diets 03/14/17 Breakfast Ordered Attending/Attestation - Attestation I have personally seen and examined this patient.: Yes I have fully participated in the care of the patient.: Yes I have reviewed all pertinent clinical information: Yes Notes (Text): 03/24/17 17:20 36 y/o M s/p Cardiac arrest w/ anoxic injury seen on imaging. Continuous Seizure activity on Keppra, Dilantin and Valproic acid. Sedated on Propofol, Versed and Fentanyl. EEg shows burst w/ spikes. Neurology following the patient. Dilantin level, keppra level sent. Will adjust dosing Tachycardia possible from seizure states. Will Check Venous dopplers . On empiric abx for elevated WBC, finished multiple courses of abx x 6 days. cx negative. dvt p ppi Poor prognosis CC time 55 min No accepting hospital for EEg monitoring.
[2017-03-24] MEDS: levETIRAcetam 1,000 MG in Sodium Chloride 0.9% 100 ML IV SCH (10:46)
[2017-03-24] MEDS: Chlorhexidine 0.12% Oral Sol 480 ml Bot PO SCH ×2 (10:47→18:01)
--- NOTE | 2017-03-24 11:29 | CP.PCM.PN ---
<Zac Archer - Last Filed: 03/24/17 15:02> Subjective - Date & Time of Evaluation Date of Evaluation: 03/24/17 Time of Evaluation: 09:27 - Subjective Subjective: Patient seen and examined at bedside. Per nursing team the patient has new onset of fever at 102.3. ROS unobtainable due to current clinical condition. Objective - Vital Signs/Intake and Output Vital Signs (last 24 hours): Temp Pulse Resp BP Pulse Ox 102.3 F H 130 H 18 113/72 66 L 03/24/17 04:00 03/24/17 06:30 03/24/17 07:36 03/24/17 06:00 03/24/17 07:36 Intake and Output: 03/24/17 03/24/17 06:59 18:59 Intake Total 3807 100 Output Total 1450 Balance 2357 100 - Medications Medications: Current Medications Acetaminophen (Tylenol 325 Mg Supp) 325 mg RC Q4H PRN PRN Reason: Fever >100.4 F Last Admin: 03/22/17 21:00 Dose: 325 mg Albuterol/Ipratropium (Duoneb 3 Mg/0.5 Mg (3 Ml) Ud) 3 ml IH Q2H PRN PRN Reason: Shortness of Breath Last Admin: 03/13/17 15:45 Dose: 3 ml Albuterol/Ipratropium (Duoneb 3 Mg/0.5 Mg (3 Ml) Ud) 3 ml IH [id number] [facility] Last Admin: 03/24/17 07:36 Dose: 3 ml Chlorhexidine Gluconate (Peridex) 15 ml PO BID [facility] Last Admin: 03/24/17 10:47 Dose: 15 ml Propofol (Diprivan) 1,000 mg in 100 mls @ 3.674 mls/hr IV .Q24H PRN; Protocol; 5 MCG/KG/MIN PRN Reason: TITRATE PER MD ORDER Last Admin: 03/24/17 02:27 Dose: 50 mcg/kg/min, 36.741 mls/hr Levetiracetam 1,000 mg/ Sodium (Chloride) 110 mls @ 460 mls/hr IV Q12 [facility] Last Admin: 03/24/17 10:46 Dose: 460 mls/hr Potassium Chloride 40 meq/ (Sodium Chloride) 1,020 mls @ 100 mls/hr IV .[id number] [facility] Last Admin: 03/24/17 01:57 Dose: 100 mls/hr Phenytoin 100 mg/ Sodium (Chloride) 52 mls @ 104 mls/hr IVPB TID [facility] Last Admin: 03/24/17 10:46 Dose: 104 mls/hr Metronidazole (Flagyl) 500 mg in 100 mls @ 100 mls/hr IVPB Q8 [facility] PRN Reason: Protocol Stop: 03/28/17 14:01 Last Admin: 03/24/17 06:05 Dose: 100 mls/hr Valproate Sodium 500 mg/ (Sodium Chloride) 105 mls @ 100 mls/hr IVPB Q8 [facility] Last Admin: 03/24/17 06:06 Dose: 100 mls/hr Fentanyl Citrate (Fentanyl Citrate/Sodium Chloride 1 Mg/100 Ml) 1,000 mcg in 100 mls @ 2 mls/hr IV .Q24H PRN; Protocol; 20 MCG/HR PRN Reason: TITRATE PER MD ORDER Last Admin: 03/24/17 09:21 Dose: 200 mcg/hr, 20 mls/hr Midazolam 100 mg/100ml in NS (Midazolam 100 Mg/100ml In Ns) 100 mg in 100 mls @ 20 mls/hr IV .Q5H PRN; Protocol; 20 MG/HR PRN Reason: Sedation Last Admin: 03/24/17 03:39 Dose: 30 mg/hr, 30 mls/hr Acetaminophen (Ofirmev) 1,000 mg in 100 mls @ 400 mls/hr IVPB Q6H PRN PRN Reason: Temperature > 100.4F Stop: 03/25/17 08:33 Last Admin: 03/24/17 04:37 Dose: 400 mls/hr Vancomycin HCl (Vancomycin 1gm) 1 gm in 250 mls @ 167 mls/hr IVPB Q12H [facility] PRN Reason: Protocol Last Admin: 03/24/17 08:47 Dose: 167 mls/hr Metoprolol Tartrate (Lopressor) 5 mg IVP Q4 PRN PRN Reason: sbp>160 or HR > 130 BPM Last Admin: 03/24/17 03:52 Dose: 5 mg Pantoprazole Sodium (Protonix Inj) 40 mg IVP Q12 [facility] Last Admin: 03/24/17 10:48 Dose: 40 mg - Labs Labs: 03/24/17 05:20 03/24/17 05:20 PT 11.9 Seconds (9.9-11.8) H 03/22/17 05:30 INR 1.10 (0.93-1.08) H 03/22/17 05:30 APTT 24.9 Seconds (23.7-30.8) 03/22/17 05:30 - Head Exam Head Exam: ATRAUMATIC, NORMAL INSPECTION, NORMOCEPHALIC - Eye Exam Eye Exam: PERRL. absent: Nystagmus, Periorbital tenderness, Scleral icterus Pupil Exam: PERRL. absent: Unequal - ENT Exam ENT Exam: Mucous Membranes Moist, Normal Exam. absent: Normal Oropharynx, TM's Normal Bilaterally - Neck Exam Neck Exam: Normal Inspection. absent: Lymphadenopathy, Meningismus - Respiratory Exam Respiratory Exam: Rhonchi, NORMAL BREATHING PATTERN. absent: Clear to Ausculation Bilateral, Prolonged Expiratory Phase, Rales, Stridor - Cardiovascular Exam Cardiovascular Exam: REGULAR RHYTHM, +S1, +S2. absent: Gallop, Rubs - GI/Abdominal Exam GI & Abdominal Exam: Soft, Normal Bowel Sounds. absent: Tenderness, Hyperactive Bowel Sounds - Extremities Exam Extremities Exam: Normal Inspection. absent: Full ROM - Neurological Exam Neurological Exam: Altered. absent: Alert, Awake, Normal Gait - Skin Skin Exam: Dry, Intact Assessment and Plan - Assessment and Plan (Free Text) Assessment: 36 y/o male with PMH of substance abuse presents with drug overdose, with multiple substances (+BZDs, barbiturate, Opiates), s/p ROSC after cardiac arrest x 3, unknown initial downtime at home. Tracheostomy and G-tube placement not placed Wednesday by surgery due to hypernatremia. Pt will be rescheduled for Wednesday. Pt also started on d5W and free water via the NGT. Antibiotics will also be stopped at tihs time. Patient began running a fever and Vancomycin added to Flagyl. Prognosis discussed with family, who are still hopeful patient will have a meaningful recovery. Plan: Neuro: -Patient intubated and unresponsive on sedative medication -Continue to Maintain temp ~92-94F -Neurochecks q2h -Urine toxicology positive for opiates, barbiturates and benzos -CT Head (-). Seen by Neurology. -Repeat EEG demonstrates anoxic brain injury and poor prognosis. -Brain MRI showed anoxic injury in thalamic region bilaterally. -Will continue to attempt weaning trials -Continue Seizure precautions -Neuro status hard to determine due to sedation. Will reassess once sedation is weaned off. -Overnight patient had two seizures again. Continue Fentanyl 200mcg/hr. Will continue to monitor. -Patient scheduled tracheostomy and gastrostomy tentatively scheduled for sometime this week. Will f/u with Surgery team. -Family agreeable to LTACH. Awaiting approval. Cardio: -Continue propofol and Midozalam with goal MAP > 70 -EKG reviewed; atrial fibrillation with slow ventricular response (51bpm), nonspecific intraventricular block -F/U with Cardiology recs. Pulm: -Failed CPAP trial, will remain on full ventilatory support. Patient Tracheostomy expected to happen this week. -ABG and CXR reviewed -patient pO2 stable. Patient's FiO2 remains at 40%. Will monitor closely. -Continue serial CXR and ABG. GI: -NPO -NGT -Protonix Renal: -Hypernatremic resolved. Will continue to monitor closely. -Hypokalemia (3.7 today) Resolved. Will replete as needed. -Magnesium 1.5. Patient getting repleted now. -Will continue to monitor and treat electrolyte abnormalities as indicated -Monitor I's and O's Endo: -Fingersticks q2h -Maintain euglycemia between 140-180's -Stress dose steroids, tapering ID: -Patient had a fever overnight of 102.3. Cooling blanket applied. -Current temperature 102.3. Blood cx, urine ux, sputum cx, and u/a ordered. Will f/u with results. Continue Tylenol as needed.Continue Metronidazole and Vancomycin. -Sputum culture grew Yeast species. Will f/u with repeat cultures. GI/DVT Prophylaxis -Protonix/SCD's <Miguel Carlos - Last Filed: 03/25/17 14:21> Objective - Vital Signs/Intake and Output Vital Signs (last 24 hours): Temp Pulse Resp BP Pulse Ox 100.9 F H 133 H 21 153/57 H 100 03/25/17 08:00 03/25/17 14:09 03/25/17 11:17 03/25/17 14:09 03/25/17 11:10 Intake and Output: 03/25/17 03/25/17 06:59 18:59 Intake Total 2707 100 Output Total 1900 Balance 807 100 - Medications Medications: Current Medications Acetaminophen (Tylenol 325 Mg Supp) 325 mg RC Q4H PRN PRN Reason: Fever >100.4 F Last Admin: 03/22/17 21:00 Dose: 325 mg Albuterol/Ipratropium (Duoneb 3 Mg/0.5 Mg (3 Ml) Ud) 3 ml IH Q2H PRN PRN Reason: Shortness of Breath Last Admin: 03/13/17 15:45 Dose: 3 ml Albuterol/Ipratropium (Duoneb 3 Mg/0.5 Mg (3 Ml) Ud) 3 ml IH [id number] [facility] Last Admin: 03/25/17 13:56 Dose: 3 ml Chlorhexidine Gluconate (Peridex) 15 ml PO BID [facility] Last Admin: 03/25/17 09:35 Dose: 15 ml Propofol (Diprivan) 1,000 mg in 100 mls @ 3.674 mls/hr IV .Q24H PRN; Protocol; 5 MCG/KG/MIN PRN Reason: TITRATE PER MD ORDER Last Titration: 03/25/17 13:54 Dose: 50 mcg/kg/min, 36.741 mls/hr Potassium Chloride 40 meq/ (Sodium Chloride) 1,020 mls @ 100 mls/hr IV .[id number] [facility] Last Admin: 03/25/17 07:08 Dose: 100 mls/hr Phenytoin 100 mg/ Sodium (Chloride) 52 mls @ 104 mls/hr IVPB TID [facility] Last Admin: 03/25/17 09:34 Dose: 104 mls/hr Metronidazole (Flagyl) 500 mg in 100 mls @ 100 mls/hr IVPB Q8 [facility] PRN Reason: Protocol Stop: 03/28/17 14:01 Last Admin: 03/25/17 05:14 Dose: 100 mls/hr Valproate Sodium 500 mg/ (Sodium Chloride) 105 mls @ 100 mls/hr IVPB Q8 [facility] Last Admin: 03/25/17 05:14 Dose: 100 mls/hr Fentanyl Citrate (Fentanyl Citrate/Sodium Chloride 1 Mg/100 Ml) 1,000 mcg in 100 mls @ 2 mls/hr IV .Q24H PRN; Protocol; 20 MCG/HR PRN Reason: TITRATE PER MD ORDER Last Titration: 03/25/17 13:57 Dose: 2,000 mcg/hr, 200 mls/hr Midazolam 100 mg/100ml in NS (Midazolam 100 Mg/100ml In Ns) 100 mg in 100 mls @ 20 mls/hr IV .Q5H PRN; Protocol; 20 MG/HR PRN Reason: Sedation Last Titration: 03/25/17 13:56 Dose: 50 mg/hr, 50 mls/hr Vancomycin HCl (Vancomycin 1gm) 1 gm in 250 mls @ 167 mls/hr IVPB Q12H [facility] PRN Reason: Protocol Last Admin: 03/24/17 21:24 Dose: 167 mls/hr Levetiracetam 1,500 mg/ Sodium (Chloride) 115 mls @ 460 mls/hr IV Q12 [facility] Last Admin: 03/25/17 09:34 Dose: 460 mls/hr Metoprolol Tartrate (Lopressor) 5 mg IVP Q4 PRN PRN Reason: sbp>160 or HR > 130 BPM Last Admin: 03/25/17 14:09 Dose: 5 mg Metoprolol Tartrate (Lopressor) 12.5 mg PO BID [facility] Last Admin: 03/25/17 09:37 Dose: 12.5 mg Pantoprazole Sodium (Protonix Inj) 40 mg IVP Q12 [facility] Last Admin: 03/25/17 09:37 Dose: 40 mg - Labs Labs: 03/25/17 05:20 03/25/17 05:20 PT 11.9 Seconds (9.9-11.8) H 03/22/17 05:30 INR 1.10 (0.93-1.08) H 03/22/17 05:30 APTT 24.9 Seconds (23.7-30.8) 03/22/17 05:30 Attending/Attestation - Attestation I have personally seen and examined this patient.: Yes I have fully participated in the care of the patient.: Yes I have reviewed all pertinent clinical information, including history, physical exam and plan: Yes Notes (Text): 03/25/17 14:14 Patient was seen and examined with phlebotomist medical lab assistant.Family is at bed side. 36 y/o M w/ prolonged intubation following cardiac arrest x 2, ARDS and septic shock. Patient is febrile today, the etiology of fever is unclear, could be Pneumonia as X rays chest showed left lower atelectasis, already on IV Vancomycin and Flagyl as per ID. We will follow up cultures.Fever could be due to seizure/ central fever. Patient is having multiple seizure Status epilepticus ?sedated on Propofol, Fentanyl and Versed. Keppra ,He is also on Dilantin and Valproic acid Patient family is agreeable for PEG tube placement now, Patient is scheduled for surgery on . Acute renal failure has improved, making lot of urine, could have underlying DI Prognosis is guarded. Management plan was discussed in detail with patient Education was provided. 03/25/17 14:20
--- NOTE | 2017-03-24 18:10 | CP.PCM.PN ---
Subjective - Date & Time of Evaluation Date of Evaluation: 03/24/17 Time of Evaluation: 11:30 - Subjective Subjective: Patient is for trach and PEG today; still spiking fevers; Objective - Vital Signs/Intake and Output Vital Signs (last 24 hours): Temp Pulse Resp BP Pulse Ox 102.3 F H 120 H 18 112/57 L 66 L 03/24/17 04:00 03/24/17 18:00 03/24/17 07:36 03/24/17 18:00 03/24/17 07:36 Intake and Output: 03/24/17 03/24/17 06:59 18:59 Intake Total 3907 300 Output Total 1450 Balance 2457 300 - Medications Medications: Current Medications Acetaminophen (Tylenol 325 Mg Supp) 325 mg RC Q4H PRN PRN Reason: Fever >100.4 F Last Admin: 03/22/17 21:00 Dose: 325 mg Albuterol/Ipratropium (Duoneb 3 Mg/0.5 Mg (3 Ml) Ud) 3 ml IH Q2H PRN PRN Reason: Shortness of Breath Last Admin: 03/13/17 15:45 Dose: 3 ml Albuterol/Ipratropium (Duoneb 3 Mg/0.5 Mg (3 Ml) Ud) 3 ml IH [id number] [facility] Last Admin: 03/24/17 13:25 Dose: 3 ml Chlorhexidine Gluconate (Peridex) 15 ml PO BID [facility] Last Admin: 03/24/17 18:01 Dose: 15 ml Propofol (Diprivan) 1,000 mg in 100 mls @ 3.674 mls/hr IV .Q24H PRN; Protocol; 5 MCG/KG/MIN PRN Reason: TITRATE PER MD ORDER Last Admin: 03/24/17 02:27 Dose: 50 mcg/kg/min, 36.741 mls/hr Potassium Chloride 40 meq/ (Sodium Chloride) 1,020 mls @ 100 mls/hr IV .[id number] [facility] Last Admin: 03/24/17 01:57 Dose: 100 mls/hr Phenytoin 100 mg/ Sodium (Chloride) 52 mls @ 104 mls/hr IVPB TID [facility] Last Admin: 03/24/17 13:48 Dose: 104 mls/hr Metronidazole (Flagyl) 500 mg in 100 mls @ 100 mls/hr IVPB Q8 [facility] PRN Reason: Protocol Stop: 03/28/17 14:01 Last Admin: 03/24/17 13:49 Dose: 100 mls/hr Valproate Sodium 500 mg/ (Sodium Chloride) 105 mls @ 100 mls/hr IVPB Q8 [facility] Last Admin: 03/24/17 13:48 Dose: 100 mls/hr Fentanyl Citrate (Fentanyl Citrate/Sodium Chloride 1 Mg/100 Ml) 1,000 mcg in 100 mls @ 2 mls/hr IV .Q24H PRN; Protocol; 20 MCG/HR PRN Reason: TITRATE PER MD ORDER Last Admin: 03/24/17 14:28 Dose: 200 mcg/hr, 20 mls/hr Midazolam 100 mg/100ml in NS (Midazolam 100 Mg/100ml In Ns) 100 mg in 100 mls @ 20 mls/hr IV .Q5H PRN; Protocol; 20 MG/HR PRN Reason: Sedation Last Admin: 03/24/17 17:53 Dose: 30 mg/hr, 30 mls/hr Acetaminophen (Ofirmev) 1,000 mg in 100 mls @ 400 mls/hr IVPB Q6H PRN PRN Reason: Temperature > 100.4F Stop: 03/25/17 08:33 Last Admin: 03/24/17 04:37 Dose: 400 mls/hr Vancomycin HCl (Vancomycin 1gm) 1 gm in 250 mls @ 167 mls/hr IVPB Q12H [facility] PRN Reason: Protocol Last Admin: 03/24/17 08:47 Dose: 167 mls/hr Levetiracetam 1,500 mg/ Sodium (Chloride) 115 mls @ 460 mls/hr IV Q12 [facility] Metoprolol Tartrate (Lopressor) 5 mg IVP Q4 PRN PRN Reason: sbp>160 or HR > 130 BPM Last Admin: 03/24/17 03:52 Dose: 5 mg Metoprolol Tartrate (Lopressor) 12.5 mg PO BID [facility] Last Admin: 03/24/17 18:00 Dose: 12.5 mg Pantoprazole Sodium (Protonix Inj) 40 mg IVP Q12 [facility] Last Admin: 03/24/17 10:48 Dose: 40 mg - Labs Labs: 03/24/17 05:20 03/24/17 05:20 PT 11.9 Seconds (9.9-11.8) H 03/22/17 05:30 INR 1.10 (0.93-1.08) H 03/22/17 05:30 APTT 24.9 Seconds (23.7-30.8) 03/22/17 05:30 - Constitutional Appears: Non-toxic, No Acute Distress - Head Exam Head Exam: NORMAL INSPECTION - Eye Exam Eye Exam: absent: Scleral icterus - ENT Exam ENT Exam: Mucous Membranes Moist - Respiratory Exam Respiratory Exam: Clear to Ausculation Bilateral. absent: Rales, Rhonchi, Wheezes - Cardiovascular Exam Cardiovascular Exam: RRR, +S1, +S2 - GI/Abdominal Exam GI & Abdominal Exam: Soft. absent: Distended - Extremities Exam Additional comments: no leg edema; - Neurological Exam Neurological Exam: absent: Alert, Awake - Skin Skin Exam: Warm. absent: Cyanosis Assessment and Plan (1) Acute renal failure Assessment & Plan: ATN, resolved; still polyuric but in the setting of large IVF load from meds; otherwise, hypernatremia relatively stable off D5W; holding 1/2NS today also; will re-assess tomorrow after intaked minimized further; Status: Acute (2) ARDS (adult respiratory distress syndrome) Status: Acute (3) Polyuria Status: Acute (4) Electrolyte imbalance Status: Acute
[2017-03-24] MEDS: levETIRAcetam 1,500 MG in Sodium Chloride 0.9% 100 ML IV SCH (21:56)
[2017-03-25] MEDS: Propofol 10 mg/ml 1,000 MG/100 ML VIAL IV PRN ×7 (00:03→23:07)
[2017-03-25] MEDS: Midazolam 100 mg/100ml in NS 100 MG/100 ML SOL IV PRN ×7 (00:13→22:45)
[2017-03-25] MEDS: Fentanyl 1000mcg/100ml NS 1,000 MCG/100 ML BAG IV PRN ×2 (00:46→06:23)
[2017-03-25] MEDS: Albuterol-Ipratrop 3 mg / 0.5 (3 ml) UD IH SCH ×4 (01:31→20:46)
[2017-03-25] MEDS: Valproate 500 MG in Sodium Chloride 0.9% 100 ML IVPB SCH ×3 (05:14→22:23)
[2017-03-25] MEDS: metroNIDAZOLE IV 500 mg/100 ml 500 MG/100 ML BAG IVPB SCH ×3 (05:14→21:12)
[2017-03-25 06:04] LABS: ARTERIAL BLOOD GAS HCO3 24.7 mmol/L (21-28); ARTERIAL BLOOD GAS PH 7.41 (7.35-7.45)
[2017-03-25 06:18] LABS: HEMATOCRIT 30.6 % (42.0-52.0); MEAN CELL VOLUME 89.2 fl (80.0-105.0); MEAN CORPUSCULAR HEMOGLOBIN 28.9 pg (25.0-35.0); MEAN CORPUSCULAR HGB CONC 32.4 g/dl (31.0-37.0); MEAN PLATELET VOLUME 10.1 fl (7.0-11.0); RED CELL DISTRIBUTION WIDTH 13.8 % (11.5-14.5); WHITE BLOOD COUNT 12.9 10^3/ul (4.5-11.0)
[2017-03-25 06:25] LABS: ALB/GLOB RATIO 0.9 (1.1-1.8); ALKALINE PHOSPHATASE 125 U/L (38-126); ALT/SGPT 81 U/L (7-56); AST/SGOT 83 U/L (17-59); BILIRUBIN,TOTAL 1.5 mg/dL (0.2-1.3); BLOOD UREA NITROGEN 10 mg/dL (7-21); CALCIUM 9.2 mg/dL (8.4-10.5); CARBON DIOXIDE 27 mmol/L (21-33); CHLORIDE 103 mmol/L (95-110); GFR AFRICAN-AMERICAN > 60; GLUCOSE,RANDOM 81 mg/dL (70-110); MAGNESIUM 1.3 mg/dL (1.7-2.2); PHOSPHOROUS 4.4 mg/dL (2.5-4.5); POTASSIUM 4.3 mmol/L (3.6-5.0); SODIUM 142 mmol/L (132-148); TOTAL PROTEIN 7.7 g/dL (5.8-8.3)
--- NOTE | 2017-03-25 06:26 | CP.CCUPN ---
<Jerman Kilgore - Last Filed: 03/25/17 13:19> CCU Subjective - Physician Review Subjective (Free Text): 03/25/17 06:23 Patient seen and examined at bedside in the ICU. Due to persistent seizure episodes despite sedation and seizure ppx, the patient is now on Propofol/Versed /Fentanyl for sedation, and Keppra/Phenytoin/Valproic Acid for seizure ppx. No further coffee-ground emesis episodes reported; more seizures reported overnight. Remains intubated, sedated. Attempting to arrange transfer to center for 24-hour EEG monitoring and possible barbiturate coma; so far refused at [facility] and [facility], unable to reach [facility]. Still pending Trach/G-tube, today as per Surgery. CCU Objective - Vital Signs / Intake & Output Vital Signs (Last 4 hours): Vital Signs Pulse Resp BP Pulse Ox 03/25/17 06:10 141 H 100 03/25/17 06:00 142 H 146/100 H 100 03/25/17 05:50 129 H 100 03/25/17 05:40 118 H 32 H 100 03/25/17 05:30 100 03/25/17 05:20 122 H 100 03/25/17 05:10 133 H 100 03/25/17 05:00 121 H 133/68 100 03/25/17 04:50 119 H 100 03/25/17 04:40 117 H 100 03/25/17 04:30 124 H 100 03/25/17 04:20 118 H 100 03/25/17 04:10 122 H 100 03/25/17 04:00 124 H 116/61 100 03/25/17 03:50 126 H 100 03/25/17 03:40 121 H 100 03/25/17 03:30 125 H 100 03/25/17 03:20 124 H 100 03/25/17 03:10 123 H 100 03/25/17 03:00 124 H 124/73 100 03/25/17 02:50 127 H 100 03/25/17 02:40 118 H 100 03/25/17 02:30 127 H 100 Intake and Output (Last 8hrs): Intake & Output 03/24/17 03/24/17 03/25/17 14:59 22:59 06:59 Intake Total 200 1500 600 Output Total 3150 Balance 200 -1650 600 Intake: IV 200 1500 600 Left Hand 1200 Output: Urine 3150 Urethral (Armenta) 3150 - Physical Exam Head: Positive for: Atraumatic, Normocephalic. Negative for: Ecchymosis, Abrasion, Laceration Pupils: Positive for: Non-Reactive, Pinpoint. Negative for: PERRL Extroacular Muscles: Positive for: Other (unable to assess due to not following commands, not moving eyes spontaneously, no avoidance of direct light challenge for PERRL assessment; decreased intermittent fluttering of eyelids, eyes remain gazing downward, No doll eyes). Negative for: EOMI Conjunctiva: Negative for: Injected, Icteric Mouth: Positive for: Moist Mucous Membranes, Other (ETT in place with bite guard ). Negative for: Drooling Nose (External): Positive for: Atraumatic, Other (NGT in place, no more coffee- ground colored drainage noted). Negative for: Abrasion, Contusion, Laceration Neck: Positive for: Trachea Midline. Negative for: JVD, Lymphadenopathy Respiratory/Chest: Positive for: Clear to Auscultation, Good Air Exchange, Rales (mild-moderate rales in all breath [place], unchanged). Negative for: Accessory Muscle Use, Wheezes, Tachypneic Cardiovascular: Positive for: Normal S1, S2, Tachycardic. Negative for: Murmurs , Irregular Rhythm Abdomen: Negative for: Distention (obese but not distended, soft on palpation, no palpable masses or pulsatile masses), Normal Bowel Sounds (diminished but present bowel sounds, unchanged from multiple prior exams), Mass/Organomegaly Upper Extremity: Positive for: Normal Inspection. Negative for: Cyanosis, Edema , Normal ROM, NORMAL PULSES (faintly palpable radials +1), Swelling, Erythema, Deformity Lower Extremity: Positive for: Normal Inspection. Negative for: Edema, NORMAL PULSES (unable to palpate bilateral dorsalis pedis or posterior tibials), Cyanosis, Swelling, Erythema, Deformity Neurological: Positive for: Other (intubated and sedated, now off paralytics for ~12 hrs). Negative for: GCS=15 (GCS 3 (E1 V1t M1)), CN II-XII Intact, Speech Normal, Motor Func Grossly Intact Skin: Positive for: Warm, Dry, Normal Color. Negative for: Rashes Psychiatric: Positive for: Other (sedated and intubated, unable to assess). Negative for: Alert, Oriented x 3, Normal Insight, Normal Concentration, Normal Affect, Normal Mood - Medications Active Medications: Active Medications Generic Name Dose Route Start Last Admin Trade Name Freq PRN Reason Stop Dose Admin Acetaminophen 325 mg 03/22/17 20:47 03/22/17 21:00 Tylenol 325 Mg Supp RC 325 mg Q4H PRN Administration Fever >100.4 F Albuterol/Ipratropium 3 ml 03/13/17 15:07 03/13/17 15:45 Duoneb 3 Mg/0.5 Mg (3 Ml) Ud IH 3 ml Q2H PRN Administration Shortness of Breath Albuterol/Ipratropium 3 ml 03/13/17 20:00 03/25/17 01:31 Duoneb 3 Mg/0.5 Mg (3 Ml) Ud IH 3 ml [id number] MARICHUY Administration Chlorhexidine Gluconate 15 ml 03/13/17 10:00 03/24/17 18:01 Peridex PO 15 ml BID MARICHUY Administration Propofol 1,000 mg in 100 mls @ 3.674 mls/hr 03/12/17 07:41 03/25/17 04:54 Diprivan IV 50 mcg/kg/min .Q24H PRN 36.741 mls/hr TITRATE PER MD ORDER Administration Protocol 5 MCG/KG/MIN Potassium Chloride 40 meq/ 1,020 mls @ 100 mls/hr 03/17/17 21:40 03/24/17 01: 57 Sodium Chloride IV 100 mls/hr .[id number] MARICHUY Administration Phenytoin 100 mg/ Sodium 52 mls @ 104 mls/hr 03/18/17 10:00 03/24/17 19:13 Chloride IVPB 104 mls/hr TID MARICHUY Administration Metronidazole 500 mg in 100 mls @ 100 mls/hr 03/20/17 14:00 03/25/17 05:14 Flagyl IVPB 03/28/17 14:01 100 mls/hr Q8 MARICHUY Administration Protocol Valproate Sodium 500 mg/ 105 mls @ 100 mls/hr 03/21/17 14:00 03/25/17 05:14 Sodium Chloride IVPB 100 mls/hr Q8 MARICHUY Administration Fentanyl Citrate 1,000 mcg in 100 mls @ 2 mls/hr 03/21/17 15:18 03/25/17 00: 46 Fentanyl Citrate/Sodium Chloride 1 Mg/100 Ml IV 200 mcg/hr .Q24H PRN 20 mls/hr TITRATE PER MD ORDER Administration Protocol 20 MCG/HR Midazolam 100 mg/100ml in NS 100 mg in 100 mls @ 20 mls/hr 03/21/17 17:30 03:29 Midazolam 100 Mg/100ml In Ns IV 30 mg/hr .Q5H PRN 30 mls/hr Sedation Administration Protocol 20 MG/HR Acetaminophen 1,000 mg in 100 mls @ 400 mls/hr 03/23/17 08:32 03/24/17 04:37 Ofirmev IVPB 03/25/17 08:33 400 mls/hr Q6H PRN Administration Temperature > 100.4F Vancomycin HCl 1 gm in 250 mls @ 167 mls/hr 03/23/17 09:45 03/24/17 21:24 Vancomycin 1gm IVPB 167 mls/hr Q12H MARICHUY Administration Protocol Levetiracetam 1,500 mg/ Sodium 115 mls @ 460 mls/hr 03/24/17 15:20 03/24/17 21:56 Chloride IV 460 mls/hr Q12 MARICHUY Administration Metoprolol Tartrate 5 mg 03/21/17 16:38 03/24/17 03:52 Lopressor IVP 5 mg Q4 PRN Administration sbp>160 or HR > 130 BPM Metoprolol Tartrate 12.5 mg 03/24/17 13:15 03/24/17 18:00 Lopressor PO 12.5 mg BID MARICHUY Administration Pantoprazole Sodium 40 mg 03/20/17 22:00 03/24/17 21:17 Protonix Inj IVP 40 mg Q12 MARICHUY Administration - Patient Studies Lab Studies: Microbiology Studies 03/20/17 13:30 Blood Culture - Preliminary Blood NO GROWTH AFTER 4 DAYS 03/20/17 13:30 Blood Culture - Preliminary Blood NO GROWTH AFTER 4 DAYS 03/23/17 12:00 Blood Culture - Preliminary Blood NO GROWTH AFTER 24 HOURS 03/23/17 10:15 Blood Culture - Preliminary Blood NO GROWTH AFTER 24 HOURS Lab Studies 03/25/17 03/24/17 03/24/17 Range/Units 05:20 13:45 06:43 WBC 12.9 H (4.5-11.0) 10^3/ul RBC 3.43 L (3.5-6.1) 10^6/uL Hgb 9.9 L (14.0-18.0) g/dL Hct 30.6 L (42.0-52.0) % MCV 89.2 (80.0-105.0) fl MCH 28.9 (25.0-35.0) pg MCHC 32.4 (31.0-37.0) g/dl RDW 13.8 (11.5-14.5) % Plt Count 337 (120.0-450.0) 10^3/uL MPV 10.1 (7.0-11.0) fl Sodium (132-148) mmol/L Potassium (3.6-5.0) mmol/L Chloride (95-110) mmol/L Carbon Dioxide (21-33) mmol/L Anion Gap (10-20) BUN (7-21) mg/dL Creatinine (0.8-1.5) mg/dL Est GFR ( Amer) Est GFR (Non-Af Amer) POC Glucose (mg/dL) 95 (65-110) mg/dL Random Glucose (70-110) mg/dL Calcium (8.4-10.5) mg/dL Phosphorus (2.5-4.5) mg/dL Magnesium (1.7-2.2) mg/dL Total Bilirubin (0.2-1.3) mg/dL AST (17-59) U/L ALT (7-56) U/L Alkaline Phosphatase (38-126) U/L Total Protein (5.8-8.3) g/dL Albumin (3.0-4.8) g/dL Globulin gm/dL Albumin/Globulin Ratio (1.1-1.8) Phenytoin < 3 L (10-20) ug/mL 03/24/17 03/24/17 03/24/17 Range/Units 05:20 05:20 05:20 WBC 12.5 H (4.5-11.0) 10^3/ul RBC 3.20 L (3.5-6.1) 10^6/uL Hgb 9.2 L (14.0-18.0) g/dL Hct 28.0 L (42.0-52.0) % MCV 87.5 (80.0-105.0) fl MCH 28.8 (25.0-35.0) pg MCHC 32.9 (31.0-37.0) g/dl RDW 13.9 (11.5-14.5) % Plt Count 287 (120.0-450.0) 10^3/uL MPV 10.1 (7.0-11.0) fl Sodium 140 (132-148) mmol/L Potassium 3.9 (3.6-5.0) mmol/L Chloride 104 (95-110) mmol/L Carbon Dioxide 25 (21-33) mmol/L Anion Gap 15 (10-20) BUN 11 (7-21) mg/dL Creatinine 0.6 L (0.8-1.5) mg/dL Est GFR ( Amer) > 60 Est GFR (Non-Af Amer) > 60 POC Glucose (mg/dL) (65-110) mg/dL Random Glucose 93 (70-110) mg/dL Calcium 8.9 (8.4-10.5) mg/dL Phosphorus 3.6 (2.5-4.5) mg/dL Magnesium 1.5 L (1.7-2.2) mg/dL Total Bilirubin 1.4 H (0.2-1.3) mg/dL AST 108 H (17-59) U/L ALT 116 H (7-56) U/L Alkaline Phosphatase 114 (38-126) U/L Total Protein 7.3 (5.8-8.3) g/dL Albumin 3.5 (3.0-4.8) g/dL Globulin 3.8 gm/dL Albumin/Globulin Ratio 0.9 L (1.1-1.8) Phenytoin (10-20) ug/mL Laboratory Results - last 24 hr 03/24/17 03/24/17 03/24/17 05:20 05:20 05:20 WBC 12.5 H RBC 3.20 L Hgb 9.2 L Hct 28.0 L MCV 87.5 MCH 28.8 MCHC 32.9 RDW 13.9 Plt Count 287 MPV 10.1 Sodium 140 Potassium 3.9 Chloride 104 Carbon Dioxide 25 Anion Gap 15 BUN 11 Creatinine 0.6 L Est GFR ( Amer) > 60 Est GFR (Non-Af Amer) > 60 POC Glucose (mg/dL) Random Glucose 93 Calcium 8.9 Phosphorus 3.6 Magnesium 1.5 L Total Bilirubin 1.4 H AST 108 H ALT 116 H Alkaline Phosphatase 114 Total Protein 7.3 Albumin 3.5 Globulin 3.8 Albumin/Globulin Ratio 0.9 L Phenytoin 03/24/17 03/24/17 03/25/17 06:43 13:45 05:20 WBC 12.9 H RBC 3.43 L Hgb 9.9 L Hct 30.6 L MCV 89.2 MCH 28.9 MCHC 32.4 RDW 13.8 Plt Count 337 MPV 10.1 Sodium Potassium Chloride Carbon Dioxide Anion Gap BUN Creatinine Est GFR ( Amer) Est GFR (Non-Af Amer) POC Glucose (mg/dL) 95 Random Glucose Calcium Phosphorus Magnesium Total Bilirubin AST ALT Alkaline Phosphatase Total Protein Albumin Globulin Albumin/Globulin Ratio Phenytoin < 3 L Fingerstick Blood Sugar Results: 89 Review of Systems - Review of Systems Systems not reviewed;Unavailable: Intubated Critical Care Progress Note - Nutrition Nutrition: Nutrition Category Date Time Status NPO Diet [DIET] Diets 03/14/17 Breakfast Ordered Assessment/Plan - Assessment and Plan (Free Text) Assessment: This is a 36 yo M with past medical history of substance abuse, depression, bipolar disorder, hypertension, anxiety disorder that presented with cardiac arrest in the field (downtime unknown) due to multi-drug overdose, with two further episodes of cardiac arrest on arrival, and witnessed seizure prior to initiation of increased sedation and paralytics. Remains off paralytics, but remains on high doses of sedatives due to multiple witnessed seizures, concerning for likely Status Epilepticus. Will require transfer to center with 24-hour continuous EEG monitoring, so far denied at [facility] and [facility], unable to reach [facility]. Pending Trach/G-tube placement. Overall prognosis is poor. Plan: Neuro: -continuing to seize despite sedation with Propofol/Versed/Fentanyl and seizure ppx with Dilantin/Keppra/Valproic Acid, likely status epilepticus -At this point, next intervention would be barbiturate coma, which requires 24- hour continuous EEG monitoring; [facility] and [facility] have denied for transfer, unable to reach [facility] -Phenytoin level yesterday < 3, given 1g bolus, repeat level today still low at 6, 2nd bolus of 1g ordered, repeat level tomorrow -MRI brain notable for likely anoxic injury in thalamix area bilaterally -Repeat EEG ordered today, pending read -No longer actively cooling, maintain normothermia -Urine toxicology on admission positive for opiates, barbiturates and benzos -Neurology consulted - Dr. Rene, appreciate all recs; poor prognosis given burst suppression pattern on EEG with seizure when weaned from sedation, likely status epilepticus given persisting seizures, needs 24-hour EEG monitoring for Status, which will require a transfer -Poison control following -Pending Trach/G-tube today Pulm: -Satting 95-100%, ABG this AM reviewed, improved pO2 otherwise unchanged, continue to monitor -CXR this AM reviewed, unchanged as compared to yesterday -Currently on PRVC, tolerating pressure support, continue to monitor Cardio: -Off all pressor support >7 days, maintaining MAP > 65 consistently -Tachycardic 100's since x4 days, possibly rebound from precedex d/c vs 2/2 status epilepticus -Troponins increased from <0.01 to 0.13 on admission -most recent EKG 03/13, notable for sinus halina to 48 and prolonged QTc at 537 ( unsurprising in setting of multi-drug abuse) -Cardiology consulted - Dr. Anderson -Echo notable for EF 54%, normal size/wall thickness LV, flattened septum, mild Pulm HTN/TR, mild RV dilation GI: -NPO -NGT in place -GI prophylaxis with protonix -LFTs improving -s/p x3 dosing of Acetadote as per Poison Control, no additional doses ordered -coffee-ground emesis on 03/20, 600cc drainage after NGT set to suction; no free air under the diaphragm or obstruction on Abd CXR; H Pylori antigen test ordered, empiric coverage with Flagyl (day 5 of 8)), Protonix BID Renal: -Cr stable at 0.6, OTONIEL resolved -Hypernatremia resolved, Na today 140 -Will continue to monitor and treat electrolyte abnormalities as indicated; persistently low K requiring chronic repletion -Monitor I's and O's -Nephro following, appreciate all recs Endo: -Fingersticks q4h -Maintain euglycemia between 140-180's ID: -multiple Blood and urine cultures drawn, remain negative -Most recent sputum (03/16) positive for light growth yeast, all other sputum cultures negative -Patient was empirically covered with Cefepime, Levofloxacin, and Vanco; all now d/c; currently on Flagyl (day 5 of 8) for empiric H Pylori coverage -Less febrile overnight, Tmax 100.9F -Ofirmev for fevers, new blood/urine/sputum cx negative at 48hrs Heme: -Hgb 9.9, stool occult negative, iron panel wnl -SCDs for DVT ppx -Coags stable, last INR 1.10 Dispo: ICU, intubated/sedated, s/p EEG with burst-suppression pattern, s/p GI bleed suspected 2/2 ulceration from NGT; likely Status Epilepticus, requires 24- hour EEG monitoring and likely Barbiturate coma, denied transfer to [facility], unable to contact [facility]; prognosis is very poor, Trach/ G-tube today FEN: NPO, NS with KCl 40mEq at 100cc/hr Access: Peripheral IVs Consults: Neuro, Cardio, Nephro, Poison Control, Surgery Ppx: Protonix covers for GI, SCDs for DVT Patient seen, examined, and reviewed with attending, Dr. Bush <Rachelle JONES,[facility] - Last Filed: 03/26/17 15:14> CCU Objective - Vital Signs / Intake & Output Vital Signs (Last 4 hours): Vital Signs Temp Pulse Resp BP Pulse Ox 03/26/17 14:30 106 H 107/51 L 98 03/26/17 14:20 109 H 98 03/26/17 14:10 110 H 98 03/26/17 14:00 115 H 124/57 L 99 03/26/17 13:50 118 H 100 03/26/17 13:40 119 H 99 03/26/17 13:33 124 H 137/67 03/26/17 13:30 121 H 137/67 99 03/26/17 13:20 123 H 100 03/26/17 13:10 124 H 100 03/26/17 13:00 127 H 142/70 100 03/26/17 12:50 127 H 100 03/26/17 12:40 125 H 100 03/26/17 12:30 126 H 129/69 100 03/26/17 12:20 131 H 100 03/26/17 12:10 124 H 100 03/26/17 12:00 100.8 F H 123 H 20 134/61 100 03/26/17 11:50 124 H 100 03/26/17 11:40 127 H 100 03/26/17 11:30 129 H 144/71 100 03/26/17 11:20 128 H 100 Intake and Output (Last 8hrs): Intake & Output 03/26/17 03/26/17 03/26/17 06:59 14:59 22:59 Intake Total 600 1400 Output Total 2200 Balance 600 -800 Intake: IV 600 1400 Left Antecubital 1000 Oral 0 Tube Feeding 0 Output: Gastric Amount 450 Nares 250 Stomach 200 Urine 1750 Urethral (Armenta) 1750 Other: # Bowel Movements 0 - Medications Active Medications: Active Medications Generic Name Dose Route Start Last Admin Trade Name Freq PRN Reason Stop Dose Admin Acetaminophen 325 mg 03/22/17 20:47 03/26/17 08:36 Tylenol 325 Mg Supp RC 325 mg Q4H PRN Administration Fever >100.4 F Albuterol/Ipratropium 3 ml 03/13/17 15:07 03/13/17 15:45 Duoneb 3 Mg/0.5 Mg (3 Ml) Ud IH 3 ml Q2H PRN Administration Shortness of Breath Albuterol/Ipratropium 3 ml 03/13/17 20:00 03/26/17 13:44 Duoneb 3 Mg/0.5 Mg (3 Ml) Ud IH 3 ml [id number] MAR[place]UY Administration Chlorhexidine Gluconate 15 ml 03/13/17 10:00 03/26/17 13:34 Peridex PO 15 ml BID MARICHUY Administration Propofol 1,000 mg in 100 mls @ 3.674 mls/hr 03/12/17 07:41 03/26/17 09:34 Diprivan IV 50 mcg/kg/min .Q24H PRN 36.741 mls/hr TITRATE PER MD ORDER Administration Protocol 5 MCG/KG/MIN Potassium Chloride 40 meq/ 1,020 mls @ 100 mls/hr 03/17/17 21:40 03/25/17 07: 08 Sodium Chloride IV 100 mls/hr .[id number] MARICHUY Administration Phenytoin 100 mg/ Sodium 52 mls @ 104 mls/hr 03/18/17 10:00 03/26/17 12:32 Chloride IVPB 104 mls/hr TID MARICHUY Administration Metronidazole 500 mg in 100 mls @ 100 mls/hr 03/20/17 14:00 03/26/17 06:29 Flagyl IVPB 03/28/17 14:01 100 mls/hr Q8 MARICHUY Administration Protocol Valproate Sodium 500 mg/ 105 mls @ 100 mls/hr 03/21/17 14:00 03/26/17 06:27 Sodium Chloride IVPB 100 mls/hr Q8 MARICHUY Administration Midazolam 100 mg/100ml in NS 100 mg in 100 mls @ 20 mls/hr 03/21/17 17:30 13:14 Midazolam 100 Mg/100ml In Ns IV 50 mg/hr .Q5H PRN 50 mls/hr Sedation Administration Protocol 20 MG/HR Vancomycin HCl 1 gm in 250 mls @ 167 mls/hr 03/23/17 09:45 03/26/17 13:37 Vancomycin 1gm IVPB 167 mls/hr Q12H MARICHUY Administration Protocol Levetiracetam 1,500 mg/ Sodium 115 mls @ 460 mls/hr 03/24/17 15:20 03/26/17 11:44 Chloride IV 460 mls/hr Q12 MARICHUY Administration Fentanyl Citrate 1,000 mcg in 100 mls @ 2 mls/hr 03/25/17 18:43 03/26/17 13: 13 Fentanyl Citrate/Sodium Chloride 1 Mg/100 Ml IV 20 mcg/hr .Q24H PRN 2 mls/hr TITRATE PER MD ORDER Administration Protocol 20 MCG/HR Magnesium Oxide 400 mg 03/26/17 10:45 03/26/17 13:33 Mag-Ox PO 400 mg BID MARICHUY Administration Metoprolol Tartrate 5 mg 03/21/17 16:38 03/26/17 08:31 Lopressor IVP 5 mg Q4 PRN Administration sbp>160 or HR > 130 BPM Metoprolol Tartrate 12.5 mg 03/24/17 13:15 03/26/17 13:33 Lopressor PO 12.5 mg BID MARICHUY Administration Pantoprazole Sodium 40 mg 03/20/17 22:00 03/26/17 10:43 Protonix Inj IVP Not Given Q12 MARICHUY - Patient Studies Lab Studies: Microbiology Studies 03/23/17 12:00 Blood Culture - Preliminary Blood NO GROWTH AFTER 3 DAYS 03/23/17 10:15 Blood Culture - Preliminary Blood NO GROWTH AFTER 3 DAYS 03/20/17 13:30 Blood Culture - Final Blood NO GROWTH AFTER 5 DAYS Gram Stain - Final TEST NOT PERFORMED 03/20/17 13:30 Blood Culture - Final Blood NO GROWTH AFTER 5 DAYS Gram Stain - Final TEST NOT PERFORMED Lab Studies 03/26/17 03/26/17 03/26/17 Range/Units Unknown 08:34 05:20 WBC (4.5-11.0) 10^3/ul RBC (3.5-6.1) 10^6/uL Hgb (14.0-18.0) g/dL Hct (42.0-52.0) % MCV (80.0-105.0) fl MCH (25.0-35.0) pg MCHC (31.0-37.0) g/dl RDW (11.5-14.5) % Plt Count (120.0-450.0) 10^3/uL MPV (7.0-11.0) fl pCO2 (35-45) mm/Hg pO2 (80-100) mm/Hg HCO3 (21-28) mmol/L ABG pH (7.35-7.45) ABG Total CO2 (22-28) mmol.L ABG O2 Saturation (95-98) % ABG Base Excess (-2.0-3.0) mmol/L ABG Potassium (3.6-5.2) mmol/L Sodium 142 (132-148) mmol/L Chloride 105 (98-107) mmol/L Glucose (75-110) mg/dl Lactate (0.7-2.1) mmol/L Mechanical Rate FiO2 % Tidal Volume PEEP Potassium 3.4 L (3.6-5.0) mmol/L Carbon Dioxide 25 (21-33) mmol/L Anion Gap 15 (10-20) BUN 6 L (7-21) mg/dL Creatinine 0.6 L (0.8-1.5) mg/dL Est GFR ( Amer) > 60 Est GFR (Non-Af Amer) > 60 POC Glucose (mg/dL) 102 (65-110) mg/dL Random Glucose 106 (70-110) mg/dL Serum Osmolality (272-300) mosm/kg Calcium 8.7 (8.4-10.5) mg/dL Phosphorus 3.7 (2.5-4.5) mg/dL Magnesium 1.3 L (1.7-2.2) mg/dL Total Bilirubin 1.7 H (0.2-1.3) mg/dL AST 76 H (17-59) U/L ALT 60 H (7-56) U/L Alkaline Phosphatase 131 H (38-126) U/L Total Protein 7.5 (5.8-8.3) g/dL Albumin 3.4 (3.0-4.8) g/dL Globulin 4.1 gm/dL Albumin/Globulin Ratio 0.8 L (1.1-1.8) Arterial Blood Potassium (3.6-5.2) mmol/L Phenytoin 10 (10-20) ug/mL 03/26/17 03/26/17 03/26/17 Range/Units 05:20 05:10 03:17 WBC 11.0 (4.5-11.0) 10^3/ul RBC 3.02 L (3.5-6.1) 10^6/uL Hgb 9.1 L (14.0-18.0) g/dL Hct 27.0 L (42.0-52.0) % MCV 89.4 (80.0-105.0) fl MCH 30.1 (25.0-35.0) pg MCHC 33.7 (31.0-37.0) g/dl RDW 14.0 (11.5-14.5) % Plt Count 345 (120.0-450.0) 10^3/uL MPV 9.9 (7.0-11.0) fl pCO2 39 (35-45) mm/Hg pO2 95.0 (80-100) mm/Hg HCO3 23.1 (21-28) mmol/L ABG pH 7.38 (7.35-7.45) ABG Total CO2 24.3 (22-28) mmol.L ABG O2 Saturation 98.0 (95-98) % ABG Base Excess -1.8 (-2.0-3.0) mmol/L ABG Potassium 3.2 L (3.6-5.2) mmol/L Sodium 140.0 (132-148) mmol/L Chloride 107.0 (98-107) mmol/L Glucose 103 (75-110) mg/dl Lactate 0.7 (0.7-2.1) mmol/L Mechanical Rate 15 FiO2 40.0 % Tidal Volume 400 PEEP 8 Potassium (3.6-5.0) mmol/L Carbon Dioxide (21-33) mmol/L Anion Gap (10-20) BUN (7-21) mg/dL Creatinine (0.8-1.5) mg/dL Est GFR ( Amer) Est GFR (Non-Af Amer) POC Glucose (mg/dL) 105 (65-110) mg/dL Random Glucose (70-110) mg/dL Serum Osmolality (272-300) mosm/kg Calcium (8.4-10.5) mg/dL Phosphorus (2.5-4.5) mg/dL Magnesium (1.7-2.2) mg/dL Total Bilirubin (0.2-1.3) mg/dL AST (17-59) U/L ALT (7-56) U/L Alkaline Phosphatase (38-126) U/L Total Protein (5.8-8.3) g/dL Albumin (3.0-4.8) g/dL Globulin gm/dL Albumin/Globulin Ratio (1.1-1.8) Arterial Blood Potassium 3.2 L (3.6-5.2) mmol/L Phenytoin (10-20) ug/mL 03/25/17 03/25/17 03/25/17 Range/Units 21:23 15:16 08:30 WBC (4.5-11.0) 10^3/ul RBC (3.5-6.1) 10^6/uL Hgb (14.0-18.0) g/dL Hct (42.0-52.0) % MCV (80.0-105.0) fl MCH (25.0-35.0) pg MCHC (31.0-37.0) g/dl RDW (11.5-14.5) % Plt Count (120.0-450.0) 10^3/uL MPV (7.0-11.0) fl pCO2 (35-45) mm/Hg pO2 (80-100) mm/Hg HCO3 (21-28) mmol/L ABG pH (7.35-7.45) ABG Total CO2 (22-28) mmol.L ABG O2 Saturation (95-98) % ABG Base Excess (-2.0-3.0) mmol/L ABG Potassium (3.6-5.2) mmol/L Sodium (132-148) mmol/L Chloride (98-107) mmol/L Glucose (75-110) mg/dl Lactate (0.7-2.1) mmol/L Mechanical Rate FiO2 % Tidal Volume PEEP Potassium (3.6-5.0) mmol/L Carbon Dioxide (21-33) mmol/L Anion Gap (10-20) BUN (7-21) mg/dL Creatinine (0.8-1.5) mg/dL Est GFR ( Amer) Est GFR (Non-Af Amer) POC Glucose (mg/dL) 107 75 (65-110) mg/dL Random Glucose (70-110) mg/dL Serum Osmolality 290 (272-300) mosm/kg Calcium (8.4-10.5) mg/dL Phosphorus (2.5-4.5) mg/dL Magnesium (1.7-2.2) mg/dL Total Bilirubin (0.2-1.3) mg/dL AST (17-59) U/L ALT (7-56) U/L Alkaline Phosphatase (38-126) U/L Total Protein (5.8-8.3) g/dL Albumin (3.0-4.8) g/dL Globulin gm/dL Albumin/Globulin Ratio (1.1-1.8) Arterial Blood Potassium (3.6-5.2) mmol/L Phenytoin (10-20) ug/mL Laboratory Results - last 24 hr 03/25/17 03/25/17 03/25/17 08:30 15:16 21:23 WBC RBC Hgb Hct MCV MCH MCHC RDW Plt Count MPV pCO2 pO2 HCO3 ABG pH ABG Total CO2 ABG O2 Saturation ABG Base Excess ABG Potassium Sodium Chloride Glucose Lactate Mechanical Rate FiO2 Tidal Volume PEEP Potassium Carbon Dioxide Anion Gap BUN Creatinine Est GFR ( Amer) Est GFR (Non-Af Amer) POC Glucose (mg/dL) 75 107 Random Glucose Serum Osmolality 290 Calcium Phosphorus Magnesium Total Bilirubin AST ALT Alkaline Phosphatase Total Protein Albumin Globulin Albumin/Globulin Ratio Arterial Blood Potassium Phenytoin 03/26/17 03/26/17 03/26/17 03:17 05:10 05:20 WBC 11.0 RBC 3.02 L Hgb 9.1 L Hct 27.0 L MCV 89.4 MCH 30.1 MCHC 33.7 RDW 14.0 Plt Count 345 MPV 9.9 pCO2 39 pO2 95.0 HCO3 23.1 ABG pH 7.38 ABG Total CO2 24.3 ABG O2 Saturation 98.0 ABG Base Excess -1.8 ABG Potassium 3.2 L Sodium 140.0 Chloride 107.0 Glucose 103 Lactate 0.7 Mechanical Rate 15 FiO2 40.0 Tidal Volume 400 PEEP 8 Potassium Carbon Dioxide Anion Gap BUN Creatinine Est GFR ( Amer) Est GFR (Non-Af Amer) POC Glucose (mg/dL) 105 Random Glucose Serum Osmolality Calcium Phosphorus Magnesium Total Bilirubin AST ALT Alkaline Phosphatase Total Protein Albumin Globulin Albumin/Globulin Ratio Arterial Blood Potassium 3.2 L Phenytoin 03/26/17 03/26/17 03/26/17 05:20 08:34 Unknown WBC RBC Hgb Hct MCV MCH MCHC RDW Plt Count MPV pCO2 pO2 HCO3 ABG pH ABG Total CO2 ABG O2 Saturation ABG Base Excess ABG Potassium Sodium 142 Chloride 105 Glucose Lactate Mechanical Rate FiO2 Tidal Volume PEEP Potassium 3.4 L Carbon Dioxide 25 Anion Gap 15 BUN 6 L Creatinine 0.6 L Est GFR ( Amer) > 60 Est GFR (Non-Af Amer) > 60 POC Glucose (mg/dL) 102 Random Glucose 106 Serum Osmolality Calcium 8.7 Phosphorus 3.7 Magnesium 1.3 L Total Bilirubin 1.7 H AST 76 H ALT 60 H Alkaline Phosphatase 131 H Total Protein 7.5 Albumin 3.4 Globulin 4.1 Albumin/Globulin Ratio 0.8 L Arterial Blood Potassium Phenytoin 10 Critical Care Progress Note - Nutrition Nutrition: Nutrition Category Date Time Status NPO Diet [DIET] Diets 03/14/17 Breakfast Ordered Attending/Attestation - Attestation I have personally seen and examined this patient.: Yes I have fully participated in the care of the patient.: Yes I have reviewed all pertinent clinical information: Yes Notes (Text): 03/26/17 15:13 36 y/o M s/p Cardiac arrest and anoxic injury S/P Trach and PEG placement. Cont Seizures noted post op. On Versed/ Propofol Keppra, dilantin x 2 bolus and valproic. No neurological improvement noted. Neurology following closely. dvt p> Venous dopplers negative. ppi cc time 55 min
[2017-03-25] MEDS: Metoprolol 1 mg/ml Inj IVP PRN ×2 (06:38→14:09)
[2017-03-25] MEDS: Potassium Chloride 40 MEQ in Sodium Chloride 0.45% 1,000 ML IV SCH (07:08)
--- NOTE | 2017-03-25 07:35 | RAD ---
HISTORY: intubated, f/u COMPARISON: Portable chest 03/24/2017. FINDINGS: Endotracheal tube as well as nasogastric tube are unchanged in position. LUNGS: Linear atelectasis appreciate the left base in the retrocardiac space though limited airspace disease may otherwise to present as well here. They pattern is increasing in the interval. None is seen the right. PLEURA: No significant pleural effusion identified, no pneumothorax apparent. CARDIOVASCULAR: Normal. OSSEOUS STRUCTURES: No significant abnormalities. VISUALIZED UPPER ABDOMEN: Normal. OTHER FINDINGS: None. IMPRESSION: Limited increase in atelectasis and possible infiltrate at the left base with none on the right. No pleural effusion or pneumothorax identified in the interval.
[2017-03-25] MEDS ORDERED: Magnesium Sulfate 2 GM in Sodium Chloride 0.9% 100 ML IVPB SCH ×3 (08:00→10:29)
[2017-03-25] MEDS: levETIRAcetam 1,500 MG in Sodium Chloride 0.9% 100 ML IV SCH ×2 (09:34→22:23)
[2017-03-25] MEDS: Chlorhexidine 0.12% Oral Sol 480 ml Bot PO SCH ×2 (09:35→18:12)
[2017-03-25 10:50] LABS: URINE APPEARANCE CLEAR (CLEAR); URINE BILIRUBIN SMALL (NEGATIVE); URINE BLOOD SMALL (NEGATIVE); URINE COLOR YELLOW (YELLOW); URINE GLUCOSE (UA) NEGATIVE (NEGATIVE); URINE KETONE 40 mg/dL (NEGATIVE); URINE LEUKOCYTE ESTERASE NEGATIVE Leu/uL (NEGATIVE); URINE PROTEIN NEGATIVE mg/dL (<30 mg/dL); URINE UROBILINOGEN 0.2 E.U./dL (<1 E.U./dL)
[2017-03-25 10:57] LABS: URINE WBC NEGATIVE /hpf (0-6)
--- NOTE | 2017-03-25 11:12 | CP.PCM.PN ---
Subjective - Date & Time of Evaluation Date of Evaluation: 03/25/17 Time of Evaluation: 11:08 - Subjective Subjective: 36 yo M admitted after drug overdose, prolonged cardiac arrest, with anoxic brain injury, being followed for OTONIEL and electrolyte abnormalities; Didn't go for trach/PEG yesterday, possibly today; otherwise still spiking low grade temp; Objective - Vital Signs/Intake and Output Vital Signs (last 24 hours): Temp Pulse Resp BP Pulse Ox 100.9 F H 120 H 18 146/100 H 100 03/25/17 04:00 03/25/17 09:37 03/25/17 07:37 03/25/17 06:38 03/25/17 07:37 Intake and Output: 03/25/17 03/25/17 06:59 18:59 Intake Total 2707 100 Output Total 1900 Balance 807 100 - Medications Medications: Current Medications Acetaminophen (Tylenol 325 Mg Supp) 325 mg RC Q4H PRN PRN Reason: Fever >100.4 F Last Admin: 03/22/17 21:00 Dose: 325 mg Albuterol/Ipratropium (Duoneb 3 Mg/0.5 Mg (3 Ml) Ud) 3 ml IH Q2H PRN PRN Reason: Shortness of Breath Last Admin: 03/13/17 15:45 Dose: 3 ml Albuterol/Ipratropium (Duoneb 3 Mg/0.5 Mg (3 Ml) Ud) 3 ml IH [id number] [facility] Last Admin: 03/25/17 07:31 Dose: 3 ml Chlorhexidine Gluconate (Peridex) 15 ml PO BID [facility] Last Admin: 03/25/17 09:35 Dose: 15 ml Propofol (Diprivan) 1,000 mg in 100 mls @ 3.674 mls/hr IV .Q24H PRN; Protocol; 5 MCG/KG/MIN PRN Reason: TITRATE PER MD ORDER Last Admin: 03/25/17 07:28 Dose: 50 mcg/kg/min, 36.741 mls/hr Potassium Chloride 40 meq/ (Sodium Chloride) 1,020 mls @ 100 mls/hr IV .[id number] [facility] Last Admin: 03/25/17 07:08 Dose: 100 mls/hr Phenytoin 100 mg/ Sodium (Chloride) 52 mls @ 104 mls/hr IVPB TID [facility] Last Admin: 03/25/17 09:34 Dose: 104 mls/hr Metronidazole (Flagyl) 500 mg in 100 mls @ 100 mls/hr IVPB Q8 [facility] PRN Reason: Protocol Stop: 03/28/17 14:01 Last Admin: 03/25/17 05:14 Dose: 100 mls/hr Valproate Sodium 500 mg/ (Sodium Chloride) 105 mls @ 100 mls/hr IVPB Q8 [facility] Last Admin: 03/25/17 05:14 Dose: 100 mls/hr Fentanyl Citrate (Fentanyl Citrate/Sodium Chloride 1 Mg/100 Ml) 1,000 mcg in 100 mls @ 2 mls/hr IV .Q24H PRN; Protocol; 20 MCG/HR PRN Reason: TITRATE PER MD ORDER Last Admin: 03/25/17 06:23 Dose: 200 mcg/hr, 20 mls/hr Midazolam 100 mg/100ml in NS (Midazolam 100 Mg/100ml In Ns) 100 mg in 100 mls @ 20 mls/hr IV .Q5H PRN; Protocol; 20 MG/HR PRN Reason: Sedation Last Admin: 03/25/17 07:14 Dose: 30 mg/hr, 30 mls/hr Vancomycin HCl (Vancomycin 1gm) 1 gm in 250 mls @ 167 mls/hr IVPB Q12H [facility] PRN Reason: Protocol Last Admin: 03/24/17 21:24 Dose: 167 mls/hr Levetiracetam 1,500 mg/ Sodium (Chloride) 115 mls @ 460 mls/hr IV Q12 [facility] Last Admin: 03/25/17 09:34 Dose: 460 mls/hr Metoprolol Tartrate (Lopressor) 5 mg IVP Q4 PRN PRN Reason: sbp>160 or HR > 130 BPM Last Admin: 03/25/17 06:38 Dose: 5 mg Metoprolol Tartrate (Lopressor) 12.5 mg PO BID [facility] Last Admin: 03/25/17 09:37 Dose: 12.5 mg Pantoprazole Sodium (Protonix Inj) 40 mg IVP Q12 [facility] Last Admin: 03/25/17 09:37 Dose: 40 mg - Labs Labs: 03/25/17 05:20 03/25/17 05:20 PT 11.9 Seconds (9.9-11.8) H 03/22/17 05:30 INR 1.10 (0.93-1.08) H 03/22/17 05:30 APTT 24.9 Seconds (23.7-30.8) 03/22/17 05:30 - Constitutional Appears: Non-toxic, No Acute Distress - Head Exam Head Exam: NORMAL INSPECTION - Eye Exam Eye Exam: absent: Scleral icterus - ENT Exam ENT Exam: Mucous Membranes Moist - Respiratory Exam Respiratory Exam: Clear to Ausculation Bilateral. absent: Rales, Rhonchi, Wheezes, Respiratory Distress - Cardiovascular Exam Cardiovascular Exam: Tachycardia, REGULAR RHYTHM, +S1, +S2 - GI/Abdominal Exam GI & Abdominal Exam: Soft Additional comments: mildly distended; - Extremities Exam Additional comments: mild pedal edema bilaterally; - Neurological Exam Additional comments: sedated; - Skin Skin Exam: Warm. absent: Cyanosis Assessment and Plan (1) Acute renal failure Assessment & Plan: ATN, resolved; Status: Resolved (2) ARDS (adult respiratory distress syndrome) Status: Acute (3) Polyuria Assessment & Plan: Continues to persist but still getting high inputs despite our effort to limit them (I/O ~4L/6L); appears to be primarily a solute diuresis at this point since hypernatremia is stable; recommend to avoid IV supplementation of electrolytes and just give PO if only mild depletion; Status: Acute (4) Electrolyte imbalance Assessment & Plan: Hypernatremia improved with tubular function improving post-ATN recovery; K stable; hypomagnesemia today; need to run IV mag slowly to avoid renal mag wasting; Status: Acute
[2017-03-25] MEDS ORDERED: Lidocaine 1% Inj (20ml) ONE (11:14)
[2017-03-25] MEDS ORDERED: Bupivacaine 0.5% Inj(30mL) ONE (11:14)
[2017-03-25] MEDS ORDERED: Midazolam 2 MG/2 ML VIAL ONE (11:19)
[2017-03-25] MEDS ORDERED: Rocuronium 10 mg/ml (5 ml) ONE ×4 (11:19→13:00)
[2017-03-25] MEDS ORDERED: Sevoflurane - Inhalation Anesthetic Liq (250 ml) ONE (12:03)
--- NOTE | 2017-03-25 13:47 | PCM.SURG1 ---
Surgeon's Initial Post Op Note - Surgeon's Notes Surgeon: Eric Vehicle Care Specialist: Deanna Culp Type of Anesthesia: General Endo Pre-Operative Diagnosis: Anoxic brain injury Operative Findings: Same Post-Operative Diagnosis: SAme Operation Performed: Gatrostomy tube, tracheostomy Specimen/Specimens Removed: None Estimated Blood Loss: EBL {In ML}: 50 Blood Products Given: N/A Post-Op Condition: Fair Date of Surgery/Procedure: 03/25/17 Time of Surgery/Procedure: 13:46
--- NOTE | 2017-03-25 14:44 | RAD ---
HISTORY: s/p tracheostomy COMPARISON: No prior. FINDINGS: LUNGS: There is no I tracheostomy in place. This is an normal position. The nasogastric tube is unchanged. PLEURA: No significant pleural effusion identified, no pneumothorax apparent. CARDIOVASCULAR: Normal. OSSEOUS STRUCTURES: No significant abnormalities. VISUALIZED UPPER ABDOMEN: Normal. OTHER FINDINGS: None. IMPRESSION: No active disease.
--- NOTE | 2017-03-25 18:23 | CP.PCM.PN ---
<Zac Archer - Last Filed: 03/25/17 18:38> Subjective - Date & Time of Evaluation Date of Evaluation: 03/25/17 Time of Evaluation: 06:21 - Subjective Subjective: Patient seen and examined at bedside. Per nursing no acute events occurred overnight. The patient is expected to have trach and g-tube surgery today. ROS unobtainable due to clinical condition. Objective - Vital Signs/Intake and Output Vital Signs (last 24 hours): Temp Pulse Resp BP Pulse Ox 100 F H 126 H 33 H 132/76 100 03/25/17 16:00 03/25/17 18:05 03/25/17 14:00 03/25/17 17:00 03/25/17 17:00 Intake and Output: 03/25/17 03/25/17 06:59 18:59 Intake Total 2707 400 Output Total 1900 Balance 807 400 - Medications Medications: Current Medications Acetaminophen (Tylenol 325 Mg Supp) 325 mg RC Q4H PRN PRN Reason: Fever >100.4 F Last Admin: 03/22/17 21:00 Dose: 325 mg Albuterol/Ipratropium (Duoneb 3 Mg/0.5 Mg (3 Ml) Ud) 3 ml IH Q2H PRN PRN Reason: Shortness of Breath Last Admin: 03/13/17 15:45 Dose: 3 ml Albuterol/Ipratropium (Duoneb 3 Mg/0.5 Mg (3 Ml) Ud) 3 ml IH [id number] [facility] Last Admin: 03/25/17 13:56 Dose: 3 ml Chlorhexidine Gluconate (Peridex) 15 ml PO BID [facility] Last Admin: 03/25/17 18:12 Dose: Not Given Propofol (Diprivan) 1,000 mg in 100 mls @ 3.674 mls/hr IV .Q24H PRN; Protocol; 5 MCG/KG/MIN PRN Reason: TITRATE PER MD ORDER Last Admin: 03/25/17 17:57 Dose: 50 mcg/kg/min, 36.741 mls/hr Potassium Chloride 40 meq/ (Sodium Chloride) 1,020 mls @ 100 mls/hr IV .[id number] [facility] Last Admin: 03/25/17 07:08 Dose: 100 mls/hr Phenytoin 100 mg/ Sodium (Chloride) 52 mls @ 104 mls/hr IVPB TID [facility] Last Admin: 03/25/17 17:58 Dose: 104 mls/hr Metronidazole (Flagyl) 500 mg in 100 mls @ 100 mls/hr IVPB Q8 [facility] PRN Reason: Protocol Stop: 03/28/17 14:01 Last Admin: 03/25/17 15:19 Dose: 100 mls/hr Valproate Sodium 500 mg/ (Sodium Chloride) 105 mls @ 100 mls/hr IVPB Q8 [facility] Last Admin: 03/25/17 16:26 Dose: 100 mls/hr Midazolam 100 mg/100ml in NS (Midazolam 100 Mg/100ml In Ns) 100 mg in 100 mls @ 20 mls/hr IV .Q5H PRN; Protocol; 20 MG/HR PRN Reason: Sedation Last Admin: 03/25/17 16:19 Dose: 50 mg/hr, 50 mls/hr Vancomycin HCl (Vancomycin 1gm) 1 gm in 250 mls @ 167 mls/hr IVPB Q12H [facility] PRN Reason: Protocol Last Admin: 03/24/17 21:24 Dose: 167 mls/hr Levetiracetam 1,500 mg/ Sodium (Chloride) 115 mls @ 460 mls/hr IV Q12 [facility] Last Admin: 03/25/17 09:34 Dose: 460 mls/hr Metoprolol Tartrate (Lopressor) 5 mg IVP Q4 PRN PRN Reason: sbp>160 or HR > 130 BPM Last Admin: 03/25/17 14:09 Dose: 5 mg Metoprolol Tartrate (Lopressor) 12.5 mg PO BID [facility] Last Admin: 03/25/17 18:05 Dose: 12.5 mg Pantoprazole Sodium (Protonix Inj) 40 mg IVP Q12 [facility] Last Admin: 03/25/17 09:37 Dose: 40 mg - Labs Labs: 03/25/17 05:20 03/25/17 05:20 PT 11.9 Seconds (9.9-11.8) H 03/22/17 05:30 INR 1.10 (0.93-1.08) H 03/22/17 05:30 APTT 24.9 Seconds (23.7-30.8) 03/22/17 05:30 - Head Exam Head Exam: ATRAUMATIC, NORMAL INSPECTION, NORMOCEPHALIC - Eye Exam Eye Exam: Normal appearance, PERRL. absent: Periorbital tenderness Pupil Exam: PERRL - ENT Exam ENT Exam: Mucous Membranes Moist, Normal Exam - Neck Exam Neck Exam: Normal Inspection. absent: Lymphadenopathy, Thyromegaly - Respiratory Exam Respiratory Exam: Rhonchi, NORMAL BREATHING PATTERN. absent: Clear to Ausculation Bilateral - Cardiovascular Exam Cardiovascular Exam: REGULAR RHYTHM, +S1, +S2. absent: Gallop, Rubs - GI/Abdominal Exam GI & Abdominal Exam: Soft, Normal Bowel Sounds - Extremities Exam Extremities Exam: absent: Calf Tenderness, Joint Swelling, Pedal Edema, Tenderness - Neurological Exam Neurological Exam: Altered - Skin Skin Exam: Dry, Intact Assessment and Plan - Assessment and Plan (Free Text) Assessment: 36 y/o male with PMH of substance abuse presents with drug overdose, with multiple substances (+BZDs, barbiturate, Opiates), s/p ROSC after cardiac arrest x 3, unknown initial downtime at home. Tracheostomy and G-tube placement not placed Wednesday by surgery due to hypernatremia. Pt will be rescheduled for Wednesday. Pt also started on d5W and free water via the NGT. Antibiotics will also be stopped at tihs time. Patient began running a fever and Vancomycin added to Flagyl. Patient expected to undergo trach and g tube placement today. Prognosis discussed with family, who are still hopeful patient will have a meaningful recovery. Plan: Neuro: -Patient intubated and unresponsive on sedative medication -Continue to Maintain temp ~92-94F -Neurochecks q2h -Urine toxicology positive for opiates, barbiturates and benzos -CT Head (-). Seen by Neurology. -Repeat EEG demonstrates anoxic brain injury and poor prognosis. -Brain MRI showed anoxic injury in thalamic region bilaterally. -Will continue to attempt weaning trials -Continue Seizure precautions -Neuro status hard to determine due to sedation. Will reassess once sedation is weaned off. -Overnight patient had two seizures again. Continue Fentanyl 200mcg/hr, Midazolam 30mcg/hr, Propofol 50mcg/hr. Will continue to monitor. -Patient scheduled tracheostomy and gastrostomy tentatively scheduled for today per surgery team. -Family agreeable to LTACH. Awaiting approval. Cardio: -EKG reviewed; atrial fibrillation with slow ventricular response (51bpm), nonspecific intraventricular block -Patient sinus tachycardic at 120 after 5mg of Lopressor this morning. Will continue to monitor. Pulm: -Failed CPAP trial, will remain on full ventilatory support. Patient Tracheostomy expected to happen this week. -CXR showed limited increased in atelectasis and possible infiltrate at left base with none at the right. Negative pleural effusion or pneumothorax. -patient pO2 stable. Patient's FiO2 35%%. Will monitor closely. -Continue serial CXR and ABG. GI: -NPO -NGT -Protonix Renal: -Hypernatremic resolved. Will continue to monitor closely. -Hypokalemia (4.3 today) Resolved. Will replete as needed. -Magnesium 1.9. Will replete at needed. -Will continue to monitor and treat electrolyte abnormalities as indicated -Monitor I's and O's Endo: -Fingersticks q2h -Maintain euglycemia between 140-180's -Stress dose steroids, tapering ID: -Current temperature 100.9. Blood cx(-)x24 hours. Repeat U/A was negative for UTI. Repeat Urine cx uncollected. Will f/u with results. Continue Tylenol as needed.Continue Metronidazole and Vancomycin. -Sputum culture grew Yeast species. Will f/u with repeat cultures. GI/DVT Prophylaxis -Protonix/SCD's <Miguel Carlos - Last Filed: 03/26/17 13:41> Objective - Vital Signs/Intake and Output Vital Signs (last 24 hours): Temp Pulse Resp BP Pulse Ox 100.8 F H 126 H 20 129/69 100 03/26/17 12:00 03/26/17 12:30 03/26/17 12:00 03/26/17 12:30 03/26/17 12:30 Intake and Output: 03/26/17 03/26/17 06:59 18:59 Intake Total 900 1200 Output Total 2200 Balance 900 -1000 - Medications Medications: Current Medications Acetaminophen (Tylenol 325 Mg Supp) 325 mg RC Q4H PRN PRN Reason: Fever >100.4 F Last Admin: 03/26/17 08:36 Dose: 325 mg Albuterol/Ipratropium (Duoneb 3 Mg/0.5 Mg (3 Ml) Ud) 3 ml IH Q2H PRN PRN Reason: Shortness of Breath Last Admin: 03/13/17 15:45 Dose: 3 ml Albuterol/Ipratropium (Duoneb 3 Mg/0.5 Mg (3 Ml) Ud) 3 ml IH [id number] [facility] Last Admin: 03/26/17 07:07 Dose: 3 ml Chlorhexidine Gluconate (Peridex) 15 ml PO BID [facility] Last Admin: 03/25/17 18:12 Dose: Not Given Propofol (Diprivan) 1,000 mg in 100 mls @ 3.674 mls/hr IV .Q24H PRN; Protocol; 5 MCG/KG/MIN PRN Reason: TITRATE PER MD ORDER Last Admin: 03/26/17 09:34 Dose: 50 mcg/kg/min, 36.741 mls/hr Potassium Chloride 40 meq/ (Sodium Chloride) 1,020 mls @ 100 mls/hr IV .[id number] [facility] Last Admin: 03/25/17 07:08 Dose: 100 mls/hr Phenytoin 100 mg/ Sodium (Chloride) 52 mls @ 104 mls/hr IVPB TID [facility] Last Admin: 03/26/17 12:32 Dose: 104 mls/hr Metronidazole (Flagyl) 500 mg in 100 mls @ 100 mls/hr IVPB Q8 [facility] PRN Reason: Protocol Stop: 03/28/17 14:01 Last Admin: 03/26/17 06:29 Dose: 100 mls/hr Valproate Sodium 500 mg/ (Sodium Chloride) 105 mls @ 100 mls/hr IVPB Q8 [facility] Last Admin: 03/26/17 06:27 Dose: 100 mls/hr Midazolam 100 mg/100ml in NS (Midazolam 100 Mg/100ml In Ns) 100 mg in 100 mls @ 20 mls/hr IV .Q5H PRN; Protocol; 20 MG/HR PRN Reason: Sedation Last Admin: 03/26/17 06:53 Dose: 50 mg/hr, 50 mls/hr Vancomycin HCl (Vancomycin 1gm) 1 gm in 250 mls @ 167 mls/hr IVPB Q12H [facility] PRN Reason: Protocol Last Admin: 03/25/17 21:13 Dose: 167 mls/hr Levetiracetam 1,500 mg/ Sodium (Chloride) 115 mls @ 460 mls/hr IV Q12 [facility] Last Admin: 03/26/17 11:44 Dose: 460 mls/hr Fentanyl Citrate (Fentanyl Citrate/Sodium Chloride 1 Mg/100 Ml) 1,000 mcg in 100 mls @ 2 mls/hr IV .Q24H PRN; Protocol; 20 MCG/HR PRN Reason: TITRATE PER MD ORDER Last Admin: 03/26/17 08:21 Dose: 20 mcg/hr, 2 mls/hr Magnesium Oxide (Mag-Ox) 400 mg PO BID [facility] Metoprolol Tartrate (Lopressor) 5 mg IVP Q4 PRN PRN Reason: sbp>160 or HR > 130 BPM Last Admin: 03/26/17 08:31 Dose: 5 mg Metoprolol Tartrate (Lopressor) 12.5 mg PO BID [facility] Last Admin: 03/25/17 18:05 Dose: 12.5 mg Pantoprazole Sodium (Protonix Inj) 40 mg IVP Q12 [facility] Last Admin: 03/26/17 10:43 Dose: Not Given - Labs Labs: 03/26/17 05:20 03/26/17 05:20 PT 11.9 Seconds (9.9-11.8) H 03/22/17 05:30 INR 1.10 (0.93-1.08) H 03/22/17 05:30 APTT 24.9 Seconds (23.7-30.8) 03/22/17 05:30 Attending/Attestation - Attestation I have personally seen and examined this patient.: Yes I have fully participated in the care of the patient.: Yes I have reviewed all pertinent clinical information, including history, physical exam and plan: Yes Notes (Text): 03/26/17 13:39 Patient was seen and examined with medical massage therapist.Family is at bed side. 36 y/o M w/ prolonged intubation following cardiac arrest x 2, ARDS and septic shock. Patient is still febrile ,the etiology of fever is unclear, cultures are negative so fat Fever could be due to seizure/ central fever. Patient is having multiple seizure Status epilepticus ?sedated on Propofol, Fentanyl and Versed. Keppra ,He is also on Dilantin and Valproic acid . Patient is scheduled for tracheostomy and PEG tube placement today. Acute renal failure has improved, making lot of urine, Hypernatremia could have underlying central DI Prognosis is guarded. Management plan was discussed in detail with patient Education was provided.
[2017-03-25] MEDS: Vancomycin 1gm in NS 250ml 1 GM/250 ML BAG IVPB SCH (21:13)
--- NOTE | 2017-03-25 21:43 | OP ---
LOCATION: Room #128, bed 3. PREOPERATIVE DIAGNOSIS: Respiratory failure. POSTOPERATIVE DIAGNOSIS: Respiratory failure. OPERATION PERFORMED: Gastrostomy, open feeding and open tracheostomy. SURGEON: Shabbir Reyes MD [employer] ASSISTANT: Dr. Tyson and Dr. Locke. ESTIMATED BLOOD LOSS: Minimal. DESCRIPTION OF PROCEDURE: In the operating room, the patient was identified by timeout that included name, name of the procedure, laterality, my esmer, and the consent. The abdomen was prepped and draped in the usual manner and the abdomen was entered through an upper midline incision. The stomach was readily available and was into the wound. It was grabbed through [place]. A purse-string was placed and #24 gastrostomy was placed through a lateral opening using cautery and the Selene. The gastrotomy was made. The tube was placed. It was flushed, irrigated, and dried. The purse-string placed and tied followed by another purse-string. The posterior 0 Vicryl was placed followed by two sides and one anterior to adhere the stomach to the abdominal wall. The catheter was sutured in good position. There was nothing else untoward, it was flushed. The incision was closed with running #1 PDS above and below and tied with subcuticular and subcutaneous and PDS Vicryl. Dry dressing was applied. The patient was hyperextended in the neck and explored. The neck was prepped and draped. A midline incision was made, up and down incision. The midline was found quickly. The strap muscles were spread apart nicely and the cricothyroid cartilage was identified. The second and third rings were identified. At the second ring, it was open, the core was taken out, it was dilated. A tracheostomy was inserted without issue. It was sutured in place after the CO2 monitor this in good position. X-ray is pending. The incision was closed with nylon, was sutured in placed and then held in place with the placeholder. The patient was taken to the ICU in good condition after the sponge and needle count were declared correct. Shabbir Reyes MD [facility] # [id number]
[2017-03-26] MEDS: Midazolam 100 mg/100ml in NS 100 MG/100 ML SOL IV PRN ×6 (01:20→21:50)
[2017-03-26] MEDS: Propofol 10 mg/ml 1,000 MG/100 ML VIAL IV PRN ×6 (01:24→22:30)
[2017-03-26] MEDS: Fentanyl 1000mcg/100ml NS 1,000 MCG/100 ML BAG IV PRN ×5 (02:30→21:48)
[2017-03-26] MEDS: Albuterol-Ipratrop 3 mg / 0.5 (3 ml) UD IH SCH ×4 (02:40→19:45)
[2017-03-26 05:36] LABS: ABG MECHANICAL RATE 15; ARTERIAL BLOOD GAS HCO3 23.1 mmol/L (21-28); ARTERIAL BLOOD GAS PH 7.38 (7.35-7.45); ATERIAL BLOOD GAS PEEP 8
[2017-03-26] MEDS: Valproate 500 MG in Sodium Chloride 0.9% 100 ML IVPB SCH ×3 (06:27→21:51)
[2017-03-26] MEDS: metroNIDAZOLE IV 500 mg/100 ml 500 MG/100 ML BAG IVPB SCH (06:29)
[2017-03-26 06:31] LABS: MEAN CELL VOLUME 89.4 fl (80.0-105.0); MEAN CORPUSCULAR HEMOGLOBIN 30.1 pg (25.0-35.0); MEAN CORPUSCULAR HGB CONC 33.7 g/dl (31.0-37.0); MEAN PLATELET VOLUME 9.9 fl (7.0-11.0)
[2017-03-26 06:48] LABS: ALB/GLOB RATIO 0.8 (1.1-1.8); ALKALINE PHOSPHATASE 131 U/L (38-126); ALT/SGPT 60 U/L (7-56); AST/SGOT 76 U/L (17-59); BILIRUBIN,TOTAL 1.7 mg/dL (0.2-1.3); BLOOD UREA NITROGEN 6 mg/dL (7-21); CALCIUM 8.7 mg/dL (8.4-10.5); CARBON DIOXIDE 25 mmol/L (21-33); CHLORIDE 105 mmol/L (98-107); GFR AFRICAN-AMERICAN > 60; GLUCOSE,RANDOM 106 mg/dL (70-110); MAGNESIUM 1.3 mg/dL (1.7-2.2); PHOSPHOROUS 3.7 mg/dL (2.5-4.5); POTASSIUM 3.4 mmol/L (3.6-5.0); SODIUM 142 mmol/L (132-148); TOTAL PROTEIN 7.5 g/dL (5.8-8.3)
[2017-03-26] MEDS ORDERED: Magnesium Sulfate 2 GM in Sodium Chloride 0.9% 100 ML IVPB SCH ×2 (07:30→10:32)
[2017-03-26] MEDS: Metoprolol 1 mg/ml Inj IVP PRN ×2 (08:31→21:48)
--- NOTE | 2017-03-26 08:33 | CP.PCM.PN ---
Subjective - Date & Time of Evaluation Date of Evaluation: 03/26/17 Time of Evaluation: 08:30 - Subjective Subjective: Surgery Pt s&e. Pt had gastrostomy tube and tracheostomy yesterday and tolerated it well. Objective - Vital Signs/Intake and Output Vital Signs (last 24 hours): Temp Pulse Resp BP Pulse Ox 101 F H 136 H 23 160/93 H 100 03/26/17 08:00 03/26/17 08:10 03/26/17 08:00 03/26/17 08:00 03/26/17 08:10 Intake and Output: 03/26/17 03/26/17 06:59 18:59 Intake Total 900 1000 Output Total 2200 Balance 900 -1200 - Medications Medications: Current Medications Acetaminophen (Tylenol 325 Mg Supp) 325 mg RC Q4H PRN PRN Reason: Fever >100.4 F Last Admin: 03/25/17 21:01 Dose: 325 mg Albuterol/Ipratropium (Duoneb 3 Mg/0.5 Mg (3 Ml) Ud) 3 ml IH Q2H PRN PRN Reason: Shortness of Breath Last Admin: 03/13/17 15:45 Dose: 3 ml Albuterol/Ipratropium (Duoneb 3 Mg/0.5 Mg (3 Ml) Ud) 3 ml IH [id number] [facility] Last Admin: 03/26/17 07:07 Dose: 3 ml Chlorhexidine Gluconate (Peridex) 15 ml PO BID [facility] Last Admin: 03/25/17 18:12 Dose: Not Given Propofol (Diprivan) 1,000 mg in 100 mls @ 3.674 mls/hr IV .Q24H PRN; Protocol; 5 MCG/KG/MIN PRN Reason: TITRATE PER MD ORDER Last Admin: 03/26/17 06:54 Dose: 50 mcg/kg/min, 36.741 mls/hr Potassium Chloride 40 meq/ (Sodium Chloride) 1,020 mls @ 100 mls/hr IV .[id number] [facility] Last Admin: 03/25/17 07:08 Dose: 100 mls/hr Phenytoin 100 mg/ Sodium (Chloride) 52 mls @ 104 mls/hr IVPB TID [facility] Last Admin: 03/25/17 17:58 Dose: 104 mls/hr Metronidazole (Flagyl) 500 mg in 100 mls @ 100 mls/hr IVPB Q8 [place] PRN Reason: Protocol Stop: 03/28/17 14:01 Last Admin: 03/26/17 06:29 Dose: 100 mls/hr Valproate Sodium 500 mg/ (Sodium Chloride) 105 mls @ 100 mls/hr IVPB Q8 [place] Last Admin: 03/26/17 06:27 Dose: 100 mls/hr Midazolam 100 mg/100ml in NS (Midazolam 100 Mg/100ml In Ns) 100 mg in 100 mls @ 20 mls/hr IV .Q5H PRN; Protocol; 20 MG/HR PRN Reason: Sedation Last Admin: 03/26/17 06:53 Dose: 50 mg/hr, 50 mls/hr Vancomycin HCl (Vancomycin 1gm) 1 gm in 250 mls @ 167 mls/hr IVPB Q12H [place] PRN Reason: Protocol Last Admin: 03/25/17 21:13 Dose: 167 mls/hr Levetiracetam 1,500 mg/ Sodium (Chloride) 115 mls @ 460 mls/hr IV Q12 [facility] Last Admin: 03/25/17 22:23 Dose: 460 mls/hr Fentanyl Citrate (Fentanyl Citrate/Sodium Chloride 1 Mg/100 Ml) 1,000 mcg in 100 mls @ 2 mls/hr IV .Q24H PRN; Protocol; 20 MCG/HR PRN Reason: TITRATE PER MD ORDER Last Admin: 03/26/17 02:30 Dose: 20 mcg/hr, 2 mls/hr Magnesium Sulfate 2 gm/ Sodium (Chloride) 104 mls @ 102 mls/hr IVPB Q3H [facility] Stop: 03/26/17 20:32 Potassium Chloride (Potassium Chloride 20 Meq/100 Ml) 20 meq in 100 mls @ 50 mls/hr IVPB Q2H [facility] Stop: 03/26/17 12:14 Metoprolol Tartrate (Lopressor) 5 mg IVP Q4 PRN PRN Reason: sbp>160 or HR > 130 BPM Last Admin: 03/25/17 14:09 Dose: 5 mg Metoprolol Tartrate (Lopressor) 12.5 mg PO BID [facility] Last Admin: 03/25/17 18:05 Dose: 12.5 mg Pantoprazole Sodium (Protonix Inj) 40 mg IVP Q12 [facility] Last Admin: 03/25/17 21:12 Dose: 40 mg - Labs Labs: 03/26/17 05:20 03/26/17 05:20 PT 11.9 Seconds (9.9-11.8) H 03/22/17 05:30 INR 1.10 (0.93-1.08) H 03/22/17 05:30 APTT 24.9 Seconds (23.7-30.8) 03/22/17 05:30 - Constitutional Appears: Non-toxic - Head Exam Head Exam: ATRAUMATIC, NORMAL INSPECTION, NORMOCEPHALIC - ENT Exam ENT Exam: Mucous Membranes Moist Additional comments: Trach collar in place - Respiratory Exam Respiratory Exam: absent: NORMAL BREATHING PATTERN Additional comments: Trach - Cardiovascular Exam Cardiovascular Exam: REGULAR RHYTHM, +S1, +S2 - GI/Abdominal Exam GI & Abdominal Exam: Soft, Normal Bowel Sounds. absent: Distended, Firm, Guarding, Rigid, Tenderness Additional comments: Gastrostomy tube in place. - Extremities Exam Extremities Exam: Normal Capillary Refill, Normal Inspection. absent: Joint Swelling, Pedal Edema - Back Exam Back Exam: NORMAL INSPECTION - Neurological Exam Neurological Exam: absent: Alert, Awake, Normal Gait, Oriented x3 - Skin Skin Exam: Dry, Intact, Normal Color, Warm Assessment and Plan - Assessment and Plan (Free Text) Assessment: POD 1 s/p trach and gastrostomy -Gastric residual check : Ok to use tube feed when less than 100cc/8hrs. -NG tube feed in the mean time. -AXR -ICU managment Will DW Dr. Reyes
--- NOTE | 2017-03-26 09:30 | RAD ---
HISTORY: intubated, f/u COMPARISON: 03/25/2017 FINDINGS: LUNGS: No active pulmonary disease. PLEURA: No significant pleural effusion identified, no pneumothorax apparent. CARDIOVASCULAR: Normal heart size. No congestive change. Tracheostomy and nasogastric tube are unchanged. OSSEOUS STRUCTURES: No significant abnormalities. VISUALIZED UPPER ABDOMEN: Normal. OTHER FINDINGS: None. IMPRESSION: No active disease.
--- NOTE | 2017-03-26 09:56 | RAD ---
HISTORY: s/p gastrostomy COMPARISON: No prior. FINDINGS: BOWEL: Normal bowel gas pattern. No hepatic or splenic enlargement. Mid left abdominal vertical staple line. Nasogastric tube extends to left upper quadrant of abdomen. BONES: Normal. OTHER FINDINGS: None. IMPRESSION: No active disease.
--- NOTE | 2017-03-26 10:56 | CP.CCUPN ---
<Jerman Kilgore - Last Filed: 03/26/17 10:39> CCU Subjective - Physician Review Subjective (Free Text): 03/26/17 10:39 Patient seen and examined at bedside in the ICU. Due to persistent seizure episodes despite sedation and seizure ppx, the patient is now on Propofol/Versed /Fentanyl for sedation, and Keppra/Phenytoin/Valproic Acid for seizure ppx. No further coffee-ground emesis episodes reported; more seizures reported overnight. Remains sedated, vented on trach. Have been unable to arrange transfer to center for 24-hour EEG monitoring and possible barbiturate coma; refused at [facility] and [facility], unable to reach [facility]. S/p Trach/G-tube POD #1 CCU Objective - Vital Signs / Intake & Output Vital Signs (Last 4 hours): Vital Signs Temp Pulse Resp BP Pulse Ox 03/26/17 10:30 131 H 157/83 H 100 03/26/17 10:20 133 H 100 03/26/17 10:10 131 H 100 03/26/17 10:00 130 H 157/87 H 100 03/26/17 09:50 129 H 100 03/26/17 09:40 125 H 100 03/26/17 09:30 124 H 143/80 100 03/26/17 09:20 123 H 100 03/26/17 09:15 126 H 144/81 100 03/26/17 09:10 123 H 100 03/26/17 09:00 121 H 149/78 100 03/26/17 08:50 124 H 100 03/26/17 08:45 122 H 157/93 H 100 03/26/17 08:40 139 H 100 03/26/17 08:36 101 F H 03/26/17 08:31 139 H 160/93 H 03/26/17 08:30 139 H 100 03/26/17 08:20 136 H 100 03/26/17 08:10 136 H 100 03/26/17 08:00 101 F H 130 H 23 160/93 H 100 03/26/17 07:50 134 H 100 03/26/17 07:40 134 H 100 03/26/17 07:30 130 H 100 03/26/17 07:28 129 H 147/84 100 03/26/17 07:20 129 H 100 03/26/17 07:18 25 H 100 03/26/17 07:10 130 H 100 03/26/17 07:00 131 H 100 03/26/17 06:50 132 H 100 03/26/17 06:40 131 H 100 Intake and Output (Last 8hrs): Intake & Output 03/25/17 03/26/17 03/26/17 22:59 06:59 14:59 Intake Total 042 305 8564 Output Total 2400 2200 Balance -1700 600 -1000 Intake: IV 676 296 5972 Left Antecubital 1000 Oral 0 Tube Feeding 0 Output: Gastric Amount 450 Nares 250 Stomach 200 Urine 2400 1750 Urethral (Armenta) 2400 1750 Other: # Bowel Movements 0 - Physical Exam Head: Positive for: Atraumatic, Normocephalic. Negative for: Ecchymosis, Abrasion, Laceration Pupils: Positive for: Non-Reactive, Pinpoint. Negative for: PERRL Extroacular Muscles: Positive for: Other (unable to assess due to not following commands, not moving eyes spontaneously, no avoidance of direct light challenge for PERRL assessment; decreased intermittent fluttering of eyelids, eyes remain gazing downward, No doll eyes). Negative for: EOMI Conjunctiva: Negative for: Injected, Icteric Mouth: Positive for: Moist Mucous Membranes, Other (Bite guard in place, ETT absent). Negative for: Drooling Nose (External): Positive for: Atraumatic, Other (NGT in place, no more coffee- ground colored drainage noted). Negative for: Abrasion, Contusion, Laceration Neck: Positive for: Trachea Midline, Other (Trach in place). Negative for: JVD , Lymphadenopathy Respiratory/Chest: Positive for: Clear to Auscultation, Good Air Exchange, Rales (mild-moderate rales in all breath segovia, unchanged). Negative for: Accessory Muscle Use, Wheezes, Tachypneic Cardiovascular: Positive for: Normal S1, S2, Tachycardic (120's-130's on bedside monitor). Negative for: Murmurs, Irregular Rhythm Abdomen: Positive for: Feeding Tubes (Gastrostomy tube in place, covered with bandaging). Negative for: Distention (obese but not distended, soft on palpation, no palpable masses or pulsatile masses), Normal Bowel Sounds ( diminished but present bowel sounds, unchanged from multiple prior exams), Mass/ Organomegaly Upper Extremity: Positive for: Normal Inspection. Negative for: Cyanosis, Edema , Normal ROM, NORMAL PULSES (faintly palpable radials +1), Swelling, Erythema, Deformity Lower Extremity: Positive for: Normal Inspection. Negative for: Edema, NORMAL PULSES (unable to palpate bilateral dorsalis pedis or posterior tibials), Cyanosis, Swelling, Erythema, Deformity Neurological: Positive for: Other (intubated and sedated, now off paralytics for ~12 hrs). Negative for: GCS=15 (GCS 3 (E1 V1t M1)), CN II-XII Intact, Speech Normal, Motor Func Grossly Intact Skin: Positive for: Warm, Dry, Normal Color. Negative for: Rashes Psychiatric: Positive for: Other (sedated and intubated, unable to assess). Negative for: Alert, Oriented x 3, Normal Insight, Normal Concentration, Normal Affect, Normal Mood - Medications Active Medications: Active Medications Generic Name Dose Route Start Last Admin Trade Name Freq PRN Reason Stop Dose Admin Acetaminophen 325 mg 03/22/17 20:47 03/26/17 08:36 Tylenol 325 Mg Supp RC 325 mg Q4H PRN Administration Fever >100.4 F Albuterol/Ipratropium 3 ml 03/13/17 15:07 03/13/17 15:45 Duoneb 3 Mg/0.5 Mg (3 Ml) Ud IH 3 ml Q2H PRN Administration Shortness of Breath Albuterol/Ipratropium 3 ml 03/13/17 20:00 03/26/17 07:07 Duoneb 3 Mg/0.5 Mg (3 Ml) Ud IH 3 ml [id number] MARICHUY Administration Chlorhexidine Gluconate 15 ml 03/13/17 10:00 03/25/17 18:12 Peridex PO Not Given BID MARICHUY Propofol 1,000 mg in 100 mls @ 3.674 mls/hr 03/12/17 07:41 03/26/17 09:34 Diprivan IV 50 mcg/kg/min .Q24H PRN 36.741 mls/hr TITRATE PER MD ORDER Administration Protocol 5 MCG/KG/MIN Potassium Chloride 40 meq/ 1,020 mls @ 100 mls/hr 03/17/17 21:40 03/25/17 07: 08 Sodium Chloride IV 100 mls/hr .[id number] MARICHUY Administration Phenytoin 100 mg/ Sodium 52 mls @ 104 mls/hr 03/18/17 10:00 03/25/17 17:58 Chloride IVPB 104 mls/hr TID MARICHUY Administration Metronidazole 500 mg in 100 mls @ 100 mls/hr 03/20/17 14:00 03/26/17 06:29 Flagyl IVPB 03/28/17 14:01 100 mls/hr Q8 MARICHUY Administration Protocol Valproate Sodium 500 mg/ 105 mls @ 100 mls/hr 03/21/17 14:00 03/26/17 06:27 Sodium Chloride IVPB 100 mls/hr Q8 MARICHUY Administration Midazolam 100 mg/100ml in NS 100 mg in 100 mls @ 20 mls/hr 03/21/17 17:30 06:53 Midazolam 100 Mg/100ml In Ns IV 50 mg/hr .Q5H PRN 50 mls/hr Sedation Administration Protocol 20 MG/HR Vancomycin HCl 1 gm in 250 mls @ 167 mls/hr 03/23/17 09:45 03/25/17 21:13 Vancomycin 1gm IVPB 167 mls/hr Q12H MARICHUY Administration Protocol Levetiracetam 1,500 mg/ Sodium 115 mls @ 460 mls/hr 03/24/17 15:20 03/25/17 22:23 Chloride IV 460 mls/hr Q12 MARICHUY Administration Fentanyl Citrate 1,000 mcg in 100 mls @ 2 mls/hr 03/25/17 18:43 03/26/17 08: 21 Fentanyl Citrate/Sodium Chloride 1 Mg/100 Ml IV 20 mcg/hr .Q24H PRN 2 mls/hr TITRATE PER MD ORDER Administration Protocol 20 MCG/HR Potassium Chloride 20 meq in 100 mls @ 50 mls/hr 03/26/17 08:15 Potassium Chloride 20 Meq/100 Ml IVPB 03/26/17 12:14 Q2H MARICHUY Magnesium Sulfate 2 gm/ Sodium 104 mls @ 52 mls/hr 03/26/17 10:32 Chloride IVPB 03/26/17 12:29 Q3H MARICHUY Magnesium Oxide 400 mg 03/26/17 10:45 Mag-Ox PO BID MARICHUY Metoprolol Tartrate 5 mg 03/21/17 16:38 03/26/17 08:31 Lopressor IVP 5 mg Q4 PRN Administration sbp>160 or HR > 130 BPM Metoprolol Tartrate 12.5 mg 03/24/17 13:15 03/25/17 18:05 Lopressor PO 12.5 mg BID MARICHUY Administration Pantoprazole Sodium 40 mg 03/20/17 22:00 03/26/17 08:36 Protonix Inj IVP 40 mg Q12 MARICHUY Administration - Patient Studies Lab Studies: Microbiology Studies 03/20/17 13:30 Blood Culture - Final Blood NO GROWTH AFTER 5 DAYS Gram Stain - Final TEST NOT PERFORMED 03/20/17 13:30 Blood Culture - Final Blood NO GROWTH AFTER 5 DAYS Gram Stain - Final TEST NOT PERFORMED 03/23/17 12:00 Blood Culture - Preliminary Blood NO GROWTH AFTER 48 HOURS 03/23/17 10:15 Blood Culture - Preliminary Blood NO GROWTH AFTER 48 HOURS Lab Studies 03/26/17 03/26/17 03/26/17 Range/Units Unknown 05:20 05:20 WBC 11.0 (4.5-11.0) 10^3/ul RBC 3.02 L (3.5-6.1) 10^6/uL Hgb 9.1 L (14.0-18.0) g/dL Hct 27.0 L (42.0-52.0) % MCV 89.4 (80.0-105.0) fl MCH 30.1 (25.0-35.0) pg MCHC 33.7 (31.0-37.0) g/dl RDW 14.0 (11.5-14.5) % Plt Count 345 (120.0-450.0) 10^3/uL MPV 9.9 (7.0-11.0) fl pCO2 (35-45) mm/Hg pO2 (80-100) mm/Hg HCO3 (21-28) mmol/L ABG pH (7.35-7.45) ABG Total CO2 (22-28) mmol.L ABG O2 Saturation (95-98) % ABG Base Excess (-2.0-3.0) mmol/L ABG Potassium (3.6-5.2) mmol/L Sodium 142 (132-148) mmol/L Chloride 105 (98-107) mmol/L Glucose (75-110) mg/dl Lactate (0.7-2.1) mmol/L Mechanical Rate FiO2 % Tidal Volume PEEP Potassium 3.4 L (3.6-5.0) mmol/L Carbon Dioxide 25 (21-33) mmol/L Anion Gap 15 (10-20) BUN 6 L (7-21) mg/dL Creatinine 0.6 L (0.8-1.5) mg/dL Est GFR ( Amer) > 60 Est GFR (Non-Af Amer) > 60 POC Glucose (mg/dL) (65-110) mg/dL Random Glucose 106 (70-110) mg/dL Serum Osmolality (272-300) mosm/kg Calcium 8.7 (8.4-10.5) mg/dL Phosphorus 3.7 (2.5-4.5) mg/dL Magnesium 1.3 L (1.7-2.2) mg/dL Total Bilirubin 1.7 H (0.2-1.3) mg/dL AST 76 H (17-59) U/L ALT 60 H (7-56) U/L Alkaline Phosphatase 131 H (38-126) U/L Total Protein 7.5 (5.8-8.3) g/dL Albumin 3.4 (3.0-4.8) g/dL Globulin 4.1 gm/dL Albumin/Globulin Ratio 0.8 L (1.1-1.8) Arterial Blood Potassium (3.6-5.2) mmol/L Urine Color (YELLOW) Urine Appearance (CLEAR) Urine pH (4.7-8.0) Ur Specific Wil[place] (1.005-1.035) Urine Protein (<30 mg/dL) mg/dL Urine Glucose (UA) (NEGATIVE) mg/dL Urine Ketones (NEGATIVE) mg/dL Urine Blood (NEGATIVE) Urine Nitrate (NEGATIVE) Urine Bilirubin (NEGATIVE) Urine Urobilinogen (<1 E.U./dL) E.U./dL Ur Leukocyte Esterase (NEGATIVE) Marisela/uL Urine RBC (0-2) /hpf Urine WBC (0-6) /hpf Phenytoin 10 (10-20) ug/mL 03/26/17 03/25/17 03/25/17 Range/Units 05:10 21:23 15:16 WBC (4.5-11.0) 10^3/ul RBC (3.5-6.1) 10^6/uL Hgb (14.0-18.0) g/dL Hct (42.0-52.0) % MCV (80.0-105.0) fl MCH (25.0-35.0) pg MCHC (31.0-37.0) g/dl RDW (11.5-14.5) % Plt Count (120.0-450.0) 10^3/uL MPV (7.0-11.0) fl pCO2 39 (35-45) mm/Hg pO2 95.0 (80-100) mm/Hg HCO3 23.1 (21-28) mmol/L ABG pH 7.38 (7.35-7.45) ABG Total CO2 24.3 (22-28) mmol.L ABG O2 Saturation 98.0 (95-98) % ABG Base Excess -1.8 (-2.0-3.0) mmol/L ABG Potassium 3.2 L (3.6-5.2) mmol/L Sodium 140.0 (132-148) mmol/L Chloride 107.0 (98-107) mmol/L Glucose 103 (75-110) mg/dl Lactate 0.7 (0.7-2.1) mmol/L Mechanical Rate 15 FiO2 40.0 % Tidal Volume 400 PEEP 8 Potassium (3.6-5.0) mmol/L Carbon Dioxide (21-33) mmol/L Anion Gap (10-20) BUN (7-21) mg/dL Creatinine (0.8-1.5) mg/dL Est GFR ( Amer) Est GFR (Non-Af Amer) POC Glucose (mg/dL) 107 75 (65-110) mg/dL Random Glucose (70-110) mg/dL Serum Osmolality (272-300) mosm/kg Calcium (8.4-10.5) mg/dL Phosphorus (2.5-4.5) mg/dL Magnesium (1.7-2.2) mg/dL Total Bilirubin (0.2-1.3) mg/dL AST (17-59) U/L ALT (7-56) U/L Alkaline Phosphatase (38-126) U/L Total Protein (5.8-8.3) g/dL Albumin (3.0-4.8) g/dL Globulin gm/dL Albumin/Globulin Ratio (1.1-1.8) Arterial Blood Potassium 3.2 L (3.6-5.2) mmol/L Urine Color (YELLOW) Urine Appearance (CLEAR) Urine pH (4.7-8.0) Ur Specific Wil[place] (1.005-1.035) Urine Protein (<30 mg/dL) mg/dL Urine Glucose (UA) (NEGATIVE) mg/dL Urine Ketones (NEGATIVE) mg/dL Urine Blood (NEGATIVE) Urine Nitrate (NEGATIVE) Urine Bilirubin (NEGATIVE) Urine Urobilinogen (<1 E.U./dL) E.U./dL Ur Leukocyte Esterase (NEGATIVE) Marisela/uL Urine RBC (0-2) /hpf Urine WBC (0-6) /hpf Phenytoin (10-20) ug/mL 03/25/17 03/25/17 03/25/17 Range/Units 14:00 10:47 08:30 WBC (4.5-11.0) 10^3/ul RBC (3.5-6.1) 10^6/uL Hgb (14.0-18.0) g/dL Hct (42.0-52.0) % MCV (80.0-105.0) fl MCH (25.0-35.0) pg MCHC (31.0-37.0) g/dl RDW (11.5-14.5) % Plt Count (120.0-450.0) 10^3/uL MPV (7.0-11.0) fl pCO2 (35-45) mm/Hg pO2 (80-100) mm/Hg HCO3 (21-28) mmol/L ABG pH (7.35-7.45) ABG Total CO2 (22-28) mmol.L ABG O2 Saturation (95-98) % ABG Base Excess (-2.0-3.0) mmol/L ABG Potassium (3.6-5.2) mmol/L Sodium (132-148) mmol/L Chloride (98-107) mmol/L Glucose (75-110) mg/dl Lactate (0.7-2.1) mmol/L Mechanical Rate FiO2 % Tidal Volume PEEP Potassium (3.6-5.0) mmol/L Carbon Dioxide (21-33) mmol/L Anion Gap (10-20) BUN (7-21) mg/dL Creatinine (0.8-1.5) mg/dL Est GFR ( Amer) Est GFR (Non-Af Amer) POC Glucose (mg/dL) (65-110) mg/dL Random Glucose (70-110) mg/dL Serum Osmolality 290 (272-300) mosm/kg Calcium (8.4-10.5) mg/dL Phosphorus (2.5-4.5) mg/dL Magnesium 1.9 (1.7-2.2) mg/dL Total Bilirubin (0.2-1.3) mg/dL AST (17-59) U/L ALT (7-56) U/L Alkaline Phosphatase (38-126) U/L Total Protein (5.8-8.3) g/dL Albumin (3.0-4.8) g/dL Globulin gm/dL Albumin/Globulin Ratio (1.1-1.8) Arterial Blood Potassium (3.6-5.2) mmol/L Urine Color Yellow (YELLOW) Urine Appearance Clear (CLEAR) Urine pH 6.0 (4.7-8.0) Ur Specific Wilton 1.015 (1.005-1.035) Urine Protein Negative (<30 mg/dL) mg/dL Urine Glucose (UA) Negative (NEGATIVE) mg/dL Urine Ketones 40 H (NEGATIVE) mg/dL Urine Blood Small H (NEGATIVE) Urine Nitrate Negative (NEGATIVE) Urine Bilirubin Small H (NEGATIVE) Urine Urobilinogen 0.2 (<1 E.U./dL) E.U./dL Ur Leukocyte Esterase Negative (NEGATIVE) Marisela/uL Urine RBC 10 - 15 (0-2) /hpf Urine WBC Negative (0-6) /hpf Phenytoin (10-20) ug/mL Laboratory Results - last 24 hr 03/25/17 03/25/17 03/25/17 08:30 10:47 14:00 WBC RBC Hgb Hct MCV MCH MCHC RDW Plt Count MPV pCO2 pO2 HCO3 ABG pH ABG Total CO2 ABG O2 Saturation ABG Base Excess ABG Potassium Sodium Chloride Glucose Lactate Mechanical Rate FiO2 Tidal Volume PEEP Potassium Carbon Dioxide Anion Gap BUN Creatinine Est GFR ( Amer) Est GFR (Non-Af Amer) POC Glucose (mg/dL) Random Glucose Serum Osmolality 290 Calcium Phosphorus Magnesium 1.9 Total Bilirubin AST ALT Alkaline Phosphatase Total Protein Albumin Globulin Albumin/Globulin Ratio Arterial Blood Potassium Urine Color Yellow Urine Appearance Clear Urine pH 6.0 Ur Specific Wil[place] 1.015 Urine Protein Negative Urine Glucose (UA) Negative Urine Ketones 40 H Urine Blood Small H Urine Nitrate Negative Urine Bilirubin Small H Urine Urobilinogen 0.2 Ur Leukocyte Esterase Negative Urine RBC 10 - 15 Urine WBC Negative Phenytoin 03/25/17 03/25/17 03/26/17 15:16 21:23 05:10 WBC RBC Hgb Hct MCV MCH MCHC RDW Plt Count MPV pCO2 39 pO2 95.0 HCO3 23.1 ABG pH 7.38 ABG Total CO2 24.3 ABG O2 Saturation 98.0 ABG Base Excess -1.8 ABG Potassium 3.2 L Sodium 140.0 Chloride 107.0 Glucose 103 Lactate 0.7 Mechanical Rate 15 FiO2 40.0 Tidal Volume 400 PEEP 8 Potassium Carbon Dioxide Anion Gap BUN Creatinine Est GFR ( Amer) Est GFR (Non-Af Amer) POC Glucose (mg/dL) 75 107 Random Glucose Serum Osmolality Calcium Phosphorus Magnesium Total Bilirubin AST ALT Alkaline Phosphatase Total Protein Albumin Globulin Albumin/Globulin Ratio Arterial Blood Potassium 3.2 L Urine Color Urine Appearance Urine pH Ur Specific Wil[place] Urine Protein Urine Glucose (UA) Urine Ketones Urine Blood Urine Nitrate Urine Bilirubin Urine Urobilinogen Ur Leukocyte Esterase Urine RBC Urine WBC Phenytoin 03/26/17 03/26/17 03/26/17 05:20 05:20 Unknown WBC 11.0 RBC 3.02 L Hgb 9.1 L Hct 27.0 L MCV 89.4 MCH 30.1 MCHC 33.7 RDW 14.0 Plt Count 345 MPV 9.9 pCO2 pO2 HCO3 ABG pH ABG Total CO2 ABG O2 Saturation ABG Base Excess ABG Potassium Sodium 142 Chloride 105 Glucose Lactate Mechanical Rate FiO2 Tidal Volume PEEP Potassium 3.4 L Carbon Dioxide 25 Anion Gap 15 BUN 6 L Creatinine 0.6 L Est GFR ( Amer) > 60 Est GFR (Non-Af Amer) > 60 POC Glucose (mg/dL) Random Glucose 106 Serum Osmolality Calcium 8.7 Phosphorus 3.7 Magnesium 1.3 L Total Bilirubin 1.7 H AST 76 H ALT 60 H Alkaline Phosphatase 131 H Total Protein 7.5 Albumin 3.4 Globulin 4.1 Albumin/Globulin Ratio 0.8 L Arterial Blood Potassium Urine Color Urine Appearance Urine pH Ur Specific [place] Urine Protein Urine Glucose (UA) Urine Ketones Urine Blood Urine Nitrate Urine Bilirubin Urine Urobilinogen Ur Leukocyte Esterase Urine RBC Urine WBC Phenytoin 10 Fingerstick Blood Sugar Results: 72 Review of Systems - Review of Systems Systems not reviewed;Unavailable: Altered Mental Status Critical Care Progress Note - Nutrition Nutrition: Nutrition Category Date Time Status NPO Diet [DIET] Diets 03/14/17 Breakfast Ordered Assessment/Plan - Assessment and Plan (Free Text) Assessment: This is a 36 yo M with past medical history of substance abuse, depression, bipolar disorder, hypertension, anxiety disorder that presented with cardiac arrest in the field (downtime unknown) due to multi-drug overdose, with two further episodes of cardiac arrest on arrival, and witnessed seizure prior to initiation of increased sedation and paralytics. Remains off paralytics, but remains on high doses of sedatives due to multiple witnessed seizures, likely Status Epilepticus. Have been unable to arrange a transfer to center with 24- hour continuous EEG monitoring and possible phenobarbitol coma; denied at [facility] and [facility], unable to reach [facility]. S/p Trach/G-tube placement POD#1. Overall prognosis is poor. Plan: Neuro: -continuing to seize despite sedation with Propofol/Versed/Fentanyl and seizure ppx with Dilantin/Keppra/Valproic Acid, likely status epilepticus -At this point, next intervention would be barbiturate coma, which requires 24- hour continuous EEG monitoring; [facility] and [facility] have denied for transfer, unable to reach [facility] -Phenytoin level today 10, given another 1g bolus, repeat level tomorrow -MRI brain notable for likely anoxic injury in thalamix area bilaterally -Repeat EEG ordered today, pending read -No longer actively cooling, maintain normothermia -Urine toxicology on admission positive for opiates, barbiturates and benzos -Neurology consulted - Dr. Rene, appreciate all recs; poor prognosis given burst suppression pattern on EEG with seizure when weaned from sedation, likely status epilepticus given persisting seizures, needs 24-hour EEG monitoring for Status, which will require a transfer -Poison control following -S/p Trach/G-tube POD#1 Pulm: -Satting 95-100%, ABG this AM reviewed, improved pO2 otherwise unchanged, continue to monitor -CXR this AM reviewed, unchanged as compared to yesterday -Currently on PRVC, tolerating pressure support, continue to monitor Cardio: -Off all pressor support >7 days, maintaining MAP > 65 consistently -Tachycardic 100's-130's x6 days, possibly rebound from precedex d/c, more likely 2/2 status epilepticus -Troponins increased from <0.01 to 0.13 on admission -most recent EKG 03/13, notable for sinus halina to 48 and prolonged QTc at 537 ( unsurprising in setting of multi-drug abuse) -Cardiology consulted - Dr. Anderson; spoke with Dr. Anderson, no additional recs at this time, Tachy is likely physiologic -Echo notable for EF 54%, normal size/wall thickness LV, flattened septum, mild Pulm HTN/TR, mild RV dilation GI: -NPO -NGT in place, will removed when cleared to use G-tube by surgery -GI prophylaxis with protonix -LFTs improving -s/p x3 dosing of Acetadote as per Poison Control, no additional doses ordered -coffee-ground emesis on 03/20, 600cc drainage after NGT set to suction; no free air under the diaphragm or obstruction on Abd CXR; H Pylori antigen test ordered, Protonix BID Renal: -Cr stable at 0.6, OTONIEL resolved -Hypernatremia resolved -Will continue to monitor and treat electrolyte abnormalities as indicated; persistently low K and Mag requiring chronic repletion -Monitor I's and O's -Nephro following, appreciate all recs Endo: -Fingersticks q4h -Maintain euglycemia between 140-180's ID: -multiple Blood and urine cultures drawn, remain negative -Most recent sputum (03/16) positive for light growth yeast, all other sputum cultures negative -Patient was empirically covered with Cefepime, Levofloxacin, and Vanco; all now d/c; currently on Flagyl (day 6) for empiric H Pylori coverage, will d/c and observe -Less febrile overnight, Tmax 101F -Ofirmev for fevers, new blood/urine/sputum cx negative at 72hrs, likely neuro fevers Heme: -Hgb 9.1, stool occult negative, iron panel wnl -SCDs for DVT ppx -Coags stable, last INR 1.10 Dispo: ICU, intubated/sedated, s/p EEG with burst-suppression pattern, s/p GI bleed suspected 2/2 ulceration from NGT; likely Status Epilepticus, requires 24- hour EEG monitoring and likely Barbiturate coma, denied transfer to [facility], unable to contact [facility]; prognosis is very poor, Trach/ G-tube POD#1 FEN: NPO, pending feeds when G-tube cleared for use Access: Peripheral IVs Consults: Neuro, Cardio, Nephro, Poison Control, Surgery Ppx: Protonix covers for GI, SCDs for DVT Patient seen, examined, and reviewed with attending, Dr. Bush <Rachelle JONES,[facility] - Last Filed: 03/26/17 15:34> CCU Objective - Vital Signs / Intake & Output Vital Signs (Last 4 hours): Vital Signs Temp Pulse Resp BP Pulse Ox 03/26/17 14:30 106 H 107/51 L 98 03/26/17 14:20 109 H 98 03/26/17 14:10 110 H 98 03/26/17 14:00 115 H 124/57 L 99 03/26/17 13:50 118 H 100 03/26/17 13:40 119 H 99 03/26/17 13:33 124 H 137/67 03/26/17 13:30 121 H 137/67 99 03/26/17 13:20 123 H 100 03/26/17 13:10 124 H 100 03/26/17 13:00 127 H 142/70 100 03/26/17 12:50 127 H 100 03/26/17 12:40 125 H 100 03/26/17 12:30 126 H 129/69 100 03/26/17 12:20 131 H 100 03/26/17 12:10 124 H 100 03/26/17 12:00 100.8 F H 123 H 20 134/61 100 03/26/17 11:50 124 H 100 03/26/17 11:40 127 H 100 Intake and Output (Last 8hrs): Intake & Output 03/26/17 03/26/17 03/26/17 06:59 14:59 22:59 Intake Total 600 1400 Output Total 2200 Balance 600 -800 Intake: IV 600 1400 Left Antecubital 1000 Oral 0 Tube Feeding 0 Output: Gastric Amount 450 Nares 250 Stomach 200 Urine 1750 Urethral (Armenta) 1750 Other: # Bowel Movements 0 - Medications Active Medications: Active Medications Generic Name Dose Route Start Last Admin Trade Name Freq PRN Reason Stop Dose Admin Acetaminophen 325 mg 03/22/17 20:47 03/26/17 08:36 Tylenol 325 Mg Supp RC 325 mg Q4H PRN Administration Fever >100.4 F Albuterol/Ipratropium 3 ml 03/13/17 15:07 03/13/17 15:45 Duoneb 3 Mg/0.5 Mg (3 Ml) Ud IH 3 ml Q2H PRN Administration Shortness of Breath Albuterol/Ipratropium 3 ml 03/13/17 20:00 03/26/17 13:44 Duoneb 3 Mg/0.5 Mg (3 Ml) Ud IH 3 ml [id number] MARICHUY Administration Chlorhexidine Gluconate 15 ml 03/13/17 10:00 03/26/17 13:34 Peridex PO 15 ml BID MARICHUY Administration Propofol 1,000 mg in 100 mls @ 3.674 mls/hr 03/12/17 07:41 03/26/17 09:34 Diprivan IV 50 mcg/kg/min .Q24H PRN 36.741 mls/hr TITRATE PER MD ORDER Administration Protocol 5 MCG/KG/MIN Potassium Chloride 40 meq/ 1,020 mls @ 100 mls/hr 03/17/17 21:40 03/25/17 07: 08 Sodium Chloride IV 100 mls/hr .[id number] MARICHUY Administration Phenytoin 100 mg/ Sodium 52 mls @ 104 mls/hr 03/18/17 10:00 03/26/17 12:32 Chloride IVPB 104 mls/hr TID MARICHUY Administration Metronidazole 500 mg in 100 mls @ 100 mls/hr 03/20/17 14:00 03/26/17 06:29 Flagyl IVPB 03/28/17 14:01 100 mls/hr Q8 MARICHUY Administration Protocol Valproate Sodium 500 mg/ 105 mls @ 100 mls/hr 03/21/17 14:00 03/26/17 15:20 Sodium Chloride IVPB 100 mls/hr Q8 MARICHUY Administration Midazolam 100 mg/100ml in NS 100 mg in 100 mls @ 20 mls/hr 03/21/17 17:30 13:14 Midazolam 100 Mg/100ml In Ns IV 50 mg/hr .Q5H PRN 50 mls/hr Sedation Administration Protocol 20 MG/HR Vancomycin HCl 1 gm in 250 mls @ 167 mls/hr 03/23/17 09:45 03/26/17 13:37 Vancomycin 1gm IVPB 167 mls/hr Q12H [facility] Administration Protocol Levetiracetam 1,500 mg/ Sodium 115 mls @ 460 mls/hr 03/24/17 15:20 03/26/17 11:44 Chloride IV 460 mls/hr Q12 [facility] Administration Fentanyl Citrate 1,000 mcg in 100 mls @ 2 mls/hr 03/25/17 18:43 03/26/17 13: 13 Fentanyl Citrate/Sodium Chloride 1 Mg/100 Ml IV 20 mcg/hr .Q24H PRN 2 mls/hr TITRATE PER MD ORDER Administration Protocol 20 MCG/HR Magnesium Oxide 400 mg 03/26/17 10:45 03/26/17 13:33 Mag-Ox PO 400 mg BID [facility] Administration Metoprolol Tartrate 5 mg 03/21/17 16:38 03/26/17 08:31 Lopressor IVP 5 mg Q4 PRN Administration sbp>160 or HR > 130 BPM Metoprolol Tartrate 12.5 mg 03/24/17 13:15 03/26/17 13:33 Lopressor PO 12.5 mg BID [facility] Administration Pantoprazole Sodium 40 mg 03/20/17 22:00 03/26/17 10:43 Protonix Inj IVP Not Given Q12 [facility]UY - Patient Studies Lab Studies: Microbiology Studies 03/23/17 12:00 Blood Culture - Preliminary Blood NO GROWTH AFTER 3 DAYS 03/23/17 10:15 Blood Culture - Preliminary Blood NO GROWTH AFTER 3 DAYS 03/20/17 13:30 Blood Culture - Final Blood NO GROWTH AFTER 5 DAYS Gram Stain - Final TEST NOT PERFORMED 03/20/17 13:30 Blood Culture - Final Blood NO GROWTH AFTER 5 DAYS Gram Stain - Final TEST NOT PERFORMED Lab Studies 03/26/17 03/26/17 03/26/17 Range/Units Unknown 08:34 05:20 WBC (4.5-11.0) 10^3/ul RBC (3.5-6.1) 10^6/uL Hgb (14.0-18.0) g/dL Hct (42.0-52.0) % MCV (80.0-105.0) fl MCH (25.0-35.0) pg MCHC (31.0-37.0) g/dl RDW (11.5-14.5) % Plt Count (120.0-450.0) 10^3/uL MPV (7.0-11.0) fl pCO2 (35-45) mm/Hg pO2 (80-100) mm/Hg HCO3 (21-28) mmol/L ABG pH (7.35-7.45) ABG Total CO2 (22-28) mmol.L ABG O2 Saturation (95-98) % ABG Base Excess (-2.0-3.0) mmol/L ABG Potassium (3.6-5.2) mmol/L Sodium 142 (132-148) mmol/L Chloride 105 (98-107) mmol/L Glucose (75-110) mg/dl Lactate (0.7-2.1) mmol/L Mechanical Rate FiO2 % Tidal Volume PEEP Potassium 3.4 L (3.6-5.0) mmol/L Carbon Dioxide 25 (21-33) mmol/L Anion Gap 15 (10-20) BUN 6 L (7-21) mg/dL Creatinine 0.6 L (0.8-1.5) mg/dL Est GFR ( Amer) > 60 Est GFR (Non-Af Amer) > 60 POC Glucose (mg/dL) 102 (65-110) mg/dL Random Glucose 106 (70-110) mg/dL Serum Osmolality (272-300) mosm/kg Calcium 8.7 (8.4-10.5) mg/dL Phosphorus 3.7 (2.5-4.5) mg/dL Magnesium 1.3 L (1.7-2.2) mg/dL Total Bilirubin 1.7 H (0.2-1.3) mg/dL AST 76 H (17-59) U/L ALT 60 H (7-56) U/L Alkaline Phosphatase 131 H (38-126) U/L Total Protein 7.5 (5.8-8.3) g/dL Albumin 3.4 (3.0-4.8) g/dL Globulin 4.1 gm/dL Albumin/Globulin Ratio 0.8 L (1.1-1.8) Arterial Blood Potassium (3.6-5.2) mmol/L Phenytoin 10 (10-20) ug/mL 03/26/17 03/26/17 03/26/17 Range/Units 05:20 05:10 03:17 WBC 11.0 (4.5-11.0) 10^3/ul RBC 3.02 L (3.5-6.1) 10^6/uL Hgb 9.1 L (14.0-18.0) g/dL Hct 27.0 L (42.0-52.0) % MCV 89.4 (80.0-105.0) fl MCH 30.1 (25.0-35.0) pg MCHC 33.7 (31.0-37.0) g/dl RDW 14.0 (11.5-14.5) % Plt Count 345 (120.0-450.0) 10^3/uL MPV 9.9 (7.0-11.0) fl pCO2 39 (35-45) mm/Hg pO2 95.0 (80-100) mm/Hg HCO3 23.1 (21-28) mmol/L ABG pH 7.38 (7.35-7.45) ABG Total CO2 24.3 (22-28) mmol.L ABG O2 Saturation 98.0 (95-98) % ABG Base Excess -1.8 (-2.0-3.0) mmol/L ABG Potassium 3.2 L (3.6-5.2) mmol/L Sodium 140.0 (132-148) mmol/L Chloride 107.0 (98-107) mmol/L Glucose 103 (75-110) mg/dl Lactate 0.7 (0.7-2.1) mmol/L Mechanical Rate 15 FiO2 40.0 % Tidal Volume 400 PEEP 8 Potassium (3.6-5.0) mmol/L Carbon Dioxide (21-33) mmol/L Anion Gap (10-20) BUN (7-21) mg/dL Creatinine (0.8-1.5) mg/dL Est GFR ( Amer) Est GFR (Non-Af Amer) POC Glucose (mg/dL) 105 (65-110) mg/dL Random Glucose (70-110) mg/dL Serum Osmolality (272-300) mosm/kg Calcium (8.4-10.5) mg/dL Phosphorus (2.5-4.5) mg/dL Magnesium (1.7-2.2) mg/dL Total Bilirubin (0.2-1.3) mg/dL AST (17-59) U/L ALT (7-56) U/L Alkaline Phosphatase (38-126) U/L Total Protein (5.8-8.3) g/dL Albumin (3.0-4.8) g/dL Globulin gm/dL Albumin/Globulin Ratio (1.1-1.8) Arterial Blood Potassium 3.2 L (3.6-5.2) mmol/L Phenytoin (10-20) ug/mL 03/25/17 03/25/17 Range/Units 21:23 08:30 WBC (4.5-11.0) 10^3/ul RBC (3.5-6.1) 10^6/uL Hgb (14.0-18.0) g/dL Hct (42.0-52.0) % MCV (80.0-105.0) fl MCH (25.0-35.0) pg MCHC (31.0-37.0) g/dl RDW (11.5-14.5) % Plt Count (120.0-450.0) 10^3/uL MPV (7.0-11.0) fl pCO2 (35-45) mm/Hg pO2 (80-100) mm/Hg HCO3 (21-28) mmol/L ABG pH (7.35-7.45) ABG Total CO2 (22-28) mmol.L ABG O2 Saturation (95-98) % ABG Base Excess (-2.0-3.0) mmol/L ABG Potassium (3.6-5.2) mmol/L Sodium (132-148) mmol/L Chloride (98-107) mmol/L Glucose (75-110) mg/dl Lactate (0.7-2.1) mmol/L Mechanical Rate FiO2 % Tidal Volume PEEP Potassium (3.6-5.0) mmol/L Carbon Dioxide (21-33) mmol/L Anion Gap (10-20) BUN (7-21) mg/dL Creatinine (0.8-1.5) mg/dL Est GFR ( Amer) Est GFR (Non-Af Amer) POC Glucose (mg/dL) 107 (65-110) mg/dL Random Glucose (70-110) mg/dL Serum Osmolality 290 (272-300) mosm/kg Calcium (8.4-10.5) mg/dL Phosphorus (2.5-4.5) mg/dL Magnesium (1.7-2.2) mg/dL Total Bilirubin (0.2-1.3) mg/dL AST (17-59) U/L ALT (7-56) U/L Alkaline Phosphatase (38-126) U/L Total Protein (5.8-8.3) g/dL Albumin (3.0-4.8) g/dL Globulin gm/dL Albumin/Globulin Ratio (1.1-1.8) Arterial Blood Potassium (3.6-5.2) mmol/L Phenytoin (10-20) ug/mL Laboratory Results - last 24 hr 03/25/17 03/25/17 03/26/17 08:30 21:23 03:17 WBC RBC Hgb Hct MCV MCH MCHC RDW Plt Count MPV pCO2 pO2 HCO3 ABG pH ABG Total CO2 ABG O2 Saturation ABG Base Excess ABG Potassium Sodium Chloride Glucose Lactate Mechanical Rate FiO2 Tidal Volume PEEP Potassium Carbon Dioxide Anion Gap BUN Creatinine Est GFR ( Amer) Est GFR (Non-Af Amer) POC Glucose (mg/dL) 107 105 Random Glucose Serum Osmolality 290 Calcium Phosphorus Magnesium Total Bilirubin AST ALT Alkaline Phosphatase Total Protein Albumin Globulin Albumin/Globulin Ratio Arterial Blood Potassium Phenytoin 03/26/17 03/26/17 03/26/17 05:10 05:20 05:20 WBC 11.0 RBC 3.02 L Hgb 9.1 L Hct 27.0 L MCV 89.4 MCH 30.1 MCHC 33.7 RDW 14.0 Plt Count 345 MPV 9.9 pCO2 39 pO2 95.0 HCO3 23.1 ABG pH 7.38 ABG Total CO2 24.3 ABG O2 Saturation 98.0 ABG Base Excess -1.8 ABG Potassium 3.2 L Sodium 140.0 142 Chloride 107.0 105 Glucose 103 Lactate 0.7 Mechanical Rate 15 FiO2 40.0 Tidal Volume 400 PEEP 8 Potassium 3.4 L Carbon Dioxide 25 Anion Gap 15 BUN 6 L Creatinine 0.6 L Est GFR ( Amer) > 60 Est GFR (Non-Af Amer) > 60 POC Glucose (mg/dL) Random Glucose 106 Serum Osmolality Calcium 8.7 Phosphorus 3.7 Magnesium 1.3 L Total Bilirubin 1.7 H AST 76 H ALT 60 H Alkaline Phosphatase 131 H Total Protein 7.5 Albumin 3.4 Globulin 4.1 Albumin/Globulin Ratio 0.8 L Arterial Blood Potassium 3.2 L Phenytoin 03/26/17 03/26/17 08:34 Unknown WBC RBC Hgb Hct MCV MCH MCHC RDW Plt Count MPV pCO2 pO2 HCO3 ABG pH ABG Total CO2 ABG O2 Saturation ABG Base Excess ABG Potassium Sodium Chloride Glucose Lactate Mechanical Rate FiO2 Tidal Volume PEEP Potassium Carbon Dioxide Anion Gap BUN Creatinine Est GFR ( Amer) Est GFR (Non-Af Amer) POC Glucose (mg/dL) 102 Random Glucose Serum Osmolality Calcium Phosphorus Magnesium Total Bilirubin AST ALT Alkaline Phosphatase Total Protein Albumin Globulin Albumin/Globulin Ratio Arterial Blood Potassium Phenytoin 10 Critical Care Progress Note - Nutrition Nutrition: Nutrition Category Date Time Status NPO Diet [DIET] Diets 03/14/17 Breakfast Ordered Attending/Attestation - Attestation I have personally seen and examined this patient.: Yes I have fully participated in the care of the patient.: Yes I have reviewed all pertinent clinical information: Yes Notes (Text): 03/26/17 15:30 36 y/o M w/ Anoxic Brain injury s/p Cardiac arrest w/ Downtime > 10 hrs Status Epilepticus noted x 4 days due to severe anoxic injury confirmed on MRI. On Versed, Porpofol , Keppra, Dilantin and Valproic acid. Plan to wean sedation as tolerated to clinicaly observe seizures. EEG ordered once again today. Several attempts were made to transfer the patient but no acceptance at this point. S/P Trach and PEG placement . Vent settings minimal and tolerated SBT daily. Cardiac consult pending x 6 days s/p cardiac arrest. Prolonged tachycardia . No DVT. ECHo no acute findings. On Lopressor. Poor prognosis. Several family meeting were done with . Full code status. cc time 65 min
--- NOTE | 2017-03-26 11:28 | CP.PCM.PN ---
<Zac Archer - Last Filed: 03/26/17 16:01> Subjective - Date & Time of Evaluation Date of Evaluation: 03/26/17 Time of Evaluation: 07:25 - Subjective Subjective: Patient was seen and examined at bedside. Per nursing no acute events occurred overnight. ROS unobtainable due to current clinical condition. Objective - Vital Signs/Intake and Output Vital Signs (last 24 hours): Temp Pulse Resp BP Pulse Ox 101 F H 131 H 23 157/83 H 100 03/26/17 08:36 03/26/17 10:30 03/26/17 08:00 03/26/17 10:30 03/26/17 10:30 Intake and Output: 03/26/17 03/26/17 06:59 18:59 Intake Total 900 1200 Output Total 2200 Balance 900 -1000 - Medications Medications: Current Medications Acetaminophen (Tylenol 325 Mg Supp) 325 mg RC Q4H PRN PRN Reason: Fever >100.4 F Last Admin: 03/26/17 08:36 Dose: 325 mg Albuterol/Ipratropium (Duoneb 3 Mg/0.5 Mg (3 Ml) Ud) 3 ml IH Q2H PRN PRN Reason: Shortness of Breath Last Admin: 03/13/17 15:45 Dose: 3 ml Albuterol/Ipratropium (Duoneb 3 Mg/0.5 Mg (3 Ml) Ud) 3 ml IH [id number] [facility] Last Admin: 03/26/17 07:07 Dose: 3 ml Chlorhexidine Gluconate (Peridex) 15 ml PO BID [facility] Last Admin: 03/25/17 18:12 Dose: Not Given Propofol (Diprivan) 1,000 mg in 100 mls @ 3.674 mls/hr IV .Q24H PRN; Protocol; 5 MCG/KG/MIN PRN Reason: TITRATE PER MD ORDER Last Admin: 03/26/17 09:34 Dose: 50 mcg/kg/min, 36.741 mls/hr Potassium Chloride 40 meq/ (Sodium Chloride) 1,020 mls @ 100 mls/hr IV .[id number] [facility] Last Admin: 03/25/17 07:08 Dose: 100 mls/hr Phenytoin 100 mg/ Sodium (Chloride) 52 mls @ 104 mls/hr IVPB TID [facility] Last Admin: 03/25/17 17:58 Dose: 104 mls/hr Metronidazole (Flagyl) 500 mg in 100 mls @ 100 mls/hr IVPB Q8 [facility] PRN Reason: Protocol Stop: 03/28/17 14:01 Last Admin: 03/26/17 06:29 Dose: 100 mls/hr Valproate Sodium 500 mg/ (Sodium Chloride) 105 mls @ 100 mls/hr IVPB Q8 [facility] Last Admin: 03/26/17 06:27 Dose: 100 mls/hr Midazolam 100 mg/100ml in NS (Midazolam 100 Mg/100ml In Ns) 100 mg in 100 mls @ 20 mls/hr IV .Q5H PRN; Protocol; 20 MG/HR PRN Reason: Sedation Last Admin: 03/26/17 06:53 Dose: 50 mg/hr, 50 mls/hr Vancomycin HCl (Vancomycin 1gm) 1 gm in 250 mls @ 167 mls/hr IVPB Q12H [facility] PRN Reason: Protocol Last Admin: 03/25/17 21:13 Dose: 167 mls/hr Levetiracetam 1,500 mg/ Sodium (Chloride) 115 mls @ 460 mls/hr IV Q12 [facility] Last Admin: 03/25/17 22:23 Dose: 460 mls/hr Fentanyl Citrate (Fentanyl Citrate/Sodium Chloride 1 Mg/100 Ml) 1,000 mcg in 100 mls @ 2 mls/hr IV .Q24H PRN; Protocol; 20 MCG/HR PRN Reason: TITRATE PER MD ORDER Last Admin: 03/26/17 08:21 Dose: 20 mcg/hr, 2 mls/hr Potassium Chloride (Potassium Chloride 20 Meq/100 Ml) 20 meq in 100 mls @ 50 mls/hr IVPB Q2H [facility] Stop: 03/26/17 12:14 Magnesium Sulfate 2 gm/ Sodium (Chloride) 104 mls @ 52 mls/hr IVPB Q3H [facility] Stop: 03/26/17 12:29 Magnesium Oxide (Mag-Ox) 400 mg PO BID [facility] Metoprolol Tartrate (Lopressor) 5 mg IVP Q4 PRN PRN Reason: sbp>160 or HR > 130 BPM Last Admin: 03/26/17 08:31 Dose: 5 mg Metoprolol Tartrate (Lopressor) 12.5 mg PO BID [facility] Last Admin: 03/25/17 18:05 Dose: 12.5 mg Pantoprazole Sodium (Protonix Inj) 40 mg IVP Q12 [facility] Last Admin: 03/26/17 10:43 Dose: Not Given - Labs Labs: 03/26/17 05:20 03/26/17 05:20 PT 11.9 Seconds (9.9-11.8) H 03/22/17 05:30 INR 1.10 (0.93-1.08) H 03/22/17 05:30 APTT 24.9 Seconds (23.7-30.8) 03/22/17 05:30 - Head Exam Head Exam: ATRAUMATIC, NORMAL INSPECTION, NORMOCEPHALIC - Eye Exam Eye Exam: Normal appearance, PERRL. absent: Periorbital tenderness Pupil Exam: PERRL - ENT Exam ENT Exam: Mucous Membranes Moist, Normal Exam - Neck Exam Additional comments: tracheostomy tube placed. - Respiratory Exam Respiratory Exam: Rhonchi, NORMAL BREATHING PATTERN. absent: Rales - GI/Abdominal Exam GI & Abdominal Exam: Soft, Normal Bowel Sounds Additional comments: G tube in place. - Extremities Exam Extremities Exam: absent: Joint Swelling, Pedal Edema - Neurological Exam Neurological Exam: Altered - Skin Skin Exam: Dry, Intact Assessment and Plan - Assessment and Plan (Free Text) Assessment: 36 y/o male with PMH of substance abuse presents with drug overdose, with multiple substances (+BZDs, barbiturate, Opiates), s/p ROSC after cardiac arrest x 3, unknown initial downtime at home. Tracheostomy and G-tube placement not placed Wednesday by surgery due to hypernatremia. Pt will be rescheduled for Wednesday. Pt also started on d5W and free water via the NGT. Antibiotics will also be stopped at tihs time. Patient began running a fever and Vancomycin added to Flagyl. Patient is s/p tracheostomy and g-tube day#1. Prognosis discussed with family, who are still hopeful patient will have a meaningful recovery. Plan: Neuro: -Patient intubated and unresponsive on sedative medication -Continue to Maintain temp ~92-94F -Neurochecks q2h -Urine toxicology positive for opiates, barbiturates and benzos on admission. -CT Head (-). Seen by Neurology. -Repeat EEG demonstrates anoxic brain injury and poor prognosis. -Brain MRI showed anoxic injury in thalamic region bilaterally. -Will continue to attempt weaning trials as tolerated. -Continue Seizure precautions -Neuro status hard to determine due to sedation. Will reassess once sedation is weaned off. -Overnight patient had two seizures again. Continue Fentanyl 200mcg/hr, Midazolam 30mcg/hr, Propofol 50mcg/hr. Valproate added at 500mcg/hr. Will continue to monitor. -Patient s/p tracheostomy and gastrostomy day #1. -Family agreeable to LTACH. Awaiting approval. Cardio: -EKG reviewed; atrial fibrillation with slow ventricular response (51bpm), nonspecific intraventricular block -Patient sinus tachycardic at 135. Likely 2/2 to seizure activity. Will continue to monitor. Pulm: -Patient Tracheostomy s/p day#1. -CXR showed limited increased in atelectasis and possible infiltrate at left base with none at the right. Negative pleural effusion or pneumothorax. -patient pO2 stable. Patient's FiO2 40%%. Will monitor closely. -Continue serial CXR and ABG. GI: -NPO -NGT -Protonix Renal: -Hypernatremic resolved. Will continue to monitor closely. -Hypokalemia 3.4 today. Will replete as needed. -Magnesium 1.3 today. Will replete at needed. -Will continue to monitor and treat electrolyte abnormalities as indicated -Monitor I's and O's Endo: -Fingersticks q2h -Maintain euglycemia between 140-180's -Stress dose steroids, tapering ID: -Current temperature 101. Blood cx(-)x24 hours. Repeat U/A was negative for UTI. Repeat Urine cx uncollected. Will f/u with results. Continue Tylenol as needed. -Sputum culture grew Yeast species. Will f/u with repeat cultures. GI/DVT Prophylaxis -Protonix/SCD's <Miguel Carlos - Last Filed: 03/27/17 10:31> Objective - Vital Signs/Intake and Output Vital Signs (last 24 hours): Temp Pulse Resp BP Pulse Ox 102 F H 140 H 22 155/70 H 100 03/27/17 09:42 03/27/17 09:41 03/27/17 07:58 03/27/17 09:41 03/27/17 07:58 Intake and Output: 03/27/17 03/27/17 06:59 18:59 Intake Total 2480 Output Total 2000 Balance 480 - Medications Medications: Current Medications Acetaminophen (Tylenol 325 Mg Supp) 325 mg RC Q4H PRN PRN Reason: Fever >100.4 F Last Admin: 03/27/17 09:42 Dose: 325 mg Albuterol/Ipratropium (Duoneb 3 Mg/0.5 Mg (3 Ml) Ud) 3 ml IH Q2H PRN PRN Reason: Shortness of Breath Last Admin: 03/13/17 15:45 Dose: 3 ml Albuterol/Ipratropium (Duoneb 3 Mg/0.5 Mg (3 Ml) Ud) 3 ml IH [id number] [facility] Last Admin: 03/27/17 07:58 Dose: 3 ml Chlorhexidine Gluconate (Peridex) 15 ml PO BID [facility] Last Admin: 03/26/17 17:07 Dose: 15 ml Propofol (Diprivan) 1,000 mg in 100 mls @ 3.674 mls/hr IV .Q24H PRN; Protocol; 5 MCG/KG/MIN PRN Reason: TITRATE PER MD ORDER Last Admin: 03/27/17 06:32 Dose: 50 mcg/kg/min, 36.741 mls/hr Potassium Chloride 40 meq/ (Sodium Chloride) 1,020 mls @ 100 mls/hr IV .[id number] [facility] Last Admin: 03/25/17 07:08 Dose: 100 mls/hr Phenytoin 100 mg/ Sodium (Chloride) 52 mls @ 104 mls/hr IVPB TID [facility] Last Admin: 03/26/17 19:28 Dose: 104 mls/hr Valproate Sodium 500 mg/ (Sodium Chloride) 105 mls @ 100 mls/hr IVPB Q8 [facility] Last Admin: 03/27/17 05:55 Dose: 100 mls/hr Midazolam 100 mg/100ml in NS (Midazolam 100 Mg/100ml In Ns) 100 mg in 100 mls @ 20 mls/hr IV .Q5H PRN; Protocol; 20 MG/HR PRN Reason: Sedation Last Admin: 03/27/17 05:54 Dose: 40 mg/hr, 40 mls/hr Vancomycin HCl (Vancomycin 1gm) 1 gm in 250 mls @ 167 mls/hr IVPB Q12H [facility] PRN Reason: Protocol Last Admin: 03/27/17 09:43 Dose: 167 mls/hr Levetiracetam 1,500 mg/ Sodium (Chloride) 115 mls @ 460 mls/hr IV Q12 [facility] Last Admin: 03/26/17 21:51 Dose: 460 mls/hr Fentanyl Citrate (Fentanyl Citrate/Sodium Chloride 1 Mg/100 Ml) 1,000 mcg in 100 mls @ 2 mls/hr IV .Q24H PRN; Protocol; 20 MCG/HR PRN Reason: TITRATE PER MD ORDER Last Admin: 03/27/17 03:03 Dose: 200 mcg/hr, 20 mls/hr Magnesium Sulfate 2 gm/ Sodium (Chloride) 104 mls @ 102 mls/hr IVPB ONCE ONE Stop: 03/27/17 10:49 Potassium Chloride (Potassium Chloride 20 Meq/100 Ml) 20 meq in 100 mls @ 50 mls/hr IVPB Q2H [facility] Stop: 03/27/17 13:59 Magnesium Oxide (Mag-Ox) 400 mg PO TID [facility] Last Admin: 03/27/17 09:41 Dose: 400 mg Metoprolol Tartrate (Lopressor) 5 mg IVP Q4 PRN PRN Reason: sbp>160 or HR > 130 BPM Last Admin: 03/26/17 21:48 Dose: 5 mg Metoprolol Tartrate (Lopressor) 12.5 mg PO BID [facility] Last Admin: 03/27/17 09:41 Dose: 12.5 mg Pantoprazole Sodium (Protonix Inj) 40 mg IVP Q12 [facility] Last Admin: 03/26/17 21:48 Dose: 40 mg - Labs Labs: 03/27/17 05:00 03/27/17 05:00 PT 11.9 Seconds (9.9-11.8) H 03/22/17 05:30 INR 1.10 (0.93-1.08) H 03/22/17 05:30 APTT 24.9 Seconds (23.7-30.8) 03/22/17 05:30 Attending/Attestation - Attestation I have personally seen and examined this patient.: Yes I have fully participated in the care of the patient.: Yes I have reviewed all pertinent clinical information, including history, physical exam and plan: Yes Notes (Text): 03/27/17 10:30 Patient was seen and examined with medical records field technician.Family is at bed side. 36 y/o M w/ prolonged intubation following cardiac arrest x 2, ARDS and septic shock. Patient is still febrile ,the etiology of fever is unclear, cultures are negative so fat Fever could be due to seizure/ central fever.Heart rate is high due to fever/possible seizure. Patient is having multiple seizure Status epilepticus ?sedated on Propofol, Fentanyl and Versed. Anara ,He is also on Dilantin and Valproic acid .Neurology is following Patient underwent tracheostomy and PEG tube placement yesterday Acute renal failure has improved, making lot of urine, Hypernatremia has resolved. Prognosis is guarded. Management plan was discussed in detail with patient Education was provided.
[2017-03-26] MEDS: levETIRAcetam 1,500 MG in Sodium Chloride 0.9% 100 ML IV SCH ×2 (11:44→21:51)
[2017-03-26] MEDS: Magnesium Oxide 400 mg Tab UD PO SCH ×2 (13:33→17:13)
[2017-03-26] MEDS: Chlorhexidine 0.12% Oral Sol 480 ml Bot PO SCH ×2 (13:34→17:07)
[2017-03-26] MEDS: Vancomycin 1gm in NS 250ml 1 GM/250 ML BAG IVPB SCH ×2 (13:37→21:53)
--- NOTE | 2017-03-26 15:47 | CP.PCM.PN ---
Subjective - Date & Time of Evaluation Date of Evaluation: 03/26/17 Time of Evaluation: 14:00 - Subjective Subjective: Unrepsosive, trach vent dependent, no acute findings Objective - Vital Signs/Intake and Output Vital Signs (last 24 hours): Temp Pulse Resp BP Pulse Ox 100.8 F H 106 H 20 107/51 L 98 03/26/17 12:00 03/26/17 14:30 03/26/17 12:00 03/26/17 14:30 03/26/17 14:30 Intake and Output: 03/26/17 03/26/17 06:59 18:59 Intake Total 900 1400 Output Total 2200 Balance 900 -800 - Medications Medications: Current Medications Acetaminophen (Tylenol 325 Mg Supp) 325 mg RC Q4H PRN PRN Reason: Fever >100.4 F Last Admin: 03/26/17 08:36 Dose: 325 mg Albuterol/Ipratropium (Duoneb 3 Mg/0.5 Mg (3 Ml) Ud) 3 ml IH Q2H PRN PRN Reason: Shortness of Breath Last Admin: 03/13/17 15:45 Dose: 3 ml Albuterol/Ipratropium (Duoneb 3 Mg/0.5 Mg (3 Ml) Ud) 3 ml IH [id number] [facility] Last Admin: 03/26/17 13:44 Dose: 3 ml Chlorhexidine Gluconate (Peridex) 15 ml PO BID [facility] Last Admin: 03/26/17 13:34 Dose: 15 ml Propofol (Diprivan) 1,000 mg in 100 mls @ 3.674 mls/hr IV .Q24H PRN; Protocol; 5 MCG/KG/MIN PRN Reason: TITRATE PER MD ORDER Last Admin: 03/26/17 09:34 Dose: 50 mcg/kg/min, 36.741 mls/hr Potassium Chloride 40 meq/ (Sodium Chloride) 1,020 mls @ 100 mls/hr IV .[id number] [facility] Last Admin: 03/25/17 07:08 Dose: 100 mls/hr Phenytoin 100 mg/ Sodium (Chloride) 52 mls @ 104 mls/hr IVPB TID [facility] Last Admin: 03/26/17 12:32 Dose: 104 mls/hr Metronidazole (Flagyl) 500 mg in 100 mls @ 100 mls/hr IVPB Q8 [facility] PRN Reason: Protocol Stop: 03/28/17 14:01 Last Admin: 03/26/17 06:29 Dose: 100 mls/hr Valproate Sodium 500 mg/ (Sodium Chloride) 105 mls @ 100 mls/hr IVPB Q8 [facility] Last Admin: 03/26/17 15:20 Dose: 100 mls/hr Midazolam 100 mg/100ml in NS (Midazolam 100 Mg/100ml In Ns) 100 mg in 100 mls @ 20 mls/hr IV .Q5H PRN; Protocol; 20 MG/HR PRN Reason: Sedation Last Admin: 03/26/17 13:14 Dose: 50 mg/hr, 50 mls/hr Vancomycin HCl (Vancomycin 1gm) 1 gm in 250 mls @ 167 mls/hr IVPB Q12H [facility] PRN Reason: Protocol Last Admin: 03/26/17 13:37 Dose: 167 mls/hr Levetiracetam 1,500 mg/ Sodium (Chloride) 115 mls @ 460 mls/hr IV Q12 [facility] Last Admin: 03/26/17 11:44 Dose: 460 mls/hr Fentanyl Citrate (Fentanyl Citrate/Sodium Chloride 1 Mg/100 Ml) 1,000 mcg in 100 mls @ 2 mls/hr IV .Q24H PRN; Protocol; 20 MCG/HR PRN Reason: TITRATE PER MD ORDER Last Admin: 03/26/17 13:13 Dose: 20 mcg/hr, 2 mls/hr Magnesium Oxide (Mag-Ox) 400 mg PO BID [facility] Last Admin: 03/26/17 13:33 Dose: 400 mg Metoprolol Tartrate (Lopressor) 5 mg IVP Q4 PRN PRN Reason: sbp>160 or HR > 130 BPM Last Admin: 03/26/17 08:31 Dose: 5 mg Metoprolol Tartrate (Lopressor) 12.5 mg PO BID [facility] Last Admin: 03/26/17 13:33 Dose: 12.5 mg Pantoprazole Sodium (Protonix Inj) 40 mg IVP Q12 [facility] Last Admin: 03/26/17 10:43 Dose: Not Given - Labs Labs: 03/26/17 05:20 03/26/17 05:20 PT 11.9 Seconds (9.9-11.8) H 10/16/17 05:30 INR 1.10 (0.93-1.08) H 03/22/17 05:30 APTT 24.9 Seconds (23.7-30.8) 03/22/17 05:30 - Constitutional Appears: Chronically Ill - Eye Exam Eye Exam: Normal appearance - ENT Exam ENT Exam: Mucous Membranes Moist - Respiratory Exam Respiratory Exam: Decreased Breath Sounds - Cardiovascular Exam Cardiovascular Exam: Tachycardia, +S1, +S2 - GI/Abdominal Exam GI & Abdominal Exam: Soft, Diminished Bowel Sounds Additional comments: PEG place - Extremities Exam Extremities Exam: Pedal Edema - Skin Skin Exam: Dry, Warm Assessment and Plan - Assessment and Plan (Free Text) Assessment: 36 year old male with history of depression,substance abuse and bipolar disorder who was admitted s/p cardiopulmonary arrest, anoxic brain injury, seizure disorder. Patient at beside. She states that her patient "looks better". I explained that patient looks more like himself because he now has trach but that he was clinically still very ill. expressed that she is remains hopeful despite being told that there is little chance for any meaningful recovery. to meet with marriage and family social worker to discuss transition to next level of care. Psychosocial support given. Plan: Palliative support
--- NOTE | 2017-03-26 17:36 | CP.PCM.PN ---
Subjective - Date & Time of Evaluation Date of Evaluation: 03/26/17 Time of Evaluation: 11:00 - Subjective Subjective: 36 yo M admitted after drug overdose, prolonged cardiac arrest; with anoxic brain injury; s/p Trach and gastrostomy tube placement yesterday; still spiking fevers and remains tachycardic; reportedly having high residual volume from G-tube; Objective - Vital Signs/Intake and Output Vital Signs (last 24 hours): Temp Pulse Resp BP Pulse Ox 99.2 F 102 H 14 105/46 L 100 03/26/17 16:00 03/26/17 17:13 03/26/17 16:00 03/26/17 17:13 03/26/17 16:10 Intake and Output: 03/26/17 03/26/17 06:59 18:59 Intake Total 900 1500 Output Total 2200 Balance 900 -700 - Medications Medications: Current Medications Acetaminophen (Tylenol 325 Mg Supp) 325 mg RC Q4H PRN PRN Reason: Fever >100.4 F Last Admin: 03/26/17 08:36 Dose: 325 mg Albuterol/Ipratropium (Duoneb 3 Mg/0.5 Mg (3 Ml) Ud) 3 ml IH Q2H PRN PRN Reason: Shortness of Breath Last Admin: 03/13/17 15:45 Dose: 3 ml Albuterol/Ipratropium (Duoneb 3 Mg/0.5 Mg (3 Ml) Ud) 3 ml IH [id number] [facility] Last Admin: 03/26/17 13:44 Dose: 3 ml Chlorhexidine Gluconate (Peridex) 15 ml PO BID [facility] Last Admin: 03/26/17 17:07 Dose: 15 ml Propofol (Diprivan) 1,000 mg in 100 mls @ 3.674 mls/hr IV .Q24H PRN; Protocol; 5 MCG/KG/MIN PRN Reason: TITRATE PER MD ORDER Last Admin: 03/26/17 17:18 Dose: 50 mcg/kg/min, 36.741 mls/hr Potassium Chloride 40 meq/ (Sodium Chloride) 1,020 mls @ 100 mls/hr IV .[id number] [facility] Last Admin: 03/25/17 07:08 Dose: 100 mls/hr Phenytoin 100 mg/ Sodium (Chloride) 52 mls @ 104 mls/hr IVPB TID [facility] Last Admin: 03/26/17 12:32 Dose: 104 mls/hr Valproate Sodium 500 mg/ (Sodium Chloride) 105 mls @ 100 mls/hr IVPB Q8 [facility] Last Admin: 03/26/17 15:20 Dose: 100 mls/hr Midazolam 100 mg/100ml in NS (Midazolam 100 Mg/100ml In Ns) 100 mg in 100 mls @ 20 mls/hr IV .Q5H PRN; Protocol; 20 MG/HR PRN Reason: Sedation Last Admin: 03/26/17 15:57 Dose: 40 mg/hr, 40 mls/hr Vancomycin HCl (Vancomycin 1gm) 1 gm in 250 mls @ 167 mls/hr IVPB Q12H [facility] PRN Reason: Protocol Last Admin: 03/26/17 13:37 Dose: 167 mls/hr Levetiracetam 1,500 mg/ Sodium (Chloride) 115 mls @ 460 mls/hr IV Q12 [facility] Last Admin: 03/26/17 11:44 Dose: 460 mls/hr Fentanyl Citrate (Fentanyl Citrate/Sodium Chloride 1 Mg/100 Ml) 1,000 mcg in 100 mls @ 2 mls/hr IV .Q24H PRN; Protocol; 20 MCG/HR PRN Reason: TITRATE PER MD ORDER Last Admin: 03/26/17 13:13 Dose: 20 mcg/hr, 2 mls/hr Magnesium Oxide (Mag-Ox) 400 mg PO BID [facility] Last Admin: 03/26/17 17:13 Dose: 400 mg Metoprolol Tartrate (Lopressor) 5 mg IVP Q4 PRN PRN Reason: sbp>160 or HR > 130 BPM Last Admin: 03/26/17 08:31 Dose: 5 mg Metoprolol Tartrate (Lopressor) 12.5 mg PO BID [facility] Last Admin: 03/26/17 17:13 Dose: 12.5 mg Pantoprazole Sodium (Protonix Inj) 40 mg IVP Q12 [facility] Last Admin: 03/26/17 10:43 Dose: Not Given - Labs Labs: 03/26/17 05:20 03/26/17 05:20 PT 11.9 Seconds (9.9-11.8) H 03/22/17 05:30 INR 1.10 (0.93-1.08) H 03/22/17 05:30 APTT 24.9 Seconds (23.7-30.8) 03/22/17 05:30 - Constitutional Appears: Non-toxic, No Acute Distress - Head Exam Head Exam: NORMAL INSPECTION - Eye Exam Eye Exam: absent: Scleral icterus - ENT Exam ENT Exam: Mucous Membranes Moist - Respiratory Exam Respiratory Exam: Clear to Ausculation Bilateral. absent: Respiratory Distress Additional comments: mildly tachypneic; - Cardiovascular Exam Cardiovascular Exam: Tachycardia, REGULAR RHYTHM, +S1, +S2 - GI/Abdominal Exam GI & Abdominal Exam: Soft Additional comments: G-tube present; - Extremities Exam Extremities Exam: Pedal Edema Additional comments: no other significant leg edema; - Neurological Exam Neurological Exam: absent: Alert, Awake Additional comments: responds to noxious stimui; - Skin Skin Exam: Warm. absent: Cyanosis Assessment and Plan (1) Acute renal failure Status: Resolved (2) ARDS (adult respiratory distress syndrome) Status: Acute (3) Polyuria Assessment & Plan: Still with high urine output as of this morning (~1400 cc in ~4-5 hours) despite intakes having been decreased significantly; serum Na stable; likely a solute diuresis from IVF w/ meds; will check urine for osm, Na, K and urea but will hold off on adding any IVF for now; Status: Acute (4) Electrolyte imbalance Assessment & Plan: Hypomagnesemia recurrent; need to avoid giving large doses of IV mag very rapidly as this will just cause renal mag wasting (run at no more than 1g per hr , even less if possible); starting PO mag ox 400 mg bid once G-tube can be used; Status: Acute
[2017-03-27] MEDS: Midazolam 100 mg/100ml in NS 100 MG/100 ML SOL IV PRN ×6 (00:34→22:24)
[2017-03-27] MEDS: Propofol 10 mg/ml 1,000 MG/100 ML VIAL IV PRN ×6 (01:00→23:14)
[2017-03-27] MEDS: Albuterol-Ipratrop 3 mg / 0.5 (3 ml) UD IH SCH ×4 (02:30→20:01)
[2017-03-27] MEDS: Fentanyl 1000mcg/100ml NS 1,000 MCG/100 ML BAG IV PRN ×2 (03:03→20:09)
[2017-03-27 05:51] LABS: ALB/GLOB RATIO 0.8 (1.1-1.8); ALKALINE PHOSPHATASE 125 U/L (38-126); ALT/SGPT 42 U/L (7-56); AST/SGOT 60 U/L (17-59); BILIRUBIN,TOTAL 1.6 mg/dL (0.2-1.3); BLOOD UREA NITROGEN 7 mg/dL (7-21); CALCIUM 8.6 mg/dL (8.4-10.5); CARBON DIOXIDE 25 mmol/L (21-33); CHLORIDE 107 mmol/L (98-107); GFR AFRICAN-AMERICAN > 60; GLUCOSE,RANDOM 98 mg/dL (70-110); MAGNESIUM 1.6 mg/dL (1.7-2.2); PHOSPHOROUS 3.7 mg/dL (2.5-4.5); POTASSIUM 3.4 mmol/L (3.6-5.0); SODIUM 145 mmol/L (132-148); TOTAL PROTEIN 7.2 g/dL (5.8-8.3)
[2017-03-27 05:53] LABS: HEMATOCRIT 24.4 % (42.0-52.0); MEAN CELL VOLUME 90.4 fl (80.0-105.0); MEAN CORPUSCULAR HEMOGLOBIN 28.9 pg (25.0-35.0); MEAN PLATELET VOLUME 9.6 fl (7.0-11.0); RED CELL DISTRIBUTION WIDTH 14.3 % (11.5-14.5); WHITE BLOOD COUNT 8.6 10^3/ul (4.5-11.0)
[2017-03-27] MEDS: Valproate 500 MG in Sodium Chloride 0.9% 100 ML IVPB SCH ×3 (05:55→21:34)
--- NOTE | 2017-03-27 09:03 | PN ---
CIRCULAR HEAD SAW OPERATOR NOTE DATE: 03/27/2017 SUBJECTIVE: The patient continues to be unresponsive on the ventilator, note that the patient does have occasional fever and has had trach placement as well as PEG tube placement. PHYSICAL EXAMINATION: VITAL SIGNS: Note that his temperature is 99.5, pulse is 125, respirations are 18 and BP is 101/57. O2 saturation on the ventilator support is 100%. SKIN: Warm and dry. HEENT: Head is atraumatic and normocephalic. Eyes: No significant change. Ears, nose, and throat seemed to be within normal limits. NECK: Supple. No JVD. No thyroid enlargement. No lymph nodes. HEART: Regular rate and rhythm. Normal S1 and S2 with tachycardic. LUNGS: Rare rhonchi bilaterally. ABDOMEN: Soft, decreased bowel sounds. GENITALIA: Deferred. RECTAL: Deferred. MUSCULOSKELETAL: No joint deformities. EXTREMITIES: Reveal positive lower extremity edema. NEUROLOGIC: The patient is unresponsive on the ventilator. LABORATORY DATA: White count of 8.6; hemoglobin 7.8; hematocrit is 24.4 with platelets of 317,000. Latest arterial blood gas reveals pH of 7.38, PCO2 of 39, PO2 of 95; this was as of 03/26/2017. Sodium is 145, potassium is 3.4, chloride 107, CO2 of 25 with a BUN of 7, creatinine of 0.5, and a glucose of 98. IMPRESSION: This patient initially presented with cardiac arrest secondary to drug overdose, continues to have respiratory failure. The patient has adult respiratory distress syndrome with noted acute renal insufficiency that has resolved. The patient continues to have anemia and is unresponsive. PLAN: We will continue with ventilator support. Continue to give pulmonary toilet. The patient will be followed with chest x-ray and arterial blood gases. He will continue with Dilantin as well as bronchodilators of DuoNeb. The patient is on Fentanyl and Keppra as well. He is continuing with antibiotics of vancomycin, and we will give Tylenol for fevers. The patient is on Diprivan as well. We will continue to treat aggressively along with the other consultants and the primary care doctor. Ramon Zavaleta MD [facility] # [id number]
--- NOTE | 2017-03-27 09:05 | CP.PCM.PN ---
Subjective - Date & Time of Evaluation Date of Evaluation: 03/27/17 Time of Evaluation: 09:01 - Subjective Subjective: Surgery Pt s&e. Doesn't follow commands. On vent. NGT in place. Objective - Vital Signs/Intake and Output Vital Signs (last 24 hours): Temp Pulse Resp BP Pulse Ox 99.5 F 125 H 22 101/57 L 100 03/27/17 04:00 03/27/17 06:10 03/27/17 07:58 03/27/17 06:00 03/27/17 07:58 Intake and Output: 03/27/17 03/27/17 06:59 18:59 Intake Total 2480 Output Total 2000 Balance 480 - Medications Medications: Current Medications Acetaminophen (Tylenol 325 Mg Supp) 325 mg RC Q4H PRN PRN Reason: Fever >100.4 F Last Admin: 03/26/17 21:53 Dose: 325 mg Albuterol/Ipratropium (Duoneb 3 Mg/0.5 Mg (3 Ml) Ud) 3 ml IH Q2H PRN PRN Reason: Shortness of Breath Last Admin: 03/13/17 15:45 Dose: 3 ml Albuterol/Ipratropium (Duoneb 3 Mg/0.5 Mg (3 Ml) Ud) 3 ml IH [id number] [facility] Last Admin: 03/27/17 07:58 Dose: 3 ml Chlorhexidine Gluconate (Peridex) 15 ml PO BID [facility] Last Admin: 03/26/17 17:07 Dose: 15 ml Propofol (Diprivan) 1,000 mg in 100 mls @ 3.674 mls/hr IV .Q24H PRN; Protocol; 5 MCG/KG/MIN PRN Reason: TITRATE PER MD ORDER Last Admin: 03/27/17 06:32 Dose: 50 mcg/kg/min, 36.741 mls/hr Potassium Chloride 40 meq/ (Sodium Chloride) 1,020 mls @ 100 mls/hr IV .[id number] [facility] Last Admin: 03/25/17 07:08 Dose: 100 mls/hr Phenytoin 100 mg/ Sodium (Chloride) 52 mls @ 104 mls/hr IVPB TID [facility] Last Admin: 03/26/17 19:28 Dose: 104 mls/hr Valproate Sodium 500 mg/ (Sodium Chloride) 105 mls @ 100 mls/hr IVPB Q8 [facility] Last Admin: 03/27/17 05:55 Dose: 100 mls/hr Midazolam 100 mg/100ml in NS (Midazolam 100 Mg/100ml In Ns) 100 mg in 100 mls @ 20 mls/hr IV .Q5H PRN; Protocol; 20 MG/HR PRN Reason: Sedation Last Admin: 03/27/17 05:54 Dose: 40 mg/hr, 40 mls/hr Vancomycin HCl (Vancomycin 1gm) 1 gm in 250 mls @ 167 mls/hr IVPB Q12H [facility] PRN Reason: Protocol Last Admin: 03/26/17 21:53 Dose: 167 mls/hr Levetiracetam 1,500 mg/ Sodium (Chloride) 115 mls @ 460 mls/hr IV Q12 [facility] Last Admin: 03/26/17 21:51 Dose: 460 mls/hr Fentanyl Citrate (Fentanyl Citrate/Sodium Chloride 1 Mg/100 Ml) 1,000 mcg in 100 mls @ 2 mls/hr IV .Q24H PRN; Protocol; 20 MCG/HR PRN Reason: TITRATE PER MD ORDER Last Admin: 03/27/17 03:03 Dose: 200 mcg/hr, 20 mls/hr Magnesium Oxide (Mag-Ox) 400 mg PO TID [facility] Metoprolol Tartrate (Lopressor) 5 mg IVP Q4 PRN PRN Reason: sbp>160 or HR > 130 BPM Last Admin: 03/26/17 21:48 Dose: 5 mg Metoprolol Tartrate (Lopressor) 12.5 mg PO BID [facility] Last Admin: 03/26/17 17:13 Dose: 12.5 mg Pantoprazole Sodium (Protonix Inj) 40 mg IVP Q12 [facility] Last Admin: 03/26/17 21:48 Dose: 40 mg - Labs Labs: 03/27/17 05:00 03/27/17 05:00 PT 11.9 Seconds (9.9-11.8) H 03/22/17 05:30 INR 1.10 (0.93-1.08) H 03/22/17 05:30 APTT 24.9 Seconds (23.7-30.8) 03/22/17 05:30 - Constitutional Appears: Non-toxic - Head Exam Head Exam: ATRAUMATIC, NORMAL INSPECTION, NORMOCEPHALIC - ENT Exam ENT Exam: Mucous Membranes Moist Additional comments: NGT - Neck Exam Neck Exam: absent: Lymphadenopathy, Normal Inspection Additional comments: Trach collar in place - Respiratory Exam Respiratory Exam: Respiratory Distress. absent: NORMAL BREATHING PATTERN - Cardiovascular Exam Cardiovascular Exam: REGULAR RHYTHM, +S1, +S2. absent: Murmur - GI/Abdominal Exam GI & Abdominal Exam: Soft, Normal Bowel Sounds. absent: Distended, Tenderness Additional comments: Gastrostomy in place - Extremities Exam Extremities Exam: Normal Capillary Refill, Normal Inspection. absent: Joint Swelling, Pedal Edema - Back Exam Back Exam: NORMAL INSPECTION - Neurological Exam Neurological Exam: absent: Alert, Awake, Normal Gait, Oriented x3 - Skin Skin Exam: Dry, Intact, Normal Color, Warm Assessment and Plan - Assessment and Plan (Free Text) Assessment: POD 2 s/p trach and gastrostomy -Ok to use gatrostomy tube feed. -DC NGT if tolerating tube feed -Flush with 20cc saline each use -ICU managment Will DW Dr. Reyes
[2017-03-27] MEDS: Magnesium Oxide 400 mg Tab UD PO SCH ×3 (09:41→17:33)
--- NOTE | 2017-03-27 09:42 | CP.PCM.PN ---
<Manuel Lambert - Last Filed: 03/27/17 09:39> Subjective - Date & Time of Evaluation Date of Evaluation: 03/27/17 Time of Evaluation: 08:00 - Subjective Subjective: Medicine Progress Note: Pt seen and examined at bedside. No Acute events overnight. Pt is currently trached, peg, and sedated with versed, diprivan, and fentanyl. Still febrile overnight. ROS unobtainable due to patients clinical status. Objective - Vital Signs/Intake and Output Vital Signs (last 24 hours): Temp Pulse Resp BP Pulse Ox 99.5 F 125 H 22 101/57 L 100 03/27/17 04:00 03/27/17 06:10 03/27/17 07:58 03/27/17 06:00 03/27/17 07:58 Intake and Output: 03/27/17 03/27/17 06:59 18:59 Intake Total 2480 Output Total 2000 Balance 480 - Medications Medications: Current Medications Acetaminophen (Tylenol 325 Mg Supp) 325 mg RC Q4H PRN PRN Reason: Fever >100.4 F Last Admin: 03/26/17 21:53 Dose: 325 mg Albuterol/Ipratropium (Duoneb 3 Mg/0.5 Mg (3 Ml) Ud) 3 ml IH Q2H PRN PRN Reason: Shortness of Breath Last Admin: 03/13/17 15:45 Dose: 3 ml Albuterol/Ipratropium (Duoneb 3 Mg/0.5 Mg (3 Ml) Ud) 3 ml IH [id number] [facility] Last Admin: 03/27/17 07:58 Dose: 3 ml Chlorhexidine Gluconate (Peridex) 15 ml PO BID [facility] Last Admin: 03/26/17 17:07 Dose: 15 ml Propofol (Diprivan) 1,000 mg in 100 mls @ 3.674 mls/hr IV .Q24H PRN; Protocol; 5 MCG/KG/MIN PRN Reason: TITRATE PER MD ORDER Last Admin: 03/27/17 06:32 Dose: 50 mcg/kg/min, 36.741 mls/hr Potassium Chloride 40 meq/ (Sodium Chloride) 1,020 mls @ 100 mls/hr IV .[id number] [facility] Last Admin: 03/25/17 07:08 Dose: 100 mls/hr Phenytoin 100 mg/ Sodium (Chloride) 52 mls @ 104 mls/hr IVPB TID [facility] Last Admin: 03/26/17 19:28 Dose: 104 mls/hr Valproate Sodium 500 mg/ (Sodium Chloride) 105 mls @ 100 mls/hr IVPB Q8 [facility] Last Admin: 03/27/17 05:55 Dose: 100 mls/hr Midazolam 100 mg/100ml in NS (Midazolam 100 Mg/100ml In Ns) 100 mg in 100 mls @ 20 mls/hr IV .Q5H PRN; Protocol; 20 MG/HR PRN Reason: Sedation Last Admin: 03/27/17 05:54 Dose: 40 mg/hr, 40 mls/hr Vancomycin HCl (Vancomycin 1gm) 1 gm in 250 mls @ 167 mls/hr IVPB Q12H [facility] PRN Reason: Protocol Last Admin: 03/26/17 21:53 Dose: 167 mls/hr Levetiracetam 1,500 mg/ Sodium (Chloride) 115 mls @ 460 mls/hr IV Q12 [facility] Last Admin: 03/26/17 21:51 Dose: 460 mls/hr Fentanyl Citrate (Fentanyl Citrate/Sodium Chloride 1 Mg/100 Ml) 1,000 mcg in 100 mls @ 2 mls/hr IV .Q24H PRN; Protocol; 20 MCG/HR PRN Reason: TITRATE PER MD ORDER Last Admin: 03/27/17 03:03 Dose: 200 mcg/hr, 20 mls/hr Magnesium Oxide (Mag-Ox) 400 mg PO TID [facility] Metoprolol Tartrate (Lopressor) 5 mg IVP Q4 PRN PRN Reason: sbp>160 or HR > 130 BPM Last Admin: 03/26/17 21:48 Dose: 5 mg Metoprolol Tartrate (Lopressor) 12.5 mg PO BID [facility] Last Admin: 03/26/17 17:13 Dose: 12.5 mg Pantoprazole Sodium (Protonix Inj) 40 mg IVP Q12 [facility] Last Admin: 03/26/17 21:48 Dose: 40 mg - Labs Labs: 03/27/17 05:00 03/27/17 05:00 PT 11.9 Seconds (9.9-11.8) H 03/22/17 05:30 INR 1.10 (0.93-1.08) H 03/22/17 05:30 APTT 24.9 Seconds (23.7-30.8) 03/22/17 05:30 - Constitutional Appears: No Acute Distress - Head Exam Head Exam: ATRAUMATIC, NORMOCEPHALIC - Eye Exam Eye Exam: PERRL Pupil Exam: NORMAL ACCOMODATION - ENT Exam ENT Exam: Mucous Membranes Moist - Respiratory Exam Respiratory Exam: Clear to Ausculation Bilateral. absent: Rales, Rhonchi, Wheezes - Cardiovascular Exam Cardiovascular Exam: REGULAR RHYTHM, RRR, +S1, +S2 - GI/Abdominal Exam GI & Abdominal Exam: Soft. absent: Distended, Tenderness - Extremities Exam Extremities Exam: absent: Calf Tenderness, Pedal Edema - Skin Skin Exam: Intact, Warm Assessment and Plan - Assessment and Plan (Free Text) Assessment: 36 y/o male with PMH of substance abuse presents with drug overdose, with multiple substances (+BZDs, barbiturate, Opiates), s/p ROSC after cardiac arrest x 3, unknown initial downtime at home. Pt developed anoxic brain injury from his cardiac arrest and now in status epilepticus sedated with Propofol, Versed, and Fentanyl. Hospital course complicated with renal failure and hypernatremia which have both resolved. Patient began running a fever on IV abx - Vanc. Septic workup thus far negative. Patient is s/p tracheostomy and PEG day#2. Prognosis discussed with family, who are hopeful patient will have a meaningful recovery. Plan: Neuro: -Patient intubated and unresponsive on sedative medication -Neurochecks -Urine toxicology positive for opiates, barbiturates and benzos on admission -Repeat EEG demonstrates anoxic brain injury and poor prognosis -Brain MRI showed anoxic injury in thalamic region bilaterally -Will continue to attempt weaning trials as tolerated -Seizures Continue Fentanyl 200mcg/hr, Midazolam 40mcg/hr, Propofol 50mcg/hr. Valproate, keppra and Dilantin. -Seizure precautions -F/u neuro recs -F/u palliative recs -Family agreeable to LTACH. Awaiting approval Cardio: -EKG reviewed; atrial fibrillation with slow ventricular response (51bpm), nonspecific intraventricular block -Patient sinus tachycardic at 135. Likely 2/2 to seizure activity. Will continue to monitor. -F/u cardiology recs Pulm: -35/8/15/400 -Patient Tracheostomy s/p day#2. -CXR showed limited increased in atelectasis and possible infiltrate at left base with none at the right. Negative pleural effusion or pneumothorax. -patient pO2 stable. Patient's FiO2 40%%. Will monitor closely. -Continue serial CXR and ABG. GI: -Tube feeds to start today -NGT may remove once tube feeds started -Protonix -Abd Xray - negative Renal: -Hypernatremic resolved. -Hypokalemia 3.4 today. Will replete as needed. -Magnesium 1.6 today. Will replete at needed. -Monitor and replete electrolyte abnormalities as needed -Monitor I's and O's -F/u renal recs Endo: -Fingersticks q2h -Maintain euglycemia between 140-180's -Stress dose steroids, tapering ID: -Febrile -Will f/u with repeat cultures, and urinalysis ordered today -Continue Tylenol as needed. -Sputum culture grew Yeast species. -ID consulted for recs Heme: - Monitor H/H - Hb of 7.8 this am will repeat CBC at 3pm - Cont to monitor GI/DVT Prophylaxis -Protonix/SCD's Pt and plan was seen, reviewed and discussed in detail with Dr Carlos. <Miguel Carlos - Last Filed: 03/27/17 10:36> Objective - Vital Signs/Intake and Output Vital Signs (last 24 hours): Temp Pulse Resp BP Pulse Ox 102 F H 140 H 22 155/70 H 100 03/27/17 09:42 03/27/17 09:41 03/27/17 07:58 03/27/17 09:41 03/27/17 07:58 Intake and Output: 03/27/17 03/27/17 06:59 18:59 Intake Total 2480 Output Total 2000 Balance 480 - Medications Medications: Current Medications Acetaminophen (Tylenol 325 Mg Supp) 325 mg RC Q4H PRN PRN Reason: Fever >100.4 F Last Admin: 03/27/17 09:42 Dose: 325 mg Albuterol/Ipratropium (Duoneb 3 Mg/0.5 Mg (3 Ml) Ud) 3 ml IH Q2H PRN PRN Reason: Shortness of Breath Last Admin: 03/13/17 15:45 Dose: 3 ml Albuterol/Ipratropium (Duoneb 3 Mg/0.5 Mg (3 Ml) Ud) 3 ml IH [id number] [facility] Last Admin: 03/27/17 07:58 Dose: 3 ml Chlorhexidine Gluconate (Peridex) 15 ml PO BID [facility] Last Admin: 03/26/17 17:07 Dose: 15 ml Propofol (Diprivan) 1,000 mg in 100 mls @ 3.674 mls/hr IV .Q24H PRN; Protocol; 5 MCG/KG/MIN PRN Reason: TITRATE PER MD ORDER Last Admin: 03/27/17 06:32 Dose: 50 mcg/kg/min, 36.741 mls/hr Potassium Chloride 40 meq/ (Sodium Chloride) 1,020 mls @ 100 mls/hr IV .[id number] [facility] Last Admin: 03/25/17 07:08 Dose: 100 mls/hr Phenytoin 100 mg/ Sodium (Chloride) 52 mls @ 104 mls/hr IVPB TID [facility] Last Admin: 03/26/17 19:28 Dose: 104 mls/hr Valproate Sodium 500 mg/ (Sodium Chloride) 105 mls @ 100 mls/hr IVPB Q8 [facility] Last Admin: 03/27/17 05:55 Dose: 100 mls/hr Midazolam 100 mg/100ml in NS (Midazolam 100 Mg/100ml In Ns) 100 mg in 100 mls @ 20 mls/hr IV .Q5H PRN; Protocol; 20 MG/HR PRN Reason: Sedation Last Admin: 03/27/17 05:54 Dose: 40 mg/hr, 40 mls/hr Vancomycin HCl (Vancomycin 1gm) 1 gm in 250 mls @ 167 mls/hr IVPB Q12H [facility] PRN Reason: Protocol Last Admin: 03/27/17 09:43 Dose: 167 mls/hr Levetiracetam 1,500 mg/ Sodium (Chloride) 115 mls @ 460 mls/hr IV Q12 [facility] Last Admin: 03/26/17 21:51 Dose: 460 mls/hr Fentanyl Citrate (Fentanyl Citrate/Sodium Chloride 1 Mg/100 Ml) 1,000 mcg in 100 mls @ 2 mls/hr IV .Q24H PRN; Protocol; 20 MCG/HR PRN Reason: TITRATE PER MD ORDER Last Admin: 03/27/17 03:03 Dose: 200 mcg/hr, 20 mls/hr Magnesium Sulfate 2 gm/ Sodium (Chloride) 104 mls @ 102 mls/hr IVPB ONCE ONE Stop: 03/27/17 10:49 Potassium Chloride (Potassium Chloride 20 Meq/100 Ml) 20 meq in 100 mls @ 50 mls/hr IVPB Q2H [facility] Stop: 03/27/17 13:59 Magnesium Oxide (Mag-Ox) 400 mg PO TID [facility] Last Admin: 03/27/17 09:41 Dose: 400 mg Metoprolol Tartrate (Lopressor) 5 mg IVP Q4 PRN PRN Reason: sbp>160 or HR > 130 BPM Last Admin: 03/26/17 21:48 Dose: 5 mg Metoprolol Tartrate (Lopressor) 12.5 mg PO BID [facility] Last Admin: 03/27/17 09:41 Dose: 12.5 mg Pantoprazole Sodium (Protonix Inj) 40 mg IVP Q12 [facility] Last Admin: 03/26/17 21:48 Dose: 40 mg - Labs Labs: 03/27/17 05:00 03/27/17 05:00 PT 11.9 Seconds (9.9-11.8) H 03/22/17 05:30 INR 1.10 (0.93-1.08) H 03/22/17 05:30 APTT 24.9 Seconds (23.7-30.8) 03/22/17 05:30 Attending/Attestation - Attestation I have personally seen and examined this patient.: Yes I have fully participated in the care of the patient.: Yes I have reviewed all pertinent clinical information, including history, physical exam and plan: Yes Notes (Text): 03/27/17 10:33 Patient was seen and examined with medical office technician.Family is at bed side. 36 yrs male with prolonged intubation following cardiac arrest x 2, ARDS and septic shock. Patient is still febrile ,the etiology of fever is unclear, cultures are negative so fat Fever could be due to seizure/ central fever.We will repeat blood cultures, we will get Procalcitonin level.We will also get ID consult. Heart rate is high due to fever/possible seizure.Patient is on PRN metoprolol, will not increase dose at this time as patient is febrile Patient is having multiple seizure Status epilepticus ?sedated on Propofol, Fentanyl and Versed. Kejeffra ,He is also on Dilantin and Valproic acid .Neurology is following Patient underwent tracheostomy and PEG tube placement , will start on tube feeding today. Acute renal failure has improved, making lot of urine, Prognosis is guarded. Management plan was discussed in detail with patient Education was provided.
[2017-03-27] MEDS: Vancomycin 1gm in NS 250ml 1 GM/250 ML BAG IVPB SCH ×2 (09:43→21:23)
[2017-03-27] MEDS ORDERED: Magnesium Sulfate 2 GM in Sodium Chloride 0.9% 100 ML IVPB ONE (09:48)
[2017-03-27] MEDS: Chlorhexidine 0.12% Oral Sol 480 ml Bot PO SCH ×2 (10:00→17:33)
--- NOTE | 2017-03-27 10:44 | RAD ---
HISTORY: intubated, f/u COMPARISON: 03/26/2017 FINDINGS: LUNGS: No active pulmonary disease. PLEURA: No significant pleural effusion identified, no pneumothorax apparent. CARDIOVASCULAR: Normal. OSSEOUS STRUCTURES: No significant abnormalities. VISUALIZED UPPER ABDOMEN: Nasogastric tube in satisfactory position OTHER FINDINGS: None. IMPRESSION: No active disease.
[2017-03-27] MEDS: levETIRAcetam 1,500 MG in Sodium Chloride 0.9% 100 ML IV SCH ×2 (10:57→22:34)
[2017-03-27 11:39] LABS: ARTERIAL BLOOD GAS HCO3 26.3 mmol/L (21-28); ARTERIAL BLOOD GAS O2 CAPACITY 12.2 mL/dl (16-24); ARTERIAL BLOOD GAS O2 CONTENT 12.2 ML/dl (15-23); ARTERIAL BLOOD GAS PH 7.46 (7.35-7.45); ARTERIAL BLOOD HGB O2 SAT 96.8 % (95.0-98.0); CARBOXYHEMOGLOBIN 1.6 % (0.5-1.5); HHB 0.3 % (0-5); METHEMOGLOBIN 1.3 % (0.0-3.0)
--- NOTE | 2017-03-27 14:54 | CP.PCM.PN ---
Objective - Vital Signs/Intake and Output Vital Signs (last 24 hours): Temp Pulse Resp BP Pulse Ox 101.9 F H 140 H 22 155/70 H 100 03/27/17 10:42 03/27/17 09:41 03/27/17 07:58 03/27/17 09:41 03/27/17 07:58 Intake and Output: 03/27/17 03/27/17 06:59 18:59 Intake Total 2480 Output Total 2000 Balance 480 - Medications Medications: Current Medications Acetaminophen (Tylenol 325 Mg Supp) 325 mg RC Q4H PRN PRN Reason: Fever >100.4 F Last Admin: 03/27/17 09:42 Dose: 325 mg Albuterol/Ipratropium (Duoneb 3 Mg/0.5 Mg (3 Ml) Ud) 3 ml IH Q2H PRN PRN Reason: Shortness of Breath Last Admin: 03/13/17 15:45 Dose: 3 ml Albuterol/Ipratropium (Duoneb 3 Mg/0.5 Mg (3 Ml) Ud) 3 ml IH [id number] [facility] Last Admin: 03/27/17 13:56 Dose: 3 ml Chlorhexidine Gluconate (Peridex) 15 ml PO BID [facility] Last Admin: 03/27/17 10:00 Dose: 15 ml Propofol (Diprivan) 1,000 mg in 100 mls @ 3.674 mls/hr IV .Q24H PRN; Protocol; 5 MCG/KG/MIN PRN Reason: TITRATE PER MD ORDER Last Admin: 03/27/17 06:32 Dose: 50 mcg/kg/min, 36.741 mls/hr Phenytoin 100 mg/ Sodium (Chloride) 52 mls @ 104 mls/hr IVPB TID [facility] Last Admin: 03/27/17 14:45 Dose: 104 mls/hr Valproate Sodium 500 mg/ (Sodium Chloride) 105 mls @ 100 mls/hr IVPB Q8 [facility] Last Admin: 03/27/17 14:26 Dose: 100 mls/hr Midazolam 100 mg/100ml in NS (Midazolam 100 Mg/100ml In Ns) 100 mg in 100 mls @ 20 mls/hr IV .Q5H PRN; Protocol; 20 MG/HR PRN Reason: Sedation Last Admin: 03/27/17 05:54 Dose: 40 mg/hr, 40 mls/hr Vancomycin HCl (Vancomycin 1gm) 1 gm in 250 mls @ 167 mls/hr IVPB Q12H [facility] PRN Reason: Protocol Last Admin: 03/27/17 09:43 Dose: 167 mls/hr Levetiracetam 1,500 mg/ Sodium (Chloride) 115 mls @ 460 mls/hr IV Q12 [facility] Last Admin: 03/27/17 10:57 Dose: 460 mls/hr Fentanyl Citrate (Fentanyl Citrate/Sodium Chloride 1 Mg/100 Ml) 1,000 mcg in 100 mls @ 2 mls/hr IV .Q24H PRN; Protocol; 20 MCG/HR PRN Reason: TITRATE PER MD ORDER Last Admin: 03/27/17 03:03 Dose: 200 mcg/hr, 20 mls/hr Acetaminophen (Ofirmev) 1,000 mg in 100 mls @ 400 mls/hr IVPB Q6H PRN PRN Reason: fever Stop: 03/29/17 13:44 Last Admin: 03/27/17 14:32 Dose: 400 mls/hr Potassium Chloride 40 meq/ (Sodium Chloride) 1,020 mls @ 60 mls/hr IV .Q17H [facility] Magnesium Oxide (Mag-Ox) 400 mg PO TID [facility] Last Admin: 03/27/17 14:31 Dose: 400 mg Metoprolol Tartrate (Lopressor) 5 mg IVP Q4 PRN PRN Reason: sbp>160 or HR > 130 BPM Last Admin: 03/26/17 21:48 Dose: 5 mg Metoprolol Tartrate (Lopressor) 12.5 mg PO BID [facility] Last Admin: 03/27/17 09:41 Dose: 12.5 mg Pantoprazole Sodium (Protonix Inj) 40 mg IVP Q12 [facility] Last Admin: 03/27/17 10:00 Dose: 40 mg - Labs Labs: 03/27/17 05:00 03/27/17 05:00 PT 11.9 Seconds (9.9-11.8) H 03/22/17 05:30 INR 1.10 (0.93-1.08) H 03/22/17 05:30 APTT 24.9 Seconds (23.7-30.8) 03/22/17 05:30 Assessment and Plan (1) Acute renal failure Status: Resolved (2) ARDS (adult respiratory distress syndrome) Status: Acute (3) Polyuria Status: Acute (4) Electrolyte imbalance Status: Acute
[2017-03-27 14:55] LABS: BASO # 0.06 K/mm3 (0.0-2.0); BASO % 0.7 % (0.0-3.0); EOS # 0.2 (0.0-0.7); EOS % 2.4 % (1.5-5.0); GRAN # 5.47 (1.4-6.5); GRAN % 63.5 % (50.0-68.0); HEMATOCRIT 28.3 % (42.0-52.0); LYMPH # 1.5 (1.2-3.4); LYMPH % 17.9 % (22.0-35.0); MEAN CELL VOLUME 91.9 fl (80.0-105.0); MEAN CORPUSCULAR HEMOGLOBIN 29.2 pg (25.0-35.0); MEAN CORPUSCULAR HGB CONC 31.8 g/dl (31.0-37.0); MEAN PLATELET VOLUME 10.5 fl (7.0-11.0); MONO # 1.3 (0.1-0.6); MONO % 15.5 % (1.0-6.0); RED CELL DISTRIBUTION WIDTH 14.3 % (11.5-14.5); WHITE BLOOD COUNT 8.6 10^3/ul (4.5-11.0)
[2017-03-27 15:16] LABS: PH,URINE 6.5 (4.7-8.0); URINE BILIRUBIN MODERATE (NEGATIVE); URINE BLOOD NEGATIVE (NEGATIVE); URINE GLUCOSE (UA) NEGATIVE (NEGATIVE); URINE KETONE 15 mg/dL (NEGATIVE); URINE LEUKOCYTE ESTERASE NEGATIVE Leu/uL (NEGATIVE); URINE PROTEIN 30 mg/dL (<30 mg/dL)
[2017-03-27 15:20] LABS: URINE APPEARANCE CLEAR (CLEAR); URINE COLOR AMBER (YELLOW)
[2017-03-27] MEDS: Potassium Chloride 40 MEQ in Sodium Chloride 0.45% 1,000 ML IV SCH (17:34)
--- NOTE | 2017-03-27 20:01 | CP.PCM.CON ---
History of Present Illness - History of Present Illness History of Present Illness: Infectious Disease Consultation: March 27, 2017 36 yo male who [place] [facility] [place] for up to 9 hours. The patient was found next to multiple empty pill bottles. The patient has been in the hospital for over 2 weeks at this point. He is in respiratory failure and is now trached. The patient is febrile with shakes. Difficult obtaining history as the patient appears to have lived alone. The patient's I believe is estranged. PMHx: HTN, substance abuse, depression, bipolar disorder, anxiety disorder. PSHx: Unable to obtain Allergies: NKDA Social Hx: substance abuse lives with a roommate Unsure EtOH or tobacco history. Active Medications Acetaminophen (Tylenol 325 Mg Supp) 325 mg RC Q4H PRN PRN Reason: Fever >100.4 F Last Admin: 03/27/17 09:42 Dose: 325 mg Albuterol/Ipratropium (Duoneb 3 Mg/0.5 Mg (3 Ml) Ud) 3 ml IH Q2H PRN PRN Reason: Shortness of Breath Last Admin: 03/13/17 15:45 Dose: 3 ml Albuterol/Ipratropium (Duoneb 3 Mg/0.5 Mg (3 Ml) Ud) 3 ml IH [id number] [facility] Last Admin: 03/27/17 13:56 Dose: 3 ml Chlorhexidine Gluconate (Peridex) 15 ml PO BID [facility] Last Admin: 03/27/17 17:33 Dose: 15 ml Propofol (Diprivan) 1,000 mg in 100 mls @ 3.674 mls/hr IV .Q24H PRN; Protocol; 5 MCG/KG/MIN PRN Reason: TITRATE PER MD ORDER Last Admin: 03/27/17 12:30 Dose: 50 mcg/kg/min, 36.741 mls/hr Phenytoin 100 mg/ Sodium (Chloride) 52 mls @ 104 mls/hr IVPB TID [facility] Last Admin: 03/27/17 14:45 Dose: 104 mls/hr Valproate Sodium 500 mg/ (Sodium Chloride) 105 mls @ 100 mls/hr IVPB Q8 [facility] Last Admin: 03/27/17 14:26 Dose: 100 mls/hr Midazolam 100 mg/100ml in NS (Midazolam 100 Mg/100ml In Ns) 100 mg in 100 mls @ 20 mls/hr IV .Q5H PRN; Protocol; 20 MG/HR PRN Reason: Sedation Last Admin: 03/27/17 15:24 Dose: 30 mg/hr, 30 mls/hr Vancomycin HCl (Vancomycin 1gm) 1 gm in 250 mls @ 167 mls/hr IVPB Q12H [facility] PRN Reason: Protocol Last Admin: 03/27/17 09:43 Dose: 167 mls/hr Levetiracetam 1,500 mg/ Sodium (Chloride) 115 mls @ 460 mls/hr IV Q12 [facility] Last Admin: 03/27/17 10:57 Dose: 460 mls/hr Fentanyl Citrate (Fentanyl Citrate/Sodium Chloride 1 Mg/100 Ml) 1,000 mcg in 100 mls @ 2 mls/hr IV .Q24H PRN; Protocol; 20 MCG/HR PRN Reason: TITRATE PER MD ORDER Last Admin: 03/27/17 03:03 Dose: 200 mcg/hr, 20 mls/hr Acetaminophen (Ofirmev) 1,000 mg in 100 mls @ 400 mls/hr IVPB Q6H PRN PRN Reason: fever Stop: 03/29/17 13:44 Last Admin: 03/27/17 14:32 Dose: 400 mls/hr Potassium Chloride 40 meq/ (Sodium Chloride) 1,020 mls @ 60 mls/hr IV .Q17H [facility] Last Admin: 03/27/17 17:34 Dose: 60 mls/hr Magnesium Oxide (Mag-Ox) 400 mg PO TID [facility] Last Admin: 03/27/17 17:33 Dose: 400 mg Metoprolol Tartrate (Lopressor) 5 mg IVP Q4 PRN PRN Reason: sbp>160 or HR > 130 BPM Last Admin: 03/26/17 21:48 Dose: 5 mg Metoprolol Tartrate (Lopressor) 12.5 mg PO BID [facility] Last Admin: 03/27/17 17:32 Dose: 12.5 mg Pantoprazole Sodium (Protonix Inj) 40 mg IVP Q12 [facility] Last Admin: 03/27/17 10:00 Dose: 40 mg Family Hx: Unable to obtain ROS: Unable to obtain Past Patient History - Past Medical History & Family History Past Medical History?: Yes Past Family History: Reviewed and not pertinent - Past Social History Smoking Status: Heavy Smoker > 10 Cigarettes Daily Drugs: Other (Positive opiates, benzos, and barbs on UDS) Home Situation {Lives}: With Family - CARDIAC Hx Hypertension: Yes Hx Internal Defibrillator: No - PULMONARY Hx Respiratory Disorders: No Hx Asthma: Yes Hx Bronchitis: No Hx Chronic Obstructive Pulmonary Disease (COPD): No Hx Emphysema: No Hx Pneumonia: No Hx Respiratory Aspiration: No Hx Respiratory Tract Infection: Yes Hx Sleep Apnea: No Hx Tuberculosis: No - NEUROLOGICAL Hx Neurological Disorder: No Hx Alzheimer's Disease: No HX Cerebrovascular Accident: No Hx Dementia: No Hx Dizziness: Yes Hx Meningitis: No Hx Migraine: Yes Hx Parkinson's Disease: No Hx Seizures: No Hx Transient Ischemic Attacks (TIA): No - HEENT Hx HEENT Problems: No Hx Blind: No Hx Cataracts: No Hx Deafness: No Hx Difficulty Chewing: No Hx Epistaxis: No Hx Glaucoma: No Hx Macular Degeneration: No - RENAL Hx Chronic Kidney Disease: No Hx Dialysis: No Hx Kidney Stones: No Hx Neurogenic Bladder: No Hx Pyelonephritis: No Hx Renal (Kidney) Cancer: No Hx Renal Failure: No - ENDOCRINE/METABOLIC Hx Endocrine Disorders: No Hx Adrenal Cancer: No Hx Diabetes Insipidus: No Hx Diabetes Mellitus Type 1: No Hx Diabetes Mellitus Type 2: No Hx Hyperthyroidism: No Hx Hypothyroidism: No Hx Systemic Lupus Erythematosus: No - HEMATOLOGICAL/ONCOLOGICAL Hx Blood Transfusions: No Hx Blood Transfusion Reaction: No - INTEGUMENTARY Hx Dermatological Problems: No Hx Basil Cell: No Hx Eczema: No Hx Melanoma: No Hx Psoriasis: No Hx Squamous Cell: No - MUSCULOSKELETAL/RHEUMATOLOGICAL Hx Musculoskeletal Disorders: No - GASTROINTESTINAL Other/Comment: Liver damage - GENITOURINARY/GYNECOLOGICAL Hx Genitourinary Disorders: No Hx Hematuria: No Hx Incontinence: No Hx Prostate Problems: No Hx Sexually Transmitted Disorders: No Hx Urinary Tract Infection: No - PSYCHIATRIC Hx Depression: Yes Hx Substance Use: No - SURGICAL HISTORY Hx Surgeries: No - ANESTHESIA Hx Anesthesia Reactions: No Hx Malignant Hyperthermia: No Meds Allergies/Adverse Reactions: Allergies Allergy/AdvReac Type Severity Reaction Status Date / Time No Known Allergies Allergy Verified 03/11/17 23:03 - Medications Medications: Current Medications Acetaminophen (Tylenol 325 Mg Supp) 325 mg RC Q4H PRN PRN Reason: Fever >100.4 F Last Admin: 03/27/17 09:42 Dose: 325 mg Albuterol/Ipratropium (Duoneb 3 Mg/0.5 Mg (3 Ml) Ud) 3 ml IH Q2H PRN PRN Reason: Shortness of Breath Last Admin: 03/13/17 15:45 Dose: 3 ml Albuterol/Ipratropium (Duoneb 3 Mg/0.5 Mg (3 Ml) Ud) 3 ml IH [id number] [facility] Last Admin: 03/27/17 13:56 Dose: 3 ml Chlorhexidine Gluconate (Peridex) 15 ml PO BID [facility] Last Admin: 03/27/17 17:33 Dose: 15 ml Propofol (Diprivan) 1,000 mg in 100 mls @ 3.674 mls/hr IV .Q24H PRN; Protocol; 5 MCG/KG/MIN PRN Reason: TITRATE PER MD ORDER Last Admin: 03/27/17 12:30 Dose: 50 mcg/kg/min, 36.741 mls/hr Phenytoin 100 mg/ Sodium (Chloride) 52 mls @ 104 mls/hr IVPB TID [facility] Last Admin: 03/27/17 14:45 Dose: 104 mls/hr Valproate Sodium 500 mg/ (Sodium Chloride) 105 mls @ 100 mls/hr IVPB Q8 [facility] Last Admin: 03/27/17 14:26 Dose: 100 mls/hr Midazolam 100 mg/100ml in NS (Midazolam 100 Mg/100ml In Ns) 100 mg in 100 mls @ 20 mls/hr IV .Q5H PRN; Protocol; 20 MG/HR PRN Reason: Sedation Last Admin: 03/27/17 15:24 Dose: 30 mg/hr, 30 mls/hr Vancomycin HCl (Vancomycin 1gm) 1 gm in 250 mls @ 167 mls/hr IVPB Q12H [facility] PRN Reason: Protocol Last Admin: 03/27/17 09:43 Dose: 167 mls/hr Levetiracetam 1,500 mg/ Sodium (Chloride) 115 mls @ 460 mls/hr IV Q12 [facility] Last Admin: 03/27/17 10:57 Dose: 460 mls/hr Fentanyl Citrate (Fentanyl Citrate/Sodium Chloride 1 Mg/100 Ml) 1,000 mcg in 100 mls @ 2 mls/hr IV .Q24H PRN; Protocol; 20 MCG/HR PRN Reason: TITRATE PER MD ORDER Last Admin: 03/27/17 03:03 Dose: 200 mcg/hr, 20 mls/hr Acetaminophen (Ofirmev) 1,000 mg in 100 mls @ 400 mls/hr IVPB Q6H PRN PRN Reason: fever Stop: 03/29/17 13:44 Last Admin: 03/27/17 14:32 Dose: 400 mls/hr Potassium Chloride 40 meq/ (Sodium Chloride) 1,020 mls @ 60 mls/hr IV .Q17H [facility] Last Admin: 03/27/17 17:34 Dose: 60 mls/hr Magnesium Oxide (Mag-Ox) 400 mg PO TID [facility] Last Admin: 03/27/17 17:33 Dose: 400 mg Metoprolol Tartrate (Lopressor) 5 mg IVP Q4 PRN PRN Reason: sbp>160 or HR > 130 BPM Last Admin: 03/26/17 21:48 Dose: 5 mg Metoprolol Tartrate (Lopressor) 12.5 mg PO BID [facility] Last Admin: 03/27/17 17:32 Dose: 12.5 mg Pantoprazole Sodium (Protonix Inj) 40 mg IVP Q12 [facility] Last Admin: 03/27/17 10:00 Dose: 40 mg Physical Exam - Constitutional Appears: Chronically Ill Additional comments: Obtunded, Intubated, and Ventilated. - Head Exam Additional comments: trach in place. - ENT Exam ENT Exam: Mucous Membranes Moist, Normal External Ear Exam, TM's Normal Bilaterally - Neck Exam Neck exam: Positive for: Full Rom, Normal Inspection - Respiratory Exam Respiratory Exam: Clear to Auscultation Bilateral, NORMAL BREATHING PATTERN. absent: Rales, Rhonchi, Wheezes - Cardiovascular Exam Cardiovascular Exam: REGULAR RHYTHM, RRR, +S1, +S2 - GI/Abdominal Exam GI & Abdominal Exam: Normal Bowel Sounds, Soft. absent: Distended, Tenderness - Extremities Exam Extremities exam: Positive for: joint swelling, pedal edema - Neurological Exam Additional comments: intubated and ventilated. poorly responsive. - Skin Additional comments: diffuse edema. Results - Vital Signs Recent Vital Signs: Last Vital Signs Temp 101.4 F H 03/27/17 16:00 Pulse 132 H 03/27/17 18:50 Resp 22 03/27/17 07:58 BP 158/96 H 03/27/17 18:30 Pulse Ox 100 03/27/17 18:50 - Labs Result Diagrams: 03/27/17 14:30 03/27/17 05:00 Labs: Laboratory Results - last 24 hr 03/26/17 03/26/17 03/27/17 22:08 22:39 05:00 WBC 8.6 D RBC 2.70 L Hgb 7.8 L Hct 24.4 L MCV 90.4 MCH 28.9 MCHC 32.0 RDW 14.3 Plt Count 317 MPV 9.6 Gran % Lymph % (Auto) Quay % (Auto) Eos % (Auto) Baso % (Auto) Gran # Lymph # Quay # Eos # Baso # pCO2 pO2 HCO3 ABG pH ABG Total CO2 ABG O2 Saturation ABG O2 Content ABG Base Excess ABG Hemoglobin ABG Carboxyhemoglobin POC ABG HHb (Measured) ABG Methemoglobin ABG O2 Capacity Hgb O2 Saturation FiO2 Sodium Potassium Chloride Carbon Dioxide Anion Gap BUN Creatinine Est GFR ( Amer) Est GFR (Non-Af Amer) POC Glucose (mg/dL) 106 Random Glucose Calcium Phosphorus Magnesium Total Bilirubin AST ALT Alkaline Phosphatase Total Protein Albumin Globulin Albumin/Globulin Ratio Procalcitonin Urine Color Urine Appearance Urine pH Ur Specific [place] Urine Protein Urine Glucose (UA) Urine Ketones Urine Blood Urine Nitrate Urine Bilirubin Urine Urobilinogen Ur Leukocyte Esterase Urine RBC Urine WBC Ur Epithelial Cells Urine Osmolality 415 Ur Random Sodium 97 Ur Random Potassium 18.3 Ur Random Urea Nitrogn 345 03/27/17 03/27/17 03/27/17 05:00 09:30 11:25 WBC RBC Hgb Hct MCV MCH MCHC RDW Plt Count MPV Gran % Lymph % (Auto) Quay % (Auto) Eos % (Auto) Baso % (Auto) Gran # Lymph # Quay # Eos # Baso # pCO2 37 pO2 145.0 H HCO3 26.3 ABG pH 7.46 H ABG Total CO2 27.4 ABG O2 Saturation 99.7 H ABG O2 Content 12.2 L ABG Base Excess 2.4 ABG Hemoglobin 8.7 L ABG Carboxyhemoglobin 1.6 H POC ABG HHb (Measured) 0.3 ABG Methemoglobin 1.3 ABG O2 Capacity 12.2 L Hgb O2 Saturation 96.8 FiO2 35.0 Sodium 145 Potassium 3.4 L Chloride 107 Carbon Dioxide 25 Anion Gap 16 BUN 7 Creatinine 0.5 L Est GFR ( Amer) > 60 Est GFR (Non-Af Amer) > 60 POC Glucose (mg/dL) Random Glucose 98 Calcium 8.6 Phosphorus 3.7 Magnesium 1.6 L Total Bilirubin 1.6 H AST 60 H D ALT 42 Alkaline Phosphatase 125 Total Protein 7.2 Albumin 3.1 Globulin 4.0 Albumin/Globulin Ratio 0.8 L Procalcitonin 0.26 Urine Color Urine Appearance Urine pH Ur Specific [place] Urine Protein Urine Glucose (UA) Urine Ketones Urine Blood Urine Nitrate Urine Bilirubin Urine Urobilinogen Ur Leukocyte Esterase Urine RBC Urine WBC Ur Epithelial Cells Urine Osmolality Ur Random Sodium Ur Random Potassium Ur Random Urea Nitrogn 03/27/17 03/27/17 14:00 14:30 WBC 8.6 RBC 3.08 L Hgb 9.0 L Hct 28.3 L MCV 91.9 MCH 29.2 MCHC 31.8 RDW 14.3 Plt Count 321 MPV 10.5 Gran % 63.5 Lymph % (Auto) 17.9 L Quay % (Auto) 15.5 H Eos % (Auto) 2.4 Baso % (Auto) 0.7 Gran # 5.47 Lymph # 1.5 Quay # 1.3 H Eos # 0.2 Baso # 0.06 pCO2 pO2 HCO3 ABG pH ABG Total CO2 ABG O2 Saturation ABG O2 Content ABG Base Excess ABG Hemoglobin ABG Carboxyhemoglobin POC ABG HHb (Measured) ABG Methemoglobin ABG O2 Capacity Hgb O2 Saturation FiO2 Sodium Potassium Chloride Carbon Dioxide Anion Gap BUN Creatinine Est GFR ( Amer) Est GFR (Non-Af Amer) POC Glucose (mg/dL) Random Glucose Calcium Phosphorus Magnesium Total Bilirubin AST ALT Alkaline Phosphatase Total Protein Albumin Globulin Albumin/Globulin Ratio Procalcitonin Urine Color Darlin Urine Appearance Clear Urine pH 6.5 Ur Specific [place] 1.020 Urine Protein 30 H Urine Glucose (UA) Negative Urine Ketones 15 H Urine Blood Negative Urine Nitrate Negative Urine Bilirubin Moderate H Urine Urobilinogen 1.0 H Ur Leukocyte Esterase Negative Urine RBC 1 - 3 Urine WBC 2 - 5 Ur Epithelial Cells 3 - 4 Urine Osmolality Ur Random Sodium Ur Random Potassium Ur Random Urea Nitrogn Assessment & Plan - Assessment and Plan (Free Text) Assessment: 36 yo male who presented with altered mental status and found next to multiple empty pill bottles. The patient was down for unknown period of time. The patient has normal procalcitonin levels. No leukocytosis currently... initial leukocytosis. Development of fevers. Toxicology screen on admission showed Opiates, Barbiturates, and Benzodiazepine. The patient is ventilated and poorly responsive (on sedation however). The patient is on Vancomycin currently. Consider CT scan of chest and abdomen. Noted negative chest X-ray. Consider stopping any medications that may be unnecessary. Will start Cefepime for now Supportive care Thank you for allowing me to participate in the care of the patient, we will follow with you.
[2017-03-27] MEDS: Cefepime 1gm in NS 100ml 1 GM/100 ML BAG IVPB SCH (22:59)
[2017-03-28] MEDS: Fentanyl 1000mcg/100ml NS 1,000 MCG/100 ML BAG IV PRN ×5 (01:15→23:13)
[2017-03-28] MEDS: Midazolam 100 mg/100ml in NS 100 MG/100 ML SOL IV PRN ×4 (02:11→20:58)
[2017-03-28] MEDS: Propofol 10 mg/ml 1,000 MG/100 ML VIAL IV PRN ×7 (02:11→23:16)
[2017-03-28] MEDS: Albuterol-Ipratrop 3 mg / 0.5 (3 ml) UD IH SCH ×4 (02:12→20:00)
[2017-03-28] MEDS: Valproate 500 MG in Sodium Chloride 0.9% 100 ML IVPB SCH ×3 (05:22→22:09)
[2017-03-28 05:48] LABS: ARTERIAL BLOOD GAS HCO3 24.6 mmol/L (21-28); ARTERIAL BLOOD GAS O2 CAPACITY 12.9 mL/dl (16-24); ARTERIAL BLOOD GAS O2 CONTENT 12.8 ML/dl (15-23); ARTERIAL BLOOD GAS PH 7.42 (7.35-7.45); ARTERIAL BLOOD HGB O2 SAT 96.1 % (95.0-98.0); CARBOXYHEMOGLOBIN 1.6 % (0.5-1.5); HHB 1.1 % (0-5); METHEMOGLOBIN 1.2 % (0.0-3.0)
[2017-03-28 06:13] LABS: BASO # 0.11 K/mm3 (0.0-2.0); BASO % 1.3 % (0.0-3.0); EOS # 0.1 (0.0-0.7); EOS % 1.5 % (1.5-5.0); GRAN # 5.15 (1.4-6.5); GRAN % 61.4 % (50.0-68.0); HEMATOCRIT 28.3 % (42.0-52.0); LYMPH # 1.8 (1.2-3.4); LYMPH % 21.4 % (22.0-35.0); MEAN CELL VOLUME 90.7 fl (80.0-105.0); MEAN CORPUSCULAR HEMOGLOBIN 28.8 pg (25.0-35.0); MEAN CORPUSCULAR HGB CONC 31.8 g/dl (31.0-37.0); MONO # 1.2 (0.1-0.6); MONO % 14.4 % (1.0-6.0); RED CELL DISTRIBUTION WIDTH 14.1 % (11.5-14.5); WHITE BLOOD COUNT 8.4 10^3/ul (4.5-11.0)
[2017-03-28 06:18] LABS: ALB/GLOB RATIO 0.8 (1.1-1.8); ALKALINE PHOSPHATASE 175 U/L (38-126); ALT/SGPT 39 U/L (7-56); AST/SGOT 66 U/L (17-59); BILIRUBIN,TOTAL 1.4 mg/dL (0.2-1.3); BLOOD UREA NITROGEN 8 mg/dL (7-21); CALCIUM 8.7 mg/dL (8.4-10.5); CARBON DIOXIDE 26 mmol/L (21-33); CHLORIDE 105 mmol/L (98-107); GFR AFRICAN-AMERICAN > 60; GLUCOSE,RANDOM 93 mg/dL (70-110); MAGNESIUM 1.5 mg/dL (1.7-2.2); POTASSIUM 3.8 mmol/L (3.6-5.0); SODIUM 143 mmol/L (132-148); TOTAL PROTEIN 7.6 g/dL (5.8-8.3)
[2017-03-28] MEDS ORDERED: Magnesium Sulfate 2 GM in Sodium Chloride 0.9% 100 ML IVPB ONE (07:59)
--- NOTE | 2017-03-28 08:42 | CP.PCM.PN ---
Subjective - Date & Time of Evaluation Date of Evaluation: 03/28/17 Time of Evaluation: 08:39 - Subjective Subjective: General Surgery: Dr Reyes Pt seen and examined in ICU. Remains on vent and sedated. Unresponsive to verbal stimulus. Tolerating tube feeds. Tracheostomy in adequate position. Tube feed source being changed as per dietary recommendations. Objective - Vital Signs/Intake and Output Vital Signs (last 24 hours): Temp Pulse Resp BP Pulse Ox 99.7 F H 128 H 18 151/103 H 100 03/28/17 04:00 03/28/17 05:50 03/28/17 07:45 03/28/17 06:00 03/28/17 07:45 Intake and Output: 03/28/17 03/28/17 06:59 18:59 Intake Total 3577 Output Total 1600 Balance 1977 - Medications Medications: Current Medications Acetaminophen (Tylenol 325 Mg Supp) 325 mg RC Q4H PRN PRN Reason: Fever >100.4 F Last Admin: 03/27/17 09:42 Dose: 325 mg Albuterol/Ipratropium (Duoneb 3 Mg/0.5 Mg (3 Ml) Ud) 3 ml IH Q2H PRN PRN Reason: Shortness of Breath Last Admin: 03/13/17 15:45 Dose: 3 ml Albuterol/Ipratropium (Duoneb 3 Mg/0.5 Mg (3 Ml) Ud) 3 ml IH [id number] [facility] Last Admin: 03/28/17 07:45 Dose: 3 ml Chlorhexidine Gluconate (Peridex) 15 ml PO BID [facility] Last Admin: 03/27/17 17:33 Dose: 15 ml Propofol (Diprivan) 1,000 mg in 100 mls @ 3.674 mls/hr IV .Q24H PRN; Protocol; 5 MCG/KG/MIN PRN Reason: TITRATE PER MD ORDER Last Admin: 03/28/17 06:48 Dose: 50 mcg/kg/min, 36.741 mls/hr Phenytoin 100 mg/ Sodium (Chloride) 52 mls @ 104 mls/hr IVPB TID [facility] Last Admin: 03/27/17 19:00 Dose: 104 mls/hr Valproate Sodium 500 mg/ (Sodium Chloride) 105 mls @ 100 mls/hr IVPB Q8 [facility] Last Admin: 03/28/17 05:22 Dose: 100 mls/hr Midazolam 100 mg/100ml in NS (Midazolam 100 Mg/100ml In Ns) 100 mg in 100 mls @ 20 mls/hr IV .Q5H PRN; Protocol; 20 MG/HR PRN Reason: Sedation Last Admin: 03/28/17 05:21 Dose: 30 mg/hr, 30 mls/hr Vancomycin HCl (Vancomycin 1gm) 1 gm in 250 mls @ 167 mls/hr IVPB Q12H [facility] PRN Reason: Protocol Last Admin: 03/27/17 21:23 Dose: 167 mls/hr Levetiracetam 1,500 mg/ Sodium (Chloride) 115 mls @ 460 mls/hr IV Q12 [facility] Last Admin: 03/27/17 22:34 Dose: 460 mls/hr Fentanyl Citrate (Fentanyl Citrate/Sodium Chloride 1 Mg/100 Ml) 1,000 mcg in 100 mls @ 2 mls/hr IV .Q24H PRN; Protocol; 20 MCG/HR PRN Reason: TITRATE PER MD ORDER Last Admin: 03/28/17 06:51 Dose: 200 mcg/hr, 20 mls/hr Acetaminophen (Ofirmev) 1,000 mg in 100 mls @ 400 mls/hr IVPB Q6H PRN PRN Reason: fever Stop: 03/29/17 13:44 Last Admin: 03/27/17 14:32 Dose: 400 mls/hr Potassium Chloride 40 meq/ (Sodium Chloride) 1,020 mls @ 60 mls/hr IV .Q17H [facility] Last Admin: 03/27/17 17:34 Dose: 60 mls/hr Cefepime HCl (Maxipime 1gm) 1 gm in 100 mls @ 100 mls/hr IVPB Q12 [facility] PRN Reason: Protocol Last Admin: 03/27/17 22:59 Dose: 100 mls/hr Magnesium Sulfate 2 gm/ Sodium (Chloride) 104 mls @ 102 mls/hr IVPB ONCE ONE Stop: 03/28/17 09:00 Magnesium Oxide (Mag-Ox) 400 mg PO TID [facility] Last Admin: 03/27/17 17:33 Dose: 400 mg Metoprolol Tartrate (Lopressor) 5 mg IVP Q4 PRN PRN Reason: sbp>160 or HR > 130 BPM Last Admin: 03/26/17 21:48 Dose: 5 mg Metoprolol Tartrate (Lopressor) 12.5 mg PO BID [facility] Last Admin: 03/27/17 17:32 Dose: 12.5 mg Pantoprazole Sodium (Protonix Inj) 40 mg IVP Q12 [facility] Last Admin: 03/27/17 21:46 Dose: 40 mg - Labs Labs: 03/28/17 05:15 03/28/17 05:15 PT 11.9 Seconds (9.9-11.8) H 03/22/17 05:30 INR 1.10 (0.93-1.08) H 03/22/17 05:30 APTT 24.9 Seconds (23.7-30.8) 03/22/17 05:30 - Constitutional Appears: Chronically Ill - Respiratory Exam Respiratory Exam: absent: Accessory Muscle Use, Respiratory Distress - Cardiovascular Exam Cardiovascular Exam: REGULAR RHYTHM. absent: Tachycardia - GI/Abdominal Exam Additional comments: gastrostomy tube c/d/i, functioning: dressing changed midline incision c/d/i - Neurological Exam Neurological Exam: absent: Alert, Awake - Skin Skin Exam: Normal Color Assessment and Plan - Assessment and Plan (Free Text) Assessment: 36M POD#3 s/p tracheostomy and gastrostomy tube placement Plan: tube feeds changed as per dietary recommendations continue to increase to goal as tolerated OK to removed NGT dressing changes PRN per nursing surgery will sign off, reconsult PRN will remove sutures on 04/04 will d/w Dr Barnhart (covering for Dr Reyes) [place], PGY3
--- NOTE | 2017-03-28 09:16 | PN ---
[facility] T[employer]ER NOTE DATE: 03/28/2017 SUBJECTIVE: The patient is unresponsive on the ventilator, continues to have fever. The patient does have a trach and a PEG tube in place and at this time with medications, he is hemodynamically stable. Note that the patient does have a little tachycardia. PHYSICAL EXAMINATION: VITAL SIGNS: Note that his temperature is 99.7, his pulse is 128, respirations are 18, and his blood pressure is 151/103. SKIN: Warm and dry. HEENT: Head; atraumatic and normocephalic. Ears, nose, and throat seemed to be within normal limits. NECK: Supple. No JVD. No thyroid enlargement. No lymph nodes. HEART: Has regular rate and rhythm. Normal S1 and S2 with tachycardic. LUNGS: Reveal mild rhonchi bilaterally. ABDOMEN: Soft; decreased bowel sounds. GENITALIA: Deferred. RECTAL: Deferred. MUSCULOSKELETAL: No joint deformities. EXTREMITIES: Reveal positive lower extremity edema. NEUROLOGIC: The patient is basically unresponsive on the ventilator. LABORATORY DATA: As far as his laboratories are concerned, his white count is 8.4, hemoglobin is 9.0, hematocrit 28.3 with platelets of 358,000. The patient's sodium is 143, potassium is 3.8, chloride 104, CO2 of 26 with a BUN of 8, creatinine of 0.4, and a glucose of 93. Arterial blood gas reveals a pH of 7.42, pCO2 of 38, pO2 of 135. Chest x-ray is pending. IMPRESSION: This patient was initially presented with cardiac arrest secondary to drug overdose. He continues to have respiratory failure and adult respiratory distress syndrome. The patient also has renal insufficiency, anemia, and altered mental status. PLAN: We will continue with ventilator support and a pulmonary toilet. The patient is getting chest x-ray and arterial blood gases on a daily schedule, and we will continue with his bronchodilators of DuoNeb, Dilantin, his Fentanyl, Keppra, antibiotics which is vancomycin as well as Tylenol and Diprivan. We will continue to treat aggressively along with the other consultants and the primary care doctor. Ramon Zavaleta MD [facility] # [id number]
[2017-03-28] MEDS: Vancomycin 1gm in NS 250ml 1 GM/250 ML BAG IVPB SCH ×2 (09:56→21:08)
[2017-03-28] MEDS: Magnesium Oxide 400 mg Tab UD PO SCH ×3 (09:57→17:57)
[2017-03-28] MEDS: Cefepime 1gm in NS 100ml 1 GM/100 ML BAG IVPB SCH ×2 (09:57→22:17)
[2017-03-28] MEDS: Chlorhexidine 0.12% Oral Sol 480 ml Bot PO SCH (09:58)
--- NOTE | 2017-03-28 10:38 | CP.PCM.PN ---
<Manuel Lambert - Last Filed: 03/28/17 10:30> Subjective - Date & Time of Evaluation Date of Evaluation: 03/28/17 Time of Evaluation: 10:00 - Subjective Subjective: Medicine Progress Note: Pt seen and examined at bedside. No Acute events overnight. Still febrile overnight. Pt is still trached, peg, and sedated with diprivan, versed, and fentanyl ROS unobtainable due to clinical status. Objective - Vital Signs/Intake and Output Vital Signs (last 24 hours): Temp Pulse Resp BP Pulse Ox 99.7 F H 129 H 18 153/87 H 100 03/28/17 04:00 03/28/17 09:57 03/28/17 07:45 03/28/17 09:57 03/28/17 07:45 Intake and Output: 03/28/17 03/28/17 06:59 18:59 Intake Total 3577 Output Total 1600 Balance 1977 - Medications Medications: Current Medications Acetaminophen (Tylenol 325 Mg Supp) 325 mg RC Q4H PRN PRN Reason: Fever >100.4 F Last Admin: 03/27/17 09:42 Dose: 325 mg Albuterol/Ipratropium (Duoneb 3 Mg/0.5 Mg (3 Ml) Ud) 3 ml IH Q2H PRN PRN Reason: Shortness of Breath Last Admin: 03/13/17 15:45 Dose: 3 ml Albuterol/Ipratropium (Duoneb 3 Mg/0.5 Mg (3 Ml) Ud) 3 ml IH [id number] [facility] Last Admin: 03/28/17 07:45 Dose: 3 ml Propofol (Diprivan) 1,000 mg in 100 mls @ 3.674 mls/hr IV .Q24H PRN; Protocol; 5 MCG/KG/MIN PRN Reason: TITRATE PER MD ORDER Last Admin: 03/28/17 06:48 Dose: 50 mcg/kg/min, 36.741 mls/hr Phenytoin 100 mg/ Sodium (Chloride) 52 mls @ 104 mls/hr IVPB TID [facility] Last Admin: 03/27/17 19:00 Dose: 104 mls/hr Valproate Sodium 500 mg/ (Sodium Chloride) 105 mls @ 100 mls/hr IVPB Q8 [facility] Last Admin: 03/28/17 05:22 Dose: 100 mls/hr Midazolam 100 mg/100ml in NS (Midazolam 100 Mg/100ml In Ns) 100 mg in 100 mls @ 20 mls/hr IV .Q5H PRN; Protocol; 20 MG/HR PRN Reason: Sedation Last Admin: 03/28/17 05:21 Dose: 30 mg/hr, 30 mls/hr Vancomycin HCl (Vancomycin 1gm) 1 gm in 250 mls @ 167 mls/hr IVPB Q12H [facility] PRN Reason: Protocol Last Admin: 03/28/17 09:56 Dose: 167 mls/hr Levetiracetam 1,500 mg/ Sodium (Chloride) 115 mls @ 460 mls/hr IV Q12 [facility] Last Admin: 03/27/17 22:34 Dose: 460 mls/hr Fentanyl Citrate (Fentanyl Citrate/Sodium Chloride 1 Mg/100 Ml) 1,000 mcg in 100 mls @ 2 mls/hr IV .Q24H PRN; Protocol; 20 MCG/HR PRN Reason: TITRATE PER MD ORDER Last Admin: 03/28/17 06:51 Dose: 200 mcg/hr, 20 mls/hr Acetaminophen (Ofirmev) 1,000 mg in 100 mls @ 400 mls/hr IVPB Q6H PRN PRN Reason: fever Stop: 03/29/17 13:44 Last Admin: 03/27/17 14:32 Dose: 400 mls/hr Potassium Chloride 40 meq/ (Sodium Chloride) 1,020 mls @ 60 mls/hr IV .Q17H [facility] Last Admin: 03/27/17 17:34 Dose: 60 mls/hr Cefepime HCl (Maxipime 1gm) 1 gm in 100 mls @ 100 mls/hr IVPB Q12 [facility] PRN Reason: Protocol Last Admin: 03/28/17 09:57 Dose: 100 mls/hr Lorazepam (Ativan) 2 mg IVP Q4H PRN; Protocol PRN Reason: Anxiety Magnesium Oxide (Mag-Ox) 400 mg PO TID [facility] Last Admin: 03/28/17 09:57 Dose: 400 mg Metoprolol Tartrate (Lopressor) 5 mg IVP Q4 PRN PRN Reason: sbp>160 or HR > 130 BPM Last Admin: 03/26/17 21:48 Dose: 5 mg Metoprolol Tartrate (Lopressor) 12.5 mg PO BID [facility] Last Admin: 03/28/17 09:57 Dose: 12.5 mg Pantoprazole Sodium (Protonix Inj) 40 mg IVP Q12 [facility] Last Admin: 03/28/17 09:57 Dose: 40 mg - Labs Labs: 03/28/17 05:15 03/28/17 05:15 PT 11.9 Seconds (9.9-11.8) H 03/22/17 05:30 INR 1.10 (0.93-1.08) H 03/22/17 05:30 APTT 24.9 Seconds (23.7-30.8) 03/22/17 05:30 - Constitutional Appears: No Acute Distress - Head Exam Head Exam: ATRAUMATIC, NORMOCEPHALIC - Eye Exam Eye Exam: EOMI, PERRL - ENT Exam ENT Exam: Mucous Membranes Moist - Respiratory Exam Respiratory Exam: Clear to Ausculation Bilateral. absent: Rales, Rhonchi, Wheezes - Cardiovascular Exam Cardiovascular Exam: Tachycardia, +S1, +S2 - GI/Abdominal Exam GI & Abdominal Exam: Soft. absent: Tenderness - Extremities Exam Extremities Exam: absent: Calf Tenderness, Pedal Edema - Neurological Exam Neurological Exam: Alert, Awake, Oriented x3 - Psychiatric Exam Psychiatric exam: Normal Affect - Skin Skin Exam: Dry, Intact, Warm Assessment and Plan - Assessment and Plan (Free Text) Assessment: 36 y/o male with PMH of substance abuse presents with drug overdose, with multiple substances (+BZDs, barbiturate, Opiates), s/p ROSC after cardiac arrest x 3, unknown initial downtime at home. Pt developed anoxic brain injury from his cardiac arrest and now in status epilepticus sedated with Propofol, Versed, and Fentanyl. Hospital course complicated with renal failure and hypernatremia which have both resolved. Patient began running a fever on IV abx - Vanc. Septic workup thus far negative. Patient is s/p tracheostomy and PEG day#3. Prognosis discussed with family, who are hopeful patient will have a meaningful recovery. Plan: Neuro: -Patient intubated and sedated -Will taper Versed and add Ativan 2mg Q4H prn as needed -Neurochecks -Urine toxicology positive for opiates, barbiturates and benzos on admission -Repeat EEG demonstrates anoxic brain injury and poor prognosis -Brain MRI showed anoxic injury in thalamic region bilaterally -Will continue to attempt weaning trials as tolerated -Seizures - Continue Fentanyl 200mcg/hr, Midazolam 40mcg/hr, Propofol 50mcg/hr. Valproate, keppra and Dilantin. -Seizure precautions -F/u palliative recs -Family agreeable to LTACH. Awaiting approval Cardio: -EKG reviewed; atrial fibrillation with slow ventricular response (51bpm), nonspecific intraventricular block -Patient sinus tachycardic at 130. Likely 2/2 to seizure activity. Will continue to monitor -F/u cardiology recs Pulm: -35// -Patient Tracheostomy s/p day#3 -CXR showed limited increased in atelectasis and possible infiltrate at left base with none at the right. Negative pleural effusion or pneumothorax -patient pO2 stable. Patient's FiO2 40%%. Will monitor closely -Continue serial CXR and ABG GI: -Tube feeds to start today -NGT may remove once tube feeds started -Protonix -Abd Xray - negative Renal: -Hypernatremic resolved. -Hypokalemia 3.8 today. -Magnesium 1.5 today. Mgso4 2gm -Monitor and replete electrolyte abnormalities as needed -Monitor I's and O's -F/u renal recs Endo: -Fingersticks q2h -Maintain euglycemia between 140-180's -Stress dose steroids, tapering ID: -Febrile - procal 0.26 - Cont Vanc and cefepime as per ID -Will f/u with repeat cultures, and urinalysis neg -Continue Tylenol as needed. -Sputum culture grew Yeast species. -ID consulted for recs - Started Cefepime Rec ordering CT chest/abd/pel to r/o any source of infection Heme: - Monitor H/H - Hb of 9 - Cont to monitor GI/DVT Prophylaxis -Protonix/SCD's Pt and plan was seen, reviewed and discussed in detail with Dr Carlos. <Miguel Carlos - Last Filed: 03/28/17 11:58> Objective - Vital Signs/Intake and Output Vital Signs (last 24 hours): Temp Pulse Resp BP Pulse Ox 99.7 F H 129 H 18 153/87 H 100 03/28/17 04:00 03/28/17 09:57 03/28/17 07:45 03/28/17 09:57 03/28/17 07:45 Intake and Output: 03/28/17 03/28/17 06:59 18:59 Intake Total 3577 Output Total 1600 Balance 1977 - Medications Medications: Current Medications Acetaminophen (Tylenol 325 Mg Supp) 325 mg RC Q4H PRN PRN Reason: Fever >100.4 F Last Admin: 03/27/17 09:42 Dose: 325 mg Albuterol/Ipratropium (Duoneb 3 Mg/0.5 Mg (3 Ml) Ud) 3 ml IH Q2H PRN PRN Reason: Shortness of Breath Last Admin: 03/13/17 15:45 Dose: 3 ml Albuterol/Ipratropium (Duoneb 3 Mg/0.5 Mg (3 Ml) Ud) 3 ml IH [id number] [facility] Last Admin: 03/28/17 07:45 Dose: 3 ml Propofol (Diprivan) 1,000 mg in 100 mls @ 3.674 mls/hr IV .Q24H PRN; Protocol; 5 MCG/KG/MIN PRN Reason: TITRATE PER MD ORDER Last Admin: 03/28/17 06:48 Dose: 50 mcg/kg/min, 36.741 mls/hr Phenytoin 100 mg/ Sodium (Chloride) 52 mls @ 104 mls/hr IVPB TID [facility] Last Admin: 03/28/17 11:43 Dose: 104 mls/hr Valproate Sodium 500 mg/ (Sodium Chloride) 105 mls @ 100 mls/hr IVPB Q8 [facility] Last Admin: 03/28/17 05:22 Dose: 100 mls/hr Midazolam 100 mg/100ml in NS (Midazolam 100 Mg/100ml In Ns) 100 mg in 100 mls @ 20 mls/hr IV .Q5H PRN; Protocol; 20 MG/HR PRN Reason: Sedation Last Admin: 03/28/17 05:21 Dose: 30 mg/hr, 30 mls/hr Vancomycin HCl (Vancomycin 1gm) 1 gm in 250 mls @ 167 mls/hr IVPB Q12H [facility] PRN Reason: Protocol Last Admin: 03/28/17 09:56 Dose: 167 mls/hr Levetiracetam 1,500 mg/ Sodium (Chloride) 115 mls @ 460 mls/hr IV Q12 [facility] Last Admin: 03/28/17 11:43 Dose: 460 mls/hr Fentanyl Citrate (Fentanyl Citrate/Sodium Chloride 1 Mg/100 Ml) 1,000 mcg in 100 mls @ 2 mls/hr IV .Q24H PRN; Protocol; 20 MCG/HR PRN Reason: TITRATE PER MD ORDER Last Admin: 03/28/17 06:51 Dose: 200 mcg/hr, 20 mls/hr Acetaminophen (Ofirmev) 1,000 mg in 100 mls @ 400 mls/hr IVPB Q6H PRN PRN Reason: fever Stop: 03/29/17 13:44 Last Admin: 03/27/17 14:32 Dose: 400 mls/hr Potassium Chloride 40 meq/ (Sodium Chloride) 1,020 mls @ 60 mls/hr IV .Q17H [facility] Last Admin: 03/27/17 17:34 Dose: 60 mls/hr Cefepime HCl (Maxipime 1gm) 1 gm in 100 mls @ 100 mls/hr IVPB Q12 [facility] PRN Reason: Protocol Last Admin: 03/28/17 09:57 Dose: 100 mls/hr Lorazepam (Ativan) 2 mg IVP Q4H PRN; Protocol PRN Reason: Anxiety Magnesium Oxide (Mag-Ox) 400 mg PO TID [facility] Last Admin: 03/28/17 09:57 Dose: 400 mg Metoprolol Tartrate (Lopressor) 5 mg IVP Q4 PRN PRN Reason: sbp>160 or HR > 130 BPM Last Admin: 03/26/17 21:48 Dose: 5 mg Metoprolol Tartrate (Lopressor) 12.5 mg PO BID [facility] Last Admin: 03/28/17 09:57 Dose: 12.5 mg Pantoprazole Sodium (Protonix Inj) 40 mg IVP Q12 [facility] Last Admin: 03/28/17 09:57 Dose: 40 mg - Labs Labs: 03/28/17 05:15 03/28/17 05:15 PT 11.9 Seconds (9.9-11.8) H 03/22/17 05:30 INR 1.10 (0.93-1.08) H 03/22/17 05:30 APTT 24.9 Seconds (23.7-30.8) 03/22/17 05:30 Attending/Attestation - Attestation I have personally seen and examined this patient.: Yes I have fully participated in the care of the patient.: Yes I have reviewed all pertinent clinical information, including history, physical exam and plan: Yes Notes (Text): 03/28/17 11:56 Patient was seen and examined with medical file clerk. 36 yrs male with prolonged intubation following cardiac arrest x 2, ARDS and septic shock, He is SP PEG and tracheotomy , Patient is still febrile ,the etiology of fever is unclear, cultures are negative so far, Fever could be due to seizure/ central fever.We will order CT chest and abdomen order today to rule any source of infection, if negative antibiotics can be DC.ID evaluation is appreciated. Patient is having multiple seizure Status epilepticus ?he is sedated on Propofol , Fentanyl and Versed. Keppra ,He is also on Dilantin and Valproic acid .Neurology is following, Hypernatremia is resolved. Prognosis is guarded. 03/28/17 11:58
--- NOTE | 2017-03-28 10:56 | RAD ---
HISTORY: intubated, f/u COMPARISON: 03/27/2017 FINDINGS: LUNGS: No active pulmonary disease. PLEURA: No significant pleural effusion identified, no pneumothorax apparent. CARDIOVASCULAR: Normal. OSSEOUS STRUCTURES: No significant abnormalities. VISUALIZED UPPER ABDOMEN: Normal. OTHER FINDINGS: The endotracheal and nasogastric tubes are in satisfactory position IMPRESSION: No active disease.
[2017-03-28] MEDS: levETIRAcetam 1,500 MG in Sodium Chloride 0.9% 100 ML IV SCH ×2 (11:43→22:21)
--- NOTE | 2017-03-28 12:39 | CP.PCM.PN ---
Subjective - Date & Time of Evaluation Date of Evaluation: 03/28/17 Time of Evaluation: 11:45 - Subjective Subjective: Infectious Disease Follow Up: March 28, 2017 36 yo male who presented initially to [facility] found down for up to 9 hours. The patient was found next to multiple empty pill bottles. The patient has been in the hospital for over 2 weeks at this point. He is in respiratory failure and is now trached. The patient is febrile with shakes. Difficult obtaining history as the patient appears to have lived alone. The patient's I believe is estranged. No clinical changes Objective - Vital Signs/Intake and Output Vital Signs (last 24 hours): Temp Pulse Resp BP Pulse Ox 99.7 F H 129 H 18 153/87 H 100 03/28/17 04:00 03/28/17 09:57 03/28/17 07:45 03/28/17 09:57 03/28/17 07:45 Intake and Output: 03/28/17 03/28/17 06:59 18:59 Intake Total 3577 Output Total 1600 Balance 1976 - Medications Medications: Current Medications Acetaminophen (Tylenol 325 Mg Supp) 325 mg RC Q4H PRN PRN Reason: Fever >100.4 F Last Admin: 03/27/17 09:42 Dose: 325 mg Albuterol/Ipratropium (Duoneb 3 Mg/0.5 Mg (3 Ml) Ud) 3 ml IH Q2H PRN PRN Reason: Shortness of Breath Last Admin: 03/13/17 15:45 Dose: 3 ml Albuterol/Ipratropium (Duoneb 3 Mg/0.5 Mg (3 Ml) Ud) 3 ml IH [id number] [facility] Last Admin: 03/28/17 07:45 Dose: 3 ml Propofol (Diprivan) 1,000 mg in 100 mls @ 3.674 mls/hr IV .Q24H PRN; Protocol; 5 MCG/KG/MIN PRN Reason: TITRATE PER MD ORDER Last Admin: 03/28/17 06:48 Dose: 50 mcg/kg/min, 36.741 mls/hr Phenytoin 100 mg/ Sodium (Chloride) 52 mls @ 104 mls/hr IVPB TID [facility] Last Admin: 03/28/17 11:43 Dose: 104 mls/hr Valproate Sodium 500 mg/ (Sodium Chloride) 105 mls @ 100 mls/hr IVPB Q8 [facility] Last Admin: 03/28/17 05:22 Dose: 100 mls/hr Midazolam 100 mg/100ml in NS (Midazolam 100 Mg/100ml In Ns) 100 mg in 100 mls @ 20 mls/hr IV .Q5H PRN; Protocol; 20 MG/HR PRN Reason: Sedation Last Admin: 03/28/17 05:21 Dose: 30 mg/hr, 30 mls/hr Vancomycin HCl (Vancomycin 1gm) 1 gm in 250 mls @ 167 mls/hr IVPB Q12H [facility] PRN Reason: Protocol Last Admin: 03/28/17 09:56 Dose: 167 mls/hr Levetiracetam 1,500 mg/ Sodium (Chloride) 115 mls @ 460 mls/hr IV Q12 [facility] Last Admin: 03/28/17 11:43 Dose: 460 mls/hr Fentanyl Citrate (Fentanyl Citrate/Sodium Chloride 1 Mg/100 Ml) 1,000 mcg in 100 mls @ 2 mls/hr IV .Q24H PRN; Protocol; 20 MCG/HR PRN Reason: TITRATE PER MD ORDER Last Admin: 03/28/17 06:51 Dose: 200 mcg/hr, 20 mls/hr Acetaminophen (Ofirmev) 1,000 mg in 100 mls @ 400 mls/hr IVPB Q6H PRN PRN Reason: fever Stop: 03/29/17 13:44 Last Admin: 03/27/17 14:32 Dose: 400 mls/hr Potassium Chloride 40 meq/ (Sodium Chloride) 1,020 mls @ 60 mls/hr IV .Q17H [facility] Last Admin: 03/27/17 17:34 Dose: 60 mls/hr Cefepime HCl (Maxipime 1gm) 1 gm in 100 mls @ 100 mls/hr IVPB Q12 [facility] PRN Reason: Protocol Last Admin: 03/28/17 09:57 Dose: 100 mls/hr Lorazepam (Ativan) 2 mg IVP Q4H PRN; Protocol PRN Reason: Anxiety Magnesium Oxide (Mag-Ox) 400 mg PO TID [facility] Last Admin: 03/28/17 09:57 Dose: 400 mg Metoprolol Tartrate (Lopressor) 5 mg IVP Q4 PRN PRN Reason: sbp>160 or HR > 130 BPM Last Admin: 03/26/17 21:48 Dose: 5 mg Metoprolol Tartrate (Lopressor) 12.5 mg PO BID [facility] Last Admin: 03/28/17 09:57 Dose: 12.5 mg Pantoprazole Sodium (Protonix Inj) 40 mg IVP Q12 [facility] Last Admin: 03/28/17 09:57 Dose: 40 mg - Labs Labs: 03/28/17 05:15 03/28/17 05:15 PT 11.9 Seconds (9.9-11.8) H 03/22/17 05:30 INR 1.10 (0.93-1.08) H 03/22/17 05:30 APTT 24.9 Seconds (23.7-30.8) 03/22/17 05:30 - Constitutional Appears: Chronically Ill - Head Exam Additional comments: Obtunded, Intubated, and Ventilated. Trach in place. - ENT Exam ENT Exam: Mucous Membranes Moist, Normal External Ear Exam, TM's Normal Bilaterally Additional comments: trach in place. - Neck Exam Additional comments: no JVD - Respiratory Exam Respiratory Exam: Clear to Ausculation Bilateral, NORMAL BREATHING PATTERN. absent: Rales, Rhonchi, Wheezes - Cardiovascular Exam Cardiovascular Exam: REGULAR RHYTHM, RRR, +S1, +S2 - GI/Abdominal Exam GI & Abdominal Exam: Soft, Normal Bowel Sounds. absent: Distended, Tenderness - Extremities Exam Extremities Exam: Full ROM, Normal Inspection - Neurological Exam Neurological Exam: absent: Alert, Awake, Oriented x3 Additional comments: intubated and ventilated. poorly responsive. - Skin Additional comments: diffuse edema. Assessment and Plan - Assessment and Plan (Free Text) Assessment: 36 yo male who presented with altered mental status and found next to multiple empty pill bottles. The patient was down for unknown period of time. The patient has normal procalcitonin levels. No leukocytosis currently... initial leukocytosis. Development of fevers. Toxicology screen on admission showed Opiates, Barbiturates, and Benzodiazepine. The patient is ventilated and poorly responsive (on sedation however). The patient is on Vancomycin currently. Consider CT scan of chest and abdomen. Noted negative chest X-ray. Consider stopping any medications that may be unnecessary. Continue Cefepime for now. Borderline fevers so far today. Cannot rule out central fever. Supportive care Thank you for allowing me to participate in the care of the patient, we will follow with you.
--- NOTE | 2017-03-28 12:51 | CP.PCM.PN ---
Subjective - Date & Time of Evaluation Date of Evaluation: 03/28/17 Time of Evaluation: 12:00 - Subjective Subjective: Patient continues to spike fever; G-tube being used for meds; Objective - Vital Signs/Intake and Output Vital Signs (last 24 hours): Temp Pulse Resp BP Pulse Ox 99.7 F H 129 H 18 153/87 H 100 03/28/17 04:00 03/28/17 09:57 03/28/17 07:45 03/28/17 09:57 03/28/17 07:45 Intake and Output: 03/28/17 03/28/17 06:59 18:59 Intake Total 3577 Output Total 1600 Balance 1977 - Medications Medications: Current Medications Acetaminophen (Tylenol 325 Mg Supp) 325 mg RC Q4H PRN PRN Reason: Fever >100.4 F Last Admin: 03/27/17 09:42 Dose: 325 mg Albuterol/Ipratropium (Duoneb 3 Mg/0.5 Mg (3 Ml) Ud) 3 ml IH Q2H PRN PRN Reason: Shortness of Breath Last Admin: 03/13/17 15:45 Dose: 3 ml Albuterol/Ipratropium (Duoneb 3 Mg/0.5 Mg (3 Ml) Ud) 3 ml IH [id number] [facility] Last Admin: 03/28/17 07:45 Dose: 3 ml Propofol (Diprivan) 1,000 mg in 100 mls @ 3.674 mls/hr IV .Q24H PRN; Protocol; 5 MCG/KG/MIN PRN Reason: TITRATE PER MD ORDER Last Admin: 03/28/17 06:48 Dose: 50 mcg/kg/min, 36.741 mls/hr Phenytoin 100 mg/ Sodium (Chloride) 52 mls @ 104 mls/hr IVPB TID [facility] Last Admin: 03/28/17 11:43 Dose: 104 mls/hr Valproate Sodium 500 mg/ (Sodium Chloride) 105 mls @ 100 mls/hr IVPB Q8 [facility] Last Admin: 03/28/17 05:22 Dose: 100 mls/hr Midazolam 100 mg/100ml in NS (Midazolam 100 Mg/100ml In Ns) 100 mg in 100 mls @ 20 mls/hr IV .Q5H PRN; Protocol; 20 MG/HR PRN Reason: Sedation Last Admin: 03/28/17 05:21 Dose: 30 mg/hr, 30 mls/hr Vancomycin HCl (Vancomycin 1gm) 1 gm in 250 mls @ 167 mls/hr IVPB Q12H [facility] PRN Reason: Protocol Last Admin: 03/28/17 09:56 Dose: 167 mls/hr Levetiracetam 1,500 mg/ Sodium (Chloride) 115 mls @ 460 mls/hr IV Q12 [facility] Last Admin: 03/28/17 11:43 Dose: 460 mls/hr Fentanyl Citrate (Fentanyl Citrate/Sodium Chloride 1 Mg/100 Ml) 1,000 mcg in 100 mls @ 2 mls/hr IV .Q24H PRN; Protocol; 20 MCG/HR PRN Reason: TITRATE PER MD ORDER Last Admin: 03/28/17 06:51 Dose: 200 mcg/hr, 20 mls/hr Acetaminophen (Ofirmev) 1,000 mg in 100 mls @ 400 mls/hr IVPB Q6H PRN PRN Reason: fever Stop: 03/29/17 13:44 Last Admin: 03/27/17 14:32 Dose: 400 mls/hr Potassium Chloride 40 meq/ (Sodium Chloride) 1,020 mls @ 60 mls/hr IV .Q17H [facility] Last Admin: 03/27/17 17:34 Dose: 60 mls/hr Cefepime HCl (Maxipime 1gm) 1 gm in 100 mls @ 100 mls/hr IVPB Q12 [facility] PRN Reason: Protocol Last Admin: 03/28/17 09:57 Dose: 100 mls/hr Lorazepam (Ativan) 2 mg IVP Q4H PRN; Protocol PRN Reason: Anxiety Magnesium Oxide (Mag-Ox) 400 mg PO TID [facility] Last Admin: 03/28/17 09:57 Dose: 400 mg Metoprolol Tartrate (Lopressor) 5 mg IVP Q4 PRN PRN Reason: sbp>160 or HR > 130 BPM Last Admin: 03/26/17 21:48 Dose: 5 mg Metoprolol Tartrate (Lopressor) 12.5 mg PO BID [facility] Last Admin: 03/28/17 09:57 Dose: 12.5 mg Pantoprazole Sodium (Protonix Inj) 40 mg IVP Q12 [facility] Last Admin: 03/28/17 09:57 Dose: 40 mg - Labs Labs: 03/28/17 05:15 03/28/17 05:15 PT 11.9 Seconds (9.9-11.8) H 03/22/17 05:30 INR 1.10 (0.93-1.08) H 03/22/17 05:30 APTT 24.9 Seconds (23.7-30.8) 03/22/17 05:30 - Constitutional Appears: Non-toxic, No Acute Distress - Head Exam Head Exam: NORMAL INSPECTION - Eye Exam Eye Exam: absent: Scleral icterus - ENT Exam ENT Exam: Mucous Membranes Moist - Respiratory Exam Respiratory Exam: Clear to Ausculation Bilateral. absent: Rales, Rhonchi, Respiratory Distress - Cardiovascular Exam Cardiovascular Exam: Tachycardia, REGULAR RHYTHM, +S1, +S2 - GI/Abdominal Exam GI & Abdominal Exam: Soft. absent: Distended - Extremities Exam Additional comments: pedal edema present, otherwise no leg edema; - Neurological Exam Neurological Exam: absent: Alert - Skin Skin Exam: Warm. absent: Cyanosis Assessment and Plan (1) Acute renal failure Status: Resolved (2) ARDS (adult respiratory distress syndrome) Status: Resolved (3) Polyuria Assessment & Plan: Primarily a solute diuresis secondary to large amount of IV meds/drips, somewhat decreased; continue to try to decrease meds; Status: Acute (4) Electrolyte imbalance Assessment & Plan: Mild hyponatremia improving after starting 1/2NS at 60/hr, continue as patient will continue to have insensible losses due to fever; hypomagnesemia persists despite IV and PO replenishment; should run IV Mag slowly (1g/hr) to avoid renal wasting; Status: Acute
[2017-03-28] MEDS: Potassium Chloride 40 MEQ in Sodium Chloride 0.45% 1,000 ML IV SCH (14:58)
[2017-03-28] MEDS: Metoprolol 1 mg/ml Inj IVP PRN (22:31)
[2017-03-29] MEDS: Midazolam 100 mg/100ml in NS 100 MG/100 ML SOL IV PRN ×3 (02:06→13:00)
[2017-03-29] MEDS: Propofol 10 mg/ml 1,000 MG/100 ML VIAL IV PRN ×7 (02:08→22:28)
[2017-03-29] MEDS: Fentanyl 1000mcg/100ml NS 1,000 MCG/100 ML BAG IV PRN ×2 (04:43→10:45)
[2017-03-29] MEDS: Valproate 500 MG in Sodium Chloride 0.9% 100 ML IVPB SCH ×3 (05:17→21:56)
[2017-03-29 05:31] LABS: ARTERIAL BLOOD GAS O2 CAPACITY 12.4 mL/dl (16-24); ARTERIAL BLOOD GAS O2 CONTENT 12.3 ML/dl (15-23); ARTERIAL BLOOD GAS PH 7.49 (7.35-7.45); CARBOXYHEMOGLOBIN 1.3 % (0.5-1.5); HHB 0.8 % (0-5)
[2017-03-29] MEDS: Metoprolol 1 mg/ml Inj IVP PRN ×3 (06:12→18:48)
[2017-03-29 06:18] LABS: BASO # 0.09 K/mm3 (0.0-2.0); BASO % 1.2 % (0.0-3.0); EOS # 0.2 (0.0-0.7); EOS % 2.3 % (1.5-5.0); GRAN # 5.2 (1.4-6.5); GRAN % 66.7 % (50.0-68.0); HEMATOCRIT 28.8 % (42.0-52.0); LYMPH # 1.3 (1.2-3.4); LYMPH % 17.2 % (22.0-35.0); MEAN CELL VOLUME 89.2 fl (80.0-105.0); MEAN CORPUSCULAR HEMOGLOBIN 28.8 pg (25.0-35.0); MEAN CORPUSCULAR HGB CONC 32.3 g/dl (31.0-37.0); MEAN PLATELET VOLUME 9.8 fl (7.0-11.0); MONO % 12.6 % (1.0-6.0); RED CELL DISTRIBUTION WIDTH 13.6 % (11.5-14.5); WHITE BLOOD COUNT 7.8 10^3/ul (4.5-11.0)
[2017-03-29 07:01] LABS: ALB/GLOB RATIO 0.8 (1.1-1.8); ALKALINE PHOSPHATASE 180 U/L (38-126); ALT/SGPT 38 U/L (7-56); AST/SGOT 61 U/L (17-59); BILIRUBIN,TOTAL 1.2 mg/dL (0.2-1.3); BLOOD UREA NITROGEN 7 mg/dL (7-21); CARBON DIOXIDE 28 mmol/L (21-33); CHLORIDE 101 mmol/L (98-107); GFR AFRICAN-AMERICAN > 60; GLUCOSE,RANDOM 115 mg/dL (70-110); MAGNESIUM 1.3 mg/dL (1.7-2.2); PHOSPHOROUS 3.3 mg/dL (2.5-4.5); POTASSIUM 3.8 mmol/L (3.6-5.0); SODIUM 140 mmol/L (132-148); TOTAL PROTEIN 7.7 g/dL (5.8-8.3)
[2017-03-29] MEDS ORDERED: Magnesium Sulfate 2 GM in Sodium Chloride 0.9% 100 ML IVPB ONE ×2 (08:05→08:20)
--- NOTE | 2017-03-29 08:20 | EEG ---
DATE: 03/26/2017 CONDITION OF THE RECORDING: Drowsy and the patient unresponsive. MEDICATIONS: The patient is on Dilantin and Keppra. DESCRIPTION: Background activity of this tracing was composed of 7 to 8 cycles. Alpha like activities small amount of beta activity 16 to 20 cycles per second was noted in the tracing. Theta activity 5 to 7 per second was noted most of the tracing. Drowsiness was composed of mixed beta and theta activity. Photic stimulation was not done. IMPRESSION: Abnormal electroencephalogram and with isolated sharp waves and paroxysmal activity was noted in the tracing, suggestive of seizure. Clinical correlation needed. Gabriel Rene MD
[2017-03-29] MEDS: Cefepime 1gm in NS 100ml 1 GM/100 ML BAG IVPB SCH ×2 (09:29→21:57)
[2017-03-29] MEDS: Magnesium Oxide 400 mg Tab UD PO SCH ×3 (09:39→17:20)
[2017-03-29] MEDS: levETIRAcetam 1,500 MG in Sodium Chloride 0.9% 100 ML IV SCH ×2 (09:51→21:57)
[2017-03-29] MEDS: Vancomycin 1gm in NS 250ml 1 GM/250 ML BAG IVPB SCH ×2 (10:04→21:56)
--- NOTE | 2017-03-29 10:34 | CP.CCUPN ---
<Fernando Wells - Last Filed: 03/29/17 13:04> CCU Subjective - Physician Review Subjective (Free Text): 03/29/17 10:33 Subjective: Patient seen and examined at bedside. Resting comfortably in bed. Seizure like activity noted overnight. Tachycardia and elevated blood pressure noted and appreciated. Patient is intubated on ventilation and heavily sedated. ROS cannot be attained at this time due to altered mental status. Physical Examination: Head: Positive for: Atraumatic, Normocephalic. Negative for: Ecchymosis, Abrasion, Laceration Eyes: Positive for: Pinpoint but mildly reactive (equal bilaterally) to direct light challenge. Mouth: Positive for: Moist Mucous Membranes, Other (Bite guard in place, ETT absent). Negative for: Drooling Neck: Positive for: Trachea Midline, Other (Trach in place). Negative for: JVD Respiratory/Chest: Positive for: Clear to Auscultation, Good Air Exchange, Rales (mild-moderate rales in all breath segovia, unchanged). Negative for: Accessory Muscle Use, Wheezes, Tachypneic Cardiovascular: Positive for: Normal S1, S2, Tachycardic (120's-130's on bedside monitor). Negative for: Murmurs, Irregular Rhythm Abdomen: Positive for: Feeding Tubes (Gastrostomy tube in place, covered with bandaging), Diminished but present bowel sounds (unchanged from multiple prior exams). Extremities- no clubbing no cynosis Neurological: Positive for: Other (intubated and sedated), likely seizure activity with generalized myotonic jerks and generalized shaking. Skin: Positive for: Warm, Dry, Normal Color. Negative for: Rashes Assessment and Plan: Patient is a 36 yo M with past medical history of substance abuse, depression, bipolar disorder, hypertension, anxiety disorder that who was admitted for evaluation and treatment of AMS. He experienced cardiac arrest in the field ( downtime unknown) due to multi-drug overdose, with two further episodes of cardiac arrest on arrival, and witnessed seizure prior to initiation of increased sedation and paralytics. Remains off paralytics, but remains on high doses of sedatives due to multiple witnessed seizures, likely Status Epilepticus. Have been unable to arrange a transfer to center with 24-hour continuous EEG monitoring and possible phenobarbitol coma; denied at [facility] and [facility], unable to reach [facility]. S/p Trach/G-tube placement POD#4. Overall prognosis is poor. Anoxic brain injury -2/2 multiple cardiac arrests -MRI brain notable for likely anoxic injury in thalamic area bilaterally -Multiple EEGs obtained, mostly notable for active seizure activity and burst- suppresion pattern; poor prognosticative markers -Likely Status Epilepticus; continues to seize through sedation with Propofol/ Versed/Fentanyl and seizure ppx with Dilantin/Keppra/Valproic Acid; next intervention would be barbiturate coma with 24-hour continuous EEG monitoring, but unable to find an accepting facility -Neurology consulted - Dr. Rene, appreciate all recs; poor prognosis given burst suppression pattern on EEG with seizure when weaned from sedation, likely status epilepticus given persisting seizures, needs 24-hour EEG monitoring for Status, which will require a transfer -POD #4 Trach/G-tube -despite grim prognosis and repeated family meetings, family continues to want full code/all measures Cardiac arrest x3 - Resolved -2/2 intentional overdose with multiple medications -UDS on admission notable for Benzos, Barbituates, and Opioids -Initial downtime unclear, likely > 20 minutes, arrested 2 more times at [facility] after arrival -Troponins increased from <0.01 to 0.13 on admission -most recent EKG 03/13, notable for sinus halina to 48 and prolonged QTc at 537 ( unsurprising in setting of multi-drug abuse) -Bradycardia resolved, now persistently Tachycardic 120's-130's > 1 week, likely 2/2 status epilepticus -Cardiology consulted - Dr. Anderson; spoke with Dr. Anderson on 03/26/17, no additional recs at that time, Tachy is likely physiologic -Echo notable for EF 54%, normal size/wall thickness LV, flattened septum, mild Pulm HTN/TR, mild RV dilation -S/p 3 doses of acetadote as per Poison control Severe ARDS - Resolved -White-out in bilateral lung segovia on CXR on admission -severely ventilator dependant on arrival, desating to 50% SaO2 despite 100% FiO2 on admission, required use of parlytics (Nimbex) for > 48 hours; weaned off > 2 weeks -Still ventilator dependant, but now 2/2 anoxic brain injury, lungs clear on serial CXRs and ABGs stable without acidosis or alkalosis -Tolerates Pressure support trials, but unable to wean due to neuro status -PRVC today 35%/8 Peep/400 TV/18 RR Coffee-ground emesis - Resolved -coffee-ground emesis on 03/20, 600cc drainage after NGT set to suction -likely 2/2 NGT tube, tube now removed as G-tube in place and cleared for usage -no free air under the diaphragm or obstruction on Abd CXR -Hgb stable, 9.3 today -H Pylori antigen test ordered -Protonix BID Recurring fevers -likely neuro fevers -blood cx 03/27 1 of 2 positive for G(+) cocci in clusters; may be contamination -empirically covering with Vanc and Cefepime as per ID -ID (Dr. Arguello) following, appreciate all recs -Tmax overnight 100.7F; Tylenol Suppository and Ofirmev as needed to control OTONIEL and elevated LFTs - Resolved -likely injury 2/2 shock from cardiac arrest -both resolved Electrolyte abnormalities -chronically requiring repletion of K and Mg -Mg today 1.3 -May be secondary to polyuria -Nephro following, appreciate all recs Placement -requires placement at LTAC, pending resolution of seizures/Status epilepticus -SW following, has referrals in place -S/p Trach/G-tube Dispo: ICU, intubated/sedated, s/p EEG with burst-suppression pattern, s/p GI bleed suspected 2/2 ulceration from NGT; likely Status Epilepticus, requires 24- hour EEG monitoring and likely Barbiturate coma, denied transfer to [facility] and [facility], unable to contact [facility]; prognosis is very poor, Trach/ G-tube POD#4 FEN: NPO, feeds via G-tube as per supervisor char house Access: Peripheral IVs Consults: Neuro, Cardio, Nephro, Poison Control, Surgery (signed off) Ppx: Protonix covers for GI, SCDs for DVT Patient seen, case discussed with, and plan approved by attending physician, Dr. Call. 03/29/17 13:15 CCU Objective - Vital Signs / Intake & Output Vital Signs (Last 4 hours): Vital Signs Temp Pulse BP Pulse Ox 03/29/17 09:40 129 H 164/113 H 03/29/17 08:50 130 H 100 03/29/17 08:40 125 H 100 03/29/17 08:30 124 H 158/99 H 100 03/29/17 08:20 124 H 100 03/29/17 08:10 125 H 100 03/29/17 08:00 100.4 F H 121 H 143/96 H 100 03/29/17 07:50 123 H 100 03/29/17 07:40 121 H 100 03/29/17 07:30 122 H 157/95 H 100 03/29/17 07:20 123 H 100 03/29/17 07:10 119 H 100 03/29/17 07:00 120 H 158/94 H 100 03/29/17 06:50 119 H 100 03/29/17 06:40 117 H 100 Intake and Output (Last 8hrs): Intake & Output 03/28/17 03/29/17 03/29/17 22:59 06:59 14:59 Intake Total 3150 3607 100 Output Total 2400 4300 Balance 750 -693 100 Intake: IV 2690 3187 100 Left Forearm 2370 2507 Oral 360 Tube Feeding 400 Other 60 60 Output: Urine 2400 4300 Urethral (Armenta) 2400 4300 - Physical Exam Head: Positive for: Atraumatic, Normocephalic. Negative for: Ecchymosis, Abrasion, Laceration Pupils: Positive for: Non-Reactive, Pinpoint. Negative for: PERRL Extroacular Muscles: Positive for: Other (unable to assess due to not following commands, not moving eyes spontaneously, no avoidance of direct light challenge for PERRL assessment; decreased intermittent fluttering of eyelids, eyes remain gazing downward, No doll eyes). Negative for: EOMI Conjunctiva: Negative for: Injected, Icteric Mouth: Positive for: Moist Mucous Membranes, Other (Bite guard in place, ETT absent). Negative for: Drooling Nose (External): Positive for: Atraumatic, Other (NGT in place, no more coffee- ground colored drainage noted). Negative for: Abrasion, Contusion, Laceration Neck: Positive for: Trachea Midline, Other (Trach in place). Negative for: JVD , Lymphadenopathy Respiratory/Chest: Positive for: Clear to Auscultation, Good Air Exchange, Rales (mild-moderate rales in all breath segovia, unchanged). Negative for: Accessory Muscle Use, Wheezes, Tachypneic Cardiovascular: Positive for: Normal S1, S2, Tachycardic (120's-130's on bedside monitor). Negative for: Murmurs, Irregular Rhythm Abdomen: Positive for: Feeding Tubes (Gastrostomy tube in place, covered with bandaging). Negative for: Distention (obese but not distended, soft on palpation, no palpable masses or pulsatile masses), Normal Bowel Sounds ( diminished but present bowel sounds, unchanged from multiple prior exams), Mass/ Organomegaly Upper Extremity: Positive for: Normal Inspection. Negative for: Cyanosis, Edema , Normal ROM, NORMAL PULSES (faintly palpable radials +1), Swelling, Erythema, Deformity Lower Extremity: Positive for: Normal Inspection. Negative for: Edema, NORMAL PULSES (unable to palpate bilateral dorsalis pedis or posterior tibials), Cyanosis, Swelling, Erythema, Deformity Neurological: Positive for: Other (intubated and sedated, now off paralytics for ~12 hrs). Negative for: GCS=15 (GCS 3 (E1 V1t M1)), CN II-XII Intact, Speech Normal, Motor Func Grossly Intact Skin: Positive for: Warm, Dry, Normal Color. Negative for: Rashes Psychiatric: Positive for: Other (sedated and intubated, unable to assess). Negative for: Alert, Oriented x 3, Normal Insight, Normal Concentration, Normal Affect, Normal Mood - Medications Active Medications: Active Medications Generic Name Dose Route Start Last Admin Trade Name Freq PRN Reason Stop Dose Admin Acetaminophen 325 mg 03/22/17 20:47 03/27/17 09:42 Tylenol 325 Mg Supp RC 325 mg Q4H PRN Administration Fever >100.4 F Albuterol/Ipratropium 3 ml 03/13/17 15:07 03/13/17 15:45 Duoneb 3 Mg/0.5 Mg (3 Ml) Ud IH 3 ml Q2H PRN Administration Shortness of Breath Propofol 1,000 mg in 100 mls @ 3.674 mls/hr 03/12/17 07:41 03/29/17 09:24 Diprivan IV 50 mcg/kg/min .Q24H PRN 36.741 mls/hr TITRATE PER MD ORDER Administration Protocol 5 MCG/KG/MIN Phenytoin 100 mg/ Sodium 52 mls @ 104 mls/hr 03/18/17 10:00 03/29/17 09:50 Chloride IVPB 104 mls/hr TID MARICHUY Administration Valproate Sodium 500 mg/ 105 mls @ 100 mls/hr 03/21/17 14:00 03/29/17 05:17 Sodium Chloride IVPB 100 mls/hr Q8 MARICHUY Administration Midazolam 100 mg/100ml in NS 100 mg in 100 mls @ 20 mls/hr 03/21/17 17:30 06:45 Midazolam 100 Mg/100ml In Ns IV 20 mg/hr .Q5H PRN 20 mls/hr Sedation Administration Protocol 20 MG/HR Vancomycin HCl 1 gm in 250 mls @ 167 mls/hr 03/23/17 09:45 03/29/17 10:04 Vancomycin 1gm IVPB 167 mls/hr Q12H MARICHUY Administration Protocol Levetiracetam 1,500 mg/ Sodium 115 mls @ 460 mls/hr 03/24/17 15:20 03/29/17 09:51 Chloride IV 460 mls/hr Q12 MARICHUY Administration Fentanyl Citrate 1,000 mcg in 100 mls @ 2 mls/hr 03/25/17 18:43 03/29/17 04: 43 Fentanyl Citrate/Sodium Chloride 1 Mg/100 Ml IV 200 mcg/hr .Q24H PRN 20 mls/hr TITRATE PER MD ORDER Administration Protocol 20 MCG/HR Acetaminophen 1,000 mg in 100 mls @ 400 mls/hr 03/27/17 13:43 03/28/17 21:29 Ofirmev IVPB 03/29/17 13:44 400 mls/hr Q6H PRN Administration fever Potassium Chloride 40 meq/ 1,020 mls @ 60 mls/hr 03/27/17 14:54 03/28/17 14: 58 Sodium Chloride IV 60 mls/hr .Q17H MARICHUY Administration Cefepime HCl 1 gm in 100 mls @ 100 mls/hr 03/27/17 22:00 03/29/17 09:29 Maxipime 1gm IVPB 100 mls/hr Q12 MARICHUY Administration Protocol Lorazepam 2 mg 03/28/17 10:02 03/29/17 09:36 Ativan IVP 2 mg Q4H PRN Administration Anxiety Protocol Magnesium Oxide 400 mg 03/27/17 10:00 03/29/17 09:39 Mag-Ox PO 400 mg TID MARICHUY Administration Metoprolol Tartrate 5 mg 03/21/17 16:38 03/29/17 06:12 Lopressor IVP 5 mg Q4 PRN Administration sbp>160 or HR > 130 BPM Metoprolol Tartrate 12.5 mg 03/24/17 13:15 03/29/17 09:40 Lopressor PO 12.5 mg BID MARICHUY Administration Pantoprazole Sodium 40 mg 03/20/17 22:00 03/29/17 09:37 Protonix Inj IVP 40 mg Q12 MARICHUY Administration - Patient Studies Lab Studies: Microbiology Studies 03/27/17 09:30 S.aureus & Coag-Neg Staph PNA FISH - Final Blood Blood Culture - Preliminary Gram Positive Cocci Gram Stain - Final 03/23/17 12:00 Blood Culture - Final Blood NO GROWTH AFTER 5 DAYS Gram Stain - Final TEST NOT PERFORMED 03/27/17 14:00 Urine Culture - Final Urine,Armenta No Growth (<1,000 CFU/ML) 03/23/17 10:15 Blood Culture - Final Blood NO GROWTH AFTER 5 DAYS Gram Stain - Final TEST NOT PERFORMED Lab Studies 03/29/17 03/29/17 03/29/17 Range/Units 05:26 05:20 05:20 WBC 7.8 (4.5-11.0) 10^3/ul RBC 3.23 L (3.5-6.1) 10^6/uL Hgb 9.3 L (14.0-18.0) g/dL Hct 28.8 L (42.0-52.0) % MCV 89.2 (80.0-105.0) fl MCH 28.8 (25.0-35.0) pg MCHC 32.3 (31.0-37.0) g/dl RDW 13.6 (11.5-14.5) % Plt Count 359 (120.0-450.0) 10^3/uL MPV 9.8 (7.0-11.0) fl Gran % 66.7 (50.0-68.0) % Lymph % (Auto) 17.2 L (22.0-35.0) % [place] % (Auto) 12.6 H (1.0-6.0) % Eos % (Auto) 2.3 (1.5-5.0) % Baso % (Auto) 1.2 (0.0-3.0) % Gran # 5.20 (1.4-6.5) Lymph # 1.3 (1.2-3.4) [place] # 1.0 H (0.1-0.6) Eos # 0.2 (0.0-0.7) Baso # 0.09 (0.0-2.0) K/mm3 pCO2 38 (35-45) mm/Hg pO2 133.0 H (80-100) mm/Hg HCO3 29.0 H (21-28) mmol/L ABG pH 7.49 H (7.35-7.45) ABG Total CO2 30.2 H (22-28) mmol.L ABG O2 Saturation 99.2 H (95-98) % ABG O2 Content 12.3 L (15-23) ML/dl ABG Base Excess 5.3 H (-2.0-3.0) mmol/L ABG Hemoglobin 8.8 L (11.7-17.4) g/dL ABG Carboxyhemoglobin 1.3 (0.5-1.5) % POC ABG HHb (Measured) 0.8 (0-5) % ABG Methemoglobin 1.0 (0.0-3.0) % ABG O2 Capacity 12.4 L (16-24) mL/dl Hgb O2 Saturation 97.0 (95.0-98.0) % FiO2 35.0 % Sodium 140 (132-148) mmol/L Potassium 3.8 (3.6-5.0) mmol/L Chloride 101 (98-107) mmol/L Carbon Dioxide 28 (21-33) mmol/L Anion Gap 15 (10-20) BUN 7 (7-21) mg/dL Creatinine 0.4 L (0.8-1.5) mg/dL Est GFR ( Amer) > 60 Est GFR (Non-Af Amer) > 60 POC Glucose (mg/dL) (65-110) mg/dL Random Glucose 115 H (70-110) mg/dL Calcium 9.0 (8.4-10.5) mg/dL Phosphorus 3.3 (2.5-4.5) mg/dL Magnesium 1.3 L (1.7-2.2) mg/dL Total Bilirubin 1.2 (0.2-1.3) mg/dL AST 61 H (17-59) U/L ALT 38 (7-56) U/L Alkaline Phosphatase 180 H (38-126) U/L Total Protein 7.7 (5.8-8.3) g/dL Albumin 3.3 (3.0-4.8) g/dL Globulin 4.4 gm/dL Albumin/Globulin Ratio 0.8 L (1.1-1.8) Levetiracetam mcg/mL 03/29/17 03/28/17 03/28/17 Range/Units 00:19 18:26 06:05 WBC (4.5-11.0) 10^3/ul RBC (3.5-6.1) 10^6/uL Hgb (14.0-18.0) g/dL Hct (42.0-52.0) % MCV (80.0-105.0) fl MCH (25.0-35.0) pg MCHC (31.0-37.0) g/dl RDW (11.5-14.5) % Plt Count (120.0-450.0) 10^3/uL MPV (7.0-11.0) fl Gran % (50.0-68.0) % Lymph % (Auto) (22.0-35.0) % [place] % (Auto) (1.0-6.0) % Eos % (Auto) (1.5-5.0) % Baso % (Auto) (0.0-3.0) % Gran # (1.4-6.5) Lymph # (1.2-3.4) [place] # (0.1-0.6) Eos # (0.0-0.7) Baso # (0.0-2.0) K/mm3 pCO2 (35-45) mm/Hg pO2 (80-100) mm/Hg HCO3 (21-28) mmol/L ABG pH (7.35-7.45) ABG Total CO2 (22-28) mmol.L ABG O2 Saturation (95-98) % ABG O2 Content (15-23) ML/dl ABG Base Excess (-2.0-3.0) mmol/L ABG Hemoglobin (11.7-17.4) g/dL ABG Carboxyhemoglobin (0.5-1.5) % POC ABG HHb (Measured) (0-5) % ABG Methemoglobin (0.0-3.0) % ABG O2 Capacity (16-24) mL/dl Hgb O2 Saturation (95.0-98.0) % FiO2 % Sodium (132-148) mmol/L Potassium (3.6-5.0) mmol/L Chloride (98-107) mmol/L Carbon Dioxide (21-33) mmol/L Anion Gap (10-20) BUN (7-21) mg/dL Creatinine (0.8-1.5) mg/dL Est GFR ( Amer) Est GFR (Non-Af Amer) POC Glucose (mg/dL) 114 H 85 112 H (65-110) mg/dL Random Glucose (70-110) mg/dL Calcium (8.4-10.5) mg/dL Phosphorus (2.5-4.5) mg/dL Magnesium (1.7-2.2) mg/dL Total Bilirubin (0.2-1.3) mg/dL AST (17-59) U/L ALT (7-56) U/L Alkaline Phosphatase (38-126) U/L Total Protein (5.8-8.3) g/dL Albumin (3.0-4.8) g/dL Globulin gm/dL Albumin/Globulin Ratio (1.1-1.8) Levetiracetam mcg/mL 03/27/17 03/24/17 Range/Units 23:54 13:45 WBC (4.5-11.0) 10^3/ul RBC (3.5-6.1) 10^6/uL Hgb (14.0-18.0) g/dL Hct (42.0-52.0) % MCV (80.0-105.0) fl MCH (25.0-35.0) pg MCHC (31.0-37.0) g/dl RDW (11.5-14.5) % Plt Count (120.0-450.0) 10^3/uL MPV (7.0-11.0) fl Gran % (50.0-68.0) % Lymph % (Auto) (22.0-35.0) % [place] % (Auto) (1.0-6.0) % Eos % (Auto) (1.5-5.0) % Baso % (Auto) (0.0-3.0) % Gran # (1.4-6.5) Lymph # (1.2-3.4) [place] # (0.1-0.6) Eos # (0.0-0.7) Baso # (0.0-2.0) K/mm3 pCO2 (35-45) mm/Hg pO2 (80-100) mm/Hg HCO3 (21-28) mmol/L ABG pH (7.35-7.45) ABG Total CO2 (22-28) mmol.L ABG O2 Saturation (95-98) % ABG O2 Content (15-23) ML/dl ABG Base Excess (-2.0-3.0) mmol/L ABG Hemoglobin (11.7-17.4) g/dL ABG Carboxyhemoglobin (0.5-1.5) % POC ABG HHb (Measured) (0-5) % ABG Methemoglobin (0.0-3.0) % ABG O2 Capacity (16-24) mL/dl Hgb O2 Saturation (95.0-98.0) % FiO2 % Sodium (132-148) mmol/L Potassium (3.6-5.0) mmol/L Chloride (98-107) mmol/L Carbon Dioxide (21-33) mmol/L Anion Gap (10-20) BUN (7-21) mg/dL Creatinine (0.8-1.5) mg/dL Est GFR ( Amer) Est GFR (Non-Af Amer) POC Glucose (mg/dL) 105 (65-110) mg/dL Random Glucose (70-110) mg/dL Calcium (8.4-10.5) mg/dL Phosphorus (2.5-4.5) mg/dL Magnesium (1.7-2.2) mg/dL Total Bilirubin (0.2-1.3) mg/dL AST (17-59) U/L ALT (7-56) U/L Alkaline Phosphatase (38-126) U/L Total Protein (5.8-8.3) g/dL Albumin (3.0-4.8) g/dL Globulin gm/dL Albumin/Globulin Ratio (1.1-1.8) Levetiracetam 18.8 mcg/mL Laboratory Results - last 24 hr 03/24/17 03/27/17 03/28/17 13:45 23:54 06:05 WBC RBC Hgb Hct MCV MCH MCHC RDW Plt Count MPV Gran % Lymph % (Auto) [place] % (Auto) Eos % (Auto) Baso % (Auto) Gran # Lymph # [place] # Eos # Baso # pCO2 pO2 HCO3 ABG pH ABG Total CO2 ABG O2 Saturation ABG O2 Content ABG Base Excess ABG Hemoglobin ABG Carboxyhemoglobin POC ABG HHb (Measured) ABG Methemoglobin ABG O2 Capacity Hgb O2 Saturation FiO2 Sodium Potassium Chloride Carbon Dioxide Anion Gap BUN Creatinine Est GFR ( Amer) Est GFR (Non-Af Amer) POC Glucose (mg/dL) 105 112 H Random Glucose Calcium Phosphorus Magnesium Total Bilirubin AST ALT Alkaline Phosphatase Total Protein Albumin Globulin Albumin/Globulin Ratio Levetiracetam 18.8 03/28/17 03/29/17 03/29/17 18:26 00:19 05:20 WBC RBC Hgb Hct MCV MCH MCHC RDW Plt Count MPV Gran % Lymph % (Auto) [place] % (Auto) Eos % (Auto) Baso % (Auto) Gran # Lymph # [place] # Eos # Baso # pCO2 pO2 HCO3 ABG pH ABG Total CO2 ABG O2 Saturation ABG O2 Content ABG Base Excess ABG Hemoglobin ABG Carboxyhemoglobin POC ABG HHb (Measured) ABG Methemoglobin ABG O2 Capacity Hgb O2 Saturation FiO2 Sodium 140 Potassium 3.8 Chloride 101 Carbon Dioxide 28 Anion Gap 15 BUN 7 Creatinine 0.4 L Est GFR ( Amer) > 60 Est GFR (Non-Af Amer) > 60 POC Glucose (mg/dL) 85 114 H Random Glucose 115 H Calcium 9.0 Phosphorus 3.3 Magnesium 1.3 L Total Bilirubin 1.2 AST 61 H ALT 38 Alkaline Phosphatase 180 H Total Protein 7.7 Albumin 3.3 Globulin 4.4 Albumin/Globulin Ratio 0.8 L Levetiracetam 03/29/17 03/29/17 05:20 05:26 WBC 7.8 RBC 3.23 L Hgb 9.3 L Hct 28.8 L MCV 89.2 MCH 28.8 MCHC 32.3 RDW 13.6 Plt Count 359 MPV 9.8 Gran % 66.7 Lymph % (Auto) 17.2 L [place] % (Auto) 12.6 H Eos % (Auto) 2.3 Baso % (Auto) 1.2 Gran # 5.20 Lymph # 1.3 [place] # 1.0 H Eos # 0.2 Baso # 0.09 pCO2 38 pO2 133.0 H HCO3 29.0 H ABG pH 7.49 H ABG Total CO2 30.2 H ABG O2 Saturation 99.2 H ABG O2 Content 12.3 L ABG Base Excess 5.3 H ABG Hemoglobin 8.8 L ABG Carboxyhemoglobin 1.3 POC ABG HHb (Measured) 0.8 ABG Methemoglobin 1.0 ABG O2 Capacity 12.4 L Hgb O2 Saturation 97.0 FiO2 35.0 Sodium Potassium Chloride Carbon Dioxide Anion Gap BUN Creatinine Est GFR ( Amer) Est GFR (Non-Af Amer) POC Glucose (mg/dL) Random Glucose Calcium Phosphorus Magnesium Total Bilirubin AST ALT Alkaline Phosphatase Total Protein Albumin Globulin Albumin/Globulin Ratio Levetiracetam Fingerstick Blood Sugar Results: 114 Critical Care Progress Note - Nutrition Nutrition: Nutrition Category Date Time Status NPO Diet [DIET] Diets 03/14/17 Breakfast Ordered <Markus Call - Last Filed: 03/29/17 13:50> CCU Subjective - Physician Review Subjective (Free Text): 03/29/17 13:39 Patient seen and examined, case discussed with resident on rounds, agree with note with following additions/exceptions: Patient is a 36 yo M with past medical history of substance abuse, depression, bipolar disorder, hypertension, anxiety disorder that who was admitted for cardiac arrest in the field (downtime unknown) due to multi-drug overdose, with two further episodes of cardiac arrest on arrival, and witnessed seizure prior to initiation of increased sedation and paralytics. Remains off paralytics, but remains on high doses of sedatives due to multiple witnessed seizures, likely Status Epilepticus. We have been unable to arrange a transfer to center with 24-hour continuous EEG monitoring and possible phenobarbitol coma; denied at [facility] and [facility], S/p Trach/G-tube placement POD#4. Overall prognosis is extremely poor. s/p Cardiac Arrest,unknown downtime Anoxic brain injury, s/p Peg/Trach Seizure disorder, status epilpeticus Recommend: - cont with ventilatory support, PS trials as tolerated - cont with Cefepime, Vanco, follow up ID - BP control - Propofol/Versed/Fentanyl and seizure ppx with Dilantin/Keppra/Valproic Acid, multiple attempts at other institutions for transfer for continuous VEEG monitoring for phenobarb coma have been denied - monitor electrolytes - follow up blood cultures, no current indwelling lines present - follow up neurology - Feeds - GI ppx - DVT ppx - patient is full code - extremely poor prognosis - follow up palliative care CCU Objective - Vital Signs / Intake & Output Vital Signs (Last 4 hours): Vital Signs Pulse BP 03/29/17 13:05 136 H 150/92 H 03/29/17 09:40 129 H 164/113 H Intake and Output (Last 8hrs): Intake & Output 03/28/17 03/29/17 03/29/17 22:59 06:59 14:59 Intake Total 3150 3607 300 Output Total 2400 4300 Balance 750 -693 300 Intake: IV 2690 3187 300 Left Forearm 2370 2507 Oral 360 Tube Feeding 400 Other 60 60 Output: Urine 2400 4300 Urethral (Armenta) 2400 4300 - Medications Active Medications: Active Medications Generic Name Dose Route Start Last Admin Trade Name Freq PRN Reason Stop Dose Admin Acetaminophen 325 mg 03/22/17 20:47 03/27/17 09:42 Tylenol 325 Mg Supp RC 325 mg Q4H PRN Administration Fever >100.4 F Albuterol/Ipratropium 3 ml 03/13/17 15:07 03/13/17 15:45 Duoneb 3 Mg/0.5 Mg (3 Ml) Ud IH 3 ml Q2H PRN Administration Shortness of Breath Propofol 1,000 mg in 100 mls @ 3.674 mls/hr 03/12/17 07:41 03/29/17 09:24 Diprivan IV 50 mcg/kg/min .Q24H PRN 36.741 mls/hr TITRATE PER MD ORDER Administration Protocol 5 MCG/KG/MIN Phenytoin 100 mg/ Sodium 52 mls @ 104 mls/hr 03/18/17 10:00 03/29/17 09:50 Chloride IVPB 104 mls/hr TID MARICHUY Administration Valproate Sodium 500 mg/ 105 mls @ 100 mls/hr 03/21/17 14:00 03/29/17 13:07 Sodium Chloride IVPB 100 mls/hr Q8 MARICHUY Administration Midazolam 100 mg/100ml in NS 100 mg in 100 mls @ 20 mls/hr 03/21/17 17:30 13:00 Midazolam 100 Mg/100ml In Ns IV 03/29/17 16:00 20 mg/hr .Q5H PRN 20 mls/hr Sedation Administration Protocol 20 MG/HR Vancomycin HCl 1 gm in 250 mls @ 167 mls/hr 03/23/17 09:45 03/29/17 10:04 Vancomycin 1gm IVPB 167 mls/hr Q12H MARICHUY Administration Protocol Levetiracetam 1,500 mg/ Sodium 115 mls @ 460 mls/hr 03/24/17 15:20 03/29/17 09:51 Chloride IV 460 mls/hr Q12 MARICHUY Administration Fentanyl Citrate 1,000 mcg in 100 mls @ 2 mls/hr 03/25/17 18:43 03/29/17 10: 45 Fentanyl Citrate/Sodium Chloride 1 Mg/100 Ml IV 03/29/17 16:00 200 mcg/hr .Q24H PRN 20 mls/hr TITRATE PER MD ORDER Administration Protocol 20 MCG/HR Acetaminophen 1,000 mg in 100 mls @ 400 mls/hr 03/27/17 13:43 03/28/17 21:29 Ofirmev IVPB 03/29/17 13:44 400 mls/hr Q6H PRN Administration fever Potassium Chloride 40 meq/ 1,020 mls @ 60 mls/hr 03/27/17 14:54 03/29/17 13: 03 Sodium Chloride IV 60 mls/hr .Q17H MARICHUY Administration Cefepime HCl 1 gm in 100 mls @ 100 mls/hr 03/27/17 22:00 03/29/17 09:29 Maxipime 1gm IVPB 100 mls/hr Q12 MARICHUY Administration Protocol Midazolam HCl 250 mg/ Sodium 250 mls @ 20 mls/hr 03/29/17 16:00 Chloride IV .Q12.5H PRN TITRATE PER PROTOCOL Protocol 20 MG/HR Fentanyl 5,000 mcg/ Sodium 250 mls @ 10 mls/hr 03/29/17 16:00 Chloride IV .Q24H PRN TITRATE PER PROTOCOL Protocol 200 MCG/HR Lorazepam 2 mg 03/28/17 10:02 03/29/17 09:36 Ativan IVP 2 mg Q4H PRN Administration Anxiety Protocol Magnesium Oxide 400 mg 03/27/17 10:00 03/29/17 09:39 Mag-Ox PO 400 mg TID MARICHUY Administration Metoprolol Tartrate 5 mg 03/21/17 16:38 03/29/17 13:05 Lopressor IVP 5 mg Q4 PRN Administration sbp>160 or HR > 130 BPM Metoprolol Tartrate 12.5 mg 03/24/17 13:15 03/29/17 09:40 Lopressor PO 12.5 mg BID MAR[place]UY Administration Pantoprazole Sodium 40 mg 03/20/17 22:00 03/29/17 09:37 Protonix Inj IVP 40 mg Q12 MAR[place]UY Administration - Patient Studies Lab Studies: Microbiology Studies 03/27/17 09:30 S.aureus & Coag-Neg Staph PNA FISH - Final Blood Blood Culture - Preliminary Gram Positive Cocci Gram Stain - Final 03/23/17 12:00 Blood Culture - Final Blood NO GROWTH AFTER 5 DAYS Gram Stain - Final TEST NOT PERFORMED 03/27/17 14:00 Urine Culture - Final Urine,[place] No Growth (<1,000 CFU/ML) 03/23/17 10:15 Blood Culture - Final Blood NO GROWTH AFTER 5 DAYS Gram Stain - Final TEST NOT PERFORMED Lab Studies 03/29/17 03/29/17 03/29/17 Range/Units 11:50 06:40 05:26 WBC (4.5-11.0) 10^3/ul RBC (3.5-6.1) 10^6/uL Hgb (14.0-18.0) g/dL Hct (42.0-52.0) % MCV (80.0-105.0) fl MCH (25.0-35.0) pg MCHC (31.0-37.0) g/dl RDW (11.5-14.5) % Plt Count (120.0-450.0) 10^3/uL MPV (7.0-11.0) fl Gran % (50.0-68.0) % Lymph % (Auto) (22.0-35.0) % [place] % (Auto) (1.0-6.0) % Eos % (Auto) (1.5-5.0) % Baso % (Auto) (0.0-3.0) % Gran # (1.4-6.5) Lymph # (1.2-3.4) [place] # (0.1-0.6) Eos # (0.0-0.7) Baso # (0.0-2.0) K/mm3 pCO2 38 (35-45) mm/Hg pO2 133.0 H (80-100) mm/Hg HCO3 29.0 H (21-28) mmol/L ABG pH 7.49 H (7.35-7.45) ABG Total CO2 30.2 H (22-28) mmol.L ABG O2 Saturation 99.2 H (95-98) % ABG O2 Content 12.3 L (15-23) ML/dl ABG Base Excess 5.3 H (-2.0-3.0) mmol/L ABG Hemoglobin 8.8 L (11.7-17.4) g/dL ABG Carboxyhemoglobin 1.3 (0.5-1.5) % POC ABG HHb (Measured) 0.8 (0-5) % ABG Methemoglobin 1.0 (0.0-3.0) % ABG O2 Capacity 12.4 L (16-24) mL/dl Hgb O2 Saturation 97.0 (95.0-98.0) % FiO2 35.0 % Sodium (132-148) mmol/L Potassium (3.6-5.0) mmol/L Chloride (98-107) mmol/L Carbon Dioxide (21-33) mmol/L Anion Gap (10-20) BUN (7-21) mg/dL Creatinine (0.8-1.5) mg/dL Est GFR ( Amer) Est GFR (Non-Af Amer) POC Glucose (mg/dL) 109 121 H (65-110) mg/dL Random Glucose (70-110) mg/dL Calcium (8.4-10.5) mg/dL Phosphorus (2.5-4.5) mg/dL Magnesium (1.7-2.2) mg/dL Total Bilirubin (0.2-1.3) mg/dL AST (17-59) U/L ALT (7-56) U/L Alkaline Phosphatase (38-126) U/L Total Protein (5.8-8.3) g/dL Albumin (3.0-4.8) g/dL Globulin gm/dL Albumin/Globulin Ratio (1.1-1.8) Phenytoin (10-20) ug/mL Levetiracetam mcg/mL 03/29/17 03/29/17 03/29/17 Range/Units 05:20 05:20 05:20 WBC 7.8 (4.5-11.0) 10^3/ul RBC 3.23 L (3.5-6.1) 10^6/uL Hgb 9.3 L (14.0-18.0) g/dL Hct 28.8 L (42.0-52.0) % MCV 89.2 (80.0-105.0) fl MCH 28.8 (25.0-35.0) pg MCHC 32.3 (31.0-37.0) g/dl RDW 13.6 (11.5-14.5) % Plt Count 359 (120.0-450.0) 10^3/uL MPV 9.8 (7.0-11.0) fl Gran % 66.7 (50.0-68.0) % Lymph % (Auto) 17.2 L (22.0-35.0) % [place] % (Auto) 12.6 H (1.0-6.0) % Eos % (Auto) 2.3 (1.5-5.0) % Baso % (Auto) 1.2 (0.0-3.0) % Gran # 5.20 (1.4-6.5) Lymph # 1.3 (1.2-3.4) [place] # 1.0 H (0.1-0.6) Eos # 0.2 (0.0-0.7) Baso # 0.09 (0.0-2.0) K/mm3 pCO2 (35-45) mm/Hg pO2 (80-100) mm/Hg HCO3 (21-28) mmol/L ABG pH (7.35-7.45) ABG Total CO2 (22-28) mmol.L ABG O2 Saturation (95-98) % ABG O2 Content (15-23) ML/dl ABG Base Excess (-2.0-3.0) mmol/L ABG Hemoglobin (11.7-17.4) g/dL ABG Carboxyhemoglobin (0.5-1.5) % POC ABG HHb (Measured) (0-5) % ABG Methemoglobin (0.0-3.0) % ABG O2 Capacity (16-24) mL/dl Hgb O2 Saturation (95.0-98.0) % FiO2 % Sodium 140 (132-148) mmol/L Potassium 3.8 (3.6-5.0) mmol/L Chloride 101 (98-107) mmol/L Carbon Dioxide 28 (21-33) mmol/L Anion Gap 15 (10-20) BUN 7 (7-21) mg/dL Creatinine 0.4 L (0.8-1.5) mg/dL Est GFR ( Amer) > 60 Est GFR (Non-Af Amer) > 60 POC Glucose (mg/dL) (65-110) mg/dL Random Glucose 115 H (70-110) mg/dL Calcium 9.0 (8.4-10.5) mg/dL Phosphorus 3.3 (2.5-4.5) mg/dL Magnesium 1.3 L (1.7-2.2) mg/dL Total Bilirubin 1.2 (0.2-1.3) mg/dL AST 61 H (17-59) U/L ALT 38 (7-56) U/L Alkaline Phosphatase 180 H (38-126) U/L Total Protein 7.7 (5.8-8.3) g/dL Albumin 3.3 (3.0-4.8) g/dL Globulin 4.4 gm/dL Albumin/Globulin Ratio 0.8 L (1.1-1.8) Phenytoin 5 L (10-20) ug/mL Levetiracetam mcg/mL 03/29/17 03/28/17 03/28/17 Range/Units 00:19 18:26 06:05 WBC (4.5-11.0) 10^3/ul RBC (3.5-6.1) 10^6/uL Hgb (14.0-18.0) g/dL Hct (42.0-52.0) % MCV (80.0-105.0) fl MCH (25.0-35.0) pg MCHC (31.0-37.0) g/dl RDW (11.5-14.5) % Plt Count (120.0-450.0) 10^3/uL MPV (7.0-11.0) fl Gran % (50.0-68.0) % Lymph % (Auto) (22.0-35.0) % [place] % (Auto) (1.0-6.0) % Eos % (Auto) (1.5-5.0) % Baso % (Auto) (0.0-3.0) % Gran # (1.4-6.5) Lymph # (1.2-3.4) [place] # (0.1-0.6) Eos # (0.0-0.7) Baso # (0.0-2.0) K/mm3 pCO2 (35-45) mm/Hg pO2 (80-100) mm/Hg HCO3 (21-28) mmol/L ABG pH (7.35-7.45) ABG Total CO2 (22-28) mmol.L ABG O2 Saturation (95-98) % ABG O2 Content (15-23) ML/dl ABG Base Excess (-2.0-3.0) mmol/L ABG Hemoglobin (11.7-17.4) g/dL ABG Carboxyhemoglobin (0.5-1.5) % POC ABG HHb (Measured) (0-5) % ABG Methemoglobin (0.0-3.0) % ABG O2 Capacity (16-24) mL/dl Hgb O2 Saturation (95.0-98.0) % FiO2 % Sodium (132-148) mmol/L Potassium (3.6-5.0) mmol/L Chloride (98-107) mmol/L Carbon Dioxide (21-33) mmol/L Anion Gap (10-20) BUN (7-21) mg/dL Creatinine (0.8-1.5) mg/dL Est GFR ( Amer) Est GFR (Non-Af Amer) POC Glucose (mg/dL) 114 H 85 112 H (65-110) mg/dL Random Glucose (70-110) mg/dL Calcium (8.4-10.5) mg/dL Phosphorus (2.5-4.5) mg/dL Magnesium (1.7-2.2) mg/dL Total Bilirubin (0.2-1.3) mg/dL AST (17-59) U/L ALT (7-56) U/L Alkaline Phosphatase (38-126) U/L Total Protein (5.8-8.3) g/dL Albumin (3.0-4.8) g/dL Globulin gm/dL Albumin/Globulin Ratio (1.1-1.8) Phenytoin (10-20) ug/mL Levetiracetam mcg/mL 03/27/17 03/24/17 Range/Units 23:54 13:45 WBC (4.5-11.0) 10^3/ul RBC (3.5-6.1) 10^6/uL Hgb (14.0-18.0) g/dL Hct (42.0-52.0) % MCV (80.0-105.0) fl MCH (25.0-35.0) pg MCHC (31.0-37.0) g/dl RDW (11.5-14.5) % Plt Count (120.0-450.0) 10^3/uL MPV (7.0-11.0) fl Gran % (50.0-68.0) % Lymph % (Auto) (22.0-35.0) % [place] % (Auto) (1.0-6.0) % Eos % (Auto) (1.5-5.0) % Baso % (Auto) (0.0-3.0) % Gran # (1.4-6.5) Lymph # (1.2-3.4) [place] # (0.1-0.6) Eos # (0.0-0.7) Baso # (0.0-2.0) K/mm3 pCO2 (35-45) mm/Hg pO2 (80-100) mm/Hg HCO3 (21-28) mmol/L ABG pH (7.35-7.45) ABG Total CO2 (22-28) mmol.L ABG O2 Saturation (95-98) % ABG O2 Content (15-23) ML/dl ABG Base Excess (-2.0-3.0) mmol/L ABG Hemoglobin (11.7-17.4) g/dL ABG Carboxyhemoglobin (0.5-1.5) % POC ABG HHb (Measured) (0-5) % ABG Methemoglobin (0.0-3.0) % ABG O2 Capacity (16-24) mL/dl Hgb O2 Saturation (95.0-98.0) % FiO2 % Sodium (132-148) mmol/L Potassium (3.6-5.0) mmol/L Chloride (98-107) mmol/L Carbon Dioxide (21-33) mmol/L Anion Gap (10-20) BUN (7-21) mg/dL Creatinine (0.8-1.5) mg/dL Est GFR ( Amer) Est GFR (Non-Af Amer) POC Glucose (mg/dL) 105 (65-110) mg/dL Random Glucose (70-110) mg/dL Calcium (8.4-10.5) mg/dL Phosphorus (2.5-4.5) mg/dL Magnesium (1.7-2.2) mg/dL Total Bilirubin (0.2-1.3) mg/dL AST (17-59) U/L ALT (7-56) U/L Alkaline Phosphatase (38-126) U/L Total Protein (5.8-8.3) g/dL Albumin (3.0-4.8) g/dL Globulin gm/dL Albumin/Globulin Ratio (1.1-1.8) Phenytoin (10-20) ug/mL Levetiracetam 18.8 mcg/mL Laboratory Results - last 24 hr 03/24/17 03/27/17 03/28/17 13:45 23:54 06:05 WBC RBC Hgb Hct MCV MCH MCHC RDW Plt Count MPV Gran % Lymph % (Auto) [place] % (Auto) Eos % (Auto) Baso % (Auto) Gran # Lymph # [place] # Eos # Baso # pCO2 pO2 HCO3 ABG pH ABG Total CO2 ABG O2 Saturation ABG O2 Content ABG Base Excess ABG Hemoglobin ABG Carboxyhemoglobin POC ABG HHb (Measured) ABG Methemoglobin ABG O2 Capacity Hgb O2 Saturation FiO2 Sodium Potassium Chloride Carbon Dioxide Anion Gap BUN Creatinine Est GFR ( Amer) Est GFR (Non-Af Amer) POC Glucose (mg/dL) 105 112 H Random Glucose Calcium Phosphorus Magnesium Total Bilirubin AST ALT Alkaline Phosphatase Total Protein Albumin Globulin Albumin/Globulin Ratio Phenytoin Levetiracetam 18.8 03/28/17 03/29/17 03/29/17 18:26 00:19 05:20 WBC RBC Hgb Hct MCV MCH MCHC RDW Plt Count MPV Gran % Lymph % (Auto) [place] % (Auto) Eos % (Auto) Baso % (Auto) Gran # Lymph # [place] # Eos # Baso # pCO2 pO2 HCO3 ABG pH ABG Total CO2 ABG O2 Saturation ABG O2 Content ABG Base Excess ABG Hemoglobin ABG Carboxyhemoglobin POC ABG HHb (Measured) ABG Methemoglobin ABG O2 Capacity Hgb O2 Saturation FiO2 Sodium 140 Potassium 3.8 Chloride 101 Carbon Dioxide 28 Anion Gap 15 BUN 7 Creatinine 0.4 L Est GFR ( Amer) > 60 Est GFR (Non-Af Amer) > 60 POC Glucose (mg/dL) 85 114 H Random Glucose 115 H Calcium 9.0 Phosphorus 3.3 Magnesium 1.3 L Total Bilirubin 1.2 AST 61 H ALT 38 Alkaline Phosphatase 180 H Total Protein 7.7 Albumin 3.3 Globulin 4.4 Albumin/Globulin Ratio 0.8 L Phenytoin Levetiracetam 03/29/17 03/29/17 03/29/17 05:20 05:20 05:26 WBC 7.8 RBC 3.23 L Hgb 9.3 L Hct 28.8 L MCV 89.2 MCH 28.8 MCHC 32.3 RDW 13.6 Plt Count 359 MPV 9.8 Gran % 66.7 Lymph % (Auto) 17.2 L [place] % (Auto) 12.6 H Eos % (Auto) 2.3 Baso % (Auto) 1.2 Gran # 5.20 Lymph # 1.3 [place] # 1.0 H Eos # 0.2 Baso # 0.09 pCO2 38 pO2 133.0 H HCO3 29.0 H ABG pH 7.49 H ABG Total CO2 30.2 H ABG O2 Saturation 99.2 H ABG O2 Content 12.3 L ABG Base Excess 5.3 H ABG Hemoglobin 8.8 L ABG Carboxyhemoglobin 1.3 POC ABG HHb (Measured) 0.8 ABG Methemoglobin 1.0 ABG O2 Capacity 12.4 L Hgb O2 Saturation 97.0 FiO2 35.0 Sodium Potassium Chloride Carbon Dioxide Anion Gap BUN Creatinine Est GFR ( Amer) Est GFR (Non-Af Amer) POC Glucose (mg/dL) Random Glucose Calcium Phosphorus Magnesium Total Bilirubin AST ALT Alkaline Phosphatase Total Protein Albumin Globulin Albumin/Globulin Ratio Phenytoin 5 L Levetiracetam 03/29/17 03/29/17 06:40 11:50 WBC RBC Hgb Hct MCV MCH MCHC RDW Plt Count MPV Gran % Lymph % (Auto) [place] % (Auto) Eos % (Auto) Baso % (Auto) Gran # Lymph # [place] # Eos # Baso # pCO2 pO2 HCO3 ABG pH ABG Total CO2 ABG O2 Saturation ABG O2 Content ABG Base Excess ABG Hemoglobin ABG Carboxyhemoglobin POC ABG HHb (Measured) ABG Methemoglobin ABG O2 Capacity Hgb O2 Saturation FiO2 Sodium Potassium Chloride Carbon Dioxide Anion Gap BUN Creatinine Est GFR ( Amer) Est GFR (Non-Af Amer) POC Glucose (mg/dL) 121 H 109 Random Glucose Calcium Phosphorus Magnesium Total Bilirubin AST ALT Alkaline Phosphatase Total Protein Albumin Globulin Albumin/Globulin Ratio Phenytoin Levetiracetam Critical Care Progress Note - Nutrition Nutrition: Nutrition Category Date Time Status NPO Diet [DIET] Diets 03/14/17 Breakfast Ordered
--- NOTE | 2017-03-29 10:54 | RAD ---
HISTORY: intubated, f/u COMPARISON: 03/28/2017 FINDINGS: LUNGS: No active pulmonary disease. PLEURA: No significant pleural effusion identified, no pneumothorax apparent. CARDIOVASCULAR: Normal. OSSEOUS STRUCTURES: No significant abnormalities. VISUALIZED UPPER ABDOMEN: Normal. OTHER FINDINGS: None. IMPRESSION: No active disease.
--- NOTE | 2017-03-29 11:00 | CP.PCM.PN ---
<Jerman Kilgore - Last Filed: 03/29/17 11:04> Subjective - Date & Time of Evaluation Date of Evaluation: 03/29/17 Time of Evaluation: 07:00 - Subjective Subjective: IM Progress Note for Hospitalist Service Patient seen and examined at bedside. No acute changes in condition, no reports of acute event overnight. On initial exam, remained intubated, heavily sedated, and unresponsive, but was noted to have multiple myotonic twitches/ jerks and some convulsive-like movements concerning for further seizures. Tmax overnight was 100.7F. 1 of 2 blood cultures from 03/27 came back positive for G (+) cocci in clusters. Plan is still all interventions, eventually pending placement at LTAC facility as per pt's 's wishes. Objective - Vital Signs/Intake and Output Vital Signs (last 24 hours): Temp Pulse Resp BP Pulse Ox 100.4 F H 129 H 18 164/113 H 100 03/29/17 08:00 03/29/17 09:40 03/28/17 07:45 03/29/17 09:40 03/29/17 08:50 Intake and Output: 03/29/17 03/29/17 06:59 18:59 Intake Total 3727 200 Output Total 4300 Balance -573 200 - Medications Medications: Current Medications Acetaminophen (Tylenol 325 Mg Supp) 325 mg RC Q4H PRN PRN Reason: Fever >100.4 F Last Admin: 03/27/17 09:42 Dose: 325 mg Albuterol/Ipratropium (Duoneb 3 Mg/0.5 Mg (3 Ml) Ud) 3 ml IH Q2H PRN PRN Reason: Shortness of Breath Last Admin: 03/13/17 15:45 Dose: 3 ml Propofol (Diprivan) 1,000 mg in 100 mls @ 3.674 mls/hr IV .Q24H PRN; Protocol; 5 MCG/KG/MIN PRN Reason: TITRATE PER MD ORDER Last Admin: 03/29/17 09:24 Dose: 50 mcg/kg/min, 36.741 mls/hr Phenytoin 100 mg/ Sodium (Chloride) 52 mls @ 104 mls/hr IVPB TID [facility] Last Admin: 03/29/17 09:50 Dose: 104 mls/hr Valproate Sodium 500 mg/ (Sodium Chloride) 105 mls @ 100 mls/hr IVPB Q8 [facility] Last Admin: 03/29/17 05:17 Dose: 100 mls/hr Midazolam 100 mg/100ml in NS (Midazolam 100 Mg/100ml In Ns) 100 mg in 100 mls @ 20 mls/hr IV .Q5H PRN; Protocol; 20 MG/HR PRN Reason: Sedation Last Admin: 03/29/17 06:45 Dose: 20 mg/hr, 20 mls/hr Vancomycin HCl (Vancomycin 1gm) 1 gm in 250 mls @ 167 mls/hr IVPB Q12H [facility] PRN Reason: Protocol Last Admin: 03/29/17 10:04 Dose: 167 mls/hr Levetiracetam 1,500 mg/ Sodium (Chloride) 115 mls @ 460 mls/hr IV Q12 [facility] Last Admin: 03/29/17 09:51 Dose: 460 mls/hr Fentanyl Citrate (Fentanyl Citrate/Sodium Chloride 1 Mg/100 Ml) 1,000 mcg in 100 mls @ 2 mls/hr IV .Q24H PRN; Protocol; 20 MCG/HR PRN Reason: TITRATE PER MD ORDER Last Admin: 03/29/17 10:45 Dose: 200 mcg/hr, 20 mls/hr Acetaminophen (Ofirmev) 1,000 mg in 100 mls @ 400 mls/hr IVPB Q6H PRN PRN Reason: fever Stop: 03/29/17 13:44 Last Admin: 03/28/17 21:29 Dose: 400 mls/hr Potassium Chloride 40 meq/ (Sodium Chloride) 1,020 mls @ 60 mls/hr IV .Q17H [facility] Last Admin: 03/28/17 14:58 Dose: 60 mls/hr Cefepime HCl (Maxipime 1gm) 1 gm in 100 mls @ 100 mls/hr IVPB Q12 [facility] PRN Reason: Protocol Last Admin: 03/29/17 09:29 Dose: 100 mls/hr Lorazepam (Ativan) 2 mg IVP Q4H PRN; Protocol PRN Reason: Anxiety Last Admin: 03/29/17 09:36 Dose: 2 mg Magnesium Oxide (Mag-Ox) 400 mg PO TID [facility] Last Admin: 03/29/17 09:39 Dose: 400 mg Metoprolol Tartrate (Lopressor) 5 mg IVP Q4 PRN PRN Reason: sbp>160 or HR > 130 BPM Last Admin: 03/29/17 06:12 Dose: 5 mg Metoprolol Tartrate (Lopressor) 12.5 mg PO BID [facility] Last Admin: 03/29/17 09:40 Dose: 12.5 mg Pantoprazole Sodium (Protonix Inj) 40 mg IVP Q12 [facility] Last Admin: 03/29/17 09:37 Dose: 40 mg - Labs Labs: 03/29/17 05:20 03/29/17 05:20 PT 11.9 Seconds (9.9-11.8) H 03/22/17 05:30 INR 1.10 (0.93-1.08) H 03/22/17 05:30 APTT 24.9 Seconds (23.7-30.8) 03/22/17 05:30 - Additional Findings Additional findings: Head: Positive for: Atraumatic, Normocephalic. Negative for: Ecchymosis, Abrasion, Laceration Pupils: Positive for: Pinpoint but mildly reactive (equal bilaterally) to direct light challenge. Negative for: PERRL Extroacular Muscles: Positive for: Other (unable to assess due to not following commands, not moving eyes spontaneously, no avoidance of direct light challenge for PERRL assessment; decreased intermittent fluttering of eyelids, eyes remain gazing downward, No doll eyes). Negative for: EOMI Conjunctiva: Negative for: Injected, Icteric Mouth: Positive for: Moist Mucous Membranes, Other (Bite guard in place, ETT absent). Negative for: Drooling Nose (External): Positive for: Atraumatic, Other (NGT in place, no more coffee- ground colored drainage noted). Negative for: Abrasion, Contusion, Laceration Neck: Positive for: Trachea Midline, Other (Trach in place). Negative for: JVD Respiratory/Chest: Positive for: Clear to Auscultation, Good Air Exchange, Rales (mild-moderate rales in all breath segovia, unchanged). Negative for: Accessory Muscle Use, Wheezes, Tachypneic Cardiovascular: Positive for: Normal S1, S2, Tachycardic (120's-130's on bedside monitor). Negative for: Murmurs, Irregular Rhythm Abdomen: Positive for: Feeding Tubes (Gastrostomy tube in place, covered with bandaging), Diminished but present bowel sounds (unchanged from multiple prior exams). Negative for: Distention (obese but not distended, soft on palpation, no palpable masses or pulsatile masses) Upper Extremity: Positive for: Normal Inspection. Negative for: Cyanosis, Edema , Normal ROM, NORMAL PULSES (faintly palpable radials +1), Swelling, Erythema, Deformity Lower Extremity: Positive for: Normal Inspection. Negative for: Edema, NORMAL PULSES (unable to palpate bilateral dorsalis pedis or posterior tibials), Cyanosis, Swelling, Erythema, Deformity Neurological: Positive for: Other (intubated and sedated), likely seizure activity with generalized myotonic jerks and generalized shaking. Negative for : GCS=15 (GCS 3 (E1 V1t M1)), CN II-XII Intact, Speech Normal, Motor Func Grossly Intact Skin: Positive for: Warm, Dry, Normal Color. Negative for: Rashes Psychiatric: Positive for: Other (sedated and intubated, unable to assess). Negative for: Alert, Oriented x 3, Normal Insight, Normal Concentration, Normal Affect, Normal Mood Assessment and Plan - Assessment and Plan (Free Text) Assessment: This is a 36 yo M with past medical history of substance abuse, depression, bipolar disorder, hypertension, anxiety disorder that presented with cardiac arrest in the field (downtime unknown) due to multi-drug overdose, with two further episodes of cardiac arrest on arrival, and witnessed seizure prior to initiation of increased sedation and paralytics. Remains off paralytics, but remains on high doses of sedatives due to multiple witnessed seizures, likely Status Epilepticus. Have been unable to arrange a transfer to center with 24- hour continuous EEG monitoring and possible phenobarbitol coma; denied at [facility] and [facility], unable to reach [facility]. S/p Trach/G-tube placement POD#4. Overall prognosis is poor. Plan: 1) Cardiac arrest x3 - Resolved -2/2 intentional overdose with multiple medications -UDS on admission notable for Benzos, Barbituates, and Opioids -Initial downtime unclear, likely > 20 minutes, [place] 2 [place] [facility] [place] -Troponins increased from <0.01 to 0.13 on admission -most recent EKG 03/13, notable for sinus halina to 48 and prolonged QTc at 537 ( unsurprising in setting of multi-drug abuse) -Bradycardia resolved, now persistently Tachycardic 120's-130's > 1 week, likely 2/2 status epilepticus -Cardiology consulted - Dr. Anderson; spoke with Dr. Anderson on 03/26/17, no additional recs at that time, Tachy is likely physiologic -Echo notable for EF 54%, normal size/wall thickness LV, flattened septum, mild Pulm HTN/TR, mild RV dilation -S/p 3 doses of acetadote as per Poison control 2) Severe ARDS - Resolved -White-out in bilateral lung segovia on CXR on admission -severely ventilator dependant on arrival, desating to 50% SaO2 despite 100% FiO2 on admission, required use of parlytics (Nimbex) for > 48 hours; weaned off > 2 weeks -Still ventilator dependant, but now 2/2 anoxic brain injury, lungs clear on serial CXRs and ABGs stable without acidosis or alkalosis -Tolerates Pressure support trials, but unable to wean due to neuro status -PRVC today 35%/8 Peep/400 TV/18 RR 3) Anoxic brain injury -2/2 multiple cardiac arrests -MRI brain notable for likely anoxic injury in thalamic area bilaterally -Multiple EEGs obtained, mostly notable for active seizure activity and burst- suppresion pattern; poor prognosticative markers -Likely Status Epilepticus; continues to seize through sedation with Propofol/ Versed/Fentanyl and seizure ppx with Dilantin/Keppra/Valproic Acid; next intervention would be barbiturate coma with 24-hour continuous EEG monitoring, but unable to find an accepting facility -Neurology consulted - Dr. Rene, appreciate all recs; poor prognosis given burst suppression pattern on EEG with seizure when weaned from sedation, likely status epilepticus given persisting seizures, needs 24-hour EEG monitoring for Status, which will require a transfer -POD #4 Trach/G-tube -despite grim prognosis and repeated family meetings, family continues to want full code/all measures 4) Coffee-ground emesis - Resolved -coffee-ground emesis on 03/20, 600cc drainage after NGT set to suction -likely 2/2 NGT tube, tube now removed as G-tube in place and cleared for usage -no free air under the diaphragm or obstruction on Abd CXR -Hgb stable, 9.3 today -H Pylori antigen test ordered -Vatler BID 5) Recurring fevers -likely neuro fevers vs new infection -blood cx 03/27 1 of 2 positive for G(+) cocci in clusters; may be contamination -empirically covering with Vanc and Cefepime as per ID -ID (Dr. Arguello) following, appreciate all recs -Tmax overnight 100.7F; Tylenol Suppository and Ofirmev as needed to control 6) OTONIEL and elevated LFTs - Resolved -likely injury 2/2 shock from cardiac arrest -both resolved 7) Electrolyte abnormalities -chronically requiring repletion of K and Mg -Mg today 1.3 -May be secondary to polyuria -Nephro following, appreciate all recs 8) Placement -requires placement at LTAC, pending resolution of seizures/Status epilepticus -SW following, has referrals in place -S/p Trach/G-tube Dispo: ICU, intubated/sedated, s/p EEG with burst-suppression pattern, s/p GI bleed suspected 2/2 ulceration from NGT; likely Status Epilepticus, requires 24- hour EEG monitoring and likely Barbiturate coma, denied transfer to [facility], unable to contact [facility]; prognosis is very poor, Trach/ G-tube POD#4 FEN: NPO, feeds via G-tube as per cutch cleaner Access: Peripheral IVs Consults: Neuro, Cardio, Nephro, Poison Control, Surgery (signed off) Ppx: Protonix covers for GI, SCDs for DVT Patient seen, examined, and reviewed with attending, Dr. Espitia <Raheel Espitia - Last Filed: 03/29/17 14:56> Objective - Vital Signs/Intake and Output Vital Signs (last 24 hours): Temp Pulse Resp BP Pulse Ox 100.4 F H 125 H 18 142/83 100 03/29/17 08:00 03/29/17 14:00 03/28/17 07:45 03/29/17 14:00 03/29/17 14:00 Intake and Output: 03/29/17 03/29/17 06:59 18:59 Intake Total 3727 300 Output Total 4300 Balance -573 300 - Medications Medications: Current Medications Acetaminophen (Tylenol 325 Mg Supp) 325 mg RC Q4H PRN PRN Reason: Fever >100.4 F Last Admin: 03/27/17 09:42 Dose: 325 mg Albuterol/Ipratropium (Duoneb 3 Mg/0.5 Mg (3 Ml) Ud) 3 ml IH Q2H PRN PRN Reason: Shortness of Breath Last Admin: 03/13/17 15:45 Dose: 3 ml Propofol (Diprivan) 1,000 mg in 100 mls @ 3.674 mls/hr IV .Q24H PRN; Protocol; 5 MCG/KG/MIN PRN Reason: TITRATE PER MD ORDER Last Admin: 03/29/17 09:24 Dose: 50 mcg/kg/min, 36.741 mls/hr Phenytoin 100 mg/ Sodium (Chloride) 52 mls @ 104 mls/hr IVPB TID [facility] Last Admin: 03/29/17 13:38 Dose: 104 mls/hr Valproate Sodium 500 mg/ (Sodium Chloride) 105 mls @ 100 mls/hr IVPB Q8 [facility] Last Admin: 03/29/17 13:07 Dose: 100 mls/hr Midazolam 100 mg/100ml in NS (Midazolam 100 Mg/100ml In Ns) 100 mg in 100 mls @ 20 mls/hr IV .Q5H PRN; Protocol; 20 MG/HR PRN Reason: Sedation Stop: 03/29/17 16:00 Last Admin: 03/29/17 13:00 Dose: 20 mg/hr, 20 mls/hr Vancomycin HCl (Vancomycin 1gm) 1 gm in 250 mls @ 167 mls/hr IVPB Q12H [facility] PRN Reason: Protocol Last Admin: 03/29/17 10:04 Dose: 167 mls/hr Levetiracetam 1,500 mg/ Sodium (Chloride) 115 mls @ 460 mls/hr IV Q12 [facility] Last Admin: 03/29/17 09:51 Dose: 460 mls/hr Fentanyl Citrate (Fentanyl Citrate/Sodium Chloride 1 Mg/100 Ml) 1,000 mcg in 100 mls @ 2 mls/hr IV .Q24H PRN; Protocol; 20 MCG/HR PRN Reason: TITRATE PER MD ORDER Stop: 03/29/17 16:00 Last Admin: 03/29/17 10:45 Dose: 200 mcg/hr, 20 mls/hr Potassium Chloride 40 meq/ (Sodium Chloride) 1,020 mls @ 60 mls/hr IV .Q17H [facility] Last Admin: 03/29/17 13:03 Dose: 60 mls/hr Cefepime HCl (Maxipime 1gm) 1 gm in 100 mls @ 100 mls/hr IVPB Q12 [facility] PRN Reason: Protocol Last Admin: 03/29/17 09:29 Dose: 100 mls/hr Midazolam HCl 250 mg/ Sodium (Chloride) 250 mls @ 20 mls/hr IV .Q12.5H PRN; Protocol; 20 MG/HR PRN Reason: TITRATE PER PROTOCOL Fentanyl 5,000 mcg/ Sodium (Chloride) 250 mls @ 10 mls/hr IV .Q24H PRN; Protocol; 200 MCG/HR PRN Reason: TITRATE PER PROTOCOL Lorazepam (Ativan) 2 mg IVP Q4H PRN; Protocol PRN Reason: Anxiety Last Admin: 03/29/17 09:36 Dose: 2 mg Magnesium Oxide (Mag-Ox) 400 mg PO TID [facility] Last Admin: 03/29/17 09:39 Dose: 400 mg Metoprolol Tartrate (Lopressor) 5 mg IVP Q4 PRN PRN Reason: sbp>160 or HR > 130 BPM Last Admin: 03/29/17 13:05 Dose: 5 mg Metoprolol Tartrate (Lopressor) 12.5 mg PO BID [facility] Last Admin: 03/29/17 09:40 Dose: 12.5 mg Pantoprazole Sodium (Protonix Inj) 40 mg IVP Q12 [facility] Last Admin: 03/29/17 09:37 Dose: 40 mg - Labs Labs: 03/29/17 05:20 03/29/17 05:20 PT 11.9 Seconds (9.9-11.8) H 03/22/17 05:30 INR 1.10 (0.93-1.08) H 03/22/17 05:30 APTT 24.9 Seconds (23.7-30.8) 03/22/17 05:30 Attending/Attestation - Attestation I have personally seen and examined this patient.: Yes I have fully participated in the care of the patient.: Yes I have reviewed all pertinent clinical information, including history, physical exam and plan: Yes Notes (Text): 03/29/17 14:51 36 year old male presented with cardiac arrest secondary to suspected overdose. Hospital course has been complicated with prolonged intubation s/p trach and peg, ARDS, seizures/status epilepticus and now fevers. MRI brain was consistent with anoxic injury. He is currently on propofol, fentanyl and versed. He is on keppra, dilantin and valproic acid. Multiple attempts were made for possible transfer for 24 hr continuous EEG monitoring; however unsuccessful. Continue with antibiotics as per ID. CT chest/abd/pelvis was ordered as well. Overall prognosis is poor. Raheel Espitia MD Hospitalist.
[2017-03-29] MEDS ORDERED: Phenytoin 100 mg/2 ml Inj ONE (12:54)
[2017-03-29] MEDS: Potassium Chloride 40 MEQ in Sodium Chloride 0.45% 1,000 ML IV SCH ×2 (13:03→21:57)
[2017-03-29] MEDS ORDERED: SODIUM CHLORIDE 0.9% IV PRN ×2 (16:00)
[2017-03-29] MEDS ORDERED: MIDAZOLAM IV PRN (16:00)
[2017-03-29] MEDS ORDERED: FENTANYL IV PRN (16:00)
[2017-03-29] MEDS: SODIUM CHLORIDE 0.9% IV PRN (17:31)
[2017-03-29] MEDS: MIDAZOLAM IV PRN (17:31)
--- NOTE | 2017-03-29 19:01 | CP.PCM.PN ---
Subjective - Date & Time of Evaluation Date of Evaluation: 03/29/17 Time of Evaluation: 17:00 - Subjective Subjective: Infectious Disease Follow Up: March 29, 2017 36 yo male who [place] [facility] for up to 9 hours. The patient was found next to multiple empty pill bottles. The patient has been in the hospital for over 2 weeks at this point. He is in respiratory failure and is now trached. The patient is febrile with shakes. Difficult obtaining history as the patient appears to have lived alone. The patient's I believe is estranged. No clinical changes One culture showing gram positive cocci in cluster but FISH indicating coagulase negative staph. Objective - Vital Signs/Intake and Output Vital Signs (last 24 hours): Temp Pulse Resp BP Pulse Ox 100.9 F H 146 H 18 158/100 H 100 03/29/17 12:00 03/29/17 18:48 03/28/17 07:45 03/29/17 18:48 03/29/17 16:00 Intake and Output: 03/29/17 03/29/17 06:59 18:59 Intake Total 3727 400 Output Total 4300 Balance -573 400 - Medications Medications: Current Medications Acetaminophen (Tylenol 325 Mg Supp) 325 mg RC Q4H PRN PRN Reason: Fever >100.4 F Last Admin: 03/27/17 09:42 Dose: 325 mg Albuterol/Ipratropium (Duoneb 3 Mg/0.5 Mg (3 Ml) Ud) 3 ml IH Q2H PRN PRN Reason: Shortness of Breath Last Admin: 03/13/17 15:45 Dose: 3 ml Propofol (Diprivan) 1,000 mg in 100 mls @ 3.674 mls/hr IV .Q24H PRN; Protocol; 5 MCG/KG/MIN PRN Reason: TITRATE PER MD ORDER Last Admin: 03/29/17 17:48 Dose: 50 mcg/kg/min, 36.741 mls/hr Phenytoin 100 mg/ Sodium (Chloride) 52 mls @ 104 mls/hr IVPB TID [facility] Last Admin: 03/29/17 13:38 Dose: 104 mls/hr Valproate Sodium 500 mg/ (Sodium Chloride) 105 mls @ 100 mls/hr IVPB Q8 [facility] Last Admin: 03/29/17 13:07 Dose: 100 mls/hr Vancomycin HCl (Vancomycin 1gm) 1 gm in 250 mls @ 167 mls/hr IVPB Q12H [facility] PRN Reason: Protocol Last Admin: 03/29/17 10:04 Dose: 167 mls/hr Levetiracetam 1,500 mg/ Sodium (Chloride) 115 mls @ 460 mls/hr IV Q12 [facility] Last Admin: 03/29/17 09:51 Dose: 460 mls/hr Potassium Chloride 40 meq/ (Sodium Chloride) 1,020 mls @ 60 mls/hr IV .Q17H [facility] Last Admin: 03/29/17 13:03 Dose: 60 mls/hr Cefepime HCl (Maxipime 1gm) 1 gm in 100 mls @ 100 mls/hr IVPB Q12 [facility] PRN Reason: Protocol Last Admin: 03/29/17 09:29 Dose: 100 mls/hr Midazolam HCl 250 mg/ Sodium (Chloride) 250 mls @ 20 mls/hr IV .Q12.5H PRN; Protocol; 20 MG/HR PRN Reason: TITRATE PER PROTOCOL Last Admin: 03/29/17 17:31 Dose: 20 mg/hr, 20 mls/hr Fentanyl 5,000 mcg/ Sodium (Chloride) 250 mls @ 10 mls/hr IV .Q24H PRN; Protocol; 200 MCG/HR PRN Reason: TITRATE PER PROTOCOL Last Admin: 03/29/17 17:24 Dose: 200 mcg/hr, 10 mls/hr Lorazepam (Ativan) 2 mg IVP Q4H PRN; Protocol PRN Reason: Anxiety Last Admin: 03/29/17 09:36 Dose: 2 mg Magnesium Oxide (Mag-Ox) 400 mg PO TID [facility] Last Admin: 03/29/17 17:20 Dose: 400 mg Metoprolol Tartrate (Lopressor) 5 mg IVP Q4 PRN PRN Reason: sbp>160 or HR > 130 BPM Last Admin: 03/29/17 18:48 Dose: 5 mg Metoprolol Tartrate (Lopressor) 12.5 mg PO BID [facility] Last Admin: 03/29/17 17:29 Dose: 12.5 mg Pantoprazole Sodium (Protonix Inj) 40 mg IVP Q12 [facility] Last Admin: 03/29/17 09:37 Dose: 40 mg - Labs Labs: 03/29/17 05:20 03/29/17 05:20 PT 11.9 Seconds (9.9-11.8) H 03/22/17 05:30 INR 1.10 (0.93-1.08) H 03/22/17 05:30 APTT 24.9 Seconds (23.7-30.8) 03/22/17 05:30 - Constitutional Appears: Chronically Ill - Head Exam Additional comments: Obtunded, Intubated, and Ventilated. Trach in place. - ENT Exam ENT Exam: Mucous Membranes Moist, Normal External Ear Exam, TM's Normal Bilaterally Additional comments: trach in place. - Neck Exam Additional comments: no JVD - Respiratory Exam Respiratory Exam: Clear to Ausculation Bilateral, NORMAL BREATHING PATTERN. absent: Rales, Rhonchi, Wheezes - Cardiovascular Exam Cardiovascular Exam: REGULAR RHYTHM, RRR, +S1, +S2 - GI/Abdominal Exam GI & Abdominal Exam: Soft, Normal Bowel Sounds. absent: Distended, Tenderness - Extremities Exam Extremities Exam: Full ROM, Normal Inspection - Neurological Exam Neurological Exam: absent: Alert, Awake, CN II-XII Intact, Oriented x3 Additional comments: intubated and ventilated. poorly responsive. - Skin Additional comments: diffuse edema. Assessment and Plan - Assessment and Plan (Free Text) Assessment: 36 yo male who presented with altered mental status and found next to multiple empty pill bottles. The patient was down for unknown period of time. The patient has normal procalcitonin levels. No leukocytosis currently... initial leukocytosis. Development of fevers. Toxicology screen on admission showed Opiates, Barbiturates, and Benzodiazepine. The patient is ventilated and poorly responsive (on sedation however). The patient is on Vancomycin currently. Consider CT scan of chest and abdomen. Noted negative chest X-ray. Consider stopping any medications that may be unnecessary. Continue Cefepime for now. Fevers up to 100.9 F so far today. Cannot rule out central fever. It appears the one positive culture is coagulase negative staph which is likely a contaminant. Supportive care Thank you for allowing me to participate in the care of the patient, we will follow with you.
[2017-03-29 23:34] VITALS: O2SAT 100
[2017-03-30] MEDS: Propofol 10 mg/ml 1,000 MG/100 ML VIAL IV PRN ×3 (00:47→06:26)
[2017-03-30] MEDS: Valproate 500 MG in Sodium Chloride 0.9% 100 ML IVPB SCH ×2 (06:18→13:53)
[2017-03-30] MEDS: Metoprolol 1 mg/ml Inj IVP PRN ×2 (06:20→10:19)
[2017-03-30] MEDS: SODIUM CHLORIDE 0.9% IV PRN (06:27)
[2017-03-30] MEDS: MIDAZOLAM IV PRN (06:27)
[2017-03-30] MEDS: Albuterol-Ipratrop 3 mg / 0.5 (3 ml) UD IH PRN (06:42)
[2017-03-30 06:48] VITALS: RESP 24
[2017-03-30 07:19] LABS: BASO # 0.16 K/mm3 (0.0-2.0); BASO % 1.8 % (0.0-3.0); EOS # 0.3 (0.0-0.7); EOS % 2.9 % (1.5-5.0); GRAN # 5.55 (1.4-6.5); HEMATOCRIT 29.1 % (42.0-52.0); LYMPH # 1.5 (1.2-3.4); LYMPH % 16.7 % (22.0-35.0); MEAN CELL VOLUME 88.4 fl (80.0-105.0); MEAN CORPUSCULAR HEMOGLOBIN 29.2 pg (25.0-35.0); MEAN PLATELET VOLUME 9.8 fl (7.0-11.0); MONO # 1.5 (0.1-0.6); MONO % 16.6 % (1.0-6.0); RED CELL DISTRIBUTION WIDTH 13.5 % (11.5-14.5)
[2017-03-30 07:22] LABS: ARTERIAL BLOOD GAS HCO3 30.2 mmol/L (21-28); ARTERIAL BLOOD GAS O2 CAPACITY 12.7 mL/dl (16-24); ARTERIAL BLOOD GAS O2 CONTENT 12.6 ML/dl (15-23); ARTERIAL BLOOD GAS PH 7.52 (7.35-7.45); ARTERIAL BLOOD HGB O2 SAT 96.8 % (95.0-98.0); CARBOXYHEMOGLOBIN 1.7 % (0.5-1.5); HHB 0.6 % (0-5)
[2017-03-30 07:39] LABS: ALB/GLOB RATIO 0.7 (1.1-1.8); ALKALINE PHOSPHATASE 189 U/L (38-126); ALT/SGPT 57 U/L (7-56); AST/SGOT 74 U/L (17-59); BILIRUBIN,TOTAL 1.3 mg/dL (0.2-1.3); BLOOD UREA NITROGEN 7 mg/dL (7-21); CALCIUM 8.8 mg/dL (8.4-10.5); CARBON DIOXIDE 31 mmol/L (21-33); CHLORIDE 99 mmol/L (95-110); GFR AFRICAN-AMERICAN > 60; GLUCOSE,RANDOM 127 mg/dL (70-110); POTASSIUM 3.7 mmol/L (3.6-5.0); SODIUM 139 mmol/L (132-148)
--- NOTE | 2017-03-30 09:04 | CP.PCM.PN ---
Subjective - Date & Time of Evaluation Date of Evaluation: 03/29/17 Time of Evaluation: 18:30 - Subjective Subjective: Patient s/p prolonged cardiac arrest with ensuing anoxic injury; now s/p trach and G-tube; Objective - Vital Signs/Intake and Output Vital Signs (last 24 hours): Temp Pulse Resp BP Pulse Ox 100.2 F H 139 H 24 164/98 H 100 03/30/17 04:00 03/30/17 06:20 03/30/17 06:48 03/30/17 06:20 03/30/17 06:48 Intake and Output: 03/30/17 03/30/17 06:59 18:59 Intake Total 2774 Output Total 2500 Balance 274 - Medications Medications: Current Medications Acetaminophen (Tylenol 325 Mg Supp) 325 mg RC Q4H PRN PRN Reason: Fever >100.4 F Last Admin: 03/30/17 07:52 Dose: 325 mg Albuterol/Ipratropium (Duoneb 3 Mg/0.5 Mg (3 Ml) Ud) 3 ml IH Q2H PRN PRN Reason: Shortness of Breath Last Admin: 03/30/17 06:42 Dose: 3 ml Propofol (Diprivan) 1,000 mg in 100 mls @ 3.674 mls/hr IV .Q24H PRN; Protocol; 5 MCG/KG/MIN PRN Reason: TITRATE PER MD ORDER Last Admin: 03/30/17 06:26 Dose: 50 mcg/kg/min, 36.741 mls/hr Phenytoin 100 mg/ Sodium (Chloride) 52 mls @ 104 mls/hr IVPB TID [facility] Last Admin: 03/29/17 19:42 Dose: 104 mls/hr Valproate Sodium 500 mg/ (Sodium Chloride) 105 mls @ 100 mls/hr IVPB Q8 [facility] Last Admin: 03/30/17 06:18 Dose: 100 mls/hr Vancomycin HCl (Vancomycin 1gm) 1 gm in 250 mls @ 167 mls/hr IVPB Q12H [facility] PRN Reason: Protocol Last Admin: 03/29/17 21:56 Dose: 167 mls/hr Levetiracetam 1,500 mg/ Sodium (Chloride) 115 mls @ 460 mls/hr IV Q12 [facility] Last Admin: 03/29/17 21:57 Dose: 460 mls/hr Potassium Chloride 40 meq/ (Sodium Chloride) 1,020 mls @ 60 mls/hr IV .Q17H [facility] Last Admin: 03/29/17 21:57 Dose: 60 mls/hr Cefepime HCl (Maxipime 1gm) 1 gm in 100 mls @ 100 mls/hr IVPB Q12 [facility] PRN Reason: Protocol Last Admin: 03/29/17 21:57 Dose: 100 mls/hr Midazolam HCl 250 mg/ Sodium (Chloride) 250 mls @ 20 mls/hr IV .Q12.5H PRN; Protocol; 20 MG/HR PRN Reason: TITRATE PER PROTOCOL Last Admin: 03/30/17 06:27 Dose: 20 mg/hr, 20 mls/hr Fentanyl 5,000 mcg/ Sodium (Chloride) 250 mls @ 10 mls/hr IV .Q24H PRN; Protocol; 200 MCG/HR PRN Reason: TITRATE PER PROTOCOL Last Admin: 03/29/17 17:24 Dose: 200 mcg/hr, 10 mls/hr Lorazepam (Ativan) 2 mg IVP Q4H PRN; Protocol PRN Reason: Anxiety Last Admin: 03/29/17 23:52 Dose: 2 mg Magnesium Oxide (Mag-Ox) 400 mg PO TID [facility] Last Admin: 03/29/17 17:20 Dose: 400 mg Metoprolol Tartrate (Lopressor) 5 mg IVP Q4 PRN PRN Reason: sbp>160 or HR > 130 BPM Last Admin: 03/30/17 06:20 Dose: 5 mg Metoprolol Tartrate (Lopressor) 12.5 mg PO BID [facility] Last Admin: 03/29/17 17:29 Dose: 12.5 mg Pantoprazole Sodium (Protonix Inj) 40 mg IVP Q12 [facility] Last Admin: 03/29/17 21:59 Dose: 40 mg - Labs Labs: 03/30/17 07:15 03/30/17 07:15 PT 11.9 Seconds (9.9-11.8) H 03/22/17 05:30 INR 1.10 (0.93-1.08) H 03/22/17 05:30 APTT 24.9 Seconds (23.7-30.8) 03/22/17 05:30 - Constitutional Appears: Non-toxic, No Acute Distress - Head Exam Head Exam: NORMAL INSPECTION - Eye Exam Eye Exam: absent: Scleral icterus - ENT Exam ENT Exam: Mucous Membranes Moist - Respiratory Exam Respiratory Exam: Clear to Ausculation Bilateral. absent: Respiratory Distress - Cardiovascular Exam Cardiovascular Exam: Tachycardia, REGULAR RHYTHM, +S1, +S2 - GI/Abdominal Exam GI & Abdominal Exam: Soft. absent: Distended - Extremities Exam Additional comments: pedal edema present; - Neurological Exam Neurological Exam: absent: Alert, Awake - Skin Skin Exam: Warm. absent: Cyanosis Assessment and Plan (1) Acute renal failure Status: Resolved (2) ARDS (adult respiratory distress syndrome) Status: Resolved (3) Polyuria Assessment & Plan: Solute diuresis in the setting of getting large amounts of meds via IVF/gtt; so sign of volume depletion; monitor; Status: Acute (4) Electrolyte imbalance Assessment & Plan: Hypokalemia being corrected with KCl in IVF; persistent hypomagnesemia, need to ensure IV mag is given slowly to avoid renal wasting; Status: Acute
[2017-03-30] MEDS: levETIRAcetam 1,500 MG in Sodium Chloride 0.9% 100 ML IV SCH (10:17)
[2017-03-30] MEDS: Magnesium Oxide 400 mg Tab UD PO SCH ×2 (10:22→13:54)
[2017-03-30] MEDS: Cefepime 1gm in NS 100ml 1 GM/100 ML BAG IVPB SCH (10:23)
[2017-03-30] MEDS: Potassium Chloride 40 MEQ in Sodium Chloride 0.45% 1,000 ML IV SCH (10:25)
[2017-03-30] MEDS: Vancomycin 1gm in NS 250ml 1 GM/250 ML BAG IVPB SCH (10:33)
--- NOTE | 2017-03-30 11:42 | CP.CCUPN ---
<Fernando Wells - Last Filed: 03/30/17 11:35> CCU Subjective - Physician Review Subjective (Free Text): Subjective: Patient seen and examined at bedside. Resting comfortably in bed. Fever, tachycardia, and elevated BP noted overnight. Patient is intubated on ventilation and heavily sedated. ROS cannot be attained at this time due to altered mental status. Physical Examination: Head: Positive for: Atraumatic, Normocephalic. Negative for: Ecchymosis, Abrasion, Laceration Eyes: Positive for: Pinpoint but mildly reactive (equal bilaterally) to direct light challenge. Mouth: Positive for: Moist Mucous Membranes, Other (Bite guard in place, ETT absent). Negative for: Drooling Neck: Positive for: Trachea Midline, Other (Trach in place). Negative for: JVD Respiratory/Chest: Positive for: Clear to Auscultation, Good Air Exchange, Rales (mild-moderate rales in all breath segovia, unchanged). Negative for: Accessory Muscle Use, Wheezes, Tachypneic Cardiovascular: Positive for: Normal S1, S2, Tachycardic (120's-130's on bedside monitor). Negative for: Murmurs, Irregular Rhythm Abdomen: Positive for: Feeding Tubes (Gastrostomy tube in place, covered with bandaging), Diminished but present bowel sounds (unchanged from multiple prior exams). Extremities- no clubbing no cynosis Neurological: Positive for: Other (intubated and sedated), likely seizure activity with generalized myotonic jerks and generalized shaking. Skin: Positive for: Warm, Dry, Normal Color. Negative for: Rashes Assessment and Plan: Patient is a 36 yo M with past medical history of substance abuse, depression, bipolar disorder, hypertension, anxiety disorder that who was admitted for evaluation and treatment of AMS. He experienced cardiac arrest in the field ( downtime unknown) due to multi-drug overdose, with two further episodes of cardiac arrest on arrival, and witnessed seizure prior to initiation of increased sedation and paralytics. Remains off paralytics, but remains on high doses of sedatives due to multiple witnessed seizures, likely Status Epilepticus. Have been unable to arrange a transfer to center with 24-hour continuous EEG monitoring and possible phenobarbitol coma; denied at [facility] and [facility], unable to reach [facility]. Will be transferred to LTAC later today. S/p Trach/G-tube placement POD#5. Overall prognosis is poor. Anoxic brain injury - patient will be switched from versed to ativan for 24 hours -2/2 multiple cardiac arrests -MRI brain notable for likely anoxic injury in thalamic area bilaterally -Multiple EEGs obtained, mostly notable for active seizure activity and burst- suppresion pattern; poor prognosticative markers -Likely Status Epilepticus; continues to seize through sedation with Propofol/ Versed/Fentanyl and seizure ppx with Dilantin/Keppra/Valproic Acid; next intervention would be barbiturate coma with 24-hour continuous EEG monitoring, but unable to find an accepting facility -Neurology consulted - Dr. Rene, appreciate all recs; poor prognosis given burst suppression pattern on EEG with seizure when weaned from sedation, likely status epilepticus given persisting seizures, needs 24-hour EEG monitoring for Status, which will require a transfer -POD #5 Trach/G-tube -despite grim prognosis and repeated family meetings, family continues to want full code/all measures Cardiac arrest x3 - Resolved -2/2 intentional overdose with multiple medications -UDS on admission notable for Benzos, Barbituates, and Opioids -Initial downtime unclear, likely > 20 minutes, arrested 2 more times at [facility] after arrival -Troponins increased from <0.01 to 0.13 on admission -most recent EKG 03/13, notable for sinus halina to 48 and prolonged QTc at 537 ( unsurprising in setting of multi-drug abuse) -Bradycardia resolved, now persistently Tachycardic 120's-130's > 1 week, likely 2/2 status epilepticus -Cardiology consulted - Dr. Anderson; spoke with Dr. Anderson on 03/26/17, no additional recs at that time, Tachy is likely physiologic -Echo notable for EF 54%, normal size/wall thickness LV, flattened septum, mild Pulm HTN/TR, mild RV dilation -S/p 3 doses of acetadote as per Poison control Severe ARDS - Resolved -White-out in bilateral lung segovia on CXR on admission -severely ventilator dependant on arrival, desating to 50% SaO2 despite 100% FiO2 on admission, required use of parlytics (Nimbex) for > 48 hours; weaned off > 2 weeks -Still ventilator dependant, but now 2/2 anoxic brain injury, lungs clear on serial CXRs and ABGs stable without acidosis or alkalosis -Tolerates Pressure support trials, but unable to wean due to neuro status -PRVC today 35%/8 Peep/400 TV/18 RR Coffee-ground emesis - Resolved -coffee-ground emesis on 03/20, 600cc drainage after NGT set to suction -likely 2/2 NGT tube, tube now removed as G-tube in place and cleared for usage -no free air under the diaphragm or obstruction on Abd CXR -Hgb stable, 9.3 today -H Pylori antigen test ordered -Protonix BID Recurring fevers -likely neuro fevers -blood cx 03/27 1 of 2 positive for G(+) cocci in clusters; may be contamination -empirically covering Cefepime as per ID -ID (Dr. Arguello) following, appreciate all recs -Tmax overnight 100.7F; Tylenol Suppository and Ofirmev as needed to control OTONIEL and elevated LFTs - Resolved -likely injury 2/2 shock from cardiac arrest -both resolved Electrolyte abnormalities - potassium within normal range today -chronically requiring repletion of K and Mg -May be secondary to polyuria -Nephro following, appreciate all recs Placement -requires placement at LTAC, pending resolution of seizures/Status epilepticus -SW following, has referrals in place -S/p Trach/G-tube Dispo: ICU, intubated/sedated, s/p EEG with burst-suppression pattern, s/p GI bleed suspected 2/2 ulceration from NGT; likely Status Epilepticus, requires 24- hour EEG monitoring and likely Barbiturate coma, patient is being transferred to LTAC today, Trach/G-tube POD#5 FEN: NPO, feeds via G-tube as per skid [address] man Access: Peripheral IVs Consults: Neuro, Cardio, Nephro, Poison Control, Surgery (signed off) Ppx: Protonix covers for GI, SCDs for DVT Patient seen, case discussed with, and plan approved by attending physician, Dr. Call. 03/30/17 11:42 03/30/17 11:46 CCU Objective - Vital Signs / Intake & Output Vital Signs (Last 4 hours): Vital Signs Pulse BP 03/30/17 10:21 132 H 158/93 H 03/30/17 10:19 132 H 158/93 H Intake and Output (Last 8hrs): Intake & Output 03/29/17 03/30/17 03/30/17 22:59 06:59 14:59 Intake Total 2884 2574 Output Total 3150 2500 Balance -266 74 Intake: IV 2524 2174 Left Forearm 2324 360 Left Hand 1264 Tube Feeding 360 400 Output: Urine 3150 2500 Urethral (Armenta) 3150 2500 Other: # Bowel Movements 0 - Physical Exam Head: Positive for: Atraumatic, Normocephalic. Negative for: Ecchymosis, Abrasion, Laceration Pupils: Positive for: Non-Reactive, Pinpoint. Negative for: PERRL Extroacular Muscles: Positive for: Other (unable to assess due to not following commands, not moving eyes spontaneously, no avoidance of direct light challenge for PERRL assessment; decreased intermittent fluttering of eyelids, eyes remain gazing downward, No doll eyes). Negative for: EOMI Conjunctiva: Negative for: Injected, Icteric Mouth: Positive for: Moist Mucous Membranes, Other (Bite guard in place, ETT absent). Negative for: Drooling Nose (External): Positive for: Atraumatic, Other (NGT in place, no more coffee- ground colored drainage noted). Negative for: Abrasion, Contusion, Laceration Neck: Positive for: Trachea Midline, Other (Trach in place). Negative for: JVD , Lymphadenopathy Respiratory/Chest: Positive for: Clear to Auscultation, Good Air Exchange, Rales (mild-moderate rales in all breath [place], unchanged). Negative for: Accessory Muscle Use, Wheezes, Tachypneic Cardiovascular: Positive for: Normal S1, S2, Tachycardic (120's-130's on bedside monitor). Negative for: Murmurs, Irregular Rhythm Abdomen: Positive for: Feeding Tubes (Gastrostomy tube in place, covered with bandaging). Negative for: Distention (obese but not distended, soft on palpation, no palpable masses or pulsatile masses), Normal Bowel Sounds ( diminished but present bowel sounds, unchanged from multiple prior exams), Mass/ Organomegaly Upper Extremity: Positive for: Normal Inspection. Negative for: Cyanosis, Edema , Normal ROM, NORMAL PULSES (faintly palpable radials +1), Swelling, Erythema, Deformity Lower Extremity: Positive for: Normal Inspection. Negative for: Edema, NORMAL PULSES (unable to palpate bilateral dorsalis pedis or posterior tibials), Cyanosis, Swelling, Erythema, Deformity Neurological: Positive for: Other (intubated and sedated, now off paralytics for ~12 hrs). Negative for: GCS=15 (GCS 3 (E1 V1t M1)), CN II-XII Intact, Speech Normal, Motor Func Grossly Intact Skin: Positive for: Warm, Dry, Normal Color. Negative for: Rashes Psychiatric: Positive for: Other (sedated and intubated, unable to assess). Negative for: Alert, Oriented x 3, Normal Insight, Normal Concentration, Normal Affect, Normal Mood - Medications Active Medications: Active Medications Generic Name Dose Route Start Last Admin Trade Name Freq PRN Reason Stop Dose Admin Acetaminophen 325 mg 03/22/17 20:47 03/30/17 07:52 Tylenol 325 Mg Supp RC 325 mg Q4H PRN Administration Fever >100.4 F Albuterol/Ipratropium 3 ml 03/13/17 15:07 03/30/17 06:42 Duoneb 3 Mg/0.5 Mg (3 Ml) Ud IH 3 ml Q2H PRN Administration Shortness of Breath Propofol 1,000 mg in 100 mls @ 3.674 mls/hr 03/12/17 07:41 03/30/17 06:26 Diprivan IV 50 mcg/kg/min .Q24H PRN 36.741 mls/hr TITRATE PER MD ORDER Administration Protocol 5 MCG/KG/MIN Phenytoin 100 mg/ Sodium 52 mls @ 104 mls/hr 03/18/17 10:00 03/30/17 10:10 Chloride IVPB 104 mls/hr TID MARICHUY Administration Valproate Sodium 500 mg/ 105 mls @ 100 mls/hr 03/21/17 14:00 03/30/17 06:18 Sodium Chloride IVPB 100 mls/hr Q8 MARICHUY Administration Levetiracetam 1,500 mg/ Sodium 115 mls @ 460 mls/hr 03/24/17 15:20 03/30/17 10:17 Chloride IV 460 mls/hr Q12 MARICHUY Administration Potassium Chloride 40 meq/ 1,020 mls @ 60 mls/hr 03/27/17 14:54 03/30/17 10: 25 Sodium Chloride IV 60 mls/hr .Q17H MARICHUY Administration Cefepime HCl 1 gm in 100 mls @ 100 mls/hr 03/27/17 22:00 03/30/17 10:23 Maxipime 1gm IVPB 100 mls/hr Q12 MARICHUY Administration Protocol Midazolam HCl 250 mg/ Sodium 250 mls @ 20 mls/hr 03/29/17 16:00 03/30/17 06: 27 Chloride IV 20 mg/hr .Q12.5H PRN 20 mls/hr TITRATE PER PROTOCOL Administration Protocol 20 MG/HR Fentanyl 5,000 mcg/ Sodium 250 mls @ 10 mls/hr 03/29/17 16:00 03/29/17 17:24 Chloride IV 200 mcg/hr .Q24H PRN 10 mls/hr TITRATE PER PROTOCOL Administration Protocol 200 MCG/HR Lorazepam 2 mg 03/28/17 10:02 03/29/17 23:52 Ativan IVP 2 mg Q4H PRN Administration Anxiety Protocol Magnesium Oxide 400 mg 03/27/17 10:00 03/30/17 10:22 Mag-Ox PO 400 mg TID MARICHUY Administration Metoprolol Tartrate 5 mg 03/21/17 16:38 03/30/17 10:19 Lopressor IVP 5 mg Q4 PRN Administration sbp>160 or HR > 130 BPM Metoprolol Tartrate 25 mg 03/30/17 11:06 Lopressor PO BID MARICHUY Pantoprazole Sodium 40 mg 03/20/17 22:00 03/30/17 10:28 Protonix Inj IVP 40 mg Q12 MARICHUY Administration - Patient Studies Lab Studies: Microbiology Studies 03/27/17 09:30 S.aureus & Coag-Neg Staph PNA FISH - Final Blood Blood Culture - Final Coagulase Neg Staphylococcus Gram Stain - Final Lab Studies 03/30/17 03/30/17 03/30/17 Range/Units 07:15 07:15 05:00 WBC 9.0 (4.5-11.0) 10^3/ul RBC 3.29 L (3.5-6.1) 10^6/uL Hgb 9.6 L (14.0-18.0) g/dL Hct 29.1 L (42.0-52.0) % MCV 88.4 (80.0-105.0) fl MCH 29.2 (25.0-35.0) pg MCHC 33.0 (31.0-37.0) g/dl RDW 13.5 (11.5-14.5) % Plt Count 379 (120.0-450.0) 10^3/uL MPV 9.8 (7.0-11.0) fl Gran % 62.0 (50.0-68.0) % Lymph % (Auto) 16.7 L (22.0-35.0) % [place] % (Auto) 16.6 H (1.0-6.0) % Eos % (Auto) 2.9 (1.5-5.0) % Baso % (Auto) 1.8 (0.0-3.0) % Gran # 5.55 (1.4-6.5) Lymph # 1.5 (1.2-3.4) [place] # 1.5 H (0.1-0.6) Eos # 0.3 (0.0-0.7) Baso # 0.16 (0.0-2.0) K/mm3 pCO2 37 (35-45) mm/Hg pO2 158.0 H (80-100) mm/Hg HCO3 30.2 H (21-28) mmol/L ABG pH 7.52 H (7.35-7.45) ABG Total CO2 31.3 H (22-28) mmol.L ABG O2 Saturation 99.4 H (95-98) % ABG O2 Content 12.6 L (15-23) ML/dl ABG Base Excess 6.9 H (-2.0-3.0) mmol/L ABG Hemoglobin 9.0 L (11.7-17.4) g/dL ABG Carboxyhemoglobin 1.7 H (0.5-1.5) % POC ABG HHb (Measured) 0.6 (0-5) % ABG Methemoglobin 1.0 (0.0-3.0) % ABG O2 Capacity 12.7 L (16-24) mL/dl Hgb O2 Saturation 96.8 (95.0-98.0) % FiO2 35.0 % Sodium 139 (132-148) mmol/L Potassium 3.7 (3.6-5.0) mmol/L Chloride 99 (95-110) mmol/L Carbon Dioxide 31 (21-33) mmol/L Anion Gap 13 (10-20) BUN 7 (7-21) mg/dL Creatinine 0.4 L (0.8-1.5) mg/dL Est GFR ( Amer) > 60 Est GFR (Non-Af Amer) > 60 POC Glucose (mg/dL) (65-110) mg/dL Random Glucose 127 H (70-110) mg/dL Calcium 8.8 (8.4-10.5) mg/dL Total Bilirubin 1.3 (0.2-1.3) mg/dL AST 74 H D (17-59) U/L ALT 57 H (7-56) U/L Alkaline Phosphatase 189 H (38-126) U/L Total Protein 8.0 (5.8-8.3) g/dL Albumin 3.3 (3.0-4.8) g/dL Globulin 4.7 gm/dL Albumin/Globulin Ratio 0.7 L (1.1-1.8) 03/29/17 03/29/17 03/29/17 Range/Units 21:55 11:50 06:40 WBC (4.5-11.0) 10^3/ul RBC (3.5-6.1) 10^6/uL Hgb (14.0-18.0) g/dL Hct (42.0-52.0) % MCV (80.0-105.0) fl MCH (25.0-35.0) pg MCHC (31.0-37.0) g/dl RDW (11.5-14.5) % Plt Count (120.0-450.0) 10^3/uL MPV (7.0-11.0) fl Gran % (50.0-68.0) % Lymph % (Auto) (22.0-35.0) % [place] % (Auto) (1.0-6.0) % Eos % (Auto) (1.5-5.0) % Baso % (Auto) (0.0-3.0) % Gran # (1.4-6.5) Lymph # (1.2-3.4) [place] # (0.1-0.6) Eos # (0.0-0.7) Baso # (0.0-2.0) K/mm3 pCO2 (35-45) mm/Hg pO2 (80-100) mm/Hg HCO3 (21-28) mmol/L ABG pH (7.35-7.45) ABG Total CO2 (22-28) mmol.L ABG O2 Saturation (95-98) % ABG O2 Content (15-23) ML/dl ABG Base Excess (-2.0-3.0) mmol/L ABG Hemoglobin (11.7-17.4) g/dL ABG Carboxyhemoglobin (0.5-1.5) % POC ABG HHb (Measured) (0-5) % ABG Methemoglobin (0.0-3.0) % ABG O2 Capacity (16-24) mL/dl Hgb O2 Saturation (95.0-98.0) % FiO2 % Sodium (132-148) mmol/L Potassium (3.6-5.0) mmol/L Chloride (95-110) mmol/L Carbon Dioxide (21-33) mmol/L Anion Gap (10-20) BUN (7-21) mg/dL Creatinine (0.8-1.5) mg/dL Est GFR ( Amer) Est GFR (Non-Af Amer) POC Glucose (mg/dL) 128 H 109 121 H (65-110) mg/dL Random Glucose (70-110) mg/dL Calcium (8.4-10.5) mg/dL Total Bilirubin (0.2-1.3) mg/dL AST (17-59) U/L ALT (7-56) U/L Alkaline Phosphatase (38-126) U/L Total Protein (5.8-8.3) g/dL Albumin (3.0-4.8) g/dL Globulin gm/dL Albumin/Globulin Ratio (1.1-1.8) Laboratory Results - last 24 hr 03/29/17 03/29/17 03/29/17 06:40 11:50 21:55 WBC RBC Hgb Hct MCV MCH MCHC RDW Plt Count MPV Gran % Lymph % (Auto) [place] % (Auto) Eos % (Auto) Baso % (Auto) Gran # Lymph # [place] # Eos # Baso # pCO2 pO2 HCO3 ABG pH ABG Total CO2 ABG O2 Saturation ABG O2 Content ABG Base Excess ABG Hemoglobin ABG Carboxyhemoglobin POC ABG HHb (Measured) ABG Methemoglobin ABG O2 Capacity Hgb O2 Saturation FiO2 Sodium Potassium Chloride Carbon Dioxide Anion Gap BUN Creatinine Est GFR ( Amer) Est GFR (Non-Af Amer) POC Glucose (mg/dL) 121 H 109 128 H Random Glucose Calcium Total Bilirubin AST ALT Alkaline Phosphatase Total Protein Albumin Globulin Albumin/Globulin Ratio 03/30/17 03/30/17 03/30/17 05:00 07:15 07:15 WBC 9.0 RBC 3.29 L Hgb 9.6 L Hct 29.1 L MCV 88.4 MCH 29.2 MCHC 33.0 RDW 13.5 Plt Count 379 MPV 9.8 Gran % 62.0 Lymph % (Auto) 16.7 L [place] % (Auto) 16.6 H Eos % (Auto) 2.9 Baso % (Auto) 1.8 Gran # 5.55 Lymph # 1.5 [place] # 1.5 H Eos # 0.3 Baso # 0.16 pCO2 37 pO2 158.0 H HCO3 30.2 H ABG pH 7.52 H ABG Total CO2 31.3 H ABG O2 Saturation 99.4 H ABG O2 Content 12.6 L ABG Base Excess 6.9 H ABG Hemoglobin 9.0 L ABG Carboxyhemoglobin 1.7 H POC ABG HHb (Measured) 0.6 ABG Methemoglobin 1.0 ABG O2 Capacity 12.7 L Hgb O2 Saturation 96.8 FiO2 35.0 Sodium 139 Potassium 3.7 Chloride 99 Carbon Dioxide 31 Anion Gap 13 BUN 7 Creatinine 0.4 L Est GFR ( Amer) > 60 Est GFR (Non-Af Amer) > 60 POC Glucose (mg/dL) Random Glucose 127 H Calcium 8.8 Total Bilirubin 1.3 AST 74 H D ALT 57 H Alkaline Phosphatase 189 H Total Protein 8.0 Albumin 3.3 Globulin 4.7 Albumin/Globulin Ratio 0.7 L Fingerstick Blood Sugar Results: 138 Critical Care Progress Note - Nutrition Nutrition: Nutrition Category Date Time Status NPO Diet [DIET] Diets 03/14/17 Breakfast Ordered <Markus Call - Last Filed: 03/30/17 13:00> CCU Subjective - Physician Review Subjective (Free Text): 03/30/17 12:57 Patient seen and examined, case discussed with resident on rounds, agree with note with following additions/exceptions: Patient is a 36 yo M with past medical history of substance abuse, depression, bipolar disorder, hypertension, anxiety disorder that who was admitted for cardiac arrest in the field (downtime unknown) due to multi-drug overdose, with two further episodes of cardiac arrest on arrival, and witnessed seizure prior to initiation of increased sedation and paralytics. Remains off paralytics, but remains on high doses of sedatives due to multiple witnessed seizures. S/ p Trach/G-tube placement POD#4. Overall prognosis is extremely poor. s/p Cardiac Arrest,unknown downtime Anoxic brain injury, s/p Peg/Trach Seizure disorder, status epilpeticus Recommend: - cont with ventilatory support, PS trials as tolerated - cont with Cefepime, Vanco, follow up ID - BP control - Propofol/Fentanyl, Ativan for 24 hours and Dilantin/Keppra/Valproic Acid, multiple attempts at other institutions for transfer for continuous VEEG monitoring for phenobarb coma have been denied - monitor electrolytes - follow up blood cultures, no current indwelling lines present - follow up neurology - Feeds - GI ppx - DVT ppx - patient is full code - extremely poor prognosis - follow up palliative care CCU Objective - Vital Signs / Intake & Output Vital Signs (Last 4 hours): Vital Signs Pulse BP 03/30/17 10:21 132 H 158/93 H 03/30/17 10:19 132 H 158/93 H Intake and Output (Last 8hrs): Intake & Output 03/29/17 03/30/17 03/30/17 22:59 06:59 14:59 Intake Total 2884 2574 Output Total 3150 2500 Balance -266 74 Intake: IV 2524 2174 Left Forearm 2324 360 Left Hand 1264 Tube Feeding 360 400 Output: Urine 3150 2500 Urethral (Armenta) 3150 2500 Other: # Bowel Movements 0 - Medications Active Medications: Active Medications Generic Name Dose Route Start Last Admin Trade Name Freq PRN Reason Stop Dose Admin Acetaminophen 325 mg 03/22/17 20:47 03/30/17 07:52 Tylenol 325 Mg Supp RC 325 mg Q4H PRN Administration Fever >100.4 F Albuterol/Ipratropium 3 ml 03/13/17 15:07 03/30/17 06:42 Duoneb 3 Mg/0.5 Mg (3 Ml) Ud IH 3 ml Q2H PRN Administration Shortness of Breath Propofol 1,000 mg in 100 mls @ 3.674 mls/hr 03/12/17 07:41 03/30/17 06:26 Diprivan IV 50 mcg/kg/min .Q24H PRN 36.741 mls/hr TITRATE PER MD ORDER Administration Protocol 5 MCG/KG/MIN Phenytoin 100 mg/ Sodium 52 mls @ 104 mls/hr 03/18/17 10:00 03/30/17 10:10 Chloride IVPB 104 mls/hr TID MARICHUY Administration Valproate Sodium 500 mg/ 105 mls @ 100 mls/hr 03/21/17 14:00 03/30/17 06:18 Sodium Chloride IVPB 100 mls/hr Q8 MARICHUY Administration Levetiracetam 1,500 mg/ Sodium 115 mls @ 460 mls/hr 03/24/17 15:20 03/30/17 10:17 Chloride IV 460 mls/hr Q12 MARICHUY Administration Potassium Chloride 40 meq/ 1,020 mls @ 60 mls/hr 03/27/17 14:54 03/30/17 10: 25 Sodium Chloride IV 60 mls/hr .Q17H MARICHUY Administration Cefepime HCl 1 gm in 100 mls @ 100 mls/hr 03/27/17 22:00 03/30/17 10:23 Maxipime 1gm IVPB 100 mls/hr Q12 MARICHUY Administration Protocol Midazolam HCl 250 mg/ Sodium 250 mls @ 20 mls/hr 03/29/17 16:00 03/30/17 06: 27 Chloride IV 20 mg/hr .Q12.5H PRN 20 mls/hr TITRATE PER PROTOCOL Administration Protocol 20 MG/HR Fentanyl 5,000 mcg/ Sodium 250 mls @ 10 mls/hr 03/29/17 16:00 03/29/17 17:24 Chloride IV 200 mcg/hr .Q24H PRN 10 mls/hr TITRATE PER PROTOCOL Administration Protocol 200 MCG/HR Lorazepam 2 mg 03/28/17 10:02 03/29/17 23:52 Ativan IVP 2 mg Q4H PRN Administration Anxiety Protocol Magnesium Oxide 400 mg 03/27/17 10:00 03/30/17 10:22 Mag-Ox PO 400 mg TID MARICHUY Administration Metoprolol Tartrate 5 mg 03/21/17 16:38 03/30/17 10:19 Lopressor IVP 5 mg Q4 PRN Administration sbp>160 or HR > 130 BPM Metoprolol Tartrate 25 mg 03/30/17 11:06 Lopressor PO BID MARICHUY Pantoprazole Sodium 40 mg 03/20/17 22:00 03/30/17 10:28 Protonix Inj IVP 40 mg Q12 MARICHUY Administration - Patient Studies Lab Studies: Microbiology Studies 03/27/17 09:30 S.aureus & Coag-Neg Staph PNA FISH - Final Blood Blood Culture - Final Coagulase Neg Staphylococcus Gram Stain - Final Lab Studies 03/30/17 03/30/17 03/30/17 Range/Units 07:15 07:15 05:00 WBC 9.0 (4.5-11.0) 10^3/ul RBC 3.29 L (3.5-6.1) 10^6/uL Hgb 9.6 L (14.0-18.0) g/dL Hct 29.1 L (42.0-52.0) % MCV 88.4 (80.0-105.0) fl MCH 29.2 (25.0-35.0) pg MCHC 33.0 (31.0-37.0) g/dl RDW 13.5 (11.5-14.5) % Plt Count 379 (120.0-450.0) 10^3/uL MPV 9.8 (7.0-11.0) fl Gran % 62.0 (50.0-68.0) % Lymph % (Auto) 16.7 L (22.0-35.0) % [place] % (Auto) 16.6 H (1.0-6.0) % Eos % (Auto) 2.9 (1.5-5.0) % Baso % (Auto) 1.8 (0.0-3.0) % Gran # 5.55 (1.4-6.5) Lymph # 1.5 (1.2-3.4) [place] # 1.5 H (0.1-0.6) Eos # 0.3 (0.0-0.7) Baso # 0.16 (0.0-2.0) K/mm3 pCO2 37 (35-45) mm/Hg pO2 158.0 H (80-100) mm/Hg HCO3 30.2 H (21-28) mmol/L ABG pH 7.52 H (7.35-7.45) ABG Total CO2 31.3 H (22-28) mmol.L ABG O2 Saturation 99.4 H (95-98) % ABG O2 Content 12.6 L (15-23) ML/dl ABG Base Excess 6.9 H (-2.0-3.0) mmol/L ABG Hemoglobin 9.0 L (11.7-17.4) g/dL ABG Carboxyhemoglobin 1.7 H (0.5-1.5) % POC ABG HHb (Measured) 0.6 (0-5) % ABG Methemoglobin 1.0 (0.0-3.0) % ABG O2 Capacity 12.7 L (16-24) mL/dl Hgb O2 Saturation 96.8 (95.0-98.0) % FiO2 35.0 % Sodium 139 (132-148) mmol/L Potassium 3.7 (3.6-5.0) mmol/L Chloride 99 (95-110) mmol/L Carbon Dioxide 31 (21-33) mmol/L Anion Gap 13 (10-20) BUN 7 (7-21) mg/dL Creatinine 0.4 L (0.8-1.5) mg/dL Est GFR ( Amer) > 60 Est GFR (Non-Af Amer) > 60 POC Glucose (mg/dL) (65-110) mg/dL Random Glucose 127 H (70-110) mg/dL Calcium 8.8 (8.4-10.5) mg/dL Total Bilirubin 1.3 (0.2-1.3) mg/dL AST 74 H D (17-59) U/L ALT 57 H (7-56) U/L Alkaline Phosphatase 189 H (38-126) U/L Total Protein 8.0 (5.8-8.3) g/dL Albumin 3.3 (3.0-4.8) g/dL Globulin 4.7 gm/dL Albumin/Globulin Ratio 0.7 L (1.1-1.8) 03/29/17 Range/Units 21:55 WBC (4.5-11.0) 10^3/ul RBC (3.5-6.1) 10^6/uL Hgb (14.0-18.0) g/dL Hct (42.0-52.0) % MCV (80.0-105.0) fl MCH (25.0-35.0) pg MCHC (31.0-37.0) g/dl RDW (11.5-14.5) % Plt Count (120.0-450.0) 10^3/uL MPV (7.0-11.0) fl Gran % (50.0-68.0) % Lymph % (Auto) (22.0-35.0) % [place] % (Auto) (1.0-6.0) % Eos % (Auto) (1.5-5.0) % Baso % (Auto) (0.0-3.0) % Gran # (1.4-6.5) Lymph # (1.2-3.4) [place] # (0.1-0.6) Eos # (0.0-0.7) Baso # (0.0-2.0) K/mm3 pCO2 (35-45) mm/Hg pO2 (80-100) mm/Hg HCO3 (21-28) mmol/L ABG pH (7.35-7.45) ABG Total CO2 (22-28) mmol.L ABG O2 Saturation (95-98) % ABG O2 Content (15-23) ML/dl ABG Base Excess (-2.0-3.0) mmol/L ABG Hemoglobin (11.7-17.4) g/dL ABG Carboxyhemoglobin (0.5-1.5) % POC ABG HHb (Measured) (0-5) % ABG Methemoglobin (0.0-3.0) % ABG O2 Capacity (16-24) mL/dl Hgb O2 Saturation (95.0-98.0) % FiO2 % Sodium (132-148) mmol/L Potassium (3.6-5.0) mmol/L Chloride (95-110) mmol/L Carbon Dioxide (21-33) mmol/L Anion Gap (10-20) BUN (7-21) mg/dL Creatinine (0.8-1.5) mg/dL Est GFR ( Amer) Est GFR (Non-Af Amer) POC Glucose (mg/dL) 128 H (65-110) mg/dL Random Glucose (70-110) mg/dL Calcium (8.4-10.5) mg/dL Total Bilirubin (0.2-1.3) mg/dL AST (17-59) U/L ALT (7-56) U/L Alkaline Phosphatase (38-126) U/L Total Protein (5.8-8.3) g/dL Albumin (3.0-4.8) g/dL Globulin gm/dL Albumin/Globulin Ratio (1.1-1.8) Laboratory Results - last 24 hr 03/29/17 03/30/17 03/30/17 21:55 05:00 07:15 WBC 9.0 RBC 3.29 L Hgb 9.6 L Hct 29.1 L MCV 88.4 MCH 29.2 MCHC 33.0 RDW 13.5 Plt Count 379 MPV 9.8 Gran % 62.0 Lymph % (Auto) 16.7 L [place] % (Auto) 16.6 H Eos % (Auto) 2.9 Baso % (Auto) 1.8 Gran # 5.55 Lymph # 1.5 [place] # 1.5 H Eos # 0.3 Baso # 0.16 pCO2 37 pO2 158.0 H HCO3 30.2 H ABG pH 7.52 H ABG Total CO2 31.3 H ABG O2 Saturation 99.4 H ABG O2 Content 12.6 L ABG Base Excess 6.9 H ABG Hemoglobin 9.0 L ABG Carboxyhemoglobin 1.7 H POC ABG HHb (Measured) 0.6 ABG Methemoglobin 1.0 ABG O2 Capacity 12.7 L Hgb O2 Saturation 96.8 FiO2 35.0 Sodium Potassium Chloride Carbon Dioxide Anion Gap BUN Creatinine Est GFR ( Amer) Est GFR (Non-Af Amer) POC Glucose (mg/dL) 128 H Random Glucose Calcium Total Bilirubin AST ALT Alkaline Phosphatase Total Protein Albumin Globulin Albumin/Globulin Ratio 03/30/17 07:15 WBC RBC Hgb Hct MCV MCH MCHC RDW Plt Count MPV Gran % Lymph % (Auto) [place] % (Auto) Eos % (Auto) Baso % (Auto) Gran # Lymph # [place] # Eos # Baso # pCO2 pO2 HCO3 ABG pH ABG Total CO2 ABG O2 Saturation ABG O2 Content ABG Base Excess ABG Hemoglobin ABG Carboxyhemoglobin POC ABG HHb (Measured) ABG Methemoglobin ABG O2 Capacity Hgb O2 Saturation FiO2 Sodium 139 Potassium 3.7 Chloride 99 Carbon Dioxide 31 Anion Gap 13 BUN 7 Creatinine 0.4 L Est GFR ( Amer) > 60 Est GFR (Non-Af Amer) > 60 POC Glucose (mg/dL) Random Glucose 127 H Calcium 8.8 Total Bilirubin 1.3 AST 74 H D ALT 57 H Alkaline Phosphatase 189 H Total Protein 8.0 Albumin 3.3 Globulin 4.7 Albumin/Globulin Ratio 0.7 L Critical Care Progress Note - Nutrition Nutrition: Nutrition Category Date Time Status NPO Diet [DIET] Diets 03/14/17 Breakfast Ordered
[2017-03-30] MEDS ORDERED: Fentanyl 1000mcg/100ml NS 1,000 MCG/100 ML BAG IV PRN (14:00)
[2017-03-30 15:48] VITALS: BP 172/91; PULSE 128
--- NOTE | 2017-03-30 16:35 | CP.PCM.DIS ---
<Jerman Kilgore - Last Filed: 03/30/17 16:32> Provider - Provider Date of Admission: 03/11/17 23:15 Attending physician: Raheel Espitia MD Primary care physician: Carolyn Almanza MD Consults: Neuro: Anju Cardio: Elkind Nephro: Zeniai GS: Eric Palliative: Paramonte ID: Go Time Spent in preparation of Discharge (in minutes): 65 Diagnosis - Discharge Diagnosis (1) Anoxic brain injury Status: Acute Priority: High Comment: Due to multiple cardiac arrests, unknown total downtime (2) Cardiac arrest Status: Resolved Priority: High Comment: Cardiac Arrest x3, total downtime unknown, likely due to polysubtance overdose (3) Electrolyte imbalance Status: Chronic Priority: Medium Comment: Requires repeated repletion of Potassium and Magnesium (4) Overdose Status: Resolved Priority: High Comment: Likely intentional polysubstance overdose, found with numerous pill types and empty bottle of alcohol when down, Urine tox screen positive for opiates/benzos/barbituates (5) ARDS (adult respiratory distress syndrome) Status: Resolved Priority: High (6) Acute renal failure Status: Resolved Priority: High Hospital Course - Lab Results Lab Results: Micro Results 03/27/17 09:30 Blood S.aureus & Coag-Neg Staph PNA FISH - Final 03/27/17 09:30 Blood Blood Culture - Final Coagulase Neg Staphylococcus 03/27/17 09:30 Blood Gram Stain - Final 03/23/17 12:00 Blood Blood Culture - Final NO GROWTH AFTER 5 DAYS 03/23/17 12:00 Blood Gram Stain - Final TEST NOT PERFORMED 03/27/17 14:00 Urine,Armenta Urine Culture - Final No Growth (<1,000 CFU/ML) 03/23/17 10:15 Blood Blood Culture - Final NO GROWTH AFTER 5 DAYS 03/23/17 10:15 Blood Gram Stain - Final TEST NOT PERFORMED 03/20/17 13:30 Blood Blood Culture - Final NO GROWTH AFTER 5 DAYS 03/20/17 13:30 Blood Gram Stain - Final TEST NOT PERFORMED 03/20/17 13:30 Blood Blood Culture - Final NO GROWTH AFTER 5 DAYS 03/20/17 13:30 Blood Gram Stain - Final TEST NOT PERFORMED 03/20/17 14:00 Urine,Catheterized Urine Culture - Final No Growth (<1,000 CFU/ML) 03/16/17 22:00 Blood-Venous Blood Culture - Final NO GROWTH AFTER 5 DAYS 03/16/17 22:00 Blood-Venous Gram Stain - Final TEST NOT PERFORMED 03/16/17 21:30 Blood-Venous Blood Culture - Final NO GROWTH AFTER 5 DAYS 03/16/17 21:30 Blood-Venous Gram Stain - Final TEST NOT PERFORMED 03/16/17 12:13 Sputum Gram Stain - Final 03/16/17 12:13 Sputum Sputum Culture - Final Yeast Species 03/16/17 23:00 Urine,Armenta Urine Culture - Final No Growth (<1,000 CFU/ML) 03/12/17 06:40 Blood-Venous Blood Culture - Final NO GROWTH AFTER 5 DAYS 03/12/17 06:40 Blood-Venous Gram Stain - Final TEST NOT PERFORMED 03/12/17 06:00 Blood-Venous Blood Culture - Final NO GROWTH AFTER 5 DAYS 03/12/17 06:00 Blood-Venous Gram Stain - Final TEST NOT PERFORMED 03/15/17 12:10 Sputum Gram Stain - Final 03/15/17 12:10 Sputum Sputum Culture - Final 03/12/17 03:00 Nose MRSA Culture (Admit) - Final MRSA NOT DETECTED Most Recent Lab Values WBC 9.0 10^3/ul (4.5-11.0) 03/30/17 07:15 RBC 3.29 10^6/uL (3.5-6.1) L 03/30/17 07:15 Hgb 9.6 g/dL (14.0-18.0) L 03/30/17 07:15 Hct 29.1 % (42.0-52.0) L 03/30/17 07:15 MCV 88.4 fl (80.0-105.0) 03/30/17 07:15 MCH 29.2 pg (25.0-35.0) 03/30/17 07:15 MCHC 33.0 g/dl (31.0-37.0) 03/30/17 07:15 RDW 13.5 % (11.5-14.5) 03/30/17 07:15 Plt Count 379 10^3/uL (120.0-450.0) 03/30/17 07:15 MPV 9.8 fl (7.0-11.0) 03/30/17 07:15 Gran % 62.0 % (50.0-68.0) 03/30/17 07:15 Lymph % (Auto) 16.7 % (22.0-35.0) L 03/30/17 07:15 [place] % (Auto) 16.6 % (1.0-6.0) H 03/30/17 07:15 Eos % (Auto) 2.9 % (1.5-5.0) 03/30/17 07:15 Baso % (Auto) 1.8 % (0.0-3.0) 03/30/17 07:15 Gran # 5.55 (1.4-6.5) 03/30/17 07:15 Lymph # 1.5 (1.2-3.4) 03/30/17 07:15 [place] # 1.5 (0.1-0.6) H 03/30/17 07:15 Eos # 0.3 (0.0-0.7) 03/30/17 07:15 Baso # 0.16 K/mm3 (0.0-2.0) 03/30/17 07:15 PT 11.9 Seconds (9.9-11.8) H 03/22/17 05:30 INR 1.10 (0.93-1.08) H 03/22/17 05:30 APTT 24.9 Seconds (23.7-30.8) 03/22/17 05:30 pCO2 37 mm/Hg (35-45) 03/30/17 05:00 pO2 158.0 mm/Hg (80-100) H 03/30/17 05:00 HCO3 30.2 mmol/L (21-28) H 03/30/17 05:00 ABG pH 7.52 (7.35-7.45) H 03/30/17 05:00 ABG Total CO2 31.3 mmol.L (22-28) H 03/30/17 05:00 ABG O2 Saturation 99.4 % (95-98) H 03/30/17 05:00 ABG O2 Content 12.6 ML/dl (15-23) L 03/30/17 05:00 ABG Base Excess 6.9 mmol/L (-2.0-3.0) H 03/30/17 05:00 ABG Hemoglobin 9.0 g/dL (11.7-17.4) L 03/30/17 05:00 ABG Carboxyhemoglobin 1.7 % (0.5-1.5) H 03/30/17 05:00 POC ABG HHb (Measured) 0.6 % (0-5) 03/30/17 05:00 ABG Methemoglobin 1.0 % (0.0-3.0) 03/30/17 05:00 ABG O2 Capacity 12.7 mL/dl (16-24) L 03/30/17 05:00 ABG Potassium 3.2 mmol/L (3.6-5.2) L 03/26/17 05:10 VBG pH 7.18 (7.32-7.43) L* 03/12/17 09:23 VBG pCO2 53.0 (40-60) 03/12/17 09:23 VBG HCO3 19.8 mmol/l (21-28) L 03/12/17 09:23 VBG Total CO2 21.4 mmol.L (22-28) L 03/12/17 09:23 VBG O2 Sat (Calc) 99.3 % (40-65) H 03/12/17 09:23 VBG Base Excess -8.9 mmol/L (0.0-2.0) L 03/12/17 09:23 VBG Potassium 4.7 mmol/L (3.6-5.2) 03/12/17 09:23 Hgb O2 Saturation 96.8 % (95.0-98.0) 03/30/17 05:00 Sodium 140.0 mmol/L (132-148) 03/26/17 05:10 Chloride 107.0 mmol/L (98-107) 03/26/17 05:10 Glucose 103 mg/dl (75-110) 03/26/17 05:10 Lactate 0.7 mmol/L (0.7-2.1) 03/26/17 05:10 Mechanical Rate 15 03/26/17 05:10 FiO2 35.0 % 03/30/17 05:00 Tidal Volume 400 03/26/17 05:10 PEEP 8 03/26/17 05:10 Sodium 139 mmol/L (132-148) 03/30/17 07:15 Potassium 3.7 mmol/L (3.6-5.0) 03/30/17 07:15 Chloride 99 mmol/L (95-110) 03/30/17 07:15 Carbon Dioxide 31 mmol/L (21-33) 03/30/17 07:15 Anion Gap 13 (10-20) 03/30/17 07:15 BUN 7 mg/dL (7-21) 03/30/17 07:15 Creatinine 0.4 mg/dL (0.8-1.5) L 03/30/17 07:15 Est GFR ( Amer) > 60 03/30/17 07:15 Est GFR (Non-Af Amer) > 60 03/30/17 07:15 POC Glucose (mg/dL) 128 mg/dL (65-110) H 03/29/17 21:55 Random Glucose 127 mg/dL (70-110) H 03/30/17 07:15 Serum Osmolality 290 mosm/kg (272-300) 03/25/17 08:30 Lactic Acid 1.0 mmol/L (0.7-2.1) 03/16/17 05:30 Calcium 8.8 mg/dL (8.4-10.5) 03/30/17 07:15 Phosphorus 3.3 mg/dL (2.5-4.5) 03/29/17 05:20 Magnesium 1.3 mg/dL (1.7-2.2) L 03/29/17 05:20 Iron 50 ug/dL (45-180) 03/18/17 Unknown TIBC 204 ug/dL (261-462) L 03/18/17 Unknown % Saturation 24 % (20-55) 03/18/17 Unknown Ferritin 312.0 ng/mL 03/18/17 08:00 Total Bilirubin 1.3 mg/dL (0.2-1.3) 03/30/17 07:15 AST 74 U/L (17-59) H D 03/30/17 07:15 ALT 57 U/L (7-56) H 03/30/17 07:15 Alkaline Phosphatase 189 U/L (38-126) H 03/30/17 07:15 Lactate Dehydrogenase 3576 U/L (333-699) H 03/11/17 22:49 Total Creatine Kinase 233 U/L (35-230) H 03/12/17 05:30 CK-MB (CK-2) 2.5 ng/mL (0.0-3.6) 03/12/17 05:30 CK-MB (CK-2) % Cancelled 03/12/17 05:30 Troponin I 0.13 ng/mL H* D 03/12/17 12:20 NT-Pro-B Natriuret Pep 4410 pg/mL (0-450) H 03/15/17 12:00 Total Protein 8.0 g/dL (5.8-8.3) 03/30/17 07:15 Albumin 3.3 g/dL (3.0-4.8) 03/30/17 07:15 Globulin 4.7 gm/dL 03/30/17 07:15 Albumin/Globulin Ratio 0.7 (1.1-1.8) L 03/30/17 07:15 Triglycerides 724 mg/dL (35-160) H 03/22/17 05:30 Lipase 49 U/L (23-300) 03/11/17 22:49 Procalcitonin 0.26 NG/ML (0.19-0.49) 03/27/17 09:30 Arterial Blood Potassium 3.2 mmol/L (3.6-5.2) L 03/26/17 05:10 Venous Blood Potassium 4.7 mmol/L (3.6-5.2) 03/12/17 09:23 Urine Color Darlin (YELLOW) 03/27/17 14:00 Urine Appearance Clear (CLEAR) 03/27/17 14:00 Urine pH 6.5 (4.7-8.0) 03/27/17 14:00 Ur Specific [place] 1.020 (1.005-1.035) 03/27/17 14:00 Urine Protein 30 mg/dL (<30 mg/dL) H 03/27/17 14:00 Urine Glucose (UA) Negative mg/dL (NEGATIVE) 03/27/17 14:00 Urine Ketones 15 mg/dL (NEGATIVE) H 03/27/17 14:00 Urine Blood Negative (NEGATIVE) 03/27/17 14:00 Urine Nitrate Negative (NEGATIVE) 03/27/17 14:00 Urine Bilirubin Moderate (NEGATIVE) H 03/27/17 14:00 Urine Urobilinogen 1.0 E.U./dL (<1 E.U./dL) H 03/27/17 14:00 Ur Leukocyte Esterase Negative Marisela/uL (NEGATIVE) 03/27/17 14:00 Urine RBC 1 - 3 /hpf (0-2) 03/27/17 14:00 Urine WBC 2 - 5 /hpf (0-6) 03/27/17 14:00 Ur Epithelial Cells 3 - 4 /hpf (0-5) 03/27/17 14:00 Urine Bacteria Rare (NEG) 03/12/17 00:55 Hyaline Casts 0 - 2 /hpf 03/12/17 00:55 Urine Other Usperm 03/12/17 00:55 Urine Osmolality 415 mosm/kg (300-1000) 03/26/17 22:39 Ur Random Creatinine 16 mg/dL 03/13/17 12:00 Ur Random Sodium 97 meq/L 03/26/17 22:39 Ur Random Potassium 18.3 meq/L 03/26/17 22:39 Ur Random Urea Nitrogn 345 mg/dL 03/26/17 22:39 Stool Occult Blood Negative (NEGATIVE) 03/22/17 06:30 Vancomycin Trough 5.2 ug/mL (5.0-10.0) 03/25/17 08:45 Salicylates < 1 mg/dL (2.0-20.0) L 03/11/17 22:49 Urine Opiates Screen Positive (NEGATIVE) H 03/12/17 00:55 Urine Methadone Screen Negative (NEGATIVE) 03/12/17 00:55 Acetaminophen < 10.0 ug/ml (10.0-20.0) L 03/11/17 22:49 Ur Barbiturates Screen Positive (NEGATIVE) H 03/12/17 00:55 Phenytoin 5 ug/mL (10-20) L 03/29/17 05:20 Levetiracetam 18.8 mcg/mL 03/24/17 13:45 Ur Phencyclidine Scrn Negative (NEGATIVE) 03/12/17 00:55 Ur Amphetamines Screen Negative (NEGATIVE) 03/12/17 00:55 U Benzodiazepines Scrn Positive (NEGATIVE) H 03/12/17 00:55 U Oth Cocaine Metabols Negative (NEGATIVE) 03/12/17 00:55 U Cannabinoids Screen Negative (NEGATIVE) 03/12/17 00:55 Alcohol, Quantitative < 10 mg/dL (0-10) 03/11/17 22:49 Ur L.pneumophila Ag Negative (NEGATIVE) 03/15/17 18:24 Pneumocystis Source Serum 03/16/17 05:30 S. pneumoniae Antigen Not detected 03/16/17 05:30 Blood Type A POSITIVE 03/20/17 09:00 Blood Type Confirm A POSITIVE 03/20/17 09:57 Antibody Screen Negative 03/20/17 09:00 BBK History Checked No verified bt 03/20/17 09:00 - Hospital Course Hospital Course: This is a 36 yo M with PMH of substance abuse, depression, bipolar disorder, hypertension, and anxiety disorder who was found down by family and police at his apartment, arrested in the field, was resuscitated/intubated and brought to [facility], arrested 2 more times requiring additional resuscitative measures, and then transferred the ICU on a ventilator. He was suspected of intentional overdose of multiple medications, as he was found with several pill types in his presence and an empty bottle of alcohol, and had missed an appointment with one of his home physicians earlier in the day. While here, he was determined to have significant anoxic injury on CT/MRI, with bilateral thalamic involvement on MRI, and was noted to have multiple seizures despite heavy sedation and anti-seizure medications, concerning for status epilepticus. He was also determined to be in severe ARDS on admission, requiring use of paralytics, which has since resolves (weaned off of paralytics for >2 weeks at time of discharge). Multiple family discussions were had with family, Extension Worker, and Neurologist, explaining the patient's poor prognosis, but family ( in particular) continued to want all measures done, and patient remained full code. While here, patient was seen by Surgery, Neuro, ID, Nephro, Cardio, and Palliative service. As per Neuro, only remaining option for patient in Status Epilepticus despite sedation with Propofol/Versed/Fentanyl and seizure ppx with Keppra/Valproic Acid/Phenytoin would be transfer to a center with 24-hour EEG monitoring for Barbituate Coma; all efforts to transfer patient were unsuccessful. As per ID, possible persistent fevers are Central in origin; completed 7 day course of Vanco, finish out a 7-day course of Cefepime. As per Cardio, his persistent Tachycardia is likely physiologic, no additional intervention besides current beta-sussy regimen recommended. Trach and Gastrostomy tube placed by General Surgery (today is POD #5), cleared to use Gastrotomy tube for feedings. Patient was accepted to LTAC for long-term monitoring and care as per Jewel Cupping Machine Operator. Transport arranged, instructions from specialists reviewed with at bedside, who expressed understanding and agreement. Option for PICC line placement prior to discharge was offered to , who declined, preferring to wait until at LTAC to have any PICC lines placed. Patient was then discharged to LTAC. Patient seen, reviewed, and discussed with attending, Dr. Espitia. Discharge Exam - Additional Findings Additional findings: Head: Positive for: Atraumatic, Normocephalic. Negative for: Ecchymosis, Abrasion, Laceration Pupils: Positive for: Pinpoint but mildly reactive (equal bilaterally) to direct light challenge. Negative for: PERRL Extroacular Muscles: Positive for: Other (unable to assess due to not following commands, not moving eyes spontaneously, no avoidance of direct light challenge for PERRL assessment; decreased intermittent fluttering of eyelids, eyes remain gazing downward, No doll eyes). Negative for: EOMI Conjunctiva: Negative for: Injected, Icteric Mouth: Positive for: Moist Mucous Membranes, Other (Bite guard in place, ETT absent). Negative for: Drooling Nose (External): Positive for: Atraumatic, Other (NGT in place, no more coffee- ground colored drainage noted). Negative for: Abrasion, Contusion, Laceration Neck: Positive for: Trachea Midline, Other (Trach in place). Negative for: JVD Respiratory/Chest: Positive for: Clear to Auscultation, Good Air Exchange, Rales (mild-moderate rales in all breath [place], unchanged). Negative for: Accessory Muscle Use, Wheezes, Tachypneic Cardiovascular: Positive for: Normal S1, S2, Tachycardic (120's-130's on bedside monitor). Negative for: Murmurs, Irregular Rhythm Abdomen: Positive for: Feeding Tubes (Gastrostomy tube in place, covered with bandaging), Diminished but present bowel sounds (unchanged from multiple prior exams). Negative for: Distention (obese but not distended, soft on palpation, no palpable masses or pulsatile masses) Upper Extremity: Positive for: Normal Inspection. Negative for: Cyanosis, Edema , Normal ROM, NORMAL PULSES (faintly palpable radials +1), Swelling, Erythema, Deformity Lower Extremity: Positive for: Normal Inspection. Negative for: Edema, NORMAL PULSES (unable to palpate bilateral dorsalis pedis or posterior tibials), Cyanosis, Swelling, Erythema, Deformity Neurological: Positive for: Other (intubated and sedated), likely seizure activity with generalized myotonic jerks and generalized shaking. Negative for : GCS=15 (GCS 3 (E1 V1t M1)), CN II-XII Intact, Speech Normal, Motor Func Grossly Intact Skin: Positive for: Warm, Dry, Normal Color. Negative for: Rashes Psychiatric: Positive for: Other (sedated and intubated, unable to assess). Negative for: Alert, Oriented x 3, Normal Insight, Normal Concentration, Normal Affect, Normal Mood Discharge Plan - Discharge Medications Prescriptions: Cefepime 1gm in NS 100ml [Maxipime 1gm] 1 gm IVPB Q12 #8 bag levETIRAcetam 500mg IVPB [Keppra 500mg IVPB] 1,500 mg IVPB Q12 #60 bag Phenytoin [Dilantin] 100 mg IVPB TID #90 vial Valproic Acid (As Sodium Salt) [Valproic Acid] 500 mg IVPB Q8 #90 solution - Follow Up Plan Condition: CRITICAL Disposition: [facility] Referrals: Carolyn Almanza MD [Primary Care Provider] - <Raheel Espitia - Last Filed: 03/31/17 07:45> Provider - Provider Date of Admission: 03/11/17 23:15 Attending physician: Raheel Espitia MD Primary care physician: Carolyn Almanza MD Hospital Course - Lab Results Lab Results: Micro Results 03/27/17 09:30 Blood S.aureus & Coag-Neg Staph PNA FISH - Final 03/27/17 09:30 Blood Blood Culture - Final Coagulase Neg Staphylococcus 03/27/17 09:30 Blood Gram Stain - Final 03/23/17 12:00 Blood Blood Culture - Final NO GROWTH AFTER 5 DAYS 03/23/17 12:00 Blood Gram Stain - Final TEST NOT PERFORMED 03/27/17 14:00 Urine,Armenta Urine Culture - Final No Growth (<1,000 CFU/ML) 03/23/17 10:15 Blood Blood Culture - Final NO GROWTH AFTER 5 DAYS 03/23/17 10:15 Blood Gram Stain - Final TEST NOT PERFORMED 03/20/17 13:30 Blood Blood Culture - Final NO GROWTH AFTER 5 DAYS 03/20/17 13:30 Blood Gram Stain - Final TEST NOT PERFORMED 03/20/17 13:30 Blood Blood Culture - Final NO GROWTH AFTER 5 DAYS 03/20/17 13:30 Blood Gram Stain - Final TEST NOT PERFORMED 03/20/17 14:00 Urine,Catheterized Urine Culture - Final No Growth (<1,000 CFU/ML) 03/16/17 22:00 Blood-Venous Blood Culture - Final NO GROWTH AFTER 5 DAYS 03/16/17 22:00 Blood-Venous Gram Stain - Final TEST NOT PERFORMED 03/16/17 21:30 Blood-Venous Blood Culture - Final NO GROWTH AFTER 5 DAYS 03/16/17 21:30 Blood-Venous Gram Stain - Final TEST NOT PERFORMED 03/16/17 12:13 Sputum Gram Stain - Final 03/16/17 12:13 Sputum Sputum Culture - Final Yeast Species 03/16/17 23:00 Urine,Armenta Urine Culture - Final No Growth (<1,000 CFU/ML) 03/12/17 06:40 Blood-Venous Blood Culture - Final NO GROWTH AFTER 5 DAYS 03/12/17 06:40 Blood-Venous Gram Stain - Final TEST NOT PERFORMED 03/12/17 06:00 Blood-Venous Blood Culture - Final NO GROWTH AFTER 5 DAYS 03/12/17 06:00 Blood-Venous Gram Stain - Final TEST NOT PERFORMED 03/15/17 12:10 Sputum Gram Stain - Final 03/15/17 12:10 Sputum Sputum Culture - Final 03/12/17 03:00 Nose MRSA Culture (Admit) - Final MRSA NOT DETECTED Most Recent Lab Values WBC 9.0 10^3/ul (4.5-11.0) 03/30/17 07:15 RBC 3.29 10^6/uL (3.5-6.1) L 03/30/17 07:15 Hgb 9.6 g/dL (14.0-18.0) L 03/30/17 07:15 Hct 29.1 % (42.0-52.0) L 03/30/17 07:15 MCV 88.4 fl (80.0-105.0) 03/30/17 07:15 MCH 29.2 pg (25.0-35.0) 03/30/17 07:15 MCHC 33.0 g/dl (31.0-37.0) 03/30/17 07:15 RDW 13.5 % (11.5-14.5) 03/30/17 07:15 Plt Count 379 10^3/uL (120.0-450.0) 03/30/17 07:15 MPV 9.8 fl (7.0-11.0) 03/30/17 07:15 Gran % 62.0 % (50.0-68.0) 03/30/17 07:15 Lymph % (Auto) 16.7 % (22.0-35.0) L 03/30/17 07:15 [place] % (Auto) 16.6 % (1.0-6.0) H 03/30/17 07:15 Eos % (Auto) 2.9 % (1.5-5.0) 03/30/17 07:15 Baso % (Auto) 1.8 % (0.0-3.0) 03/30/17 07:15 Gran # 5.55 (1.4-6.5) 03/30/17 07:15 Lymph # 1.5 (1.2-3.4) 03/30/17 07:15 [place] # 1.5 (0.1-0.6) H 03/30/17 07:15 Eos # 0.3 (0.0-0.7) 03/30/17 07:15 Baso # 0.16 K/mm3 (0.0-2.0) 03/30/17 07:15 PT 11.9 Seconds (9.9-11.8) H 03/22/17 05:30 INR 1.10 (0.93-1.08) H 03/22/17 05:30 APTT 24.9 Seconds (23.7-30.8) 03/22/17 05:30 pCO2 37 mm/Hg (35-45) 03/30/17 05:00 pO2 158.0 mm/Hg (80-100) H 03/30/17 05:00 HCO3 30.2 mmol/L (21-28) H 03/30/17 05:00 ABG pH 7.52 (7.35-7.45) H 03/30/17 05:00 ABG Total CO2 31.3 mmol.L (22-28) H 03/30/17 05:00 ABG O2 Saturation 99.4 % (95-98) H 03/30/17 05:00 ABG O2 Content 12.6 ML/dl (15-23) L 03/30/17 05:00 ABG Base Excess 6.9 mmol/L (-2.0-3.0) H 03/30/17 05:00 ABG Hemoglobin 9.0 g/dL (11.7-17.4) L 03/30/17 05:00 ABG Carboxyhemoglobin 1.7 % (0.5-1.5) H 03/30/17 05:00 POC ABG HHb (Measured) 0.6 % (0-5) 03/30/17 05:00 ABG Methemoglobin 1.0 % (0.0-3.0) 03/30/17 05:00 ABG O2 Capacity 12.7 mL/dl (16-24) L 03/30/17 05:00 ABG Potassium 3.2 mmol/L (3.6-5.2) L 03/26/17 05:10 VBG pH 7.18 (7.32-7.43) L* 03/12/17 09:23 VBG pCO2 53.0 (40-60) 03/12/17 09:23 VBG HCO3 19.8 mmol/l (21-28) L 03/12/17 09:23 VBG Total CO2 21.4 mmol.L (22-28) L 03/12/17 09:23 VBG O2 Sat (Calc) 99.3 % (40-65) H 03/12/17 09:23 VBG Base Excess -8.9 mmol/L (0.0-2.0) L 03/12/17 09:23 VBG Potassium 4.7 mmol/L (3.6-5.2) 03/12/17 09:23 Hgb O2 Saturation 96.8 % (95.0-98.0) 03/30/17 05:00 Sodium 140.0 mmol/L (132-148) 03/26/17 05:10 Chloride 107.0 mmol/L (98-107) 03/26/17 05:10 Glucose 103 mg/dl (75-110) 03/26/17 05:10 Lactate 0.7 mmol/L (0.7-2.1) 03/26/17 05:10 Mechanical Rate 15 03/26/17 05:10 FiO2 35.0 % 03/30/17 05:00 Tidal Volume 400 03/26/17 05:10 PEEP 8 03/26/17 05:10 Sodium 139 mmol/L (132-148) 03/30/17 07:15 Potassium 3.7 mmol/L (3.6-5.0) 03/30/17 07:15 Chloride 99 mmol/L (95-110) 03/30/17 07:15 Carbon Dioxide 31 mmol/L (21-33) 03/30/17 07:15 Anion Gap 13 (10-20) 03/30/17 07:15 BUN 7 mg/dL (7-21) 03/30/17 07:15 Creatinine 0.4 mg/dL (0.8-1.5) L 03/30/17 07:15 Est GFR ( Amer) > 60 03/30/17 07:15 Est GFR (Non-Af Amer) > 60 03/30/17 07:15 POC Glucose (mg/dL) 138 mg/dL (65-110) H 03/30/17 06:01 Random Glucose 127 mg/dL (70-110) H 03/30/17 07:15 Serum Osmolality 290 mosm/kg (272-300) 03/25/17 08:30 Lactic Acid 1.0 mmol/L (0.7-2.1) 03/16/17 05:30 Calcium 8.8 mg/dL (8.4-10.5) 03/30/17 07:15 Phosphorus 3.3 mg/dL (2.5-4.5) 03/29/17 05:20 Magnesium 1.3 mg/dL (1.7-2.2) L 03/29/17 05:20 Iron 50 ug/dL (45-180) 03/18/17 Unknown TIBC 204 ug/dL (261-462) L 03/18/17 Unknown % Saturation 24 % (20-55) 03/18/17 Unknown Ferritin 312.0 ng/mL 03/18/17 08:00 Total Bilirubin 1.3 mg/dL (0.2-1.3) 03/30/17 07:15 AST 74 U/L (17-59) H D 03/30/17 07:15 ALT 57 U/L (7-56) H 03/30/17 07:15 Alkaline Phosphatase 189 U/L (38-126) H 03/30/17 07:15 Lactate Dehydrogenase 3576 U/L (333-699) H 03/11/17 22:49 Total Creatine Kinase 233 U/L (35-230) H 03/12/17 05:30 CK-MB (CK-2) 2.5 ng/mL (0.0-3.6) 03/12/17 05:30 CK-MB (CK-2) % Cancelled 03/12/17 05:30 Troponin I 0.13 ng/mL H* D 03/12/17 12:20 NT-Pro-B Natriuret Pep 4410 pg/mL (0-450) H 03/15/17 12:00 Total Protein 8.0 g/dL (5.8-8.3) 03/30/17 07:15 Albumin 3.3 g/dL (3.0-4.8) 03/30/17 07:15 Globulin 4.7 gm/dL 03/30/17 07:15 Albumin/Globulin Ratio 0.7 (1.1-1.8) L 03/30/17 07:15 Triglycerides 724 mg/dL (35-160) H 03/22/17 05:30 Lipase 49 U/L (23-300) 03/11/17 22:49 Procalcitonin 0.26 NG/ML (0.19-0.49) 03/27/17 09:30 Arterial Blood Potassium 3.2 mmol/L (3.6-5.2) L 03/26/17 05:10 Venous Blood Potassium 4.7 mmol/L (3.6-5.2) 03/12/17 09:23 Urine Color [place] (YELLOW) 03/27/17 14:00 Urine Appearance Clear (CLEAR) 03/27/17 14:00 Urine pH 6.5 (4.7-8.0) 03/27/17 14:00 Ur Specific [place] 1.020 (1.005-1.035) 03/27/17 14:00 Urine Protein 30 mg/dL (<30 mg/dL) H 03/27/17 14:00 Urine Glucose (UA) Negative mg/dL (NEGATIVE) 03/27/17 14:00 Urine Ketones 15 mg/dL (NEGATIVE) H 03/27/17 14:00 Urine Blood Negative (NEGATIVE) 03/27/17 14:00 Urine Nitrate Negative (NEGATIVE) 03/27/17 14:00 Urine Bilirubin Moderate (NEGATIVE) H 03/27/17 14:00 Urine Urobilinogen 1.0 E.U./dL (<1 E.U./dL) H 03/27/17 14:00 Ur Leukocyte Esterase Negative [place]/uL (NEGATIVE) 03/27/17 14:00 Urine RBC 1 - 3 /hpf (0-2) 03/27/17 14:00 Urine WBC 2 - 5 /hpf (0-6) 03/27/17 14:00 Ur Epithelial Cells 3 - 4 /hpf (0-5) 03/27/17 14:00 Urine Bacteria Rare (NEG) 03/12/17 00:55 Hyaline Casts 0 - 2 /hpf 03/12/17 00:55 Urine Other Usperm 03/12/17 00:55 Urine Osmolality 415 mosm/kg (300-1000) 03/26/17 22:39 Ur Random Creatinine 16 mg/dL 03/13/17 12:00 Ur Random Sodium 97 meq/L 03/26/17 22:39 Ur Random Potassium 18.3 meq/L 03/26/17 22:39 Ur Random Urea Nitrogn 345 mg/dL 03/26/17 22:39 Stool Occult Blood Negative (NEGATIVE) 03/22/17 06:30 Vancomycin Trough 5.2 ug/mL (5.0-10.0) 03/25/17 08:45 Salicylates < 1 mg/dL (2.0-20.0) L 03/11/17 22:49 Urine Opiates Screen Positive (NEGATIVE) H 03/12/17 00:55 Urine Methadone Screen Negative (NEGATIVE) 03/12/17 00:55 Acetaminophen < 10.0 ug/ml (10.0-20.0) L 03/11/17 22:49 Ur Barbiturates Screen Positive (NEGATIVE) H 03/12/17 00:55 Phenytoin 5 ug/mL (10-20) L 03/29/17 05:20 Levetiracetam 18.8 mcg/mL 03/24/17 13:45 Ur Phencyclidine Scrn Negative (NEGATIVE) 03/12/17 00:55 Ur Amphetamines Screen Negative (NEGATIVE) 03/12/17 00:55 U Benzodiazepines Scrn Positive (NEGATIVE) H 03/12/17 00:55 U Oth Cocaine Metabols Negative (NEGATIVE) 03/12/17 00:55 U Cannabinoids Screen Negative (NEGATIVE) 03/12/17 00:55 Alcohol, Quantitative < 10 mg/dL (0-10) 03/11/17 22:49 Ur L.pneumophila Ag Negative (NEGATIVE) 03/15/17 18:24 Pneumocystis Source Serum 03/16/17 05:30 S. pneumoniae Antigen Not detected 03/16/17 05:30 Blood Type A POSITIVE 03/20/17 09:00 Blood Type Confirm A POSITIVE 03/20/17 09:57 Antibody Screen Negative 03/20/17 09:00 BBK History Checked No verified bt 03/20/17 09:00 Attending/Attestation - Attestation I have personally seen and examined this patient.: Yes I have fully participated in the care of the patient.: Yes I have reviewed all pertinent clinical information, including history, physical exam and plan: Yes Notes (Text): 03/30/17 36 year old male presented with cardiac arrest secondary to suspected overdose. Hospital course had been complicated with prolonged intubation s/p trach and peg , ARDS, seizures/status epilepticus and fevers. MRI brain was consistent with anoxic injury. Fevers were likely central. Bcx likely contaminant. Complete iv antibiotics as per ID. He was on propofol, fentanyl and versed as well as keppra, dilantin and valproic acid. He was being followed by neurology. Multiple attempts were made for possible transfer for 24 hr continuous EEG monitoring; however unsuccessful. He has been accepted to [facility]. Overall prognosis is poor. Raheel Espitia MD Hospitalist.
--- NOTE | 2017-03-30 16:48 | CP.PCM.PN ---
Subjective - Date & Time of Evaluation Date of Evaluation: 03/30/17 Time of Evaluation: 16:20 - Subjective Subjective: Infectious Disease Follow Up: March 30, 2017 36 yo male who presented initially to [facility] found down for up to 9 hours. The patient was found next to multiple empty pill bottles. The patient has been in the hospital for over 2 weeks at this point. He is in respiratory failure and is now trached. The patient is febrile with shakes. Difficult obtaining history as the patient appears to have lived alone. The patient's I believe is estranged. Noted that she is at bedside now. No clinical changes One culture showing gram positive cocci in cluster but FISH indicating coagulase negative staph. Objective - Vital Signs/Intake and Output Vital Signs (last 24 hours): Temp Pulse Resp BP Pulse Ox 100.2 F H 128 H 24 172/91 H 100 03/30/17 04:00 03/30/17 15:10 03/30/17 06:48 03/30/17 14:00 03/30/17 15:10 Intake and Output: 03/30/17 03/30/17 06:59 18:59 Intake Total 2774 Output Total 2500 Balance 274 - Medications Medications: Current Medications Acetaminophen (Tylenol 325 Mg Supp) 325 mg RC Q4H PRN PRN Reason: Fever >100.4 F Last Admin: 03/30/17 07:52 Dose: 325 mg Albuterol/Ipratropium (Duoneb 3 Mg/0.5 Mg (3 Ml) Ud) 3 ml IH Q2H PRN PRN Reason: Shortness of Breath Last Admin: 03/30/17 06:42 Dose: 3 ml Propofol (Diprivan) 1,000 mg in 100 mls @ 3.674 mls/hr IV .Q24H PRN; Protocol; 5 MCG/KG/MIN PRN Reason: TITRATE PER MD ORDER Last Admin: 03/30/17 06:26 Dose: 50 mcg/kg/min, 36.741 mls/hr Phenytoin 100 mg/ Sodium (Chloride) 52 mls @ 104 mls/hr IVPB TID [facility] Last Admin: 03/30/17 13:55 Dose: 104 mls/hr Valproate Sodium 500 mg/ (Sodium Chloride) 105 mls @ 100 mls/hr IVPB Q8 [facility] Last Admin: 03/30/17 13:53 Dose: 100 mls/hr Levetiracetam 1,500 mg/ Sodium (Chloride) 115 mls @ 460 mls/hr IV Q12 [facility] Last Admin: 03/30/17 10:17 Dose: 460 mls/hr Potassium Chloride 40 meq/ (Sodium Chloride) 1,020 mls @ 60 mls/hr IV .Q17H [facility] Last Admin: 03/30/17 10:25 Dose: 60 mls/hr Cefepime HCl (Maxipime 1gm) 1 gm in 100 mls @ 100 mls/hr IVPB Q12 [facility] PRN Reason: Protocol Last Admin: 03/30/17 10:23 Dose: 100 mls/hr Midazolam HCl 250 mg/ Sodium (Chloride) 250 mls @ 20 mls/hr IV .Q12.5H PRN; Protocol; 20 MG/HR PRN Reason: TITRATE PER PROTOCOL Last Admin: 03/30/17 06:27 Dose: 20 mg/hr, 20 mls/hr Fentanyl Citrate (Fentanyl Citrate/Sodium Chloride 1 Mg/100 Ml) 1,000 mcg in 100 mls @ 20 mls/hr IV .Q5H PRN; Protocol; 200 MCG/HR PRN Reason: TITRATE PER MD ORDER Lorazepam (Ativan) 2 mg IVP Q4H PRN; Protocol PRN Reason: Anxiety Last Admin: 03/29/17 23:52 Dose: 2 mg Magnesium Oxide (Mag-Ox) 400 mg PO TID [facility] Last Admin: 03/30/17 13:54 Dose: 400 mg Metoprolol Tartrate (Lopressor) 5 mg IVP Q4 PRN PRN Reason: sbp>160 or HR > 130 BPM Last Admin: 03/30/17 10:19 Dose: 5 mg Metoprolol Tartrate (Lopressor) 25 mg PO BID [facility] Pantoprazole Sodium (Protonix Inj) 40 mg IVP Q12 [facility] Last Admin: 03/30/17 10:28 Dose: 40 mg - Labs Labs: 03/30/17 07:15 03/30/17 07:15 PT 11.9 Seconds (9.9-11.8) H 03/22/17 05:30 INR 1.10 (0.93-1.08) H 03/22/17 05:30 APTT 24.9 Seconds (23.7-30.8) 03/22/17 05:30 - Constitutional Appears: Chronically Ill - Head Exam Additional comments: Obtunded, Intubated, and Ventilated. Trach in place. - ENT Exam ENT Exam: Mucous Membranes Moist, Normal External Ear Exam, TM's Normal Bilaterally Additional comments: trach in place - Neck Exam Additional comments: no JVD - Respiratory Exam Respiratory Exam: Clear to Ausculation Bilateral, NORMAL BREATHING PATTERN. absent: Rales, Rhonchi, Wheezes - Cardiovascular Exam Cardiovascular Exam: REGULAR RHYTHM, RRR, +S1, +S2 - GI/Abdominal Exam GI & Abdominal Exam: Soft, Normal Bowel Sounds. absent: Distended, Tenderness - Extremities Exam Extremities Exam: Joint Swelling, Pedal Edema - Neurological Exam Neurological Exam: CN II-XII Intact. absent: Alert, Awake, Oriented x3 Additional comments: intubated and ventilated. - Skin Additional comments: diffuse edema. Assessment and Plan - Assessment and Plan (Free Text) Assessment: 36 yo male who presented with altered mental status and found next to multiple empty pill bottles. The patient was down for unknown period of time. The patient has normal procalcitonin levels. No leukocytosis currently... initial leukocytosis. Development of fevers. Toxicology screen on admission showed Opiates, Barbiturates, and Benzodiazepine. The patient is ventilated and poorly responsive (on sedation however). The patient is on Vancomycin currently. Consider CT scan of chest and abdomen. Noted negative chest X-ray. Consider stopping any medications that may be unnecessary. Continue Cefepime for now. Fevers up to 101.5 F so far today. Cannot rule out central fever. It appears the one positive culture is coagulase negative staph which is likely a contaminant. Supportive care. More likely central fever in origin. Thank you for allowing me to participate in the care of the patient, we will follow with you.
[2017-03-30 19:34] VITALS: TEMP 100.9
--- NOTE | 2017-04-01 00:03 | EEG ---
CONDITION OF THE RECORDING: Rule out seizure. PAST MEDICAL HISTORY: Hypertension, bipolar, depression, anxiety, cardiac arrest. MEDICATIONS: Lorazepam and Keppra. DESCRIPTION: Background activity of this tracing was composed of 7 cycles per second activity and mostly theta activity was seen 5 to 7 cycles per second and drowsiness and no paroxysmal activity was seen in the record. IMPRESSION: Bilateral cerebral dysfunction, diffuse, severe. Gabriel Rene MD
== END 2017-03-30 18:00 | DRG 878 ==
LOC: ED 22:35 → ERH 23:15 → CCU 03-12 02:28
PROVIDERS: ADMIT Internal Medicine; ATTEND Internal Medicine
PROC: 5A1955Z Respiratory Ventilation, Greater than 96 Consecutive Hours (ICD-10-PCS; 2017-03-12)
PROC: 3E033XZ Introduction of Vasopressor into Peripheral Vein, Percutaneous Approach (ICD-10-PCS; 2017-03-12)
PROC: 0DH60UZ Insertion of Feeding Device into Stomach, Open Approach (ICD-10-PCS; 2017-03-25)
PROC: 0B110F4 Bypass Trachea to Cutaneous with Tracheostomy Device, Open Approach (ICD-10-PCS; principal; 2017-03-25 11:30)
DX: T50.902A Poisoning by unspecified drugs, medicaments and biological substances, intentional self-harm, initial encounter (principal); I46.8 Cardiac arrest due to other underlying condition; J96.01 Acute respiratory failure with hypoxia; N17.0 Acute kidney failure with tubular necrosis; K72.00 Acute and subacute hepatic failure without coma; A41.9 Sepsis, unspecified organism; G93.1 Anoxic brain damage, not elsewhere classified; J18.9 Pneumonia, unspecified organism; R65.21 Severe sepsis with septic shock; Z99.11 Dependence on respirator [ventilator] status; R40.3 Persistent vegetative state; E23.2 Diabetes insipidus; E87.1 Hypo-osmolality and hyponatremia; E87.5 Hyperkalemia; E87.6 Hypokalemia; E87.0 Hyperosmolality and hypernatremia; F11.10 Opioid abuse, uncomplicated; F13.10 Sedative, hypnotic or anxiolytic abuse, uncomplicated; K92.2 Gastrointestinal hemorrhage, unspecified; I48.91 Unspecified atrial fibrillation; I10 Essential (primary) hypertension; F31.9 Bipolar disorder, unspecified; F41.9 Anxiety disorder, unspecified; E83.51 Hypocalcemia; E88.09 Other disorders of plasma-protein metabolism, not elsewhere classified; E66.9 Obesity, unspecified; D64.9 Anemia, unspecified; G40.901 Epilepsy, unspecified, not intractable, with status epilepticus; E83.42 Hypomagnesemia; I27.20 Pulmonary hypertension, unspecified; Z75.1 Person awaiting admission to adequate facility elsewhere; Z72.0 Tobacco use; Z68.33 Body mass index [BMI] 33.0-33.9, adult